=== PATIENT | female | born 1965 | race Caucasian/White ===

== ENCOUNTER 2020-02-27 10:02 | Day surgery (SDC) | payer MEDICAID, SELFPAY ==
[2020-01-15 09:45] VITALS: BMI 23.6
--- NOTE | 2020-01-15 09:58 | HO.ANESPROP2 ---
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) Depression Elevated rheumatoid factor Hand paresthesia Hepatitis C Hepatomegaly Hypertension Microhematuria Polysubstance abuse Surgical History Surgical History History of delivery History of esophagogastroduodenoscopy (EGD) Social History Social History Alcohol intake: current Alcohol intake frequency: 3 or more drinks per day Alcohol type: beer Smoking Status: Current every day smoker Smoked in Last 30 Days: Yes Patient Interested in Nicotine Replacement: No Patient Given Instructions on How to Stop Smoking: No Second Hand Smoke Exposure: No Use of substances other than those prescribed or required for medical reasons: No Advance Directives: No Advance Directives Information Provided: Yes Advance Directives on File: No Meds Allergies Allergy/AdvReac Type Severity Reaction Status Date / Time No Known Allergies Allergy Unverified 12/04/19 15:13 none Allergy Unknown Uncoded 07/05/18 00:00 Exam Exam Date and Time: January 15, 2020 0958 Height,Weight and Vital Signs: Height 4 ft 11 in Weight 53.07 kg Pertinent Lab Results Pertinent Lab Results: Laboratory Tests 09/24/19 11/10/19 15:38 15:25 WBC 3.6 L Hgb 9.9 L Hct 32.7 L Plt Count 57 L Sodium 134 L Potassium 3.7 Chloride 101 BUN 10 Creatinine 0.91 Assessment and Plan Assessment Anesthesia Assessment: Chart Reviewed
--- NOTE | 2020-02-25 14:51 | P.CONAN_ITS ---
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) Depression Elevated rheumatoid factor Hand paresthesia Hepatitis C Hepatomegaly History of abdominal paracentesis Hypertension Microhematuria Panic attacks Polysubstance abuse Surgical History Surgical History (Updated 02/24/20 @ 08:51 by Carole De La Torre) History of delivery History of esophagogastroduodenoscopy (EGD) Social History Social History Alcohol intake: current Alcohol intake frequency: 3 or more drinks per day Alcohol type: beer Smoking Status: Current every day smoker Cigarettes Per Day: 5.0 Second Hand Smoke Exposure: No Meds Allergies Allergy/AdvReac Type Severity Reaction Status Date / Time No Known Allergies Allergy Unverified 02/24/20 08:41 Home Medications Medication Instructions Recorded Confirmed Type beclomethasone dipropionate [Qvar 1 inh INHALATION BID 02/24/20 02/24/20 History RediHaler] buprenorphine-naloxone [Suboxone] 1 film BUCCAL DAILY 02/24/20 02/24/20 History fluticasone propionate [Flonase] 1 spray INTRANASAL DAILY 02/24/20 02/24/20 History furosemide 40 mg PO DAILY 02/24/20 02/24/20 History lisinopril 5 mg PO DAILY 02/24/20 02/24/20 History multivitamin 1 tab PO DAILY 02/24/20 02/24/20 History omeprazole 20 mg PO BID 02/24/20 02/24/20 History sertraline 50 mg PO DAILY 02/24/20 02/24/20 History spironolactone 25 mg PO DAILY 02/24/20 02/24/20 History thiamine HCl (vitamin B1) 100 mg PO DAILY 02/24/20 02/24/20 History trazodone 50 mg PO BEDTIME 02/24/20 02/24/20 History Exam Exam Date and Time: February 25, 2020 1451 Height,Weight and Vital Signs: Height 4 ft 11 in Weight 53.07 kg
--- NOTE | 2020-02-26 13:12 | HO.ANESPROP2 ---
HPI - Anesthesia Eval Consult details Narrative: 54yo F for Upper Endoscopy with Banding cx'd previously for ETOH DOS. 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) Depression Elevated rheumatoid factor Hand paresthesia Hepatitis C Hepatomegaly History of abdominal paracentesis Hypertension Microhematuria Panic attacks Polysubstance abuse Surgical History Surgical History (Updated 02/24/20 @ 08:51 by Carole De La Torre) History of delivery History of esophagogastroduodenoscopy (EGD) Social History Social History Alcohol intake: current Alcohol intake frequency: 3 or more drinks per day Alcohol type: beer Smoking Status: Current every day smoker Cigarettes Per Day: 5.0 Smoked in Last 30 Days: Yes Patient Interested in Nicotine Replacement: No Patient Given Instructions on How to Stop Smoking: No Second Hand Smoke Exposure: No Use of substances other than those prescribed or required for medical reasons: No Advance Directives: No Advance Directives Information Provided: Yes Advance Directives on File: No Meds Allergies Allergy/AdvReac Type Severity Reaction Status Date / Time No Known Allergies Allergy Unverified 02/24/20 08:41 Home Medications Medication Instructions Recorded Confirmed Type beclomethasone dipropionate [Qvar 1 inh INHALATION BID 02/24/20 02/24/20 History RediHaler] buprenorphine-naloxone [Suboxone] 1 film BUCCAL DAILY 02/24/20 02/24/20 History fluticasone propionate [Flonase] 1 spray INTRANASAL DAILY 02/24/20 02/24/20 History furosemide 40 mg PO DAILY 02/24/20 02/24/20 History lisinopril 5 mg PO DAILY 02/24/20 02/24/20 History multivitamin 1 tab PO DAILY 02/24/20 02/24/20 History omeprazole 20 mg PO BID 02/24/20 02/24/20 History sertraline 50 mg PO DAILY 02/24/20 02/24/20 History spironolactone 25 mg PO DAILY 02/24/20 02/24/20 History thiamine HCl (vitamin B1) 100 mg PO DAILY 02/24/20 02/24/20 History trazodone 50 mg PO BEDTIME 02/24/20 02/24/20 History Exam Exam Date and Time: February 26, 2020 1312 Height,Weight and Vital Signs: Height 4 ft 11 in Weight 53.07 kg Pertinent Lab Results Pertinent Lab Results: Laboratory Tests 09/24/19 11/10/19 15:38 15:25 WBC 3.6 L Hgb 9.9 L Hct 32.7 L Plt Count 57 L Sodium 134 L Potassium 3.7 Chloride 101 BUN 10 Creatinine 0.91 Assessment and Plan Assessment Anesthesia Assessment: Chart Reviewed
== END 2020-02-27 23:59 ==
LOC: HO.SSS 10:03
PROVIDERS: PCP Family Medicine; Visit Provider Internal Medicine Gastroenterology
DX: K70.31 Alcoholic cirrhosis of liver with ascites (principal); Z53.29 Procedure and treatment not carried out because of patient's decision for other reasons

== ENCOUNTER → 2020-03-18 10:14 | Outpatient (BNVA) | payer MEDICAID, SELFPAY | PROVIDERS: PCP Family Medicine; Visit Provider Internal Medicine Gastroenterology | DX: Z76.89 Persons encountering health services in other specified circumstances (principal) ==

== ENCOUNTER 2020-04-07 09:02 | Outpatient (REF) | payer MEDICAID, SELFPAY ==
--- NOTE | 2020-04-07 09:07 | US_ITS ---
EXAMINATION: US ABDOMEN COMPLETE CLINICAL INFORMATION: Alcoholic cirrhosis of liver with ascites. COMPARISON: Abdominal ultrasound 08/15/2019. Renal ultrasound with bladder 11/28/2016. TECHNIQUE: Real-time imaging of the abdominal viscera. FINDINGS: PANCREAS: Normal. ABDOMINAL AORTA: The proximal, mid, and distal segments are normal in caliber. INFERIOR VENA CAVA: Visualized portions are normal. LIVER: Liver is of normal size, coarse echotexture with lobulated border. No focal hepatic lesion. There is no intrahepatic biliary duct dilatation seen. GALLBLADDER: The gallbladder is physiologically distended. Multiple mobile gallstones are present. There is mild gallbladder wall thickness measuring 0.9 cm. No pericholecystic fluid collection seen. COMMON BILE DUCT: Normal in caliber measuring 1.0 cm in diameter. RIGHT KIDNEY: Normal. No hydronephrosis. No renal calculi or focal parenchymal lesions. The kidney measures 9.7 cm in maximum dimension. LEFT KIDNEY: Normal. No hydronephrosis. No renal calculi or focal parenchymal lesions. The kidney measures 12.8 cm in maximum dimension. SPLEEN: The spleen measures 16.3 cm in maximum dimension. There are 2 small accessory splenules measuring 2.1 x 2.0 x 2.5 cm and 1.8 x 1.4 x 1.8 cm. FREE FLUID: None. US/US abdomen complete IMPRESSION: 1. Coarse echogenic liver without focal lesion. 2. Two small accessory splenules. 3. Cholelithiasis with wall thickness measuring 0.9 cm. No pericholecystic fluid collection.
== END 2020-04-07 09:03 | disposition home or self-care (01) ==
LOC: HO.US 09:02
PROVIDERS: Visit Provider Internal Medicine Gastroenterology
DX: K70.31 Alcoholic cirrhosis of liver with ascites (principal)
CPT/HCPCS: 76700

== ENCOUNTER 2020-07-20 19:38 | Inpatient (IN) | payer MEDICAID, SELFPAY ==
--- NOTE | ~2020-07-20 | US_ITS ---
EXAMINATION: ULTRASOUND-GUIDED PARACENTESIS. CLINICAL INFORMATION: Ascites. COMPARISON: None TECHNIQUE: Following explaining ultrasound-guided paracentesis procedure, benefits and risk, a written consent was obtained. Patient was placed supine on ultrasound stretcher inflammatory ultrasound imaging was performed. An optimal site was selected and marked. The marked site was cleaned and draped in usual sterile manner. 1% lidocaine was administered puncture site along the right midabdomen. Through a small skin incision a 4 [place] Yueh catheter was advanced into the peritoneal space. After observing fluid return, this stylet was withdrawn and catheter connected to vacuum bottle via connecting cannula. After obtaining few 100 mL of acetic fluid patient coughed and the catheter came out. Repeat ultrasound imaging was obtained through the right abdomen. A optimal site was selected and the area was cleaned in usual sterile manner. 1% lidocaine was injected. Through a small skin incision a 5 [place] Yueh catheter was advanced into the right peritoneal space. After obtaining fluid return, stylet was withdrawn and catheter connected to vacuum bottle via connecting cannula. After obtaining all fluid and observing no more fluid return, catheter was withdrawn and complete hemostasis achieved at puncture site. Patient tolerated procedure extremely well. FINDINGS: On preliminary ultrasound imaging there is diffuse ascites. At approximately 3.2 L of document fluid removed. Part of this fluid was sent to pathology for cell culture and cell count and 13 g thinning. US/US paracentesis abd w/image IMPRESSION: Successful ultrasound-guided paracentesis performed without immediate complications.
--- NOTE | ~2020-07-20 | US_ITS ---
EXAMINATION: ULTRASOUND-GUIDED PARACENTESIS CLINICAL INFORMATION: Ascites COMPARISON: Previous abdominal ultrasound March 2020 TECHNIQUE: Procedure and risks and benefits including bleeding and infection were discussed with the patient and informed consent was obtained. The right lower quadrant was prepped and draped in the usual sterile fashion. The skin and soft tissues were anesthetized with 1% lidocaine plain. Ultrasound guidance and a 5 Chadian rapid centesis catheter, access to the ascitic fluid was obtained. 2.7 L of clear yellow fluid was removed. No diagnostic specimen was sent. FINDINGS: There is a moderate amount of ascites. US/US paracentesis abd w/image IMPRESSION: Ultrasound-guided paracentesis.
--- NOTE | ~2020-07-20 | XR_ITS ---
EXAMINATION: XR CHEST CLINICAL INFORMATION: Shortness of breath COMPARISON: Chest x-ray 04/03/2019 TECHNIQUE: Frontal view of the chest was obtained. FINDINGS: Cardiac silhouette is normal in size. Lungs are well aerated. Patchy bilateral airspace opacities are noted. There is no gross lobar consolidation. No pleural effusion or pneumothorax. No gross osseous abnormality. XR/XR chest 1V IMPRESSION: Patchy bilateral airspace disease most suggestive of viral infiltrate. Clinical correlation recommended.
--- NOTE | ~2020-07-20 | US_ITS ---
EXAMINATION: US ABDOMEN LIMITED CLINICAL INFORMATION: Evaluate for ascites. COMPARISON: Ultrasound abdomen complete 04/07/2020 and 08/15/2019. CT abdomen and pelvis urinary 05/08/2018. TECHNIQUE: Real-time imaging of all 4 quadrants. FINDINGS: Small amount of anechoic free fluid is present within the right upper quadrant and both lower quadrants. However, no free fluid is detected around the region of the spleen. US/US abdomen limited IMPRESSION: Small volume of ascitic fluid is present within the abdomen.
--- NOTE | ~2020-07-20 | US_ITS ---
EXAMINATION: US ABDOMEN LIMITED CLINICAL INFORMATION: Evaluate for ascites. COMPARISON: Ultrasound abdomen limited 07/22/2020. Ultrasound abdomen complete 04/07/2020. CT abdomen and pelvis 09/07/2018. MRI abdomen 09/07/2016. TECHNIQUE: Real-time imaging of all 4 quadrants. FINDINGS: Mild anechoic fluid is seen in all 4 quadrants. Partial visualization of hepatic cirrhosis. US/US abdomen limited IMPRESSION: Small peritoneal ascites appears mildly increased compared to the previous study.
[2020-07-20 19:57] VITALS: BP 103/53; PULSE 90; RESP 15; TEMP 37.2; O2SAT 93; BMI 24.2
[2020-07-20 20:04] VITALS: BP 98/57; PULSE 92; RESP 14; TEMP 37.2; O2SAT 93
--- NOTE | 2020-07-20 20:21 | ED_ITS ---
HPI - SOB/Dyspnea General Chief Complaint: Dyspnea Stated Complaint: INCREASING SOB,HX COPD Time Seen by Provider: 07/20/20 20:20 Source: patient Mode of arrival: ambulatory Limitations: no limitations History of Present Illness HPI Narrative: Patient 54 years old history of alcohol use and alcoholic cirrhosis COPD thrombocytopenia poly substance abuse sent from [facility] for 4 days of cough shortness of breath low-grade fever and chills was saturating 80% at room air improved to 97% on 2 L according to patient her sister was also sick last week but she does not know about her COVID testing. Patient had rapid COVID test done at the clinic which was negative. Patient still been drinking alcohol and last drink was earlier today. Patient denied any chest pain no significant abdominal pain Related Data Home Medications Medication Instructions Recorded Confirmed buprenorphine-naloxone [Suboxone] 1 film BUCCAL DAILY 02/24/20 07/20/20 furosemide 40 mg PO DAILY 02/24/20 07/20/20 multivitamin 1 tab PO DAILY 02/24/20 07/20/20 omeprazole 20 mg PO BID 02/24/20 07/20/20 sertraline 50 mg PO DAILY 02/24/20 07/20/20 spironolactone 100 mg PO DAILY 02/24/20 07/20/20 trazodone 50 mg PO BEDTIME 02/24/20 07/20/20 docusate sodium [DOK] 100 mg PO DAILY 07/20/20 07/20/20 ipratropium-albuterol [Combivent 1 puff INHALATION Q4H PRN 07/20/20 07/20/20 Respimat] Previous Rx's Medication Instructions Recorded magnesium oxide 400 mg PO DAILY 30 Days #30 tab 04/16/20 rifaximin 550 mg tablet 550 mg PO BID 30 Days #60 tab 06/14/20 Allergies Allergy/AdvReac Type Severity Reaction Status Date / Time No Known Allergies Allergy Verified 03/18/20 10:14 Review of Systems Review of Systems: Constitutional : No Weight loss, No Fever, No Chills ENT/Mouth : No sore throat, No Rhinorrhea Eyes: No Eye Pain, No Swelling Cardiovascular : No Chest Pain, no palpitations Respiratory : + Cough, No Sputum, ++shortness of breath Gastrointestinal : no Nausea, No Vomiting, No Diarrhea, No abdominal Pain, no black stools Genitourinary : No Dysuria, No Urinary Frequency Musculoskeletal : No joint pain, No Myalgias, No Joint Swelling Skin : No Skin Lesions, No rash Neuro : No Weakness, No Numbness, No Dizziness, No Headache Psych : No Anxiety/Panic, No Depression Heme/Lymph: No Bruising, No Lymphadenopathy Endocrine : No Polyuria, No Polydipsia All other systems reviewed and are negative PMFSH Past Medical History Medical History Alcohol abuse Anxiety COPD (chronic obstructive pulmonary disease) 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) Elevated rheumatoid factor Hand paresthesia Hepatitis C Hepatomegaly History of abdominal paracentesis Microhematuria Panic attacks Polysubstance abuse Surgical History History of delivery History of esophagogastroduodenoscopy (EGD) (~02/2017) Family History Family History Father Family history of high blood pressure Mother Alive and well Social History Social History Alcohol intake: current Alcohol intake frequency: 3 or more drinks per day Alcohol type: beer Smoking Status: Current every day smoker Tobacco Type: Cigarette Smoked in Last 30 Days: Yes Second Hand Smoke Exposure: No Use of substances other than those prescribed or required for medical reasons: No Advance Directives: No Advance Directives Information Provided: No Patient : No Physical Exam Vital Signs: Vital Signs: Last Vital Signs Temp 98.9 F 07/21/20 00:00 Pulse 99 07/21/20 00:00 Resp 21 H 07/21/20 00:00 BP 119/74 07/21/20 00:00 Pulse Ox 94 07/21/20 00:00 Oxygen Flow Rate 2 07/20/20 19:57 Body Mass Index 24.2 Appearance: Alert. Oriented X3. In mild distress. Eyes: PERRLA, No Nystagmus ENT: Pharynx normal. Oral Mucosa moist Neck: Normal inspection. Neck supple. CVS: Normal heart rate and rhythm. Pulses normal. Respiratory: Mild respiratory distress. Equal air entry bilateral, prolonged expiration with diffuse crackles bilateral Abdomen: Distended abdomen nontender, free fluid+ Bowel sounds are present, no mass palpable, no CVA tenderness Skin: Skin warm and dry. Normal skin color. Normal skin turgor. Extremities: No lower extremity edema. No calf tenderness Neuro: Oriented X 3. No motor deficit. No sensory deficit.No cerebellar signs , cranial nerves II-XII intact MDM - SOB/Dyspnea MDM Narrative Medical decision making narrative: Patient has alcoholic cirrhosis with recent contact with COVID patient came with body aches low-grade fever and cough for last 4- 5 days with hypoxia chest x-ray showed bilateral ground-glass opacities COVID PCR test came positive. Patient has elevated lactic acidosis secondary to hypoxia and COVID infection. Patient received IV antibiotics IV Decadron and 1 L of IV fluids fluid was guarded because of COVID-19 infection. patient does not have bacterial sepsis Lab Data Attestation: I reviewed the patient's lab results. Result diagrams: 07/20/20 20:44 07/20/20 20:43 Labs: Lab Results 07/20/20 07/20/20 07/20/20 Range/Units 20:43 20:43 20:43 WBC (4.8-10.8) X10*3/uL RBC (4.20-5.50) X10*6/uL Hgb (12.0-16.0) g/dl Hct (37-47) % MCV (80-98) fL MCH (27.0-33.0) pg MCHC (31.0-35.0) g/dl RDW (11.0-16.0) % Plt Count (160-400) X10*3/uL MPV Immature Gran % (Auto) Neut % (Auto) Lymph % (Auto) Noble % (Auto) Eos % (Auto) Baso % (Auto) Lymph # (Auto) Noble # (Auto) Eos # (Auto) Baso # (Auto) Abs Immat Gran (auto) Absolute Neuts (auto) Absolute Nucleated RBC (0.0-0.012) X10*3/uL Nucleated RBC % (auto) (0.0-0.2) /100WBC Neutrophils % (Manual) (45-73) % Band Neutrophils % (3-5) % Lymphocytes % (Manual) (20-40) % Monocytes % (Manual) (2-11) % Abs Neuts (Manual) (2.2-7.9) X10*3/uL Lymphocytes # (Manual) (0.6-4.8) X10*3/uL Monocytes # (Manual) (0.0-1.2) X10*3/uL Toxic Vacuolation Platelet Estimate (NORMAL) Plt Morphology Comment RBC Morphology Polychromasia /OIF Target Cells /OIF PT 31.0 H D (10.8-13.0) SEC INR 2.6 H (0.9-1.1) APTT (24.1-38.0) SEC Sodium 127 L (135-145) mmol/L Potassium 3.9 (3.3-5.1) mmol/L Chloride 96 (96-108) mmol/L Carbon Dioxide 23 (22-29) mmol/L Anion Gap 12 (12-20) BUN 21 H (9-16) mg/dL Creatinine 1.31 (0.5-1.4) mg/dL Estim Creat Clear Calc 37.3 Estimated GFR 42 Random Glucose 102 (60-115) mg/dL Lactic Acid (0.5-2.0) mmol/L Calcium 7.1 L (8.4-10.2) mg/dL Total Bilirubin 4.6 H (0.0-1.0) mg/dL Direct Bilirubin 3.7 H (0.0-0.5) mg/dL AST 177 H (5-31) U/L ALT 46 H (0-31) U/L Alkaline Phosphatase 150 H D (39-117) U/L Ammonia (13-55) umol/L Troponin I High Sens 13.9 (<3.5-17.0) ng/L Total Protein 7.5 (6.5-8.0) g/dL Albumin 2.1 L (3.5-5.0) g/dL Lipase 93 H (8-78) U/L Ethyl Alcohol mg/dL Coronavirus (PCR) (Negative) Influenza Type A (PCR) (Negative) Influenza Type B (PCR) (Negative) RSV RNA Qual (PCR) (Negative) 07/20/20 07/20/20 07/20/20 Range/Units 20:43 20:43 20:43 WBC (4.8-10.8) X10*3/uL RBC (4.20-5.50) X10*6/uL Hgb (12.0-16.0) g/dl Hct (37-47) % MCV (80-98) fL MCH (27.0-33.0) pg MCHC (31.0-35.0) g/dl RDW (11.0-16.0) % Plt Count (160-400) X10*3/uL MPV Immature Gran % (Auto) Neut % (Auto) Lymph % (Auto) Noble % (Auto) Eos % (Auto) Baso % (Auto) Lymph # (Auto) Noble # (Auto) Eos # (Auto) Baso # (Auto) Abs Immat Gran (auto) Absolute Neuts (auto) Absolute Nucleated RBC (0.0-0.012) X10*3/uL Nucleated RBC % (auto) (0.0-0.2) /100WBC Neutrophils % (Manual) (45-73) % Band Neutrophils % (3-5) % Lymphocytes % (Manual) (20-40) % Monocytes % (Manual) (2-11) % Abs Neuts (Manual) (2.2-7.9) X10*3/uL Lymphocytes # (Manual) (0.6-4.8) X10*3/uL Monocytes # (Manual) (0.0-1.2) X10*3/uL Toxic Vacuolation Platelet Estimate (NORMAL) Plt Morphology Comment RBC Morphology Polychromasia /OIF Target Cells /OIF PT (10.8-13.0) SEC INR (0.9-1.1) APTT (24.1-38.0) SEC Sodium (135-145) mmol/L Potassium (3.3-5.1) mmol/L Chloride (96-108) mmol/L Carbon Dioxide (22-29) mmol/L Anion Gap (12-20) BUN (9-16) mg/dL Creatinine (0.5-1.4) mg/dL Estim Creat Clear Calc Estimated GFR Random Glucose (60-115) mg/dL Lactic Acid 2.6 H* (0.5-2.0) mmol/L Calcium (8.4-10.2) mg/dL Total Bilirubin (0.0-1.0) mg/dL Direct Bilirubin (0.0-0.5) mg/dL AST (5-31) U/L ALT (0-31) U/L Alkaline Phosphatase (39-117) U/L Ammonia (13-55) umol/L Troponin I High Sens (<3.5-17.0) ng/L Total Protein (6.5-8.0) g/dL Albumin (3.5-5.0) g/dL Lipase (8-78) U/L Ethyl Alcohol < 10 mg/dL Coronavirus (PCR) POSITIVE A (Negative) Influenza Type A (PCR) NEGATIVE (Negative) Influenza Type B (PCR) NEGATIVE (Negative) RSV RNA Qual (PCR) NEGATIVE (Negative) 07/20/20 07/20/20 07/20/20 Range/Units 20:43 20:43 20:44 WBC 12.1 H (4.8-10.8) X10*3/uL RBC 2.98 L (4.20-5.50) X10*6/uL Hgb 9.2 L (12.0-16.0) g/dl Hct 28.8 L (37-47) % MCV 96.6 (80-98) fL MCH 30.9 (27.0-33.0) pg MCHC 31.9 (31.0-35.0) g/dl RDW 26.5 H (11.0-16.0) % Plt Count 33 L (160-400) X10*3/uL MPV Not Reportable Immature Gran % (Auto) Cancelled Neut % (Auto) Cancelled Lymph % (Auto) Cancelled Noble % (Auto) Cancelled Eos % (Auto) Cancelled Baso % (Auto) Cancelled Lymph # (Auto) Cancelled Noble # (Auto) Cancelled Eos # (Auto) Cancelled Baso # (Auto) Cancelled Abs Immat Gran (auto) Cancelled Absolute Neuts (auto) Cancelled Absolute Nucleated RBC 0.040 H (0.0-0.012) X10*3/uL Nucleated RBC % (auto) 0.3 H (0.0-0.2) /100WBC Neutrophils % (Manual) 89 H (45-73) % Band Neutrophils % 3 (3-5) % Lymphocytes % (Manual) 4 L (20-40) % Monocytes % (Manual) 4 (2-11) % Abs Neuts (Manual) 11.1 H (2.2-7.9) X10*3/uL Lymphocytes # (Manual) 0.5 L (0.6-4.8) X10*3/uL Monocytes # (Manual) 0.5 (0.0-1.2) X10*3/uL Toxic Vacuolation PRESENT Platelet Estimate DECREASED (NORMAL) Plt Morphology Comment NORMAL RBC Morphology NOTED Polychromasia 1+ (0-2) /OIF Target Cells 1+ (5-14) /OIF PT (10.8-13.0) SEC INR (0.9-1.1) APTT 35.8 (24.1-38.0) SEC Sodium (135-145) mmol/L Potassium (3.3-5.1) mmol/L Chloride (96-108) mmol/L Carbon Dioxide (22-29) mmol/L Anion Gap (12-20) BUN (9-16) mg/dL Creatinine (0.5-1.4) mg/dL Estim Creat Clear Calc Estimated GFR Random Glucose (60-115) mg/dL Lactic Acid (0.5-2.0) mmol/L Calcium (8.4-10.2) mg/dL Total Bilirubin (0.0-1.0) mg/dL Direct Bilirubin (0.0-0.5) mg/dL AST (5-31) U/L ALT (0-31) U/L Alkaline Phosphatase (39-117) U/L Ammonia 92 H (13-55) umol/L Troponin I High Sens (<3.5-17.0) ng/L Total Protein (6.5-8.0) g/dL Albumin (3.5-5.0) g/dL Lipase (8-78) U/L Ethyl Alcohol mg/dL Coronavirus (PCR) (Negative) Influenza Type A (PCR) (Negative) Influenza Type B (PCR) (Negative) RSV RNA Qual (PCR) (Negative) ECG Data Attestation: I personally reviewed and interpreted this ECG as follows: Interpretation: Normal sinus rhythm heart rate 89 beats per minute poor progression of R-wave in anterior leads normal intervals normal axis no acute ischemic changes Discharge Plan Discharge Clinical Impression: COVID-19, Alcoholic cirrhosis of liver with ascites, Hypoxia, Thrombocytopenia, Hyperammonemia COPD (chronic obstructive pulmonary disease) Qualifiers: COPD type: chronic bronchitis Chronic bronchitis type: mucopurulent Qualified Code(s): J41.1 - Mucopurulent chronic bronchitis Patient Disposition: Admitted As Inpatient
--- NOTE | 2020-07-20 20:22 | ECG_ITS ---
Test Reason : DIFFICULTY BREATHING Blood Pressure : / mmHG Vent. Rate : 089 BPM Atrial Rate : 089 BPM P-R Int : 136 ms QRS Dur : 082 ms QT Int : 390 ms P-R-T Axes : -03 -12 040 degrees QTc Int : 474 ms Normal sinus rhythm Minimal criteria for LVH, could be normal variant Borderline ECG When compared with ECG of 08-AUG-2016 13:07, No significant changes seen Referred By: Davey Meehan Electronically Signed By:SHERIF BLANC
[2020-07-20 20:50] VITALS: BP 112/57; PULSE 89; RESP 18; O2SAT 97
[2020-07-20 21:02] LABS: INTERNATIONAL NORM RATIO 2.6 (0.9-1.1)
[2020-07-20 21:05] LABS: Partial Thromboplastin Time 35.8 SEC (24.1-38.0)
[2020-07-20 21:12] LABS: Hematocrit 28.8 % (37-47); Mean Corpuscular Volume 96.6 fL (80-98); NRBC Pct Auto 0.3 /100WBC (0.0-0.2); Red Blood Count 2.98 X10*6/uL (4.20-5.50)
[2020-07-20 21:14] LABS: Hemoglobin 9.2 g/dl (12.0-16.0); Mean Corpuscular HGB Conc 31.9 g/dl (31.0-35.0); Mean Corpuscular Hemoglobin 30.9 pg (27.0-33.0); Red Cell Distribution Width 26.5 % (11.0-16.0); White Blood Count 12.1 X10*3/uL (4.8-10.8)
[2020-07-20 21:15] LABS: Ammonia 92 umol/L (13-55)
[2020-07-20 21:18] LABS: PLT ABN DIST 1; Platelet Count 33 X10*3/uL (160-400)
[2020-07-20 21:20] LABS: Ethanol < 10 mg/dL; Lactic Acid 2.6 mmol/L (0.5-2.0)
[2020-07-20 21:22] LABS: Alanine Aminotransferase 46 U/L (0-31); Albumin Level 2.1 g/dL (3.5-5.0); Alkaline Phosphatase 150 U/L (39-117); Anion Gap 12 (12-20); Aspartate Amino Transferase 177 U/L (5-31); Bilirubin Direct 3.7 mg/dL (0.0-0.5); Bilirubin Total 4.6 mg/dL (0.0-1.0); Blood Urea Nitrogen 21 mg/dL (9-16); Calcium 7.1 mg/dL (8.4-10.2); Carbon Dioxide 23 mmol/L (22-29); Chloride 96 mmol/L (96-108); Creatinine Clr Calc Pharmacy 37.3; Estimated Glomerular Filt Rate 42; Glucose Random 102 mg/dL (60-115); Potassium 3.9 mmol/L (3.3-5.1); Sodium 127 mmol/L (135-145); Total Protein 7.5 g/dL (6.5-8.0)
[2020-07-20 21:24] LABS: Troponin-I High Sensitivity 13.9 ng/L (<3.5-17.0)
[2020-07-20 21:33] LABS: Influenza A PCR NEGATIVE (Negative); Influenza B PCR NEGATIVE (Negative); Resp Syncy Virus RNA Qual PCR NEGATIVE (Negative); SARS COV2 PCR INHOUSE POSITIVE (Negative)
[2020-07-20 21:34] LABS: Lipase 93 U/L (8-78)
[2020-07-20 21:34] LABS: Band Neutrophils Percent 3 % (3-5); Lymphocytes Absolute Manual 0.5 X10*3/uL (0.6-4.8); Lymphocytes Percent Manual 4 % (20-40); Monocytes Absolute Manual 0.5 X10*3/uL (0.0-1.2); Monocytes Percent Manual 4 % (2-11); Neutrophils Absolute Manual 11.1 X10*3/uL (2.2-7.9); Neutrophils Percent Manual 89 % (45-73)
[2020-07-20 21:35] LABS: RBC Morphology NOTED; Target Cells 1+ (5-14) /OIF
[2020-07-20 21:36] LABS: Polychromasia 1+ (0-2) /OIF; Toxic Vacuolation PRESENT
[2020-07-20 21:39] LABS: Platelet Estimate DECREASED (NORMAL); Platelet Morphology Comment NORMAL
[2020-07-20] MEDS: cefTRIAXone sodium 1 GM in 0.9 % Sodium Chloride 50 ML IV (21:40)
[2020-07-20 22:00] VITALS: BP 113/61; PULSE 91; RESP 16; O2SAT 94
[2020-07-20] MEDS: Azithromycin 500 MG in 0.9 % Sodium Chloride 250 ML 125 MG IV (22:20)
[2020-07-20 22:52] LABS: Reflex Lactate? Lactic Acid Added
[2020-07-20] MEDS: 0.9 % Sodium Chloride 1,000 ML 999 ML IVCONT (22:58)
[2020-07-20] MEDS: dexAMETHasone sod phosphate 4 MG/ML VIAL 6 MG IVPUSH (23:01)
[2020-07-20] MEDS: Albuterol/Iprat 2.5/0.5MG 3 ML AMPUL.NEB INHALE (23:18)
[2020-07-20 23:26] VITALS: PULSE 98; O2SAT 95
[2020-07-20] MEDS: Lactulose 20 GM/30 ML SOLUTION PO (23:47)
--- NOTE | 2020-07-20 23:58 | PC.NURSE ---
Admitting MD is at bedside
[2020-07-21] VITALS (12 sets, daily range): BP systolic 103–145; BP diastolic 64–85; PULSE 76–113; RESP 14–24; TEMP 36.2–37.2; O2SAT 94–97
--- NOTE | 2020-07-21 00:12 | P.HPHOSP_ITS ---
History of Present Illness Date of Service: 07/20/20 Chief Complaint: SOB 54-year-old female with past medical history of alcoholic liver cirrhosis, ascites, hepatitis-C, COPD, alcohol abuse, anxiety, polysubstance abuse presents to the hospital complaints of shortness of breath for the past few days. Patient reports cough, sputum production, and some mild fever and chills. Patient reports that her with sick recently but was not confirmed COVID. Denies any chest pain, no abdominal pain although feels her abdomen is very tired from all the ascites, denies any nausea or vomiting, no diarrhea or constipation, although has some episodes of loss of bowel control, denies any urinary symptoms and no lower extremity edema. She denies any weakness numbness or tingling. On arrival to the ED patient noted to be 85% O2 on room air, currently on 2 L satting 92-94%. Other vital significant for BP of 129/79, heart rate of 113, respiratory rate of 24, temp of 98.4?, Labs on arrival are WBC count of 12.1, hemoglobin of 9.2, hematocrit 28.8, PT of 31, INR of 2.6, sodium 127, BUN of 21, creatinine of 131, lactic acid of 2.6 which improved to 1.6, total bili of 4.6, direct bili of 3.7, AST of 177, ALT of 46, alk-phos of 150, ammonia of 92, albumin of 2.1, lipase of 93, UA that is positive for blood and RBC, UDS negative, COVID-19 positive. Chest x-ray shows bilateral patchy airspace disease most suggestive of viral pneumonia Past medical history as below on confirmed with patient Review of Systems Review of Systems: Yes all other systems are reviewed and are negative [facility] Medical History Alcohol abuse Anxiety COPD (chronic obstructive pulmonary disease) 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) Elevated rheumatoid factor Hand paresthesia Hepatitis C Hepatomegaly History of abdominal paracentesis Microhematuria Panic attacks Polysubstance abuse Family History Father Family history of high blood pressure Mother Alive and well Surgical History History of delivery History of esophagogastroduodenoscopy (EGD) (~02/2017) Social History Alcohol intake: current Alcohol intake frequency: 3 or more drinks per day Alcohol type: beer Smoking Status: Current every day smoker Tobacco Type: Cigarette Smoked in Last 30 Days: Yes Second Hand Smoke Exposure: No Use of substances other than those prescribed or required for medical reasons: No Advance Directives: No Advance Directives Information Provided: No Patient : No Meds Allergies Allergy/AdvReac Type Severity Reaction Status Date / Time No Known Allergies Allergy Verified 03/18/20 10:14 Active Medications: Current Medications Generic Name Dose Route Start Last Admin Trade Name Freq PRN Reason Stop Dose Admin Pharmacy Consult 1 each 07/20/20 20:32 Consult Rx Perform Med Rec MISCELLANE ONCE PRN Consult order Home Medications Medication Instructions Recorded Confirmed Last Taken Type buprenorphine-naloxone [Suboxone] 1 film BUCCAL DAILY 02/24/20 07/20/20 Unknown History furosemide 40 mg PO DAILY 02/24/20 07/20/20 Unknown History multivitamin 1 tab PO DAILY 02/24/20 07/20/20 Unknown History omeprazole 20 mg PO BID 02/24/20 07/20/20 Unknown History sertraline 50 mg PO DAILY 02/24/20 07/20/20 Unknown History spironolactone 100 mg PO DAILY 02/24/20 07/20/20 Unknown History trazodone 50 mg PO BEDTIME 02/24/20 07/20/20 Unknown History docusate sodium [DOK] 100 mg PO DAILY 07/20/20 07/20/20 Unknown History ipratropium-albuterol [Combivent 1 puff INHALATION Q4H PRN 07/20/20 07/20/20 Unknown History Respimat] Physical Exam Vital Signs and Narrative: Vital Signs: Last Vital Signs Temp 99 F 07/20/20 20:04 Pulse 98 07/20/20 23:26 Resp 16 07/20/20 22:00 BP 113/61 07/20/20 22:00 Pulse Ox 94 07/20/20 22:00 Oxygen Flow Rate 2 07/20/20 19:57 Body Mass Index 24.2 Const: General: cooperative and no acute distress Orientation/consciousness: patient oriented x3 Eyes: General: appearance normal, both eyes and all related structures Resp: Other: On nasal cannula Effort & Inspection: normal respiratory effort and able to speak in complete sentences Cardio: Rate: regular rate Rhythm: regular rhythm GI: Other: Significant ascites Skin: General skin exam: no rashes or lesions noted Neuro: General: patient oriented x3 Cognition (Neuro): normal cognition Extrem: General: Yes normal to inspection and Yes no pedal edema Results Labs CBC and Chem 7: 07/21/20 05:44 07/20/20 20:43 Labs: Laboratory Results - last 24 hr 07/20/20 07/20/20 07/20/20 20:43 20:43 20:43 MCV MCH MCHC RDW Plt Count MPV Immature Gran % (Auto) Neut % (Auto) Lymph % (Auto) Isabela % (Auto) Eos % (Auto) Baso % (Auto) Lymph # (Auto) Isabela # (Auto) Eos # (Auto) Baso # (Auto) Abs Immat Gran (auto) Absolute Neuts (auto) Absolute Nucleated RBC Nucleated RBC % (auto) Neutrophils % (Manual) Band Neutrophils % Lymphocytes % (Manual) Monocytes % (Manual) Abs Neuts (Manual) Lymphocytes # (Manual) Monocytes # (Manual) Toxic Vacuolation Platelet Estimate Plt Morphology Comment RBC Morphology Polychromasia Target Cells PT 31.0 H D INR 2.6 H APTT Anion Gap 12 Estim Creat Clear Calc 37.3 Estimated GFR 42 Random Glucose 102 Lactic Acid Calcium 7.1 L Total Bilirubin 4.6 H Direct Bilirubin 3.7 H AST 177 H ALT 46 H Alkaline Phosphatase 150 H D Ammonia Troponin I High Sens 13.9 Total Protein 7.5 Albumin 2.1 L Lipase 93 H Ethyl Alcohol Coronavirus (PCR) Influenza Type A (PCR) Influenza Type B (PCR) RSV RNA Qual (PCR) 07/20/20 07/20/20 07/20/20 20:43 20:43 20:43 MCV MCH MCHC RDW Plt Count MPV Immature Gran % (Auto) Neut % (Auto) Lymph % (Auto) Isabela % (Auto) Eos % (Auto) Baso % (Auto) Lymph # (Auto) Isabela # (Auto) Eos # (Auto) Baso # (Auto) Abs Immat Gran (auto) Absolute Neuts (auto) Absolute Nucleated RBC Nucleated RBC % (auto) Neutrophils % (Manual) Band Neutrophils % Lymphocytes % (Manual) Monocytes % (Manual) Abs Neuts (Manual) Lymphocytes # (Manual) Monocytes # (Manual) Toxic Vacuolation Platelet Estimate Plt Morphology Comment RBC Morphology Polychromasia Target Cells PT INR APTT Anion Gap Estim Creat Clear Calc Estimated GFR Random Glucose Lactic Acid 2.6 H* Calcium Total Bilirubin Direct Bilirubin AST ALT Alkaline Phosphatase Ammonia Troponin I High Sens Total Protein Albumin Lipase Ethyl Alcohol < 10 Coronavirus (PCR) POSITIVE A Influenza Type A (PCR) NEGATIVE Influenza Type B (PCR) NEGATIVE RSV RNA Qual (PCR) NEGATIVE 07/20/20 07/20/20 07/20/20 20:43 20:43 20:44 MCV 96.6 MCH 30.9 MCHC 31.9 RDW 26.5 H Plt Count 33 L MPV Not Reportable Immature Gran % (Auto) Cancelled Neut % (Auto) Cancelled Lymph % (Auto) Cancelled Isabela % (Auto) Cancelled Eos % (Auto) Cancelled Baso % (Auto) Cancelled Lymph # (Auto) Cancelled Isabela # (Auto) Cancelled Eos # (Auto) Cancelled Baso # (Auto) Cancelled Abs Immat Gran (auto) Cancelled Absolute Neuts (auto) Cancelled Absolute Nucleated RBC 0.040 H Nucleated RBC % (auto) 0.3 H Neutrophils % (Manual) 89 H Band Neutrophils % 3 Lymphocytes % (Manual) 4 L Monocytes % (Manual) 4 Abs Neuts (Manual) 11.1 H Lymphocytes # (Manual) 0.5 L Monocytes # (Manual) 0.5 Toxic Vacuolation PRESENT Platelet Estimate DECREASED Plt Morphology Comment NORMAL RBC Morphology NOTED Polychromasia 1+ (0-2) Target Cells 1+ (5-14) PT INR APTT 35.8 Anion Gap Estim Creat Clear Calc Estimated GFR Random Glucose Lactic Acid Calcium Total Bilirubin Direct Bilirubin AST ALT Alkaline Phosphatase Ammonia 92 H Troponin I High Sens Total Protein Albumin Lipase Ethyl Alcohol Coronavirus (PCR) Influenza Type A (PCR) Influenza Type B (PCR) RSV RNA Qual (PCR) Imaging Radiologist's Impressions: Impressions Chest X-Ray 07/20/20 20:22 IMPRESSION: Patchy bilateral airspace disease most suggestive of viral infiltrate. Clinical correlation recommended. Assessment and Plan (1) Acute respiratory failure with hypoxia: Status: Acute (2) Pneumonia due to COVID-19 virus: Status: Acute (3) Coagulopathy: Status: Acute (4) Transaminitis: Status: Acute (5) Thrombocytopenia: Status: Acute (6) Alcohol abuse with withdrawal: Status: Acute (7) Alcoholic cirrhosis of liver with ascites: Status: Acute (8) Hyperammonemia: Status: Acute This is a 54-year-old female with past medical history of alcoholic liver cir rhosis who presents to the hospital shortness of breath found to be COVID positive # acute hypoxic respiratory failure - secondary to COVID-19 pneumonia - requiring 2 L of oxygen, presented with 85% O2 on room air - chest x-ray suggestive of bilateral infiltrates - will start her on dexamethasone given her hypoxia - consult infectious disease for alternate therapies # COVID-19 pneumonia - chest X suggestive of bilateral infiltrates seen with COVID-19 - COVID-19 PCR positive - will start her on dexamethasone - O2 as required - monitor respiratory status # coagulopathy - has elevated INR - most likely secondary to liver disease - will monitor for any acute bleed # abdominal ascites secondary to liver cirrhosis - will consult IR for therapeutic paracentesis - continue furosemide, rifaximin, and spironolactone # transaminitis - secondary to liver cirrhosis - follow LFTs # hyperammonemia - does not have significant confusion or encephalopathy - received lactulose in the ED, will continue # alcohol abuse with potential withdrawal - drink 3 x 24 oz beer bottles daily - start on phenobarb protocol - thiamine and folic acid supplement DVT prophylaxis: Mechanical SCDs
[2020-07-21 00:32] LABS: ~Lactic Acid-LAB USE ONLY 1.6 mmol/L (0.5-2.0)
--- NOTE | 2020-07-21 01:15 | PC.NURSE ---
pt comes from [facility] via ems for SOB and low o2 sat at 80's in room air. Per PCP, Rapid covid was done, and result was negative. On the arrival, pt jaundice all over the body states that drink beers everyday. c/o sob. 2 L o2 applied via nc o2 maintained at mid 90's (94-95%). per pt, no home o2 use. Portable chest xray done showed ?covid. RSV/FLU/COVID swab showed covid +. EKG, lab work completed. LA 2.6 initially, but improved to 1.6 after 1 L NS bolus. Rocephin and Azithromycin given via IV. Pt ambulated to bedside commode with 1 person assist. [place] and drink given. Plan is to admit, and under hospitalist care. Sleeping comfortable and awaiting for bed assignment. will continue to monitor.
[2020-07-21] MEDS: 0.9 % Sodium Chloride Flush 3 ML SYRINGE IVFLUSH ×3 (02:00→16:16)
[2020-07-21] MEDS: Omeprazole 20 MG CAPSULE.DR PO ×3 (02:01→20:11)
[2020-07-21] MEDS: Heparin Sodium,Porcine 5,000 UNIT/ML VIAL 5000 UNIT SUBCUT (02:01)
[2020-07-21] MEDS: traZODone HCL 50 MG TABLET PO ×2 (02:01→20:11)
[2020-07-21 02:34] LABS: Glucose Urine UA NEG (NEG); Leukocyte Esterase Urine NEG (NEG); Nitrite Urine NEG (NEG); Urine Blood 2+ (NEG); Urine Ketones NEG (NEG); Urine Protein NEG (NEG-TRACE)
[2020-07-21 02:37] LABS: Appearance Urine CLEAR; Color Urine AMBER
[2020-07-21 02:43] LABS: Bacteria Urine 1+ /LPF; Mucus Urine 1+ /LPF; Squamous Epithelial Cell Urine 2+ /LPF
[2020-07-21 03:14] LABS: Amphetamine Screen Urine Not Detected (Not Detect); Barbiturates, Urine Not Detected (Not Detect); Benzodiazepines Screen Urine Not Detected (Not Detect); Cannabinoid Screen Urine Not Detected (Not Detect); Cocaine Screen Urine Not Detected (Not Detect); Opiate Screen Urine Not Detected (Not Detect); Phencyclidine Screen Urine Not Detected (Not Detect)
[2020-07-21 06:06] LABS: Red Blood Count 2.78 X10*6/uL (4.20-5.50); Red Cell Distribution Width 26.5 % (11.0-16.0)
[2020-07-21 06:08] LABS: Hematocrit 26.6 % (37-47); Hemoglobin 8.5 g/dl (12.0-16.0); Mean Corpuscular Hemoglobin 30.6 pg (27.0-33.0); Mean Corpuscular Volume 95.7 fL (80-98); White Blood Count 11.8 X10*3/uL (4.8-10.8)
[2020-07-21 06:10] LABS: Platelet Count 28 X10*3/uL (160-400)
[2020-07-21 06:11] LABS: PLT ABN DIST 1
[2020-07-21 06:34] LABS: Anion Gap 11 (12-20); Blood Urea Nitrogen 25 mg/dL (9-16); Calcium 6.8 mg/dL (8.4-10.2); Carbon Dioxide 22 mmol/L (22-29); Chloride 101 mmol/L (96-108); Creatinine Clr Calc Pharmacy 37.1; Estimated Glomerular Filt Rate 42; Glucose Random 140 mg/dL (60-115); Potassium 4.6 mmol/L (3.3-5.1); Sodium 129 mmol/L (135-145)
[2020-07-21 06:48] LABS: Band Neutrophils Percent 3 % (3-5); Lymphocytes Absolute Manual 0.1 X10*3/uL (0.6-4.8); Lymphocytes Percent Manual 1 % (20-40); Monocytes Absolute Manual 0.2 X10*3/uL (0.0-1.2); Monocytes Percent Manual 2 % (2-11); Neutrophils Absolute Manual 11.4 X10*3/uL (2.2-7.9); Neutrophils Percent Manual 94 % (45-73)
[2020-07-21 06:49] LABS: RBC Morphology NOTED
[2020-07-21 06:50] LABS: Target Cells 1+ (5-14) /OIF
[2020-07-21 06:51] LABS: Hypochromasia 1+ (5-14) /OIF; Ovalocytes 1+ (5-14) /OIF; Platelet Estimate DECREASED (NORMAL); Platelet Morphology Comment NORMAL; Polychromasia 1+ (0-2) /OIF
[2020-07-21 06:52] LABS: Large Platelet PRESENT
[2020-07-21 06:53] LABS: Toxic Granulation PRESENT
[2020-07-21] MEDS: PHENobarbitaL sodium 130 MG/ML VIAL 175 MG IM (07:30)
[2020-07-21] MEDS: Furosemide 40 MG TABLET PO (07:31)
[2020-07-21 08:10] LABS: Alanine Aminotransferase 45 U/L (0-31); Alkaline Phosphatase 154 U/L (39-117); Aspartate Amino Transferase 168 U/L (5-31); Bilirubin Direct 3.4 mg/dL (0.0-0.5); Bilirubin Total 4.2 mg/dL (0.0-1.0); Total Protein 7.3 g/dL (6.5-8.0)
[2020-07-21] MEDS: Lactulose 20 GM/30 ML SOLUTION 30 GM PO ×3 (08:36→20:11)
[2020-07-21] MEDS: Buprenorphine/Naloxone 8/2 mg FILM 1 FILM BUCCAL (08:36)
[2020-07-21] MEDS: Spironolactone 25 MG TABLET 100 MG PO (08:37)
[2020-07-21] MEDS: Thiamine HCL 100 MG TABLET PO (08:37)
[2020-07-21] MEDS: Magnesium Oxide 400 MG TABLET PO (08:37)
[2020-07-21] MEDS: Sertraline HCL 50 MG TABLET PO (08:38)
[2020-07-21] MEDS: Multivitamin TABLET 1 TAB PO (08:38)
[2020-07-21] MEDS: Docusate Sodium 100 MG CAPSULE PO (08:38)
[2020-07-21] MEDS: Folic Acid 1 MG TABLET PO (08:38)
[2020-07-21] MEDS: dexAMETHasone sod phosphate 4 MG/ML VIAL 6 MG IVPUSH (08:39)
[2020-07-21] MEDS: rifAXIMin 550 MG TABLET PO ×2 (09:18→20:11)
[2020-07-21] MEDS: PHENobarbitaL sodium 130 MG/ML VIAL IM ×2 (10:13→13:11)
--- NOTE | 2020-07-21 12:48 | P.CDIC_ITS ---
CDI Concurrent Query Service Date: 07/26/20 Documentation Clarification: Please clarify if you are treating a proba ble/suspected/likely or confirmed: Viral Sepsis due to covid-19 pneumonia with acute hypoxic respiratory failure poa Covid-19 pneumonia with acute hypoxic respiratory failure Please specify if known COVID 19 with acute hypoxic resp failure Provider Response: Other Other Diagnosis: COVID 19 with acute hypoxic resp failure PLEASE DO NOT DELETE/MODIFY EXISTING CONTENT Additional information is needed in order to code to the highest accuracy and appropriate Severity of Illness (SOI). Please clarify the information noted below in your progress notes and discharge summary. Risk Factors/Clinical Indicators/Treatments SOB 80% RA improved to 97% on 2 liters oxygen covid positive, hypoxic. LA 2.6 WBC 11.8 RR 26 HR 113 low grade temp, does not have bacterial sepsis IV antibiotics, IV decadron, IV fluids CXR: 07/20-patchy b/l airspace disease most suggestive of viral infiltrate. CDS: Lakshmi Crawford CCS, CDIS Contact Number: [phone] Please Review the information above and exercise your independent professional judgment in responding to the query. If you concur, pleas document in the PROGRESS NOTES and DISCHARGE SUMMARY. If you do not agree with the query, please document in the query above. THIS QUERY IS PART OF THE PERMANENT MEDICAL RECORD
--- NOTE | 2020-07-21 15:10 | HO.PM.IMPN ---
Subjective Subjective Date of Service: 07/21/20 Interval History: follow up for covid 19/acute respiratory failure seen and examined this morning sleepy. denies any shortness of breath at this time, reports cough Review of Systems Review of Systems: Yes all other systems are reviewed and are negative Constitutional Constitutional: Denies chills and Denies fever(s) Cardiovascular Cardiovascular: Denies chest pain Gastrointestinal Gastrointestinal: Denies abdominal pain Physical Exam Vital Signs: Vital Signs: Last Vital Signs Temp 98 F 07/21/20 14:32 Pulse 88 07/21/20 14:32 Resp 17 07/21/20 14:32 BP 127/74 07/21/20 14:32 Pulse Ox 96 07/21/20 10:15 Oxygen Flow Rate 2 07/20/20 19:57 Body Mass Index 24.2 Const: Other: sleepy but easily arousable to verbal stimuli Nutritional Appearance: thin HENMT: Head: Yes normocephalic and Yes atraumatic Eyes: Sclerae: sclerae normal Chest: Chest palpation & inspection: normal inspection of the chest Resp: Effort & Inspection: normal respiratory effort and no respiratory distress Cardio: Rate: regular rate Rhythm: regular rhythm GI: Palpation (GI): Soft to palpation, nontender and Ascites present Neuro: Cranial nerves: Yes CN's II-XII intact bilaterally and Yes Bilaterally intact EOM present Extrem: General: Yes normal to inspection Objective Data Current Medications Generic Name Dose Route Start Last Admin Trade Name Freq PRN Reason Stop Dose Admin Acetaminophen 650 mg 07/21/20 00:42 Acetaminophen 325 Mg Tablet PO Q6H PRN Pain, Mild (Pain Scale 1-3) Albuterol/Ipratropium 3 ml 07/21/20 01:40 Albuterol/Iprat 2.5/0.5mg 3 Ml Ampul.Neb INHALE Q4H PRN Shortness Of Breath Buprenorphine/Naloxone 1 film 07/21/20 09:00 07/21/20 08:36 Buprenorphine/Naloxone 8/2 Mg Film BUCCAL 1 film DAILY ABBY Administration Dexamethasone Sodium Phosphate 6 mg 07/21/20 09:00 07/21/20 08:39 Dexamethasone Sod Phosphate 4 Mg/Ml Vial IVPUSH 6 mg DAILY ABBY Administration Docusate Sodium 100 mg 07/21/20 09:00 07/21/20 08:38 Docusate Sodium 100 Mg Capsule PO 100 mg DAILY ABBY Administration Folic Acid 1 mg 07/21/20 09:00 07/21/20 08:38 Folic Acid 1 Mg Tablet PO 1 mg DAILY ABBY Administration Furosemide 40 mg 07/21/20 08:00 07/21/20 07:31 Furosemide 40 Mg Tablet PO 40 mg DAILY@0800 ABBY Administration Protocol Lactulose 30 gm 07/21/20 09:00 07/21/20 08:36 Lactulose 20 Gm/30 Ml Solution PO 30 gm TID ABBY Administration Magnesium Oxide 400 mg 07/21/20 09:00 07/21/20 08:37 Magnesium Oxide 400 Mg Tablet PO 400 mg DAILY ABBY Administration Medication 1 each 07/21/20 09:00 No Benzodiazepines MISCELLANE DAILY [facility] Protocol Multivitamins/Vitamin C 1 tab 07/21/20 09:00 07/21/20 08:38 Multivitamin Tablet PO 1 tab DAILY ABBY Administration Omeprazole 20 mg 07/21/20 00:42 07/21/20 08:37 Omeprazole 20 Mg Capsule.Dr PO 20 mg BID ABBY Administration Ondansetron HCl 4 mg 07/21/20 00:42 Ondansetron Hcl 4 Mg/2 Ml Vial IVPUSH Q8H PRN Nausea and Vomiting Pharmacy Consult 1 each 07/20/20 20:32 Consult Rx Perform Med Rec MISCELLANE ONCE PRN Consult order Phenobarbital 30 mg 07/21/20 21:00 Phenobarbital 30 Mg Tablet PO 07/23/20 09:01 BID [facility] Phenobarbital 15 mg 07/23/20 21:00 Phenobarbital 15 Mg Tablet PO 07/25/20 09:01 BID ABBY Phenobarbital 15 mg 07/25/20 21:00 Phenobarbital 15 Mg Tablet PO 07/26/20 21:01 BEDTIME ABBY Rifaximin 550 mg 07/21/20 09:00 07/21/20 09:18 Rifaximin 550 Mg Tablet PO 550 mg BID ABBY Administration Sertraline HCl 50 mg 07/21/20 09:00 07/21/20 08:38 Sertraline Hcl 50 Mg Tablet PO 50 mg DAILY [facility] Administration Sodium Chloride 3 ml 07/21/20 00:42 07/21/20 08:40 0.9 % Sodium Chloride Flush 3 Ml Syringe IVFLUSH 3 ml QSHIFT [facility] Administration Spironolactone 100 mg 07/21/20 09:00 07/21/20 08:37 Spironolactone 25 Mg Tablet PO 100 mg DAILY ABBY Administration Protocol Thiamine HCl 100 mg 07/21/20 09:00 07/21/20 08:37 Thiamine Hcl 100 Mg Tablet PO 100 mg DAILY ABBY Administration Trazodone HCl 50 mg 07/21/20 00:42 07/21/20 02:01 Trazodone Hcl 50 Mg Tablet PO 50 mg BEDTIME ABBY Administration Labs CBC & Chem 7: 07/21/20 05:44 07/21/20 05:44 Assessment and Plan (1) Pneumonia due to COVID-19 virus: Status: Acute (2) Transaminitis: Status: Acute (3) Acute respiratory failure with hypoxia: Status: Acute Assessment and Plan: This is a 54-year-old female with history of chronic hepatitis C, alcohol related liver cirrhosis with ascites, pancytopenia, IgG monoclonal gammopathy, COPD, substance abuse who presented to the emergency department with shortness of breath found to have acute hypoxic respiratory failure/COVID-19 Acute respiratory failure with hypoxia Pneumonia secondary to COVID-19 Viral sepsis -IV dexamethasone -supplemental oxygen as needed -supportive care abdominal ascites secondary to liver cirrhosis - will consult IR for therapeutic paracentesis - continue furosemide, rifaximin, and spironolactone thrombocytopenia chronic. trending down r/t underlying liver cirrhosis -platelet transfusion -follow CBC Anemia chronic. -follow cbc transaminitis secondary to liver cirrhosis. at baseline - follow LFTs hepatic encephalopathy Not on lactulose at home, continue lactulose started on admission -follow ammonia level -continue xifaxan alcohol abuse with potential for withdrawal drink 3 x 24 oz beer bottles daily - continue phenobarb protocol - thiamine and folic acid supplement coagulopathy - has elevated INR - most likely secondary to liver disease - will monitor for any acute bleed polysubstance abuse -continue suboxone elevated lactic acid on admission likely r/t to liver dz, not r/t sepsis hyponatremia NA 129 r/t underlying liver dz -follow BMP mood -continue sertraline dvt ppx - mechanical devices attending: Dr. Marley
[2020-07-21] MEDS: Lidocaine HCl 1 % MPF 5 ML VIAL SUBCUT (16:18)
--- NOTE | 2020-07-21 16:18 | HO.RADPN ---
RADIOLOGY Narrative Narrative: Right lower quadrant paracentesis performed using a 5 Fr catheter. 2.7 L clear yellow fluid was removed. No diagnostic specimen was sent.
[2020-07-21] MEDS: PHENobarbitaL 30 MG TABLET PO (20:11)
[2020-07-22] VITALS (7 sets, daily range): BP systolic 127–143; BP diastolic 60–82; PULSE 82–102; RESP 18–22; TEMP 36.4–37.3; O2SAT 90–95
[2020-07-22] MEDS: 0.9 % Sodium Chloride Flush 3 ML SYRINGE IVFLUSH ×3 (00:36→17:03)
[2020-07-22 06:30] LABS: Ammonia 105 umol/L (13-55)
[2020-07-22 06:46] LABS: Mean Corpuscular Volume 96.5 fL (80-98)
[2020-07-22 06:48] LABS: Mean Corpuscular Hemoglobin 30.9 pg (27.0-33.0); NRBC Pct Auto 0.2 /100WBC (0.0-0.2); Red Blood Count 2.59 X10*6/uL (4.20-5.50); Red Cell Distribution Width 26.8 % (11.0-16.0); White Blood Count 12.3 X10*3/uL (4.8-10.8)
[2020-07-22 06:54] LABS: Anion Gap 10 (12-20); Blood Urea Nitrogen 31 mg/dL (9-16); Calcium 6.9 mg/dL (8.4-10.2); Carbon Dioxide 24 mmol/L (22-29); Chloride 105 mmol/L (96-108); Creatinine Clr Calc Pharmacy 41.5; Estimated Glomerular Filt Rate 48; Glucose Random 113 mg/dL (60-115); Potassium 4.5 mmol/L (3.3-5.1); Sodium 134 mmol/L (135-145)
[2020-07-22 07:09] LABS: PLT ABN DIST 1; Platelet Count 31 X10*3/uL (160-400)
[2020-07-22 07:10] LABS: INTERNATIONAL NORM RATIO 2.4 (0.9-1.1); Prothrombin Time 28.6 SEC (10.8-13.0)
[2020-07-22] MEDS: dexAMETHasone sod phosphate 4 MG/ML VIAL 6 MG IVPUSH (09:08)
[2020-07-22] MEDS: Lactulose 20 GM/30 ML SOLUTION 30 GM PO ×2 (09:08→20:26)
[2020-07-22] MEDS: Omeprazole 20 MG CAPSULE.DR PO ×2 (09:09→20:26)
[2020-07-22] MEDS: PHENobarbitaL 30 MG TABLET PO ×2 (09:09→20:26)
[2020-07-22] MEDS: Multivitamin TABLET 1 TAB PO (09:09)
[2020-07-22] MEDS: Sertraline HCL 50 MG TABLET PO (09:09)
[2020-07-22] MEDS: Thiamine HCL 100 MG TABLET PO (09:09)
[2020-07-22] MEDS: rifAXIMin 550 MG TABLET PO ×2 (09:09→20:26)
[2020-07-22] MEDS: Furosemide 40 MG TABLET PO (09:10)
[2020-07-22] MEDS: Spironolactone 25 MG TABLET 100 MG PO (09:10)
[2020-07-22] MEDS: Magnesium Oxide 400 MG TABLET PO (09:10)
[2020-07-22] MEDS: Folic Acid 1 MG TABLET PO (09:10)
[2020-07-22] MEDS: Buprenorphine/Naloxone 8/2 mg FILM 1 FILM BUCCAL (09:17)
--- NOTE | 2020-07-22 09:55 | MHC.CM.PN ---
CM met with patient at the bedside who reports her 2 grown sons live with her and do assist her with ADL's/IADL's when needed. Patient amb with a walker. Patient states HCP is her son Weston [phone], copy requested. Discussed discharge plan, home no services. Son will provide transportation. CM will continue to follow for discharge needs.
--- NOTE | 2020-07-22 13:59 | HO.PM.IMPN ---
Subjective Subjective Date of Service: 07/22/20 Interval History: follow up covid 19, ascites abdomen feeling distended this am ongoing dry cough. no other complaints Review of Systems Review of Systems: Yes all other systems are reviewed and are negative Constitutional Constitutional: Denies chills and Denies fever(s) Cardiovascular Cardiovascular: Denies chest pain Physical Exam Vital Signs: Vital Signs: Last Vital Signs Temp 98.2 F 07/22/20 11:37 Pulse 89 07/22/20 11:37 Resp 22 H 07/22/20 11:37 BP 143/76 H 07/22/20 11:37 Pulse Ox 94 07/22/20 11:37 Oxygen Flow Rate 2 07/20/20 19:57 Body Mass Index 24.2 Const: General: comfortable, no acute distress, alert and awake Nutritional Appearance: thin HENMT: Head: Yes normocephalic and Yes atraumatic Eyes: Sclerae: sclerae normal Chest: Chest palpation & inspection: normal inspection of the chest Resp: Effort & Inspection: normal respiratory effort and no respiratory distress Cardio: Rate: regular rate Rhythm: regular rhythm GI: Other: softly distended Palpation (GI): nontender and Ascites present Neuro: Cranial nerves: Yes CN's II-XII intact bilaterally and Yes Bilaterally intact EOM present Extrem: General: Yes normal to inspection Objective Data Current Medications Generic Name Dose Route Start Last Admin Trade Name Freq PRN Reason Stop Dose Admin Acetaminophen 650 mg 07/21/20 00:42 Acetaminophen 325 Mg Tablet PO Q6H PRN Pain, Mild (Pain Scale 1-3) Albuterol/Ipratropium 3 ml 07/21/20 01:40 Albuterol/Iprat 2.5/0.5mg 3 Ml Ampul.Neb INHALE Q4H PRN Shortness Of Breath Buprenorphine/Naloxone 1 film 07/21/20 09:00 07/22/20 09:17 Buprenorphine/Naloxone 8/2 Mg Film BUCCAL 1 film DAILY ABBY Administration Dexamethasone Sodium Phosphate 6 mg 07/21/20 09:00 07/22/20 09:08 Dexamethasone Sod Phosphate 4 Mg/Ml Vial IVPUSH 6 mg DAILY ABBY Administration Docusate Sodium 100 mg 07/21/20 09:00 07/22/20 09:17 Docusate Sodium 100 Mg Capsule PO Not Given DAILY ABBY Folic Acid 1 mg 07/21/20 09:00 07/22/20 09:10 Folic Acid 1 Mg Tablet PO 1 mg DAILY ABBY Administration Furosemide 40 mg 07/21/20 08:00 07/22/20 09:10 Furosemide 40 Mg Tablet PO 40 mg DAILY@0800 ABBY Administration Protocol Lactulose 30 gm 07/21/20 09:00 07/22/20 09:08 Lactulose 20 Gm/30 Ml Solution PO 30 gm TID ABBY Administration Magnesium Oxide 400 mg 07/21/20 09:00 07/22/20 09:10 Magnesium Oxide 400 Mg Tablet PO 400 mg DAILY ABBY Administration Medication 1 each 07/21/20 09:00 No Benzodiazepines MISCELLANE DAILY ON LICENSE OF [facility] Protocol Multivitamins/Vitamin C 1 tab 07/21/20 09:00 07/22/20 09:09 Multivitamin Tablet PO 1 tab DAILY ABBY Administration Omeprazole 20 mg 07/21/20 00:42 07/22/20 09:09 Omeprazole 20 Mg Capsule. PO 20 mg BID ABBY Administration Ondansetron HCl 4 mg 07/21/20 00:42 Ondansetron Hcl 4 Mg/2 Ml Vial IVPUSH Q8H PRN Nausea and Vomiting Pharmacy Consult 1 each 07/20/20 20:32 Consult Rx Perform Med Rec MISCELLANE ONCE PRN Consult order Phenobarbital 30 mg 07/21/20 21:00 07/22/20 09:09 Phenobarbital 30 Mg Tablet PO 07/23/20 09:01 30 mg BID ABBY Administration Phenobarbital 15 mg 07/23/20 21:00 Phenobarbital 15 Mg Tablet PO 07/25/20 09:01 BID ABBY Phenobarbital 15 mg 07/25/20 21:00 Phenobarbital 15 Mg Tablet PO 07/26/20 21:01 BEDTIME ABBY Rifaximin 550 mg 07/21/20 09:00 07/22/20 09:09 Rifaximin 550 Mg Tablet PO 550 mg BID ABBY Administration Sertraline HCl 50 mg 07/21/20 09:00 07/22/20 09:09 Sertraline Hcl 50 Mg Tablet PO 50 mg DAILY ABBY Administration Sodium Chloride 3 ml 07/21/20 00:42 07/22/20 09:17 0.9 % Sodium Chloride Flush 3 Ml Syringe IVFLUSH 3 ml QSHIFT ABBY Administration Spironolactone 100 mg 07/21/20 09:00 07/22/20 09:10 Spironolactone 25 Mg Tablet PO 100 mg DAILY ABBY Administration Protocol Thiamine HCl 100 mg 07/21/20 09:00 07/22/20 09:09 Thiamine Hcl 100 Mg Tablet PO 100 mg DAILY ABBY Administration Trazodone HCl 50 mg 07/21/20 00:42 07/21/20 20:11 Trazodone Hcl 50 Mg Tablet PO 50 mg BEDTIME ABBY Administration Labs CBC & Chem 7: 07/22/20 05:42 07/22/20 05:42 Microbiology Microbiology Results: Microbiology 07/20/20 20:54 Blood - Venous Blood Culture - Preliminary No growth after 24 hours. 07/20/20 20:54 Blood - Venous Blood Culture - Preliminary No growth after 24 hours. Assessment and Plan (1) Pneumonia due to COVID-19 virus: Status: Acute (2) Transaminitis: Status: Acute (3) Acute respiratory failure with hypoxia: Status: Acute Assessment and Plan: This is a 54-year-old female with history of chronic hepatitis C, alcohol related liver cirrhosis with ascites, pancytopenia, IgG monoclonal gammopathy, COPD, substance abuse who presented to the emergency department with shortness of breath found to have acute hypoxic respiratory failure/COVID-19 Acute respiratory failure with hypoxia Pneumonia secondary to COVID-19 Viral sepsis -IV dexamethasone started 07/21 -supplemental oxygen as needed -supportive care abdominal ascites secondary to liver cirrhosis s/p therapeutic paracentesis 07/21 with 2.7L removed, but abdomen still distended this am - will consult IR for possible repeat paracentesis - continue furosemide, rifaximin, and spironolactone thrombocytopenia chronic. trending down, but stable today r/t underlying liver cirrhosis -s/p platelet transfusion 07/21 -follow CBC Anemia chronic but trending down -check stool occult -follow cbc transaminitis secondary to liver cirrhosis. at baseline - follow LFTs elevated ammonia ammonia level 105 but no encephalopathy -continue lactulose started on admission -continue xifaxan alcohol abuse with potential for withdrawal drink 3 x 24 oz beers daily - continue phenobarb protocol - thiamine and folic acid supplement coagulopathy - has elevated INR - most likely secondary to liver disease - will monitor for any acute bleed polysubstance abuse -continue suboxone elevated lactic acid on admission likely r/t to liver dz, not r/t sepsis hyponatremia NA 134 today r/t underlying liver dz -follow BMP mood -continue sertraline dvt ppx - mechanical devices attending: Dr. Marley
[2020-07-22] MEDS: traZODone HCL 50 MG TABLET PO (20:26)
[2020-07-23] VITALS (9 sets, daily range): BP systolic 126–169; BP diastolic 68–92; PULSE 60–95; RESP 18–20; TEMP 36.1–36.9; O2SAT 90–99
[2020-07-23] MEDS: 0.9 % Sodium Chloride Flush 3 ML SYRINGE IVFLUSH ×4 (00:18→20:51)
[2020-07-23] MEDS: Benzonatate 100 MG CAPSULE PO ×3 (01:03→20:10)
[2020-07-23 06:10] LABS: Hemoglobin 8.2 g/dl (12.0-16.0)
[2020-07-23 06:11] LABS: Hematocrit 25.8 % (37-47); Mean Corpuscular HGB Conc 31.8 g/dl (31.0-35.0); Mean Corpuscular Hemoglobin 30.5 pg (27.0-33.0); Mean Corpuscular Volume 95.9 fL (80-98); Red Blood Count 2.69 X10*6/uL (4.20-5.50); Red Cell Distribution Width 26.7 % (11.0-16.0); White Blood Count 11.5 X10*3/uL (4.8-10.8)
[2020-07-23 06:24] LABS: PLT ABN DIST 1; Platelet Count 36 X10*3/uL (160-400)
[2020-07-23 06:36] LABS: Anion Gap 8 (12-20); Blood Urea Nitrogen 37 mg/dL (9-16); Calcium 7.2 mg/dL (8.4-10.2); Carbon Dioxide 24 mmol/L (22-29); Chloride 105 mmol/L (96-108); Creatinine Clr Calc Pharmacy 43.7; Estimated Glomerular Filt Rate 51; Glucose Fasting 105 mg/dL (60-99); Potassium 3.8 mmol/L (3.3-5.1); Sodium 133 mmol/L (135-145)
[2020-07-23] MEDS: Lactulose 20 GM/30 ML SOLUTION 30 GM PO ×3 (08:15→20:10)
[2020-07-23] MEDS: Spironolactone 25 MG TABLET 100 MG PO (08:17)
[2020-07-23] MEDS: Multivitamin TABLET 1 TAB PO (08:17)
[2020-07-23] MEDS: Buprenorphine/Naloxone 8/2 mg FILM 1 FILM BUCCAL (08:17)
[2020-07-23] MEDS: Magnesium Oxide 400 MG TABLET PO (08:17)
[2020-07-23] MEDS: PHENobarbitaL 30 MG TABLET PO (08:18)
[2020-07-23] MEDS: Folic Acid 1 MG TABLET PO (08:18)
[2020-07-23] MEDS: Furosemide 40 MG TABLET PO (08:18)
[2020-07-23] MEDS: Thiamine HCL 100 MG TABLET PO (08:18)
[2020-07-23] MEDS: Omeprazole 20 MG CAPSULE.DR PO ×2 (08:18→20:09)
[2020-07-23] MEDS: dexAMETHasone sod phosphate 4 MG/ML VIAL 6 MG IVPUSH (08:18)
[2020-07-23] MEDS: rifAXIMin 550 MG TABLET PO ×2 (08:18→20:10)
[2020-07-23] MEDS: Sertraline HCL 50 MG TABLET PO (08:18)
--- NOTE | 2020-07-23 13:43 | P.CNID_ITS ---
History of Present Illness Data of Consult Service Date: 07/23/20 Requesting physician: Alex Marley Primary Care Provider: Unknown Physician HPI Reason for consult: COVID She presents to hospital with lower abdominal pain ,6/10 to back She has no fever or chills or cough. She has had symptoms for four days. She has chronic liver disease and increased LFTs She is COVID positive Review of Systems Review of Systems: Yes all other systems are reviewed and are negative PMFSH Past Medical History Medical History Alcohol abuse Anxiety COPD (chronic obstructive pulmonary disease) 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) Elevated rheumatoid factor Hand paresthesia Hepatitis C Hepatomegaly History of abdominal paracentesis Microhematuria Panic attacks Polysubstance abuse Family History Family History Father Family history of high blood pressure Mother Alive and well Family history: reviewed and not pertinent Surgical History Surgical History History of delivery History of esophagogastroduodenoscopy (EGD) (~02/2017) Social History Social History Household Members: Children Housing: Apartment Do you presently have visiting nurse or other home services: No Alcohol intake: current Alcohol intake frequency: 3 or more drinks per day Alcohol type: beer Smoking Status: Current every day smoker Tobacco Type: Cigarette Cigarettes Per Day: 3 Smoked in Last 30 Days: Yes Patient Interested in Nicotine Replacement: No Second Hand Smoke Exposure: No Use of substances other than those prescribed or required for medical reasons: Yes Currently Displaying Signs/Symptoms of Drug Intoxication Withdrawal: No Have you been hit, kicked, punched, or otherwise hurt by someone within the past year? If so, by whom?: No Do you feel safe in your current relationship?: No Current Relationship Is there a partner from a previous relationship who is making you feel unsafe now?: No Are you made to feel afraid or neglected: No Advance Directives: No Advance Directives Information Provided: No Do you have thoughts of harming others: None Do you have a plan to hurt others: No Plan Recently lost weight without trying: No Nutrition Risks: No Nutritional Risk Patient : No : No Poor oral hygiene: No service: No Current occupational status: unemployed Meds Allergies Allergy/AdvReac Type Severity Reaction Status Date / Time No Known Allergies Allergy Verified 03/18/20 10:14 Active Medications: Current Medications Generic Name Dose Route Start Last Admin Trade Name Freq PRN Reason Stop Dose Admin Acetaminophen 650 mg 07/21/20 00:42 Acetaminophen 325 Mg Tablet PO Q6H PRN Pain, Mild (Pain Scale 1-3) Albuterol Sulfate 2 puff 07/23/20 00:45 Albuterol Sulfate 90 Mcg 8 Gm Inhaler INHALE RQ4H PRN Shortness of Breath/Wheezing Albuterol/Ipratropium 3 ml 07/21/20 01:40 Albuterol/Iprat 2.5/0.5mg 3 Ml Ampul.Neb INHALE Q4H PRN Shortness Of Breath Benzonatate 100 mg 07/23/20 00:45 07/23/20 08:53 Benzonatate 100 Mg Capsule PO 100 mg TID PRN Administration Cough Buprenorphine/Naloxone 1 film 07/21/20 09:00 07/23/20 08:17 Buprenorphine/Naloxone 8/2 Mg Film BUCCAL 1 film DAILY ABBY Administration Dexamethasone Sodium Phosphate 6 mg 07/21/20 09:00 07/23/20 08:18 Dexamethasone Sod Phosphate 4 Mg/Ml Vial IVPUSH 6 mg DAILY ABBY Administration Docusate Sodium 100 mg 07/21/20 09:00 07/23/20 08:19 Docusate Sodium 100 Mg Capsule PO Not Given DAILY ABBY Folic Acid 1 mg 07/21/20 09:00 07/23/20 08:18 Folic Acid 1 Mg Tablet PO 1 mg DAILY ABBY Administration Furosemide 40 mg 07/21/20 08:00 07/23/20 08:18 Furosemide 40 Mg Tablet PO 40 mg DAILY@0800 ABBY Administration Protocol Lactulose 30 gm 07/21/20 09:00 07/23/20 08:15 Lactulose 20 Gm/30 Ml Solution PO 30 gm TID ABBY Administration Magnesium Oxide 400 mg 07/21/20 09:00 07/23/20 08:17 Magnesium Oxide 400 Mg Tablet PO 400 mg DAILY ABBY Administration Medication 1 each 07/21/20 09:00 No Benzodiazepines MISCELLANE DAILY [facility] Protocol Multivitamins/Vitamin C 1 tab 07/21/20 09:00 07/23/20 08:17 Multivitamin Tablet PO 1 tab DAILY ABBY Administration Omeprazole 20 mg 07/21/20 00:42 07/23/20 08:18 Omeprazole 20 Mg Capsule.Dr PO 20 mg BID ABBY Administration Ondansetron HCl 4 mg 07/21/20 00:42 Ondansetron Hcl 4 Mg/2 Ml Vial IVPUSH Q8H PRN Nausea and Vomiting Pharmacy Consult 1 each 07/20/20 20:32 Consult Rx Perform Med Rec MISCELLANE ONCE PRN Consult order Phenobarbital 15 mg 07/23/20 21:00 Phenobarbital 15 Mg Tablet PO 07/25/20 09:01 BID ABBY Phenobarbital 15 mg 07/25/20 21:00 Phenobarbital 15 Mg Tablet PO 07/26/20 21:01 BEDTIME ABBY Rifaximin 550 mg 07/21/20 09:00 07/23/20 08:18 Rifaximin 550 Mg Tablet PO 550 mg BID ABBY Administration Sertraline HCl 50 mg 07/21/20 09:00 07/23/20 08:18 Sertraline Hcl 50 Mg Tablet PO 50 mg DAILY ABBY Administration Sodium Chloride 3 ml 07/21/20 00:42 07/23/20 08:18 0.9 % Sodium Chloride Flush 3 Ml Syringe IVFLUSH 3 ml QSHIFT ABBY Administration Spironolactone 100 mg 07/21/20 09:00 07/23/20 08:17 Spironolactone 25 Mg Tablet PO 100 mg DAILY ABBY Administration Protocol Thiamine HCl 100 mg 07/21/20 09:00 07/23/20 08:18 Thiamine Hcl 100 Mg Tablet PO 100 mg DAILY ABBY Administration Trazodone HCl 50 mg 07/21/20 00:42 07/22/20 20:26 Trazodone Hcl 50 Mg Tablet PO 50 mg BEDTIME ABBY Administration Home Medications Medication Instructions Recorded Confirmed Last Taken Type buprenorphine-naloxone [Suboxone] 1 film BUCCAL DAILY 02/24/20 07/20/20 Unknown History furosemide 40 mg PO DAILY 02/24/20 07/20/20 Unknown History multivitamin 1 tab PO DAILY 02/24/20 07/20/20 Unknown History omeprazole 20 mg PO BID 02/24/20 07/20/20 Unknown History sertraline 50 mg PO DAILY 02/24/20 07/20/20 Unknown History spironolactone 100 mg PO DAILY 02/24/20 07/20/20 Unknown History trazodone 50 mg PO BEDTIME 02/24/20 07/20/20 Unknown History docusate sodium [DOK] 100 mg PO DAILY 07/20/20 07/20/20 Unknown History ipratropium-albuterol [Combivent 1 puff INHALATION Q4H PRN 07/20/20 07/20/20 Unknown History Respimat] Physical Exam 2 Vital Signs: Vital Signs: Last Vital Signs Temp 96.9 F 07/23/20 11:00 Pulse 94 07/23/20 11:00 Resp 20 07/23/20 11:00 BP 126/89 07/23/20 12:52 Pulse Ox 92 07/23/20 12:52 Oxygen Flow Rate 2 07/20/20 19:57 Body Mass Index 24.2 Const: General: ill appearing Orientation/consciousness: patient oriented x3 HENMT: Head: Yes normal to inspection Mouth: Normal oral and palatal mucosa present Resp: Effort & Inspection: normal respiratory effort Cardio: Rate: regular rate Rhythm: regular rhythm GI: Other: appears chronically distended Skin: General skin exam: no rashes or lesions noted Neuro: General: patient oriented x3 Results Labs CBC & Chem 7: 07/23/20 05:40 07/23/20 05:40 Labs: Short CBC 07/23/20 Range/Units 05:40 WBC 11.5 H (4.8-10.8) X10*3/uL Hgb 8.2 L (12.0-16.0) g/dl Hct 25.8 L (37-47) % Plt Count 36 L (160-400) X10*3/uL BMP 07/23/20 05:40 Sodium 133 L Potassium 3.8 Chloride 105 Carbon Dioxide 24 BUN 37 H Creatinine 1.12 Calcium 7.2 L Microbiology Microbiology Results: Microbiology 07/20/20 20:54 Blood - Venous Blood Culture - Preliminary No growth after 48 hours. 07/20/20 20:54 Blood - Venous Blood Culture - Preliminary No growth after 48 hours. Assessment and Plan (1) Pneumonia due to COVID-19 virus: Problem details: She has LFTs over five times normal Status: Acute Would hold Remdesivir due to no good studies with renal failure. Would continue steroids and oxygen Would consider rx with Ceftriaxone for SBP if abdominal pain persists (2) Alcohol abuse with withdrawal: Status: Acute (3) Transaminitis: Status: Acute
--- NOTE | 2020-07-23 15:26 | HO.PM.IMPN ---
Subjective Subjective Date of Service: 07/23/20 Interval History: seen in follow up for covid 19, ascites still with dry cough, no shortness of breath Maintaining oxygen saturation off supplemental O2 Mild abdominal distension Review of Systems Constitutional : No Weight loss, No Fever, No Chills ENT/Mouth : No sore throat, No Rhinorrhea Eyes: No Eye Pain, No Swelling Cardiovascular : No Chest Pain, no palpitations Respiratory : + Cough, No Sputum, ++shortness of breath Gastrointestinal : no Nausea, No Vomiting, No Diarrhea, No abdominal Pain, no black stools Genitourinary : No Dysuria, No Urinary Frequency Musculoskeletal : No joint pain, No Myalgias, No Joint Swelling Skin : No Skin Lesions, No rash Neuro : No Weakness, No Numbness, No Dizziness, No Headache Psych : No Anxiety/Panic, No Depression Heme/Lymph: No Bruising, No Lymphadenopathy Endocrine : No Polyuria, No Polydipsia All other systems reviewed and are negative Review of Systems: Yes all other systems are reviewed and are negative Constitutional Constitutional: Denies chills and Denies fever(s) Cardiovascular Cardiovascular: Denies chest pain Respiratory Respiratory: Reports cough Gastrointestinal Gastrointestinal: Denies abdominal pain Physical Exam Vital Signs: Vital Signs: Last Vital Signs Temp 96.9 F 07/23/20 11:00 Pulse 94 07/23/20 11:00 Resp 20 07/23/20 11:00 BP 126/89 07/23/20 12:52 Pulse Ox 92 07/23/20 12:52 Oxygen Flow Rate 2 07/20/20 19:57 Body Mass Index 24.2 Const: General: comfortable, no acute distress, alert and awake Nutritional Appearance: thin HENMT: Head: Yes normocephalic and Yes atraumatic Eyes: Sclerae: sclerae normal Chest: Chest palpation & inspection: normal inspection of the chest Resp: Effort & Inspection: normal respiratory effort and no respiratory distress Cardio: Rate: regular rate Rhythm: regular rhythm GI: Other: softly distended Palpation (GI): nontender and Ascites present Neuro: Cranial nerves: Yes CN's II-XII intact bilaterally and Yes Bilaterally intact EOM present Extrem: General: Yes normal to inspection Objective Data Current Medications Generic Name Dose Route Start Last Admin Trade Name Freq PRN Reason Stop Dose Admin Acetaminophen 650 mg 07/21/20 00:42 Acetaminophen 325 Mg Tablet PO Q6H PRN Pain, Mild (Pain Scale 1-3) Albuterol Sulfate 2 puff 07/23/20 00:45 Albuterol Sulfate 90 Mcg 8 Gm Inhaler INHALE RQ4H PRN Shortness of Breath/Wheezing Albuterol/Ipratropium 3 ml 07/21/20 01:40 Albuterol/Iprat 2.5/0.5mg 3 Ml Ampul.Neb INHALE Q4H PRN Shortness Of Breath Benzonatate 100 mg 07/23/20 00:45 07/23/20 08:53 Benzonatate 100 Mg Capsule PO 100 mg TID PRN Administration Cough Buprenorphine/Naloxone 1 film 07/21/20 09:00 07/23/20 08:17 Buprenorphine/Naloxone 8/2 Mg Film BUCCAL 1 film DAILY ABBY Administration Dexamethasone Sodium Phosphate 6 mg 07/21/20 09:00 07/23/20 08:18 Dexamethasone Sod Phosphate 4 Mg/Ml Vial IVPUSH 6 mg DAILY ABBY Administration Docusate Sodium 100 mg 07/21/20 09:00 07/23/20 08:19 Docusate Sodium 100 Mg Capsule PO Not Given DAILY ABBY Folic Acid 1 mg 07/21/20 09:00 07/23/20 08:18 Folic Acid 1 Mg Tablet PO 1 mg DAILY ABBY Administration Furosemide 40 mg 07/21/20 08:00 07/23/20 08:18 Furosemide 40 Mg Tablet PO 40 mg DAILY@0800 ABBY Administration Protocol Lactulose 30 gm 07/21/20 09:00 07/23/20 14:36 Lactulose 20 Gm/30 Ml Solution PO 30 gm TID ABBY Administration Magnesium Oxide 400 mg 07/21/20 09:00 07/23/20 08:17 Magnesium Oxide 400 Mg Tablet PO 400 mg DAILY ABBY Administration Medication 1 each 07/21/20 09:00 No Benzodiazepines MISCELLANE DAILY [facility] Protocol Multivitamins/Vitamin C 1 tab 07/21/20 09:00 07/23/20 08:17 Multivitamin Tablet PO 1 tab DAILY ABBY Administration Omeprazole 20 mg 07/21/20 00:42 07/23/20 08:18 Omeprazole 20 Mg Capsule.Dr PO 20 mg BID ABBY Administration Ondansetron HCl 4 mg 07/21/20 00:42 Ondansetron Hcl 4 Mg/2 Ml Vial IVPUSH Q8H PRN Nausea and Vomiting Pharmacy Consult 1 each 07/20/20 20:32 Consult Rx Perform Med Rec MISCELLANE ONCE PRN Consult order Phenobarbital 15 mg 07/23/20 21:00 Phenobarbital 15 Mg Tablet PO 07/25/20 09:01 BID ABBY Phenobarbital 15 mg 07/25/20 21:00 Phenobarbital 15 Mg Tablet PO 07/26/20 21:01 BEDTIME ABBY Rifaximin 550 mg 07/21/20 09:00 07/23/20 08:18 Rifaximin 550 Mg Tablet PO 550 mg BID ABBY Administration Sertraline HCl 50 mg 07/21/20 09:00 07/23/20 08:18 Sertraline Hcl 50 Mg Tablet PO 50 mg DAILY ABBY Administration Sodium Chloride 3 ml 07/21/20 00:42 07/23/20 08:18 0.9 % Sodium Chloride Flush 3 Ml Syringe IVFLUSH 3 ml QSHIFT ABBY Administration Spironolactone 100 mg 07/21/20 09:00 07/23/20 08:17 Spironolactone 25 Mg Tablet PO 100 mg DAILY ABBY Administration Protocol Thiamine HCl 100 mg 07/21/20 09:00 07/23/20 08:18 Thiamine Hcl 100 Mg Tablet PO 100 mg DAILY ABBY Administration Trazodone HCl 50 mg 07/21/20 00:42 07/22/20 20:26 Trazodone Hcl 50 Mg Tablet PO 50 mg BEDTIME ABBY Administration Labs CBC & Chem 7: 07/23/20 05:40 07/23/20 05:40 Microbiology Microbiology Results: Microbiology 07/20/20 20:54 Blood - Venous Blood Culture - Preliminary No growth after 48 hours. 07/20/20 20:54 Blood - Venous Blood Culture - Preliminary No growth after 48 hours. Assessment and Plan (1) Pneumonia due to COVID-19 virus: Status: Acute (2) Alcohol abuse with withdrawal: Status: Acute (3) Transaminitis: Status: Acute (4) Acute respiratory failure with hypoxia: Status: Acute Assessment and Plan: This is a 54-year-old female with history of chronic hepatitis C, alcohol related liver cirrhosis with ascites, pancytopenia, IgG monoclonal gammopathy, COPD, substance abuse who presented to the emergency department with shortness of breath found to have acute hypoxic respiratory failure/COVID-19 Acute respiratory failure with hypoxia Pneumonia secondary to COVID-19 Viral sepsis -IV dexamethasone started 5/5 -supplemental oxygen as needed, currently off oxygen -supportive care abdominal ascites secondary to liver cirrhosis s/p therapeutic paracentesis 07/21 with 2.7L removed, abdomen still distended this am Abdominal US showed no significant fluid for repeat paracentesis - continue furosemide, rifaximin, and spironolactone thrombocytopenia chronic. stable r/t underlying liver cirrhosis -s/p platelet transfusion 07/21 -follow CBC Anemia chronic but trending down -check stool occult -follow cbc transaminitis secondary to liver cirrhosis. at baseline - follow LFTs hyperammonemia ammonia level 105 but no encephalopathy -continue lactulose -continue xifaxan alcohol abuse with potential for withdrawal drinks 3 x 24 oz beers daily. no evidence of active withdrawal - continue phenobarb protocol - thiamine and folic acid supplement coagulopathy - has elevated INR. most likely secondary to liver disease - vitamin K polysubstance abuse -continue suboxone elevated lactic acid on admission likely r/t to liver dz, not r/t sepsis hyponatremia, chronic NA 133 today r/t underlying liver dz -follow BMP mood -continue sertraline dvt ppx - mechanical devices attending: Dr. Marley
--- NOTE | 2020-07-23 16:24 | MHC.CM.PN ---
DP Female 54 DX covid DIsche to home no services family transport. LOS r/t Continues to require supplemental oxygen. CM will follow
[2020-07-23] MEDS: PHENobarbitaL 15 MG TABLET PO (20:09)
[2020-07-23] MEDS: traZODone HCL 50 MG TABLET PO (20:10)
[2020-07-24] VITALS (8 sets, daily range): BP systolic 149–175; BP diastolic 70–84; PULSE 84–101; RESP 18–20; TEMP 35.5–37.3; O2SAT 92–96
[2020-07-24 06:43] LABS: INTERNATIONAL NORM RATIO 1.9 (0.9-1.1); Prothrombin Time 23.2 SEC (10.8-13.0)
[2020-07-24 06:47] LABS: Hematocrit 27.4 % (37-47); Hemoglobin 8.8 g/dl (12.0-16.0); Mean Corpuscular HGB Conc 32.1 g/dl (31.0-35.0); Mean Corpuscular Hemoglobin 30.9 pg (27.0-33.0); Mean Corpuscular Volume 96.1 fL (80-98); NRBC Pct Auto 0.2 /100WBC (0.0-0.2); Red Blood Count 2.85 X10*6/uL (4.20-5.50); Red Cell Distribution Width 26.7 % (11.0-16.0); White Blood Count 9.9 X10*3/uL (4.8-10.8)
[2020-07-24 06:49] LABS: Platelet Count 41 X10*3/uL (160-400)
[2020-07-24 07:06] LABS: Alanine Aminotransferase 76 U/L (0-31); Alkaline Phosphatase 195 U/L (39-117); Anion Gap 10 (12-20); Aspartate Amino Transferase 206 U/L (5-31); Bilirubin Direct 1.9 mg/dL (0.0-0.5); Bilirubin Total 2.2 mg/dL (0.0-1.0); Blood Urea Nitrogen 41 mg/dL (9-16); Calcium 7.6 mg/dL (8.4-10.2); Carbon Dioxide 23 mmol/L (22-29); Chloride 101 mmol/L (96-108); Creatinine Clr Calc Pharmacy 33.3; Estimated Glomerular Filt Rate 37; Glucose Random 155 mg/dL (60-115); Potassium 3.8 mmol/L (3.3-5.1); Sodium 130 mmol/L (135-145); Total Protein 7.3 g/dL (6.5-8.0)
[2020-07-24] MEDS: Thiamine HCL 100 MG TABLET PO (09:17)
[2020-07-24] MEDS: Magnesium Oxide 400 MG TABLET PO (09:17)
[2020-07-24] MEDS: Folic Acid 1 MG TABLET PO (09:17)
[2020-07-24] MEDS: Multivitamin TABLET 1 TAB PO (09:17)
[2020-07-24] MEDS: Sertraline HCL 50 MG TABLET PO (09:17)
[2020-07-24] MEDS: Furosemide 40 MG TABLET PO (09:18)
[2020-07-24] MEDS: Spironolactone 25 MG TABLET 100 MG PO (09:18)
[2020-07-24] MEDS: rifAXIMin 550 MG TABLET PO ×2 (09:18→20:36)
[2020-07-24] MEDS: Omeprazole 20 MG CAPSULE.DR PO ×2 (09:18→20:36)
[2020-07-24] MEDS: Buprenorphine/Naloxone 8/2 mg FILM 1 FILM BUCCAL (09:18)
[2020-07-24] MEDS: dexAMETHasone sod phosphate 4 MG/ML VIAL 6 MG IVPUSH (09:18)
[2020-07-24] MEDS: PHENobarbitaL 15 MG TABLET PO ×2 (09:18→20:37)
[2020-07-24] MEDS: 0.9 % Sodium Chloride Flush 3 ML SYRINGE IVFLUSH ×3 (09:18→20:38)
[2020-07-24] MEDS: Lactulose 20 GM/30 ML SOLUTION 30 GM PO (09:18)
--- NOTE | 2020-07-24 11:42 | HO.PM.IMPN ---
Subjective Subjective Date of Service: 07/24/20 <MIRYAM Kauffman - Last Filed: 07/24/20 12:06> 07/24/20 <Chente Lane MD - Last Filed: 07/24/20 21:01> Interval History: follow up for ascites, covid 19 ongoing abdominal distention multiple BM cough, no sob, off o2 since yesterday <MIRYAM Kauffman - Last Filed: 07/24/20 12:06> Review of Systems Review of Systems: Yes all other systems are reviewed and are negative <MIRYAM Kauffman - Last Filed: 07/24/20 12:06> Constitutional Constitutional: Denies chills and Denies fever(s) <MIRYAM Kauffman - Last Filed: 07/24/20 12:06> Cardiovascular Cardiovascular: Denies chest pain <MIRYAM Kauffman - Last Filed: 07/24/20 12:06> Gastrointestinal Gastrointestinal: Reports loose stools, Denies nausea and Denies vomiting <MIRYAM Kauffman - Last Filed: 07/24/20 12:06> Physical Exam Vital Signs: Vital Signs: Last Vital Signs Temp 96 F L 07/24/20 11:18 Pulse 101 H 07/24/20 11:18 Resp 20 07/24/20 11:18 BP 170/84 H 07/24/20 11:18 Pulse Ox 95 07/24/20 11:18 Oxygen Flow Rate 2 07/20/20 19:57 Body Mass Index 24.2 <MIRYAM Kauffman - Last Filed: 07/24/20 12:06> Const: General: comfortable, no acute distress, alert and awake <MIRYAM Kauffman - Last Filed: 07/24/20 12:06> Nutritional Appearance: thin <MIRYAM Kauffman Last Filed: 07/24/20 12:06> HENMT: Head: Yes normocephalic and Yes atraumatic <MIRYAM Kauffman Last Filed: 07/24/20 12:06> Eyes: Sclerae: sclerae normal <MIRYAM Kauffman Last Filed: 07/24/20 12:06> Chest: Chest palpation & inspection: normal inspection of the chest <MIRYAM Kauffman Last Filed: 07/24/20 12:06> Resp: Effort & Inspection: normal respiratory effort and no respiratory distress <MIRYAM Kauffman Last Filed: 07/24/20 12:06> Cardio: Rate: regular rate <MIRYAM Kauffman Last Filed: 07/24/20 12:06> Rhythm: regular rhythm <MIRYAM Kauffman Last Filed: 07/24/20 12:06> GI: Other: softly distended <MIRYAM Kauffman Last Filed: 07/24/20 12:06> Palpation (GI): nontender and Ascites present <MIRYAM Kauffman Last Filed: 07/24/20 12:06> Neuro: Cranial nerves: Yes CN's II-XII intact bilaterally and Yes Bilaterally intact EOM present <MIRYAM Kauffman Last Filed: 07/24/20 12:06> Extrem: General: Yes normal to inspection <MIRYAM Kauffman Last Filed: 07/24/20 12:06> Objective Data Current Medications Generic Name Dose Route Start Last Admin Trade Name Freq PRN Reason Stop Dose Admin Acetaminophen 650 mg 07/21/20 00:42 Acetaminophen 325 Mg Tablet PO Q6H PRN Pain, Mild (Pain Scale 1-3) Albuterol Sulfate 2 puff 07/23/20 00:45 Albuterol Sulfate 90 Mcg 8 Gm Inhaler INHALE RQ4H PRN Shortness of Breath/Wheezing Albuterol/Ipratropium 3 ml 07/21/20 01:40 Albuterol/Iprat 2.5/0.5mg 3 Ml Ampul.Neb INHALE Q4H PRN Shortness Of Breath Benzonatate 100 mg 07/23/20 00:45 07/23/20 20:10 Benzonatate 100 Mg Capsule PO 100 mg TID PRN Administration Cough Buprenorphine/Naloxone 1 film 07/21/20 09:00 07/24/20 09:18 Buprenorphine/Naloxone 8/2 Mg Film BUCCAL 1 film DAILY ABBY Administration Dexamethasone Sodium Phosphate 6 mg 07/21/20 09:00 07/24/20 09:18 Dexamethasone Sod Phosphate 4 Mg/Ml Vial IVPUSH 6 mg DAILY ABBY Administration Docusate Sodium 100 mg 07/21/20 09:00 07/24/20 09:18 Docusate Sodium 100 Mg Capsule PO Not Given DAILY ABBY Folic Acid 1 mg 07/21/20 09:00 07/24/20 09:17 Folic Acid 1 Mg Tablet PO 1 mg DAILY ABBY Administration Furosemide 40 mg 07/21/20 08:00 07/24/20 09:18 Furosemide 40 Mg Tablet PO 40 mg DAILY@0800 ABBY Administration Protocol Lactulose 20 gm 07/24/20 21:00 Lactulose 20 Gm/30 Ml Solution PO BID ABBY Magnesium Oxide 400 mg 07/21/20 09:00 07/24/20 09:17 Magnesium Oxide 400 Mg Tablet PO 400 mg DAILY ABBY Administration Medication 1 each 07/21/20 09:00 No Benzodiazepines MISCELLANE DAILY [facility] Protocol Multivitamins/Vitamin C 1 tab 07/21/20 09:00 07/24/20 09:17 Multivitamin Tablet PO 1 tab DAILY ABBY Administration Omeprazole 20 mg 07/21/20 00:42 07/24/20 09:18 Omeprazole 20 Mg Capsule.Dr PO 20 mg BID [facility] Administration Ondansetron HCl 4 mg 07/21/20 00:42 Ondansetron Hcl 4 Mg/2 Ml Vial IVPUSH Q8H PRN Nausea and Vomiting Pharmacy Consult 1 each 07/20/20 20:32 Consult Rx Perform Med Rec MISCELLANE ONCE PRN Consult order Phenobarbital 15 mg 07/23/20 21:00 07/24/20 09:18 Phenobarbital 15 Mg Tablet PO 07/25/20 09:01 15 mg BID ABBY Administration Phenobarbital 15 mg 07/25/20 21:00 Phenobarbital 15 Mg Tablet PO 07/26/20 21:01 BEDTIME ABBY Rifaximin 550 mg 07/21/20 09:00 07/24/20 09:18 Rifaximin 550 Mg Tablet PO 550 mg BID ABBY Administration Sertraline HCl 50 mg 07/21/20 09:00 07/24/20 09:17 Sertraline Hcl 50 Mg Tablet PO 50 mg DAILY ABBY Administration Sodium Chloride 3 ml 07/21/20 00:42 07/24/20 09:18 0.9 % Sodium Chloride Flush 3 Ml Syringe IVFLUSH 3 ml QSHIFT [facility] Administration Spironolactone 100 mg 07/21/20 09:00 07/24/20 09:18 Spironolactone 25 Mg Tablet PO 100 mg DAILY ABBY Administration Protocol Thiamine HCl 100 mg 07/21/20 09:00 07/24/20 09:17 Thiamine Hcl 100 Mg Tablet PO 100 mg DAILY ABBY Administration Trazodone HCl 50 mg 07/21/20 00:42 07/23/20 20:10 Trazodone Hcl 50 Mg Tablet PO 50 mg BEDTIME ABBY Administration <MIRYAM Kauffman - Last Filed: 07/24/20 12:06> Labs CBC & Chem 7: : 07/24/20 05:53 07/24/20 05:53 <MIRYAM Kauffman - Last Filed: 07/24/20 12:06> Microbiology Microbiology Results: Microbiology 07/20/20 20:54 Blood - Venous Blood Culture - Preliminary No growth after 48 hours. 07/20/20 20:54 Blood - Venous Blood Culture - Preliminary No growth after 48 hours. <MIRYAM Kauffman - Last Filed: 07/24/20 12:06> Assessment and Plan (1) Pneumonia due to COVID-19 virus: Status: Acute <MIRYAM Kauffman - Last Filed: 07/24/20 12:06> (2) Alcohol abuse with withdrawal: Status: Acute <MIRYAM Kauffman - Last Filed: 07/24/20 12:06> (3) Transaminitis: Status: Acute <MIRYAM Kauffman - Last Filed: 07/24/20 12:06> (4) Acute respiratory failure with hypoxia: Status: Acute <MIRYAM Kauffman Last Filed: 07/24/20 12:06> Assessment and Plan: This is a 54-year-old female with history of chronic hepatitis C, alcohol related liver cirrhosis with ascites, pancytopenia, IgG monoclonal gammopathy, COPD, substance abuse who presented to the emergency department with shortness of breath found to have acute hypoxic respiratory failure/COVID-19 abdominal ascites secondary to liver cirrhosis s/p therapeutic paracentesis 07/21 with 2.7L removed, abdomen still distended this am Abdominal US 07/22 showed no significant fluid for repeat paracentesis but clinically appears to have ascities, will repeat US again -continue rifaximin -hold lasix and spironolactone for vladimir VLADIMIR Scr trending up, probably r/t diarrhea from lactulose -hold lasix, aldactone -follow bmp Acute respiratory failure with hypoxia Pneumonia secondary to COVID-19 Viral sepsis currently on room air -IV dexamethasone started 07/21 thrombocytopenia chronic. stable r/t underlying liver cirrhosis -s/p platelet transfusion 07/21 -follow CBC Anemia chronic. H/H stable -follow cbc transaminitis secondary to liver cirrhosis. at baseline - follow LFTs hyperammonemia no encephalopathy Multiple BM -will decrease dose of lactulose -continue xifaxan alcohol abuse with potential for withdrawal drinks 3 x 24 oz beers daily. no evidence of active withdrawal - continue phenobarb protocol - thiamine and folic acid supplement coagulopathy has elevated INR. Improved to 1.9 after vitamin k most likely secondary to liver disease polysubstance abuse -continue suboxone elevated lactic acid on admission likely r/t to liver dz, not r/t sepsis hyponatremia, chronic NA 130 today r/t underlying liver dz -follow BMP mood -continue sertraline dvt ppx - mechanical devices attending: Dr. Lane <MIRYAM Kauffman - Last Filed: 07/24/20 12:06>
[2020-07-24] MEDS: oxyCODONE HCl Immed Release 5 MG TABLET PO (12:24)
[2020-07-24] MEDS: Lidocaine HCl 1 % MPF 5 ML VIAL SUBCUT (13:42)
[2020-07-24 16:00] LABS: MN% 78.3 %; PMN% 21.7 %; WBC Peritoneal Fluid 0.062 X10*3/uL
[2020-07-24 16:07] LABS: RBC Peritoneal Fluid < 0.002 X10*6/uL
[2020-07-24 16:26] LABS: BF Shift QC OK YES; Lymphocyte Peritoneal Fl 8 %; Man Diluent Bkgrd OK YES; Monocytes Peritoneal Fl 70 %; Neutrophils Peritoneal Fluid 22 %
[2020-07-24] MEDS: Benzonatate 100 MG CAPSULE PO (20:37)
[2020-07-24] MEDS: traZODone HCL 50 MG TABLET PO (20:37)
[2020-07-24] MEDS: Lactulose 20 GM/30 ML SOLUTION PO (20:37)
[2020-07-24] MEDS: Acetaminophen 325 MG TABLET 650 MG PO (23:40)
[2020-07-25 00:19] VITALS: BP 121/73; PULSE 96; RESP 18; TEMP 36.8; O2SAT 94
[2020-07-25 03:47] VITALS: BP 138/77; PULSE 93; RESP 18; TEMP 36.8; O2SAT 92
[2020-07-25 05:49] LABS: Anion Gap 10 (12-20); Blood Urea Nitrogen 37 mg/dL (9-16); Calcium 7.4 mg/dL (8.4-10.2); Carbon Dioxide 21 mmol/L (22-29); Chloride 99 mmol/L (96-108); Creatinine Clr Calc Pharmacy 37.9; Estimated Glomerular Filt Rate 43; Glucose Random 115 mg/dL (60-115); Potassium 3.3 mmol/L (3.3-5.1); Sodium 127 mmol/L (135-145)
[2020-07-25 07:10] VITALS: BP 132/71; PULSE 81; RESP 20; TEMP 36.4; O2SAT 92
[2020-07-25] MEDS: 0.9 % Sodium Chloride Flush 3 ML SYRINGE IVFLUSH (07:53)
[2020-07-25] MEDS: Lactulose 20 GM/30 ML SOLUTION PO (07:54)
[2020-07-25] MEDS: Sertraline HCL 50 MG TABLET PO (07:54)
[2020-07-25] MEDS: PHENobarbitaL 15 MG TABLET PO (07:54)
[2020-07-25] MEDS: Multivitamin TABLET 1 TAB PO (07:55)
[2020-07-25] MEDS: Magnesium Oxide 400 MG TABLET PO (07:55)
[2020-07-25] MEDS: Thiamine HCL 100 MG TABLET PO (07:55)
[2020-07-25] MEDS: Omeprazole 20 MG CAPSULE.DR PO (07:55)
[2020-07-25] MEDS: rifAXIMin 550 MG TABLET PO (07:55)
[2020-07-25] MEDS: dexAMETHasone sod phosphate 4 MG/ML VIAL 6 MG IVPUSH (07:55)
[2020-07-25] MEDS: Folic Acid 1 MG TABLET PO (07:55)
[2020-07-25] MEDS: Buprenorphine/Naloxone 8/2 mg FILM 1 FILM BUCCAL (07:59)
--- NOTE | 2020-07-25 09:49 | P.DS_ITS ---
DS: Providers Provider Date of Service: 07/25/20 <MIRYAM Kauffman - Last Filed: 07/25/20 10:12> 07/25/20 <Chente Lane MD - Last Filed: 07/25/20 10:21> Date of admission: 07/20/20 23:28 <MIRYAM Kauffman - Last Filed: 07/25/20 10:12> Primary care physician: Unknown Physician <MIRYAM Kauffman - Last Filed: 07/25/20 10:12> Consults: 07/21/20 06:41 Consult to Infectious Diseases Routine Consulting Provider: Huyen Tripp Reason for consultation: COVID 19 PNA, remdesivir? Has provider been notified: No <MIRYAM Kauffman - Last Filed: 07/25/20 10:12> DS: Diagnosis Discharge Diagnosis (1) Acute respiratory failure with hypoxia: Status: Acute <MIRYAM Kauffman - Last Filed: 07/25/20 10:12> (2) Pneumonia due to COVID-19 virus: Status: Acute <MIRYAM Kauffman - Last Filed: 07/25/20 10:12> (3) Alcohol abuse with withdrawal: Status: Acute <MIRYAM Kauffman - Last Filed: 07/25/20 10:12> (4) Alcoholic cirrhosis of liver with ascites: Status: Acute <MIRYAM Kauffman - Last Filed: 07/25/20 10:12> (5) Coagulopathy: Status: Acute <MIRYAM Kauffman - Last Filed: 07/25/20 10:12> DS: Medications Discharge Medications Home Medications: Home Medications Medication Instructions Recorded Confirmed buprenorphine-naloxone [Suboxone] 1 film BUCCAL DAILY 02/24/20 07/20/20 furosemide 40 mg PO DAILY 02/24/20 07/20/20 multivitamin 1 tab PO DAILY 02/24/20 07/20/20 omeprazole 20 mg PO BID 02/24/20 07/20/20 sertraline 50 mg PO DAILY 02/24/20 07/20/20 spironolactone 100 mg PO DAILY 02/24/20 07/20/20 trazodone 50 mg PO BEDTIME 02/24/20 07/20/20 Combivent Respimat 1 puff INHALATION Q4H PRN 07/20/20 07/20/20 docusate sodium [DOK] 100 mg PO DAILY 07/20/20 07/20/20 Previous Rx's Medication Instructions Recorded magnesium oxide 400 mg PO DAILY 30 Days #30 tab 04/16/20 rifaximin 550 mg tablet 550 mg PO BID 30 Days #60 tab 06/14/20 dexamethasone 6 mg PO DAILY 6 Days #6 tab 07/25/20 lactulose 20 g PO BID 30 Days #1800 ml 07/25/20 <MIRYAM Kauffman - Last Filed: 07/25/20 10:12> DS: Summary Hospital Course Hospital Course: From H&P 54-year-old female with past medical history of alcoholic liver cirrhosis, ascites, hepatitis-C, COPD, alcohol abuse, anxiety, polysubstance abuse presents to the hospital complaints of shortness of breath for the past few days. Patient reports cough, sputum production, and some mild fever and chills. Patient reports that her with sick recently but was not confirmed COVID. Denies any chest pain, no abdominal pain although feels her abdomen is very tired from all the ascites, denies any nausea or vomiting, no diarrhea or constipation, although has some episodes of loss of bowel control, denies any urinary symptoms and no lower extremity edema. She denies any weakness numbness or tingling. On arrival to the ED patient noted to be 85% O2 on room air, currently on 2 L satting 92-94%. Other vital significant for BP of 129/79, heart rate of 113, respiratory rate of 24, temp of 98.4? Covid 19. patient was started on IV dexamethasone. She initially required supplemental oxygen but was able to be weaned off to room air. She has currently been on room air for the past 48 hours. She was seen in consultation by Infectious Diseases and did not qualify for remdesivir given improving oxygen requirement as well as baseline elevation in LFTs. She will be discharged home to complete 10 day course of dexamethasone. For alcohol abuse with potential for withdrawal she was started on phenobarbital protocol she showed no evidence of alcohol withdrawal. Alcoholic liver cirrhosis with ascites. Patient underwent therapeutic paracentesis on 07/21 with 2.7 L removed. Abdomen continued to feel distended th erefore she underwent repeat paracentesis on 07/24 with additional 3.5 L removed. There was no evidence of SBP. Anemia, thrombocytopenia and hyponatremia are chronic and related to underlying liver disease. LFTs were elevated but within the patient's baseline as well. Ammonia level was elevated and patient had some confusion with asterixis and she was started on lactulose. Her mentation improved and asterixis resolved. I saw and examined the patient and discussed the discharge plan with midlevel, she is feeling better after paracentesis yesterday, diarrhea is better, sodium is low 127 but is chronic and is advised not to drink to much water, otherwise I agree with discharge plan as outlined here She will be discharged home in stable condition. <MIRYAM Kauffman Last Filed: 07/25/20 10:12> Time Spent with Patient Time attestation: Total time spent providing and/or coordinating discharge services: <MIRYAM Kauffman Last Filed: 07/25/20 10:12> Discharge coordination time: Greater than 30 minutes <MIRYAM Kauffman Last Filed: 07/25/20 10:12> Physical Exam Vital Signs: Vital Signs: Last Vital Signs Temp 97.5 F 07/25/20 07:10 Pulse 81 07/25/20 07:10 Resp 20 07/25/20 07:10 BP 132/71 07/25/20 07:10 Pulse Ox 92 07/25/20 07:10 Oxygen Flow Rate 2 07/20/20 19:57 Body Mass Index 24.2 <MIRYAM Kauffman Last Filed: 07/25/20 10:12> Const: General: comfortable, no acute distress, alert and awake <MIRYAM Kauffman Last Filed: 07/25/20 10:12> Nutritional Appearance: thin <MIRYAM Kauffman Last Filed: 07/25/20 10:12> HENMT: Head: Yes normocephalic and Yes atraumatic <MIRYAM Kauffman Last Filed: 07/25/20 10:12> Eyes: Sclerae: sclerae normal <MIRYAM Kauffman Last Filed: 07/25/20 10:12> Chest: Chest palpation & inspection: normal inspection of the chest <MIRYAM Kauffman Last Filed: 07/25/20 10:12> Resp: Effort & Inspection: normal respiratory effort and no respiratory distress <MIRYAM Kauffman Last Filed: 07/25/20 10:12> Cardio: Rate: regular rate <MIRYAM Kauffman Last Filed: 07/25/20 10:12> Rhythm: regular rhythm <MIRYAM Kauffman Last Filed: 07/25/20 10:12> GI: Other: soft, non-tender <MIRYAM Kauffman Last Filed: 07/25/20 10:12> Neuro: Cranial nerves: Yes CN's II-XII intact bilaterally and Yes Bilaterally intact EOM present <MIRYAM Kauffman Last Filed: 07/25/20 10:12> Extrem: General: Yes normal to inspection <MIRYAM Kauffman Last Filed: 07/25/20 10:12> DS: Data Data Completed and Pending Labs on day of discharge: Laboratory Results - last 24 hr 07/24/20 07/25/20 15:10 04:56 Sodium 127 L Potassium 3.3 Chloride 99 Carbon Dioxide 21 L Anion Gap 10 L BUN 37 H Creatinine 1.29 Estim Creat Clear Calc 37.9 Estimated GFR 43 Random Glucose 115 Calcium 7.4 L Peritoneal WBC 0.062 Peritoneal RBC < 0.002 Periton Neutrophils 22 Periton Lymphocytes 8 Peritoneal Monocytes 70 Preliminary micro results at discharge 07/24/20 15:10 Routine Culture - Preliminary Abdominal Fluid No growth to date. Anaerobic Culture - Preliminary No growth to date. 07/20/20 20:54 Blood Culture - Preliminary Blood - Venous No growth after 48 hours. 07/20/20 20:54 Blood Culture - Preliminary Blood - Venous No growth after 48 hours. <MIRYAM Kauffman Last Filed: 07/25/20 10:12> Discharge Plan Discharge Patient Disposition: Home, Self-Care <MIRYAM Kauffman Last Filed: 07/25/20 10:12> Discharge Diagnosis: Pneumonia secondary to Covid 19 Anemia Thrombocytopenia Hyponatremia Liver cirrhosis with ascites <MIRYAM Kauffman Last Filed: 07/25/20 10:12> Pneumonia secondary to Covid 19 Anemia Thrombocytopenia Hyponatremia Liver cirrhosis with ascites <Chente Lane MD - Last Filed: 07/25/20 10:21> Referrals: Physician,Unknown [Primary Care Provider] - 1 Week <MIRYAM Kauffman - Last Filed: 07/25/20 10:12> Discharge Medications: New dexamethasone 6 mg tablet 6 mg PO DAILY 6 Days Qty: 6 RF: 0 lactulose 20 gram/30 mL solution 20 g PO BID 30 Days Qty: 1800 RF: 0 Continued magnesium oxide 400 mg magnesium tablet 400 mg PO DAILY 30 Days Qty: 30 RF: 3 Xifaxan 550 mg tablet 550 mg PO BID 30 Days Qty: 60 RF: 1 docusate sodium [DOK] 100 mg capsule 100 mg PO DAILY RF: 0 Combivent Respimat 20-100 mcg/actuation Mist 1 puff INHALATION Q4H PRN (Reason: Shortness Of Breath) RF: 0 multivitamin Tablet 1 tab PO DAILY RF: 0 trazodone 50 mg Tablet 50 mg PO BEDTIME RF: 0 omeprazole 20 mg Capsule,Delayed Release(Dr/Ec) 20 mg PO BID RF: 0 sertraline 50 mg Tablet 50 mg PO DAILY RF: 0 buprenorphine-naloxone [Suboxone] 8-2 mg Film 1 film BUCCAL DAILY RF: 0 furosemide 40 mg Tablet 40 mg PO DAILY RF: 0 spironolactone 25 mg Tablet 100 mg PO DAILY RF: 0 <MIRYAM Kauffman - Last Filed: 07/25/20 10:12> Discharge Orders: Discharge Order (Routine); Ordered 07/25/20 Ordered By: Zenaida Acosta <MIRYAM Kauffman - Last Filed: 07/25/20 10:12> Activity on Discharge: As tolerated <MIRYAM Kauffman - Last Filed: 07/25/20 10:12> As tolerated <Chente Lane MD - Last Filed: 07/25/20 10:21> Stand Alone Forms: Patient Portal Discharge page <MIRYAM Kauffman Last Filed: 07/25/20 10:12> Care Plan Goals: See below <MIRYAM Kauffman - Last Filed: 07/25/20 10:12> Health Concerns: COVID 19 Alcohol Use Disorder Liver cirrhosis with ascites Hepatic encephalopathy Anemia/Thrombocytopenia <MIRYAM Kauffman - Last Filed: 07/25/20 10:12> Plan of Treatment: You tested positive for Covid 19 on 07/20/20 please follow CBC guidelines for self isolation. Complete course of dexamethasone CDC Guidelines for home isolation: - Stay away from others - Limit contact with pets and animals: If you must care for a pet, wash your hands before and after interacting with them - Wear a mask if you are sick - Cover your mouth and nose with a tissue when you cough or sneeze. Dispose of tissues in a lined trash can and wash your hands immediately with soap and water for at least 20 seconds. If soap and water are not available, clean hands with alcohol-based hand senior payroll specialist that contains at least 60% alcohol. - Clean your hands often with soap and water for at least 20 seconds - Avoid touching your eyes, nose and mouth with unwashed hands - Do not share dishes, drinking glasses, cups, eating utensils, towels, or bedding with other people in your home. After using these items, wash them thoroughly with soap and water or put in the marine equipment engineer. - Clean high-touch surfaces in your isolation area (???sick room??? and bathroom) every day; let a caregiver clean and disinfect high-touch surfaces in other areas of the home. Clean the area or item with soap and water or another detergent if it is dirty. Then, use a household disinfectant. Seek medical attention, but call first: - Seek medical care right away if your illness is worsening (for example, if you have difficulty breathing). - Call your doctor before going in: Before going to the doctor???s office or emergency room, call ahead and tell them your symptoms. They will tell you what to do. - If possible, put on a facemask before you enter the building. If you can???t put on a facemask, try to keep a safe distance from other people (at least 6 feet away). This will help protect the people in the office or waiting room. - Follow care instructions from your healthcare provider and local health department: Your local health authorities will give instructions on checking your symptoms and reporting information. Emergency warning signs for COVID-19: - Difficulty breathing or shortness of breath - Persistent pain or pressure in the chest - New confusion or inability to arouse - Bluish lips or face Your ammonia level was elevated. You have been started on lactulose. Please take as prescribed with goal of 2-3 bowel movements per day. Please call your PCP to schedule a follow up appointment. <MIRYAM Kauffman - Last Filed: 07/25/20 10:12> Assessment: see discharge summary <MIRYAM Kauffman - Last Filed: 07/25/20 10:12>
--- NOTE | 2020-07-25 09:58 | MHC.CM.PN ---
PT TO DC HOME TODAY WITH NO SERVICES PT TO SELF ARRANGE TRANSPORT
== END 2020-07-25 13:30 | disposition home or self-care (01) | DRG 720 ==
LOC: HO.ED 20:20 → HO.EDOVER 23:41 → HO.IMC 07-21 15:01
PROVIDERS: Physician Assistant Medical; Radiology Diagnostic Radiology; Admitting Provider Internal Medicine; Emergency Provider Internal Medicine; Visit Provider Internal Medicine
PROC: 0W9G3ZZ Drainage of Peritoneal Cavity, Percutaneous Approach (ICD-10-PCS; principal; 2020-07-21 14:00)
DX: A41.89 Other specified sepsis (principal); U07.1 COVID-19; J96.01 Acute respiratory failure with hypoxia; D68.9 Coagulation defect, unspecified; D69.6 Thrombocytopenia, unspecified; E87.2 Acidosis; F11.20 Opioid dependence, uncomplicated; J12.82 Pneumonia due to coronavirus disease 2019; K70.31 Alcoholic cirrhosis of liver with ascites; J41.1 Mucopurulent chronic bronchitis; F10.10 Alcohol abuse, uncomplicated; K72.90 Hepatic failure, unspecified without coma; F41.9 Anxiety disorder, unspecified; R74.01 Elevation of levels of liver transaminase levels; F17.210 Nicotine dependence, cigarettes, uncomplicated; Z71.6 Tobacco abuse counseling; Z79.899 Other long term (current) drug therapy
CPT/HCPCS: 0241U; 36415; 49083; 71045; 76705; 80048; 80076; 80307; 80320; 81001; 82140; 83605; 83690; 84484; 85007; 85025; 85027; 85610; 85730; 86850; 86900; 86901; 87040; 87071; 87073; 87205; 89051; 93005; 94640; 96365; 96366; 96368; 99285; J0456; J0696; J1100; J2560; J3430; P9037

== ENCOUNTER 2020-08-09 16:25 | Emergency (ER) | payer MEDICAID, SELFPAY ==
--- NOTE | ~2020-08-09 | US_ITS ---
EXAMINATION: US VENOUS ULTRASOUND WITH DOPPLER LOWER EXTREMITY, BILATERAL CLINICAL INFORMATION: Pain and swelling. COMPARISON: None TECHNIQUE: Ultrasound of the deep veins is performed from the hip to the calf with compression sonography and color and pulse Doppler assessment. Spectral analysis with color-flow imaging is performed. FINDINGS: RIGHT: There is normal venous compression and respiratory variation and augmented flow. The visualized common femoral vein, superficial femoral vein, profunda femoral vein, popliteal vein, and the trifurcation region shows no evidence of deep venous thrombosis. There is no significant popliteal fossa cyst. The right groin lymph node measuring 3.3 x 0.76 x 1.7 cm. LEFT: There is normal venous compression and respiratory variation and augmented flow. The visualized common femoral vein, superficial femoral vein, profunda femoral vein, popliteal vein, and the trifurcation region shows no evidence of deep venous thrombosis. There is no significant popliteal fossa cyst. The left groin lymph node measuring 1.8 x 2.6 x 0.97 cm. If the patient's symptoms persist, followup ultrasound in 5 days 7 days might be of value to exclude proximal propagation from a non-visualized calf vein. US/US venous duplex LE BI IMPRESSION: No DVT demonstrated in the bilateral lower extremity.
[2020-08-09 16:39] VITALS: BP 128/74; RESP 16; TEMP 36.6; O2SAT 96; BMI 25.0
[2020-08-09 17:56] LABS: Hematocrit 27.7 % (37-47); MANUAL DIFF FLAG SCAN; Mean Corpuscular Volume 95.5 fL (80-98); SCAN SMEAR FLAG 1
[2020-08-09 17:57] LABS: Basophils Percent Auto 0.5 % (0-2); Eosinophils Absolute Auto 0.1 X10*3/uL (0.0-0.4); Eosinophils Percent Auto 1.7 % (0-4); Imm Gran Abs Auto 0.03 X10*3/uL (0.00-0.03); Imm Gran Pct Auto 0.5 % (0.0-0.4); Lymphocytes Absolute Auto 0.3 X10*3/uL (1.2-4.9); Mean Corpuscular HGB Conc 32.5 g/dl (31.0-35.0); Monocytes Absolute Auto 0.7 X10*3/uL (0.1-1.2); Monocytes Percent Auto 11.9 % (2-11); Neutrophils Absolute Auto 4.7 X10*3/uL (2.0-8.3); Neutrophils Percent Auto 80.4 % (45-73); Red Cell Distribution Width 22.8 % (11.0-16.0); White Blood Count 5.8 X10*3/uL (4.8-10.8)
[2020-08-09 18:00] VITALS: BP 131/82; PULSE 88; RESP 16; TEMP 36.7; O2SAT 96
[2020-08-09 18:01] LABS: PLT ABN DIST 1; Platelet Count 45 X10*3/uL (160-400)
[2020-08-09 18:15] LABS: SLIDE REVIEW VERIFIED
[2020-08-09 18:26] LABS: Alanine Aminotransferase 48 U/L (0-31); Albumin Level 2.1 g/dL (3.5-5.0); Alkaline Phosphatase 100 U/L (39-117); Anion Gap 12 (12-20); Aspartate Amino Transferase 88 U/L (5-31); Bilirubin Direct 1.8 mg/dL (0.0-0.5); Bilirubin Total 2.6 mg/dL (0.0-1.0); Blood Urea Nitrogen 20 mg/dL (9-16); Calcium 7.9 mg/dL (8.4-10.2); Carbon Dioxide 22 mmol/L (22-29); Chloride 103 mmol/L (96-108); Creatinine Clr Calc Pharmacy 42.8; Estimated Glomerular Filt Rate 51; Glucose Random 92 mg/dL (60-115); Potassium 3.6 mmol/L (3.3-5.1); Sodium 133 mmol/L (135-145)
[2020-08-09 20:00] VITALS: BP 137/71; PULSE 69; RESP 18; TEMP 36.6; O2SAT 95
--- NOTE | 2020-08-09 20:09 | ED.GENADULT ---
HPI - General Adult General Chief complaint: General Medical Stated complaint: swollen feet Time Seen by Provider: 08/09/20 17:19 Source: patient Mode of arrival: ambulatory Limitations: no limitations History of Present Illness HPI narrative: 54 yo female with cirrhosis, ascites, hepatitis C, COPD anxiety, alcohol abuse here with 4 to 5 days of LE swelling and rash she states I just want antibiotics I don't want anything else. complaint: leg rash Onset (ago): day(s) (4) Location: lower extremity Radiation: non-radiation Severity: moderate Quality: aching Pain Consistency: constant Relieving factors: movement Exacerbating factors: none Associated symptoms: rash Treatments prior to arrival: none Related Data Home Medications Medication Instructions Recorded Confirmed buprenorphine-naloxone [Suboxone] 1 film BUCCAL DAILY 02/24/20 07/20/20 furosemide 40 mg PO DAILY 02/24/20 07/20/20 multivitamin 1 tab PO DAILY 02/24/20 07/20/20 omeprazole 20 mg PO BID 02/24/20 07/20/20 sertraline 50 mg PO DAILY 02/24/20 07/20/20 spironolactone 100 mg PO DAILY 02/24/20 07/20/20 trazodone 50 mg PO BEDTIME 02/24/20 07/20/20 Combivent Respimat 1 puff INHALATION Q4H PRN 07/20/20 07/20/20 docusate sodium [DOK] 100 mg PO DAILY 07/20/20 07/20/20 Previous Rx's Medication Instructions Recorded magnesium oxide 400 mg PO DAILY 30 Days #30 tab 04/16/20 rifaximin 550 mg tablet 550 mg PO BID 30 Days #60 tab 06/14/20 dexamethasone 6 mg PO DAILY 6 Days #6 tab 07/25/20 lactulose 20 g PO BID 30 Days #1800 ml 07/25/20 Allergies Allergy/AdvReac Type Severity Reaction Status Date / Time No Known Allergies Allergy Verified 03/18/20 10:14 Review of Systems Review of Systems: Constitutional : No Fever, No Chills ENT/Mouth : No sore throat, No Rhinorrhea Eyes: No Eye Pain, No Swelling, No Redness Cardiovascular : No Chest Pain, No SOB, pos edema Respiratory : No Cough, No Sputum Gastrointestinal : No Nausea, No Vomiting, No Diarrhea, No abdominal Pain Genitourinary : No Dysuria, No Hematuria Musculoskeletal : No joint pain, No Myalgias, No Joint Swelling Skin : No Skin Lesions, positive skin rash Neuro : No Weakness, No Numbness, No Headache Psych : No Anxiety, No Depression Heme/Lymph: No Bruising, No Bleeding,No Lymphadenopathy Endocrine : No Polyuria, No Polydipsia All other systems reviewed and are negative [facility] Past Medical History Attestation statement: The following information was validated with the patient. Medical History Acute respiratory failure with hypoxia Alcohol abuse Alcohol abuse with withdrawal Alcoholic cirrhosis of liver with ascites Anxiety Coagulopathy COPD (chronic obstructive pulmonary disease) COPD (chronic obstructive pulmonary disease) 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) Elevated rheumatoid factor Hand paresthesia Hepatitis C Hepatomegaly History of abdominal paracentesis Hyperammonemia Microhematuria Panic attacks Polysubstance abuse Thrombocytopenia Transaminitis Surgical History History of delivery History of esophagogastroduodenoscopy (EGD) (~02/2017) Family History Family History Father Family history of high blood pressure Mother Alive and well Social History Social History Household Members: Children Housing: Apartment Do you presently have visiting nurse or other home services: No Alcohol intake: current Alcohol intake frequency: 3 or more drinks per day Alcohol type: beer Smoking Status: Current every day smoker Tobacco Type: Cigarette Cigarettes Per Day: 3 Second Hand Smoke Exposure: No Advance Directives: No Advance Directives Information Provided: Yes Patient : No service: No Current occupational status: unemployed Physical Exam Vital Signs: Vital Signs: Last Vital Signs Temp 97.9 F 08/09/20 16:39 Resp 16 08/09/20 16:39 BP 128/74 08/09/20 16:39 Pulse Ox 96 08/09/20 16:39 Body Mass Index 25.0 Appearance: Alert. Oriented X3. No acute distress. Eyes: Pupils equal, round and reactive to light. scleral icterus ENT: Pharynx normal. Neck: Normal inspection. Neck supple. CVS: Normal heart rate and rhythm. Pulses normal. Respiratory: No respiratory distress. Breath sounds normal. Abdomen: Soft and nontender. Skin: Skin warm and dry. Normal skin color. Normal skin turgor. cellulitic rash to LLE with warmt - mid [place] Extremities: 2 to 3+ pitting lower extremity edema. No calf ttp Neuro: Oriented X 3. No motor deficit. No sensory deficit. Course Course Course Narrative: signed out to Dr. Meehan pending workup patient refuses admission alert and oriented x 3 Medical Decision Making [facility] Narrative Medical decision making narrative: 54 yo female with cirrhosis, HTN, chronic pain, hep C, reports she needs a tap (wants to call her doctor) she refuses to stay but agrees to US to r/o DVT, I don't want to be here, I just want antibiotics she is alert and oriented, not toxic, answering questions appropriately declines admission - labs, US ordered, PO antibiotics on DC Lab Data Result diagrams: 08/09/20 17:48 08/09/20 17:48 Labs: Lab Results 08/09/20 08/09/20 08/09/20 Range/Units 17:48 17:48 17:48 WBC 5.8 (4.8-10.8) X10*3/uL RBC 2.90 L (4.20-5.50) X10*6/uL Hgb 9.0 L (12.0-16.0) g/dl Hct 27.7 L (37-47) % MCV 95.5 (80-98) fL MCH 31.0 (27.0-33.0) pg MCHC 32.5 (31.0-35.0) g/dl RDW 22.8 H (11.0-16.0) % Plt Count 45 L (160-400) X10*3/uL MPV Not Reportable Immature Gran % (Auto) 0.5 H (0.0-0.4) % Neut % (Auto) 80.4 H (45-73) % Lymph % (Auto) 5.0 L (20-40) % [place] % (Auto) 11.9 H (2-11) % Eos % (Auto) 1.7 (0-4) % Baso % (Auto) 0.5 (0-2) % Lymph # (Auto) 0.3 L (1.2-4.9) X10*3/uL [place] # (Auto) 0.7 (0.1-1.2) X10*3/uL Eos # (Auto) 0.1 (0.0-0.4) X10*3/uL Baso # (Auto) 0.0 (0.0-0.2) X10*3/uL Abs Immat Gran (auto) 0.03 (0.00-0.03) X10*3/uL Absolute Neuts (auto) 4.7 (2.0-8.3) X10*3/uL Absolute Nucleated RBC 0.000 (0.0-0.012) X10*3/uL Nucleated RBC % (auto) 0.0 (0.0-0.2) /100WBC Smear Tech's Comments VERIFIED Hold Blue Top SEE NOTE Sodium 133 L (135-145) mmol/L Potassium 3.6 (3.3-5.1) mmol/L Chloride 103 (96-108) mmol/L Carbon Dioxide 22 (22-29) mmol/L Anion Gap 12 (12-20) BUN 20 H (9-16) mg/dL Creatinine 1.11 (0.5-1.4) mg/dL Estim Creat Clear Calc 42.8 Estimated GFR 51 Random Glucose 92 (60-115) mg/dL Calcium 7.9 L D (8.4-10.2) mg/dL Total Bilirubin 2.6 H (0.0-1.0) mg/dL Direct Bilirubin 1.8 H (0.0-0.5) mg/dL AST 88 H (5-31) U/L ALT 48 H (0-31) U/L Alkaline Phosphatase 100 D (39-117) U/L Total Protein 7.0 (6.5-8.0) g/dL Albumin 2.1 L (3.5-5.0) g/dL Discharge Plan Discharge Clinical Impression: Ascites, Cellulitis Prescriptions: No Action magnesium oxide 400 mg magnesium tablet 400 mg PO DAILY 30 Days Qty: 30 RF: 3 Xifaxan 550 mg tablet 550 mg PO BID 30 Days Qty: 60 RF: 1 docusate sodium [DOK] 100 mg capsule 100 mg PO DAILY RF: 0 Combivent Respimat 20-100 mcg/actuation Mist 1 puff INHALATION Q4H PRN (Reason: Shortness Of Breath) RF: 0 dexamethasone 6 mg tablet 6 mg PO DAILY 6 Days Qty: 6 RF: 0 lactulose 20 gram/30 mL solution 20 g PO BID 30 Days Qty: 1800 RF: 0 multivitamin Tablet 1 tab PO DAILY RF: 0 trazodone 50 mg Tablet 50 mg PO BEDTIME RF: 0 omeprazole 20 mg Capsule,Delayed Release(Dr/Ec) 20 mg PO BID RF: 0 sertraline 50 mg Tablet 50 mg PO DAILY RF: 0 buprenorphine-naloxone [Suboxone] 8-2 mg Film 1 film BUCCAL DAILY RF: 0 furosemide 40 mg Tablet 40 mg PO DAILY RF: 0 spironolactone 25 mg Tablet 100 mg PO DAILY RF: 0
[2020-08-09 22:00] VITALS: BP 126/76; PULSE 78; RESP 16; TEMP 37; O2SAT 97
== END 2020-08-09 23:10 | disposition home or self-care (01) ==
PROVIDERS: Emergency Provider Emergency Medicine; PCP Family Medicine
DX: L03.116 Cellulitis of left lower limb (principal); K70.31 Alcoholic cirrhosis of liver with ascites; R60.0 Localized edema; F10.10 Alcohol abuse, uncomplicated; D69.6 Thrombocytopenia, unspecified; B19.20 Unspecified viral hepatitis C without hepatic coma; I10 Essential (primary) hypertension; J44.9 Chronic obstructive pulmonary disease, unspecified; F41.9 Anxiety disorder, unspecified; F17.210 Nicotine dependence, cigarettes, uncomplicated; F11.20 Opioid dependence, uncomplicated; Z79.899 Other long term (current) drug therapy; Z86.16 Personal history of COVID-19
CPT/HCPCS: 36415; 80048; 80076; 85025; 93970; 99284

== ENCOUNTER 2020-08-13 15:45 | Inpatient (IN) | payer MEDICAID, SELFPAY ==
--- NOTE | ~2020-08-13 | US_ITS ---
EXAMINATION: US VENOUS ULTRASOUND WITH DOPPLER LOWER EXTREMITY, BILATERAL CLINICAL INFORMATION: Swelling. COMPARISON: None TECHNIQUE: Ultrasound of the deep veins is performed from the hip to the calf with compression sonography and color and pulse Doppler assessment. Spectral analysis with color-flow imaging is performed. FINDINGS: RIGHT: There is normal venous compression and respiratory variation and augmented flow. The visualized common femoral vein, superficial femoral vein, profunda femoral vein, popliteal vein, and the trifurcation region shows no evidence of deep venous thrombosis. There is no significant popliteal fossa cyst. There is significant edema in the proximal thigh extending into the calf region. There are right groin lymph nodes with largest one measuring 3.0 x 0.615 cm LEFT: There is normal venous compression and respiratory variation and augmented flow. The visualized common femoral vein, superficial femoral vein, profunda femoral vein, popliteal vein, and the trifurcation region shows no evidence of deep venous thrombosis. There is no significant popliteal fossa cyst. There is significant edema in the proximal thigh extending in the calf region. There are left groin lymph nodes with the largest one measuring 2.8 x 1.1 1.6 cm. If the patient's symptoms persist, followup ultrasound in 5 days 7 days might be of value to exclude proximal propagation from a non-visualized calf vein. US/US venous duplex LE BI IMPRESSION: No DVT demonstrated in the bilateral lower extremity.
--- NOTE | ~2020-08-13 | US_ITS ---
EXAMINATION: ULTRASOUND-GUIDED PARACENTESIS CLINICAL INFORMATION: Hepatic encephalopathy, ascites and abdominal pain COMPARISON: None TECHNIQUE: Following explaining ultrasound-guided paracentesis procedure, benefits and risk a written consent was obtained. Patient was placed supine and preliminary ultrasound imaging was obtained through the abdomen. An optimal site was selected along the right lower quadrant and marked. The marked area was cleaned and draped in usual sterile manner. 1% lidocaine was injected at puncture site. Through a small skin incision a 4 Sloven[place] Yueh catheter was advanced into the peritoneal space. After observing fluid return the stylet was withdrawn and catheter connected to vacuum bottle via connecting cannula. After obtaining all fluid and observing no more fluid return, catheter was withdrawn and complete hemostasis achieved at puncture site. Sterile dressing applied postprocedure. Patient was monitored by our nurse during the exam and was stable. FINDINGS: On preliminary ultrasound imaging there is moderate free fluid seen. Approximately 4.1 L of light yellowish fluid was removed. Part of this fluid was sent to lab for further analysis. US/US paracentesis abd w/image IMPRESSION: Successful ultrasound-guided therapeutic and diagnostic paracentesis performed.
[2020-08-13 16:27] VITALS: BP 150/70; PULSE 76; RESP 18; TEMP 36.9; O2SAT 98; BMI 27.4
[2020-08-13 17:11] LABS: Imm Gran Abs Auto 0.02 X10*3/uL (0.00-0.03); Imm Gran Pct Auto 0.5 % (0.0-0.4); Lymphocytes Absolute Auto 0.4 X10*3/uL (1.2-4.9); MANUAL DIFF FLAG SCAN; Monocytes Percent Auto 14.4 % (2-11); Red Blood Count 3.06 X10*6/uL (4.20-5.50); SCAN SMEAR FLAG 1
[2020-08-13 17:13] LABS: Basophils Percent Auto 0.8 % (0-2); Eosinophils Absolute Auto 0.1 X10*3/uL (0.0-0.4); Eosinophils Percent Auto 1.8 % (0-4); Hematocrit 29.2 % (37-47); Hemoglobin 9.4 g/dl (12.0-16.0); Lymphocytes Percent Auto 10.7 % (20-40); Mean Corpuscular HGB Conc 32.2 g/dl (31.0-35.0); Mean Corpuscular Hemoglobin 30.7 pg (27.0-33.0); Mean Corpuscular Volume 95.4 fL (80-98); Monocytes Absolute Auto 0.6 X10*3/uL (0.1-1.2); Neutrophils Absolute Auto 2.7 X10*3/uL (2.0-8.3); Neutrophils Percent Auto 71.8 % (45-73); Platelet Count 49 X10*3/uL (160-400); Red Cell Distribution Width 22.1 % (11.0-16.0); White Blood Count 3.8 X10*3/uL (4.8-10.8)
[2020-08-13 17:14] LABS: PLT ABN DIST 1
[2020-08-13 17:44] LABS: Alanine Aminotransferase 39 U/L (0-31); Albumin Level 2.1 g/dL (3.5-5.0); Alkaline Phosphatase 103 U/L (39-117); Anion Gap 11 (12-20); Aspartate Amino Transferase 78 U/L (5-31); Bilirubin Total 2.1 mg/dL (0.0-1.0); Blood Urea Nitrogen 20 mg/dL (9-16); Calcium 7.6 mg/dL (8.4-10.2); Carbon Dioxide 20 mmol/L (22-29); Chloride 104 mmol/L (96-108); Creatinine Clr Calc Pharmacy 51.9; Estimated Glomerular Filt Rate 58; Glucose Random 104 mg/dL (60-115); Potassium 3.1 mmol/L (3.3-5.1); Sodium 132 mmol/L (135-145); Total Protein 6.9 g/dL (6.5-8.0)
[2020-08-13 17:57] LABS: SLIDE REVIEW VERIFIED
--- NOTE | 2020-08-13 22:09 | ED_ITS ---
HPI - General Adult General Chief complaint: Skin/Abscess/Foreign Body Stated complaint: infection Time Seen by Provider: 08/13/20 21:22 Source: patient Mode of arrival: ambulatory Limitations: no limitations History of Present Illness HPI narrative: Patient comes emergency room complaining of abdominal pain distension. Patient states that she has had thoracentesis in the past, last time approximately 6 months ago. Patient states she has significant pressure and it is bothering her quite a bit. Patient states her abdomen does not hurt other than the pressure sensation. Patient has had chills, no fever. Patient has been seen few days ago for cellulitis of the left lower extremity, a venous duplex ultrasound done on August 09 which showed no DVT. Patient was started on Keflex and doxycycline. Patient states that she has been taking her antibiotics, but the pain and the redness keeps getting worse. Related Data Home Medications Medication Instructions Recorded Confirmed buprenorphine-naloxone [Suboxone] 1 film BUCCAL DAILY 02/24/20 07/20/20 furosemide 40 mg PO DAILY 02/24/20 07/20/20 multivitamin 1 tab PO DAILY 02/24/20 07/20/20 omeprazole 20 mg PO BID 02/24/20 07/20/20 sertraline 50 mg PO DAILY 02/24/20 07/20/20 spironolactone 100 mg PO DAILY 02/24/20 07/20/20 trazodone 50 mg PO BEDTIME 02/24/20 07/20/20 Combivent Respimat 1 puff INHALATION Q4H PRN 07/20/20 07/20/20 docusate sodium [DOK] 100 mg PO DAILY 07/20/20 07/20/20 Previous Rx's Medication Instructions Recorded magnesium oxide 400 mg PO DAILY 30 Days #30 tab 04/16/20 dexamethasone 6 mg PO DAILY 6 Days #6 tab 07/25/20 lactulose 20 g PO BID 30 Days #1800 ml 07/25/20 cephalexin 500 mg PO QID 10 Days #40 cap 08/09/20 doxycycline hyclate 100 mg PO BID #20 cap 08/09/20 rifaximin 550 mg tablet 550 mg PO BID 30 Days #60 tab 08/13/20 Allergies Allergy/AdvReac Type Severity Reaction Status Date / Time No Known Allergies Allergy Verified 08/13/20 16:25 Review of Systems Review of Systems: Constitutional : No Fever, complaining of Chills, No Night Sweats, No Fatigue, No Malaise ENT/Mouth : No Hearing loss, No Ear Pain, No Nasal Congestion, No Sinus Pain, No Hoarseness, No sore throat, No Rhinorrhea, No Swallowing Difficulty Eyes: No Eye Pain, No Swelling, No Redness, No Foreign Body, No Discharge, No Vision Changes Cardiovascular : No Chest Pain, No SOB, No Dyspnea on Exertion, No Orthopnea, No Edema, No Palpitations Respiratory : No Cough, No Sputum, No Wheezing, No Smoke Exposure, No Dyspnea Gastrointestinal : No Nausea, No Vomiting, No Diarrhea, No Constipation, comp laining of abdominal distension, No Hematochezia, No Melena Genitourinary : no irregular bleeding, No Dysuria, No Urinary Frequency, No Hematuria, No Urinary Incontinence, No Urgency, No Flank Pain, No Urinary Flow Changes, No Hesitancy Musculoskeletal : No joint pain, No Myalgias, No Joint Swelling Skin : Complaining of left lower extremity cellulitis that seems to be worsening per patient Neuro : No Weakness, No Numbness, No Paresthesias, No Loss of Consciousness, No Dizziness, No Headache Psych : No Anxiety/Panic, No Depression, No SI/HI/AH/VH, No Social Issues, Heme/Lymph: No Bruising, No Bleeding,No Lymphadenopathy Endocrine : No Polyuria, No Polydipsia, No Temperature Intolerance [facility] Past Medical History Medical History Acute respiratory failure with hypoxia Alcohol abuse Alcohol abuse with withdrawal Alcoholic cirrhosis of liver with ascites Anxiety Coagulopathy COPD (chronic obstructive pulmonary disease) COPD (chronic obstructive pulmonary disease) 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) Elevated rheumatoid factor Hand paresthesia Hepatitis C Hepatomegaly History of abdominal paracentesis Hyperammonemia Microhematuria Panic attacks Polysubstance abuse Thrombocytopenia Transaminitis Surgical History History of delivery History of esophagogastroduodenoscopy (EGD) (~02/2017) Family History Family History Father Family history of high blood pressure Mother Alive and well Social History Social History Household Members: Children Housing: Apartment Do you presently have visiting nurse or other home services: No Alcohol intake: current Alcohol intake frequency: 3 or more drinks per day Alcohol type: beer Cigarettes Per Day: 3 Second Hand Smoke Exposure: No Advance Directives: No Advance Directives Information Provided: Yes Patient : No service: No Current occupational status: unemployed Physical Exam Vital Signs: Vital Signs: Last Vital Signs Temp 98.4 F 08/13/20 16:27 Pulse 76 08/13/20 16:27 Resp 18 08/13/20 16:27 BP 150/70 H 08/13/20 16:27 Pulse Ox 98 08/13/20 16:27 Body Mass Index 27.4 Appearance: Alert. Oriented X3. No acute distress. Eyes: Pupils equal, round and reactive to light. ENT: Pharynx normal. Neck: Normal inspection. Neck supple. No lymph nodes noted. No crepitus CVS: Normal heart rate and rhythm. Pulses normal. Normal S1 and S2 with a systolic murmur Respiratory: No respiratory distress. Breath sounds normal. No Wheezing. No rales Abdomen: Soft distended, nontender. On ultrasound, there is a large ascites collection in the right lower quadrant Skin: Skin warm and dry. Cellulitis in bilateral lower extremities, worse in the left lower extremity distally, pain to palpation, erythematous Extremities: +3 bilateral pitting edema Neuro: Oriented X 3. No motor deficit. No sensory deficit. Moving all extermities. No slurred speech. Course Course Course Narrative: Patient's INR is slightly elevated, platelets are chronically low. At this time, spontaneous bacterial peritonitis is not suspected. Patient will likely need paracentesis in the morning by IR. I discussed the patient with Dr. Da Silva, patient also has cellulitis, patient was started on vancomycin and Zosyn. Patient received lactulose and oral potassium. Medical Decision Making Lab Data Result diagrams: 08/13/20 22:18 08/13/20 22:18 Labs: Lab Results 08/13/20 08/13/20 08/13/20 Range/Units 16:59 16:59 16:59 WBC 3.8 L (4.8-10.8) X10*3/uL RBC 3.06 L (4.20-5.50) X10*6/uL Hgb 9.4 L (12.0-16.0) g/dl Hct 29.2 L (37-47) % MCV 95.4 (80-98) fL MCH 30.7 (27.0-33.0) pg MCHC 32.2 (31.0-35.0) g/dl RDW 22.1 H (11.0-16.0) % Plt Count 49 L (160-400) X10*3/uL MPV Not Reportable Immature Gran % (Auto) 0.5 H (0.0-0.4) % Neut % (Auto) 71.8 (45-73) % Lymph % (Auto) 10.7 L (20-40) % [place] % (Auto) 14.4 H (2-11) % Eos % (Auto) 1.8 (0-4) % Baso % (Auto) 0.8 (0-2) % Lymph # (Auto) 0.4 L (1.2-4.9) X10*3/uL [place] # (Auto) 0.6 (0.1-1.2) X10*3/uL Eos # (Auto) 0.1 (0.0-0.4) X10*3/uL Baso # (Auto) 0.0 (0.0-0.2) X10*3/uL Abs Immat Gran (auto) 0.02 (0.00-0.03) X10*3/uL Absolute Neuts (auto) 2.7 (2.0-8.3) X10*3/uL Absolute Nucleated RBC 0.000 (0.0-0.012) X10*3/uL Nucleated RBC % (auto) 0.0 (0.0-0.2) /100WBC Smear Tech's Comments VERIFIED PT (10.8-13.0) SEC INR (0.9-1.1) Hold Blue Top SEE NOTE Sodium 132 L (135-145) mmol/L Potassium 3.1 L (3.3-5.1) mmol/L Chloride 104 (96-108) mmol/L Carbon Dioxide 20 L (22-29) mmol/L Anion Gap 11 L (12-20) BUN 20 H (9-16) mg/dL Creatinine 1.00 (0.5-1.4) mg/dL Estim Creat Clear Calc 51.9 Estimated GFR 58 Random Glucose 104 (60-115) mg/dL Lactic Acid (0.5-2.0) mmol/L Calcium 7.6 L (8.4-10.2) mg/dL Magnesium (1.6-2.6) mg/dL Total Bilirubin 2.1 H (0.0-1.0) mg/dL Direct Bilirubin (0.0-0.5) mg/dL AST 78 H (5-31) U/L ALT 39 H (0-31) U/L Alkaline Phosphatase 103 (39-117) U/L Ammonia (13-55) umol/L B-Natriuretic Peptide (<100) pg/mL Total Protein 6.9 (6.5-8.0) g/dL Albumin 2.1 L (3.5-5.0) g/dL Lipase (8-78) U/L Ethyl Alcohol mg/dL COVID-19 ([facility]ABE) (Negative) COVID-19 Clin Com 08/13/20 08/13/20 08/13/20 Range/Units 22:18 22:18 22:18 WBC 4.0 L (4.8-10.8) X10*3/uL RBC 3.02 L (4.20-5.50) X10*6/uL Hgb 9.2 L (12.0-16.0) g/dl Hct 28.8 L (37-47) % MCV 95.4 (80-98) fL MCH 30.5 (27.0-33.0) pg MCHC 31.9 (31.0-35.0) g/dl RDW 22.3 H (11.0-16.0) % Plt Count 50 L (160-400) X10*3/uL MPV Not Reportable Immature Gran % (Auto) 0.3 (0.0-0.4) % Neut % (Auto) 72.9 (45-73) % Lymph % (Auto) 10.1 L (20-40) % [place] % (Auto) 14.1 H (2-11) % Eos % (Auto) 1.8 (0-4) % Baso % (Auto) 0.8 (0-2) % Lymph # (Auto) 0.4 L (1.2-4.9) X10*3/uL [place] # (Auto) 0.6 (0.1-1.2) X10*3/uL Eos # (Auto) 0.1 (0.0-0.4) X10*3/uL Baso # (Auto) 0.0 (0.0-0.2) X10*3/uL Abs Immat Gran (auto) 0.01 (0.00-0.03) X10*3/uL Absolute Neuts (auto) 2.9 (2.0-8.3) X10*3/uL Absolute Nucleated RBC 0.000 (0.0-0.012) X10*3/uL Nucleated RBC % (auto) 0.0 (0.0-0.2) /100WBC Smear Tech's Comments PT (10.8-13.0) SEC INR (0.9-1.1) Hold Blue Top Sodium 134 L (135-145) mmol/L Potassium 2.9 L (3.3-5.1) mmol/L Chloride 104 (96-108) mmol/L Carbon Dioxide 20 L (22-29) mmol/L Anion Gap 13 (12-20) BUN 20 H (9-16) mg/dL Creatinine 0.94 (0.5-1.4) mg/dL Estim Creat Clear Calc 55.3 Estimated GFR > 60 Random Glucose 100 (60-115) mg/dL Lactic Acid 1.4 (0.5-2.0) mmol/L Calcium 7.7 L (8.4-10.2) mg/dL Magnesium 1.8 (1.6-2.6) mg/dL Total Bilirubin 2.4 H (0.0-1.0) mg/dL Direct Bilirubin 1.7 H (0.0-0.5) mg/dL AST 76 H (5-31) U/L ALT 40 H (0-31) U/L Alkaline Phosphatase 100 (39-117) U/L Ammonia (13-55) umol/L B-Natriuretic Peptide (<100) pg/mL Total Protein 7.2 (6.5-8.0) g/dL Albumin 2.1 L (3.5-5.0) g/dL Lipase (8-78) U/L Ethyl Alcohol mg/dL COVID-19 ([facility]ABE) (Negative) COVID-19 Clin Com 08/13/20 08/13/20 08/13/20 Range/Units 22:18 22:26 22:26 WBC (4.8-10.8) X10*3/uL RBC (4.20-5.50) X10*6/uL Hgb (12.0-16.0) g/dl Hct (37-47) % MCV (80-98) fL MCH (27.0-33.0) pg MCHC (31.0-35.0) g/dl RDW (11.0-16.0) % Plt Count (160-400) X10*3/uL MPV Immature Gran % (Auto) (0.0-0.4) % Neut % (Auto) (45-73) % Lymph % (Auto) (20-40) % [place] % (Auto) (2-11) % Eos % (Auto) (0-4) % Baso % (Auto) (0-2) % Lymph # (Auto) (1.2-4.9) X10*3/uL [place] # (Auto) (0.1-1.2) X10*3/uL Eos # (Auto) (0.0-0.4) X10*3/uL Baso # (Auto) (0.0-0.2) X10*3/uL Abs Immat Gran (auto) (0.00-0.03) X10*3/uL Absolute Neuts (auto) (2.0-8.3) X10*3/uL Absolute Nucleated RBC (0.0-0.012) X10*3/uL Nucleated RBC % (auto) (0.0-0.2) /100WBC Smear Tech's Comments PT (10.8-13.0) SEC INR (0.9-1.1) Hold Blue Top Sodium (135-145) mmol/L Potassium (3.3-5.1) mmol/L Chloride (96-108) mmol/L Carbon Dioxide (22-29) mmol/L Anion Gap (12-20) BUN (9-16) mg/dL Creatinine (0.5-1.4) mg/dL Estim Creat Clear Calc Estimated GFR Random Glucose (60-115) mg/dL Lactic Acid (0.5-2.0) mmol/L Calcium (8.4-10.2) mg/dL Magnesium (1.6-2.6) mg/dL Total Bilirubin (0.0-1.0) mg/dL Direct Bilirubin (0.0-0.5) mg/dL AST (5-31) U/L ALT (0-31) U/L Alkaline Phosphatase (39-117) U/L Ammonia 110 H (13-55) umol/L B-Natriuretic Peptide 81 (<100) pg/mL Total Protein (6.5-8.0) g/dL Albumin (3.5-5.0) g/dL Lipase 52 (8-78) U/L Ethyl Alcohol mg/dL COVID-19 ([facility]ABE) (Negative) COVID-19 Clin Com 08/13/20 08/13/20 08/13/20 Range/Units 22:26 22:26 22:27 WBC (4.8-10.8) X10*3/uL RBC (4.20-5.50) X10*6/uL Hgb (12.0-16.0) g/dl Hct (37-47) % MCV (80-98) fL MCH (27.0-33.0) pg MCHC (31.0-35.0) g/dl RDW (11.0-16.0) % Plt Count (160-400) X10*3/uL MPV Immature Gran % (Auto) (0.0-0.4) % Neut % (Auto) (45-73) % Lymph % (Auto) (20-40) % [place] % (Auto) (2-11) % Eos % (Auto) (0-4) % Baso % (Auto) (0-2) % Lymph # (Auto) (1.2-4.9) X10*3/uL [place] # (Auto) (0.1-1.2) X10*3/uL Eos # (Auto) (0.0-0.4) X10*3/uL Baso # (Auto) (0.0-0.2) X10*3/uL Abs Immat Gran (auto) (0.00-0.03) X10*3/uL Absolute Neuts (auto) (2.0-8.3) X10*3/uL Absolute Nucleated RBC (0.0-0.012) X10*3/uL Nucleated RBC % (auto) (0.0-0.2) /100WBC Smear Tech's Comments PT 25.9 H (10.8-13.0) SEC INR 2.2 H (0.9-1.1) Hold Blue Top Sodium (135-145) mmol/L Potassium (3.3-5.1) mmol/L Chloride (96-108) mmol/L Carbon Dioxide (22-29) mmol/L Anion Gap (12-20) BUN (9-16) mg/dL Creatinine (0.5-1.4) mg/dL Estim Creat Clear Calc Estimated GFR Random Glucose (60-115) mg/dL Lactic Acid (0.5-2.0) mmol/L Calcium (8.4-10.2) mg/dL Magnesium (1.6-2.6) mg/dL Total Bilirubin (0.0-1.0) mg/dL Direct Bilirubin (0.0-0.5) mg/dL AST (5-31) U/L ALT (0-31) U/L Alkaline Phosphatase (39-117) U/L Ammonia (13-55) umol/L B-Natriuretic Peptide (<100) pg/mL Total Protein (6.5-8.0) g/dL Albumin (3.5-5.0) g/dL Lipase (8-78) U/L Ethyl Alcohol < 10 mg/dL COVID-19 (GABE) Negative (Negative) COVID-19 Clin Com See Note Critical Care Time Critical Care Time Total Critical Care Time: 50 Discharge Plan Discharge Clinical Impression: Ascites due to alcoholic cirrhosis, Acute hypokalemia, Cellulitis of left leg Patient Disposition: Admitted As Inpatient Prescriptions: No Action magnesium oxide 400 mg magnesium tablet 400 mg PO DAILY 30 Days Qty: 30 RF: 3 Xifaxan 550 mg tablet 550 mg PO BID 30 Days Qty: 60 RF: 1 docusate sodium [DOK] 100 mg capsule 100 mg PO DAILY RF: 0 Combivent Respimat 20-100 mcg/actuation Mist 1 puff INHALATION Q4H PRN (Reason: Shortness Of Breath) RF: 0 dexamethasone 6 mg tablet 6 mg PO DAILY 6 Days Qty: 6 RF: 0 lactulose 20 gram/30 mL solution 20 g PO BID 30 Days Qty: 1800 RF: 0 doxycycline hyclate 100 mg capsule 100 mg PO BID Qty: 20 RF: 0 cephalexin 500 mg capsule 500 mg PO QID 10 Days Qty: 40 RF: 0 multivitamin Tablet 1 tab PO DAILY RF: 0 trazodone 50 mg Tablet 50 mg PO BEDTIME RF: 0 omeprazole 20 mg Capsule,Delayed Release(Dr/Ec) 20 mg PO BID RF: 0 sertraline 50 mg Tablet 50 mg PO DAILY RF: 0 buprenorphine-naloxone [Suboxone] 8-2 mg Film 1 film BUCCAL DAILY RF: 0 furosemide 40 mg Tablet 40 mg PO DAILY RF: 0 spironolactone 25 mg Tablet 100 mg PO DAILY RF: 0
[2020-08-13 22:26] LABS: Basophils Percent Auto 0.8 % (0-2); Eosinophils Absolute Auto 0.1 X10*3/uL (0.0-0.4); Eosinophils Percent Auto 1.8 % (0-4); Hematocrit 28.8 % (37-47); Hemoglobin 9.2 g/dl (12.0-16.0); Imm Gran Abs Auto 0.01 X10*3/uL (0.00-0.03); Imm Gran Pct Auto 0.3 % (0.0-0.4); Lymphocytes Absolute Auto 0.4 X10*3/uL (1.2-4.9); Lymphocytes Percent Auto 10.1 % (20-40); MANUAL DIFF FLAG SCAN; Mean Corpuscular HGB Conc 31.9 g/dl (31.0-35.0); Mean Corpuscular Hemoglobin 30.5 pg (27.0-33.0); Mean Corpuscular Volume 95.4 fL (80-98); Monocytes Absolute Auto 0.6 X10*3/uL (0.1-1.2); Monocytes Percent Auto 14.1 % (2-11); Neutrophils Absolute Auto 2.9 X10*3/uL (2.0-8.3); Neutrophils Percent Auto 72.9 % (45-73); Red Blood Count 3.02 X10*6/uL (4.20-5.50); Red Cell Distribution Width 22.3 % (11.0-16.0); SCAN SMEAR FLAG 1
[2020-08-13 22:27] LABS: Platelet Count 50 X10*3/uL (160-400)
--- NOTE | 2020-08-13 22:36 | PC.NURSE ---
VERY POOR PERIPHERAL ACCESS. DELAY IN OBTAINING LAB WORK.
[2020-08-13 22:46] LABS: Lactic Acid 1.4 mmol/L (0.5-2.0)
[2020-08-13 22:50] LABS: Lipase 52 U/L (8-78)
[2020-08-13 22:52] LABS: COVID-19 Test Negative (Negative)
[2020-08-13 22:53] LABS: Ammonia 110 umol/L (13-55)
[2020-08-13 22:53] LABS: INTERNATIONAL NORM RATIO 2.2 (0.9-1.1); Prothrombin Time 25.9 SEC (10.8-13.0)
[2020-08-13 22:55] LABS: Alanine Aminotransferase 40 U/L (0-31); Albumin Level 2.1 g/dL (3.5-5.0); Alkaline Phosphatase 100 U/L (39-117); Anion Gap 13 (12-20); Aspartate Amino Transferase 76 U/L (5-31); Bilirubin Direct 1.7 mg/dL (0.0-0.5); Bilirubin Total 2.4 mg/dL (0.0-1.0); Blood Urea Nitrogen 20 mg/dL (9-16); Calcium 7.7 mg/dL (8.4-10.2); Carbon Dioxide 20 mmol/L (22-29); Chloride 104 mmol/L (96-108); Creatinine Clr Calc Pharmacy 55.3; Estimated Glomerular Filt Rate > 60; Glucose Random 100 mg/dL (60-115); Magnesium 1.8 mg/dL (1.6-2.6); Potassium 2.9 mmol/L (3.3-5.1); Sodium 134 mmol/L (135-145); Total Protein 7.2 g/dL (6.5-8.0)
[2020-08-13 23:07] LABS: B Type Natriuretic Peptide 81 pg/mL (<100)
[2020-08-13 23:09] LABS: Ethanol < 10 mg/dL
[2020-08-14] VITALS (12 sets, daily range): BP systolic 104–147; BP diastolic 60–77; PULSE 71–77; RESP 16–20; TEMP 36.4–37.1; O2SAT 95–98; BMI 28.7
[2020-08-14] MEDS: Lactulose 20 GM/30 ML SOLUTION 30 GM PO ×2 (00:04→08:44)
[2020-08-14] MEDS: Potassium Chloride Packet 20 MEQ PACKET 40 MEQ PO (00:08)
[2020-08-14] MEDS: Piperacillin Sodium/Tazobactam 3.375 GM in 0.9 % Sodium Chloride 50 ML IV ×3 (00:08→16:21)
--- NOTE | 2020-08-14 01:12 | PM.IMHP ---
History of Present Illness Date of Service: 08/14/20 Chief Complaint: Abdominal discomfort A 54-year-old female with a past medical history of alcohol abuse, alcoholic liver cirrhosis, ascites, history of hep C, history of substance abuse on Suboxone, COPD, anxiety, thrombocytopenia, history of abdominal paracentesis presented to the hospital with a chief complaint of bilateral lower extremity pain; more on the left lower extremity. Mentioned that she was on oral antibiotics as outpatient. Patient reports that over the past few days he has been having abdominal distention and discomfort. Denies any abdominal pain, nausea vomiting diarrhea. Denies any abdominal pain. Denies any numbness tingling. Denies any chest pain or palpitations. Denies any hematemesis or melena. Review of all other systems is negative except mentioned above ER course: For ER team patient's abdomen was distended but not tender. On labs noted to have elevated INR, low platelets, potassium of 2.9. No EKG changes given potassium supplementation. Noted to have left lower extremity erythema concern for cellulitis. Started on Zosyn. Also mentioned that patient was opiate positive about 3 weeks ago but currently negative. Denies any respiratory symptoms. [facility] Medical History Acute respiratory failure with hypoxia Alcohol abuse Alcohol abuse with withdrawal Alcoholic cirrhosis of liver with ascites Anxiety Coagulopathy COPD (chronic obstructive pulmonary disease) COPD (chronic obstructive pulmonary disease) 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) Elevated rheumatoid factor Hand paresthesia Hepatitis C Hepatomegaly History of abdominal paracentesis Hyperammonemia Microhematuria Panic attacks Polysubstance abuse Thrombocytopenia Transaminitis Family History Father Family history of high blood pressure Mother Alive and well Surgical History History of delivery History of esophagogastroduodenoscopy (EGD) (~02/2017) Social History Household Members: Children Housing: House Do you presently have visiting nurse or other home services: No Alcohol intake: current Alcohol intake frequency: 3 or more drinks per day Alcohol type: beer Patient Tobacco Use Status: Current everyday Tobacco user Tobacco use type: Cigarette Cigarettes Per Day: 4 Smoked in Last 30 Days: Yes Patient Interested in Nicotine Replacement: No Patient Given Instructions on How to Stop Smoking: Yes Date Education Initiated: 08/14/20 Second Hand Smoke Exposure: No Use of substances other than those prescribed or required for medical reasons: No Currently Displaying Signs/Symptoms of Drug Intoxication Withdrawal: No Have you been hit, kicked, punched, or otherwise hurt by someone within the past year? If so, by whom?: No Do you feel safe in your current relationship?: No Current Relationship Is there a partner from a previous relationship who is making you feel unsafe now?: No Are you made to feel afraid or neglected: No Advance Directives: No Advance Directives Information Provided: Yes Do you have thoughts of harming others: None Do you have a plan to hurt others: No Plan Recently lost weight without trying: No Nutrition Risks: No Nutritional Risk Patient : No : No Poor oral hygiene: No service: No Current occupational status: unemployed Meds Allergies Allergy/AdvReac Type Severity Reaction Status Date / Time No Known Allergies Allergy Verified 08/13/20 16:25 Active Medications: Current Medications Generic Name Dose Route Start Last Admin Trade Name Freq PRN Reason Stop Dose Admin Docusate Sodium 100 mg 08/14/20 09:00 Docusate Sodium 100 Mg Capsule PO DAILY [facility] Furosemide 40 mg 08/14/20 09:00 Furosemide 40 Mg Tablet PO DAILY [facility] Protocol Piperacillin Sod/Tazobactam 50 mls @ 100 mls/hr 08/14/20 01:00 Sod 3.375 gm/ Sodium Chloride IV Q8H [facility] Lactulose 30 gm 08/13/20 23:45 08/14/20 00:04 Lactulose 20 Gm/30 Ml Solution PO 30 gm TID [facility] Administration Lactulose 20 gm 08/14/20 09:00 Lactulose 20 Gm/30 Ml Solution PO BID [facility] Multivitamins/Vitamin C 1 tab 08/14/20 09:00 Multivitamin Tablet PO DAILY [facility] Omeprazole 20 mg 08/14/20 09:00 Omeprazole 20 Mg Capsule. PO BID [facility] Pharmacy Consult 1 each 08/13/20 23:33 Consult Rx Vancomycin Dosing MISCELLANE DAILY PRN Consult order Rifaximin 550 mg 08/14/20 09:00 Rifaximin 550 Mg Tablet PO BID [facility] Sertraline HCl 50 mg 08/14/20 09:00 Sertraline Hcl 50 Mg Tablet PO DAILY [facility] Sodium Chloride 3 ml 08/14/20 08:00 0.9 % Sodium Chloride Flush 3 Ml Syringe IVFLUSH QSHIFT [facility] Spironolactone 100 mg 08/14/20 09:00 Spironolactone 25 Mg Tablet PO DAILY [facility] Protocol Trazodone HCl 50 mg 08/14/20 21:00 Trazodone Hcl 50 Mg Tablet PO BEDTIME [facility] Home Medications Medication Instructions Recorded Confirmed Last Taken Type buprenorphine-naloxone [Suboxone] 1 film BUCCAL DAILY 02/24/20 08/14/20 Unknown History furosemide 40 mg PO DAILY 02/24/20 08/14/20 Unknown History multivitamin 1 tab PO DAILY 02/24/20 08/14/20 Unknown History omeprazole 20 mg PO BID 02/24/20 08/14/20 Unknown History sertraline 50 mg PO DAILY 02/24/20 08/14/20 Unknown History spironolactone 100 mg PO DAILY 02/24/20 08/14/20 Unknown History trazodone 50 mg PO BEDTIME 02/24/20 08/14/20 Unknown History Combivent Respimat 1 puff INHALATION Q4H PRN 07/20/20 08/14/20 Unknown History docusate sodium [DOK] 100 mg PO DAILY 07/20/20 08/14/20 Unknown History Physical Exam Vital Signs and Narrative: Vital Signs: Last Vital Signs Temp 98.4 F 08/13/20 16:27 Pulse 76 08/13/20 16:27 Resp 18 08/13/20 16:27 BP 150/70 H 08/13/20 16:27 Pulse Ox 98 08/13/20 16:27 Body Mass Index 27.4 Gen: Appears be in no acute distress HEENT: NCAT, Moist mucosa. Pulmonary: Vesicular breath sounds, fair air entry CVS: Normal S1-S2 Abdomen: BS+, Soft, distended; nontender Extremities: Warm well perfused; bilateral lower extremity 2+ edema, hyperemia, more on left lower extremity. Tender to palpate bilaterally. Neuro: Alert and awake. Results Labs CBC and Chem 7: 08/16/20 05:24 08/16/20 05:24 Labs: Laboratory Results - last 24 hr 08/13/20 08/13/20 08/13/20 16:59 16:59 16:59 MCV 95.4 MCH 30.7 MCHC 32.2 RDW 22.1 H Plt Count 49 L MPV Not Reportable Immature Gran % (Auto) 0.5 H Neut % (Auto) 71.8 Lymph % (Auto) 10.7 L [place] % (Auto) 14.4 H Eos % (Auto) 1.8 Baso % (Auto) 0.8 Lymph # (Auto) 0.4 L [place] # (Auto) 0.6 Eos # (Auto) 0.1 Baso # (Auto) 0.0 Abs Immat Gran (auto) 0.02 Absolute Neuts (auto) 2.7 Absolute Nucleated RBC 0.000 Nucleated RBC % (auto) 0.0 Smear Tech's Comments VERIFIED PT INR Hold Blue Top SEE NOTE Anion Gap 11 L Estim Creat Clear Calc 51.9 Estimated GFR 58 Random Glucose 104 Lactic Acid Calcium 7.6 L Magnesium Total Bilirubin 2.1 H Direct Bilirubin AST 78 H ALT 39 H Alkaline Phosphatase 103 Ammonia B-Natriuretic Peptide Total Protein 6.9 Albumin 2.1 L Lipase Ethyl Alcohol COVID-19 ([facility]) COVID-19 Clin [facility] 08/13/20 08/13/20 08/13/20 22:18 22:18 22:18 MCV 95.4 MCH 30.5 MCHC 31.9 RDW 22.3 H Plt Count 50 L MPV Not Reportable Immature Gran % (Auto) 0.3 Neut % (Auto) 72.9 Lymph % (Auto) 10.1 L [place] % (Auto) 14.1 H Eos % (Auto) 1.8 Baso % (Auto) 0.8 Lymph # (Auto) 0.4 L [place] # (Auto) 0.6 Eos # (Auto) 0.1 Baso # (Auto) 0.0 Abs Immat Gran (auto) 0.01 Absolute Neuts (auto) 2.9 Absolute Nucleated RBC 0.000 Nucleated RBC % (auto) 0.0 Smear Tech's Comments PT INR Hold Blue Top Anion Gap 13 Estim Creat Clear Calc 55.3 Estimated GFR > 60 Random Glucose 100 Lactic Acid 1.4 Calcium 7.7 L Magnesium 1.8 Total Bilirubin 2.4 H Direct Bilirubin 1.7 H AST 76 H ALT 40 H Alkaline Phosphatase 100 Ammonia B-Natriuretic Peptide Total Protein 7.2 Albumin 2.1 L Lipase Ethyl Alcohol COVID-19 (GABE) COVID-19 Clin Com 08/13/20 08/13/20 08/13/20 22:18 22:26 22:26 MCV MCH MCHC RDW Plt Count MPV Immature Gran % (Auto) Neut % (Auto) Lymph % (Auto) [place] % (Auto) Eos % (Auto) Baso % (Auto) Lymph # (Auto) [place] # (Auto) Eos # (Auto) Baso # (Auto) Abs Immat Gran (auto) Absolute Neuts (auto) Absolute Nucleated RBC Nucleated RBC % (auto) Smear Tech's Comments PT INR Hold Blue Top Anion Gap Estim Creat Clear Calc Estimated GFR Random Glucose Lactic Acid Calcium Magnesium Total Bilirubin Direct Bilirubin AST ALT Alkaline Phosphatase Ammonia 110 H B-Natriuretic Peptide 81 Total Protein Albumin Lipase 52 Ethyl Alcohol COVID-19 (GABE) COVID-19 Clin Com 08/13/20 08/13/20 08/13/20 22:26 22:26 22:27 MCV MCH MCHC RDW Plt Count MPV Immature Gran % (Auto) Neut % (Auto) Lymph % (Auto) [place] % (Auto) Eos % (Auto) Baso % (Auto) Lymph # (Auto) [place] # (Auto) Eos # (Auto) Baso # (Auto) Abs Immat Gran (auto) Absolute Neuts (auto) Absolute Nucleated RBC Nucleated RBC % (auto) Smear Tech's Comments PT 25.9 H INR 2.2 H Hold Blue Top Anion Gap Estim Creat Clear Calc Estimated GFR Random Glucose Lactic Acid Calcium Magnesium Total Bilirubin Direct Bilirubin AST ALT Alkaline Phosphatase Ammonia B-Natriuretic Peptide Total Protein Albumin Lipase Ethyl Alcohol < 10 COVID-19 (GABE) Negative COVID-19 Clin Com See Note Assessment and Plan (1) Cellulitis of left leg: Status: Acute 54-year-old female with a past medical history of hep C, alcohol abuse, history of liver cirrhosis, history of ascites, anxiety, recent history of COVID-19 positive; presented to the hospital with a chief complaint of abdominal distention. Also complained of left lower extremity pain. liver cirrhosis/ascites: Patient currently mentating well. Less concern for hepatic encephalopathy. Will consult IR for diagnostic and therapeutic tap. Patient is on diuretics at home. Will continue for now. Gastroenterology consult. Hypokalemia: Repleted. Likely in the setting of diuretic use. Repeat levels in the morning Bilateral lower extremity cellulitis: Will keep the patient on Zosyn. Will obtain venous duplex. Will also obtain a non vascular ultrasound to rule out abscess. Id consult. A History of substance abuse: Patient on Suboxone at home. Will defer to the a.m. team to confirm the Suboxone and resume accordingly. DVT prophylaxis: SCD boots Code status: Full code
--- NOTE | 2020-08-14 01:19 | PC.NURSE ---
samir has slept for entire er visit, while in room. pt falls asleep during conversation. good respiratory effort and rate. pt asking for something to eat.
[2020-08-14] MEDS: vancomycin HCL 750 MG in 0.9 % Sodium Chloride 250 ML 265 MG IV (01:40)
--- NOTE | 2020-08-14 01:52 | PC.NURSE ---
pt given sandwich and soda, called floor for report and awaiting call back.
--- NOTE | 2020-08-14 01:57 | PC.NURSE ---
report given to rn on floor, pt ready for transport.
[2020-08-14 07:06] LABS: Basophils Percent Auto 0.8 % (0-2); Hematocrit 26.5 % (37-47); Imm Gran Abs Auto 0.01 X10*3/uL (0.00-0.03); Imm Gran Pct Auto 0.3 % (0.0-0.4); MANUAL DIFF FLAG SCAN; Mean Corpuscular Volume 95.3 fL (80-98); Red Blood Count 2.78 X10*6/uL (4.20-5.50); SCAN SMEAR FLAG 1
[2020-08-14 07:07] LABS: INTERNATIONAL NORM RATIO 2.2 (0.9-1.1)
[2020-08-14 07:08] LABS: Eosinophils Absolute Auto 0.1 X10*3/uL (0.0-0.4); Eosinophils Percent Auto 2.4 % (0-4); Hemoglobin 8.4 g/dl (12.0-16.0); Lymphocytes Absolute Auto 0.5 X10*3/uL (1.2-4.9); Lymphocytes Percent Auto 14.1 % (20-40); Mean Corpuscular HGB Conc 31.7 g/dl (31.0-35.0); Mean Corpuscular Hemoglobin 30.2 pg (27.0-33.0); Monocytes Absolute Auto 0.5 X10*3/uL (0.1-1.2); Monocytes Percent Auto 14.1 % (2-11); Neutrophils Absolute Auto 2.5 X10*3/uL (2.0-8.3); Neutrophils Percent Auto 68.3 % (45-73); Red Cell Distribution Width 22.5 % (11.0-16.0); White Blood Count 3.7 X10*3/uL (4.8-10.8)
[2020-08-14 07:19] LABS: PLT ABN DIST 1; Platelet Count 47 X10*3/uL (160-400)
[2020-08-14 07:31] LABS: Anion Gap 10 (12-20); Blood Urea Nitrogen 22 mg/dL (9-16); Calcium 7.4 mg/dL (8.4-10.2); Carbon Dioxide 21 mmol/L (22-29); Chloride 108 mmol/L (96-108); Creatinine Clr Calc Pharmacy 50.1; Estimated Glomerular Filt Rate 54; Glucose Random 129 mg/dL (60-115); Magnesium 1.9 mg/dL (1.6-2.6); Potassium 3.4 mmol/L (3.3-5.1); Sodium 136 mmol/L (135-145)
[2020-08-14 07:39] LABS: SLIDE REVIEW VERIFIED
[2020-08-14] MEDS: Furosemide 40 MG TABLET PO (08:17)
[2020-08-14] MEDS: Sertraline HCL 50 MG TABLET PO (08:17)
[2020-08-14] MEDS: Docusate Sodium 100 MG CAPSULE PO (08:17)
[2020-08-14] MEDS: Spironolactone 25 MG TABLET 100 MG PO (08:17)
[2020-08-14] MEDS: rifAXIMin 550 MG TABLET PO ×2 (08:17→21:09)
[2020-08-14] MEDS: Multivitamin TABLET 1 TAB PO (08:17)
[2020-08-14] MEDS: Omeprazole 20 MG CAPSULE.DR PO ×2 (08:17→21:09)
[2020-08-14] MEDS: 0.9 % Sodium Chloride Flush 3 ML SYRINGE IVFLUSH ×3 (08:18→21:09)
[2020-08-14 10:06] LABS: Ammonia 102 umol/L (13-55)
--- NOTE | 2020-08-14 10:48 | HO.PM.IMPN ---
Subjective Subjective Date of Service: 08/14/20 <Marjorie Cardenas NP - Last Filed: 08/14/20 14:50> 08/14/20 <Octavio Pugh MD - Last Filed: 08/14/20 17:47> Interval History: Follow up ascites, encephalopathy Feeling sleepy no pain <Marjorie Cardenas NP - Last Filed: 08/14/20 14:50> Physical Exam Vital Signs: Vital Signs: Last Vital Signs Temp 97.8 F 08/14/20 07:20 Pulse 75 08/14/20 08:17 Resp 20 08/14/20 07:20 BP 143/77 H 08/14/20 08:17 Pulse Ox 97 08/14/20 07:20 Body Mass Index 28.7 <Marjorie Cardenas NP - Last Filed: 08/14/20 14:50> Appearing in no acute distress lung sounds are clear to auscultation heart regular rate rhythm, clear S1, S2 positive bowel sounds, abdomen is soft, nontender, abd mildly distended neuro patient is alert , no focal deficits <Marjorie Cardenas NP - Last Filed: 08/14/20 14:50> Objective Data Current Medications Generic Name Dose Route Start Last Admin Trade Name Freq PRN Reason Stop Dose Admin Docusate Sodium 100 mg 08/14/20 09:00 08/14/20 08:17 Docusate Sodium 100 Mg Capsule PO 100 mg DAILY [facility] Administration Furosemide 40 mg 08/14/20 09:00 08/14/20 08:17 Furosemide 40 Mg Tablet PO 40 mg DAILY [facility] Administration Protocol Piperacillin Sod/Tazobactam 50 mls @ 100 mls/hr 08/14/20 08:00 08/14/20 08:48 Sod 3.375 gm/ Sodium Chloride IV Infused Q8H [facility] Infusion Lactulose 30 gm 08/13/20 23:45 08/14/20 08:44 Lactulose 20 Gm/30 Ml Solution PO 30 gm TID [facility] Administration Multivitamins/Vitamin C 1 tab 08/14/20 09:00 08/14/20 08:17 Multivitamin Tablet PO 1 tab DAILY [facility] Administration Omeprazole 20 mg 08/14/20 09:00 08/14/20 08:17 Omeprazole 20 Mg Capsule.Dr PO 20 mg BID [facility] Administration Rifaximin 550 mg 08/14/20 09:00 08/14/20 08:17 Rifaximin 550 Mg Tablet PO 550 mg BID [facility] Administration Sertraline HCl 50 mg 08/14/20 09:00 08/14/20 08:17 Sertraline Hcl 50 Mg Tablet PO 50 mg DAILY [facility] Administration Sodium Chloride 3 ml 08/14/20 08:00 08/14/20 08:18 0.9 % Sodium Chloride Flush 3 Ml Syringe IVFLUSH 3 ml QSHIFT [facility] Administration Spironolactone 100 mg 08/14/20 09:00 08/14/20 08:17 Spironolactone 25 Mg Tablet PO 100 mg DAILY [facility] Administration Protocol Trazodone HCl 50 mg 08/14/20 21:00 Trazodone Hcl 50 Mg Tablet PO BEDTIME [facility] <Marjorie Cardenas NP - Last Filed: 08/14/20 14:50> Labs CBC & Chem 7: : 08/14/20 06:14 08/14/20 11:46 <Marjorie Cardenas NP - Last Filed: 08/14/20 14:50> Assessment and Plan (1) Cellulitis of left leg: Status: Acute <Marjorie Cardenas NP - Last Filed: 08/14/20 14:50> Assessment and Plan: 54-year-old female with a past medical history of hep C, alcohol abuse, history of liver cirrhosis, history of ascites, anxiety, recent history of COVID-19 positive; presented to the hospital with a chief complaint of abdominal distention. Also complained of left lower extremity pain. Liver cirrhosis/ascites. No abdominal pain, mild distension - diagnostic/therapeutic paracentesis with 4L out. No SBP - Albumin post paracentesis - follow LFT - spironolactone Hepatic encephalopathy. Sleepy Ammonia 102 -Lactulose 40mg TID, 2-3 BM daily -continue rifaximin Hypokalemia. Repleted. Likely secondary to diuresis -follow BMP Bilateral lower extremity cellulitis vs venous stasis. neg venous doppler study -ID consult -Zosyn -follow cx History of substance abuse. Patient on Suboxone at home. -continue Suboxone DVT prophylaxis wit mechanical compression boots full code Attending: Dr. Joseph <Marjorie Cardenas NP - Last Filed: 08/14/20 14:50>
[2020-08-14 12:23] LABS: BF Shift QC OK YES; Lymphocyte Peritoneal Fl 3 %; Man Diluent Bkgrd OK YES; Neutrophils Peritoneal Fluid 5 %; Other Peritioneal Fl 93 %; RBC Peritoneal Fluid < 0.002 X10*6/uL; WBC Peritoneal Fluid 0.162 X10*3/uL
[2020-08-14 12:24] LABS: Glucose Random 136 mg/dL (60-115); Lactate Dehydrogenase 229 U/L (122-220); Total Protein 5.7 g/dL (6.5-8.0)
[2020-08-14 12:24] LABS: MN% 95.1 %; PMN% 4.9 %
--- NOTE | 2020-08-14 14:48 | P.EN_ITS ---
Event Note Date of Service: 08/14/20 Event Note: patient seen and examined independently agree with APC history, ph ysical, assessment, and plan 54F with abdominal pain from ascites and ams from hepatic encephaloapthy lactulose s/p 4L paracentesis no sbp - would give albumin
[2020-08-14] MEDS: Albumin Human 25 % 100 ML IV ×2 (15:04→16:52)
[2020-08-14] MEDS: Lactulose 20 GM/30 ML SOLUTION 40 GM PO ×2 (15:05→21:09)
--- NOTE | 2020-08-14 15:13 | MHC.CM.PN ---
CM ATTEMPTED TO SEE PT SEVERAL TIMES THROUGHOUT THE DAY. PT SLEEPING AND NOT EASILY ROUSED. CM WILL REVISIT TOMORROW
--- NOTE | 2020-08-14 15:49 | MHC.CM.PN ---
Addendum entered by Aurelia Kirk 08/16/20 09:12: PT COMPLETED A HCP TODAY NAMING HER SON, AISSATOU FLANAGAN ([phone]) AND HER SON, CLAUDIA ([phone]), HER PRIMARY AND ALTERNATE AGENTS RESPECTIVELY. Original Note: CM MET WITH PT WHO REPORTS SHE LIVES AT HOME WITH HER TWO ADULT CHILDREN. PT REPORTS HER SONS DO ASSIST HER WITH ADLS HOWEVER SHE DOES NOT HAVE [facility] OR VNA BECAUSE SHE IS UNWILLING TO HAVE ANYONE COME INTO HER HOME. PT REPORTS SHE DOES NOT HAVE ANY DME BUT FEELS SHE NEEDS A CANE AND RAILS IN THE BATHROOM. SHE REPORTS THE BUILDING MANAGERS WERE SUPPOSED TO HAVE THE RAILS INSTALLED BUT THEY HAVE YET TO DO SO. PT DOES NOT HAVE A HCP AND WILL CONSIDER IT BUT DOES NOT FEEL WELL ENOUGH TO DO SO TODAY. PT REPORTS HER PCP IS [facility]. CURRENT DC PLAN IS HOME WITH NO SERVICES FAMILY TO TRANSPORT
--- NOTE | 2020-08-14 15:53 | CONS_ITS ---
DATE OF SERVICE: 08/14/2020 REFERRING PHYSICIAN: Junaid Da Silva MD REASON FOR CONSULTATION: Cirrhosis and ascites. HISTORY OF PRESENT ILLNESS: The patient is a pleasant 54-year-old woman with alcoholic cirrhosis and ascites, who was admitted to the hospital after presenting to the emergency room with complaints of lower extremity pain, worse on the left with abdominal distention. Symptoms have been present for several days' prior to admission and she was reportedly on antibiotics as an outpatient. She has a history of alcoholic liver disease and hepatitis C with ascites, and previous encephalopathy/confusion. She continues to drink 3 to 4 alcoholic drinks daily by her report, and has been on lactulose at home, but does not report being compliant with this. She was evaluated in the emergency department and admitted to the hospital. She was seen today in ultrasound, where she has just undergone paracentesis of 4.1 L of clear yellow ascites fluid. Laboratory studies are pending. I am unable to access her outpatient GI records regarding any potential treatment for hepatitis C, but it does look like in the lab studies section of the EMR that she had a viral load of 5660 on November 10, 2019. PAST MEDICAL HISTORY: 1. Cirrhosis with ascites and encephalopathy on the basis of alcohol abuse and hepatitis C. Previous upper endoscopy in February 2017 showed superficial gastritis and 0 to 1+ esophageal varices. 2. Substance abuse, on Suboxone therapy. 3. COPD. 4. Respiratory failure/hypoxia. 5. Panic attacks. 6. Thrombocytopenia. CURRENT MEDICATIONS: Her current medication list is reviewed in the chart. ALLERGIES: NONE REPORTED. FAMILY HISTORY: This is reviewed and is noncontributory. SOCIAL HISTORY: Alcohol use is as above. REVIEW OF SYSTEMS: Not reliably obtainable. PHYSICAL EXAMINATION: GENERAL: A pleasant female with purple hair, lying in bed. Speech is slow and she is mildly confused. VITAL SIGNS: Stable. SKIN: Anicteric. HEENT: No scleral icterus. NECK: Without lymphadenopathy or thyromegaly. LUNGS: Clear. HEART: Regular rate and rhythm. S1 and S2. No murmur. ABDOMEN: Soft. Bowel sounds are present. There does appear to be some residual ascites. No organomegaly is palpable. EXTREMITIES: Edema of both lower extremities with changes consistent with cellulitis on the left lower extremity greater than right. LABORATORY DATA: White blood cell count of 3.7, hematocrit 26.5, and platelet count of 47,000. INR 2.2. Ammonia 102. AST 76 and ALT 40. IMPRESSION: Cirrhosis with ascites on the basis of alcohol and hepatitis C. She also appears to have some mild encephalopathy clinically, and there does appear to be mild asterixis on physical examination, suggestive of hepatic encephalopathy, which could be related to noncompliance at home. I discussed with her the need to cease alcohol use. I agree with reviewing the results of the paracentesis when they become available, to rule out spontaneous bacterial peritonitis. She has no abdominal tenderness and is already on antibiotics for her lower extremity cellulitis. I would recommend continuing lactulose and Xifaxan and following her clinically. Treatment of her hepatitis C can be addressed as an outpatient if this has not already been done. Thanks for asking me to see her. I will follow her in the hospital with you. MD SUKHDEV Wilkins/FALGUNI / [id number]
[2020-08-14 16:12] LABS: Glucose Urine UA NEG (NEG); Leukocyte Esterase Urine NEG (NEG); Nitrite Urine NEG (NEG); PH 5.5 (5.0-8.0); Urine Blood 3+ (NEG); Urine Ketones NEG (NEG); Urine Protein NEG (NEG-TRACE)
[2020-08-14 16:13] LABS: Appearance Urine CLEAR; Color Urine YELLOW
--- NOTE | 2020-08-14 16:14 | P.CNID_ITS ---
History of Present Illness Data of Consult Service Date: 08/14/20 Requesting physician: Len Colon Primary Care Provider: Unknown Physician HPI Reason for consult: leg cellulitis She presents to hospital with abdominal discomfort 08/26 She has no fever or chills now She has left leg infection and supposedly took Keflex and Doxycycline at home but compliance uncertain Review of Systems Review of Systems: Yes all other systems are reviewed and are negative PMFSH Past Medical History Medical History Acute respiratory failure with hypoxia Alcohol abuse Alcohol abuse with withdrawal Alcoholic cirrhosis of liver with ascites Anxiety Coagulopathy COPD (chronic obstructive pulmonary disease) COPD (chronic obstructive pulmonary disease) 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) Elevated rheumatoid factor Hand paresthesia Hepatitis C Hepatomegaly History of abdominal paracentesis Hyperammonemia Microhematuria Panic attacks Polysubstance abuse Thrombocytopenia Transaminitis Family History Family History Father Family history of high blood pressure Mother Alive and well Family history: reviewed and not pertinent Surgical History Surgical History History of delivery History of esophagogastroduodenoscopy (EGD) (~02/2017) Social History Social History Household Members: Children Housing: House Do you presently have visiting nurse or other home services: No Alcohol intake: current Alcohol intake frequency: 3 or more drinks per day Alcohol type: beer Patient Tobacco Use Status: Current everyday Tobacco user Tobacco use type: Cigarette Cigarettes Per Day: 4 Smoked in Last 30 Days: Yes Patient Interested in Nicotine Replacement: No Patient Given Instructions on How to Stop Smoking: Yes Date Education Initiated: 08/14/20 Second Hand Smoke Exposure: No Use of substances other than those prescribed or required for medical reasons: No Currently Displaying Signs/Symptoms of Drug Intoxication Withdrawal: No Have you been hit, kicked, punched, or otherwise hurt by someone within the past year? If so, by whom?: No Do you feel safe in your current relationship?: No Current Relationship Is there a partner from a previous relationship who is making you feel unsafe now?: No Are you made to feel afraid or neglected: No Advance Directives: No Advance Directives Information Provided: Yes Do you have thoughts of harming others: None Do you have a plan to hurt others: No Plan Recently lost weight without trying: No Nutrition Risks: No Nutritional Risk Patient : No : No Poor oral hygiene: No service: No Current occupational status: unemployed Meds Allergies Allergy/AdvReac Type Severity Reaction Status Date / Time No Known Allergies Allergy Verified 08/13/20 16:25 Active Medications: Current Medications Generic Name Dose Route Start Last Admin Trade Name Frejenelle PRN Reason Stop Dose Admin Buprenorphine/Naloxone 1 film 08/15/20 09:00 Buprenorphine/Naloxone 8/2 Mg Film BUCCAL DAILY ABBY Docusate Sodium 100 mg 08/14/20 09:00 08/14/20 08:17 Docusate Sodium 100 Mg Capsule PO 100 mg DAILY ABBY Administration Furosemide 40 mg 08/14/20 09:00 08/14/20 08:17 Furosemide 40 Mg Tablet PO 40 mg DAILY ABBY Administration Protocol Piperacillin Sod/Tazobactam 50 mls @ 100 mls/hr 08/14/20 08:00 08/14/20 08:48 Sod 3.375 gm/ Sodium Chloride IV Infused Q8H ABBY Infusion Albumin Human 100 mls @ 100 mls/hr 08/14/20 15:00 08/14/20 16:07 Kedbumin 25 % IV 08/14/20 16:59 Infused Q1H ABBY Infusion Lactulose 40 gm 08/14/20 15:00 08/14/20 15:05 Lactulose 20 Gm/30 Ml Solution PO 40 gm TID ABBY Administration Multivitamins/Vitamin C 1 tab 08/14/20 09:00 08/14/20 08:17 Multivitamin Tablet PO 1 tab DAILY ABBY Administration Omeprazole 20 mg 08/14/20 09:00 08/14/20 08:17 Omeprazole 20 Mg Capsule.Dr PO 20 mg BID ABBY Administration Rifaximin 550 mg 08/14/20 09:00 08/14/20 08:17 Rifaximin 550 Mg Tablet PO 550 mg BID ABBY Administration Sertraline HCl 50 mg 08/14/20 09:00 08/14/20 08:17 Sertraline Hcl 50 Mg Tablet PO 50 mg DAILY ABBY Administration Sodium Chloride 3 ml 08/14/20 08:00 08/14/20 08:18 0.9 % Sodium Chloride Flush 3 Ml Syringe IVFLUSH 3 ml QSHIFT [facility] Administration Spironolactone 100 mg 08/14/20 09:00 08/14/20 08:17 Spironolactone 25 Mg Tablet PO 100 mg DAILY [facility] Administration Protocol Trazodone HCl 50 mg 08/14/20 21:00 Trazodone Hcl 50 Mg Tablet PO BEDTIME [facility] Home Medications Medication Instructions Recorded Confirmed Last Taken Type buprenorphine-naloxone [Suboxone] 1 film BUCCAL DAILY 02/24/20 08/14/20 Unknown History furosemide 40 mg PO DAILY 02/24/20 08/14/20 Unknown History multivitamin 1 tab PO DAILY 02/24/20 08/14/20 Unknown History omeprazole 20 mg PO BID 02/24/20 08/14/20 Unknown History sertraline 50 mg PO DAILY 02/24/20 08/14/20 Unknown History spironolactone 100 mg PO DAILY 02/24/20 08/14/20 Unknown History trazodone 50 mg PO BEDTIME 02/24/20 08/14/20 Unknown History Combivent Respimat 1 puff INHALATION Q4H PRN 07/20/20 08/14/20 Unknown History docusate sodium [DOK] 100 mg PO DAILY 07/20/20 08/14/20 Unknown History Physical Exam Vital Signs: Vital Signs: Last Vital Signs Temp 97.6 F 08/14/20 14:59 Pulse 72 08/14/20 14:59 Resp 17 08/14/20 14:59 BP 104/60 08/14/20 14:59 Pulse Ox 97 08/14/20 14:59 Body Mass Index 28.7 Const: General: cooperative HENMT: Head: Yes normal to inspection Throat: Yes posterior oropharynx normal Resp: Effort & Inspection: normal respiratory effort Cardio: Rate: regular rate Rhythm: regular rhythm GI: Palpation (GI): Firmness to palpation present (GI) Skin: General skin exam: no rashes or lesions noted Extrem: Other: left leg scab dorsal foot ,no tinea pedis,cellulitis left leg Results Labs CBC & Chem 7: 08/14/20 06:14 08/14/20 11:46 Labs: Short CBC 08/13/20 08/13/20 08/14/20 Range/Units 16:59 22:18 06:14 WBC 3.8 L 4.0 L 3.7 L (4.8-10.8) X10*3/uL Hgb 9.4 L 9.2 L 8.4 L (12.0-16.0) g/dl Hct 29.2 L 28.8 L 26.5 L (37-47) % Plt Count 49 L 50 L 47 L (160-400) X10*3/uL BMP 08/13/20 08/13/20 08/14/20 16:59 22:18 06:14 Sodium 132 L 134 L 136 Potassium 3.1 L 2.9 L 3.4 Chloride 104 104 108 Carbon Dioxide 20 L 20 L 21 L BUN 20 H 20 H 22 H Creatinine 1.00 0.94 1.06 Calcium 7.6 L 7.7 L 7.4 L Liver Function 08/13/20 08/13/20 Range/Units 16:59 22:18 Total Bilirubin 2.1 H 2.4 H (0.0-1.0) mg/dL Direct Bilirubin 1.7 H (0.0-0.5) mg/dL AST 78 H 76 H (5-31) U/L ALT 39 H 40 H (0-31) U/L Alkaline Phosphatase 103 100 (39-117) U/L Albumin 2.1 L 2.1 L (3.5-5.0) g/dL Urine 08/14/20 Range/Units 15:54 Urine Color YELLOW Urine Appearance CLEAR Urine pH 5.5 (5.0-8.0) Ur Specific [place] 1.020 (1.005-1.025) Urine Protein NEG (NEG-TRACE) MG/DL Urine Glucose (UA) NEG (NEG) MG/DL Microbiology Microbiology Results: Microbiology 08/14/20 11:00 Abdomen - Abdominal Gram Stain - Final Assessment and Plan (1) Ascites due to alcoholic cirrhosis: Status: Acute (2) Cellulitis of left leg: Status: Acute The reason for cellulitis is scratched scab dorsum foot,immunsuppression and suspected noncompliance with Keflex and Doxycycline at home This may have been fever cause She has been seen by GI Would continue Zosyn until improvement and doesnt need any more antibiotics Await cultures (3) Pancytopenia: Status: Acute
[2020-08-14 16:19] LABS: Bacteria Urine TRACE /LPF; Squamous Epithelial Cell Urine 1+ /LPF; WBC Urine 0-2 /HPF (0-4)
[2020-08-14 16:34] LABS: Amphetamine Screen Urine Not Detected (Not Detect); Barbiturates, Urine POSITIVE (Not Detect); Benzodiazepines Screen Urine Not Detected (Not Detect); Cannabinoid Screen Urine Not Detected (Not Detect); Cocaine Screen Urine Not Detected (Not Detect); Opiate Screen Urine Not Detected (Not Detect); Phencyclidine Screen Urine Not Detected (Not Detect)
[2020-08-14] MEDS: traZODone HCL 50 MG TABLET PO (21:09)
[2020-08-15] VITALS (10 sets, daily range): BP systolic 115–154; BP diastolic 55–83; PULSE 69–76; RESP 16–20; TEMP 36.6–37.2; O2SAT 95–99
[2020-08-15] MEDS: Piperacillin Sodium/Tazobactam 3.375 GM in 0.9 % Sodium Chloride 50 ML IV ×3 (00:43→16:12)
[2020-08-15 06:32] LABS: Albumin Peritoneal Fluid <0.2
[2020-08-15 06:33] LABS: Glucose Peritoneal Fluid 142; LDH Peritoneal Fluid 33; Total Protein Peritoneal Fluid 0.5
[2020-08-15 06:34] LABS: Amylase Peritoneal Fluid 11
[2020-08-15 06:37] LABS: pH Peritoneal Fluid 7.59
[2020-08-15 06:39] LABS: Ammonia 67 umol/L (13-55)
[2020-08-15 07:10] LABS: Alanine Aminotransferase 23 U/L (0-31); Albumin Level 2.1 g/dL (3.5-5.0); Alkaline Phosphatase 69 U/L (39-117); Aspartate Amino Transferase 43 U/L (5-31); Bilirubin Direct 1.2 mg/dL (0.0-0.5); Bilirubin Total 1.5 mg/dL (0.0-1.0); Total Protein 5.5 g/dL (6.5-8.0)
[2020-08-15 07:11] LABS: INTERNATIONAL NORM RATIO 2.4 (0.9-1.1); Prothrombin Time 28.3 SEC (10.8-13.0)
[2020-08-15 07:18] LABS: Hemoglobin 7.3 g/dl (12.0-16.0)
[2020-08-15 07:20] LABS: Hematocrit 22.8 % (37-47); Mean Corpuscular Hemoglobin 30.7 pg (27.0-33.0); Mean Corpuscular Volume 95.8 fL (80-98); Red Blood Count 2.38 X10*6/uL (4.20-5.50); Red Cell Distribution Width 22.6 % (11.0-16.0); White Blood Count 2.7 X10*3/uL (4.8-10.8)
[2020-08-15 07:24] LABS: Blood Urea Nitrogen 23 mg/dL (9-16); Calcium 7.6 mg/dL (8.4-10.2); Carbon Dioxide 22 mmol/L (22-29); Creatinine Clr Calc Pharmacy 37.9; Estimated Glomerular Filt Rate 39; Glucose Random 92 mg/dL (60-115); Potassium 3.1 mmol/L (3.3-5.1); Sodium 141 mmol/L (135-145)
[2020-08-15 07:25] LABS: Anion Gap 7 (12-20); Chloride 115 mmol/L (96-108)
[2020-08-15 07:38] LABS: PLT ABN DIST 1; Platelet Count 41 X10*3/uL (160-400)
[2020-08-15] MEDS: Potassium Chloride Packet 20 MEQ PACKET 40 MEQ PO (08:28)
[2020-08-15] MEDS: Lactulose 20 GM/30 ML SOLUTION 40 GM PO (08:28)
[2020-08-15] MEDS: rifAXIMin 550 MG TABLET PO ×2 (08:29→20:31)
[2020-08-15] MEDS: 0.9 % Sodium Chloride Flush 3 ML SYRINGE IVFLUSH ×3 (08:29→20:31)
[2020-08-15] MEDS: Sertraline HCL 50 MG TABLET PO (08:29)
[2020-08-15] MEDS: Furosemide 40 MG TABLET PO (08:29)
[2020-08-15] MEDS: Omeprazole 20 MG CAPSULE.DR PO ×2 (08:29→20:30)
[2020-08-15] MEDS: Buprenorphine/Naloxone 8/2 mg FILM 1 FILM BUCCAL (08:29)
[2020-08-15] MEDS: Spironolactone 25 MG TABLET 100 MG PO (08:29)
[2020-08-15] MEDS: Multivitamin TABLET 1 TAB PO (08:29)
--- NOTE | 2020-08-15 09:20 | HO.PM.IMPN ---
Subjective Subjective Date of Service: 08/15/20 <Marjorie Cardenas NP - Last Filed: 08/15/20 09:30> 08/15/20 <Chente Lane MD - Last Filed: 08/15/20 15:49> Interval History: Follow up ascites, encephalopathy More awake today still with diarrhea from lactulose appetite better <Marjorie Cardenas NP - Last Filed: 08/15/20 09:30> Physical Exam Vital Signs: Vital Signs: Last Vital Signs Temp 99.0 F 08/15/20 07:13 Pulse 72 08/15/20 08:29 Resp 20 08/15/20 07:13 BP 116/55 L 08/15/20 08:29 Pulse Ox 96 08/15/20 07:13 Body Mass Index 28.7 <Marjorie Cardenas NP - Last Filed: 08/15/20 09:30> Appearing in no acute distress eyes pupils are PERRLA sclera is mildy icteric lung sounds are clear to auscultation heart regular rate rhythm, clear S1, S2 positive bowel sounds, abdomen is soft, nontender neuro patient is alert x3, no focal deficits <Marjorie Cardenas NP - Last Filed: 08/15/20 09:30> Objective Data Current Medications Generic Name Dose Route Start Last Admin Trade Name Leslie PRN Reason Stop Dose Admin Buprenorphine/Naloxone 1 film 08/15/20 09:00 08/15/20 08:29 Buprenorphine/Naloxone 8/2 Mg Film BUCCAL 1 film DAILY ABBY Administration Docusate Sodium 100 mg 08/14/20 09:00 08/15/20 08:31 Docusate Sodium 100 Mg Capsule PO Not Given DAILY ABBY Furosemide 40 mg 08/14/20 09:00 08/15/20 08:29 Furosemide 40 Mg Tablet PO 40 mg DAILY ABBY Administration Protocol Piperacillin Sod/Tazobactam 50 mls @ 100 mls/hr 08/14/20 08:00 08/15/20 09:03 Sod 3.375 gm/ Sodium Chloride IV Infused Q8H ABBY Infusion Lactulose 40 gm 08/14/20 15:00 08/15/20 08:28 Lactulose 20 Gm/30 Ml Solution PO 20 gm TID ABBY Administration Multivitamins/Vitamin C 1 tab 08/14/20 09:00 08/15/20 08:29 Multivitamin Tablet PO 1 tab DAILY ABBY Administration Omeprazole 20 mg 08/14/20 09:00 08/15/20 08:29 Omeprazole 20 Mg Capsule.Dr PO 20 mg BID ABBY Administration Rifaximin 550 mg 08/14/20 09:00 08/15/20 08:29 Rifaximin 550 Mg Tablet PO 550 mg BID ABBY Administration Sertraline HCl 50 mg 08/14/20 09:00 08/15/20 08:29 Sertraline Hcl 50 Mg Tablet PO 50 mg DAILY ABBY Administration Sodium Chloride 3 ml 08/14/20 08:00 08/15/20 08:29 0.9 % Sodium Chloride Flush 3 Ml Syringe IVFLUSH 3 ml QSHIFT ABBY Administration Spironolactone 100 mg 08/14/20 09:00 08/15/20 08:29 Spironolactone 25 Mg Tablet PO 100 mg DAILY ABBY Administration Protocol Trazodone HCl 50 mg 08/14/20 21:00 08/14/20 21:09 Trazodone Hcl 50 Mg Tablet PO 50 mg BEDTIME ABBY Administration <Marjorie Cardenas NP - Last Filed: 08/15/20 09:30> Labs CBC & Chem 7: : 08/15/20 06:12 08/15/20 06:12 <Marjorie Cardenas NP - Last Filed: 08/15/20 09:30> Microbiology Microbiology Results: Microbiology 08/14/20 11:00 Abdomen - Abdominal Gram Stain - Final 08/14/20 11:00 Abdomen - Abdominal Routine Culture - Preliminary No growth to date. 08/14/20 11:00 Abdomen - Abdominal Anaerobic Culture - Preliminary No growth to date. 08/13/20 22:26 Blood - Venous Blood Culture - Preliminary No growth after 24 hours. 08/13/20 22:18 Blood - Venous Blood Culture - Preliminary No growth after 24 hours. <Marjorie Cardenas NP - Last Filed: 08/15/20 09:30> Assessment and Plan (1) Ascites due to alcoholic cirrhosis: Status: Acute <Marjorie Cardenas NP - Last Filed: 08/15/20 09:30> Assessment and Plan: 54-year-old female with a past medical history of hep C, alcohol abuse, history of liver cirrhosis, history of ascites, anxiety, recent history of COVID-19 positive; presented to the hospital with a chief complaint of abdominal distention. Also complained of left lower extremity pain. Hepatic encephalopathy. Less sleepy today Ammonia 67 -decrease Lactulose to home dose of 20mg BID -continue rifaximin Anemia. Secondary to liver disease. 7.3/22.8 -check occult stool -PRBC x1 unit -GI following Coagulopathy. Secondary to liver disease -PT/INR daily -Monitor for signs of bleeding Hypokalemia. 3.1. Likely secondary to diuresis -potassium replacement -follow BMP Bilateral lower extremity cellulitis vs venous stasis. neg venous doppler study -ID consult -Zosyn -follow cx Liver cirrhosis/ascites. No abdominal pain, mild distension - diagnostic/therapeutic paracentesis with 4L out (08/14)No SBP - Albumin post paracentesis - follow LFT - spironolactone History of substance abuse. Patient on Suboxone at home. -continue Suboxone DVT prophylaxis wit mechanical compression boots full code Attending: Dr. Lane <Marjorie Cardenas NP - Last Filed: 08/15/20 09:30> Addendum to documentation by midlevel I saw and examined the patient and participated in the mckeon portion of the E/M service. I agree with finding, asssessment and plan as mentioned above. She is now lucid and no sings of encephalopathy. Her abdomen is firm and has moderate to large ascietes by exam. Recommend paracentesis tomorrow. Otherwse, I agree with assessment and plan as above. <Chente Lane MD - Last Filed: 08/15/20 15:49>
[2020-08-15 09:49] LABS: OBS Int Ctl Valid YES; OBS1 POSITIVE (NEGATIVE)
[2020-08-15] MEDS: Phytonadione (Vit K1) Oral 10 MG/ML AMPUL PO (16:44)
[2020-08-15 16:45] LABS: Mean Corpuscular Volume 96.6 fL (80-98); White Blood Count 3.2 X10*3/uL (4.8-10.8)
[2020-08-15 16:47] LABS: Hematocrit 28.3 % (37-47); Hemoglobin 8.9 g/dl (12.0-16.0); Mean Corpuscular HGB Conc 31.4 g/dl (31.0-35.0); Mean Corpuscular Hemoglobin 30.4 pg (27.0-33.0); Red Blood Count 2.93 X10*6/uL (4.20-5.50)
[2020-08-15 16:48] LABS: PLT ABN DIST 1; Platelet Count 38 X10*3/uL (160-400)
[2020-08-15] MEDS: Lactulose 20 GM/30 ML SOLUTION PO (20:30)
[2020-08-15] MEDS: traZODone HCL 50 MG TABLET PO (20:31)
[2020-08-16] MEDS: Piperacillin Sodium/Tazobactam 3.375 GM in 0.9 % Sodium Chloride 50 ML IV ×2 (00:11→07:31)
[2020-08-16 03:19] VITALS: BP 107/66; PULSE 78; RESP 17; TEMP 36.8; O2SAT 95
[2020-08-16 06:11] LABS: Hematocrit 29.7 % (37-47); Hemoglobin 9.5 g/dl (12.0-16.0); Mean Corpuscular Hemoglobin 30.7 pg (27.0-33.0); Mean Corpuscular Volume 96.1 fL (80-98); Red Blood Count 3.09 X10*6/uL (4.20-5.50); Red Cell Distribution Width 21.5 % (11.0-16.0); White Blood Count 3.3 X10*3/uL (4.8-10.8)
[2020-08-16 06:14] LABS: Anion Gap 10 (12-20); Blood Urea Nitrogen 22 mg/dL (9-16); Calcium 7.7 mg/dL (8.4-10.2); Carbon Dioxide 22 mmol/L (22-29); Chloride 110 mmol/L (96-108); Creatinine Clr Calc Pharmacy 38.8; Estimated Glomerular Filt Rate 40; Glucose Random 104 mg/dL (60-115); Potassium 3.4 mmol/L (3.3-5.1); Sodium 139 mmol/L (135-145)
[2020-08-16 06:23] LABS: INTERNATIONAL NORM RATIO 2.1 (0.9-1.1); Prothrombin Time 25.1 SEC (10.8-13.0)
[2020-08-16 06:30] LABS: PLT ABN DIST 1; Platelet Count 36 X10*3/uL (160-400)
[2020-08-16] MEDS: 0.9 % Sodium Chloride Flush 3 ML SYRINGE IVFLUSH (07:32)
[2020-08-16 07:47] VITALS: BP 121/61; PULSE 69; RESP 20; TEMP 37; O2SAT 94
[2020-08-16 08:37] VITALS: BP 121/61
[2020-08-16] MEDS: Omeprazole 20 MG CAPSULE.DR PO (08:37)
[2020-08-16] MEDS: Furosemide 40 MG TABLET PO (08:37)
[2020-08-16] MEDS: Lactulose 20 GM/30 ML SOLUTION PO (08:37)
[2020-08-16] MEDS: rifAXIMin 550 MG TABLET PO (08:37)
[2020-08-16] MEDS: Spironolactone 25 MG TABLET 100 MG PO (08:37)
[2020-08-16] MEDS: Phytonadione (Vit K1) Oral 10 MG/ML AMPUL PO (08:38)
[2020-08-16] MEDS: Multivitamin TABLET 1 TAB PO (08:38)
[2020-08-16] MEDS: Buprenorphine/Naloxone 8/2 mg FILM 1 FILM BUCCAL (08:38)
[2020-08-16] MEDS: Sertraline HCL 50 MG TABLET PO (08:38)
--- NOTE | 2020-08-16 08:57 | P.DS_ITS ---
DS: Providers Provider Date of Service: 08/16/20 <Marjorie Cardenas NP - Last Filed: 08/16/20 09:12> Date of admission: 08/14/20 00:39 <Marjorie Cardenas NP - Last Filed: 08/16/20 09:12> Date of discharge: 08/16/20 <Marjorie Cardenas NP - Last Filed: 08/16/20 09:12> Primary care physician: Unknown Physician <Marjorie Cardenas NP - Last Filed: 08/16/20 09:12> Admitting clinician: Junaid Da Silva <Marjorie Cardenas NP - Last Filed: 08/16/20 09:12> Attending physician on admission: Junaid Da Silva <Marjorie Cardenas NP - Last Filed: 08/16/20 09:12> Consults: 08/14/20 00:56 Consult to Gastroenterology Routine Consulting Provider: Jan Milan Reason for consultation: cirrhosis/ascites Consult to Infectious Diseases Routine Consulting Provider: Huyen Tripp Reason for consultation: worsening cellulitis <Marjorie Cardenas NP - Last Filed: 08/16/20 09:12> Attending physician on discharge: Cehnte Lane <Marjorie Cardenas NP - Last Filed: 08/16/20 09:12> Discharging clinician: Marjorie Cardenas <Marjorie Cardenas NP - Last Filed: 08/16/20 09:12> DS: Diagnosis Discharge Diagnosis (1) Ascites due to alcoholic cirrhosis: Status: Acute <Marjorie Cardenas NP - Last Filed: 08/16/20 09:12> (2) Acute hypokalemia: Status: Resolved <Marjorie Cardenas NP - Last Filed: 08/16/20 09:12> (3) Cellulitis of left leg: Status: Acute <Marjorie Cardenas NP - Last Filed: 08/16/20 09:12> (4) Hepatic encephalopathy: Status: Acute <Marjorie Cardenas NP - Last Filed: 08/16/20 09:12> DS: Medications Discharge Medications Home Medications: Home Medications Medication Instructions Recorded Confirmed buprenorphine-naloxone [Suboxone] 1 film BUCCAL DAILY 02/24/20 08/14/20 furosemide 40 mg PO DAILY 02/24/20 08/14/20 multivitamin 1 tab PO DAILY 02/24/20 08/14/20 omeprazole 20 mg PO BID 02/24/20 08/14/20 sertraline 50 mg PO DAILY 02/24/20 08/14/20 spironolactone 100 mg PO DAILY 02/24/20 08/14/20 trazodone 50 mg PO BEDTIME 02/24/20 08/14/20 Combivent Respimat 1 puff INHALATION Q4H PRN 07/20/20 08/14/20 docusate sodium [DOK] 100 mg PO DAILY 07/20/20 08/14/20 Previous Rx's Medication Instructions Recorded magnesium oxide 400 mg PO DAILY 30 Days #30 tab 04/16/20 dexamethasone 6 mg PO DAILY 6 Days #6 tab 07/25/20 lactulose 20 g PO BID 30 Days #1800 ml 07/25/20 rifaximin 550 mg tablet 550 mg PO BID 30 Days #60 tab 08/13/20 doxycycline hyclate 100 mg PO BID #14 tab 08/16/20 <Marjorie Cardenas NP - Last Filed: 08/16/20 09:12> DS: Summary Hospital Course Hospital Course: HP as per admitting provider 54-year-old female with a past medical history of alcohol abuse, alcoholic liver cirrhosis, ascites, history of hep C, history of substance abuse on Suboxone, COPD, anxiety, thrombocytopenia, history of abdominal paracentesis presented to the hospital with a chief complaint of bilateral lower extremity pain; more on the left lower extremity. Mentioned that she was on oral antibiotics as outpatient. Patient reports that over the past few days he has been having abdominal distention and discomfort. Denies any abdominal pain, nausea vomiting diarrhea. Denies any abdominal pain. Denies any numbness tingling. Denies any chest pain or palpitations. Denies any hematemesis or melena. Review of all other systems is negative except mentioned above ER course: For ER team patient's abdomen was distended but not tender. On labs noted to have elevated INR, low platelets, potassium of 2.9. No EKG changes given potassium supplementation. Noted to have left lower extremity erythema concern for cellulitis. Started on Zosyn. Also mentioned that patient was opiate positive about 3 weeks ago but currently negative. Denies any respiratory symptoms . Liver cirrhosis/ascites/hepatic encepahlopathy. Chronic. Had paracentesis with 4 liters of fluid removed. Encephalopathy resolved with Lactulose. Ammonia peaked at 110. Continue home dose of lactulose. Bilateral lower extremity cellulitis. Secondary to scratched scab. Prior to admission had been on Doxycycline and Keflex, it is unknown if patient was taking the medications. Admitted and placed on Zosyn. Seen and evaluated by ID. BLood cx negative x 48hrs. Home with Doxycycline for 7 days. Hypokalemia. Secondary to diuresis. Resolved with repletion. Anemia/coagulopathy. Secondary to chronic liver disease. Received one unit PRBC while inpatient, no bleeding noted. INR peaked at 2.4, received vit K 10mg x days. I have seen and evaluated this patient. I have discussed the case and its management with the AUTOMOBILE DAMAGE FIELD APPRAISER and I agree with the findings and plan as documented in the AUTOMOBILE DAMAGE FIELD APPRAISER?s note. <Marjorie Cardenas NP - Last Filed: 08/16/20 09:12> Time Spent with Patient Time attestation: Total time spent providing and/or coordinating discharge services: <Marjorie Cardenas NP - Last Filed: 08/16/20 09:12> Discharge coordination time: Greater than 30 minutes <Marjorie Cardenas NP - Last Filed: 08/16/20 09:12> Quality: Stroke Does the patient have a stroke diagnosis?: No <Marjorie Cardenas NP - Last Filed: 08/16/20 09:12> Physical Exam Vital Signs: Vital Signs: Last Vital Signs Temp 98.6 F 08/16/20 07:47 Pulse 69 08/16/20 07:47 Resp 20 08/16/20 07:47 BP 121/61 08/16/20 08:37 Pulse Ox 94 08/16/20 07:47 Body Mass Index 28.7 <Marjorie Cardenas NP - Last Filed: 08/16/20 09:12> Appearing in no acute distress head is normocephalic atraumatic eyes pupils are PERRLA sclera is anicteric mouth throat mucous membranes are intact and moist, poor dentician lung sounds are clear to auscultation heart regular rate rhythm, clear S1, S2 positive bowel sounds, abdomen is soft, nontender neuro patient is alert x3, no focal deficits Bilateral lower extremity erythema improving, no drainge <Marjorie Cardenas NP - Last Filed: 08/16/20 09:12> DS: Data Data Completed and Pending Completed studies during hospitalization [Text1]: Procedures Detoxification Services for Substance Abuse Treatment (07/20/20) Drainage of Peritoneal Cavity, Percutaneous Approach (07/20/20) Transfusion of Nonautologous Platelets into Peripheral Vein, Percutaneous Approach (07/20/20) <Marjorie Cardenas NP - Last Filed: 08/16/20 09:12> Pending studies at discharge: Pending at discharge 08/14/20 10:37 Cytology [PTH] Stat <Marjorie Cardenas NP - Last Filed: 08/16/20 09:12> Labs on day of discharge: Laboratory Results - last 24 hr 08/15/20 08/15/20 08/15/20 08:23 09:23 16:38 WBC 3.2 L RBC 2.93 L D Hgb 8.9 L D Hct 28.3 L D MCV 96.6 MCH 30.4 MCHC 31.4 RDW 21.0 H Plt Count 38 L MPV Not Reportable Absolute Nucleated RBC 0.000 Nucleated RBC % (auto) 0.0 PT INR Sodium Potassium Chloride Carbon Dioxide Anion Gap BUN Creatinine Estim Creat Clear Calc Estimated GFR Random Glucose Calcium Stool Occult Blood POSITIVE Blood Type O Positive Antibody Screen NEGATIVE Crossmatch See Detail 08/16/20 08/16/20 08/16/20 05:24 05:24 05:24 WBC 3.3 L RBC 3.09 L Hgb 9.5 L Hct 29.7 L MCV 96.1 MCH 30.7 MCHC 32.0 RDW 21.5 H Plt Count 36 L MPV Not Reportable Absolute Nucleated RBC 0.000 Nucleated RBC % (auto) 0.0 PT 25.1 H INR 2.1 H Sodium 139 Potassium 3.4 Chloride 110 H Carbon Dioxide 22 Anion Gap 10 L BUN 22 H Creatinine 1.37 Estim Creat Clear Calc 38.8 Estimated GFR 40 Random Glucose 104 Calcium 7.7 L Stool Occult Blood Blood Type Antibody Screen Crossmatch Preliminary micro results at discharge 08/14/20 11:00 Anaerobic Culture - Preliminary Abdomen - Abdominal No growth to date. 08/13/20 22:26 Blood Culture - Preliminary Blood - Venous No growth after 48 hours. 08/13/20 22:18 Blood Culture - Preliminary Blood - Venous No growth after 48 hours. <Marjorie Cardenas NP - Last Filed: 08/16/20 09:12> Discharge Plan Discharge Anticipated Discharge Date/Time: 08/16/20 08:37 <Marjorie Cardenas NP - Last Filed: 08/16/20 09:12> Patient Disposition: Home, Self-Care <Marjorie Cardenas NP - Last Filed: 08/16/20 09:12> Discharge Diagnosis: Hepatic encephalopathy Anemia Hypokalemia Bilateral lower extremity cellulitis Liver cirrhosis/ascites <Marjorie Cardenas NP - Last Filed: 08/16/20 09:12> Hepatic encephalopathy Anemia Hypokalemia Bilateral lower extremity cellulitis Liver cirrhosis/ascites <Chente Lane MD - Last Filed: 08/17/20 17:44> Referrals: Physician,Unknown [Primary Care Provider] - 1 Week <Marjorie Cardenas NP - Last Filed: 08/16/20 09:12> Discharge Medications: New doxycycline hyclate 100 mg tablet 100 mg PO BID Qty: 14 RF: 0 Continued magnesium oxide 400 mg magnesium tablet 400 mg PO DAILY 30 Days Qty: 30 RF: 3 Xifaxan 550 mg tablet 550 mg PO BID 30 Days Qty: 60 RF: 1 docusate sodium [DOK] 100 mg capsule 100 mg PO DAILY RF: 0 Combivent Respimat 20-100 mcg/actuation Mist 1 puff INHALATION Q4H PRN (Reason: Shortness Of Breath) RF: 0 dexamethasone 6 mg tablet 6 mg PO DAILY 6 Days Qty: 6 RF: 0 lactulose 20 gram/30 mL solution 20 g PO BID 30 Days Qty: 1800 RF: 0 multivitamin Tablet 1 tab PO DAILY RF: 0 trazodone 50 mg Tablet 50 mg PO BEDTIME RF: 0 omeprazole 20 mg Capsule,Delayed Release(Dr/Ec) 20 mg PO BID RF: 0 sertraline 50 mg Tablet 50 mg PO DAILY RF: 0 buprenorphine-naloxone [Suboxone] 8-2 mg Film 1 film BUCCAL DAILY RF: 0 furosemide 40 mg Tablet 40 mg PO DAILY RF: 0 spironolactone 25 mg Tablet 100 mg PO DAILY RF: 0 Discontinued doxycycline hyclate 100 mg capsule 100 mg PO BID Qty: 20 RF: 0 <Marjorie Cardenas NP - Last Filed: 08/16/20 09:12> Discharge Orders: Discharge Order (Routine); Ordered 08/16/20 Ordered By: Marjorie Cardenas <Marjorie Cardenas NP - Last Filed: 08/16/20 09:12> Diet: advance to usual diet <Marjorie Cardenas NP - Last Filed: 08/16/20 09:12> advance to usual diet <Chente Lane MD - Last Filed: 08/17/20 17:44> Activity on Discharge: As tolerated <Marjorie Cardenas NP - Last Filed: 08/16/20 09:12> As tolerated <Chente Lane MD - Last Filed: 08/17/20 17:44> Stand Alone Forms: Patient Portal Discharge page <Marjorie Cardenas NP - Last Filed: 08/16/20 09:12> Care Plan Goals: Resolution of cellulitis symptoms Stability of cirrhosis/ascites <Marjorie Cardenas NP - Last Filed: 08/16/20 09:12> Health Concerns: Hepatic encephalopathy Anemia Hypokalemia Bilateral lower extremity cellulitis Liver cirrhosis/ascites <Marjorie Cardenas NP - Last Filed: 08/16/20 09:12> Plan of Treatment: Follow-up with her primary care doctor as needed If you developed abdominal pain, fever or abdominal distension return to the ER for possible drainage of abdominal fluid Continue prescription for lower extremity cellulitis <Marjorie Cadrenas NP - Last Filed: 08/16/20 09:12> Assessment: See discharge summary <Marjorie Cardenas NP - Last Filed: 08/16/20 09:12> Discharge Date/Time: 08/16/20 12:52 <Marjorie Cardenas NP - Last Filed: 08/16/20 09:12>
--- NOTE | 2020-08-16 09:14 | MHC.CM.PN ---
PT IS BEING DISCHARGED HOME TODAY WITH NO SERVICES. SHE REPORTS HER SON WILL PICK HER UP AT 1200 HOURS
== END 2020-08-16 12:52 | disposition home or self-care (01) | DRG 279 ==
LOC: HO.ED 23:42 → HO.IMC 08-14 01:00
PROVIDERS: Nurse Practitioner Acute Care; Admitting Provider Hospitalist; Emergency Provider Emergency Medicine; Visit Provider Internal Medicine
DX: K72.90 Hepatic failure, unspecified without coma (principal); D68.9 Coagulation defect, unspecified; D69.6 Thrombocytopenia, unspecified; F11.20 Opioid dependence, uncomplicated; L03.115 Cellulitis of right lower limb; L03.116 Cellulitis of left lower limb; K70.31 Alcoholic cirrhosis of liver with ascites; E87.6 Hypokalemia; F17.210 Nicotine dependence, cigarettes, uncomplicated; Z71.6 Tobacco abuse counseling; Z86.19 Personal history of other infectious and parasitic diseases; J44.9 Chronic obstructive pulmonary disease, unspecified; D63.8 Anemia in other chronic diseases classified elsewhere; F41.0 Panic disorder [episodic paroxysmal anxiety]; Z86.16 Personal history of COVID-19; Z91.14 Patient's other noncompliance with medication regimen; Z20.822 Contact with and (suspected) exposure to COVID-19; Z79.899 Other long term (current) drug therapy
CPT/HCPCS: 36415; 49083; 80048; 80053; 80076; 80307; 81001; 82042; 82077; 82140; 82150; 82272; 82945; 82947; 83605; 83615; 83690; 83735; 83880; 83986; 84155; 84157; 85025; 85027; 85610; 86850; 86900; 86901; 86923; 87040; 87071; 87073; 87205; 87635; 88112; 89051; 93970; 96365; 96368; 99284; 99291; J2543; J3370; J3430; P9016; P9047

== ENCOUNTER 2020-09-08 16:33 | Emergency (ER) | payer MEDICAID, SELFPAY ==
[2020-09-08 17:15] VITALS: BP 153/85; PULSE 82; RESP 16; TEMP 36.6; O2SAT 98; BMI 24.4
== END 2020-09-08 17:15 | disposition left against medical advice (07) ==
PROVIDERS: Emergency Provider Emergency Medicine; PCP Family Medicine
DX: L03.311 Cellulitis of abdominal wall (principal)
CPT/HCPCS: 99281; 99282

== ENCOUNTER 2020-09-09 13:44 | Emergency (ER) | payer MEDICAID, SELFPAY ==
[2020-09-09 14:47] VITALS: BP 133/78; PULSE 79; RESP 18; TEMP 36.7; O2SAT 96; BMI 24.4
[2020-09-09 16:07] VITALS: BP 133/78; PULSE 79; RESP 18; TEMP 36.7; O2SAT 96
[2020-09-09 19:04] LABS: MANUAL DIFF FLAG NO
[2020-09-09 19:05] LABS: Basophils Percent Auto 0.8 % (0-2); Eosinophils Absolute Auto 0.1 X10*3/uL (0.0-0.4); Eosinophils Percent Auto 2.3 % (0-4); Hematocrit 25.9 % (37-47); Hemoglobin 8.5 g/dl (12.0-16.0); Imm Gran Abs Auto 0.02 X10*3/uL (0.00-0.03); Imm Gran Pct Auto 0.6 % (0.0-0.4); Lymphocytes Absolute Auto 0.7 X10*3/uL (1.2-4.9); Lymphocytes Percent Auto 19.5 % (20-40); Mean Corpuscular HGB Conc 32.8 g/dl (31.0-35.0); Mean Corpuscular Hemoglobin 31.5 pg (27.0-33.0); Mean Corpuscular Volume 95.9 fL (80-98); Mean Platelet Volume 10.5 fL (9.4-12.3); Monocytes Absolute Auto 0.5 X10*3/uL (0.1-1.2); Monocytes Percent Auto 13.9 % (2-11); Neutrophils Absolute Auto 2.2 X10*3/uL (2.0-8.3); Neutrophils Percent Auto 62.9 % (45-73); Red Cell Distribution Width 19.9 % (11.0-16.0); White Blood Count 3.5 X10*3/uL (4.8-10.8)
[2020-09-09 19:06] LABS: Glucose Urine UA NEG (NEG); Leukocyte Esterase Urine NEG (NEG); Nitrite Urine NEG (NEG); Urine Blood 3+ (NEG); Urine Ketones NEG (NEG); Urine Protein NEG (NEG-TRACE)
[2020-09-09 19:07] LABS: Appearance Urine CLEAR; Color Urine YELLOW
[2020-09-09 19:08] LABS: Platelet Count 60 X10*3/uL (160-400)
[2020-09-09 19:11] VITALS: BP 132/70; PULSE 82; RESP 16; O2SAT 90
[2020-09-09 19:11] LABS: INTERNATIONAL NORM RATIO 1.9 (0.9-1.1); Prothrombin Time 22.7 SEC (10.8-13.0)
[2020-09-09 19:12] LABS: Bacteria Urine 1+ /LPF; RBC Urine 30-49 /HPF (0); Squamous Epithelial Cell Urine 1+ /LPF; WBC Urine 0 /HPF (0-4)
[2020-09-09 19:13] LABS: Partial Thromboplastin Time 36.3 SEC (24.1-38.0)
[2020-09-09] MEDS: 0.9 % Sodium Chloride 500 ML IV (19:13)
[2020-09-09 19:24] LABS: Lactic Acid 1.1 mmol/L (0.5-2.0)
[2020-09-09 19:25] LABS: Ethanol < 10 mg/dL
[2020-09-09 19:30] LABS: Alanine Aminotransferase 15 U/L (0-31); Albumin Level 2.1 g/dL (3.5-5.0); Alkaline Phosphatase 125 U/L (39-117); Anion Gap 9 (12-20); Aspartate Amino Transferase 39 U/L (5-31); Bilirubin Total 2.2 mg/dL (0.0-1.0); Blood Urea Nitrogen 12 mg/dL (9-16); Calcium 8.1 mg/dL (8.4-10.2); Carbon Dioxide 29 mmol/L (22-29); Chloride 102 mmol/L (96-108); Creatinine Clr Calc Pharmacy 56.4; Estimated Glomerular Filt Rate > 60; Glucose Random 82 mg/dL (60-115); Potassium 3.4 mmol/L (3.3-5.1); Sodium 137 mmol/L (135-145)
[2020-09-09 19:44] VITALS: BP 135/76; PULSE 84; RESP 16; O2SAT 94
--- NOTE | 2020-09-09 20:02 | ED_ITS ---
HPI - Abdominal Pain General Chief Complaint: Abdominal Pain Stated Complaint: drain belly Time Seen by Provider: 09/09/20 17:20 Source: patient Mode of arrival: ambulatory Limitations: no limitations History of Present Illness HPI narrative: Mrs. Ashley is a 54-year-old female unfortunately she has a extensive past medical history this stems from alcohol abuse and alcoholic liver cirrhosis as well as history of hepatitis C with abdominal ascites as well as history of substance abuse on Suboxone, COPD, anxiety, thrombocytopenia, anxiety disorder, prior admission to this facility for respiratory failure with hypoxia Today she presents today with complaint of ?I need belly drained? States she has noted abdominal distension progressively worsening and worse over the past 2 days and has had paracentesis in the past and feels like she is due to have her abdomen drained. She states to me that she is post see specialist but missed the appointment. She is noted to be followed by GI here and has had admissions to this facility in the recent past. Including admission for respiratory failure with hypoxia also bilateral lower extremity cellulitis which she reports that legs are feeling much better. Denies any complaint of fever, shortness of breath, chest pain, headache, lower extremity swelling or redness. There is no associated nausea vomiting or diarrhea. States last bowel movement was this morning and ?normal? Onset (ago): day(s) Pain Consistency: intermittent Location: diffuse Severity: moderate Radiation: none Migration to: no migration Associated symptoms: denies other symptoms Related Data Home Medications Medication Instructions Recorded Confirmed buprenorphine-naloxone [Suboxone] 1 film BUCCAL DAILY 02/24/20 08/14/20 furosemide 40 mg PO DAILY 02/24/20 08/14/20 multivitamin 1 tab PO DAILY 02/24/20 08/14/20 omeprazole 20 mg PO BID 02/24/20 08/14/20 sertraline 50 mg PO DAILY 02/24/20 08/14/20 spironolactone 100 mg PO DAILY 02/24/20 08/14/20 trazodone 50 mg PO BEDTIME 02/24/20 08/14/20 Combivent Respimat 1 puff INHALATION Q4H PRN 07/20/20 08/14/20 docusate sodium [DOK] 100 mg PO DAILY 07/20/20 08/14/20 Previous Rx's Medication Instructions Recorded dexamethasone 6 mg PO DAILY 6 Days #6 tab 07/25/20 lactulose 20 g PO BID 30 Days #1800 ml 07/25/20 rifaximin 550 mg tablet 550 mg PO BID 30 Days #60 tab 08/13/20 doxycycline hyclate 100 mg PO BID #14 tab 08/16/20 magnesium oxide 400 mg PO DAILY 30 Days #30 tab 08/25/20 Allergies Allergy/AdvReac Type Severity Reaction Status Date / Time No Known Allergies Allergy Verified 09/09/20 14:44 Review of Systems Review of Systems Constitutional: No Weight loss, No Fever, No Chills, No Night Sweats, No Fatigue, No Malaise ENT/Mouth: No Hearing loss, No Ear Pain, No Nasal Congestion, No Sinus Pain, No Hoarseness, No sore throat, No Rhinorrhea, No Swallowing Difficulty Eyes: No Eye Pain, No Swelling, No Redness, No Foreign Body, No Discharge, No Vision Changes Cardiovascular: No Chest Pain, No SOB, No Dyspnea on Exertion, No Orthopnea, No Edema, No Palpitations Respiratory: No Cough, No Sputum, No Wheezing, No Smoke Exposure, No Dyspnea Gastrointestinal: No Nausea, No Vomiting, No Diarrhea, No Constipation, + abdominal Pain/distension, No Hematochezia, No Melena Genitourinary: no irregular bleeding, No Dysuria, No Urinary Frequency, No Hematuria, No Urinary Incontinence, No Urgency, No Flank Pain, No Urinary Flow Changes, No Hesitancy Musculoskeletal: No joint pain, No Myalgias, No Joint Swelling Skin: No Skin Lesions, No rash Neuro: No Weakness, No Numbness, No Paresthesias, No Loss of Consciousness, No Dizziness, No Headache Psych: No Social Issues Heme/Lymph: No Bruising, No Bleeding,No Lymphadenopathy Endocrine: No Polyuria, No Polydipsia, No Temperature Intolerance Yes all other systems are reviewed and are negative Physical Exam Vital Signs: Vital Signs: Last Vital Signs Temp 98.3 F 09/09/20 22:20 Pulse 87 09/09/20 22:20 Resp 14 09/09/20 22:20 BP 121/65 09/09/20 22:20 Pulse Ox 96 09/09/20 22:20 Body Mass Index 24.4 Reviewed Const: General: cooperative; No acute distress or intoxicated appearing Nutritional Appearance: average body habitus Orientation/consciousness: patient oriented x3 HENMT: Head: Yes normal to inspection Ears: hearing grossly normal bilaterally Eyes: General: appearance normal, both eyes and all related structures Visual Chavis: normal visual chavis by confrontation Neck: Neck: Yes normal visual inspection, No positive Brudzinski's sign, No positive Kernig's sign and No tender Thyroid: Thyroid normal Chest: Chest palpation & inspection: normal inspection of the chest Resp: Effort & Inspection: normal respiratory effort Auscultation: clear to auscultation bilaterally Cardio: Jugular venous distension: no JVD Rhythm: regular rhythm Heart sounds: S1 normal heart sound present and S2 normal heart sound present GI: Inspection: Yes normal to inspection Palpation (GI): Ascites present and No Rebound tenderness present Percussion: Yes normal to percussion Auscultation: normal bowel sounds : General: Yes no CVA tenderness Back/Spine/Pelvis: Back: no CVA tenderness Skin: General skin exam: no rashes or lesions noted Neuro: General: patient oriented x3 Extrem: General: Yes normal to inspection Procedures Paracentesis Time Out Performed: Yes Local Anesthetic: lidocaine 1% Amount of anesthesia used (mL): 3 Fluid: clear, other (Three bottles drained, , blood pressure was checked Q 10 minutes tolerated very well. No complications. No bleeding. No evidence of peritonitis.) and sent to lab for analysis Post Procedure Exam: awake, alert Patient Tolerated Procedure: well and no complications Complications: none Course Course Course Narrative: With above history presenting with complaint of abdominal distension the setting of alcoholic liver cirrhosis with ascites, history of hepatitis chronic thrombocytopenia she otherwise denies any complaints of pain or fever. Exam does not suggest SBP. She is otherwise well nontoxic appearing. Abdomen is distended she does not have any associated shortness of breath. Given her labs case was discussed with hospitalist for admission however patient declined. Subsequently I pursued bedside ultrasound of the abdomen with ult rasound-guided paracentesis which was done successfully and removed 3 L of fluid. Patient received albumin and labs reviewed with her. She feels comfortable feels much better after procedure. Requesting be discharged. She sees gastroenterology within the system here she will follow-up closely. MDM - Abdominal Pain Lab Data Result diagrams: 09/09/20 18:47 09/09/20 18:47 Labs: Lab Results 09/09/20 09/09/20 09/09/20 Range/Units 18:46 18:47 18:47 WBC 3.5 L (4.8-10.8) X10*3/uL RBC 2.70 L (4.20-5.50) X10*6/uL Hgb 8.5 L (12.0-16.0) g/dl Hct 25.9 L (37-47) % MCV 95.9 (80-98) fL MCH 31.5 (27.0-33.0) pg MCHC 32.8 (31.0-35.0) g/dl RDW 19.9 H (11.0-16.0) % Plt Count 60 L D (160-400) X10*3/uL MPV 10.5 (9.4-12.3) fL Immature Gran % (Auto) 0.6 H (0.0-0.4) % Neut % (Auto) 62.9 (45-73) % Lymph % (Auto) 19.5 L (20-40) % [place] % (Auto) 13.9 H (2-11) % Eos % (Auto) 2.3 (0-4) % Baso % (Auto) 0.8 (0-2) % Lymph # (Auto) 0.7 L (1.2-4.9) X10*3/uL [place] # (Auto) 0.5 (0.1-1.2) X10*3/uL Eos # (Auto) 0.1 (0.0-0.4) X10*3/uL Baso # (Auto) 0.0 (0.0-0.2) X10*3/uL Abs Immat Gran (auto) 0.02 (0.00-0.03) X10*3/uL Absolute Neuts (auto) 2.2 (2.0-8.3) X10*3/uL Absolute Nucleated RBC 0.000 (0.0-0.012) X10*3/uL Nucleated RBC % (auto) 0.0 (0.0-0.2) /100WBC PT (10.8-13.0) SEC INR (0.9-1.1) APTT (24.1-38.0) SEC Sodium 137 (135-145) mmol/L Potassium 3.4 (3.3-5.1) mmol/L Chloride 102 (96-108) mmol/L Carbon Dioxide 29 (22-29) mmol/L Anion Gap 9 L (12-20) BUN 12 (9-16) mg/dL Creatinine 0.87 (0.5-1.4) mg/dL Estim Creat Clear Calc 56.4 Estimated GFR > 60 Random Glucose 82 (60-115) mg/dL Lactic Acid 1.1 (0.5-2.0) mmol/L Calcium 8.1 L (8.4-10.2) mg/dL Total Bilirubin 2.2 H (0.0-1.0) mg/dL AST 39 H (5-31) U/L ALT 15 (0-31) U/L Alkaline Phosphatase 125 H D (39-117) U/L Total Protein 7.0 D (6.5-8.0) g/dL Albumin 2.1 L (3.5-5.0) g/dL Urine Color Urine Appearance Urine pH (5.0-8.0) Ur Specific [place] (1.005-1.025) Urine Protein (NEG-TRACE) MG/DL Urine Glucose (UA) (NEG) MG/DL Urine Ketones (NEG) MG/DL Urine Blood (NEG) Urine Nitrite (NEG) Ur Leukocyte Esterase (NEG) Urine RBC (0) /HPF Urine WBC (0-4) /HPF Ur Squamous Epith Cells /LPF Urine Bacteria /LPF Peritoneal WBC X10*3/uL Peritoneal RBC X10*6/uL Periton Neutrophils % Periton Lymphocytes % Peritoneal Monocytes % Peritoneal Other Cells % Ethyl Alcohol mg/dL 09/09/20 09/09/20 09/09/20 Range/Units 18:47 18:48 18:52 WBC (4.8-10.8) X10*3/uL RBC (4.20-5.50) X10*6/uL Hgb (12.0-16.0) g/dl Hct (37-47) % MCV (80-98) fL MCH (27.0-33.0) pg MCHC (31.0-35.0) g/dl RDW (11.0-16.0) % Plt Count (160-400) X10*3/uL MPV (9.4-12.3) fL Immature Gran % (Auto) (0.0-0.4) % Neut % (Auto) (45-73) % Lymph % (Auto) (20-40) % [place] % (Auto) (2-11) % Eos % (Auto) (0-4) % Baso % (Auto) (0-2) % Lymph # (Auto) (1.2-4.9) X10*3/uL [place] # (Auto) (0.1-1.2) X10*3/uL Eos # (Auto) (0.0-0.4) X10*3/uL Baso # (Auto) (0.0-0.2) X10*3/uL Abs Immat Gran (auto) (0.00-0.03) X10*3/uL Absolute Neuts (auto) (2.0-8.3) X10*3/uL Absolute Nucleated RBC (0.0-0.012) X10*3/uL Nucleated RBC % (auto) (0.0-0.2) /100WBC PT 22.7 H (10.8-13.0) SEC INR 1.9 H (0.9-1.1) APTT 36.3 (24.1-38.0) SEC Sodium (135-145) mmol/L Potassium (3.3-5.1) mmol/L Chloride (96-108) mmol/L Carbon Dioxide (22-29) mmol/L Anion Gap (12-20) BUN (9-16) mg/dL Creatinine (0.5-1.4) mg/dL Estim Creat Clear Calc Estimated GFR Random Glucose (60-115) mg/dL Lactic Acid (0.5-2.0) mmol/L Calcium (8.4-10.2) mg/dL Total Bilirubin (0.0-1.0) mg/dL AST (5-31) U/L ALT (0-31) U/L Alkaline Phosphatase (39-117) U/L Total Protein (6.5-8.0) g/dL Albumin (3.5-5.0) g/dL Urine Color YELLOW Urine Appearance CLEAR Urine pH 6.0 (5.0-8.0) Ur Specific [place] 1.010 (1.005-1.025) Urine Protein NEG (NEG-TRACE) MG/DL Urine Glucose (UA) NEG (NEG) MG/DL Urine Ketones NEG (NEG) MG/DL Urine Blood 3+ H (NEG) Urine Nitrite NEG (NEG) Ur Leukocyte Esterase NEG (NEG) Urine RBC 30-49 H (0) /HPF Urine WBC 0 (0-4) /HPF Ur Squamous Epith Cells 1+ /LPF Urine Bacteria 1+ /LPF Peritoneal WBC X10*3/uL Peritoneal RBC X10*6/uL Periton Neutrophils % Periton Lymphocytes % Peritoneal Monocytes % Peritoneal Other Cells % Ethyl Alcohol < 10 mg/dL 09/09/20 Range/Units 21:20 WBC (4.8-10.8) X10*3/uL RBC (4.20-5.50) X10*6/uL Hgb (12.0-16.0) g/dl Hct (37-47) % MCV (80-98) fL MCH (27.0-33.0) pg MCHC (31.0-35.0) g/dl RDW (11.0-16.0) % Plt Count (160-400) X10*3/uL MPV (9.4-12.3) fL Immature Gran % (Auto) (0.0-0.4) % Neut % (Auto) (45-73) % Lymph % (Auto) (20-40) % [place] % (Auto) (2-11) % Eos % (Auto) (0-4) % Baso % (Auto) (0-2) % Lymph # (Auto) (1.2-4.9) X10*3/uL [place] # (Auto) (0.1-1.2) X10*3/uL Eos # (Auto) (0.0-0.4) X10*3/uL Baso # (Auto) (0.0-0.2) X10*3/uL Abs Immat Gran (auto) (0.00-0.03) X10*3/uL Absolute Neuts (auto) (2.0-8.3) X10*3/uL Absolute Nucleated RBC (0.0-0.012) X10*3/uL Nucleated RBC % (auto) (0.0-0.2) /100WBC PT (10.8-13.0) SEC INR (0.9-1.1) APTT (24.1-38.0) SEC Sodium (135-145) mmol/L Potassium (3.3-5.1) mmol/L Chloride (96-108) mmol/L Carbon Dioxide (22-29) mmol/L Anion Gap (12-20) BUN (9-16) mg/dL Creatinine (0.5-1.4) mg/dL Estim Creat Clear Calc Estimated GFR Random Glucose (60-115) mg/dL Lactic Acid (0.5-2.0) mmol/L Calcium (8.4-10.2) mg/dL Total Bilirubin (0.0-1.0) mg/dL AST (5-31) U/L ALT (0-31) U/L Alkaline Phosphatase (39-117) U/L Total Protein (6.5-8.0) g/dL Albumin (3.5-5.0) g/dL Urine Color Urine Appearance Urine pH (5.0-8.0) Ur Specific [place] (1.005-1.025) Urine Protein (NEG-TRACE) MG/DL Urine Glucose (UA) (NEG) MG/DL Urine Ketones (NEG) MG/DL Urine Blood (NEG) Urine Nitrite (NEG) Ur Leukocyte Esterase (NEG) Urine RBC (0) /HPF Urine WBC (0-4) /HPF Ur Squamous Epith Cells /LPF Urine Bacteria /LPF Peritoneal WBC 0.287 X10*3/uL Peritoneal RBC < 0.002 X10*6/uL Periton Neutrophils 9 % Periton Lymphocytes 7 % Peritoneal Monocytes 76 % Peritoneal Other Cells 8 % Ethyl Alcohol mg/dL Discharge Plan Discharge Clinical Impression: Alcoholic cirrhosis of liver with ascites, S/P abdominal paracentesis Patient Disposition: Home, Self-Care Instructions: Cirrhosis (ED), Ascites (ED), Paracentesis (DC) Additional Instructions: Please take medication as prescribed Please to not use any illicit drugs Please to not drink any alcohol Please follow-up with your primary care doctor as discussed Please follow-up with your excel analyst as discussed Thank you Prescriptions: No Action Xifaxan 550 mg tablet 550 mg PO BID 30 Days Qty: 60 RF: 1 magnesium oxide 400 mg magnesium tablet 400 mg PO DAILY 30 Days Qty: 30 RF: 3 docusate sodium [DOK] 100 mg capsule 100 mg PO DAILY RF: 0 Combivent Respimat 20-100 mcg/actuation Mist 1 puff INHALATION Q4H PRN (Reason: Shortness Of Breath) RF: 0 dexamethasone 6 mg tablet 6 mg PO DAILY 6 Days Qty: 6 RF: 0 lactulose 20 gram/30 mL solution 20 g PO BID 30 Days Qty: 1800 RF: 0 doxycycline hyclate 100 mg tablet 100 mg PO BID Qty: 14 RF: 0 multivitamin Tablet 1 tab PO DAILY RF: 0 trazodone 50 mg Tablet 50 mg PO BEDTIME RF: 0 omeprazole 20 mg Capsule,Delayed Release(Dr/Ec) 20 mg PO BID RF: 0 sertraline 50 mg Tablet 50 mg PO DAILY RF: 0 buprenorphine-naloxone [Suboxone] 8-2 mg Film 1 film BUCCAL DAILY RF: 0 furosemide 40 mg Tablet 40 mg PO DAILY RF: 0 spironolactone 25 mg Tablet 100 mg PO DAILY RF: 0 Referrals: [facility] [Primary Care Provider] - 3 days Interventions: ED Discharge Assessment Last Done: 09/09/20 23:47 Discharge Date/Time: 09/09/20 23:47 [facility] Past Medical History Medical History Acute respiratory failure with hypoxia Alcohol abuse Alcohol abuse with withdrawal Alcoholic cirrhosis of liver with ascites Anxiety Coagulopathy COPD (chronic obstructive pulmonary disease) COPD (chronic obstructive pulmonary disease) 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) Elevated rheumatoid factor Hand paresthesia Hepatitis C Hepatomegaly History of abdominal paracentesis Hyperammonemia Microhematuria Panic attacks Polysubstance abuse Thrombocytopenia Transaminitis Surgical History History of delivery History of esophagogastroduodenoscopy (EGD) (~02/2017) Family History Family History Father Family history of high blood pressure Mother Alive and well Social History Social History Household Members: Children Housing: House Do you presently have visiting nurse or other home services: No Alcohol intake: current Alcohol intake frequency: 3 or more drinks per day Alcohol type: beer Patient Tobacco Use Status: Current everyday Tobacco user Tobacco use type: Cigarette Cigarettes Per Day: 4 Second Hand Smoke Exposure: No Use of substances other than those prescribed or required for medical reasons: No Advance Directives: No Advance Directives Information Provided: No Patient : No service: No Current occupational status: unemployed
--- NOTE | 2020-09-09 21:38 | PC.NURSE ---
During the paracentesis 2800mL of fluid was drained from the patient's abdomen, fluid samples were sent to the lab for testing.
[2020-09-09 21:41] LABS: MN% 84.6 %; PMN% 15.4 %; WBC Peritoneal Fluid 0.287 X10*3/uL
[2020-09-09 21:57] LABS: RBC Peritoneal Fluid < 0.002 X10*6/uL
[2020-09-09 21:58] LABS: BF Shift QC OK YES; Man Diluent Bkgrd OK YES
[2020-09-09] MEDS: Albumin Human 25 % 50 ML 100 ML IV (22:05)
[2020-09-09 22:20] VITALS: BP 121/65; PULSE 87; RESP 14; TEMP 36.8; O2SAT 96
[2020-09-09 22:21] LABS: Neutrophils Peritoneal Fluid 9 %
[2020-09-09 22:22] LABS: Lymphocyte Peritoneal Fl 7 %; Monocytes Peritoneal Fl 76 %; Other Peritioneal Fl 8 %
[2020-09-10 07:24] LABS: Albumin Peritoneal Fluid 0.3; Total Protein Peritoneal Fluid 0.8
[2020-09-10 07:25] LABS: Amylase Peritoneal Fluid 13; Glucose Peritoneal Fluid 94
== END 2020-09-09 23:47 | disposition home or self-care (01) ==
PROVIDERS: Nurse Practitioner Primary Care; Emergency Provider Emergency Medicine
DX: K70.31 Alcoholic cirrhosis of liver with ascites (principal); F10.20 Alcohol dependence, uncomplicated; J44.9 Chronic obstructive pulmonary disease, unspecified; Z79.899 Other long term (current) drug therapy
CPT/HCPCS: 36415; 49083; 80053; 81001; 82042; 82077; 82150; 82945; 83605; 84157; 85025; 85610; 85730; 87040; 87071; 87073; 87205; 89051; 96360; 96361; 96365; 99284; 99285; P9047

== ENCOUNTER → 2020-10-18 09:05 | Outpatient (BNVA) | payer MEDICAID, SELFPAY | PROVIDERS: PCP Family Medicine; Visit Provider Internal Medicine Gastroenterology | DX: K70.31 Alcoholic cirrhosis of liver with ascites (principal); K72.90 Hepatic failure, unspecified without coma; B19.20 Unspecified viral hepatitis C without hepatic coma; D50.9 Iron deficiency anemia, unspecified | CPT/HCPCS: 99212 ==

== ENCOUNTER 2022-01-05 11:34 | Outpatient (REF) | payer MEDICAID, SELFPAY ==
[2022-01-05 11:52] LABS: MANUAL DIFF FLAG NO
[2022-01-05 12:34] LABS: Basophils Percent Auto 0.7 % (0-2); Eosinophils Absolute Auto 0.1 X10*3/uL (0.0-0.4); Eosinophils Percent Auto 2.1 % (0-4); Hematocrit 30.8 % (37.0-47.0); Hemoglobin 9.3 g/dl (12.0-16.0); Imm Gran Abs Auto 0.03 X10*3/uL (0.00-0.03); Imm Gran Pct Auto 0.7 % (0.0-0.4); Lymphocytes Absolute Auto 0.6 X10*3/uL (1.2-4.9); Lymphocytes Percent Auto 12.8 % (20-40); Mean Corpuscular HGB Conc 30.2 g/dl (31.0-35.0); Mean Corpuscular Hemoglobin 23.3 pg (27.0-33.0); Monocytes Absolute Auto 0.5 X10*3/uL (0.1-1.2); Monocytes Percent Auto 12.1 % (2-11); Neutrophils Absolute Auto 3.1 x10*3/uL (2.0-8.3); Neutrophils Percent Auto 71.6 % (45-73); Platelet Count 72 X10*3/uL (160-400); Red Cell Distribution Width 21.9 % (11.0-16.0); White Blood Count 4.4 X10*3/uL (4.8-10.8)
[2022-01-05 12:35] LABS: Estimated Average Glucose 100 mg/dL; Hemoglobin A1c % 5.1 %
[2022-01-05 13:01] LABS: Creatinine Urine 26.47 mg/dL; Microalbum/Creatinine Ratio Ur 619.5 ug/mg cr
[2022-01-05 13:06] LABS: Alanine Aminotransferase 25 U/L (0-31); Alkaline Phosphatase 111 U/L (39-117); Anion Gap 14 (12-20); Aspartate Amino Transferase 69 U/L (5-31); Bilirubin Direct 0.5 mg/dL (0.0-0.5); Bilirubin Total 0.7 mg/dL (0.0-1.0); Blood Urea Nitrogen 11 mg/dL (9-16); Calcium 8.3 mg/dL (8.4-10.2); Carbon Dioxide 25 mmol/L (22-29); Chloride 101 mmol/L (96-108); Cholesterol 89 mg/dL; Estimated Glomerular Filt Rate > 60; Glucose Random 102 mg/dL (60-115); HDL Cholesterol 11 mg/dL; Iron 25 mcg/dL (30-160); LDL Cholesterol Calculated 58 mg/dl; Percent Iron Saturation 5 % (15-50); Potassium 3.5 mmol/L (3.3-5.1); Sodium 136 mmol/L (135-145); Total Iron Binding Capacity 470 mcg/dL (228-428); Total Protein 8.4 g/dL (6.5-8.0); Triglycerides 101 mg/dL; Unsaturated Iron Binding 445 ug/dL
[2022-01-05 13:23] LABS: Ferritin 29 ng/mL (10-250); Free T4 (Free Thyroxine) 0.67 ng/dL (0.71-1.85); Vitamin D 25-OH Total 14.7 ng/mL (>30)
[2022-01-05 13:33] LABS: Folate > 20.0 ng/mL (> or = 4.0); Vitamin B12 962 pg/mL (200-900)
[2022-01-09 13:57] LABS: Alpha Fetoprotein 2.7 ng/mL
== END 2022-01-05 11:35 | disposition home or self-care (01) ==
LOC: HO.LAB 11:34
PROVIDERS: PCP Family Medicine; Visit Provider Family Medicine
DX: K72.90 Hepatic failure, unspecified without coma (principal); K70.31 Alcoholic cirrhosis of liver with ascites; B19.20 Unspecified viral hepatitis C without hepatic coma; I10 Essential (primary) hypertension; D50.9 Iron deficiency anemia, unspecified; Z79.899 Other long term (current) drug therapy
CPT/HCPCS: 36415; 80048; 80061; 80076; 82043; 82105; 82140; 82306; 82607; 82728; 82746; 83036; 83540; 84439; 84443; 85025; 99212

== ENCOUNTER 2022-01-11 09:57 | Outpatient (REF) | payer MEDICAID, SELFPAY ==
--- NOTE | ~2022-01-11 | US_ITS ---
EXAMINATION: US ABDOMEN COMPLETE CLINICAL INFORMATION: Alcoholic cirrhosis with ascites. COMPARISON: 08/03/2020 abdominal ultrasound. TECHNIQUE: Real-time imaging of the abdominal viscera. FINDINGS: PANCREAS: Visualized portions unremarkable. ABDOMINAL AORTA: Visualized portions unremarkable. INFERIOR VENA CAVA: Visualized portions unremarkable. LIVER: Hepatic cirrhosis without focal abnormality. GALLBLADDER: Small gallstones near the neck without significant mural thickening or pericholecystic fluid. COMMON BILE DUCT: The common hepatic duct measures up to 1.1 cm. The common bile duct measures up to 0.9 cm with tapering towards the pancreatic head. No intraluminal abnormality. RIGHT KIDNEY: 9.7 cm. Increased cortical echotexture. LEFT KIDNEY: 12.3 cm. Unremarkable. SPLEEN: 17.3 cm. Unremarkable. 2 small splenules measuring 2.5 cm and 1.6 cm. FREE FLUID: Mild ascites. US/US abdomen complete IMPRESSION: 1. Hepatic cirrhosis, mild peritoneal ascites and splenomegaly. 2. Cholelithiasis without evidence for acute cholecystitis. 3. Mildly symmetric atrophy of the right kidney. Findings suggest medical renal disease. Correlate with renal function tests.
== END 2022-01-11 09:58 | disposition home or self-care (01) ==
LOC: HO.US 09:57
PROVIDERS: Visit Provider Internal Medicine Gastroenterology
DX: K70.31 Alcoholic cirrhosis of liver with ascites (principal)
CPT/HCPCS: 76700

== ENCOUNTER 2022-02-28 06:56 | Outpatient (REF) | payer MEDICAID, SELFPAY ==
--- NOTE | ~2022-02-28 | US_ITS ---
EXAMINATION: US ABDOMEN LIMITED CLINICAL INFORMATION: Cirrhosis. Bloating. Check for ascites.. COMPARISON: Previous ultrasound most recent December 2021 TECHNIQUE: Limited 4 quadrant abdominal ultrasound FINDINGS: Small to moderate amount of ascites. US/US abdomen limited IMPRESSION: Small to moderate amount of ascites.
== END 2022-02-28 06:57 | disposition home or self-care (01) ==
LOC: HO.US 06:56
PROVIDERS: Visit Provider Internal Medicine Gastroenterology
DX: K70.31 Alcoholic cirrhosis of liver with ascites (principal)
CPT/HCPCS: 76705

== ENCOUNTER → 2022-03-14 14:46 | Outpatient (REF) | payer MEDICAID, SELFPAY ==
--- NOTE | 2022-03-14 14:52 | CA_ITS ---
Transthoracic Echocardiogram Patient (Last, First, Middle): Rosalinda Ashley, Gender: Female Date of : 1965 Age: 56 Procedure Date: 03/14/2022 Procedure Type: Transthoracic Echocardiogram Location: OP Height: 147.32 cm Weight: 54.43 kg BSA: 1.47 m2 Heart Rate: bpm BP: 148 / 82 mmHg Porcelain Finish Sprayer: ESTEFANIA Referring MD: Amina Malone DO Business Technology Teacher: Breezy Ponce MD Symptoms: QUIROZ, FATIGUE Study Quality: Adequate ECG Rhythm: Sinus Conclusions: - 1. Normal LV systolic function with impaired relaxation filling pattern 2. Normal cardiac valvular Doppler 3. Normal RV systolic pressure 4. No gross pericardial effusion Findings Left Ventricle Normal left ventricular size, thickness, and systolic function. The visually estimated ejection fraction is between 60-65%. Spectral Doppler is indicative of an impaired relaxation filling pattern. E/E prime ratio is between 8 and 15 consistent with indeterminate filling pressures. Peak GLS is -17.5%, within normal limits. Right Ventricle Normal right ventricular cavity size and systolic function. Atria Both atria are normal in size. There is lipomatous hypertrophy of the interatrial septum. There is no evidence of interatrial shunt. Aortic Valve Normal aortic valve structure and function. There is no aortic valve stenosis. There is no aortic valve regurgitation. Mitral Valve Normal mitral valve structure and function. There is trace mitral valve regurgitation. There is no mitral valve stenosis. Pulmonic Valve The pulmonic valve is likely normal. Tricuspid Valve Normal tricuspid valve structure. There is trace tricuspid valve regurgitation. The right ventricular systolic pressure is normal. The right ventricular systolic pressure is 28 mmHg. Normal right atrial pressure. There is no evidence of pulmonary hypertension. Great Vessels All visible segments of the aorta are normal in size. The pulmonary artery was not well visualized. Venous The inferior vena cava is normal in size and collapses greater than 50% with inspiration. Pericardium/Pleural There is no evidence of pericardial effusion. Prior Study Comparison No significant change compared to prior study dated: 09/13/2016. Measurements 2D Linear Measurements IVSd: 1.15 0.6-0.9/0.6-1.0 cm LVIDd: 3.91 3.9-5.3/4.2-5.9 cm LVIDd Index: 2.66 2.4-3.2/2.2-3.1 cm/m2 LVIDs: 2.34 2.0-3.6 cm LVPWd: 0.84 0.7-1.1 cm LA Diam: 3.00 2.7-3.8/3.0-4.0 cm LAIDs Index: 2.04 1.5-2.3 cm/m2 LV Mass: 151.75 67-162/88-224 g LV Mass Index: 103.23 43-95/49-115 g/m2 LVOT Diam: 2.00 3.0+(-)1.3 cm 2D Systolic Function EF 4C: 63.70 >55% EF 2C: 62.60 >55% EF BiP: 63.40 >55% Mitral Valve MV Pk E: 0.75 MV PK A: 1.09 MV Decel Time: 206.00 E/A: 0.70 E'Lateral: 8.95 E'Medial: 6.85 E/E' Med: 10.90 E/E' Lat: 8.40 PHT: 60.00 MVA PHT: 3.67 Decel [place]: 3.64 Aortic Valve AoV Pk Shen: 1.83 AoV Mn Shen: 1.22 AoV VTI: 0.36 AoV Pk Grad: 13.00 Aov Mn Grad: 7.00 WAN Cont.VTI: 2.23 LVOT LVOT Pk Shen: 1.07 LVOT Mn Shen: 0.79 LVOT VTI: 0.26 LVOT Pk Grad: 5.00 LVOT Mn Grad: 3.00 LVOT Diam: 2.00 LVOT Area: 3.14 Diastolic Function MV Pk E: 0.75 MV Pk A: 1.09 E/A: 0.70 E'Medial: 6.85 E/E' Med: 10.90 E' Laterial: 8.95 E/E' Lat: 8.40 Right Ventricle TAPSE (mm): 31.90 TVS' Shen: 19.40 Tricuspid Valve TR Pk Shen: 2.51 TR Pk Grad: 25.00 RA Press: 3.00 RVSP: 28.00 Great Vessels Aorta Sinus of Valsalva: 2.99 2.0-3.[address] [place]: 2.57 1.7-3.4 cm Ao Asc: 3.30 2.1-3.4 cm Updated in Other Vendor System with Status of Final Breezy Ponce MD electronically signed on 03/15/2022 2:47:08 PM with status of Final
== END ==
LOC: HO.CARD 14:46
PROVIDERS: PCP Family Medicine; Visit Provider Family Medicine
DX: R53.83 Other fatigue (principal)
CPT/HCPCS: 93306; 93356

== ENCOUNTER 2022-03-16 07:05 | Outpatient (REF) | payer MEDICAID, SELFPAY ==
--- NOTE | ~2022-03-16 | CT_ITS ---
EXAMINATION: CT ABDOMEN AND PELVIS WITH CONTRAST CLINICAL INFORMATION: Unspecified cirrhosis of liver COMPARISON: CT abdomen 01/11/2022 TECHNIQUE: Multidetector volumetric images were obtained from the superior aspect of the liver through the pubic symphysis following administration 85 mL of Omnipaque 350 intravenous contrast. Sagittal and coronal reformatted images were obtained on the technologist's workstation. Oral contrast: No This CT examination was performed using dose optimization techniques as appropriate, variously including the following: *Automated exposure control *Adjustment of mA and/or kV according to patient size (this includes techniques or standardized protocols for targeted exams where dose is matched to indication/reason for exam; i.e. extremities or head) *Use of iterative reconstruction technique DLP: 317 mGy-cm FINDINGS: LUNG BASES: The visualized lung bases are unremarkable. LIVER, GALLBLADDER, AND BILIARY TREE: The liver is lobulated in size, normal size with heterogeneous echotexture. It measures 15 cm in length. No focal lesion or intrahepatic ductal dilatation seen. There are increased collateral vessels at the kathi hepatis from portal venous hypertension. The portal vein is patent. There are numerous gallstones without wall thickening. There is diffuse moderate ascites. PANCREAS: Unremarkable. SPLEEN: The spleen is enlarged measuring 16 cm. There is a ill-defined irregular opacity in the superior segment of spleen measuring 4.7 x 3.0 x 3.0 cm ADRENAL GLANDS: Unremarkable. KIDNEYS AND URETERS: The kidneys are normal in size, shape, and attenuation. No hydronephrosis, hydroureter, or calculi seen. No perinephric stranding. BLADDER: Unremarkable. GASTROINTESTINAL TRACT: Oral contrast opacifies small bowel loops and colon and unremarkable. The stomach is nondistended with recently ingested food. ABDOMINAL WALL: No significant hernia is appreciated. LYMPH NODES: No lymph nodes seen. VASCULAR: There is atherosclerotic calcification of abdominal aorta PELVIC VISCERA: The uterus is anteverted and appears unremarkable. There is a large amount of ascites. No abnormal pelvic or inguinal lymph nodes seen. OSSEOUS STRUCTURES: No aggressive lytic or sclerotic process seen. CT/CT abdomen pelvis w IV con IMPRESSION: 1. Cirrhotic liver with splenomegaly and portal venous hypertension. There is a large amount of ascites. There is recanalization of umbilical vein. 2. Ill-defined opacity in the superior segment of spleen. 3. Gallstones without wall thickening. Similar findings were seen on the previous CT abdomen and pelvis exam 01/11/2022. Fleischner guidelines were followed.
[2022-03-16] MEDS: iohexoL 350 MG/ML 75 ML INFUS..BTL 85 ML IV (09:25)
[2022-03-16] MEDS: Barium Sulfate Oral (Berry) 450 ML ORAL.SUSP 900 ML PO (09:26)
[2022-03-16 11:29] LABS: GFR POC > 60
== END 2022-03-16 07:06 | disposition home or self-care (01) ==
LOC: HO.CT 07:05
PROVIDERS: PCP Family Medicine; Visit Provider Internal Medicine Gastroenterology
DX: K74.60 Unspecified cirrhosis of liver (principal); R18.8 Other ascites
CPT/HCPCS: 74177; 82565; Q9967

== ENCOUNTER 2022-03-29 05:59 | Day surgery (SDC) | payer MEDICAID, SELFPAY ==
[2022-03-29] VITALS (9 sets, daily range): BP systolic 137–172; BP diastolic 63–86; PULSE 77–89; RESP 16–18; TEMP 37.1–37.4; O2SAT 92–100; BMI 24.2
--- NOTE | ~2022-03-29 | US_ITS ---
EXAMINATION: US ULTRASOUND-GUIDED PARACENTESIS CLINICAL INFORMATION: Ascites. Cirrhosis. COMPARISON: None TECHNIQUE: Following explaining ultrasound-guided paracentesis procedure, benefits and risks, a written consent was obtained. Preliminary ultrasound imaging was performed and an optimal site was selected along the right lower quadrant and marked on the skin. The marked area was cleaned and draped in the usual sterile manner. 1% lidocaine was injected puncture site. Through a small skin incision, a 5 Azerbaijani Phyteleh catheter was advanced from the skin into the peritoneal space. After observing fluid return, stylet was withdrawn and catheter connected to vacuum bottle via connecting cannula. After obtaining all fluid and observing no more fluid return, catheter was withdrawn and complete hemostasis was achieved at the puncture site. Sterile dressing was applied at the puncture site. Patient on the procedure extremely well. FINDINGS: On preliminary ultrasound imaging, there was moderate ascites. Approximately 2.2 L of clear yellowish fluid was drained from the right lower quadrant. US/US paracentesis abd w/image IMPRESSION: Successful ultrasound-guided therapeutic paracentesis performed with approximately 2.2 L of clear yellowish fluid drained.
[2022-03-29 06:49] LABS: MANUAL DIFF FLAG NO
[2022-03-29 06:54] LABS: Basophils Percent Auto 0.8 % (0-2); Eosinophils Absolute Auto 0.1 X10*3/uL (0.0-0.4); Eosinophils Percent Auto 2.5 % (0-4); Hemoglobin 8.8 g/dl (12.0-16.0); Imm Gran Abs Auto 0.01 X10*3/uL (0.00-0.03); Imm Gran Pct Auto 0.3 % (0.0-0.4); Lymphocytes Absolute Auto 0.6 X10*3/uL (1.2-4.9); Lymphocytes Percent Auto 16.8 % (20-40); Mean Corpuscular HGB Conc 29.3 g/dl (31.0-35.0); Mean Corpuscular Hemoglobin 22.1 pg (27.0-33.0); Mean Corpuscular Volume 75.2 fL (80.0-98.0); Mean Platelet Volume 9.5 fL (9.4-12.3); Monocytes Absolute Auto 0.5 X10*3/uL (0.1-1.2); Monocytes Percent Auto 14.6 % (2-11); Neutrophils Absolute Auto 2.3 x10*3/uL (2.0-8.3); Red Blood Count 3.99 X10*6/uL (4.20-5.50); Red Cell Distribution Width 19.1 % (11.0-16.0); White Blood Count 3.6 X10*3/uL (4.8-10.8)
[2022-03-29 06:57] LABS: Platelet Count 66 X10*3/uL (160-400)
[2022-03-29 07:11] LABS: INTERNATIONAL NORM RATIO 1.4 (0.9-1.1); Prothrombin Time 16.8 SEC (10.0-13.1)
[2022-03-29 07:13] LABS: Anion Gap 11 (12-20); Blood Urea Nitrogen 10 mg/dL (9-16); Carbon Dioxide 24 mmol/L (22-29); Chloride 106 mmol/L (96-108); Potassium 3.9 mmol/L (3.3-5.1); Sodium 137 mmol/L (135-145)
[2022-03-29 07:14] LABS: Partial Thromboplastin Time 33.8 SEC (26.0-36.4)
[2022-03-29] MEDS: Lidocaine HCl 1 % MPF 5 ML VIAL 10 ML SUBCUT (09:26)
== END 2022-03-29 12:00 | disposition home or self-care (01) ==
PROVIDERS: PCP Family Medicine; Visit Provider Radiology Diagnostic Radiology
DX: R18.8 Other ascites (principal); K74.60 Unspecified cirrhosis of liver; F10.10 Alcohol abuse, uncomplicated; I10 Essential (primary) hypertension; R76.0 Raised antibody titer; J44.9 Chronic obstructive pulmonary disease, unspecified; B19.20 Unspecified viral hepatitis C without hepatic coma; Z79.51 Long term (current) use of inhaled steroids; Z79.899 Other long term (current) drug therapy; F17.210 Nicotine dependence, cigarettes, uncomplicated
CPT/HCPCS: 36415; 49083; 80051; 84520; 85025; 85610; 85730

== ENCOUNTER 2022-05-15 09:43 | Day surgery (SDC) | payer MEDICAID, SELFPAY ==
[2022-05-15] VITALS (9 sets, daily range): BP systolic 143–169; BP diastolic 68–85; PULSE 75–86; RESP 14–18; TEMP 36.6–36.9; O2SAT 88–96; BMI 25.8
--- NOTE | ~2022-05-15 | US_ITS ---
EXAMINATION: US ULTRASOUND-GUIDED PARACENTESIS CLINICAL INFORMATION: Ascites. COMPARISON: None. TECHNIQUE: Following explaining ultrasound-guided paracentesis procedure, benefits and risks, a written consent was obtained. Patient was placed supine on ultrasound stretcher and preliminary ultrasound imaging was obtained. An optimal site was selected, marked, cleaned and draped in usual sterile manner. 1% lidocaine was inserted at puncture site along the right lower quadrant. Through a small skin incision a 5 [employer] catheter was advanced into the peritoneal space. After observing fluid return, stylet was withdrawn and catheter connected to vacuum bottle via connecting cannula. After obtaining almost all fluid and observing no more fluid return, catheter was withdrawn and complete hemostasis was achieved at the puncture site. Patient tolerated the procedure extremely well. FINDINGS: On preliminary ultrasound imaging, there was a moderate amount of free fluid in the abdomen. Approximately 4.7 L of clear yellowish fluid was drained. None of this fluid was sent to lab. US/US paracentesis abd w/image IMPRESSION: Successful ultrasound-guided therapeutic paracentesis performed.
[2022-05-15 10:42] LABS: MANUAL DIFF FLAG NO
[2022-05-15 10:44] LABS: Basophils Percent Auto 0.3 % (0-2); Eosinophils Absolute Auto 0.2 X10*3/uL (0.0-0.4); Hematocrit 27.9 % (37.0-47.0); Hemoglobin 8.5 g/dl (12.0-16.0); Imm Gran Abs Auto 0.04 X10*3/uL (0.00-0.03); Imm Gran Pct Auto 0.5 % (0.0-0.4); Lymphocytes Absolute Auto 0.8 X10*3/uL (1.2-4.9); Lymphocytes Percent Auto 11.1 % (20-40); Mean Corpuscular HGB Conc 30.5 g/dl (31.0-35.0); Mean Corpuscular Hemoglobin 22.9 pg (27.0-33.0); Mean Corpuscular Volume 75.2 fL (80.0-98.0); Mean Platelet Volume 9.3 fL (9.4-12.3); Neutrophils Absolute Auto 5.4 x10*3/uL (2.0-8.3); Neutrophils Percent Auto 73.1 % (45-73); Red Blood Count 3.71 X10*6/uL (4.20-5.50); Red Cell Distribution Width 21.9 % (11.0-16.0); White Blood Count 7.4 X10*3/uL (4.8-10.8)
[2022-05-15 10:49] LABS: INTERNATIONAL NORM RATIO 1.4 (0.9-1.1); Prothrombin Time 16.5 SEC (10.0-13.1)
[2022-05-15 10:52] LABS: Platelet Count 95 X10*3/uL (160-400)
[2022-05-15] MEDS: Lidocaine HCl 1 % MPF 5 ML VIAL SUBCUT (13:07)
--- NOTE | 2022-05-15 13:58 | PC.NURSE ---
as discussed with md. Gustafson patient ok to be discharged at 15:00.
== END 2022-05-15 14:51 | disposition home or self-care (01) ==
PROVIDERS: Radiology Diagnostic Radiology; PCP Family Medicine; Visit Provider Radiology Diagnostic Radiology
DX: R18.8 Other ascites (principal); K74.69 Other cirrhosis of liver; B19.20 Unspecified viral hepatitis C without hepatic coma; R76.0 Raised antibody titer; F10.10 Alcohol abuse, uncomplicated; F19.10 Other psychoactive substance abuse, uncomplicated; D61.818 Other pancytopenia; G89.29 Other chronic pain; I10 Essential (primary) hypertension; R20.2 Paresthesia of skin; J44.9 Chronic obstructive pulmonary disease, unspecified; F41.0 Panic disorder [episodic paroxysmal anxiety]; Z79.51 Long term (current) use of inhaled steroids; Z79.899 Other long term (current) drug therapy; F17.210 Nicotine dependence, cigarettes, uncomplicated
CPT/HCPCS: 36415; 49083; 85025; 85610; 85730

== ENCOUNTER 2022-05-26 15:54 | Day surgery (SDC) | payer MEDICAID, SELFPAY ==
--- NOTE | ~2022-05-26 | US_ITS ---
EXAMINATION: ULTRASOUND-GUIDED PARACENTESIS CLINICAL INFORMATION: Ascites. COMPARISON: None. TECHNIQUE: Following extending ultrasound-guided paracentesis procedure, benefits and risk, a written consent was obtained from the patient itself. Preliminary ultrasound was performed. An optimal site was selected along the left lower quadrant. The marked site was cleaned and draped in the usual sterile manner. 1% lidocaine was injected at the puncture site. Through a small skin incision a 5 Romanian Yueh catheter was advanced into the peritoneal space. After observing fluid return, stylet was connected to vacuum bottle via connecting cannula . After obtaining all fluid and observing no more fluid return, catheter was withdrawn and complete hemostasis was achieved at the puncture site. A sterile Band-Aid was applied postprocedure. The patient tolerated procedure extremely well. FINDINGS: On preliminary ultrasound imaging there is moderate free fluid. Approximately 5.1 Liters of clear yellowish fluid was drained from both lungs. Post intervention chest x-ray revealed no pneumothorax. US/US paracentesis abd w/image IMPRESSION: Successful guided therapeutic therapeutic paracentesis performed. There are no immediate complications.
[2022-05-26 12:33] VITALS: BMI 25.2
[2022-05-26] MEDS: Lidocaine HCl 1 % MPF 5 ML VIAL SUBCUT (14:38)
[2022-05-26 14:45] VITALS: BP 132/71; PULSE 92; RESP 18; TEMP 38.1; O2SAT 95
[2022-05-26 15:00] VITALS: BP 135/73; PULSE 93; RESP 18; TEMP 38.1; O2SAT 95
== END 2022-05-26 15:56 | disposition home or self-care (01) ==
LOC: HO.SSS 15:55
PROVIDERS: Radiology Diagnostic Radiology; PCP Family Medicine; Visit Provider Internal Medicine Gastroenterology
DX: R18.8 Other ascites (principal); K74.60 Unspecified cirrhosis of liver; F10.10 Alcohol abuse, uncomplicated; K72.90 Hepatic failure, unspecified without coma; B19.20 Unspecified viral hepatitis C without hepatic coma; F19.10 Other psychoactive substance abuse, uncomplicated; J44.9 Chronic obstructive pulmonary disease, unspecified; I10 Essential (primary) hypertension; D50.9 Iron deficiency anemia, unspecified; R16.0 Hepatomegaly, not elsewhere classified
CPT/HCPCS: 49083

== ENCOUNTER 2022-06-20 08:57 | Day surgery (SDC) | payer MEDICAID, SELFPAY ==
--- NOTE | ~2022-06-20 | US_ITS ---
EXAMINATION: ULTRASOUND-GUIDED PARACENTESIS CLINICAL INFORMATION: Ascites. COMPARISON: Previous exam most recent 05/26/2022. TECHNIQUE: Procedure and risks and benefits including bleeding, infection and low blood pressure were discussed with the patient and informed consent was obtained. The left lower quadrant was prepped and draped in the usual sterile fashion. The skin and soft tissues were anesthetized with 1% lidocaine plain. Using ultrasound guidance and a 5 Kyrgyz 1 6 system, access to the ascitic fluid was obtained. 5 L of clear yellow fluid was removed. No diagnostic specimen was sent. FINDINGS: There is a large amount of ascites. US/US paracentesis abd w/image IMPRESSION: Ultrasound-guided paracentesis.
[2022-06-20 09:37] LABS: MANUAL DIFF FLAG NO
[2022-06-20 09:39] LABS: Basophils Percent Auto 0.1 % (0-2); Hematocrit 27.5 % (37.0-47.0); Hemoglobin 8.2 g/dl (12.0-16.0); Imm Gran Abs Auto 0.09 X10*3/uL (0.00-0.03); Imm Gran Pct Auto 0.9 % (0.0-0.4); Lymphocytes Absolute Auto 0.5 X10*3/uL (1.2-4.9); Lymphocytes Percent Auto 4.9 % (20-40); Mean Corpuscular HGB Conc 29.8 g/dl (31.0-35.0); Mean Corpuscular Hemoglobin 22.6 pg (27.0-33.0); Mean Corpuscular Volume 75.8 fL (80.0-98.0); Monocytes Absolute Auto 0.7 X10*3/uL (0.1-1.2); Monocytes Percent Auto 7.2 % (2-11); Neutrophils Absolute Auto 8.5 x10*3/uL (2.0-8.3); Neutrophils Percent Auto 86.9 % (45-73); Platelet Count 100 X10*3/uL (160-400); Red Blood Count 3.63 X10*6/uL (4.20-5.50); Red Cell Distribution Width 21.6 % (11.0-16.0); White Blood Count 9.8 X10*3/uL (4.8-10.8)
[2022-06-20 09:44] VITALS: BP 151/69; PULSE 78; RESP 18; TEMP 36.6; O2SAT 96; BMI 25.2
[2022-06-20 09:47] LABS: INTERNATIONAL NORM RATIO 1.5 (0.9-1.1); Prothrombin Time 17.3 SEC (10.0-13.1)
[2022-06-20 09:49] LABS: Partial Thromboplastin Time 32.4 SEC (26.0-36.4)
[2022-06-20] MEDS: Lidocaine HCl 1 % MPF 5 ML VIAL SUBCUT (11:39)
[2022-06-20 11:40] VITALS: BP 145/69; PULSE 80; RESP 16; TEMP 37.2; O2SAT 94
[2022-06-20 11:55] VITALS: BP 147/74; PULSE 77; RESP 16; O2SAT 95
[2022-06-20 12:10] VITALS: BP 156/75; PULSE 75; RESP 16; O2SAT 95
--- NOTE | 2022-06-20 12:10 | HO.RADPN ---
RADIOLOGY Narrative Narrative: LLQ large volume paracentesis. No specimen sent.
[2022-06-20 12:35] VITALS: BP 156/81; PULSE 76; RESP 16; TEMP 37.1; O2SAT 96
== END 2022-06-20 12:41 | disposition home or self-care (01) ==
PROVIDERS: Radiology Diagnostic Radiology; PCP Family Medicine; Visit Provider Radiology Diagnostic Radiology
DX: R18.8 Other ascites (principal); K70.31 Alcoholic cirrhosis of liver with ascites; B19.20 Unspecified viral hepatitis C without hepatic coma; F19.90 Other psychoactive substance use, unspecified, uncomplicated; J44.9 Chronic obstructive pulmonary disease, unspecified; Z87.891 Personal history of nicotine dependence
CPT/HCPCS: 36415; 49083; 85025; 85610; 85730

== ENCOUNTER 2022-06-30 07:23 | Outpatient (REF) | payer MEDICAID, SELFPAY ==
[2022-06-30 09:42] LABS: Anion Gap 9 (12-20); Blood Urea Nitrogen 16 mg/dL (9-16); Calcium 7.9 mg/dL (8.4-10.2); Carbon Dioxide 23 mmol/L (22-29); Chloride 106 mmol/L (96-108); Estimated Glomerular Filt Rate 55; Glucose Random 93 mg/dL (60-115); Potassium 3.9 mmol/L (3.3-5.1); Sodium 134 mmol/L (135-145)
== END 2022-06-30 07:24 | disposition home or self-care (01) ==
LOC: HO.LAB 07:23
PROVIDERS: PCP Family Medicine; Referring Provider Family Medicine; Visit Provider Internal Medicine Gastroenterology
DX: K74.60 Unspecified cirrhosis of liver (principal); R18.8 Other ascites
CPT/HCPCS: 36415; 80048; 99212

== ENCOUNTER 2022-07-04 12:19 | Day surgery (SDC) | payer MEDICAID, SELFPAY ==
--- NOTE | ~2022-07-04 | US_ITS ---
EXAMINATION: Ultrasound-guided paracentesis CLINICAL INFORMATION: Ascites COMPARISON: Previous exams most recent 06/20/2022 TECHNIQUE: The right lower quadrant was prepped and draped in the usual sterile fashion. The skin and soft tissues were anesthetized with 1% lidocaine plain. Using ultrasound guidance and a 5 Sinhala one-step catheter, access to the ascitic fluid was obtained. 5.1 L of clear yellow fluid was removed. Diagnostic specimen was sent. FINDINGS: There is a large amount of ascites. US/US paracentesis abd w/image IMPRESSION: Ultrasound-guided paracentesis.
[2022-07-04 12:37] VITALS: BMI 25.8
[2022-07-04 12:52] LABS: MANUAL DIFF FLAG NO
[2022-07-04 12:55] LABS: Basophils Percent Auto 0.7 % (0-2); Eosinophils Absolute Auto 0.1 X10*3/uL (0.0-0.4); Eosinophils Percent Auto 2.5 % (0-4); Hematocrit 26.6 % (37.0-47.0); Hemoglobin 8.1 g/dl (12.0-16.0); Imm Gran Abs Auto 0.02 X10*3/uL (0.00-0.03); Imm Gran Pct Auto 0.5 % (0.0-0.4); Lymphocytes Absolute Auto 0.4 X10*3/uL (1.2-4.9); Lymphocytes Percent Auto 10.2 % (20-40); Mean Corpuscular HGB Conc 30.5 g/dl (31.0-35.0); Mean Corpuscular Hemoglobin 23.4 pg (27.0-33.0); Mean Corpuscular Volume 76.9 fL (80.0-98.0); Mean Platelet Volume 9.8 fL (9.4-12.3); Monocytes Absolute Auto 0.5 X10*3/uL (0.1-1.2); Monocytes Percent Auto 11.5 % (2-11); Neutrophils Absolute Auto 3.2 x10*3/uL (2.0-8.3); Neutrophils Percent Auto 74.6 % (45-73); Red Blood Count 3.46 X10*6/uL (4.20-5.50); White Blood Count 4.3 X10*3/uL (4.8-10.8)
[2022-07-04 12:56] LABS: Platelet Count 86 X10*3/uL (160-400)
[2022-07-04 13:01] LABS: INTERNATIONAL NORM RATIO 1.5 (0.9-1.1); Prothrombin Time 17.3 SEC (10.0-13.1)
[2022-07-04 13:04] VITALS: BP 138/63; PULSE 79; RESP 18; TEMP 36.2; O2SAT 95
[2022-07-04 13:04] LABS: Partial Thromboplastin Time 31.1 SEC (26.0-36.4)
--- NOTE | 2022-07-04 14:35 | HO.RADPN ---
RADIOLOGY Narrative Narrative: RLQ large volume paracentesis. Clear yellow fluid. No specimen sent.
[2022-07-04] MEDS: Lidocaine HCl 1 % MPF 5 ML VIAL SUBCUT (15:14)
[2022-07-04 15:15] VITALS: BP 148/75; PULSE 84; RESP 17; TEMP 37; O2SAT 97
[2022-07-04 15:30] VITALS: BP 131/67; PULSE 87; RESP 16; O2SAT 95
[2022-07-04 15:45] VITALS: BP 140/65; PULSE 86; RESP 18; O2SAT 95
[2022-07-04 15:56] LABS: MN% 86.8 %; PMN% 13.2 %; WBC Peritoneal Fluid 0.136 X10*3/uL
[2022-07-04 16:46] LABS: RBC Peritoneal Fluid < 0.002 X10*6/uL
[2022-07-04 16:47] LABS: BF Shift QC OK YES; Man Diluent Bkgrd OK YES
[2022-07-04 18:10] LABS: Lymphocyte Peritoneal Fl 21 %; Monocytes Peritoneal Fl 50 %; Neutrophils Peritoneal Fluid 20 %; Other Peritioneal Fl 9 %
[2022-07-04 22:07] LABS: Albumin Peritoneal Fluid 0.4 GM/DL; LDH Peritoneal Fluid 29 U/L
== END 2022-07-04 16:20 | disposition home or self-care (01) ==
PROVIDERS: Internal Medicine Gastroenterology; PCP Family Medicine; Visit Provider Radiology Diagnostic Radiology
DX: R18.8 Other ascites (principal); K74.60 Unspecified cirrhosis of liver; B18.2 Chronic viral hepatitis C; F10.10 Alcohol abuse, uncomplicated; D61.818 Other pancytopenia; R16.1 Splenomegaly, not elsewhere classified; Z79.899 Other long term (current) drug therapy; Z87.891 Personal history of nicotine dependence
CPT/HCPCS: 36415; 49083; 82042; 83615; 85025; 85610; 85730; 89051

== ENCOUNTER 2022-07-17 11:28 | Day surgery (SDC) | payer MEDICAID, SELFPAY ==
--- NOTE | ~2022-07-17 | US_ITS ---
EXAMINATION: Ultrasound-guided paracentesis CLINICAL INFORMATION: Ascites COMPARISON: Previous exams most recent 07/04/2022 TECHNIQUE: Procedure and risks and benefits including bleeding, infection and low blood pressure were discussed with the patient and informed consent was obtained. The right lower quadrant was prepped and draped in usual sterile fashion. The skin and soft tissues were anesthetized with 1% lidocaine plain. Using ultrasound guidance and a 5 Khmer one-step system, access to the ascitic fluid was obtained. 5 L of clear yellow fluid was removed. No diagnostic specimen was sent. FINDINGS: There is a large amount of ascites. US/US paracentesis abd w/image IMPRESSION: Ultrasound-guided paracentesis.
[2022-07-17 11:33] VITALS: BMI 25.8
[2022-07-17 13:45] VITALS: BP 155/74; PULSE 84; RESP 18; TEMP 36.3; O2SAT 97
[2022-07-17] MEDS: Lidocaine HCl 1 % MPF 5 ML VIAL 10 ML SUBCUT (13:49)
[2022-07-17 14:00] VITALS: BP 167/71; PULSE 86; RESP 18; O2SAT 97
[2022-07-17 14:15] VITALS: BP 155/76; PULSE 82; RESP 16; TEMP 36.4; O2SAT 97
[2022-07-17 14:28] VITALS: BP 160/72; PULSE 80; RESP 16; TEMP 36.4; O2SAT 97
== END 2022-07-17 14:43 | disposition home or self-care (01) ==
PROVIDERS: PCP Family Medicine; Visit Provider Radiology Diagnostic Radiology
DX: R18.8 Other ascites (principal); K74.60 Unspecified cirrhosis of liver; J44.9 Chronic obstructive pulmonary disease, unspecified
CPT/HCPCS: 49083

== ENCOUNTER 2022-08-04 12:19 | Day surgery (SDC) | payer MEDICAID, SELFPAY ==
--- NOTE | ~2022-08-04 | US_ITS ---
EXAMINATION: US ULTRASOUND-GUIDED PARACENTESIS CLINICAL INDICATION: Cirrhosis. COMPARISON: Ultrasound-guided paracentesis 07/17/2022. TECHNIQUE: Following explaining ultrasound-guided paracentesis procedure, benefits and risks, a written consent was obtained. Patient was placed supine on ultrasound stretcher and preliminary ultrasound imaging was obtained. An optimal site was selected along the right lower quadrant and area marked on the skin. The marked area was cleaned and draped with 2% chlorhexidine solution. 1% lidocaine was injected at puncture site. Through a small skin incision a 4 Slovak Ideal Meeh catheter was advanced into the peritoneal space. After observing fluid return, stylet was withdrawn and catheter connected to vacuum bottle. After obtaining all fluid and observing no more fluid return, catheter was withdrawn and complete hemostasis achieved at puncture site. Sterile dressing applied postprocedure. Patient tolerated procedure extremely well. FINDINGS: Preliminary ultrasound imaging: There is echogenic liver. There is small to moderate ascites. Approximately 4.2 L of cloudy yellowish fluid was drained from the right lower quadrant. US/US paracentesis abd w/image IMPRESSION: Successful therapeutic paracentesis performed without immediate complications.
[2022-08-04 13:03] LABS: MANUAL DIFF FLAG NO
[2022-08-04 13:06] LABS: Basophils Percent Auto 0.9 % (0-2); Eosinophils Absolute Auto 0.1 X10*3/uL (0.0-0.4); Eosinophils Percent Auto 2.1 % (0-4); Hematocrit 25.2 % (37.0-47.0); Hemoglobin 7.5 g/dl (12.0-16.0); Imm Gran Abs Auto 0.01 X10*3/uL (0.00-0.03); Imm Gran Pct Auto 0.2 % (0.0-0.4); Lymphocytes Absolute Auto 0.6 X10*3/uL (1.2-4.9); Lymphocytes Percent Auto 14.1 % (20-40); Mean Corpuscular HGB Conc 29.8 g/dl (31.0-35.0); Mean Corpuscular Hemoglobin 22.9 pg (27.0-33.0); Mean Corpuscular Volume 76.8 fL (80.0-98.0); Mean Platelet Volume 8.9 fL (9.4-12.3); Monocytes Absolute Auto 0.6 X10*3/uL (0.1-1.2); Monocytes Percent Auto 13.6 % (2-11); Neutrophils Percent Auto 69.1 % (45-73); Red Blood Count 3.28 X10*6/uL (4.20-5.50); Red Cell Distribution Width 21.8 % (11.0-16.0); White Blood Count 4.3 X10*3/uL (4.8-10.8)
[2022-08-04 13:08] LABS: Platelet Count 83 X10*3/uL (160-400)
[2022-08-04 13:11] LABS: INTERNATIONAL NORM RATIO 1.4 (0.9-1.1); Prothrombin Time 16.8 SEC (10.0-13.1)
[2022-08-04 13:14] LABS: Partial Thromboplastin Time 32.2 SEC (26.0-36.4)
[2022-08-04 13:15] VITALS: BMI 24.0
[2022-08-04 13:35] LABS: Anion Gap 13 (12-20); Carbon Dioxide 22 mmol/L (22-29); Chloride 107 mmol/L (96-108); Creatinine Clr Calc Pharmacy 45.4; Estimated Glomerular Filt Rate 54; Potassium 3.7 mmol/L (3.3-5.1); Sodium 138 mmol/L (135-145)
[2022-08-04 15:50] VITALS: BP 133/73; PULSE 80; RESP 16; TEMP 37.4; O2SAT 93
[2022-08-04 16:05] VITALS: BP 137/70; PULSE 79; RESP 16; O2SAT 93
[2022-08-04] MEDS: Lidocaine HCl 1 % MPF 5 ML VIAL 10 ML SUBCUT (16:09)
[2022-08-04 16:22] VITALS: BP 145/64; PULSE 88; RESP 16; TEMP 37.2; O2SAT 93
== END 2022-08-04 16:35 | disposition home or self-care (01) ==
PROVIDERS: Radiology Diagnostic Radiology; PCP Family Medicine; Visit Provider Internal Medicine Gastroenterology
DX: R18.8 Other ascites (principal); K74.60 Unspecified cirrhosis of liver
CPT/HCPCS: 36415; 49083; 80051; 82565; 85025; 85610; 85730

== ENCOUNTER 2022-08-25 12:05 | Day surgery (SDC) | payer MEDICAID, SELFPAY ==
--- NOTE | ~2022-08-25 | US_ITS ---
EXAMINATION: Ultrasound-guided paracentesis CLINICAL INFORMATION: Ascites COMPARISON: Previous exam most recent 08/04/2022 TECHNIQUE: Procedure and wrist and benefits including bleeding, infection and low blood pressure were discussed with the patient through an diplomatic interpreter/translator and informed consent was obtained. The right lower quadrant was prepped and draped in the usual sterile fashion. The skin and soft tissues were anesthetized with 1% lidocaine plain. Using ultrasound guidance and a 5 Lao one-step system, access to the ascitic fluid was obtained. 3 L of clear yellow fluid was removed. No diagnostic specimen was sent. FINDINGS: There is a large amount of ascites. US/US paracentesis abd w/image IMPRESSION: Ultrasound-guided paracentesis.
[2022-08-25 06:10] VITALS: BMI 25.8
[2022-08-25 12:15] VITALS: BP 124/78; PULSE 82; RESP 23; TEMP 36.4; O2SAT 96
[2022-08-25] MEDS: Lidocaine HCl 1 % MPF 5 ML VIAL SUBCUT (14:28)
[2022-08-25 14:38] VITALS: BP 140/60; PULSE 72; RESP 16; TEMP 37.1; O2SAT 94
[2022-08-25 14:53] VITALS: BP 131/65; PULSE 82; RESP 16; O2SAT 96
[2022-08-25 15:08] VITALS: BP 163/77; PULSE 87; RESP 16; TEMP 37; O2SAT 96
== END 2022-08-25 15:12 | disposition home or self-care (01) ==
PROVIDERS: PCP Family Medicine; Visit Provider Radiology Diagnostic Radiology
DX: R18.8 Other ascites (principal); K74.60 Unspecified cirrhosis of liver; J96.01 Acute respiratory failure with hypoxia; J44.9 Chronic obstructive pulmonary disease, unspecified; D69.6 Thrombocytopenia, unspecified; B19.21 Unspecified viral hepatitis C with hepatic coma; Z79.51 Long term (current) use of inhaled steroids; Z79.899 Other long term (current) drug therapy; Z87.891 Personal history of nicotine dependence
CPT/HCPCS: 49083; P9047

== ENCOUNTER 2022-09-28 20:02 | Inpatient (IN) | payer MEDICAID, SELFPAY ==
--- NOTE | ~2022-09-28 | XR_ITS ---
EXAMINATION: XR WRIST, LEFT CLINICAL INFORMATION: Trauma. COMPARISON: None available. TECHNIQUE: PA, lateral, and oblique views of the left wrist. FINDINGS: Comminuted, displaced and impacted distal radial fracture with intra-articular extension. There is volar angulation of the distal fragment. Nondisplaced distal fibular fracture. Surrounding soft tissue swelling. No unexpected radiopaque foreign bodies. XR/XR wrist LT min 3V IMPRESSION: Distal radial and ulnar fractures as above.
--- NOTE | ~2022-09-28 | CT_ITS ---
Examination: CT brain and CT cervical spine without contrast. CLINICAL INDICATION: Neck pain/fall. COMPARISON: None. TECHNIQUE: 3 mm thin axial and reformatted 2 mm thin sagittal and coronal images of cervical spine were obtained without contrast. Axial 5 mm thin and reformatted 2 mm thin sagittal and coronal images of brain were obtained without contrast. DLP [id number]. This CT examination was performed using dose optimization technique as appropriate, variously including the following: Automated exposure control Adjustment of MA and/or KV according to patient size(this includes techniques or standardized protocols for targeted exams where dose is matched to indication/reason for exam; extremities or head. Use of iterative reconstruction techniques. FINDINGS: BRAIN: There is no acute intra-axial, extra-axial bleed, masses or midline shift. There is no acute infarction evolution. There is no edema. The irizarry to white matter difference is maintained normal. The lateral ventricles are symmetrical in size and configuration without enlargement. Bone windows reveal no calvarial abnormality. There is no scalp soft tissue abnormality. Bilateral paranasal sinuses and mastoid air cells are well-aerated. CERVICAL SPINE: There is mild straightening of cervical lordosis. The vertebral heights, alignment and disc heights are normal. The craniovertebral junction and the C1-C2 alignment is normal. There is no visible acute fracture, dislocation or subluxation seen. No aggressive lytic or sclerotic process seen. There is diffuse emphysematous changes of lung apices with groundglass attenuation in left lung apex likely chronic interstitial lung disease. CT/CT cervical spine wo IV con IMPRESSION: No acute intracranial process seen Mild straightening of cervical lordosis without any visible acute fracture, dislocation or subluxation. Emphysema with bullous changes both lung apices and chronic interstitial lung disease left upper lobe.
--- NOTE | ~2022-09-28 | XR_ITS ---
EXAMINATION: XR ELBOW, LEFT CLINICAL INFORMATION: Trauma. COMPARISON: None available. TECHNIQUE: AP, lateral, and oblique views of the left elbow. FINDINGS: No acute fractures or subluxation. No joint effusion. No unexpected radiopaque foreign bodies. XR/XR elbow LT min 3V IMPRESSION: No acute fractures or subluxation.
--- NOTE | ~2022-09-28 | XR_ITS ---
EXAMINATION: XR RIBS, LEFT CLINICAL INFORMATION: Fall, chest pain. COMPARISON: Chest radiograph earlier today. TECHNIQUE: 3 views of the left ribs were obtained. FINDINGS: Small cervical rib. Mildly displaced fractures of the left anterolateral sixth and seventh ribs as well as posterolateral fifth rib. Multifocal interstitial coarsening with some questionable more focal opacities in the left apex. No large pleural effusion or pneumothorax in the left hemithorax. XR/XR ribs LT 2V IMPRESSION: 1. Mildly displaced fractures of the left sixth and seventh ribs as well as the posterolateral fifth rib. 2. Within a background of chronic interstitial coarsening, there are some subtle more focal opacities in the left apex that are nonspecific and could represent contusions in the setting of trauma. A short-term follow-up evaluation is recommended.
--- NOTE | ~2022-09-28 | XR_ITS ---
EXAMINATION: XR CHEST CLINICAL INFORMATION: Trauma. COMPARISON: Chest radiograph 07/20/2020. TECHNIQUE: Frontal view of the chest was obtained. FINDINGS: Stable appearance of the cardiomediastinal silhouette, including prominence of the central pulmonary arteries compared to 07/20/2020. Chronic diffuse interstitial coarsening. No new focal consolidation, pleural effusion or pneumothorax. Age indeterminate right-sided seventh and eighth rib fractures, new compared to 07/20/2020 but with some degree of callus formation. XR/XR chest 1V IMPRESSION: 1. Age indeterminate right-sided seventh and eighth rib fractures, new compared to 07/20/2020 but with some degree of callus formation, suggestive of healing. Correlate with point tenderness. 2. Chronic interstitial coarsening, similar to slightly improved. 3. No focal airspace opacity. No pleural effusion or pneumothorax. 4. Suspect pulmonary hypertension.
--- NOTE | ~2022-09-28 | US_ITS ---
EXAMINATION: US ULTRASOUND-GUIDED PARACENTESIS CLINICAL INDICATION: Ascites. COMPARISON: Ultrasound-guided paracentesis 10/02/2022. TECHNIQUE: Following explaining ultrasound-guided paracentesis procedure, benefits and risks, a written consent was obtained in presence of supply technician and IR nurse. Patient was placed supine on ultrasound stretcher and preliminary ultrasound imaging was obtained through right and left abdomen. An optimal site was selected along the right midabdomen and marked. The marked site was cleaned and draped in usual sterile manner. 1% lidocaine was injected at puncture site. Through a small skin incision a 4 Italian Fetchmobeh catheter was advanced into the peritoneal space. After observing fluid return, stylet was withdrawn and catheter connected to vacuum bottle via connecting cannula. After obtaining all fluid and observing no more fluid return, catheter was removed and complete hemostasis achieved at puncture site. A pressure dressing was applied at the skin site. FINDINGS: Preliminary ultrasound imaging reveals moderate fluid seen in the abdomen. Approximately 4.05 L of clear yellowish fluid was drained from the right lower quadrant. None of this fluid was sent to lab. US/US paracentesis abd w/image IMPRESSION: Successful ultrasound-guided paracentesis with approximately 4.05 L of fluid drained.
--- NOTE | ~2022-09-28 | US_ITS ---
EXAMINATION: Ultrasound-guided paracentesis CLINICAL INFORMATION: Ascites COMPARISON: None. TECHNIQUE: Procedure and risks and benefits including bleeding, infection and low blood pressure were discussed with the patient and informed consent was obtained. The right lower quadrant was prepped and draped in the usual sterile fashion. The skin and soft tissues tissues were anesthetized with 1% lidocaine plain. Using ultrasound guidance and a 5 Cam[place]onian one stick system, access to the ascitic fluid was obtained. 6.8 L of clear yellow fluid was removed. No diagnostic specimen was sent. FINDINGS: There is a large amount of ascites. US/US paracentesis abd w/image IMPRESSION: Ultrasound-guided paracentesis.
--- NOTE | ~2022-09-28 | XR_ITS ---
EXAMINATION: XR CHEST CLINICAL INFORMATION: Cough, hypoxia COMPARISON: Chest and Left RIBS 09/28/2022, chest 07/20/2020 TECHNIQUE: Upright portable view of the chest was obtained. 0850 FINDINGS: There is interval development of patchy opacity in both upper lobes, right greater than left suggestive of pneumonia, particularly in the right upper lobe. There is slight streaky opacity in the lung bases consistent with atelectasis and/or pneumonia. Heart size is normal. Stable appearance of prominence of the central pulmonary arteries. No pleural effusion. Again noted are age indeterminate right-sided seventh and eighth rib fractures and age indeterminate left posterolateral fourth and fifth rib fractures. XR/XR chest 1V IMPRESSION: 1. Interval development of bilateral upper lobe pneumonia, right greater than left. 2. Bibasilar atelectasis and/or pneumonia. 3. Age indeterminate bilateral rib fractures.
--- NOTE | ~2022-09-28 | XR_ITS ---
EXAMINATION: XR ANKLE, LEFT CLINICAL INFORMATION: Fall, pain. COMPARISON: None available. TECHNIQUE: AP, lateral, and mortise views of the left ankle. FINDINGS: No acute fractures or malalignment. Diffuse soft tissue thickening. No unexpected radiopaque foreign bodies. XR/XR ankle LT 2V IMPRESSION: 1. No acute fractures or malalignment. 2. Diffuse soft tissue thickening.
--- NOTE | ~2022-09-28 | XR_ITS ---
EXAMINATION: XR SHOULDER, LEFT CLINICAL INFORMATION: Trauma. COMPARISON: No similar priors. TECHNIQUE: Three views of the left shoulder. FINDINGS: Age indeterminate fracture of the left posterolateral fourth versus fifth rib. No additional fractures. No abnormal soft tissue calcifications. XR/XR shoulder LT min 2V IMPRESSION: Age indeterminate fracture of the left posterolateral fourth versus fifth rib. Correlate for point tenderness.
--- NOTE | ~2022-09-28 | XR_ITS ---
EXAMINATION: XR WRIST, LEFT CLINICAL INFORMATION: Fall and fracture COMPARISON: 09/28/2022 TECHNIQUE: PA, lateral, and oblique views of the left wrist. FINDINGS: Redemonstrated intra-articular fracture of the distal radius with persistent volar angulation of the distal fragment and displacement, without significant change from prior. Nondisplaced fracture of the distal ulna is redemonstrated. Articular alignment across the wrist appears maintained. Redemonstrated soft tissue swelling. XR/XR wrist LT min 3V IMPRESSION: Redemonstrated intra-articular fracture of the distal radius with persistent volar angulation and displacement. Nondisplaced fracture of the distal ulna.
[2022-09-28 20:06] VITALS: BP 152/68; PULSE 90; O2SAT 98
[2022-09-28 20:12] VITALS: BP 159/87; PULSE 94; RESP 16; TEMP 36.9; O2SAT 94; BMI 26.3
--- NOTE | 2022-09-28 20:48 | ECG_ITS ---
Test Reason : FALL Blood Pressure : / mmHG Vent. Rate : 095 BPM Atrial Rate : 095 BPM P-R Int : 148 ms QRS Dur : 088 ms QT Int : 364 ms P-R-T Axes : 072 -10 078 degrees QTc Int : 457 ms Normal sinus rhythm Septal infarct (cited on or before 28-SEP-2022) Abnormal ECG When compared with ECG of 20-JUL-2020 20:19, Questionable change in initial forces of Septal leads Nonspecific T wave abnormality now evident in Lateral leads Referred By: Dennis Rangel Electronically Signed By:DALTON FARRIS MD
--- NOTE | 2022-09-28 20:56 | ED_ITS ---
HPI - General Adult General Chief complaint: Fall Stated complaint: FALLS, LEFT ARM LAC Time Seen by Provider: 09/28/22 20:15 Source: patient Mode of arrival: ambulatory Limitations: no limitations History of Present Illness HPI narrative: A 56-year-old female history of alcoholic liver cirrhosis with ascites that need pre toenail paracentesis on a weekly basis she is due tomorrow for paracenteses patient presented for overall generalized weakness, multiple falls since yesterday, on no fever, no chills, no abdominal pain. Related Data Home Medications Medication Instructions Recorded Confirmed buprenorphine 8 mg-naloxone 2 mg 1 film buccal DAILY 02/24/20 06/30/22 sublingual film (Suboxone) furosemide 40 mg tablet 40 mg PO DAILY 02/24/20 06/30/22 multivitamin 1 tab PO DAILY 02/24/20 06/30/22 omeprazole 20 mg capsule,delayed 20 mg PO BID 02/24/20 06/30/22 release sertraline 50 mg tablet 50 mg PO DAILY 02/24/20 06/30/22 spironolactone 25 mg tablet 100 mg PO DAILY 02/24/20 06/30/22 trazodone 50 mg tablet 50 mg PO BEDTIME 02/24/20 06/30/22 docusate sodium 100 mg capsule 100 mg PO DAILY 07/20/20 06/30/22 (DOK) ipratropium 20 mcg-albuterol 100 1 puff inhalation Q4H PRN 07/20/20 06/30/22 mcg/actuation mist for inhalation Shortness Of Breath (Combivent Respimat) amlodipine 5 mg tablet 1 tab PO QAM 05/15/22 06/30/22 fluticasone propionate 220 1 puff inhalation BID 05/15/22 06/30/22 mcg/actuation HFA aerosol inhaler (Flovent HFA) fluticasone propionate 50 2 spray intranasal DAILY 05/15/22 06/30/22 mcg/actuation nasal spray,suspension folic acid 1 mg tablet 1 tab PO QAM 05/15/22 06/30/22 melatonin 5 mg tablet 1 - 2 tab PO BEDTIME PRN insomnia 05/15/22 06/30/22 oxybutynin chloride 5 mg 1 tab PO QAM 05/15/22 06/30/22 tablet,extended release 24 hr thiamine HCl (vitamin B1) 100 mg 1 tab PO QAM 05/15/22 06/30/22 tablet acamprosate 333 mg tablet,delayed 666 mg PO 08/04/22 08/04/22 release Previous Rx's Medication Instructions Recorded dexamethasone 6 mg tablet 6 mg PO DAILY 6 days #6 tabs 07/25/20 lactulose 20 gram/30 mL oral 20 g (30 mL) PO BID 30 days #1,800 07/25/20 solution mL doxycycline hyclate 100 mg tablet 100 mg PO BID #14 tabs 08/16/20 magnesium oxide 400 mg PO DAILY 30 days #30 tabs 10/24/21 rifaximin 550 mg tablet (Xifaxan) 550 mg PO BID 30 days #60 tabs 05/30/22 Allergies Allergy/AdvReac Type Severity Reaction Status Date / Time No Known Allergies Allergy Verified 09/28/22 20:17 Review of Systems Review of Systems: All other systems are reviewed and are negative Constitutional: Reports as per HPI and Reports no additional constitutional complaints Eyes: Reports as per HPI and Reports no additional eye complaints Reports system reviewed and no additional complaints, except as documented Cardiovascular: Reports as per HPI and Reports no additional cardiovascular complaints Respiratory: Reports as per HPI and Reports no additional respiratory complaints Gastrointestinal: Reports as per HPI and Reports no additional gastrointestinal complaints Genitourinary: Reports no additional female genitourinary complaints Musculoskeletal: Reports no additional musculoskeletal complaints Skin/Breast: Reports system reviewed and no additional complaints, except as docu Psychiatric: Reports no additional psychiatric complaints Endocrine: Reports no additional endocrine complaints Hematologic/Lymphatic: Reports no additional hematologic/lymphatic complaints Allergic/Immunologic: Reports no additional allergic/immunologic complaints Reports system reviewed and no additional complaints, except as documented and Reports Abnormal speech present [facility] Past Medical History Medical History Acute respiratory failure with hypoxia Alcohol abuse Alcohol abuse with withdrawal Alcoholic cirrhosis of liver with ascites Anxiety Coagulopathy COPD (chronic obstructive pulmonary disease) COPD (chronic obstructive pulmonary disease) 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) Elevated rheumatoid factor Hand paresthesia Hepatitis C Hepatomegaly History of abdominal paracentesis Hyperammonemia Microhematuria Pancytopenia Panic attacks Polysubstance abuse Thrombocytopenia Transaminitis Surgical History History of delivery History of esophagogastroduodenoscopy (EGD) (~02/2017) Family History Family History Father Family history of high blood pressure Mother Alive and well Social History Social History Household Members: Children Housing: House Do you presently have visiting nurse or other home services: No Alcohol intake: unknown Patient Tobacco Use Status: Former Tobacco user Tobacco use type: Cigarette Cigarettes Per Day: 4 Second Hand Smoke Exposure: No Advance Directives: Yes Advance Directives Information Provided: No Advance Directives on File: No Advance Directives Date on File: 08/16/20 Patient : No service: No Current occupational status: unemployed Physical Exam ED Vital Signs: Vital Signs - 24 hr 09/28/22 20:12 09/28/22 22:31 09/28/22 22:34 Temperature 98.5 F 98.6 F Pulse Rate 94 96 Respiratory Rate 16 16 Blood Pressure 159/87 H 177/88 H Pulse Oximetry 94 88 L 93 Oxygen Delivery Method Room Air Room Air Nasal Cannula Oxygen Flow Rate 2 BMI result Body Mass Index 26.3 Vital signs have been reviewed as appeared to be correct. Blood pressure normal. Heart rate normal. Respiration rate normal. Temperature normal. Oxygen saturation normal. Appearance: Alert. Oriented X3. No acute distress. Head: Normal external exam. Normocephalic. Atraumatic. No Houser signs noted. No raccoon eyes noted Eyes: PERRLA. EOMI. Conjunctiva and sclera normal. Eyelids normal. ENT: TM's Normal. Pharynx normal. Uvula midline. Moist mucous membranes. No trismus noted. No drooling noted. No muffled voice noted. Neck: Normal inspection. Neck supple. FROM. No adenopathy. Thyroid Normal. No meningeal signs. No neck mass noted. CVS: Normal heart rate and rhythm. Heart sound normal. No murmurs noted. Pulses normal throughout. Respiratory: No respiratory distress. Painless inspiration. Breath sounds normal. No wheezes/rales/rhonchi noted. Chest nontender. No accessory muscle usage noted or decreased air movement noted. Abdomen: Soft and nontender. Bowel sounds normal in all 4 quadrants. No distention noted. No organomegaly noted. No visible injury noted. Back: No CVA tenderness. Full range of motion noted. Skin: Skin warm and dry. Normal skin color. Normal skin turgor. No rashes/lesions/lacerations noted. Extremities: Left upper extremity: Deformity and in a left forearm and fracture, neurovascular intact otherwise. Neuro: Oriented X 3. Cranial nerve exam: II-XII are grossly intact No motor deficit. No sensory deficit. Reflexes normal. Course Course Course Narrative: 56-year-old female came in for increased lethargy, frequent falling, rib fracture, left wrist fracture. 1. Hepatic encephalopathy will give lactulose. 2. Left wrist fracture, hematoma block and externa reduction. 3. No abdominal pain no concern of SBP. Patient is scheduled to have peritoneal paracentesis tomorrow by IR. Procedures Orthopedic Fracture Reduction Fracture #1: Time Out Performed: Yes Side: left Fracture Reduction Location: radius and ulna Analgesia: hematoma block Technique: direct manipulation and traction/counter-traction Post Reduction X-rays Demonstrate: acceptable reduction Post-reduction neuro exam: intact Post-reduction vascular exam: intact Splint Applied: Yes Patient Tolerated Procedure: well Medical Decision Making Differential Diagnosis Differential Diagnoses: The differential diagnosis associated with the presentation includes (Ribs fracture, left wrist fracture, multiple falls, electrolyte abnormalities, dehydration, severe anemia, electrolyte abnormalities, hepatic encephalopathy.) Admission/Observation Consideration of admission/observation: Escalation of care including admission/observation considered Consult Healthcare Provider Management of the patient was discussed with: Hospitalist (Dr. Priest) Lab Data MDM Lab Attestation statement: I reviewed the patient's lab results. 09/28/22 21:04 09/28/22 21:04 Labs: Lab Results 09/28/22 09/28/22 09/28/22 Range/Units 21:04 21:04 21:04 WBC 12.0 H (4.8-10.8) X10*3/uL RBC 3.38 L (4.20-5.50) X10*6/uL Hgb 8.0 L (12.0-16.0) g/dl Hct 26.3 L (37.0-47.0) % MCV 77.8 L (80.0-98.0) fL MCH 23.7 L (27.0-33.0) pg MCHC 30.4 L (31.0-35.0) g/dl RDW 20.7 H (11.0-16.0) % Plt Count 97 L (160-400) X10*3/uL MPV 10.1 (9.4-12.3) fL Immature Gran % (Auto) 0.5 H (0.0-0.4) % Neut % (Auto) 83.6 H (45-73) % Lymph % (Auto) 5.5 L (20-40) % [place] % (Auto) 8.9 (2-11) % Eos % (Auto) 1.2 (0-4) % Baso % (Auto) 0.3 (0-2) % Lymph # (Auto) 0.7 L (1.2-4.9) X10*3/uL [place] # (Auto) 1.1 (0.1-1.2) X10*3/uL Eos # (Auto) 0.1 (0.0-0.4) X10*3/uL Baso # (Auto) 0.0 (0.0-0.2) X10*3/uL Abs Immat Gran (auto) 0.06 H (0.00-0.03) X10*3/uL Absolute Neuts (auto) 10.0 H (2.0-8.3) x10*3/uL Absolute Nucleated RBC 0.000 (0.0-0.012) X10*3/uL Nucleated RBC % (auto) 0.0 (0.0-0.2) /100WBC PT 18.8 H (10.0-13.1) SEC INR 1.6 H (0.9-1.1) Sodium 135 (135-145) mmol/L Potassium 3.3 (3.3-5.1) mmol/L Chloride 109 H (96-108) mmol/L Carbon Dioxide 23 (22-29) mmol/L Anion Gap 6 L (12-20) BUN 18 H (9-16) mg/dL Creatinine 0.98 (0.5-1.4) mg/dL Estim Creat Clear Calc 50.7 Estimated GFR 59 Random Glucose 125 H (60-115) mg/dL Calcium 8.6 D (8.4-10.2) mg/dL Total Bilirubin 1.1 H (0.0-1.0) mg/dL Direct Bilirubin 0.5 (0.0-0.5) mg/dL AST 44 H (5-31) U/L ALT 24 (0-31) U/L Alkaline Phosphatase 164 H (39-117) U/L Ammonia (13-55) umol/L Troponin I High Sens (<3.5-17.0) ng/L Total Protein 7.2 (6.5-8.0) g/dL Albumin 2.5 L (3.5-5.0) g/dL Lipase 17 (8-78) U/L 09/28/22 09/28/22 Range/Units 21:04 21:04 WBC (4.8-10.8) X10*3/uL RBC (4.20-5.50) X10*6/uL Hgb (12.0-16.0) g/dl Hct (37.0-47.0) % MCV (80.0-98.0) fL MCH (27.0-33.0) pg MCHC (31.0-35.0) g/dl RDW (11.0-16.0) % Plt Count (160-400) X10*3/uL MPV (9.4-12.3) fL Immature Gran % (Auto) (0.0-0.4) % Neut % (Auto) (45-73) % Lymph % (Auto) (20-40) % [place] % (Auto) (2-11) % Eos % (Auto) (0-4) % Baso % (Auto) (0-2) % Lymph # (Auto) (1.2-4.9) X10*3/uL [place] # (Auto) (0.1-1.2) X10*3/uL Eos # (Auto) (0.0-0.4) X10*3/uL Baso # (Auto) (0.0-0.2) X10*3/uL Abs Immat Gran (auto) (0.00-0.03) X10*3/uL Absolute Neuts (auto) (2.0-8.3) x10*3/uL Absolute Nucleated RBC (0.0-0.012) X10*3/uL Nucleated RBC % (auto) (0.0-0.2) /100WBC PT (10.0-13.1) SEC INR (0.9-1.1) Sodium (135-145) mmol/L Potassium (3.3-5.1) mmol/L Chloride (96-108) mmol/L Carbon Dioxide (22-29) mmol/L Anion Gap (12-20) BUN (9-16) mg/dL Creatinine (0.5-1.4) mg/dL Estim Creat Clear Calc Estimated GFR Random Glucose (60-115) mg/dL Calcium (8.4-10.2) mg/dL Total Bilirubin (0.0-1.0) mg/dL Direct Bilirubin (0.0-0.5) mg/dL AST (5-31) U/L ALT (0-31) U/L Alkaline Phosphatase (39-117) U/L Ammonia 86 H (13-55) umol/L Troponin I High Sens 11.5 (<3.5-17.0) ng/L Total Protein (6.5-8.0) g/dL Albumin (3.5-5.0) g/dL Lipase (8-78) U/L Independent Interpretation I performed an independent interpretation of an: Plain X-Ray (Chest/left wrist x-ray, mild displaced fracture of left 6 and 7 ribs. Impacted displaced fracture of distal radius on the for left wrist.) and CT Scan (Head and cervical spine: No acute intracranial pathology, no C-spine fracture.) Radiology Impression Discussion of test interpretation with radiology: I have reviewed the radi ologist's reading. Discharge Plan Discharge Clinical Impression: Alcoholic cirrhosis of liver with ascites, Encephalopathy, hepatic, Fracture of left wrist, Multiple fractures of ribs Patient Disposition: Admitted As Inpatient
[2022-09-28 21:11] LABS: MANUAL DIFF FLAG NO
[2022-09-28 21:12] LABS: Basophils Percent Auto 0.3 % (0-2); Eosinophils Absolute Auto 0.1 X10*3/uL (0.0-0.4); Eosinophils Percent Auto 1.2 % (0-4); Hematocrit 26.3 % (37.0-47.0); Imm Gran Abs Auto 0.06 X10*3/uL (0.00-0.03); Imm Gran Pct Auto 0.5 % (0.0-0.4); Lymphocytes Absolute Auto 0.7 X10*3/uL (1.2-4.9); Lymphocytes Percent Auto 5.5 % (20-40); Mean Corpuscular HGB Conc 30.4 g/dl (31.0-35.0); Mean Corpuscular Hemoglobin 23.7 pg (27.0-33.0); Mean Corpuscular Volume 77.8 fL (80.0-98.0); Mean Platelet Volume 10.1 fL (9.4-12.3); Monocytes Absolute Auto 1.1 X10*3/uL (0.1-1.2); Monocytes Percent Auto 8.9 % (2-11); Neutrophils Percent Auto 83.6 % (45-73); Red Blood Count 3.38 X10*6/uL (4.20-5.50); Red Cell Distribution Width 20.7 % (11.0-16.0)
[2022-09-28 21:17] LABS: Platelet Count 97 X10*3/uL (160-400)
[2022-09-28 21:21] LABS: INTERNATIONAL NORM RATIO 1.6 (0.9-1.1); Prothrombin Time 18.8 SEC (10.0-13.1)
[2022-09-28 21:26] LABS: Ammonia 86 umol/L (13-55)
[2022-09-28 21:28] LABS: Alanine Aminotransferase 24 U/L (0-31); Albumin Level 2.5 g/dL (3.5-5.0); Alkaline Phosphatase 164 U/L (39-117); Anion Gap 6 (12-20); Aspartate Amino Transferase 44 U/L (5-31); Bilirubin Direct 0.5 mg/dL (0.0-0.5); Bilirubin Total 1.1 mg/dL (0.0-1.0); Blood Urea Nitrogen 18 mg/dL (9-16); Calcium 8.6 mg/dL (8.4-10.2); Carbon Dioxide 23 mmol/L (22-29); Chloride 109 mmol/L (96-108); Creatinine Clr Calc Pharmacy 50.7; Estimated Glomerular Filt Rate 59; Glucose Random 125 mg/dL (60-115); Lipase 17 U/L (8-78); Potassium 3.3 mmol/L (3.3-5.1); Sodium 135 mmol/L (135-145); Total Protein 7.2 g/dL (6.5-8.0)
[2022-09-28 21:35] LABS: Troponin-I High Sensitivity 11.5 ng/L (<3.5-17.0)
[2022-09-28 22:31] VITALS: BP 177/88; PULSE 96; RESP 16; TEMP 37; O2SAT 88
[2022-09-28 22:34] VITALS: O2SAT 93
[2022-09-29] VITALS (7 sets, daily range): BP systolic 142–170; BP diastolic 76–90; PULSE 87–102; RESP 16–24; TEMP 36–37; O2SAT 93–100; BMI 24.9
[2022-09-29] MEDS: Heparin Sodium,Porcine 5,000 UNIT/ML VIAL 5000 UNIT SUBCUT ×3 (00:41→23:36)
[2022-09-29] MEDS: Lactulose 20 GM/30 ML SOLUTION 30 GM PO (00:41)
[2022-09-29] MEDS: Lidocaine HCl 1 % MPF 5 ML VIAL 10 ML SUBCUT (00:42)
--- NOTE | 2022-09-29 01:00 | PM.IMHP ---
History of Present Illness Date of Service: 09/28/22 Chief Complaint: confusion, lethargy Day 6-year-old female past medical history of COPD, hypertension, alcoholic liver cirrhosis, with ascites undergoes weekly paracentesis comes into the hospital with reported confusion. Patient is very somnolent, history is obtained mostly from ED physician. She present to the ED with generalized weakness, multiple falls, and increased confusion. Patient otherwise denied any other symptoms to the ED physician. For me she is arousable but falls right back asleep. On arrival to the ED patient hemodynamically stable found to have 80% oxygen on room air, patient now placed on 2 L oxygen satting 100% labs are significant for WBC count of 12.0, hemoglobin of 8.0, hematocrit 26.3, this appears to be chronic, INR of 1.6, ammonia of 86, troponin of 11.5, UA positive for leukocyte Estrace but no bacteria unclear patient has been taking her lactulose at home imaging including head CT, cervical spine CT, rectus x-ray, x-ray, wrist x-ray showed but chest x-ray shows redemonstrated intra-articular fractures of the distal radius with nondisplaced fracture of the distal ulna, chest x-ray shows age indeterminate right-sided 7th and 8th rib fracture, new compared to 2020, chronic interstitial coarsening no focal airspace opacity patient started on lactulose in the ED and will be admitted for further management Review of Systems Review of Systems: Yes Unobtainable due to mental condition and Unobtainable due to mental status PMFSH Medical History Acute respiratory failure with hypoxia Alcohol abuse Alcohol abuse with withdrawal Alcoholic cirrhosis of liver with ascites Anxiety Coagulopathy COPD (chronic obstructive pulmonary disease) COPD (chronic obstructive pulmonary disease) 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) Elevated rheumatoid factor Hand paresthesia Hepatitis C Hepatomegaly History of abdominal paracentesis Hyperammonemia Microhematuria Pancytopenia Panic attacks Polysubstance abuse Thrombocytopenia Transaminitis Family History Father Family history of high blood pressure Mother Alive and well Surgical History History of delivery History of esophagogastroduodenoscopy (EGD) (~02/2017) Social History Household Members: Children Housing: House Do you presently have visiting nurse or other home services: No Alcohol intake: unknown Patient Tobacco Use Status: Former Tobacco user Tobacco use type: Cigarette Cigarettes Per Day: 4 Second Hand Smoke Exposure: No Advance Directives: Yes Advance Directives Information Provided: No Advance Directives on File: No Advance Directives Date on File: 08/16/20 Patient : No service: No Current occupational status: unemployed Meds Allergies Allergy/AdvReac Type Severity Reaction Status Date / Time No Known Allergies Allergy Verified 09/28/22 20:17 Active Medications: Current Medications Heparin Sodium (Porcine) (Heparin Sodium,Porcine 5,000 Unit/Ml Vial) 5,000 unit SUBCUT Q12H ABBY Last Admin: 09/29/22 00:41 Dose: 5,000 unit Lactulose (Lactulose 320 Gm/480 Ml Solution) 200 gm VA Q4H ABBY Ondansetron HCl (Ondansetron Hcl 4 Mg/2 Ml Vial) 4 mg IVPUSH Q8H PRN PRN Reason: Nausea and Vomiting Sodium Chloride (0.9 % Sodium Chloride Flush 3 Ml Syringe) 3 ml IVFLUSH QSHIFT [facility] Home Medications Medication Instructions Recorded Confirmed Last Taken Type buprenorphine 8 mg-naloxone 2 mg 1 film buccal DAILY 02/24/20 06/30/22 08/24/22 History sublingual film (Suboxone) furosemide 40 mg tablet 40 mg PO DAILY 02/24/20 06/30/22 08/24/22 History multivitamin 1 tab PO DAILY 02/24/20 06/30/22 08/24/22 History omeprazole 20 mg capsule,delayed 20 mg PO BID 02/24/20 06/30/22 08/24/22 History release sertraline 50 mg tablet 50 mg PO DAILY 02/24/20 06/30/22 08/24/22 History spironolactone 25 mg tablet 100 mg PO DAILY 02/24/20 06/30/22 08/24/22 History trazodone 50 mg tablet 50 mg PO BEDTIME 02/24/20 06/30/22 08/24/22 History docusate sodium 100 mg capsule 100 mg PO DAILY 07/20/20 06/30/22 08/24/22 History (DOK) ipratropium 20 mcg-albuterol 100 1 puff inhalation Q4H PRN 07/20/20 06/30/22 08/25/22 History mcg/actuation mist for inhalation Shortness Of Breath (Combivent Respimat) amlodipine 5 mg tablet 1 tab PO QAM 05/15/22 06/30/22 08/24/22 History fluticasone propionate 220 1 puff inhalation BID 05/15/22 06/30/22 08/24/22 History mcg/actuation HFA aerosol inhaler (Flovent HFA) fluticasone propionate 50 2 spray intranasal DAILY 05/15/22 06/30/22 08/24/22 History mcg/actuation nasal spray,suspension folic acid 1 mg tablet 1 tab PO QAM 05/15/22 06/30/22 08/24/22 History melatonin 5 mg tablet 1 - 2 tab PO BEDTIME PRN insomnia 05/15/22 06/30/22 08/24/22 History oxybutynin chloride 5 mg 1 tab PO QAM 05/15/22 06/30/22 08/24/22 History tablet,extended release 24 hr thiamine HCl (vitamin B1) 100 mg 1 tab PO QAM 05/15/22 06/30/22 08/24/22 History tablet acamprosate 333 mg tablet,delayed 666 mg PO 08/04/22 08/04/22 08/24/22 History release Physical Exam Vital Signs and Narrative: Vital Signs: Last Vital Signs Temp 98.6 F 09/28/22 22:31 Pulse 96 09/28/22 22:31 Resp 16 09/28/22 22:31 BP 177/88 H 09/28/22 22:31 Pulse Ox 93 09/28/22 22:34 O2 Del Method Nasal Cannula 09/28/22 22:34 O2 Flow Rate 2 09/28/22 22:34 BMI result Body Mass Index 26.3 Const: Other: patient somnolent but arousable and falls back asleep Eyes: General: appearance normal, both eyes and all related structures Resp: Effort & Inspection: normal respiratory effort Auscultation: clear to auscultation bilaterally Cardio: Rate: regular rate Rhythm: regular rhythm GI: Other: abdomen is distended, nontender no rebound or guarding Palpation (GI): Soft to palpation Auscultation: normal bowel sounds Skin: General skin exam: no rashes or lesions noted Extrem: General: Yes normal to inspection and Yes no pedal edema Results Labs 09/28/22 21:04 09/28/22 21:04 Labs: Laboratory Results - last 24 hr 09/28/22 09/28/22 09/28/22 21:04 21:04 21:04 MCV 77.8 L MCH 23.7 L MCHC 30.4 L RDW 20.7 H Plt Count 97 L MPV 10.1 Immature Gran % (Auto) 0.5 H Neut % (Auto) 83.6 H Lymph % (Auto) 5.5 L [place] % (Auto) 8.9 Eos % (Auto) 1.2 Baso % (Auto) 0.3 Lymph # (Auto) 0.7 L [place] # (Auto) 1.1 Eos # (Auto) 0.1 Baso # (Auto) 0.0 Abs Immat Gran (auto) 0.06 H Absolute Neuts (auto) 10.0 H Absolute Nucleated RBC 0.000 Nucleated RBC % (auto) 0.0 PT 18.8 H INR 1.6 H Anion Gap 6 L Estim Creat Clear Calc 50.7 Estimated GFR 59 Random Glucose 125 H Calcium 8.6 D Total Bilirubin 1.1 H Direct Bilirubin 0.5 AST 44 H ALT 24 Alkaline Phosphatase 164 H Ammonia Troponin I High Sens Total Protein 7.2 Albumin 2.5 L Lipase 17 09/28/22 09/28/22 21:04 21:04 MCV MCH MCHC RDW Plt Count MPV Immature Gran % (Auto) Neut % (Auto) Lymph % (Auto) [place] % (Auto) Eos % (Auto) Baso % (Auto) Lymph # (Auto) [place] # (Auto) Eos # (Auto) Baso # (Auto) Abs Immat Gran (auto) Absolute Neuts (auto) Absolute Nucleated RBC Nucleated RBC % (auto) PT INR Anion Gap Estim Creat Clear Calc Estimated GFR Random Glucose Calcium Total Bilirubin Direct Bilirubin AST ALT Alkaline Phosphatase Ammonia 86 H Troponin I High Sens 11.5 Total Protein Albumin Lipase Imaging Radiologist's Impressions: Impressions Chest X-Ray 09/28/22 20:36 IMPRESSION: 1. Age indeterminate right-sided seventh and eighth rib fractures, new compared to 07/20/2020 but with some degree of callus formation, suggestive of healing. Correlate with point tenderness. 2. Chronic interstitial coarsening, similar to slightly improved. 3. No focal airspace opacity. No pleural effusion or pneumothorax. 4. Suspect pulmonary hypertension. Elbow X-Ray 09/28/22 20:36 IMPRESSION: No acute fractures or subluxation. Shoulder X-Ray 09/28/22 20:36 IMPRESSION: Age indeterminate fracture of the left posterolateral fourth versus fifth rib. Correlate for point tenderness. Wrist X-Ray 09/28/22 20:36 IMPRESSION: Distal radial and ulnar fractures as above. Ankle X-Ray 09/28/22 21:30 IMPRESSION: 1. No acute fractures or malalignment. 2. Diffuse soft tissue thickening. Ribs X-Ray 09/28/22 21:30 IMPRESSION: 1. Mildly displaced fractures of the left sixth and seventh ribs as well as the posterolateral fifth rib. 2. Within a background of chronic interstitial coarsening, there are some subtle more focal opacities in the left apex that are nonspecific and could represent contusions in the setting of trauma. A short-term follow-up evaluation is recommended. Cervical Spine CT 09/28/22 21:37 IMPRESSION: No acute intracranial process seen Mild straightening of cervical lordosis without any visible acute fracture, dislocation or subluxation. Emphysema with bullous changes both lung apices and chronic interstitial lung disease left upper lobe. Head CT 09/28/22 21:37 IMPRESSION: No acute intracranial process seen Mild straightening of cervical lordosis without any visible acute fracture, dislocation or subluxation. Emphysema with bullous changes both lung apices and chronic interstitial lung disease left upper lobe. Assessment and Plan (1) Encephalopathy, hepatic: Status: Acute (2) Fracture of left wrist: Status: Acute (3) Multiple fractures of ribs: Status: Acute (4) Cirrhosis of liver with ascites: Status: Acute Plan 56-year-old female with past medical history of hepatic liver cirrhosis with weekly paracentesis comes into the hospital with feeling somnolent # hepatic encephalopathy - secondary to hyperammonemia - will obtain ABG to make sure there is no CO2 retention in the setting of COPD - will treat with lactulose with goal of 3-4 BMs daily - monitor mentation - has CT negative # left wrist fracture and multiple fracture of ribs - secondary to mechanical falls in the setting of confusion hepatic cephalopathy - p.r.n. pain control # cirrhosis of the liver - afebrile, no abdominal pain, low concern for SBP - gets weekly paracentesis - will consult IR for paracentesis - continue furosemide and spironolactone # COPD - unable to ask if she has any cough or sputum production but appears to be comfortable, with no respiratory distress - will titrate oxygen down with a goal of O2 of 88-94% - will obtain ABG - will continue her home inhalers meds are pending reconciliation by pharmacy DVT prophylaxis: Heparin subQ Given patient's need for further management of hepatic encephalopathy patient require minimum 2 nights inpatient hospital stay for further management and monitoring Time Spent With Patient Time: Total time managing care of this patient today ____ minutes. Quality Stroke Does the patient have a stroke diagnosis?: No VTE Prior VTE?: No VTE Risk Level:: Medical - moderate - high VTE Device Contraindication: Treatment Not Indicated VTE Drug Contraindication: N/A - Med Ordered
[2022-09-29 01:10] LABS: Appearance Urine Clear; Color Urine Yellow; Glucose Urine UA Negative (Negative); Leukocyte Esterase Urine Trace (Negative); Nitrite Urine Negative (Negative); PH 5.5 (5.0-9.0); Specific Gravity - Urine 1.015 (1.005-1.025); UMIC TRIGGER UACC YES; Urine Blood Large (3+) (Negative); Urine Ketones Negative (Negative); Urine Protein 300 (3+) mg/dL (Neg-Trace)
--- NOTE | 2022-09-29 01:28 | PC.NURSE ---
patient in bed with eyes closed patient showing no distress at this time patient was administered all medications with no issues at this time patient will continue to be monitored for safety
[2022-09-29] MEDS: 0.9 % Sodium Chloride Flush 3 ML SYRINGE IVFLUSH ×2 (01:31→21:51)
[2022-09-29 01:47] LABS: Bacteria Urine None Seen (None Seen); Hyaline Casts Urine 0-2 /LPF (0-2); RBC Urine >20 /HPF (0-2); WBC Urine 0-5 /HPF (0-5)
--- NOTE | 2022-09-29 04:55 | MHC.EDTECH ---
Patient found in regular clothing. T/w changed patient into hospital gown and red socks. Patient stated she needed to use the bathroom and was put on a bedpan. Patient stated she couldn't go so bedpan removed.
--- NOTE | 2022-09-29 05:09 | PC.NURSE ---
patient doctor ordered forthe lactulose to be held that was due to be given at 9206
--- NOTE | 2022-09-29 06:01 | PC.NURSE ---
patient in bed with eyes closed patient vitals are stable at this time patient is still waiting for a admitting bed to be transferred up to the floor patient will continue to be monitored for safety
--- NOTE | 2022-09-29 06:51 | MHC.EDTECH ---
Patient put on bedpan. She was cleaned up with help of water and fire technicianDona wynn, who placed a purewick. Patient boosted in bed, vitals taken, and given cellphone per request.
[2022-09-29] MEDS: cefTRIAXone sodium 1 GM in 0.9 % Sodium Chloride 50 ML IV (07:50)
[2022-09-29 08:04] LABS: ABG Base Excess -3.4 mmol/L; ABG HCO3 21 mmol/L (22-26); ABG pCO2 39 mmHg (32-45); ABG pH 7.34 (7.35-7.45); ABG pO2 47 mmHg (83-108)
--- NOTE | 2022-09-29 08:19 | PC.NURSE ---
assumed care of this pt at 0700. pt was found to be lethargic in bed, on 2L of O2 sating at 100%. Dr. Priest advised to take pt of O2 as she has COPD and does not need to sat 100%. pt now sating 100% on RA pt had home kranthi bandage wrapped around right elbow with medium sized hematoma from fall at home pt was found to have no IV access although admitted IV placed in right forearm, medicated per may ABGs obtained by rt lactulose held all night per report from saad gaona ammonia level elevated, Dr. Ceja informed to give am lactulose dose lactulose not loaded in pyxis, pharmacy called [facility]
[2022-09-29] MEDS: Lactulose 320 GM/480 ML SOLUTION 200 GM PR (08:49)
--- NOTE | 2022-09-29 09:06 | PHA.MEDREC ---
Addendum entered by Natali Tatum [facility] 10/02/22 10:36: At Dr. San request went to speak to patient again. She still states that she doesn't take all of her home meds every day but claims she takes the important ones . I tried to ask which ones were the ones she would be likely to skip and why but she wouldn't confirm this information. I was able to add furosemide, spironolactone, and omeprazole to her home med list based on her confirmation. Original Note: Pharmacy Consult ? Medication Reconciliation Pharmacy has completed the medication reconciliation. Patient not sure of medications. Patient uses medboxes from [facility]. Patient says she takes the brown pill out. Spoke with pharmacist at [facility], and she was unsure of any brown pills. Could be rifaximin. Since patient should be on medication I left on list. Wendy Henry, KimberlyD
[2022-09-29] MEDS: amLODIPine Besylate 5 MG TABLET PO (09:27)
[2022-09-29] MEDS: oxyBUTYnin chloride ER 5 MG TAB.ER.24 PO (09:44)
[2022-09-29] MEDS: Thiamine HCL 100 MG TABLET PO (09:44)
[2022-09-29] MEDS: Buprenorphine/Naloxone 8/2 mg FILM 1 FILM BUCCAL (09:44)
[2022-09-29] MEDS: Docusate Sodium 100 MG CAPSULE PO (09:44)
[2022-09-29] MEDS: Folic Acid 1 MG TABLET PO (09:48)
--- NOTE | 2022-09-29 10:03 | PC.NURSE ---
pt was found with an kranthi bandage and an old gauze wrap to both upper extremities. when asked about them, the pt stated that she had applied the kranthi bandage at home and EMS wrapped her other arm with gauze due to a skin tear from her fall this RN and Vilma PACHECO unwrapped both bandages to find a medium sized hematoma to the right arm/elbow and a skin tear to the left upper arm. the skin tear had stuck to the pad that was applied to the pt, that when removing it caused more skin to tear. NS and sterile water were used to soak the bandages and wound for easier and a more pain free removal. Dr. San aided the removal and bandaged the pt's arm back up after examination the pt was also found to have large bruising to the left thigh and hip, left shoulder, and right forearm/elbow. Dr. San was also made aware and examined the pt pt was washed up, made comfortable, and repositioned. vss. wctm
[2022-09-29 10:15] LABS: MANUAL DIFF FLAG NO
[2022-09-29] MEDS: Sertraline HCL 50 MG TABLET 150 MG PO (10:20)
[2022-09-29 10:22] LABS: Basophils Percent Auto 0.4 % (0-2); Eosinophils Absolute Auto 0.1 X10*3/uL (0.0-0.4); Hematocrit 29.1 % (37.0-47.0); Hemoglobin 8.7 g/dl (12.0-16.0); Imm Gran Abs Auto 0.04 X10*3/uL (0.00-0.03); Imm Gran Pct Auto 0.4 % (0.0-0.4); Lymphocytes Absolute Auto 0.6 X10*3/uL (1.2-4.9); Mean Corpuscular HGB Conc 29.9 g/dl (31.0-35.0); Mean Corpuscular Hemoglobin 23.6 pg (27.0-33.0); Mean Corpuscular Volume 78.9 fL (80.0-98.0); Mean Platelet Volume 10.3 fL (9.4-12.3); Monocytes Absolute Auto 0.9 X10*3/uL (0.1-1.2); Monocytes Percent Auto 9.3 % (2-11); Neutrophils Absolute Auto 7.5 x10*3/uL (2.0-8.3); Neutrophils Percent Auto 81.9 % (45-73); Platelet Count 102 X10*3/uL (160-400); Red Blood Count 3.69 X10*6/uL (4.20-5.50); White Blood Count 9.2 X10*3/uL (4.8-10.8)
[2022-09-29] MEDS: rifAXIMin 550 MG TABLET PO ×2 (10:26→21:50)
[2022-09-29 10:48] LABS: Anion Gap 11 (12-20); Blood Urea Nitrogen 19 mg/dL (9-16); Calcium 8.8 mg/dL (8.4-10.2); Carbon Dioxide 19 mmol/L (22-29); Chloride 112 mmol/L (96-108); Creatinine Clr Calc Pharmacy 50.2; Estimated Glomerular Filt Rate 58; Glucose Random 143 mg/dL (60-115); Potassium 3.3 mmol/L (3.3-5.1); Sodium 139 mmol/L (135-145)
--- NOTE | 2022-09-29 10:54 | PC.NURSE ---
Pt used commode with 2xthe orthopedic specialty hospitalist
[2022-09-29 11:04] LABS: ABG Refer to POC result
--- NOTE | 2022-09-29 12:38 | MHC.CM.PN ---
This service writer advisor met with patient along with dispatcher radio. Patient was unable to stay awake to complete CM assessment. CM will continue to follow for d/c planning needs and attemt M assessment when mentation improves.
--- NOTE | 2022-09-29 12:39 | P.PNIM_ITS ---
Subjective Subjective Date of Service: 09/29/22 Interval History: Seen and evaluated this morning More awake after a dose of [place] lactulose Denies any pain, fever or chills Large distended abdomen No other overnight events Review of Systems Review of Systems: Yes all other systems are reviewed and are negative Physical Exam Vital Signs: Vital Signs: Last Vital Signs Temp 98.4 F 09/29/22 06:45 Pulse 102 H 09/29/22 09:29 Resp 24 H 09/29/22 09:29 BP 162/90 H 09/29/22 09:29 Pulse Ox 100 09/29/22 09:29 O2 Del Method Room Air 09/29/22 09:29 O2 Flow Rate 2 09/29/22 06:45 BMI result Body Mass Index 26.3 Const: Other: Constitutional : Awake, interactive, mildly anxious Neck : Normal inspection, Supple Cardiovascular : RRR, no JVP, no lower extremity edema Respiratory : good bilateral air entry, no crackles, wheezes or rhonchi Gastrointestinal: soft, lax, Normal bowel sounds, Non tender, distended extensively Skin : Warm, Dry, large bruise over Left hip, LUE skin sloughing Neurological : Alert & oriented x3, No focal deficit Objective Data Active Medications Amlodipine Besylate (Amlodipine Besylate 5 Mg Tablet) 5 mg PO DAILY [facility]; Protocol Last Admin: 09/29/22 09:27 Dose: 5 mg Documented By: CINTHYA Baclofen (Baclofen 10 Mg Tablet) 10 mg PO BEDTIME PRN PRN Reason: muscle spasm Buprenorphine/Naloxone (Buprenorphine/Naloxone 8/2 Mg Film) 1 film BUCCAL DAILY [facility] Last Admin: 09/29/22 09:44 Dose: 1 film Documented By: CINTHYA Docusate Sodium (Docusate Sodium 100 Mg Capsule) 100 mg PO DAILY [facility] Last Admin: 09/29/22 09:44 Dose: 100 mg Documented By: CINTHYA Fluticasone Propionate (Fluticasone Propionate 250 Mcg Blst.W.Dev) 1 puff INHALE RBID [facility] Folic Acid (Folic Acid 1 Mg Tablet) 1 mg PO DAILY [facility] Last Admin: 09/29/22 11:50 Dose: Not Given Documented By: CINTHYA Non-Admin Reason: Duplicate Order Heparin Sodium (Porcine) (Heparin Sodium,Porcine 5,000 Unit/Ml Vial) 5,000 unit SUBCUT Q12H [facility] Last Admin: 09/29/22 12:10 Dose: 5,000 unit Documented By: CINTHYA Ceftriaxone Sodium 1 gm/ (Sodium Chloride) 50 mls @ 100 mls/hr IV Q24H [facility] Last Infusion: 09/29/22 08:45 Dose: 0 mls/hr Documented By: CINTHYA Lactulose (Lactulose 20 Gm/30 Ml Solution) 20 gm PO BID [facility] Ondansetron HCl (Ondansetron Hcl 4 Mg/2 Ml Vial) 4 mg IVPUSH Q8H PRN PRN Reason: Nausea and Vomiting Oxybutynin Chloride (Oxybutynin Chloride Er 5 Mg Tab.Er.24) 5 mg PO DAILY [facility] Last Admin: 09/29/22 11:51 Dose: Not Given Documented By: CINTHYA Non-Admin Reason: Duplicate Order Rifaximin (Rifaximin 550 Mg Tablet) 550 mg PO BID [facility] Last Admin: 09/29/22 10:26 Dose: 550 mg Documented By: CINTHYA Sertraline HCl (Sertraline Hcl 50 Mg Tablet) 150 mg PO DAILY [facility] Last Admin: 09/29/22 10:20 Dose: 150 mg Documented By: CINTHYA Sodium Chloride (0.9 % Sodium Chloride Flush 3 Ml Syringe) 3 ml IVFLUSH QSHIFT [facility] Last Admin: 09/29/22 07:57 Dose: Not Given Documented By: CINTHYA Non-Admin Reason: Med Not Available Thiamine HCl (Thiamine Hcl 100 Mg Tablet) 100 mg PO DAILY [facility] Last Admin: 09/29/22 11:51 Dose: Not Given Documented By: CINTHYA Non-Admin Reason: Duplicate Order Trazodone HCl (Trazodone Hcl 100 Mg Tablet) 100 mg PO BEDTIME [facility] Labs 09/29/22 10:06 09/29/22 10:06 Labs: Laboratory Results - last 24 hr 09/28/22 09/28/22 09/28/22 21:04 21:04 21:04 MCV 77.8 L MCH 23.7 L MCHC 30.4 L RDW 20.7 H Plt Count 97 L MPV 10.1 Immature Gran % (Auto) 0.5 H Neut % (Auto) 83.6 H Lymph % (Auto) 5.5 L [place] % (Auto) 8.9 Eos % (Auto) 1.2 Baso % (Auto) 0.3 Lymph # (Auto) 0.7 L [place] # (Auto) 1.1 Eos # (Auto) 0.1 Baso # (Auto) 0.0 Abs Immat Gran (auto) 0.06 H Absolute Neuts (auto) 10.0 H Absolute Nucleated RBC 0.000 Nucleated RBC % (auto) 0.0 PT 18.8 H INR 1.6 H O2 Saturation ABG pH at Pt Temp ABG pCO2 at Pt Temp ABG pO2 at Pt Temp ABG HCO3 ABG Base Excess (Actual) Anion Gap 6 L Estim Creat Clear Calc 50.7 Estimated GFR 59 Random Glucose 125 H Calcium 8.6 D Total Bilirubin 1.1 H Direct Bilirubin 0.5 AST 44 H ALT 24 Alkaline Phosphatase 164 H Ammonia Troponin I High Sens Total Protein 7.2 Albumin 2.5 L Lipase 17 Urine Color Urine Appearance Urine pH Ur Specific [place] Urine Protein Urine Glucose (UA) Urine Ketones Urine Blood Urine Nitrite Ur Leukocyte Esterase Urine RBC Urine WBC Ur Squamous Epith Cells Urine Bacteria Hyaline Casts 09/28/22 09/28/22 09/29/22 21:04 21:04 01:01 MCV MCH MCHC RDW Plt Count MPV Immature Gran % (Auto) Neut % (Auto) Lymph % (Auto) [place] % (Auto) Eos % (Auto) Baso % (Auto) Lymph # (Auto) [place] # (Auto) Eos # (Auto) Baso # (Auto) Abs Immat Gran (auto) Absolute Neuts (auto) Absolute Nucleated RBC Nucleated RBC % (auto) PT INR O2 Saturation ABG pH at Pt Temp ABG pCO2 at Pt Temp ABG pO2 at Pt Temp ABG HCO3 ABG Base Excess (Actual) Anion Gap Estim Creat Clear Calc Estimated GFR Random Glucose Calcium Total Bilirubin Direct Bilirubin AST ALT Alkaline Phosphatase Ammonia 86 H Troponin I High Sens 11.5 Total Protein Albumin Lipase Urine Color Yellow Urine Appearance Clear Urine pH 5.5 Ur Specific [place] 1.015 Urine Protein 300 (3+) H Urine Glucose (UA) Negative Urine Ketones Negative Urine Blood Large (3+) H Urine Nitrite Negative Ur Leukocyte Esterase Trace H Urine RBC >20 H Urine WBC 0-5 Ur Squamous Epith Cells 3-5 Urine Bacteria None Seen Hyaline Casts 0-2 09/29/22 09/29/2209/29/23 07:54 10:06 10:06 MCV 78.9 L MCH 23.6 L MCHC 29.9 L RDW 21.0 H Plt Count 102 L MPV 10.3 Immature Gran % (Auto) 0.4 Neut % (Auto) 81.9 H Lymph % (Auto) 7.0 L [place] % (Auto) 9.3 Eos % (Auto) 1.0 Baso % (Auto) 0.4 Lymph # (Auto) 0.6 L [place] # (Auto) 0.9 Eos # (Auto) 0.1 Baso # (Auto) 0.0 Abs Immat Gran (auto) 0.04 H Absolute Neuts (auto) 7.5 Absolute Nucleated RBC 0.000 Nucleated RBC % (auto) 0.0 PT INR O2 Saturation 72.0 ABG pH at Pt Temp 7.34 L ABG pCO2 at Pt Temp 39 ABG pO2 at Pt Temp 47 L* ABG HCO3 21 L ABG Base Excess (Actual) -3.4 Anion Gap 11 L Estim Creat Clear Calc 50.2 Estimated GFR 58 Random Glucose 143 H Calcium 8.8 Total Bilirubin Direct Bilirubin AST ALT Alkaline Phosphatase Ammonia Troponin I High Sens Total Protein Albumin Lipase Urine Color Urine Appearance Urine pH Ur Specific [place] Urine Protein Urine Glucose (UA) Urine Ketones Urine Blood Urine Nitrite Ur Leukocyte Esterase Urine RBC Urine WBC Ur Squamous Epith Cells Urine Bacteria Hyaline Casts Assessment and Plan (1) Encephalopathy, hepatic: Status: Acute (2) Cirrhosis of liver with ascites: Status: Acute Plan 56-year-old female with past medical history of hepatic liver cirrhosis with weekly paracentesis comes into the hospital with feeling somnolent # hepatic encephalopathy secondary to hyperammonemia Head CT negative lactulose with goal of 3-4 BMs daily monitor mentation # left wrist fracture and multiple fracture of ribs secondary to mechanical falls in the setting of confusion hepatic cephalopathy p.r.n. pain control # Large asictes 2/2 cirrhosis of the liver no abdominal pain gets weekly paracentesis IR for paracentesis today continue furosemide and spironolactone # COPD no in exacerbation continue her home inhalers DVT prophylaxis: Heparin subQ Given patient's need for further management of hepatic encephalopathy patient require overnight inpatient hospital stay for further management and monitoring Time Spent With Patient Time: Total time managing care of this patient today ____ minutes. Quality Stroke Does the patient have a stroke diagnosis?: No VTE Prior VTE?: No VTE Risk Level:: Medical - moderate - high VTE Device Contraindication: Treatment Not Indicated VTE Drug Contraindication: N/A - Med Ordered
[2022-09-29] MEDS: Lactulose 20 GM/30 ML SOLUTION PO ×2 (13:19→21:50)
--- NOTE | 2022-09-29 19:52 | PC.NURSE ---
Attempted to call report to ext [phone]. No answer.
--- NOTE | 2022-09-29 20:03 | PC.NURSE ---
Report given to Melanie at ext [phone]. Verbalized no questions and is ready to accept patient.
[2022-09-29] MEDS: traZODone HCL 100 MG TABLET PO (21:50)
[2022-09-30 04:00] VITALS: BP 151/70; PULSE 98; RESP 16; TEMP 37.1; O2SAT 90
[2022-09-30 05:21] LABS: Hematocrit 24.7 % (37.0-47.0); Hemoglobin 7.5 g/dl (12.0-16.0); Mean Corpuscular HGB Conc 30.4 g/dl (31.0-35.0); Mean Corpuscular Hemoglobin 23.7 pg (27.0-33.0); Mean Corpuscular Volume 78.2 fL (80.0-98.0); Mean Platelet Volume 10.1 fL (9.4-12.3); Red Blood Count 3.16 X10*6/uL (4.20-5.50); Red Cell Distribution Width 21.2 % (11.0-16.0); White Blood Count 8.7 X10*3/uL (4.8-10.8)
[2022-09-30 05:26] LABS: Platelet Count 93 X10*3/uL (160-400)
[2022-09-30 05:31] LABS: INTERNATIONAL NORM RATIO 1.6 (0.9-1.1)
[2022-09-30 05:41] LABS: Anion Gap 10 (12-20); Blood Urea Nitrogen 23 mg/dL (9-16); Calcium 8.5 mg/dL (8.4-10.2); Carbon Dioxide 20 mmol/L (22-29); Chloride 115 mmol/L (96-108); Estimated Glomerular Filt Rate 52; Glucose Random 99 mg/dL (60-115); Potassium 3.2 mmol/L (3.3-5.1); Sodium 142 mmol/L (135-145)
[2022-09-30] MEDS: cefTRIAXone sodium 1 GM in 0.9 % Sodium Chloride 50 ML IV (05:56)
[2022-09-30 07:36] VITALS: BP 154/70; PULSE 89; RESP 18; TEMP 36.2; O2SAT 94
[2022-09-30] MEDS: Lactulose 20 GM/30 ML SOLUTION PO ×2 (08:19→20:54)
[2022-09-30] MEDS: amLODIPine Besylate 5 MG TABLET PO (08:19)
[2022-09-30] MEDS: Folic Acid 1 MG TABLET PO (08:19)
[2022-09-30] MEDS: rifAXIMin 550 MG TABLET PO ×2 (08:19→20:54)
[2022-09-30] MEDS: Buprenorphine/Naloxone 8/2 mg FILM 1 FILM BUCCAL (08:19)
[2022-09-30] MEDS: Thiamine HCL 100 MG TABLET PO (08:19)
[2022-09-30] MEDS: Sertraline HCL 50 MG TABLET 150 MG PO (08:19)
[2022-09-30] MEDS: Potassium Chloride Packet 20 MEQ PACKET 40 MEQ PO ×2 (08:19→10:03)
[2022-09-30] MEDS: oxyBUTYnin chloride ER 5 MG TAB.ER.24 PO (08:20)
[2022-09-30] MEDS: Docusate Sodium 100 MG CAPSULE PO (08:20)
[2022-09-30] MEDS: 0.9 % Sodium Chloride Flush 3 ML SYRINGE IVFLUSH ×3 (08:27→20:56)
[2022-09-30 08:42] VITALS: PULSE 89; RESP 18; O2SAT 98
[2022-09-30] MEDS: Fluticasone Propionate 250 MCG BLST.W.DEV 1 PUFF INHALE ×2 (08:42→19:53)
--- NOTE | 2022-09-30 11:11 | P.PNIM_ITS ---
Subjective Subjective Date of Service: 09/30/22 Interval History: Seen and evaluated this morning reports feeling sleepy having bowel movement Paracentesis was not done, postpone Denies any pain, fever or chills Review of Systems Review of Systems: Yes all other systems are reviewed and are negative Physical Exam Vital Signs: Vital Signs: Last Vital Signs Temp 97.2 F 09/30/22 07:36 Pulse 89 09/30/22 08:42 Resp 18 09/30/22 08:42 BP 154/70 H 09/30/22 07:36 Pulse Ox 94 09/30/22 07:36 O2 Del Method Nasal Cannula 09/30/22 07:36 O2 Flow Rate 2 09/30/22 07:36 BMI result Body Mass Index 24.9 Const: Other: Constitutional : Awake, interactive, mildly anxious Neck : Normal inspection, Supple Cardiovascular : RRR, no JVP, no lower extremity edema Respiratory : good bilateral air entry, no crackles, wheezes or rhonchi Gastrointestinal: soft, lax, Normal bowel sounds, Non tender, distended extensively Skin : Warm, Dry, large bruise over Left hip, LUE skin sloughing Neurological : Alert & oriented x3, No focal deficit Objective Data Active Medications Amlodipine Besylate (Amlodipine Besylate 5 Mg Tablet) 5 mg PO DAILY [facility]; Protocol Last Admin: 09/30/22 08:19 Dose: 5 mg Documented By: ALLAN Baclofen (Baclofen 10 Mg Tablet) 10 mg PO BEDTIME PRN PRN Reason: muscle spasm Buprenorphine/Naloxone (Buprenorphine/Naloxone 8/2 Mg Film) 1 film BUCCAL DAILY [facility] Last Admin: 09/30/22 08:19 Dose: 1 film Documented By: ALLAN Docusate Sodium (Docusate Sodium 100 Mg Capsule) 100 mg PO DAILY [facility] Last Admin: 09/30/22 08:20 Dose: 100 mg Documented By: ALLAN Fluticasone Propionate (Fluticasone Propionate 250 Mcg Blst.W.Dev) 1 puff INHALE RBID [facility] Last Admin: 09/30/22 08:42 Dose: 1 puff Documented By: JENNIFER Folic Acid (Folic Acid 1 Mg Tablet) 1 mg PO DAILY [facility] Last Admin: 09/30/22 08:19 Dose: 1 mg Documented By: ALLAN Heparin Sodium (Porcine) (Heparin Sodium,Porcine 5,000 Unit/Ml Vial) 5,000 unit SUBCUT Q12H [facility] Last Admin: 09/29/22 23:36 Dose: 5,000 unit Documented By: CHRIS Ceftriaxone Sodium 1 gm/ (Sodium Chloride) 50 mls @ 100 mls/hr IV Q24H [facility] Last Infusion: 09/30/22 06:45 Dose: 0 mls/hr Documented By: CHRIS Lactulose (Lactulose 20 Gm/30 Ml Solution) 20 gm PO BID [facility] Last Admin: 09/30/22 08:19 Dose: 20 gm Documented By: ALLAN Ondansetron HCl (Ondansetron Hcl 4 Mg/2 Ml Vial) 4 mg IVPUSH Q8H PRN PRN Reason: Nausea and Vomiting Oxybutynin Chloride (Oxybutynin Chloride Er 5 Mg Tab.Er.24) 5 mg PO DAILY [facility] Last Admin: 09/30/22 08:20 Dose: 5 mg Documented By: ALLAN Rifaximin (Rifaximin 550 Mg Tablet) 550 mg PO BID [facility] Last Admin: 09/30/22 08:19 Dose: 550 mg Documented By: ALLAN Sertraline HCl (Sertraline Hcl 50 Mg Tablet) 150 mg PO DAILY [facility] Last Admin: 09/30/22 08:19 Dose: 150 mg Documented By: ALLAN Sodium Chloride (0.9 % Sodium Chloride Flush 3 Ml Syringe) 3 ml IVFLUSH QSHIFT [facility] Last Admin: 09/30/22 08:27 Dose: 3 ml Documented By: ALLAN Thiamine HCl (Thiamine Hcl 100 Mg Tablet) 100 mg PO DAILY [facility] Last Admin: 09/30/22 08:19 Dose: 100 mg Documented By: ALLAN Trazodone HCl (Trazodone Hcl 100 Mg Tablet) 100 mg PO BEDTIME [facility] Last Admin: 09/29/22 21:50 Dose: 100 mg Documented By: CHRIS Labs 09/30/22 04:50 09/30/22 04:50 Labs: Laboratory Results - last 24 hr 09/30/22 09/30/22 09/30/22 04:50 04:50 04:50 MCV 78.2 L MCH 23.7 L MCHC 30.4 L RDW 21.2 H Plt Count 93 L MPV 10.1 Absolute Nucleated RBC 0.000 Nucleated RBC % (auto) 0.0 PT 19.0 H INR 1.6 H Anion Gap 10 L Estim Creat Clear Calc 44.0 Estimated GFR 52 Random Glucose 99 Calcium 8.5 Assessment and Plan (1) Encephalopathy, hepatic: Status: Acute (2) Cirrhosis of liver with ascites: Status: Acute Plan 56-year-old female with past medical history of hepatic liver cirrhosis with weekly paracentesis comes into the hospital with feeling somnolent # hepatic encephalopathy secondary to hyperammonemia Head CT negative lactulose with goal of 3-4 BMs daily monitor mentation # left wrist fracture and multiple fracture of ribs secondary to mechanical falls in the setting of confusion hepatic cephalopathy p.r.n. pain control # Large asictes 2/2 cirrhosis of the liver no abdominal pain gets weekly paracentesis IR for paracentesis postpone until Sunday continue furosemide and spironolactone # COPD no in exacerbation continue her home inhalers DVT prophylaxis: Heparin subQ Given patient's need for further management of hepatic encephalopathy patient require overnight inpatient hospital stay for further management and monitoring Time Spent With Patient Time: Total time managing care of this patient today ____ minutes. Quality Stroke Does the patient have a stroke diagnosis?: No VTE Prior VTE?: No VTE Risk Level:: Medical - moderate - high VTE Device Contraindication: Treatment Not Indicated VTE Drug Contraindication: N/A - Med Ordered
[2022-09-30] MEDS: Heparin Sodium,Porcine 5,000 UNIT/ML VIAL 5000 UNIT SUBCUT (11:34)
[2022-09-30 15:13] VITALS: BP 152/72; PULSE 87; RESP 18; TEMP 36.6; O2SAT 94
[2022-09-30 19:30] VITALS: BP 170/77; PULSE 86; RESP 16; TEMP 36.6; O2SAT 95
[2022-09-30 19:57] VITALS: PULSE 82; RESP 16; O2SAT 96
[2022-09-30] MEDS: traZODone HCL 100 MG TABLET PO (20:55)
[2022-10-01] MEDS: Heparin Sodium,Porcine 5,000 UNIT/ML VIAL 5000 UNIT SUBCUT ×2 (00:07→11:22)
[2022-10-01 04:00] VITALS: BP 135/66; PULSE 90; RESP 18; TEMP 37.4; O2SAT 94
[2022-10-01] MEDS: cefTRIAXone sodium 1 GM in 0.9 % Sodium Chloride 50 ML IV (06:13)
[2022-10-01 06:48] LABS: Hematocrit 25.6 % (37.0-47.0); Hemoglobin 7.5 g/dl (12.0-16.0); Mean Corpuscular HGB Conc 29.3 g/dl (31.0-35.0); Mean Corpuscular Hemoglobin 23.7 pg (27.0-33.0); Mean Platelet Volume 10.4 fL (9.4-12.3); Red Blood Count 3.16 X10*6/uL (4.20-5.50); Red Cell Distribution Width 21.4 % (11.0-16.0)
[2022-10-01 07:04] VITALS: BP 153/74; PULSE 92; RESP 20; TEMP 36.7; O2SAT 94
[2022-10-01 07:04] LABS: Anion Gap 13 (12-20); Blood Urea Nitrogen 26 mg/dL (9-16); Calcium 7.9 mg/dL (8.4-10.2); Carbon Dioxide 18 mmol/L (22-29); Chloride 113 mmol/L (96-108); Creatinine Clr Calc Pharmacy 31.3; Estimated Glomerular Filt Rate 35; Glucose Random 128 mg/dL (60-115); Potassium 3.7 mmol/L (3.3-5.1); Sodium 140 mmol/L (135-145)
[2022-10-01 07:07] LABS: Platelet Count 98 X10*3/uL (160-400)
[2022-10-01 07:50] VITALS: PULSE 92; RESP 20; O2SAT 98
[2022-10-01] MEDS: Fluticasone Propionate 250 MCG BLST.W.DEV 1 PUFF INHALE ×2 (08:22→19:59)
[2022-10-01] MEDS: 0.9 % Sodium Chloride Flush 3 ML SYRINGE IVFLUSH ×2 (08:36→17:50)
[2022-10-01] MEDS: Lactulose 20 GM/30 ML SOLUTION PO ×2 (08:37→20:34)
[2022-10-01] MEDS: rifAXIMin 550 MG TABLET PO ×2 (08:37→20:34)
[2022-10-01] MEDS: oxyBUTYnin chloride ER 5 MG TAB.ER.24 PO (08:37)
[2022-10-01] MEDS: Thiamine HCL 100 MG TABLET PO (08:37)
[2022-10-01] MEDS: amLODIPine Besylate 5 MG TABLET PO (08:37)
[2022-10-01] MEDS: Sertraline HCL 50 MG TABLET 150 MG PO (08:37)
[2022-10-01] MEDS: Buprenorphine/Naloxone 8/2 mg FILM 1 FILM BUCCAL (08:37)
[2022-10-01] MEDS: Docusate Sodium 100 MG CAPSULE PO (08:37)
[2022-10-01] MEDS: Folic Acid 1 MG TABLET PO (08:39)
--- NOTE | 2022-10-01 09:45 | HO.PM.IMPN ---
Subjective Subjective Date of Service: 10/01/22 Interval History: Seen and evaluated this morning having bowel movement Paracentesis was not done, postpone until tomorrow Denies any pain, fever or chills Review of Systems Review of Systems: Yes all other systems are reviewed and are negative Physical Exam Vital Signs: Vital Signs: Last Vital Signs Temp 98.1 F 10/01/22 07:04 Pulse 92 10/01/22 07:04 Resp 20 10/01/22 07:04 BP 153/74 H 10/01/22 07:04 Pulse Ox 94 10/01/22 07:04 O2 Del Method Nasal Cannula 10/01/22 07:04 O2 Flow Rate 2 10/01/22 07:04 BMI result Body Mass Index 24.9 Const: Other: Constitutional : Awake, interactive, mildly anxious Neck : Normal inspection, Supple Cardiovascular : RRR, no JVP, no lower extremity edema Respiratory : good bilateral air entry, no crackles, wheezes or rhonchi Gastrointestinal: soft, lax, Normal bowel sounds, Non tender, distended extensively Skin : Warm, Dry, large bruise over Left hip, LUE skin sloughing Neurological : Alert & oriented x3, No focal deficit Objective Data Active Medications Amlodipine Besylate (Amlodipine Besylate 5 Mg Tablet) 5 mg PO DAILY [facility]; Protocol Last Admin: 10/01/22 08:37 Dose: 5 mg Documented By: JACOBO Baclofen (Baclofen 10 Mg Tablet) 10 mg PO BEDTIME PRN PRN Reason: muscle spasm Buprenorphine/Naloxone (Buprenorphine/Naloxone 8/2 Mg Film) 1 film BUCCAL DAILY [facility] Last Admin: 10/01/22 08:37 Dose: 1 film Documented By: JACOBO Docusate Sodium (Docusate Sodium 100 Mg Capsule) 100 mg PO DAILY [facility] Last Admin: 10/01/22 08:37 Dose: 100 mg Documented By: JACOBO Fluticasone Propionate (Fluticasone Propionate 250 Mcg Blst.W.Dev) 1 puff INHALE RBID [facility] Last Admin: 10/01/22 08:22 Dose: 1 puff Documented By: JOE Folic Acid (Folic Acid 1 Mg Tablet) 1 mg PO DAILY [facility] Last Admin: 10/01/22 08:39 Dose: 1 mg Documented By: JACOBO Heparin Sodium (Porcine) (Heparin Sodium,Porcine 5,000 Unit/Ml Vial) 5,000 unit SUBCUT Q12H [facility] Last Admin: 10/01/22 00:07 Dose: 5,000 unit Documented By: ZABRINA Ceftriaxone Sodium 1 gm/ (Sodium Chloride) 50 mls @ 100 mls/hr IV Q24H [facility] Last Infusion: 10/01/22 06:53 Dose: 0 mls/hr Documented By: CASTILVin Lactulose (Lactulose 20 Gm/30 Ml Solution) 20 gm PO BID [facility] Last Admin: 10/01/22 08:37 Dose: 20 gm Documented By: JACOBO Ondansetron HCl (Ondansetron Hcl 4 Mg/2 Ml Vial) 4 mg IVPUSH Q8H PRN PRN Reason: Nausea and Vomiting Oxybutynin Chloride (Oxybutynin Chloride Er 5 Mg Tab.Er.24) 5 mg PO DAILY [facility] Last Admin: 10/01/22 08:37 Dose: 5 mg Documented By: JACOBO Rifaximin (Rifaximin 550 Mg Tablet) 550 mg PO BID [facility] Last Admin: 10/01/22 08:37 Dose: 550 mg Documented By: JACOBO Sertraline HCl (Sertraline Hcl 50 Mg Tablet) 150 mg PO DAILY [facility] Last Admin: 10/01/22 08:37 Dose: 150 mg Documented By: JACOBO Sodium Chloride (0.9 % Sodium Chloride Flush 3 Ml Syringe) 3 ml IVFLUSH QSHIFT [facility] Last Admin: 10/01/22 08:36 Dose: 3 ml Documented By: JACOBO Thiamine HCl (Thiamine Hcl 100 Mg Tablet) 100 mg PO DAILY [facility] Last Admin: 10/01/22 08:37 Dose: 100 mg Documented By: JACOBO Trazodone HCl (Trazodone Hcl 100 Mg Tablet) 100 mg PO BEDTIME [facility] Last Admin: 09/30/22 20:55 Dose: 100 mg Documented By: ZABRINA Labs 10/01/22 05:19 10/01/22 05:18 Labs: Laboratory Results - last 24 hr 10/01/22 10/01/22 05:18 05:19 MCV 81.0 MCH 23.7 L MCHC 29.3 L RDW 21.4 H Plt Count 98 L MPV 10.4 Absolute Nucleated RBC 0.000 Nucleated RBC % (auto) 0.0 Anion Gap 13 Estim Creat Clear Calc 31.3 Estimated GFR 35 Random Glucose 128 H Calcium 7.9 L D Assessment and Plan (1) Encephalopathy, hepatic: Status: Acute (2) Cirrhosis of liver with ascites: Status: Acute (3) Acute kidney injury: Status: Acute Plan 56-year-old female with past medical history of hepatic liver cirrhosis with weekly paracentesis comes into the hospital with feeling somnolent # hepatic encephalopathy improving secondary to hyperammonemia Head CT negative lactulose with goal of 3-4 BMs daily monitor mentation # left wrist fracture and multiple fracture of ribs secondary to mechanical falls in the setting of confusion hepatic cephalopathy p.r.n. pain control # VLADIMRI Cr up to 1.5 check urine studies monitor I\O give Albumin follow BMP # Large asictes 2/2 cirrhosis of the liver no abdominal pain gets weekly paracentesis IR for paracentesis postpone until Sunday Patient used to be on furosemide and spironolactone as outpatient # COPD no in exacerbation continue her home inhalers DVT prophylaxis: Heparin subQ Given patient's need for further management of hepatic encephalopathy patient require overnight inpatient hospital stay for further management and monitoring Time Spent With Patient Time: Total time managing care of this patient today ____ minutes. Quality Stroke Does the patient have a stroke diagnosis?: No VTE Prior VTE?: No VTE Risk Level:: Medical - moderate - high VTE Device Contraindication: Treatment Not Indicated VTE Drug Contraindication: N/A - Med Ordered
[2022-10-01] MEDS: Albumin Human 25 % 100 ML IV ×2 (10:04→11:22)
[2022-10-01 15:00] VITALS: BP 141/71; PULSE 86; RESP 20; TEMP 36.8; O2SAT 91
[2022-10-01 19:53] VITALS: BP 146/80; PULSE 88; RESP 18; TEMP 37; O2SAT 93
[2022-10-01 20:01] VITALS: PULSE 88; RESP 18; O2SAT 94
[2022-10-01] MEDS: traZODone HCL 100 MG TABLET PO (20:34)
[2022-10-02] VITALS (7 sets, daily range): BP systolic 119–178; BP diastolic 57–83; PULSE 81–101; RESP 16–20; TEMP 36.1–36.9; O2SAT 92–95
[2022-10-02] MEDS: cefTRIAXone sodium 1 GM in 0.9 % Sodium Chloride 50 ML IV (06:19)
[2022-10-02 07:19] LABS: INTERNATIONAL NORM RATIO 1.6 (0.9-1.1); Prothrombin Time 18.7 SEC (10.0-13.1)
[2022-10-02 07:30] LABS: Anion Gap 12 (12-20); Blood Urea Nitrogen 26 mg/dL (9-16); Calcium 8.3 mg/dL (8.4-10.2); Carbon Dioxide 18 mmol/L (22-29); Chloride 110 mmol/L (96-108); Creatinine Clr Calc Pharmacy 31.9; Estimated Glomerular Filt Rate 36; Glucose Random 110 mg/dL (60-115); Potassium 3.6 mmol/L (3.3-5.1); Sodium 136 mmol/L (135-145)
[2022-10-02] MEDS: oxyBUTYnin chloride ER 5 MG TAB.ER.24 PO (07:37)
[2022-10-02] MEDS: Buprenorphine/Naloxone 8/2 mg FILM 1 FILM BUCCAL (07:37)
[2022-10-02] MEDS: Thiamine HCL 100 MG TABLET PO (07:37)
[2022-10-02] MEDS: Docusate Sodium 100 MG CAPSULE PO (07:37)
[2022-10-02] MEDS: amLODIPine Besylate 5 MG TABLET PO (07:37)
[2022-10-02] MEDS: Folic Acid 1 MG TABLET PO (07:37)
[2022-10-02] MEDS: rifAXIMin 550 MG TABLET PO ×2 (07:37→21:33)
[2022-10-02] MEDS: 0.9 % Sodium Chloride Flush 3 ML SYRINGE IVFLUSH ×3 (07:38→21:42)
[2022-10-02] MEDS: Lactulose 20 GM/30 ML SOLUTION PO ×2 (07:38→21:33)
[2022-10-02] MEDS: Sertraline HCL 50 MG TABLET 150 MG PO (07:38)
[2022-10-02] MEDS: Fluticasone Propionate 250 MCG BLST.W.DEV 1 PUFF INHALE ×2 (08:42→19:25)
[2022-10-02] MEDS: Lidocaine HCl 1 % MPF 5 ML VIAL SUBCUT (10:01)
[2022-10-02] MEDS: traMADoL HCL 50 MG TABLET 25 MG PO (11:28)
[2022-10-02] MEDS: Albumin Human 25 % 100 ML IV ×3 (11:28→21:34)
--- NOTE | 2022-10-02 12:43 | P.PNIM_ITS ---
Subjective Subjective Date of Service: 10/02/22 Interval History: Seen and evaluated this morning having bowel movement Paracentesis removed 6.8L this morning Cr up to 1.5 Left ring finger swollen with ring stuck Denies any pain, fever or chills Review of Systems Review of Systems: Yes all other systems are reviewed and are negative Physical Exam Vital Signs: Vital Signs: Last Vital Signs Temp 96.9 F 10/02/22 07:09 Pulse 98 10/02/22 08:44 Resp 16 10/02/22 08:44 BP 178/82 H 10/02/22 07:09 Pulse Ox 92 10/02/22 07:09 O2 Del Method Nasal Cannula 10/02/22 07:09 O2 Flow Rate 2 10/02/22 07:09 BMI result Body Mass Index 24.9 Const: Other: Constitutional : Awake, interactive, mildly anxious Neck : Normal inspection, Supple Cardiovascular : RRR, no JVP, no lower extremity edema Respiratory : good bilateral air entry, no crackles, wheezes or rhonchi Gastrointestinal: soft, lax, Normal bowel sounds, Non tender, less distended Skin : Warm, Dry, large bruise over Left hip, Left ring finger swollen with ring stuck Neurological : Alert & oriented x3, No focal deficit Objective Data Active Medications Amlodipine Besylate (Amlodipine Besylate 5 Mg Tablet) 5 mg PO DAILY [facility]; Protocol Last Admin: 10/02/22 07:37 Dose: 5 mg Documented By: HENRY Baclofen (Baclofen 10 Mg Tablet) 10 mg PO BEDTIME PRN PRN Reason: muscle spasm Buprenorphine/Naloxone (Buprenorphine/Naloxone 8/2 Mg Film) 1 film BUCCAL DAILY [facility] Last Admin: 10/02/22 07:37 Dose: 1 film Documented By: HENRY Docusate Sodium (Docusate Sodium 100 Mg Capsule) 100 mg PO DAILY [facility] Last Admin: 10/02/22 07:37 Dose: 100 mg Documented By: HENRY Fluticasone Propionate (Fluticasone Propionate 250 Mcg Blst.W.Dev) 1 puff INHAL E RBID [facility] Last Admin: 10/02/22 08:42 Dose: 1 puff Documented By: TYRA Folic Acid (Folic Acid 1 Mg Tablet) 1 mg PO DAILY [facility] Last Admin: 10/02/22 07:37 Dose: 1 mg Documented By: HENRY Heparin Sodium (Porcine) (Heparin Sodium,Porcine 5,000 Unit/Ml Vial) 5,000 unit SUBCUT Q12H [facility] Last Admin: 10/02/22 10:53 Dose: Not Given Documented By: HENRY Non-Admin Reason: per MD post Paracentesis Ceftriaxone Sodium 1 gm/ (Sodium Chloride) 50 mls @ 100 mls/hr IV Q24H [facility] Last Infusion: 10/02/22 07:46 Dose: 0 mls/hr Documented By: HENRY Albumin Human (Kedbumin 25 %) 100 mls @ 100 mls/hr IV Q6H [facility] Stop: 10/03/22 04:44 Last Admin: 10/02/22 11:28 Dose: 100 mls/hr Documented By: HENRY Lactulose (Lactulose 20 Gm/30 Ml Solution) 20 gm PO BID [facility] Last Admin: 10/02/22 07:38 Dose: 20 gm Documented By: HENRY Omeprazole (Omeprazole 20 Mg Capsule.Dr) 20 mg PO BID@0630,1630 [facility] Ondansetron HCl (Ondansetron Hcl 4 Mg/2 Ml Vial) 4 mg IVPUSH Q8H PRN PRN Reason: Nausea and Vomiting Oxybutynin Chloride (Oxybutynin Chloride Er 5 Mg Tab.Er.24) 5 mg PO DAILY [facility] Last Admin: 10/02/22 07:37 Dose: 5 mg Documented By: HENRY Pharmacy Consult (Consult Rx Perform Med Rec) 1 each MISCELLANE ONCE PRN PRN Reason: Consult order Rifaximin (Rifaximin 550 Mg Tablet) 550 mg PO BID [facility] Last Admin: 10/02/22 07:37 Dose: 550 mg Documented By: HENRY Sertraline HCl (Sertraline Hcl 50 Mg Tablet) 150 mg PO DAILY [facility] Last Admin: 10/02/22 07:38 Dose: 150 mg Documented By: HENRY Sodium Chloride (0.9 % Sodium Chloride Flush 3 Ml Syringe) 3 ml IVFLUSH QSHIFT [facility] Last Admin: 10/02/22 07:38 Dose: 3 ml Documented By: HENRY Thiamine HCl (Thiamine Hcl 100 Mg Tablet) 100 mg PO DAILY [facility] Last Admin: 10/02/22 07:37 Dose: 100 mg Documented By: HENRY Trazodone HCl (Trazodone Hcl 100 Mg Tablet) 100 mg PO BEDTIME [facility] Last Admin: 10/01/22 20:34 Dose: 100 mg Documented By: KONG Labs 10/01/22 05:19 10/02/22 05:50 Labs: Laboratory Results - last 24 hr 10/02/22 10/02/22 05:50 05:50 PT 18.7 H INR 1.6 H Anion Gap 12 Estim Creat Clear Calc 31.9 Estimated GFR 36 Random Glucose 110 Calcium 8.3 L Assessment and Plan (1) Acute kidney injury: Status: Acute (2) Encephalopathy, hepatic: Status: Acute (3) Cirrhosis of liver with ascites: Status: Acute Plan 56-year-old female with past medical history of hepatic liver cirrhosis with weekly paracentesis comes into the hospital with feeling somnolent # Hepatic encephalopathy improving secondary to hyperammonemia Head CT negative lactulose with goal of 3-4 BMs daily monitor mentation # left wrist fracture and multiple fracture of ribs secondary to mechanical falls Left ring finger swollen with ring stuck , to cut the ring p.r.n. pain control # VLADIMIR Cr up to 1.5 check urine studies Holding Lasix and Spironolactone monitor I\O Give Albumin follow BMP # Large asictes 2/2 cirrhosis of the liver no abdominal pain Gets weekly paracentesis Removed 6.8L Start Albumin for 4 doses furosemide and spironolactone on hold for Vladimir # COPD no in exacerbation continue her home inhalers DVT prophylaxis: Heparin subQ Given patient's need for further management of hepatic encephalopathy, ascites, VLADIMIR patient require overnight inpatient hospital stay for further management and monitoring Time Spent With Patient Time: Total time managing care of this patient today ____ minutes. Quality Stroke Does the patient have a stroke diagnosis?: No VTE Prior VTE?: No VTE Risk Level:: Medical - moderate - high VTE Device Contraindication: Treatment Not Indicated VTE Drug Contraindication: N/A - Med Ordered
[2022-10-02 14:36] LABS: Creatinine Urine 94.95 mg/dL; Sodium Urine Random < 20.0 mmol/L
--- NOTE | 2022-10-02 15:47 | MHC.CM.PN ---
Addendum entered by Aurelia Kirk 10/07/22 11:44: HCP ON FILE Original Note: CM MET WITH PT WHO WAS ABLE TO PARTICIPATE IN ASSESSMENT. SHE LIVES IN A THIRD FLOOR APT WITH HER SON AND 2 DOGS. SHE USES A CANE TO AMBULATE BUT STATES SHE FALLS FREQUENTLY AND WOULD LIKE A WALKER. SHE STATES SHE IS NOT INTERESTED IN STR ,THOUGH P.T. REC. STR , BUT WOULD ACCEPT A VNA. + COVID VX X3. UNSURE IF SHE HAS A HCP BUT WILLING TO THINK ABOUT COMPLETING ONE. PCP DR. FOWLER AT [facility]. DP: HOME WITH VNA VS STR. PT WILL NEED A RIDE HOME IF THAT IS THE PLAN. CM WILL CONTINUE TO FOLLOW FOR DC NEEDS/PLAN
[2022-10-02] MEDS: Omeprazole 20 MG CAPSULE.DR PO (16:08)
[2022-10-02] MEDS: traZODone HCL 100 MG TABLET PO (21:33)
[2022-10-02] MEDS: Heparin Sodium,Porcine 5,000 UNIT/ML VIAL 5000 UNIT SUBCUT (23:38)
[2022-10-03] MEDS: Albumin Human 25 % 100 ML IV ×4 (03:19→23:49)
[2022-10-03 04:00] VITALS: BP 136/63; PULSE 77; RESP 16; TEMP 37.3; O2SAT 92
[2022-10-03] MEDS: Omeprazole 20 MG CAPSULE.DR PO ×2 (05:44→17:16)
[2022-10-03 06:30] LABS: Anion Gap 12 (12-20); Blood Urea Nitrogen 25 mg/dL (9-16); Calcium 8.1 mg/dL (8.4-10.2); Carbon Dioxide 19 mmol/L (22-29); Chloride 108 mmol/L (96-108); Creatinine Clr Calc Pharmacy 29.5; Estimated Glomerular Filt Rate 33; Glucose Random 103 mg/dL (60-115); Potassium 3.6 mmol/L (3.3-5.1); Sodium 135 mmol/L (135-145)
[2022-10-03 07:25] VITALS: BP 117/56; PULSE 86; RESP 18; TEMP 37.1; O2SAT 91
[2022-10-03] MEDS: 0.9 % Sodium Chloride Flush 3 ML SYRINGE IVFLUSH ×3 (07:43→23:48)
[2022-10-03] MEDS: oxyBUTYnin chloride ER 5 MG TAB.ER.24 PO (07:44)
[2022-10-03] MEDS: Thiamine HCL 100 MG TABLET PO (07:44)
[2022-10-03] MEDS: Docusate Sodium 100 MG CAPSULE PO (07:44)
[2022-10-03] MEDS: Lactulose 20 GM/30 ML SOLUTION PO ×2 (07:44→21:47)
[2022-10-03] MEDS: rifAXIMin 550 MG TABLET PO ×2 (07:44→21:47)
[2022-10-03] MEDS: Folic Acid 1 MG TABLET PO (07:45)
[2022-10-03] MEDS: Sertraline HCL 50 MG TABLET 150 MG PO (07:45)
[2022-10-03] MEDS: Buprenorphine/Naloxone 8/2 mg FILM 1 FILM BUCCAL (07:45)
[2022-10-03] MEDS: amLODIPine Besylate 5 MG TABLET PO (07:45)
[2022-10-03] MEDS: Fluticasone Propionate 250 MCG BLST.W.DEV 1 PUFF INHALE ×2 (08:04→19:37)
[2022-10-03 08:21] VITALS: PULSE 86; RESP 18; O2SAT 96
--- NOTE | 2022-10-03 10:24 | P.PNIM_ITS ---
Subjective Subjective Date of Service: 10/03/22 Interval History: diarrhea, stool incontinence Physical Exam Vital Signs: Vital Signs: Last Vital Signs Temp 98.8 F 10/03/22 07:25 Pulse 86 10/03/22 08:21 Resp 18 10/03/22 08:21 BP 117/56 L 10/03/22 07:25 Pulse Ox 91 L 10/03/22 07:25 O2 Del Method Nasal Cannula 10/03/22 07:25 O2 Flow Rate 2 10/03/22 07:25 BMI result Body Mass Index 24.9 Const: Other: Constitutional : Awake, interactive, mildly anxious Neck : Normal inspection, Supple Cardiovascular : RRR, no JVP, no lower extremity edema Respiratory : good bilateral air entry, no crackles, wheezes or rhonchi Gastrointestinal: soft, lax, Normal bowel sounds, Non tender, less distended Skin : Warm, Dry, large bruise over Left hip, Left ring finger swollen with ring stuck Neurological : Alert & oriented x3, No focal deficit Objective Data Active Medications Albuterol/Ipratropium (Albuterol/Iprat 2.5/0.5mg 3 Ml Ampul.Neb) 3 ml INHALE Q6H PRN PRN Reason: Dyspnea Amlodipine Besylate (Amlodipine Besylate 5 Mg Tablet) 5 mg PO DAILY [facility]; Protocol Last Admin: 10/03/22 07:45 Dose: 5 mg Documented By: LARISSA Baclofen (Baclofen 10 Mg Tablet) 10 mg PO BEDTIME PRN PRN Reason: muscle spasm Buprenorphine/Naloxone (Buprenorphine/Naloxone 8/2 Mg Film) 1 film BUCCAL DAILY [facility] Last Admin: 10/03/22 07:45 Dose: 1 film Documented By: LARISSA Docusate Sodium (Docusate Sodium 100 Mg Capsule) 100 mg PO DAILY [facility] Last Admin: 10/03/22 07:44 Dose: 100 mg Documented By: LARISSA Fluticasone Propionate (Fluticasone Propionate 250 Mcg Blst.W.Dev) 1 puff INHALE RBID [facility] Last Admin: 10/03/22 08:04 Dose: 1 puff Documented By: JOE Folic Acid (Folic Acid 1 Mg Tablet) 1 mg PO DAILY [facility] Last Admin: 10/03/22 07:45 Dose: 1 mg Documented By: LARISSA Heparin Sodium (Porcine) (Heparin Sodium,Porcine 5,000 Unit/Ml Vial) 5,000 unit SUBCUT Q12H [facility] Last Admin: 10/02/22 23:38 Dose: 5,000 unit Documented By: ALESHA Lactulose (Lactulose 20 Gm/30 Ml Solution) 20 gm PO BID [facility] Last Admin: 10/03/22 07:44 Dose: 20 gm Documented By: LARISSA Omeprazole (Omeprazole 20 Mg Capsule.) 20 mg PO BID@0630,1630 [facility] Last Admin: 10/03/22 05:44 Dose: 20 mg Documented By: ALESHA Ondansetron HCl (Ondansetron Hcl 4 Mg/2 Ml Vial) 4 mg IVPUSH Q8H PRN PRN Reason: Nausea and Vomiting Oxybutynin Chloride (Oxybutynin Chloride Er 5 Mg Tab.Er.24) 5 mg PO DAILY [facility] Last Admin: 10/03/22 07:44 Dose: 5 mg Documented By: LARISSA Pharmacy Consult (Consult Rx Perform Med Rec) 1 each MISCELLANE ONCE PRN PRN Reason: Consult order Rifaximin (Rifaximin 550 Mg Tablet) 550 mg PO BID [facility] Last Admin: 10/03/22 07:44 Dose: 550 mg Documented By: LARISSA Sertraline HCl (Sertraline Hcl 50 Mg Tablet) 150 mg PO DAILY [facility] Last Admin: 10/03/22 07:45 Dose: 150 mg Documented By: LARISSA Sodium Chloride (0.9 % Sodium Chloride Flush 3 Ml Syringe) 3 ml IVFLUSH QSHIFT [facility] Last Admin: 10/03/22 07:43 Dose: 3 ml Documented By: LARISSA Thiamine HCl (Thiamine Hcl 100 Mg Tablet) 100 mg PO DAILY [facility] Last Admin: 10/03/22 07:44 Dose: 100 mg Documented By: LARISSA Trazodone HCl (Trazodone Hcl 100 Mg Tablet) 100 mg PO BEDTIME [facility] Last Admin: 10/02/22 21:33 Dose: 100 mg Documented By: ALESHA Labs 10/01/22 05:19 10/03/22 05:58 Labs: Laboratory Results - last 24 hr 10/02/22 10/03/22 12:30 05:58 Anion Gap 12 Estim Creat Clear Calc 29.5 Estimated GFR 33 Random Glucose 103 Calcium 8.1 L Ur Random Sodium < 20.0 Urine Creatinine 94.95 Assessment and Plan (1) Acute kidney injury: Status: Acute (2) Encephalopathy, hepatic: Status: Acute (3) Cirrhosis of liver with ascites: Status: Acute Plan 56F PMH HCV/ETOH cirrhosis, mood disorder, copd, opiate dependence, htn, presented with ams acute metabolic encephalopathy due to hepatic encephalopathy in hcv/etoh cirrhosis improved with lactulose, having 3-4bm/daily rifaximin symptomatic ascites s/p 6.8L paracentesis 10/02/22 with albumin given no labs taken VLADIMIR holding diuretics monitor nephro eval htn amlodipine mood disorder soloft left wrist fracture and multiple fracture of ribs secondary to mechanical falls Left ring finger swollen with ring stuck , to cut the ring p.r.n. pain control COPD no in exacerbation duonebs prn opiate dependence suboxone DVT prophylaxis: Heparin subQ reason for continued hospitalization:worsening renal function Time Spent With Patient Time: Total time managing care of this patient today ____ minutes. Quality Stroke Does the patient have a stroke diagnosis?: No VTE Prior VTE?: No VTE Risk Level:: Medical - moderate - high VTE Device Contraindication: Treatment Not Indicated VTE Drug Contraindication: N/A - Med Ordered
--- NOTE | 2022-10-03 11:29 | PM.CNNEP ---
History of Present Illness Reason for Consult Consult date: 10/03/22 Chief Complaint Chief complaint: hepatic encephalopathy History of Present Illness Narrative: 56-year-old female with history of liver cirrhosis?admitted with altered mental status now with worsening kidney function. She has a history of weekly paracentesis and underwent yesterday a paracentesis with 6.8 L fluid drained. She came to the hospital feeling? somnolent. She denies chest pain, shortness of breath, nausea, vomiting or diarrhea. Review of Systems Review of Systems 10 points ROS negative except for pertinent in HPI PMFSH Past Medical History Medical History Acute respiratory failure with hypoxia Alcohol abuse Alcohol abuse with withdrawal Alcoholic cirrhosis of liver with ascites Anxiety Coagulopathy COPD (chronic obstructive pulmonary disease) COPD (chronic obstructive pulmonary disease) 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) Elevated rheumatoid factor Hand paresthesia Hepatitis C Hepatomegaly History of abdominal paracentesis Hyperammonemia Microhematuria Pancytopenia Panic attacks Polysubstance abuse Thrombocytopenia Transaminitis Family History Family History Father Family history of high blood pressure Mother Alive and well Surgical History Surgical History History of delivery History of esophagogastroduodenoscopy (EGD) (~02/2017) Social History Social History Household Members: Children Housing: Apartment Do you presently have visiting nurse or other home services: No Alcohol intake: unknown Patient Tobacco Use Status: Current everyday Tobacco user Tobacco use type: Cigarette Cigarettes Per Day: 3 Second Hand Smoke Exposure: No Advance Directives Date on File: 08/16/20 service: No Current occupational status: unemployed Meds Allergies Allergy/AdvReac Type Severity Reaction Status Date / Time No Known Allergies Allergy Verified 09/28/22 20:17 Active Medications: Current Medications Albuterol/Ipratropium (Albuterol/Iprat 2.5/0.5mg 3 Ml Ampul.Neb) 3 ml INHALE Q6H PRN PRN Reason: Dyspnea Amlodipine Besylate (Amlodipine Besylate 5 Mg Tablet) 5 mg PO DAILY [facility]; Protocol Last Admin: 10/03/22 07:45 Dose: 5 mg Baclofen (Baclofen 10 Mg Tablet) 10 mg PO BEDTIME PRN PRN Reason: muscle spasm Buprenorphine/Naloxone (Buprenorphine/Naloxone 8/2 Mg Film) 1 film BUCCAL DAILY [facility] Last Admin: 10/03/22 07:45 Dose: 1 film Docusate Sodium (Docusate Sodium 100 Mg Capsule) 100 mg PO DAILY [facility] Last Admin: 10/03/22 07:44 Dose: 100 mg Fluticasone Propionate (Fluticasone Propionate 250 Mcg Blst.W.Dev) 1 puff INHALE RBID [facility] Last Admin: 10/03/22 08:04 Dose: 1 puff Folic Acid (Folic Acid 1 Mg Tablet) 1 mg PO DAILY [facility] Last Admin: 10/03/22 07:45 Dose: 1 mg Heparin Sodium (Porcine) (Heparin Sodium,Porcine 5,000 Unit/Ml Vial) 5,000 unit SUBCUT Q12H [facility] Last Admin: 10/02/22 23:38 Dose: 5,000 unit Lactulose (Lactulose 20 Gm/30 Ml Solution) 20 gm PO BID [facility] Last Admin: 10/03/22 07:44 Dose: 20 gm Omeprazole (Omeprazole 20 Mg Capsule.Dr) 20 mg PO BID@0630,1630 [facility] Last Admin: 10/03/22 05:44 Dose: 20 mg Ondansetron HCl (Ondansetron Hcl 4 Mg/2 Ml Vial) 4 mg IVPUSH Q8H PRN PRN Reason: Nausea and Vomiting Oxybutynin Chloride (Oxybutynin Chloride Er 5 Mg Tab.Er.24) 5 mg PO DAILY [facility] Last Admin: 10/03/22 07:44 Dose: 5 mg Pharmacy Consult (Consult Rx Perform Med Rec) 1 each MISCELLANE ONCE PRN PRN Reason: Consult order Rifaximin (Rifaximin 550 Mg Tablet) 550 mg PO BID [facility] Last Admin: 10/03/22 07:44 Dose: 550 mg Sertraline HCl (Sertraline Hcl 50 Mg Tablet) 150 mg PO DAILY [facility] Last Admin: 10/03/22 07:45 Dose: 150 mg Sodium Chloride (0.9 % Sodium Chloride Flush 3 Ml Syringe) 3 ml IVFLUSH QSHIFT [facility] Last Admin: 10/03/22 07:43 Dose: 3 ml Thiamine HCl (Thiamine Hcl 100 Mg Tablet) 100 mg PO DAILY [facility] Last Admin: 10/03/22 07:44 Dose: 100 mg Trazodone HCl (Trazodone Hcl 100 Mg Tablet) 100 mg PO BEDTIME [facility] Last Admin: 10/02/22 21:33 Dose: 100 mg Home Medications Medication Instructions Recorded Confirmed Last Taken Type buprenorphine 8 mg-naloxone 2 mg 1 film buccal DAILY 02/24/20 09/29/22 08/24/22 History sublingual film (Suboxone) multivitamin 1 tab PO DAILY 02/24/20 09/29/22 08/24/22 History sertraline 50 mg tablet 150 mg PO DAILY@1200 02/24/20 09/29/22 08/24/22 History trazodone 50 mg tablet 100 mg PO BEDTIME 02/24/20 09/29/22 08/24/22 History docusate sodium 100 mg capsule 100 mg PO DAILY 07/20/20 09/29/22 08/24/22 History (DOK) amlodipine 5 mg tablet 1 tab PO QAM 05/15/22 09/29/22 08/24/22 History fluticasone propionate 220 1 puff inhalation BID 05/15/22 09/29/22 08/24/22 History mcg/actuation HFA aerosol inhaler (Flovent HFA) fluticasone propionate 50 2 spray intranasal DAILY PRN 05/15/22 09/29/22 08/24/22 History mcg/actuation nasal Allergic Symptoms spray,suspension folic acid 1 mg tablet 1 tab PO QAM 05/15/22 09/29/22 08/24/22 History oxybutynin chloride 5 mg 1 tab PO QAM 05/15/22 09/29/22 08/24/22 History tablet,extended release 24 hr thiamine HCl (vitamin B1) 100 mg 1 tab PO QAM 05/15/22 09/29/22 08/24/22 History tablet baclofen 10 mg tablet 10 mg PO BEDTIME PRN muscle spasm 09/29/22 09/29/22 Unknown History ipratropium 20 mcg-albuterol 100 1 puff inhalation QID PRN Wheezing 09/29/22 09/29/22 Unknown History mcg/actuation mist for inhalation (Combivent Respimat) furosemide 40 mg tablet 40 mg PO BID@0900,1200 10/02/22 10/02/22 Unknown History omeprazole 20 mg capsule,delayed 20 mg PO BID 10/02/22 10/02/22 Unknown History release spironolactone 25 mg tablet 100 mg PO DAILY 10/02/22 10/02/22 Unknown History Physical Exam Vital Signs: Last Vital Signs Temp 98.8 F 10/03/22 07:25 Pulse 86 10/03/22 08:21 Resp 18 10/03/22 08:21 BP 117/56 L 10/03/22 07:25 Pulse Ox 91 L 10/03/22 07:25 O2 Del Method Nasal Cannula 10/03/22 07:25 O2 Flow Rate 2 10/03/22 07:25 BMI result Body Mass Index 24.9 Const General: no acute distress HEENT Head: Yes normocephalic and Yes atraumatic Neck Neck: Yes supple Resp Auscultation: diminished lung sounds Cardio Heart sounds: S1 normal heart sound present and S2 normal heart sound present GI Palpation (GI): Ascites present Percussion: Yes Fluid wave present Extrem General: No edema Results Lab Results 10/01/22 05:19 10/03/22 05:58 Lab results: Chemistry 10/01/22 10/02/22 10/03/22 05:18 05:50 05:58 Sodium 140 136 135 Potassium 3.7 3.6 3.6 Carbon Dioxide 18 L 18 L 19 L BUN 26 H 26 H 25 H Creatinine 1.55 H 1.52 H 1.64 H Calcium 7.9 L D 8.3 L 8.1 L Hematology 10/01/22 05:19 WBC 8.0 Hgb 7.5 L Plt Count 98 L Urine Studies 10/02/22 12:30 Urine Creatinine 94.95 Assessment and Plan (1) Acute kidney injury: Status: Acute (2) Cirrhosis of liver with ascites: Status: Acute Plan VLADIMIR due to pre renal state in the setting of liver cirrhosis Chloe < 20 not c/w HRS-VLADIMIR probably underlying HRS-CKD h/o hepatitis C urine suggests microscopic hematuria and proteinuria REC complement level UPCR c/w albumin infusion 25 g tid follow kidney function and electrolytes Time Spent With Patient Time: Total time managing care of this patient today ____ minutes. Procedures Date of Service Date of Service: 10/03/22
[2022-10-03] MEDS: Heparin Sodium,Porcine 5,000 UNIT/ML VIAL 5000 UNIT SUBCUT ×2 (12:40→23:49)
[2022-10-03 16:00] VITALS: BP 129/60; PULSE 89; RESP 20; TEMP 37.2; O2SAT 92
[2022-10-03 16:15] LABS: Creatinine Urine 99.23 mg/dL
[2022-10-03 16:17] LABS: Total Protein Urine Random 153 mg/dL (<12)
[2022-10-03 19:39] VITALS: PULSE 88; RESP 20; O2SAT 92
[2022-10-03 20:00] VITALS: BP 135/66; PULSE 84; RESP 18; TEMP 37.1; O2SAT 92
[2022-10-03] MEDS: traZODone HCL 100 MG TABLET PO (21:47)
[2022-10-04] VITALS (9 sets, daily range): BP systolic 113–148; BP diastolic 54–83; PULSE 74–90; RESP 16–20; TEMP 36.5–37.4; O2SAT 90–94
[2022-10-04] MEDS: Albumin Human 25 % 100 ML IV (05:59)
[2022-10-04] MEDS: Omeprazole 20 MG CAPSULE.DR PO ×2 (06:06→16:57)
[2022-10-04 06:07] LABS: Hematocrit 21.4 % (37.0-47.0); Mean Corpuscular HGB Conc 30.4 g/dl (31.0-35.0); Mean Corpuscular Hemoglobin 23.6 pg (27.0-33.0); Mean Corpuscular Volume 77.8 fL (80.0-98.0); Mean Platelet Volume 9.9 fL (9.4-12.3); Red Blood Count 2.75 X10*6/uL (4.20-5.50); Red Cell Distribution Width 20.7 % (11.0-16.0); White Blood Count 10.2 X10*3/uL (4.8-10.8)
[2022-10-04 06:13] LABS: Hemoglobin 6.5 g/dl (12.0-16.0); Platelet Count 67 X10*3/uL (160-400)
[2022-10-04 06:20] LABS: Anion Gap 12 (12-20); Blood Urea Nitrogen 27 mg/dL (9-16); Calcium 8.4 mg/dL (8.4-10.2); Carbon Dioxide 19 mmol/L (22-29); Chloride 106 mmol/L (96-108); Estimated Glomerular Filt Rate 31; Glucose Fasting 87 mg/dL (60-99); Potassium 3.6 mmol/L (3.3-5.1); Sodium 133 mmol/L (135-145)
--- NOTE | 2022-10-04 06:30 | PC.NURSE ---
RECEIVED TEXT FROM Lydia AT 0615 FOR LAB VALUE OF HGB OF 6.5. ABNORMAL VALUE ALERT SENT TO HOSPITALIST ON DUTY, NOTE READ AND RESPONDED MD WANG ON IS DR. GALLAGHER. AWAITING IF ANY NEW ORDERS. AND WILL REPORT TO RACHEL STRATTON.
[2022-10-04] MEDS: Fluticasone Propionate 250 MCG BLST.W.DEV 1 PUFF INHALE ×2 (08:01→19:54)
--- NOTE | 2022-10-04 08:12 | HO.PM.IMPN ---
Subjective Subjective Date of Service: 10/04/22 Interval History: diarrhea Physical Exam Vital Signs: Vital Signs: Last Vital Signs Temp 98.1 F 10/04/22 07:37 Pulse 80 10/04/22 08:01 Resp 18 10/04/22 08:01 BP 118/58 L 10/04/22 07:37 Pulse Ox 92 10/04/22 07:37 O2 Del Method Nasal Cannula 10/04/22 07:37 O2 Flow Rate 2 10/04/22 07:37 BMI result Body Mass Index 24.9 Const: General: no acute distress HEENT: Head: Yes normocephalic and Yes atraumatic Neck: Neck: Yes supple Resp: Auscultation: diminished lung sounds Cardio: Heart sounds: S1 normal heart sound present and S2 normal heart sound present GI: Palpation (GI): Ascites present Percussion: Yes Fluid wave present Extrem: General: No edema Objective Data Active Medications Albuterol/Ipratropium (Albuterol/Iprat 2.5/0.5mg 3 Ml Ampul.Neb) 3 ml INHALE Q6H PRN PRN Reason: Dyspnea Amlodipine Besylate (Amlodipine Besylate 5 Mg Tablet) 5 mg PO DAILY [facility]; Protocol Last Admin: 10/03/22 07:45 Dose: 5 mg Documented By: LARISSA Baclofen (Baclofen 10 Mg Tablet) 10 mg PO BEDTIME PRN PRN Reason: muscle spasm Buprenorphine/Naloxone (Buprenorphine/Naloxone 8/2 Mg Film) 1 film BUCCAL DAILY [facility] Last Admin: 10/03/22 07:45 Dose: 1 film Documented By: LARISSA Docusate Sodium (Docusate Sodium 100 Mg Capsule) 100 mg PO DAILY [facility] Last Admin: 10/03/22 07:44 Dose: 100 mg Documented By: LARISSA Fluticasone Propionate (Fluticasone Propionate 250 Mcg Blst.W.Dev) 1 puff INHALE RBID [facility] Last Admin: 10/04/22 08:01 Dose: 1 puff Documented By: JAYMIE Folic Acid (Folic Acid 1 Mg Tablet) 1 mg PO DAILY [facility] Last Admin: 10/03/22 07:45 Dose: 1 mg Documented By: LARISSA Heparin Sodium (Porcine) (Heparin Sodium,Porcine 5,000 Unit/Ml Vial) 5,000 unit SUBCUT Q12H [facility] Last Admin: 10/03/22 23:49 Dose: 5,000 unit Documented By: MILA Lactulose (Lactulose 20 Gm/30 Ml Solution) 20 gm PO BID [facility] Last Admin: 10/03/22 21:47 Dose: 20 gm Documented By: WM Omeprazole (Omeprazole 20 Mg Capsule.Dr) 20 mg PO BID@0630,1630 [facility] Last Admin: 10/04/22 06:06 Dose: 20 mg Documented By: MILA Ondansetron HCl (Ondansetron Hcl 4 Mg/2 Ml Vial) 4 mg IVPUSH Q8H PRN PRN Reason: Nausea and Vomiting Oxybutynin Chloride (Oxybutynin Chloride Er 5 Mg Tab.Er.24) 5 mg PO DAILY [facility] Last Admin: 10/03/22 07:44 Dose: 5 mg Documented By: LARISSA Pharmacy Consult (Consult Rx Perform Med Rec) 1 each MISCELLANE ONCE PRN PRN Reason: Consult order Rifaximin (Rifaximin 550 Mg Tablet) 550 mg PO BID [facility] Last Admin: 10/03/22 21:47 Dose: 550 mg Documented By: WM Sertraline HCl (Sertraline Hcl 50 Mg Tablet) 150 mg PO DAILY [facility] Last Admin: 10/03/22 07:45 Dose: 150 mg Documented By: LARISSA Sodium Chloride (0.9 % Sodium Chloride Flush 3 Ml Syringe) 3 ml IVFLUSH QSHIFT [facility] Last Admin: 10/03/22 23:48 Dose: 3 ml Documented By: MILA Thiamine HCl (Thiamine Hcl 100 Mg Tablet) 100 mg PO DAILY [facility] Last Admin: 10/03/22 07:44 Dose: 100 mg Documented By: LARISSA Trazodone HCl (Trazodone Hcl 100 Mg Tablet) 100 mg PO BEDTIME [facility] Last Admin: 10/03/22 21:47 Dose: 100 mg Documented By: WM Labs 10/04/22 05:52 10/04/22 05:52 Labs: Laboratory Results - last 24 hr 10/03/22 10/03/22 10/04/22 15:50 15:50 05:52 MCV 77.8 L MCH 23.6 L MCHC 30.4 L RDW 20.7 H Plt Count 67 L D MPV 9.9 Absolute Nucleated RBC 0.000 Nucleated RBC % (auto) 0.0 Anion Gap Estim Creat Clear Calc Estimated GFR Fasting Glucose Calcium U Random Total Protein 153 H Urine Creatinine 99.23 10/04/22 05:52 MCV MCH MCHC RDW Plt Count MPV Absolute Nucleated RBC Nucleated RBC % (auto) Anion Gap 12 Estim Creat Clear Calc 28.0 Estimated GFR 31 Fasting Glucose 87 Calcium 8.4 U Random Total Protein Urine Creatinine Assessment and Plan (1) Acute kidney injury: Status: Acute (2) Encephalopathy, hepatic: Status: Acute (3) Cirrhosis of liver with ascites: Status: Acute Plan 56F PMH HCV/ETOH cirrhosis, mood disorder, copd, opiate dependence, htn, presented with ams acute metabolic encephalopathy due to hepatic encephalopathy in hcv/etoh cirrhosis improved with lactulose, having 3-4bm/daily rifaximin symptomatic ascites s/p 6.8L paracentesis 10/02/22 with albumin given no labs taken acute on chronic anemia no obvious blood loss transfuse 1 unit prbc, monitor VLADIMIR ?HRS holding diuretics, given albumin monitor nephro following htn will hold amlodipine for soft bp mood disorder zoloft left wrist fracture and multiple fracture of ribs secondary to mechanical falls Left ring finger swollen with ring stuck , to cut the ring p.r.n. pain control COPD no in exacerbation duonebs prn opiate dependence suboxone DVT prophylaxis: Heparin subQ reason for continued hospitalization:worsening renal function, anemia needing transfusion Time Spent With Patient Time: Total time managing care of this patient today ____ minutes. Quality Stroke Does the patient have a stroke diagnosis?: No VTE Prior VTE?: No VTE Risk Level:: Medical - moderate - high VTE Device Contraindication: Treatment Not Indicated VTE Drug Contraindication: N/A - Med Ordered
[2022-10-04] MEDS: Lactulose 20 GM/30 ML SOLUTION PO ×2 (08:32→19:48)
[2022-10-04] MEDS: Sertraline HCL 50 MG TABLET 150 MG PO (08:32)
[2022-10-04] MEDS: 0.9 % Sodium Chloride Flush 3 ML SYRINGE IVFLUSH ×3 (08:32→19:48)
[2022-10-04] MEDS: oxyBUTYnin chloride ER 5 MG TAB.ER.24 PO (08:33)
[2022-10-04] MEDS: Thiamine HCL 100 MG TABLET PO (08:33)
[2022-10-04] MEDS: Folic Acid 1 MG TABLET PO (08:33)
[2022-10-04] MEDS: rifAXIMin 550 MG TABLET PO ×2 (08:33→19:48)
[2022-10-04] MEDS: Docusate Sodium 100 MG CAPSULE PO (08:33)
[2022-10-04] MEDS: Buprenorphine/Naloxone 8/2 mg FILM 1 FILM BUCCAL (08:37)
[2022-10-04] MEDS: Heparin Sodium,Porcine 5,000 UNIT/ML VIAL 5000 UNIT SUBCUT (11:32)
--- NOTE | 2022-10-04 12:39 | PM.PNNEP ---
Subjective Subjective Date of Service: 10/04/22 Interval history: seen and examined c/o diarrhea Physical Exam Vital Signs: Vital Signs: Last Vital Signs Temp 98.4 F 10/04/22 10:48 Pulse 79 10/04/22 10:48 Resp 18 10/04/22 10:48 BP 148/83 H 10/04/22 10:48 Pulse Ox 92 10/04/22 07:37 O2 Del Method Nasal Cannula 10/04/22 07:37 O2 Flow Rate 2 10/04/22 07:37 BMI result Body Mass Index 24.9 Const: General: no acute distress HEENT: Head: Yes normocephalic and Yes atraumatic Neck: Neck: Yes supple Resp: Auscultation: diminished lung sounds Cardio: Heart sounds: S1 normal heart sound present and S2 normal heart sound present GI: Palpation (GI): Ascites present Percussion: Yes Fluid wave present Extrem: General: No edema Objective Data Labs 10/04/22 05:52 10/04/22 05:52 Labs: Laboratory Results - last 24 hr 10/03/22 10/03/22 10/04/22 15:50 15:50 05:52 WBC 10.2 RBC 2.75 L Hgb 6.5 L* Hct 21.4 L MCV 77.8 L MCH 23.6 L MCHC 30.4 L RDW 20.7 H Plt Count 67 L D MPV 9.9 Absolute Nucleated RBC 0.000 Nucleated RBC % (auto) 0.0 Smear Path Review Sodium Potassium Chloride Carbon Dioxide Anion Gap BUN Creatinine Estim Creat Clear Calc Estimated GFR Fasting Glucose Calcium U Random Total Protein 153 H Urine Creatinine 99.23 Blood Type Antibody Screen Crossmatch 10/04/22 10/04/22 05:52 07:55 WBC RBC Hgb Hct MCV MCH MCHC RDW Plt Count MPV Absolute Nucleated RBC Nucleated RBC % (auto) Smear Path Review Sodium 133 L Potassium 3.6 Chloride 106 Carbon Dioxide 19 L Anion Gap 12 BUN 27 H Creatinine 1.73 H Estim Creat Clear Calc 28.0 Estimated GFR 31 Fasting Glucose 87 Calcium 8.4 U Random Total Protein Urine Creatinine Blood Type O Positive Antibody Screen NEGATIVE Crossmatch See Detail Procedures Date of Service Date of Service: 10/04/22 Assessment & Plan Assessment and plan (1) Acute kidney injury: Status: Acute (2) Cirrhosis of liver with ascites: Status: Acute Plan VLADIMIR due to pre renal state in the setting of liver cirrhosis Chloe < 20 not c/w HRS-VLADIMIR probably underlying HRS-CKD h/o hepatitis C urine suggests microscopic hematuria proteinuria ~ 1.5 g complement level c3 and c4 pending REC c/w albumin infusion 25 g tid blood transfusion for Hb < 7 follow kidney function and electrolytes Time Spent With Patient Time: Total time managing care of this patient today ____ minutes. Progress Note: Quality Stroke Does the patient have a stroke diagnosis?: No
--- NOTE | 2022-10-04 16:11 | MHC.CM.PN ---
EMR REVIEWED AND PER MD ROUNDS, PT IS NOT MEDICALLY CLEARED FOR DC (IV ALBUMIN TID, LAB/ELECTROLYTE MONITORING) CM WILL CONTINUE TO FOLLOW FOR ANY CHANGE IN DC PLAM/NEEDS. [facility] UPDATED.
[2022-10-04] MEDS: traZODone HCL 100 MG TABLET PO (19:48)
[2022-10-05] VITALS (8 sets, daily range): BP systolic 132–166; BP diastolic 63–74; PULSE 77–92; RESP 16–20; TEMP 36.9–37.7; O2SAT 90–95
[2022-10-05] MEDS: Heparin Sodium,Porcine 5,000 UNIT/ML VIAL 5000 UNIT SUBCUT ×3 (00:22→23:25)
[2022-10-05] MEDS: Omeprazole 20 MG CAPSULE.DR PO ×2 (05:39→16:20)
[2022-10-05 05:52] LABS: Hematocrit 24.9 % (37.0-47.0); Hemoglobin 7.6 g/dl (12.0-16.0); Mean Corpuscular HGB Conc 30.5 g/dl (31.0-35.0); Mean Corpuscular Hemoglobin 24.3 pg (27.0-33.0); Mean Corpuscular Volume 79.6 fL (80.0-98.0); Mean Platelet Volume 10.7 fL (9.4-12.3); Red Blood Count 3.13 X10*6/uL (4.20-5.50); White Blood Count 11.6 X10*3/uL (4.8-10.8)
[2022-10-05 05:57] LABS: Platelet Count 74 X10*3/uL (160-400)
[2022-10-05 06:15] LABS: Anion Gap 13 (12-20); Blood Urea Nitrogen 32 mg/dL (9-16); Calcium 8.6 mg/dL (8.4-10.2); Carbon Dioxide 19 mmol/L (22-29); Chloride 107 mmol/L (96-108); Creatinine Clr Calc Pharmacy 24.7; Estimated Glomerular Filt Rate 26; Glucose Fasting 121 mg/dL (60-99); Potassium 3.5 mmol/L (3.3-5.1); Sodium 135 mmol/L (135-145)
[2022-10-05] MEDS: Fluticasone Propionate 250 MCG BLST.W.DEV 1 PUFF INHALE ×2 (07:51→19:50)
--- NOTE | 2022-10-05 08:29 | HO.PM.IMPN ---
Subjective Subjective Date of Service: 10/05/22 Interval History: wants to go home Physical Exam Vital Signs: Vital Signs: Last Vital Signs Temp 99.8 F 10/05/22 07:07 Pulse 82 10/05/22 07:53 Resp 16 10/05/22 07:53 BP 155/70 H 10/05/22 07:07 Pulse Ox 95 10/05/22 07:07 O2 Del Method Nasal Cannula 10/05/22 07:07 O2 Flow Rate 2 10/05/22 07:07 BMI result Body Mass Index 24.9 Const: General: no acute distress HEENT: Head: Yes normocephalic and Yes atraumatic Neck: Neck: Yes supple Resp: Auscultation: diminished lung sounds Cardio: Heart sounds: S1 normal heart sound present and S2 normal heart sound present GI: Palpation (GI): Ascites present Percussion: Yes Fluid wave present Extrem: General: No edema Objective Data Active Medications Albuterol/Ipratropium (Albuterol/Iprat 2.5/0.5mg 3 Ml Ampul.Neb) 3 ml INHALE Q6H PRN PRN Reason: Dyspnea Amlodipine Besylate (Amlodipine Besylate 5 Mg Tablet) 5 mg PO DAILY [facility]; Protocol Last Admin: 10/03/22 07:45 Dose: 5 mg Documented By: LARISSA Baclofen (Baclofen 10 Mg Tablet) 10 mg PO BEDTIME PRN PRN Reason: muscle spasm Buprenorphine/Naloxone (Buprenorphine/Naloxone 8/2 Mg Film) 1 film BUCCAL DAILY [facility] Last Admin: 10/04/22 08:37 Dose: 1 film Documented By: LASHELL Docusate Sodium (Docusate Sodium 100 Mg Capsule) 100 mg PO DAILY [facility] Last Admin: 10/04/22 08:33 Dose: 100 mg Documented By: LASHELL Fluticasone Propionate (Fluticasone Propionate 250 Mcg Blst.W.Dev) 1 puff INHALE RBID [facility] Last Admin: 10/05/22 07:51 Dose: 1 puff Documented By: HILARIO Folic Acid (Folic Acid 1 Mg Tablet) 1 mg PO DAILY [facility] Last Admin: 10/04/22 08:33 Dose: 1 mg Documented By: LASHELL Heparin Sodium (Porcine) (Heparin Sodium,Porcine 5,000 Unit/Ml Vial) 5,000 unit SUBCUT Q12H [facility] Last Admin: 10/05/22 00:22 Dose: 5,000 unit Documented By: ZABRINA Lactulose (Lactulose 20 Gm/30 Ml Solution) 20 gm PO BID [facility] Last Admin: 10/04/22 19:48 Dose: 20 gm Documented By: CHRIS Omeprazole (Omeprazole 20 Mg Capsule.) 20 mg PO BID@0630,1630 [facility] Last Admin: 10/05/22 05:39 Dose: 20 mg Documented By: ZABRINA Ondansetron HCl (Ondansetron Hcl 4 Mg/2 Ml Vial) 4 mg IVPUSH Q8H PRN PRN Reason: Nausea and Vomiting Oxybutynin Chloride (Oxybutynin Chloride Er 5 Mg Tab.Er.24) 5 mg PO DAILY [facility] Last Admin: 10/04/22 08:33 Dose: 5 mg Documented By: LASHELL Pharmacy Consult (Consult Rx Perform Med Rec) 1 each MISCELLANE ONCE PRN PRN Reason: Consult order Rifaximin (Rifaximin 550 Mg Tablet) 550 mg PO BID [facility] Last Admin: 10/04/22 19:48 Dose: 550 mg Documented By: CHRIS Sertraline HCl (Sertraline Hcl 50 Mg Tablet) 150 mg PO DAILY [facility] Last Admin: 10/04/22 08:32 Dose: 150 mg Documented By: LASHELL Sodium Chloride (0.9 % Sodium Chloride Flush 3 Ml Syringe) 3 ml IVFLUSH QSHIFT [facility] Last Admin: 10/04/22 19:48 Dose: 3 ml Documented By: CHRIS Thiamine HCl (Thiamine Hcl 100 Mg Tablet) 100 mg PO DAILY [facility] Last Admin: 10/04/22 08:33 Dose: 100 mg Documented By: LASHELL Trazodone HCl (Trazodone Hcl 100 Mg Tablet) 100 mg PO BEDTIME [facility] Last Admin: 10/04/22 19:48 Dose: 100 mg Documented By: CHRIS Labs 10/05/22 05:34 10/05/22 05:34 Labs: Laboratory Results - last 24 hr 10/04/22 10/04/22 10/05/22 05:52 07:55 05:34 MCV 79.6 L MCH 24.3 L MCHC 30.5 L RDW 21.0 H Plt Count 74 L MPV 10.7 Absolute Nucleated RBC 0.000 Nucleated RBC % (auto) 0.0 Smear Path Review Anion Gap Estim Creat Clear Calc Estimated GFR Fasting Glucose Calcium Blood Type O Positive Antibody Screen NEGATIVE Crossmatch See Detail 10/05/22 05:34 MCV MCH MCHC RDW Plt Count MPV Absolute Nucleated RBC Nucleated RBC % (auto) Smear Path Review Anion Gap 13 Estim Creat Clear Calc 24.7 Estimated GFR 26 Fasting Glucose 121 H Calcium 8.6 Blood Type Antibody Screen Crossmatch Assessment and Plan (1) Acute kidney injury: Status: Acute (2) Encephalopathy, hepatic: Status: Acute (3) Cirrhosis of liver with ascites: Status: Acute Plan 56F PMH HCV/ETOH cirrhosis, mood disorder, copd, opiate dependence, htn, presented with ams acute metabolic encephalopathy due to hepatic encephalopathy in hcv/etoh cirrhosis improved with lactulose, having 3-4bm/daily rifaximin acute hpyoxic respiratory failure check cxr wean o2 as tolerated symptomatic ascites s/p 6.8L paracentesis 10/02/22 with albumin given no labs taken acute on chronic anemia no obvious blood loss transfused 1 unit prbc 10/04/22, monitor VLADIMIR ?HRS holding diuretics, given albumin monitor - continues to worsen nephro following htn holding amlodipine for soft bp mood disorder zoloft left wrist fracture and multiple fracture of ribs secondary to mechanical falls Left ring finger swollen with ring stuck , to cut the ring p.r.n. pain control COPD no in exacerbation duonebs prn opiate dependence suboxone DVT prophylaxis: Heparin subQ reason for continued hospitalization:worsening renal function, anemia needing transfusion Time Spent With Patient Time: Total time managing care of this patient today ____ minutes. Quality Stroke Does the patient have a stroke diagnosis?: No VTE Prior VTE?: No VTE Risk Level:: Medical - moderate - high VTE Device Contraindication: Treatment Not Indicated VTE Drug Contraindication: N/A - Med Ordered
[2022-10-05] MEDS: Docusate Sodium 100 MG CAPSULE PO (08:43)
[2022-10-05] MEDS: oxyBUTYnin chloride ER 5 MG TAB.ER.24 PO (08:43)
[2022-10-05] MEDS: Sertraline HCL 50 MG TABLET 150 MG PO (08:43)
[2022-10-05] MEDS: Lactulose 20 GM/30 ML SOLUTION PO ×2 (08:43→20:24)
[2022-10-05] MEDS: rifAXIMin 550 MG TABLET PO ×2 (08:43→20:24)
[2022-10-05] MEDS: Thiamine HCL 100 MG TABLET PO (08:43)
[2022-10-05] MEDS: Folic Acid 1 MG TABLET PO (08:43)
[2022-10-05] MEDS: Buprenorphine/Naloxone 8/2 mg FILM 1 FILM BUCCAL (08:44)
[2022-10-05] MEDS: 0.9 % Sodium Chloride Flush 3 ML SYRINGE IVFLUSH ×3 (09:37→20:24)
--- NOTE | 2022-10-05 10:47 | PM.PNNEP ---
Subjective Subjective Date of Service: 10/05/22 Interval history: seen and examined denies CP/SOB/N/V/D Physical Exam Vital Signs: Vital Signs: Last Vital Signs Temp 99.8 F 10/05/22 07:07 Pulse 82 10/05/22 07:53 Resp 16 10/05/22 07:53 BP 155/70 H 10/05/22 07:07 Pulse Ox 95 10/05/22 07:07 O2 Del Method Nasal Cannula 10/05/22 07:07 O2 Flow Rate 2 10/05/22 07:07 BMI result Body Mass Index 24.9 Const: General: no acute distress HEENT: Head: Yes normocephalic and Yes atraumatic Neck: Neck: Yes supple Resp: Auscultation: diminished lung sounds Cardio: Heart sounds: S1 normal heart sound present and S2 normal heart sound present GI: Palpation (GI): Ascites present Percussion: Yes Fluid wave present Extrem: General: No edema Objective Data Labs 10/05/22 05:34 10/05/22 05:34 Labs: Laboratory Results - last 24 hr 10/04/22 10/05/22 10/05/22 05:52 05:34 05:34 WBC 11.6 H RBC 3.13 L Hgb 7.6 L Hct 24.9 L MCV 79.6 L MCH 24.3 L MCHC 30.5 L RDW 21.0 H Plt Count 74 L MPV 10.7 Absolute Nucleated RBC 0.000 Nucleated RBC % (auto) 0.0 Smear Path Review Sodium 135 Potassium 3.5 Chloride 107 Carbon Dioxide 19 L Anion Gap 13 BUN 32 H Creatinine 1.96 H Estim Creat Clear Calc 24.7 Estimated GFR 26 Fasting Glucose 121 H Calcium 8.6 Procedures Date of Service Date of Service: 10/05/22 Assessment & Plan Assessment and plan (1) Acute kidney injury: Status: Acute (2) Cirrhosis of liver with ascites: Status: Acute Plan Scr up VLADIMIR due to pre renal state in the setting of liver cirrhosis ? acute tubular injury Chloe < 20 not c/w HRS-VLADIMIR probably underlying HRS-CKD h/o hepatitis C urine suggests microscopic hematuria proteinuria ~ 1.5 g complement level c3 and c4 pending REC c/w albumin infusion 25 g tid blood transfusion for Hb < 7 follow kidney function and electrolytes Time Spent With Patient Time: Total time managing care of this patient today ____ minutes. Progress Note: Quality Stroke Does the patient have a stroke diagnosis?: No
[2022-10-05 11:48] LABS: Complement C3 61 mg/dL (83-193)
[2022-10-05] MEDS: Albumin Human 25 % 100 ML IV ×2 (16:21→17:20)
[2022-10-05] MEDS: Furosemide 40 MG/4 ML VIAL IVPUSH (17:20)
[2022-10-05] MEDS: traZODone HCL 100 MG TABLET PO (20:24)
[2022-10-06 03:27] VITALS: BP 140/64; PULSE 84; RESP 16; TEMP 36.4; O2SAT 93
[2022-10-06] MEDS: Omeprazole 20 MG CAPSULE.DR PO ×2 (06:18→16:56)
[2022-10-06 06:22] LABS: Hematocrit 25.1 % (37.0-47.0); Hemoglobin 7.7 g/dl (12.0-16.0); Mean Corpuscular HGB Conc 30.7 g/dl (31.0-35.0); Mean Corpuscular Hemoglobin 24.3 pg (27.0-33.0); Mean Corpuscular Volume 79.2 fL (80.0-98.0); Mean Platelet Volume 9.8 fL (9.4-12.3); Red Blood Count 3.17 X10*6/uL (4.20-5.50); White Blood Count 10.7 X10*3/uL (4.8-10.8)
[2022-10-06 06:23] LABS: Platelet Count 70 X10*3/uL (160-400)
[2022-10-06 06:44] LABS: Anion Gap 10 (12-20); Blood Urea Nitrogen 34 mg/dL (9-16); Calcium 8.6 mg/dL (8.4-10.2); Carbon Dioxide 23 mmol/L (22-29); Chloride 107 mmol/L (96-108); Creatinine Clr Calc Pharmacy 24.5; Estimated Glomerular Filt Rate 26; Glucose Fasting 89 mg/dL (60-99); Potassium 3.4 mmol/L (3.3-5.1); Sodium 137 mmol/L (135-145)
[2022-10-06 07:44] VITALS: BP 148/70; PULSE 83; RESP 16; TEMP 36.2; O2SAT 92
[2022-10-06 07:46] VITALS: PULSE 86; RESP 18; O2SAT 94
[2022-10-06] MEDS: Fluticasone Propionate 250 MCG BLST.W.DEV 1 PUFF INHALE ×2 (07:46→19:27)
--- NOTE | 2022-10-06 08:02 | PM.PNNEP ---
Subjective Subjective Date of Service: 10/06/22 Interval history: seen and examined denies CP/SOB/N/V/D d/w medical attending Physical Exam Vital Signs: Vital Signs: Last Vital Signs Temp 97.1 F 10/06/22 07:44 Pulse 86 10/06/22 07:46 Resp 18 10/06/22 07:46 BP 148/70 H 10/06/22 07:44 Pulse Ox 92 10/06/22 07:44 O2 Del Method Nasal Cannula 10/06/22 07:44 O2 Flow Rate 2 10/06/22 07:44 BMI result Body Mass Index 24.9 Const: General: no acute distress HEENT: Head: Yes normocephalic and Yes atraumatic Neck: Neck: Yes supple Resp: Auscultation: diminished lung sounds Cardio: Heart sounds: S1 normal heart sound present and S2 normal heart sound present GI: Palpation (GI): Ascites present Percussion: Yes Fluid wave present Extrem: General: No edema Objective Data Labs 10/06/22 06:02 10/06/22 06:02 Labs: Laboratory Results - last 24 hr 10/03/22 10/06/22 10/06/22 11:50 06:02 06:02 WBC 10.7 RBC 3.17 L Hgb 7.7 L Hct 25.1 L MCV 79.2 L MCH 24.3 L MCHC 30.7 L RDW 21.0 H Plt Count 70 L MPV 9.8 Absolute Nucleated RBC 0.000 Nucleated RBC % (auto) 0.0 Sodium 137 Potassium 3.4 Chloride 107 Carbon Dioxide 23 Anion Gap 10 L BUN 34 H Creatinine 1.98 H Estim Creat Clear Calc 24.5 Estimated GFR 26 Fasting Glucose 89 Calcium 8.6 Complement C3 61 L Complement C4 7 L Procedures Date of Service Date of Service: 10/06/22 Assessment & Plan Assessment and plan (1) Acute kidney injury: Status: Acute (2) Cirrhosis of liver with ascites: Status: Acute Plan Scr seems to have peaked VLADIMIR due to pre renal state in the setting of liver cirrhosis supsect acute tubular injury significant ascites with ? ihigh intra abdominal pressure possibly causing pre renal state due to compromised venous return Chloe < 20 not c/w HRS-VLADIMIR probably underlying HRS-CKD h/o hepatitis C urine suggests microscopic hematuria proteinuria ~ 1.5 g complement level c3 and c4 low could be due to poor synthetic function REC paracentesis c/w albumin infusion 25 g tid blood transfusion for Hb < 7 follow kidney function and electrolytes Time Spent With Patient Time: Total time managing care of this patient today ____ minutes. Progress Note: Quality Stroke Does the patient have a stroke diagnosis?: No
--- NOTE | 2022-10-06 08:07 | P.PNIM_ITS ---
Subjective Subjective Date of Service: 10/06/22 Interval History: cough ,sob, abd more distended Physical Exam Vital Signs: Vital Signs: Last Vital Signs Temp 97.1 F 10/06/22 07:44 Pulse 86 10/06/22 07:46 Resp 18 10/06/22 07:46 BP 148/70 H 10/06/22 07:44 Pulse Ox 92 10/06/22 07:44 O2 Del Method Nasal Cannula 10/06/22 07:44 O2 Flow Rate 2 10/06/22 07:44 BMI result Body Mass Index 24.9 frail, ill appearing, alert, abd more distended, crackles Objective Data Active Medications Albuterol/Ipratropium (Albuterol/Iprat 2.5/0.5mg 3 Ml Ampul.Neb) 3 ml INHALE Q6H PRN PRN Reason: Dyspnea Amlodipine Besylate (Amlodipine Besylate 5 Mg Tablet) 5 mg PO DAILY [facility]; Protocol Last Admin: 10/03/22 07:45 Dose: 5 mg Documented By: LARISSA Baclofen (Baclofen 10 Mg Tablet) 10 mg PO BEDTIME PRN PRN Reason: muscle spasm Buprenorphine/Naloxone (Buprenorphine/Naloxone 8/2 Mg Film) 1 film BUCCAL DAILY [facility] Last Admin: 10/05/22 08:44 Dose: 1 film Documented By: ELMIRA Docusate Sodium (Docusate Sodium 100 Mg Capsule) 100 mg PO DAILY [facility] Last Admin: 10/05/22 08:43 Dose: 100 mg Documented By: ELMIRA Fluticasone Propionate (Fluticasone Propionate 250 Mcg Blst.W.Dev) 1 puff INHALE RBID [facility] Last Admin: 10/06/22 07:46 Dose: 1 puff Documented By: HILARIO Folic Acid (Folic Acid 1 Mg Tablet) 1 mg PO DAILY [facility] Last Admin: 10/05/22 08:43 Dose: 1 mg Documented By: ELMIRA Furosemide (Furosemide 40 Mg/4 Ml Vial) 40 mg IVPUSH BID@0900,1800 [facility]; Protocol Last Admin: 10/05/22 17:20 Dose: 40 mg Documented By: ELMIRA Heparin Sodium (Porcine) (Heparin Sodium,Porcine 5,000 Unit/Ml Vial) 5,000 unit SUBCUT Q12H [facility] Last Admin: 10/05/22 23:25 Dose: 5,000 unit Documented By: JOSIE Lactulose (Lactulose 20 Gm/30 Ml Solution) 20 gm PO BID [facility] Last Admin: 10/05/22 20:24 Dose: 20 gm Documented By: JOSIE Omeprazole (Omeprazole 20 Mg Capsule.) 20 mg PO BID@0630,1630 [facility] Last Admin: 10/06/22 06:18 Dose: 20 mg Documented By: JOSIE Ondansetron HCl (Ondansetron Hcl 4 Mg/2 Ml Vial) 4 mg IVPUSH Q8H PRN PRN Reason: Nausea and Vomiting Oxybutynin Chloride (Oxybutynin Chloride Er 5 Mg Tab.Er.24) 5 mg PO DAILY [facility] Last Admin: 10/05/22 08:43 Dose: 5 mg Documented By: ELMIRA Pharmacy Consult (Consult Rx Perform Med Rec) 1 each MISCELLANE ONCE PRN PRN Reason: Consult order Rifaximin (Rifaximin 550 Mg Tablet) 550 mg PO BID [facility] Last Admin: 10/05/22 20:24 Dose: 550 mg Documented By: JOSIE Sertraline HCl (Sertraline Hcl 50 Mg Tablet) 150 mg PO DAILY [facility] Last Admin: 10/05/22 08:43 Dose: 150 mg Documented By: ELMIRA Sodium Chloride (0.9 % Sodium Chloride Flush 3 Ml Syringe) 3 ml IVFLUSH QSHIFT [facility] Last Admin: 10/05/22 20:24 Dose: 3 ml Documented By: JOSIE Thiamine HCl (Thiamine Hcl 100 Mg Tablet) 100 mg PO DAILY [facility] Last Admin: 10/05/22 08:43 Dose: 100 mg Documented By: ELMIRA Trazodone HCl (Trazodone Hcl 100 Mg Tablet) 100 mg PO BEDTIME [facility] Last Admin: 10/05/22 20:24 Dose: 100 mg Documented By: JOSIE Labs 10/06/22 06:02 10/06/22 06:02 Labs: Laboratory Results - last 24 hr 10/03/22 10/06/22 10/06/22 11:50 06:02 06:02 MCV 79.2 L MCH 24.3 L MCHC 30.7 L RDW 21.0 H Plt Count 70 L MPV 9.8 Absolute Nucleated RBC 0.000 Nucleated RBC % (auto) 0.0 Anion Gap 10 L Estim Creat Clear Calc 24.5 Estimated GFR 26 Fasting Glucose 89 Calcium 8.6 Complement C3 61 L Complement C4 7 L Assessment and Plan (1) Acute kidney injury: Status: Acute (2) Encephalopathy, hepatic: Status: Acute (3) Cirrhosis of liver with ascites: Status: Acute Plan 56F PMH HCV/ETOH cirrhosis, mood disorder, copd, opiate dependence, htn, presented with ams acute metabolic encephalopathy due to hepatic encephalopathy in hcv/etoh cirrhosis improved with lactulose, having 3-4bm/daily rifaximin acute hpyoxic respiratory failure due to acute on chronic diastolic chf iv lasix wean o2 as tolerated symptomatic ascites s/p 6.8L paracentesis 10/02/22 with albumin given now with recurrent distension, will pursue further paracentesis acute on chronic anemia no obvious blood loss transfused 1 unit prbc 10/04/22, monitor VLADIMIR ?ATN nephro following appears to be plateauing around 1.9, monitor htn holding amlodipine for soft bp mood disorder zoloft left wrist fracture and multiple fracture of ribs secondary to mechanical falls Left ring finger swollen with ring stuck , to cut the ring p.r.n. pain control COPD no in exacerbation duonebs prn opiate dependence suboxone DVT prophylaxis: Heparin subQ reason for continued hospitalization:hypoixa, diureiss, paracenetesis Time Spent With Patient Time: Total time managing care of this patient today ____ minutes. Quality Stroke Does the patient have a stroke diagnosis?: No VTE Prior VTE?: No VTE Risk Level:: Medical - moderate - high VTE Device Contraindication: Treatment Not Indicated VTE Drug Contraindication: N/A - Med Ordered
[2022-10-06] MEDS: Lactulose 20 GM/30 ML SOLUTION PO ×2 (08:18→21:10)
[2022-10-06] MEDS: rifAXIMin 550 MG TABLET PO ×2 (08:18→21:11)
[2022-10-06] MEDS: Docusate Sodium 100 MG CAPSULE PO (08:18)
[2022-10-06] MEDS: Buprenorphine/Naloxone 8/2 mg FILM 1 FILM BUCCAL (08:18)
[2022-10-06] MEDS: Furosemide 40 MG/4 ML VIAL IVPUSH ×2 (08:18→16:56)
[2022-10-06] MEDS: Thiamine HCL 100 MG TABLET PO (08:18)
[2022-10-06] MEDS: Folic Acid 1 MG TABLET PO (08:18)
[2022-10-06] MEDS: Sertraline HCL 50 MG TABLET 150 MG PO (08:18)
[2022-10-06] MEDS: oxyBUTYnin chloride ER 5 MG TAB.ER.24 PO (08:19)
[2022-10-06] MEDS: 0.9 % Sodium Chloride Flush 3 ML SYRINGE IVFLUSH ×3 (08:24→21:12)
[2022-10-06] MEDS: Lidocaine HCl 1 % MPF 5 ML VIAL SUBCUT (12:25)
--- NOTE | 2022-10-06 14:14 | MHC.CM.PN ---
EMR REVIEWED AND PER MD ROUNDS, PT IS NOT MEDICALLY CLEARED FOR DC (SOB, COUGH, PARACENTESIS TODAY) CM WILL CONTINUE TO FOLLOW, PT VERY LETHARGIC POST PROCEDURE.
[2022-10-06] MEDS: Heparin Sodium,Porcine 5,000 UNIT/ML VIAL 5000 UNIT SUBCUT ×2 (14:26→23:56)
[2022-10-06 14:59] VITALS: BP 128/63; PULSE 77; RESP 18; TEMP 36; O2SAT 98
[2022-10-06 19:28] VITALS: PULSE 77; RESP 18; O2SAT 96
[2022-10-06 19:49] VITALS: BP 142/67; PULSE 78; RESP 18; TEMP 36.5; O2SAT 93
[2022-10-06] MEDS: traZODone HCL 100 MG TABLET PO (21:11)
[2022-10-06] MEDS: Acetaminophen 325 MG TABLET 650 MG PO (23:54)
[2022-10-07 00:12] VITALS: BP 133/83; PULSE 69; RESP 18; TEMP 37; O2SAT 96
[2022-10-07] MEDS: Omeprazole 20 MG CAPSULE.DR PO (06:06)
[2022-10-07 07:20] VITALS: BP 118/65; PULSE 70; RESP 16; TEMP 36.4; O2SAT 94
[2022-10-07 07:37] VITALS: PULSE 79; RESP 18; O2SAT 95
[2022-10-07] MEDS: Fluticasone Propionate 250 MCG BLST.W.DEV 1 PUFF INHALE (07:37)
[2022-10-07 07:53] LABS: Hematocrit 26.5 % (37.0-47.0); Hemoglobin 8.2 g/dl (12.0-16.0); Mean Corpuscular HGB Conc 30.9 g/dl (31.0-35.0); Mean Corpuscular Hemoglobin 24.2 pg (27.0-33.0); Mean Corpuscular Volume 78.2 fL (80.0-98.0); Mean Platelet Volume 9.9 fL (9.4-12.3); Platelet Count 79 X10*3/uL (160-400); Red Blood Count 3.39 X10*6/uL (4.20-5.50); Red Cell Distribution Width 21.2 % (11.0-16.0); White Blood Count 8.3 X10*3/uL (4.8-10.8)
--- NOTE | 2022-10-07 07:55 | PM.PNNEP ---
Subjective Subjective Date of Service: 10/07/22 Interval history: seen and examined sleeping Physical Exam Vital Signs: Vital Signs: Last Vital Signs Temp 97.6 F 10/07/22 07:20 Pulse 79 10/07/22 07:37 Resp 18 10/07/22 07:37 BP 118/65 10/07/22 07:20 Pulse Ox 94 10/07/22 07:20 O2 Del Method Nasal Cannula 10/07/22 07:20 O2 Flow Rate 2 10/07/22 07:20 BMI result Body Mass Index 24.9 Const: General: no acute distress HEENT: Head: Yes normocephalic and Yes atraumatic Neck: Neck: Yes supple Resp: Auscultation: diminished lung sounds Cardio: Heart sounds: S1 normal heart sound present and S2 normal heart sound present GI: Palpation (GI): Ascites present Percussion: Yes Fluid wave present Extrem: General: No edema Objective Data Labs 10/07/22 06:53 10/06/22 06:02 Labs: Laboratory Results - last 24 hr 10/07/22 06:53 WBC 8.3 RBC 3.39 L Hgb 8.2 L Hct 26.5 L MCV 78.2 L MCH 24.2 L MCHC 30.9 L RDW 21.2 H Plt Count 79 L MPV 9.9 Absolute Nucleated RBC 0.000 Nucleated RBC % (auto) 0.0 Procedures Date of Service Date of Service: 10/07/22 Assessment & Plan Assessment and plan (1) Acute kidney injury: Status: Acute (2) Cirrhosis of liver with ascites: Status: Acute Plan s/p paracentesis VLADIMIR due to pre renal state in the setting of liver cirrhosis supsect acute tubular injury significant ascites with ? high intra abdominal pressure possibly causing pre renal state due to compromised venous return Chloe < 20 not c/w HRS-VLADIMIR probably underlying HRS-CKD h/o hepatitis C urine suggests microscopic hematuria proteinuria ~ 1.5 g complement level c3 and c4 low could be due to poor synthetic function REC c/w IV furosemide spironolactone when kidney function at baseline c/w albumin infusion 25 g tid follow kidney function and electrolytes Time Spent With Patient Time: Total time managing care of this patient today ____ minutes. Progress Note: Quality Stroke Does the patient have a stroke diagnosis?: No
[2022-10-07 07:56] LABS: Anion Gap 11 (12-20); Blood Urea Nitrogen 36 mg/dL (9-16); Calcium 8.2 mg/dL (8.4-10.2); Carbon Dioxide 25 mmol/L (22-29); Chloride 105 mmol/L (96-108); Creatinine Clr Calc Pharmacy 25.1; Estimated Glomerular Filt Rate 27; Glucose Fasting 94 mg/dL (60-99); Potassium 2.8 mmol/L (3.3-5.1); Sodium 138 mmol/L (135-145)
[2022-10-07] MEDS: rifAXIMin 550 MG TABLET PO (08:48)
[2022-10-07] MEDS: 0.9 % Sodium Chloride Flush 3 ML SYRINGE IVFLUSH (08:48)
[2022-10-07] MEDS: Lactulose 20 GM/30 ML SOLUTION PO (08:48)
[2022-10-07] MEDS: Sertraline HCL 50 MG TABLET 150 MG PO (08:48)
[2022-10-07] MEDS: Potassium Chloride ER 20 MEQ TAB.ER.PRT 40 MEQ PO (08:48)
[2022-10-07] MEDS: oxyBUTYnin chloride ER 5 MG TAB.ER.24 PO (08:49)
[2022-10-07] MEDS: Folic Acid 1 MG TABLET PO (08:49)
[2022-10-07] MEDS: Furosemide 40 MG/4 ML VIAL IVPUSH (08:49)
[2022-10-07] MEDS: Docusate Sodium 100 MG CAPSULE PO (08:49)
[2022-10-07] MEDS: Buprenorphine/Naloxone 8/2 mg FILM 1 FILM BUCCAL (08:49)
[2022-10-07] MEDS: Thiamine HCL 100 MG TABLET PO (08:49)
[2022-10-07 11:16] VITALS: PULSE 67; PULSE 68; PULSE 70; PULSE 72; PULSE 74; O2SAT 88; O2SAT 90; O2SAT 94; O2SAT 95
--- NOTE | 2022-10-07 11:25 | P.DS_ITS ---
DS: Providers Provider Date of Service: 10/07/22 Date of admission: 09/28/22 23:47 Primary care physician: Amina Malone DO Consults: 10/03/22 07:31 Consult to Nephrology Routine Consulting Provider: Percy Mohamud Reason for consultation: bria in cirrhosis DS: Diagnosis Discharge Diagnosis (1) Acute kidney injury: Status: Acute (2) Cirrhosis of liver with ascites: Status: Acute DS: Summary Hospital Course Hospital Course: from initial hpi: 56F past medical history of COPD, hypertension, alcoholic liver cirrhosis, with ascites undergoes weekly paracentesis comes into the hospital with reported confusion.? Patient is very somnolent, history is obtained mostly from ED physician.? She present to the ED with generalized weakness, multiple falls, and increased confusion.? Patient otherwise denied any other symptoms to the ED physician.? For me she is arousable but falls right back asleep. ? On arrival to the ED patient hemodynamically stable found to have 80% oxygen on room air,? patient now placed on 2 L oxygen satting 100% ?labs are significant for WBC count of 12.0, hemoglobin of 8.0,? hematocrit 26.3, this appears to be chronic, INR of 1.6, ammonia of 86, troponin of 11.5, UA positive for leukocyte Estrace but no bacteria ?unclear patient has been taking her lactulose at home ?imaging including head CT, cervical spine CT, rectus x-ray, x-ray, wrist x-ray showed but chest x-ray shows redemonstrated intra-articular fractures of the distal radius with nondisplaced fracture of the distal ulna, chest x-ray shows age indeterminate right-sided 7th and 8th rib fracture, new compared to 2020, chronic interstitial coarsening no focal airspace opacity ?patient started on lactulose in the ED and will be admitted for further manag ement hospital course: Patient was admitted for acute metabolic encephalopathy due to hepatic encephalopathy in the setting of hepatitis C and alcoholic cirrhosis. She was given lactulose and rifaximin had multiple bowel movements per day and mental status returned to baseline. Course was complicated by acute hypoxic respiratory failure due to acute on chronic CHF with preserved ejection fracti on. She was treated with IV Lasix and shortness of breath improved. At time of discharge patient is still requiring oxygen and will be going home on 3 L oxygen on exertion. For symptomatic ascites patient underwent 2 paracenteses about 11 L removed total. For acute on chronic anemia she was transfused 1 unit packed RBCs, no evidence of bleeding. For acute kidney injury, this is likely ATN, cr eatinine has plateaued of about 1.9. Hypertension amlodipine was held for soft blood pressure. For mood disorder she was continued on Zoloft. For left wrist fracture and multiple fractures of ribs secondary to mechanical falls she was given p.r.n. pain control. She was seen by physical therapy who recommended short-term rehab at [facility] facility, this was strongly recommended to patient that she continues to be high risk for falls. Patient is not interested in prison placement, she is aware of risk of further falls and wishes to go home anyways. For history of COPD she was continued on DuoNebs as needed. For opiate dependence she was continued on Suboxone. Patient's prognosis is guarded, however, she is currently medically stable will be discharged home. Time Spent with Patient Time attestation: Total time managing care of this patient today ____ minutes. Discharge coordination time: Greater than 30 minutes Quality: Safe Use of Opioids Does Pt have an Active Cancer Diagnosis on the Problem List?: No Quality: Stroke Does the patient have a stroke diagnosis?: No Physical Exam Vital Signs: Vital Signs: Last Vital Signs Temp 97.6 F 10/07/22 07:20 Pulse 79 10/07/22 07:37 Resp 18 10/07/22 07:37 BP 118/65 10/07/22 07:20 Pulse Ox 94 10/07/22 07:20 O2 Del Method Nasal Cannula 10/07/22 07:20 O2 Flow Rate 2 10/07/22 07:20 BMI result Body Mass Index 24.9 Const: General: no acute distress HEENT: Head: Yes normocephalic and Yes atraumatic Neck: Neck: Yes supple Resp: Auscultation: diminished lung sounds Cardio: Heart sounds: S1 normal heart sound present and S2 normal heart sound present GI: Palpation (GI): Ascites present Percussion: Yes Fluid wave present Extrem: General: No edema DS: Data Data Completed and Pending Completed studies during hospitalization [Text1]: Procedures Detoxification Services for Substance Abuse Treatment (07/20/20) Drainage of Peritoneal Cavity, Percutaneous Approach (08/14/20) Transfusion of Nonautologous Platelets into Peripheral Vein, Percutaneous Approach (07/20/20) Labs on day of discharge: Laboratory Results - last 24 hr 10/07/22 10/07/22 06:53 06:53 WBC 8.3 RBC 3.39 L Hgb 8.2 L Hct 26.5 L MCV 78.2 L MCH 24.2 L MCHC 30.9 L RDW 21.2 H Plt Count 79 L MPV 9.9 Absolute Nucleated RBC 0.000 Nucleated RBC % (auto) 0.0 Sodium 138 Potassium 2.8 L Chloride 105 Carbon Dioxide 25 Anion Gap 11 L BUN 36 H Creatinine 1.93 H Estim Creat Clear Calc 25.1 Estimated GFR 27 Fasting Glucose 94 Calcium 8.2 L Discharge Plan Discharge Anticipated Discharge Date/Time: 10/05/22 08:28 Patient Disposition: Home Health Service Discharge Diagnosis: hepatic encephalopathy Referrals: Amina Malone DO [Primary Care Provider] - 1 Week Discharge Medications: New lactulose 20 gram/30 mL Solution 20 g PO BID Qty: 1200 0RF Continued Xifaxan 550 mg tablet 550 mg PO BID 30 Days Qty: 60 3RF Rx Instructions: Take one tablet by mouth twice a day docusate sodium [DOK] 100 mg capsule 100 mg PO DAILY multivitamin Tablet 1 tab PO DAILY trazodone 50 mg Tablet 100 mg PO BEDTIME sertraline 50 mg Tablet 150 mg PO DAILY@1200 buprenorphine-naloxone [Suboxone] 8-2 mg Film 1 film BUCCAL DAILY thiamine HCl (vitamin B1) 100 mg tablet 1 tab PO QAM oxybutynin chloride 5 mg tablet extended release 24hr 1 tab PO QAM folic acid 1 mg tablet 1 tab PO QAM fluticasone propionate [Flovent HFA] 220 mcg/actuation HFA aerosol inhaler 1 puff INHALATION BID fluticasone propionate 50 mcg/actuation spray,suspension 2 spray intranasal DAILY PRN (Reason: Allergic Symptoms) baclofen 10 mg tablet 10 mg PO BEDTIME PRN (Reason: muscle spasm) Combivent Respimat 20-100 mcg/actuation mist 1 puff inhalation QID PRN (Reason: Wheezing) furosemide 40 mg tablet 40 mg PO BID@0900,1200 spironolactone 25 mg tablet 100 mg PO DAILY omeprazole 20 mg capsule,delayed release(DR/EC) 20 mg PO BID Discontinued amlodipine 5 mg tablet 1 tab PO QAM Discharge Orders: Discharge Order (Routine); Ordered 10/07/22 Ordered By: Octavio Pugh Diet: Advance to usual diet Activity on Discharge: As tolerated Stand Alone Forms: Patient Portal Discharge page Care Plan Goals: recovery Health Concerns: cirrhosis Plan of Treatment: meds as prescribed, no smoking or etoh Assessment: see above Discharge Date/Time: 10/07/22 13:32
--- NOTE | 2022-10-07 11:50 | MHC.CM.PN ---
Addendum entered by Aurelia Kirk 10/07/22 14:02: KARRIE GARCIA ARRANGED AND COMPLETED PER NOTIFICATION Original Note: CM MET WITH T TO DISCUSS DC PLAN SHE IS AWARE STR WAS RECOMMENDED AND CONTINUES TO REFUSE SHE SAYS SHE IS OPEN TO [facility] BUT DOES NOT WANT THEM COMING ALL THE TIME SHE WAS INFORMED THEY WOULD ONLY COME A COUPLE OF TIMES PER WEEK AT THE MOST SHE SAYS SHE ALSO DOES NOT WANT THEM TO COME SOON SHE GOES HOME, SHE SAYS SHE WANTS A COUPLE OF DAYS TO SETTLE AND PREPARE FOR THE VISITS. SHE ADMITS SHE HAS TO ARRANGE HER FRONT ROOM IT IS CLUTTERED. MESSAGE SENT TO NA WITH PTS REQUEST AND NOTICE OF DC VIA [employer] PT DOES NOT HAVE TRANSPORTATION, SHE IS AWARE CM WILL ATTEMPT TO ARRANGE
[2022-10-07] MEDS: Heparin Sodium,Porcine 5,000 UNIT/ML VIAL 5000 UNIT SUBCUT (11:56)
--- NOTE | 2022-10-07 11:56 | P.F2F_ITS ---
Service Date Service Date: 10/07/22 Encounter Date of encounter: 10/07/22 Reasons for Services Signs and symptoms assessed: frequent falls Reason for senior care: neurological assessment, medication management, medication treatment and teach disease management Homebound: Leaving the home is medically contraindicated at this time without the asist of a device and/or another person due th the listed conditions above and below. Reason homebound: unsteady gait / fall risk Certification: Based on the above findings, I certify that this patient is confined to the home and needs intermittent senior care care, physical therapy and/or speech therapy, or continues to need occupational therapy. The patient is under my care, and I have initiated the establishment of the plan of care. The patient will be followed by a physician who will periodically review the plan of care. Time Spent With Patient Time: Total time managing care of this patient today ____ minutes.
== END 2022-10-07 13:32 | disposition home health service (06) | DRG 280 ==
LOC: HO.ED 23:38 → HO.EDOVER 23:54 → HO.S3 09-29 16:43
PROVIDERS: Internal Medicine Nephrology; Radiology Diagnostic Radiology; Student in an Organized Health Care Education/Training Program; Admitting Provider Internal Medicine; Emergency Provider Emergency Medicine; PCP Family Medicine; Visit Provider Internal Medicine
PROC: 0W9G3ZZ Drainage of Peritoneal Cavity, Percutaneous Approach (ICD-10-PCS; principal; 2022-10-02 09:00)
DX: K70.31 Alcoholic cirrhosis of liver with ascites (principal); N17.0 Acute kidney failure with tubular necrosis; J96.01 Acute respiratory failure with hypoxia; I50.33 Acute on chronic diastolic (congestive) heart failure; E72.20 Disorder of urea cycle metabolism, unspecified; G93.41 Metabolic encephalopathy; S52.502A Unspecified fracture of the lower end of left radius, initial encounter for closed fracture; K76.82 Hepatic encephalopathy; S22.41XA Multiple fractures of ribs, right side, initial encounter for closed fracture; D64.89 Other specified anemias; S52.202A Unspecified fracture of shaft of left ulna, initial encounter for closed fracture; W19.XXXA Unspecified fall, initial encounter; F11.20 Opioid dependence, uncomplicated; I13.0 Hypertensive heart and chronic kidney disease with heart failure and stage 1 through stage 4 chronic kidney disease, or unspecified chronic kidney disease; N18.9 Chronic kidney disease, unspecified; J44.9 Chronic obstructive pulmonary disease, unspecified; R31.29 Other microscopic hematuria; F17.210 Nicotine dependence, cigarettes, uncomplicated; Z71.6 Tobacco abuse counseling; Z86.19 Personal history of other infectious and parasitic diseases; Z79.51 Long term (current) use of inhaled steroids; Z79.899 Other long term (current) drug therapy
CPT/HCPCS: 36415; 36600; 49083; 70450; 71045; 71100; 72125; 73030; 73080; 73110; 73600; 80048; 80076; 81001; 82140; 82803; 83690; 84156; 84300; 84484; 85025; 85027; 85610; 86160; 86850; 86900; 86901; 86923; 93005; 94640; 97162; 99285; J0696; J1643; J1940; P9016; P9047

== ENCOUNTER → 2022-09-28 20:48 | Outpatient (BNV) | payer MEDICAID, SELFPAY | PROVIDERS: Admitting Provider Internal Medicine; Emergency Provider Emergency Medicine; PCP Family Medicine; Visit Provider Internal Medicine Cardiovascular Disease | DX: R94.31 Abnormal electrocardiogram [ECG] [EKG] (principal) | CPT/HCPCS: 93010 ==

== ENCOUNTER 2022-09-28 23:47 | Outpatient (BNV) | payer MEDICAID, SELFPAY | END 2022-10-02 09:09 | PROVIDERS: Admitting Provider Internal Medicine; Emergency Provider Emergency Medicine; PCP Family Medicine; Visit Provider Radiology Diagnostic Radiology | DX: K70.31 Alcoholic cirrhosis of liver with ascites (principal) | CPT/HCPCS: 49083 ==

== ENCOUNTER 2022-09-28 23:47 | Outpatient (BNV) | payer MEDICAID, SELFPAY | END 2022-10-06 11:01 | PROVIDERS: Admitting Provider Internal Medicine; Emergency Provider Emergency Medicine; PCP Family Medicine; Visit Provider Radiology Diagnostic Radiology | DX: K70.31 Alcoholic cirrhosis of liver with ascites (principal) | CPT/HCPCS: 49083 ==

== ENCOUNTER → 2022-09-28 23:47 | Outpatient (BNV) | payer MEDICAID, SELFPAY | PROVIDERS: Admitting Provider Internal Medicine; Emergency Provider Emergency Medicine; PCP Family Medicine; Visit Provider Internal Medicine | DX: N17.9 Acute kidney failure, unspecified (principal); K74.60 Unspecified cirrhosis of liver; R18.8 Other ascites | CPT/HCPCS: 99223; 99232; 99233; 99239; 99499 ==

== ENCOUNTER 2022-10-23 12:20 | Outpatient (REF) | payer MEDICAID, SELFPAY ==
[2022-10-23 13:39] LABS: MANUAL DIFF FLAG NO
[2022-10-23 14:04] LABS: Basophils Percent Auto 0.8 % (0-2); Eosinophils Absolute Auto 0.1 X10*3/uL (0.0-0.4); Eosinophils Percent Auto 1.6 % (0-4); Hematocrit 28.4 % (37.0-47.0); Imm Gran Abs Auto 0.01 X10*3/uL (0.00-0.03); Imm Gran Pct Auto 0.3 % (0.0-0.4); Lymphocytes Absolute Auto 0.5 X10*3/uL (1.2-4.9); Mean Corpuscular HGB Conc 31.7 g/dl (31.0-35.0); Mean Corpuscular Volume 78.9 fL (80.0-98.0); Monocytes Absolute Auto 0.5 X10*3/uL (0.1-1.2); Monocytes Percent Auto 11.7 % (2-11); Neutrophils Absolute Auto 2.8 x10*3/uL (2.0-8.3); Neutrophils Percent Auto 72.6 % (45-73); Platelet Count 74 X10*3/uL (160-400); Red Cell Distribution Width 24.8 % (11.0-16.0); White Blood Count 3.9 X10*3/uL (4.8-10.8)
[2022-10-23 15:18] LABS: Estimated Average Glucose 100 mg/dL; Hemoglobin A1c % 5.1 %
[2022-10-23 15:38] LABS: Alanine Aminotransferase 16 U/L (0-31); Albumin Level 3.1 g/dL (3.5-5.0); Alkaline Phosphatase 137 U/L (39-117); Anion Gap 15 (12-20); Aspartate Amino Transferase 43 U/L (5-31); Bilirubin Direct 0.7 mg/dL (0.0-0.5); Bilirubin Total 1.2 mg/dL (0.0-1.0); Blood Urea Nitrogen 21 mg/dL (9-16); Calcium 8.5 mg/dL (8.4-10.2); Carbon Dioxide 20 mmol/L (22-29); Chloride 103 mmol/L (96-108); Cholesterol 75 mg/dL; Estimated Glomerular Filt Rate 45; Glucose Random 90 mg/dL (60-115); HDL Cholesterol 15 mg/dL; Iron 85 mcg/dL (30-160); LDL Cholesterol Calculated 38 mg/dl; Percent Iron Saturation 35 % (15-50); Potassium 3.5 mmol/L (3.3-5.1); Sodium 134 mmol/L (135-145); Total Iron Binding Capacity 243 mcg/dL (228-428); Total Protein 7.8 g/dL (6.5-8.0); Triglycerides 112 mg/dL; Unsaturated Iron Binding 158 ug/dL
[2022-10-23 15:57] LABS: Ferritin 110 ng/mL (10-250); Free T4 (Free Thyroxine) 0.63 ng/dL (0.71-1.85); Thyroid Stimulating Hormone 3.46 uIU/mL (0.32-4.0); Vitamin D 25-OH Total 5.4 ng/mL (>30)
[2022-10-23 16:01] LABS: Folate 18.8 ng/mL (> or = 4.0); Vitamin B12 1233 pg/mL (200-900)
[2022-10-24 09:01] LABS: Leukocytes Stool Qualitative NEGATIVE (NEGATIVE)
[2022-10-24 12:28] LABS: CDiff Gene PCR NEGATIVE (Negative)
[2022-10-24 14:57] LABS: Adenovirus F 40/41 Not Detected (Not Detect.); Campylobacter Not Detected (Not Detect.); Cryptosporidium Not Detected (Not Detect.); Cyclospora cayetanensis Not Detected (Not Detect.); E. coli EAEC Not Detected (Not Detect.); E. coli EPEC Not Detected (Not Detect.); E. coli ETEC Not Detected (Not Detect.); E. coli STEC Not Detected (Not Detect.); Entamoeba histolytica Not Detected (Not Detect.); Giardia lamblia Not Detected (Not Detect.); Plesiomonas shigelloides Not Detected (Not Detect.); Salmonella Not Detected (Not Detect.); Shigella sp./EIEC Not Detected (Not Detect.); Vibrio Not Detected (Not Detect.); Vibrio Cholerae Not Detected (Not Detect.); Yersinia enterocolitica Not Detected (Not Detect.)
[2022-10-24 14:58] LABS: Astrovirus Not Detected (Not Detect.); Norovirus GI/GII Not Detected (Not Detect.); Rotavirus A Not Detected (Not Detect.); Sapovirus Not Detected (Not Detect.)
== END 2022-10-23 12:21 | disposition home or self-care (01) ==
LOC: HO.HHCL 12:20
PROVIDERS: Visit Provider Family Medicine
DX: K76.82 Hepatic encephalopathy (principal); D64.9 Anemia, unspecified; R19.7 Diarrhea, unspecified; S62.102A Fracture of unspecified carpal bone, left wrist, initial encounter for closed fracture; R06.09 Other forms of dyspnea
CPT/HCPCS: 36415; 80048; 80061; 80076; 82140; 82306; 82607; 82728; 82746; 83036; 83540; 84439; 84443; 85025; 87493; 87507; 89055

== ENCOUNTER 2022-10-26 13:29 | Day surgery (SDC) | payer MEDICAID, SELFPAY ==
--- NOTE | ~2022-10-26 | US_ITS ---
Paracentesis INDICATIONS: Recurrent ascites After informed and written consent was obtained an official timeout was performed immediately prior to the procedure. PROCEDURE: Initial ultrasound surveillance of the abdomen demonstrates a large amount of ascitic fluid throughout the abdomen. A large pocket of fluid was identified in the right lower quadrant. The skin was prepped and draped in usual fashion overlying this area. 1% lidocaine was used for local anesthetic. A 5 Italian Yueh catheter was placed under ultrasound guidance into the ascitic fluid and 2.3 L of slightly cloudy fluid was drained. The catheter was removed. US/US paracentesis abd w/image IMPRESSION: Paracentesis with 2.3 L of fluid drained
[2022-10-26] MEDS: Lidocaine HCl 1 % MPF 5 ML VIAL SUBCUT (14:18)
[2022-10-26 14:25] VITALS: BP 131/65; PULSE 87; RESP 13; TEMP 36.6; O2SAT 93
[2022-10-26 14:40] VITALS: BP 141/60; PULSE 85; RESP 14; O2SAT 96
[2022-10-26 14:55] VITALS: BP 143/73; PULSE 89; RESP 16; TEMP 36.8; O2SAT 96
== END 2022-10-26 15:11 | disposition home or self-care (01) ==
PROVIDERS: PCP Family Medicine; Visit Provider Radiology Diagnostic Radiology
DX: R18.8 Other ascites (principal); K74.60 Unspecified cirrhosis of liver
CPT/HCPCS: 49083; P9047

== ENCOUNTER → 2022-10-26 13:31 | Outpatient (BNV) | payer MEDICAID, SELFPAY | PROVIDERS: PCP Family Medicine; Visit Provider Radiology Vascular & Interventional Radiology | DX: R18.8 Other ascites (principal) | CPT/HCPCS: 49083 ==

== ENCOUNTER 2022-11-09 05:14 | Outpatient (REF) | payer MEDICAID, SELFPAY | END 2022-11-09 05:15 | disposition home or self-care (01) | LOC: HO.HOSX 05:14 | PROVIDERS: Visit Provider Physician Assistant | DX: Z13.89 Encounter for screening for other disorder (principal) ==

== ENCOUNTER 2022-11-09 14:52 | Day surgery (SDC) | payer MEDICAID, SELFPAY ==
--- NOTE | ~2022-11-09 | US_ITS ---
Paracentesis INDICATIONS: Recurrent ascites After informed and written consent was obtained an official timeout was performed immediately prior to the procedure. PROCEDURE: The skin was prepped and draped in usual fashion in the right upper quadrant. 1% Xylocaine was used for local anesthetic. Under ultrasound guidance a 5 Serbian Yueh catheter was placed into the right upper quadrant. 1.9 L of fluid was drained. US/US paracentesis abd w/image IMPRESSION: Paracentesis with 1.9 L of fluid drained
--- NOTE | 2022-11-09 13:17 | PC.NURSE ---
message left at pt's listed phone # [phone] - reminder of arrival time for 1300 & please call to confirm whether she is coming for procedure today for paracentis in IR. call placed to primary contact tania [phone] - busy signal/no answer. message left with secondary contact felicity edwards no answer - message left call back for confirmation. meeting facilitator adonis notified.
[2022-11-09 16:15] VITALS: BP 163/92; PULSE 76; RESP 18; TEMP 36.3; O2SAT 94
--- NOTE | 2022-11-09 16:20 | PC.NURSE ---
Per Lois HANDY RN, Dr. Robb indicated that no preop labs are required for this procedure.
--- NOTE | 2022-11-09 16:59 | PC.NURSE ---
Call placed to patient family/son, Weston, who indicated that he will be present to assist patient get into home and help her following procedure
[2022-11-09] MEDS: Lidocaine HCl 1 % MPF 5 ML VIAL SUBCUT (17:04)
[2022-11-09 17:09] VITALS: BP 162/85; PULSE 83; RESP 20; TEMP 36.4; O2SAT 95
[2022-11-09 17:23] VITALS: BP 171/92; PULSE 83; RESP 20; O2SAT 95
[2022-11-09 17:38] VITALS: BP 182/82; PULSE 85; RESP 20; O2SAT 95
[2022-11-09 18:15] VITALS: BP 173/85; PULSE 86; RESP 20; O2SAT 95
== END 2022-11-09 18:40 | disposition home or self-care (01) ==
LOC: HO.US 15:02 → HO.SSS 15:54
PROVIDERS: PCP Family Medicine; Visit Provider Radiology Diagnostic Radiology
DX: R18.8 Other ascites (principal); K74.60 Unspecified cirrhosis of liver; B18.2 Chronic viral hepatitis C; F10.10 Alcohol abuse, uncomplicated; D61.818 Other pancytopenia; R16.1 Splenomegaly, not elsewhere classified; J44.9 Chronic obstructive pulmonary disease, unspecified; Z79.51 Long term (current) use of inhaled steroids; Z79.899 Other long term (current) drug therapy
CPT/HCPCS: 49083

== ENCOUNTER → 2022-11-09 15:08 | Outpatient (BNV) | payer MEDICAID, SELFPAY | PROVIDERS: PCP Family Medicine; Visit Provider Radiology Vascular & Interventional Radiology | DX: R18.8 Other ascites (principal) | CPT/HCPCS: 49083 ==

== ENCOUNTER 2022-11-13 05:34 | Outpatient (REF) | payer MEDICAID, SELFPAY ==
--- NOTE | ~2022-11-13 | XR_ITS ---
EXAMINATION: XR WRIST, LEFT CLINICAL INFORMATION: Pain. COMPARISON: Prior radiographs, most recently 09/29/2022. TECHNIQUE: PA, lateral, and oblique views of the left wrist. FINDINGS: There is stable alignment of displaced radial and ulnar fractures. There is persistent volar angulation and displacement of the distal fracture fragments. There is good periosteal callus formation. There is generalized soft tissue swelling. No foreign body is seen. XR/XR wrist LT min 3V IMPRESSION: There is stable alignment of a displaced left distal radial ulnar fractures, with persistent volar angulation and displacement. There is good, increased periosteal callus formation.
== END 2022-11-13 05:35 | disposition home or self-care (01) ==
LOC: HO.HOSX 05:34
PROVIDERS: Visit Provider Physician Assistant
DX: S52.502A Unspecified fracture of the lower end of left radius, initial encounter for closed fracture (principal); S52.202A Unspecified fracture of shaft of left ulna, initial encounter for closed fracture
CPT/HCPCS: 73110; 99204

== ENCOUNTER 2022-11-13 13:49 | Outpatient (AMB) | payer MEDICAID, SELFPAY ==
--- NOTE | 2022-11-13 13:58 | A.OFFVIS_ITS ---
Intake Vital Signs 11/13/22 14:08 Height 4 ft 11 in Weight 115 lb BMI 23.2 Intake Visit Reasons: fc- closed Left wrist fracture Intake Note: Rosalinda 57 yr old right hand dominant female presents today for a new patient evaluation for her left wrist injury. States about 3-4 weeks ago she fell down in her home 2x due to weakness in her legs. States she fell a 3rd time due to drowsy from her medication. States she was seen in ED, and they put her wrist back in place . States currently her hand and wrist hurt. Reports she at times has numbness and tingling. Also mentioned she is always itchy. All over her body. States she is pending a shingles vaccine. Allergies No Known Allergies Allergy (Verified 11/13/22 14:07) HPI fc- closed Left wrist fracture HPI Details 57-year-old right hand dominant female who presents in the office today, as a new patient, for an evaluation of left wrist pain. The patient reports 3-4 weeks ago she fell while at home 2 times due to weakness in her left lower extremity. She reports a 3rd fall due to drowsiness from her medication. She reports being seen in the ED where they ?put her wrist back in place?. She reports pain in the left wrist and hand. She claims to have intermittent numbness and tingling. Patient reports she falls a lot. Patient reports chronic itchiness over her entire body. Patient reports she is pending the shingles vaccine. 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) Elevated rheumatoid factor Hand paresthesia Hepatitis C Hepatomegaly History of abdominal paracentesis Hyperammonemia Microhematuria Pancytopenia Panic attacks Polysubstance abuse Thrombocytopenia Transaminitis Surgical History History of delivery History of esophagogastroduodenoscopy (EGD) (~02/2017) Family History Father Family history of high blood pressure Mother Alive and well Social History Household Members: Children Housing: Apartment Do you presently have visiting nurse or other home services: No Alcohol intake: unknown Patient Tobacco Use Status: Current everyday Tobacco user Tobacco use type: Cigarette Cigarettes Per Day: 3 Second Hand Smoke Exposure: No Advance Directives Date on File: 08/16/20 service: No Current occupational status: unemployed Review of Systems Const All systems reviewed & are unremarkable except as noted in HPI and below Physical Exam Vital Signs: BMI result Body Mass Index 23.2 Const General: cooperative and no acute distress Orientation/consciousness: patient oriented x3 Resp Effort & Inspection: normal respiratory effort and able to speak in complete sentences Cardio Peripheral pulses: Peripheral pulses 2+ throughout Skin General skin exam: no rashes or lesions noted Neuro General: patient oriented x3 Extrem Other: Left wrist: Numerable dinner fork deformity. Is able to perform wrist No ecchymosis, erythema, or edema. Able to perform wrist extension and slight flexion but is limited with flexion specifically. Able to perform full finger flexion, extension, abduction, adduction, finger cross, okay sign, and thumbs up without deficit. Able to make a closed fist. Sensation intact. Capillary refill is brisk. Radial pulse intact. Office Procedures Fracture Care Fracture Billing Code: Fracture Billing Code Assessment & Plan Assessment & Plan (1) Fracture of left distal radius: Code(s): S52.502A - Unspecified fracture of the lower end of left radius, initial encounter for closed fracture (2) Left ulnar fracture: Code(s): S52.202A - Unspecified fracture of shaft of left ulna, initial encounter for closed fracture Plan Ms Ashley is a 57-year-old right hand dominant female who presents in the office today, as a new patient, for an evaluation of left wrist pain. The patient reports 3-4 weeks ago she fell while at home 2 times due to weakness in her left lower extremity. She reports a 3rd fall due to drowsiness from her medication. She reports being seen in the ED where they ?put her wrist back in place?. She reports pain in the left wrist and hand. She claims to have intermittent numbness and tingling. Patient reports she falls a lot. Patient reports chronic itchiness over her entire body. Patient reports she is pending the shingles vaccine. I sent the x-rays to Dr. Sauceda through [employer] [facility] and spoke with her via telephone consult and a collaborative treatment plan was made. She will be placed in a thermal molded wrist splint, off the shelf, while in the office today. She was instructed to wear this as a cast. She may remove it only for hand washing and showering. Follow up will be in 3 weeks with repeat x-rays, or sooner if needed. X-rays of the left wrist which were obtained while in the office today and were reviewed by me, Joceline Santos PA-C, revealed left distal radius and ulna fracture with callous formation. Orders: Orders XR wrist LT min 3V 11/09/22 M25.539 - Pain in unspecified wrist XR wrist LT min 3V 11/13/22 M25.539 - Pain in unspecified wrist Patient Instructions: Scribed for Joceline Santos PA-C by Elisa Gaona medical assistant per diem, on 11/13/2022 at 1:51 pm, EST. Coding Level of Care Code New Pt Level 4 (48206) Diagnoses Fracture of left distal radius S52.502A Left ulnar fracture S52.202A CPT Codes Fracture Care - Fracture Billing Code: Fracture Billing Code ([id number])
[2022-11-13 14:08] VITALS: BMI 23.2
== END 2022-11-13 15:17 | disposition home or self-care (01) ==
PROVIDERS: PCP Family Medicine; Visit Provider Physician Assistant
DX: S52.502A Unspecified fracture of the lower end of left radius, initial encounter for closed fracture (principal); S52.202A Unspecified fracture of shaft of left ulna, initial encounter for closed fracture
CPT/HCPCS: 99204

== ENCOUNTER 2022-11-24 11:56 | Day surgery (SDC) | payer MEDICAID, SELFPAY ==
--- NOTE | ~2022-11-24 | US_ITS ---
EXAMINATION: Ultrasound-guided paracentesis CLINICAL INFORMATION: Ascites COMPARISON: Previous exams most recent 11/09/2022 TECHNIQUE: The right lower quadrant was prepped and draped in the usual sterile fashion. The skin and soft tissues were anesthetized with 1% lidocaine plain. Using ultrasound guidance and a 5 Bengali one stick system, access to the ascitic fluid was obtained. 1.9 L of clear yellow fluid was removed. No diagnostic specimen was sent. FINDINGS: There is a moderate amount of ascites. US/US paracentesis abd w/image IMPRESSION: Ultrasound-guided paracentesis.
[2022-11-24 12:40] VITALS: BP 173/81; PULSE 81; RESP 18; TEMP 37.1; O2SAT 96; BMI 22.6
[2022-11-24 13:26] LABS: MANUAL DIFF FLAG NO
[2022-11-24 14:23] LABS: INTERNATIONAL NORM RATIO 1.4 (0.9-1.1)
[2022-11-24 14:26] LABS: Partial Thromboplastin Time 33.4 SEC (26.0-36.4)
[2022-11-24 14:47] VITALS: BP 168/80; PULSE 85; RESP 16; TEMP 36.9; O2SAT 94
[2022-11-24 14:50] LABS: Basophils Percent Auto 0.2 % (0-2); Eosinophils Absolute Auto 0.1 X10*3/uL (0.0-0.4); Eosinophils Percent Auto 1.2 % (0-4); Hematocrit 26.3 % (37.0-47.0); Hemoglobin 8.4 g/dl (12.0-16.0); Imm Gran Abs Auto 0.02 X10*3/uL (0.00-0.03); Imm Gran Pct Auto 0.5 % (0.0-0.4); Lymphocytes Absolute Auto 0.5 X10*3/uL (1.2-4.9); Lymphocytes Percent Auto 13.1 % (20-40); Mean Corpuscular HGB Conc 31.9 g/dl (31.0-35.0); Mean Corpuscular Hemoglobin 27.3 pg (27.0-33.0); Mean Corpuscular Volume 85.4 fL (80.0-98.0); Mean Platelet Volume 10.1 fL (9.4-12.3); Monocytes Absolute Auto 0.5 X10*3/uL (0.1-1.2); Monocytes Percent Auto 11.9 % (2-11); Neutrophils Percent Auto 73.1 % (45-73); Red Blood Count 3.08 X10*6/uL (4.20-5.50); Red Cell Distribution Width 21.5 % (11.0-16.0); White Blood Count 4.1 X10*3/uL (4.8-10.8)
[2022-11-24 14:53] LABS: Platelet Count 77 X10*3/uL (160-400)
== END 2022-11-24 15:10 | disposition home or self-care (01) ==
PROVIDERS: PCP Family Medicine; Visit Provider Radiology Diagnostic Radiology
DX: K70.31 Alcoholic cirrhosis of liver with ascites (principal); B18.2 Chronic viral hepatitis C; F10.10 Alcohol abuse, uncomplicated; D61.818 Other pancytopenia; R16.1 Splenomegaly, not elsewhere classified; J44.9 Chronic obstructive pulmonary disease, unspecified; J96.01 Acute respiratory failure with hypoxia; Z79.51 Long term (current) use of inhaled steroids; Z79.899 Other long term (current) drug therapy
CPT/HCPCS: 36415; 49083; 85025; 85610; 85730

== ENCOUNTER → 2022-11-24 13:01 | Outpatient (BNV) | payer MEDICAID, SELFPAY | PROVIDERS: PCP Family Medicine; Visit Provider Radiology Diagnostic Radiology | DX: R18.8 Other ascites (principal) | CPT/HCPCS: 49083 ==

== ENCOUNTER 2022-12-05 11:24 | Outpatient (REF) | payer MEDICAID, SELFPAY | END 2022-12-05 11:25 | disposition home or self-care (01) | LOC: HO.HOSX 11:24 | PROVIDERS: Visit Provider Physician Assistant | DX: Z13.89 Encounter for screening for other disorder (principal) ==

== ENCOUNTER → 2022-12-15 14:22 | Day surgery (SDC) | payer MEDICAID, SELFPAY ==
[2022-12-15 07:04] VITALS: BMI 15.6
--- NOTE | 2022-12-15 13:54 | PC.NURSE ---
pt no show no number to call
--- NOTE | 2022-12-15 15:56 | PC.NURSE ---
Pt arrived at 1430 instead of [address] Paul from radiology and she is willing to perform the procedure if the patient has a ride home. Pt states that she was planning on walking home and that she has no one to call to pick her up. Dept medical center manager not available today and no nursing airfreight loading supervisor coverage available until 1630. Pt does not have an Uber/ [employer] account and states that there is no one who can come to the hospital and escort her home on public transportation. Pt states she will try to reschedule for next week at an earlier time of day when hospital van is available. Pt verbalizes understanding that if she begins to feel ill she should report to the ED for evaluation. Dr Paul and radiology dept notified that the patient has decided to reschedule.
== END ==
PROVIDERS: PCP Family Medicine; Visit Provider Radiology Diagnostic Radiology
DX: R18.8 Other ascites (principal); Z53.29 Procedure and treatment not carried out because of patient's decision for other reasons

== ENCOUNTER 2022-12-21 09:34 | Day surgery (SDC) | payer MEDICAID, SELFPAY ==
[2022-12-21 10:36] LABS: MANUAL DIFF FLAG NO
[2022-12-21 10:38] LABS: Basophils Percent Auto 0.1 % (0-2); Eosinophils Absolute Auto 0.1 X10*3/uL (0.0-0.4); Eosinophils Percent Auto 0.6 % (0-4); Hematocrit 30.3 % (37.0-47.0); Hemoglobin 9.7 g/dl (12.0-16.0); Imm Gran Abs Auto 0.06 X10*3/uL (0.00-0.03); Imm Gran Pct Auto 0.6 % (0.0-0.4); Lymphocytes Absolute Auto 0.8 X10*3/uL (1.2-4.9); Lymphocytes Percent Auto 7.5 % (20-40); Mean Corpuscular Volume 87.6 fL (80.0-98.0); Mean Platelet Volume 9.3 fL (9.4-12.3); Monocytes Absolute Auto 0.9 X10*3/uL (0.1-1.2); Monocytes Percent Auto 9.1 % (2-11); Neutrophils Absolute Auto 8.2 x10*3/uL (2.0-8.3); Neutrophils Percent Auto 82.1 % (45-73); Platelet Count 102 X10*3/uL (160-400); Red Blood Count 3.46 X10*6/uL (4.20-5.50); Red Cell Distribution Width 17.2 % (11.0-16.0)
[2022-12-21 10:44] VITALS: BMI 22.6
[2022-12-21 10:50] LABS: INTERNATIONAL NORM RATIO 1.4 (0.9-1.1); Prothrombin Time 17.4 SEC (11.1-13.3)
--- NOTE | 2022-12-21 10:51 | PC.NURSE ---
patient O2 84-88% on RA. Lungs wheezing throughout, patient has productive cough with white sputum. call placed to Dr. Paniagua radiologist, verbal order received for [employer] neb treatment and given. patient reported wheres 3L NC at home all the time.
[2022-12-21 10:53] LABS: Partial Thromboplastin Time 31.2 SEC (26.0-36.4)
[2022-12-21 12:45] VITALS: BP 163/79; PULSE 87; RESP 20; TEMP 36.6; O2SAT 94
== END 2022-12-21 13:08 | disposition home or self-care (01) ==
PROVIDERS: Radiology Diagnostic Radiology; Radiology Vascular & Interventional Radiology; PCP Family Medicine; Visit Provider Internal Medicine Gastroenterology
DX: R18.8 Other ascites (principal); K74.60 Unspecified cirrhosis of liver
CPT/HCPCS: 36415; 49083; 85025; 85610; 85730

== ENCOUNTER → 2022-12-21 10:59 | Outpatient (BNV) | payer MEDICAID, SELFPAY | PROVIDERS: PCP Family Medicine; Visit Provider Radiology Vascular & Interventional Radiology | DX: R18.8 Other ascites (principal) | CPT/HCPCS: 49083 ==

== ENCOUNTER 2023-01-12 11:53 | Day surgery (SDC) | payer MEDICAID, SELFPAY ==
--- NOTE | ~2023-01-12 | US_ITS ---
EXAMINATION: US GUIDED PARACENTESIS CLINICAL INFORMATION: Ascites COMPARISON: Previous exams most recent 12/21/2022 TECHNIQUE: Procedure and risks and benefits including bleeding, infection and low blood pressure were discussed with the patient and informed consent was obtained. The right lower quadrant was prepped and draped in the usual sterile fashion. The skin and soft tissues were anesthetized with 1% lidocaine plain. Using ultrasound guidance and a 5 Norwegian one stick system, access to the ascitic fluid was obtained. 6.8 L of clear yellow fluid was removed. No diagnostic specimen was sent. FINDINGS: There is a large amount of ascites. US/US paracentesis abd w/image IMPRESSION: Ultrasound-guided paracentesis.
[2023-01-12 12:16] VITALS: BP 137/78; PULSE 99; RESP 20; TEMP 36.7; O2SAT 95; BMI 24.2
[2023-01-12 14:15] VITALS: BP 141/74; PULSE 108; RESP 16; TEMP 37.1; O2SAT 93
[2023-01-12] MEDS: Lidocaine HCl 1 % MPF 5 ML VIAL SUBCUT (14:19)
[2023-01-12 14:30] VITALS: BP 141/78; PULSE 107; RESP 16; O2SAT 93
[2023-01-12 14:45] VITALS: BP 156/82; PULSE 102; RESP 18; O2SAT 95
[2023-01-12 15:00] VITALS: BP 155/84; PULSE 108; RESP 18; O2SAT 95
[2023-01-12 15:15] VITALS: BP 156/84; PULSE 102; RESP 18; TEMP 37.1; O2SAT 96
== END 2023-01-12 15:25 | disposition home or self-care (01) ==
LOC: HO.SSS 11:56
PROVIDERS: PCP Family Medicine; Visit Provider Radiology Diagnostic Radiology
DX: R18.8 Other ascites (principal); K74.60 Unspecified cirrhosis of liver
CPT/HCPCS: 49083

== ENCOUNTER → 2023-01-12 12:28 | Outpatient (BNV) | payer MEDICAID, SELFPAY | PROVIDERS: PCP Family Medicine; Visit Provider Radiology Diagnostic Radiology | DX: R18.8 Other ascites (principal) | CPT/HCPCS: 49083 ==

== ENCOUNTER 2023-01-26 11:55 | Day surgery (SDC) | payer MEDICAID, SELFPAY ==
--- NOTE | ~2023-01-26 | US_ITS ---
ULTRASOUND GUIDED PARACENTESIS HISTORY: Ascites. Risks and benefits and possible complications were discussed with the patient and consent form was signed. A safe pocket of ascitic fluid was identified using ultrasound guidance, and the overlying skin was marked. The abdomen prepped and draped in sterile fashion. 1% lidocaine was used as a local anesthetic. Using ultrasound guidance, a 5 fr catheter was placed into the ascitic pocket. 7.4 liters of yellow fluid was removed passively. The catheter was then removed. A few outbound telemarketing representative images from before and after the examination were obtained. The procedure was performed by Kevin Early PA-C and supervised by Dr. Matamoros. US/US paracentesis abd w/image IMPRESSION: Ultrasound-guided paracentesis as described above. No immediate complications
[2023-01-26 12:32] LABS: MANUAL DIFF FLAG NO
[2023-01-26 12:39] LABS: INTERNATIONAL NORM RATIO 1.2 (0.9-1.1); Prothrombin Time 14.9 SEC (11.1-13.3)
[2023-01-26 12:41] LABS: Basophils Percent Auto 0.4 % (0-2); Eosinophils Absolute Auto 0.1 X10*3/uL (0.0-0.4); Eosinophils Percent Auto 1.3 % (0-4); Hematocrit 29.8 % (37.0-47.0); Hemoglobin 9.4 g/dl (12.0-16.0); Imm Gran Abs Auto 0.03 X10*3/uL (0.00-0.03); Imm Gran Pct Auto 0.7 % (0.0-0.4); Lymphocytes Absolute Auto 0.6 X10*3/uL (1.2-4.9); Lymphocytes Percent Auto 13.7 % (20-40); Mean Corpuscular HGB Conc 31.5 g/dl (31.0-35.0); Mean Corpuscular Hemoglobin 26.6 pg (27.0-33.0); Mean Corpuscular Volume 84.2 fL (80.0-98.0); Mean Platelet Volume 10.2 fL (9.4-12.3); Monocytes Absolute Auto 0.6 X10*3/uL (0.1-1.2); Monocytes Percent Auto 12.2 % (2-11); Neutrophils Absolute Auto 3.3 x10*3/uL (2.0-8.3); Neutrophils Percent Auto 71.7 % (45-73); Red Blood Count 3.54 X10*6/uL (4.20-5.50); Red Cell Distribution Width 17.2 % (11.0-16.0); White Blood Count 4.6 X10*3/uL (4.8-10.8)
[2023-01-26 12:42] LABS: Platelet Count 61 X10*3/uL (160-400)
[2023-01-26 14:10] VITALS: BP 147/62; PULSE 86; RESP 20; TEMP 37.3; O2SAT 97
[2023-01-26 14:20] VITALS: BP 145/76; PULSE 95; RESP 20; O2SAT 92
[2023-01-26 14:38] VITALS: BP 150/82; PULSE 93; RESP 20; TEMP 36.9; O2SAT 98
[2023-01-26] MEDS: Albumin Human 25 % 100 ML IV (14:39)
[2023-01-26] MEDS: Lidocaine HCl 1 % MPF 5 ML VIAL SUBCUT (14:47)
== END 2023-01-26 15:01 | disposition home or self-care (01) ==
PROVIDERS: PCP Family Medicine; Visit Provider Physician Assistant Surgical
DX: R18.8 Other ascites (principal); K74.60 Unspecified cirrhosis of liver; B18.2 Chronic viral hepatitis C; F10.10 Alcohol abuse, uncomplicated
CPT/HCPCS: 36415; 49083; 85025; 85610; 85730; P9047

== ENCOUNTER → 2023-01-26 12:15 | Outpatient (BNV) | payer MEDICAID, SELFPAY | PROVIDERS: PCP Family Medicine; Visit Provider Radiology Diagnostic Radiology | DX: R18.8 Other ascites (principal) | CPT/HCPCS: 49083 ==

== ENCOUNTER 2023-02-01 09:00 | Outpatient (AMB) | payer MEDICAID, SELFPAY ==
--- NOTE | 2023-02-01 09:06 | A.OFFVIS_ITS ---
Intake Vital Signs 02/01/23 09:12 Height 4 ft 11 in Weight 105 lb BMI 21.2 BP 159/70 H Blood Pressure Location Lt brachial Position Sitting Pulse 90 Intake Visit Reasons: cirrhosis Intake Note: Patient follow up for Cirrhosis. Patient cc: no issues just abdominal ascites. 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 Accompanied by: Self / Same As Patient Allergies No Known Allergies Allergy (Verified 03/02/23 11:14) Medication List - Last Reconciled 02/01/23 by Francis Rivera MD baclofen 10 mg PO BEDTIME PRN buprenorphine-naloxone 8-2 mg (Suboxone) 1 film buccal DAILY docusate sodium (DOK) 100 mg PO DAILY fluticasone propionate 220 mcg/actuation (Flovent HFA) 1 puff inhalation BID fluticasone propionate 50 mcg/actuation 2 sprays intranasal DAILY PRN folic acid 1 tab PO QAM furosemide 40 mg PO BID@0900,1200 ipratropium-albuterol 20-100 mcg/actuation (Combivent Respimat) 1 puff inhalation QID PRN lactulose 20 grams (30 mL) PO BID multivitamin 1 tab PO DAILY omeprazole 20 mg PO BID oxybutynin chloride ER 1 tab PO QAM rifaximin (Xifaxan) 550 mg PO BID 30 days sertraline 150 mg PO DAILY@1200 spironolactone 100 mg PO DAILY thiamine HCl (vitamin B1) 1 tab PO QAM trazodone 100 mg PO BEDTIME HPI cirrhosis HPI Details GI clinic visit for this 57 YF for FU of hepatic cirrhosis due to chronic Hep C and active ETOH use, complicated by pancytopenia, splenomegaly, ascites, hepatic encephalopathy. Pt was hospitalized at [facility] in July 2020 with abdominal distension, lower extremity edema and hepatic encephalopathy. Patient returns for follow-up after a hiatus of 7 months. Ascites has been treated with therapeutic paracentesis every 2-3 weeks Pt was hospitalized at [facility] in September, with confusion and hypoxia. ?IMAGING STUDIES: 02/[address] SCAN SHOWED: 1.? Cirrhotic liver with splenomegaly an d portal venous hypertension. There is a large amount of ascites. There is recanalization of umbilical vein. ? 2. Ill-defined opacity in the superior s egment of spleen. 3. Gallstones without wall thickening. S imilar findings were seen on the previous CT abdomen and pelvis exam 01/11/2022. 08/15/19 Abd US showed: ? Echogenic liver with slightly nodular border suggesting cirrhosis. ? Cholelithiasis with focal gallbladder wall thickening which has ? appeared similar on prior studies. Negative Simpson sign. Splenomegaly again seen. ?03/[address] scan showed: ? IMPRESSION: ? 1. There is a cirrhotic appearance of the liver. No focal hepatic mass or intrahepatic biliary dilatation is seen. ? 2. There is very mild abdominopelvic ascites. ? 3. There is mild splenomegaly. ? 4. There is cholelithiasis, without cholecystitis or choledocholithiasis. ?ENDOSCOPIC STUDIES: 02/2017 EGD WAS PERFOR[address]. ZEPDEA AND SHOWED SUPERFICIAL GASTRITIS IN 0 TO 1+ ESOPHAGEAL VARICES. TODAY'S VISIT Has a cough which she attributes to asthma. Complains of abdominal distension and denies abd pain, black stools or rectal bleeding. Has 2 dogs and a cat - they dont let me sleep Has to get up at night to urinate Drinking 1.5 beers daily. Scheduled for paracentesis on 02/12/23 Taking lactulose twice a week due to diarrhea. Has a BM 1-3 times daily. PAST VISITS: Pt had LVP on 06/20/22 and 5 litres of fluid was removed and notes recurrent abd distension. Abdomen is getting full faster. Notes intermittent chills and denies fever. Notes distension 3-4 days after paracentesis Notes ankle edema Drinking almost the same - goes to bed earlier so she does not drink. Patient abdominal firmness/discomfort- Ascites ? Patient cc: N/V on and off, abdominal bloating, acid reflexand diarrhea come and go. Denies any other GI issues. I have been lazy, I dont sleep much and hard for me to come for an appt in the morning. Notes worsening abdominal distension. Has urge incontinence with accidents - unable to make it to the toilet. Now has a bucket in her room to urinate. Denies ankle edema Appetite is not good. Denies heartburn, dysphagia, black stools. Had diarhea a week ago. Lives with her son. She has 2 dogs at home she takes care of and unable to leave them fro long periods of time since 1 of the dogs has seizures PAST VISIT: Feeling better since her hospitalization. I hardly sleep at night Sleeps 20-30 min and then wakes up. Has cut back to drinking two beers a day. Complains of diarrhea with 2-3 BMs a day ? Had two iron infusions and has 6 more to schedule. ? Unable to schedule the infusions due to transportation issues. ? Notes intermittent abdominal distension. ? Noted leg swelling a few weeks ago. ? Has a of bruising from falling. ? Denies black stools. ? Appetite is good and weight fluctuates ? ? ? sometimes they say I am fat, and sometimes they say I am skinny ? Trying very hard to cut back on drinking - drinking 2 of 24 ounces of beer daily. ? Sometimes starts drinking in the morning. ? Notes non-tender red spots over her lower legs. ? Doing not good and not bad ? Denies abdominal pain. ? Does'nt go out much. ? Uses masks and gloves when she goes out. ? Being followed in GI clinic since 2016 for cirrhosis related to chronic hep C and active ETOH use. ? Drinking 3 big beers a day - trying to cut back (2.5 to 3 24 ounces of beer). ? Denies drinking any hard liqour. ? Denies abdominal pain, abdominal remains distended and soft. ? Has difficulty sleeping. ? Taking lactulose once a day and had 3 loose stools today. ? Appetite is not too good. ? Patient denies black stools or rectal bleeding ? Taking spironolactone 50 mg and Lasix 40 mg 2 tablets - daily. ? Last peritoneal tap was a year ago. ? Drinking 2.5 to 3 24 ounces of beer. ? Stopped drinking for 8 months more than a year ago after her hospitalizat ion and then started drinking again. ? Trying to cut back on drinking on her own [facility] Medical History Alcohol abuse with withdrawal Transaminitis Coagulopathy Acute respiratory failure with hypoxia COPD (chronic obstructive pulmonary disease) Hyperammonemia Thrombocytopenia Alcoholic cirrhosis of liver with ascites Pancytopenia Alcohol abuse Panic attacks 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) Hepatomegaly Microhematuria Polysubstance abuse Hand paresthesia COPD (chronic obstructive pulmonary disease) Anxiety Elevated rheumatoid factor Hepatitis C Surgical History History of abdominal paracentesis History of esophagogastroduodenoscopy (EGD) (~02/2017) History of delivery Family History Father Family history of high blood pressure Mother Alive and well Social History Household Members: Children Housing: Apartment Do you presently have visiting nurse or other home services: No Alcohol intake: unknown Patient Tobacco Use Status: Current everyday Tobacco user Tobacco use type: Cigarette Cigarettes Per Day: 2 Second Hand Smoke Exposure: No Are you DNR?: No Advance Directives: No Advance Directives Information Provided: Yes Advance Directives Date on File: 08/16/20 service: No Current occupational status: unemployed Review of Systems Const All systems reviewed & are unremarkable except as noted in HPI and below Physical Exam Vital Signs: Last Vital Signs Pulse 90 02/01/23 09:12 BP 159/70 H 02/01/23 09:12 BMI result Body Mass Index 21.2 Const General: no acute distress and ill appearing (Chronically ill-appearing) Nutritional Appearance: average body habitus Orientation/consciousness: patient oriented x3 Limitations: no limitations and language barrier HEENT Head: Yes normal to inspection Ears: hearing grossly normal bilaterally Eyes Sclerae: sclerae normal Pupils: Equal, round and reactive pupils present Neck Neck: Yes normal visual inspection Chest Chest palpation & inspection: normal inspection of the chest Resp Effort & Inspection: normal respiratory effort Auscultation: clear to auscultation bilaterally Cardio Palpation: normal PMI Rate: regular rate Rhythm: regular rhythm Heart sounds: S1 normal heart sound present, S2 normal heart sound present and no murmurs GI Inspection: Yes distended (Due to ascites) Palpation (GI): Soft to palpation, nontender and No hepatosplenomegaly present Auscultation: normal bowel sounds Rectal Exam - Female: deferred Skin General skin exam: no rashes or lesions noted Neuro General: patient oriented x3, gait normal and moves all extremities Cranial nerves: Yes Equal, round and reactive pupils present Psych Appearance: grossly normal Mental Status: mental status grossly normal Assessment & Plan Assessment & Plan (1) Iron deficiency anemia: Code(s): D50.9 - Iron deficiency anemia, unspecified (2) Hepatic encephalopathy: Code(s): K72.90 - Hepatic failure, unspecified without coma (3) Hepatitis C: Code(s): B19.20 - Unspecified viral hepatitis C without hepatic coma (4) Alcoholic cirrhosis of liver with ascites: Code(s): K70.31 - Alcoholic cirrhosis of liver with ascites Plan 57 YF with HEP C, COPD, elevated rheumatoid factor, diffuse chronic pain, hypertension, depression, anxiety, bilateral hand paresthesias, polysubstance abuse, etoh abuse, microhematuria Hepatosplenomegaly, Abnormal gallbladder ultrasound, decompensated cirrhosis. Patient seen for follow-up of decompensated cirrhosis due to chronic hepatitis C and ongoing alcohol use. Cirrhosis is complicated by portal hypertension with splenomegaly and thrombocytopenia and hepatic encephalopathy. Meld Na score is 11. Endoscopy in 2017 showed early esophageal varices. Course in prognosis of cirrhosis was discussed with the patient at a previous visit.? Patient was advised to abstain from ETOH use. She indicated that she has cut back on her drinking and is reluctant to go for inpatient treatment at present. She was advised to continue spironolactone 100 mg a day and furosemide at 80 mg daily for management of ascites and lower extremity edema. Patient was advised to have repeat labs and schedule an urgent abd ultrasound for HCC surveillance Pt was scheduled for an EGD to screen for esophageal varices - procedure was cancelled multiple times by anesthesia since pt took ETOH prior to coming in for the procedure? - Pt has chronic Hep C Genotype 1 a with viral load of 4.65 in 03/05. Treatment for hepatitis C can be started after she stops drinking ETOH since compliance with medication is questionable while she is drinking actively. Of note patient has been non compliant with GI follow-up appointments over the past year. 06/30/22 Pt has noted recurrent abdominal distension requiring multiple large volume paracentesis - last on 06/20/22. Pt is requesting to schedule repeat LVP - scheduled on 07/04/22. Order placed for weekly paracentesis for the next 4 weeks She will be scheduled for an Abd US with duplex to rule out PVT. 02/01/23 Complains of abdominal distension and denies abd pain, black stools or rectal bleeding. Drinking 1.5 beers daily. Taking lactulose twice a week due to diarrhea. Has a BM 1-3 times daily. Pt advised to take Ensure 500 ml 1 can twice daily since she has a low albumin and is loosing weight Referral to [facility] Pt requested that her son, Weston be contacted for appointments at [phone] Pt gave permission to discuss her medical condition with her son. FU in 8 weeks ADDENDUM 03/17/23 Pt called with recurrent abdominal distension. She is scheduled for a therapeutic paracentesis on 03/29/23 Orders: Orders Comprehensive Met. Panel 02/01/23 K70.31 - Alcoholic cirrhosis of liver with ascites US abdomen complete 02/01/23 K70.31 - Alcoholic cirrhosis of liver with ascites Medications: New calcium carbonate-vitamin D3 1,000 mg-20 mcg (800 unit) 1 tab PO .Once a day 90 tabs 1RF 90 days cholecalciferol (vitamin D3) 50 mcg PO DAILY 90 caps 1RF 90 days Coding Level of Care Code Est Pt Level 4 (10305) Diagnoses Iron deficiency anemia D50.9 Hepatic encephalopathy K72.90 Hepatitis C B19.20 Alcoholic cirrhosis of liver with ascites K70.31 Time Spent (min) 27
[2023-02-01 09:12] VITALS: BP 159/70; PULSE 90; BMI 21.2
== END 2023-02-01 11:26 | disposition home or self-care (01) ==
PROVIDERS: PCP Family Medicine; Referring Provider Family Medicine; Visit Provider Internal Medicine Gastroenterology
DX: D50.9 Iron deficiency anemia, unspecified (principal); K72.90 Hepatic failure, unspecified without coma; B19.20 Unspecified viral hepatitis C without hepatic coma; K70.31 Alcoholic cirrhosis of liver with ascites
CPT/HCPCS: 99214

== ENCOUNTER → 2023-02-01 09:00 | Outpatient (BNVA) | payer MEDICAID, SELFPAY | PROVIDERS: PCP Family Medicine; Visit Provider Internal Medicine Gastroenterology | DX: K70.31 Alcoholic cirrhosis of liver with ascites (principal); B19.20 Unspecified viral hepatitis C without hepatic coma; K72.90 Hepatic failure, unspecified without coma; D50.9 Iron deficiency anemia, unspecified; F10.139 Alcohol abuse with withdrawal, unspecified | CPT/HCPCS: 99212 ==

== ENCOUNTER 2023-02-12 10:40 | Day surgery (SDC) | payer MEDICAID, SELFPAY ==
--- NOTE | ~2023-02-12 | US_ITS ---
Ultrasound paracentesis History: Ascites. Risks and benefits and possible complications were discussed with the patient and consent form was signed. A safe pocket of ascitic fluid was identified using ultrasound guidance, and the overlying skin was marked. The abdomen prepped and draped in sterile fashion. 1% lidocaine was used as a local anesthetic. Using ultrasound guidance, a 5 fr catheter was placed into the ascitic pocket. 4.6 liters of yellow fluid was removed passively. The catheter was then removed. A few distribution sales representative images from before and after the examination were obtained. The procedure was performed by Kevin Early PA-C and supervised by Dr. Jhaveri. US/US paracentesis abd w/image Impression: Ultrasound-guided paracentesis as described above. No immediate complications
--- NOTE | ~2023-02-12 | US_ITS ---
EXAMINATION: COMPLETE DUPLEX ULTRASOUND OF THE ABDOMEN CLINICAL INDICATION: Alcoholic cirrhosis with ascites. COMPARISON: None available. TECHNIQUE: Real-time abdominal ultrasound performed. Duplex Doppler ultrasound and pulse wave Doppler with spectral analysis were also performed. PANCREAS: Within the body of the pancreas, a 0.8 x 0.8 x 0.9 cm simple cyst is seen. No solid mass is seen. There is no enlargement, ductal dilatation or peripancreatic acute fluid collection. ABDOMINAL AORTA: The proximal, mid, and distal segments are normal in caliber. INFERIOR VENA CAVA: Visualized portions are normal. LIVER: The liver is normal in size. The liver contour is lobulated. Parenchymal echogenicity is increased. No focal hepatic lesion. There is no intrahepatic biliary duct dilatation seen. GALLBLADDER: There are layering, shadowing gallstones. The gallbladder is physiologically distended, without evidence of sludge, polyps, wall thickening or pericholecystic fluid. COMMON BILE DUCT: Increased in caliber, measuring 1.2 cm in diameter. RIGHT KIDNEY: There is increased renal cortical echotexture. No hydronephrosis. No renal calculi or focal parenchymal lesions. The kidney measures 10.3 cm in maximum dimension. LEFT KIDNEY: There is increased renal cortical echotexture. No hydronephrosis. No renal calculi or focal parenchymal lesions. The kidney measures 10.9 cm in maximum dimension. SPLEEN: Normal. The spleen measures 16.6 cm in maximum dimension. FREE FLUID: There is trace ascites. VASCULAR: The main portal vein demonstrates hepatofugal flow, with partial thrombosis. The right and left portal veins are occluded. The right and left hepatic veins demonstrates hepatofugal flow, with dampening. The left portal vein is not identified. The splenic vein demonstrates normal directional flow. The hepatic artery demonstrates normal arterial waveforms. US/US duplex arterial venous comp IMPRESSION: 1. There is portal vein thrombosis, as detailed. 2. The liver has a cirrhotic appearance. No focal hepatic mass or intrahepatic biliary ductal dilatation is seen. 3. There is cholelithiasis. The common bile duct is increased in caliber to 1.2 cm, without focal choledocholith seen. If of continued clinical concern, this can be further evaluated with abdominal MRI/MRCP or nuclear HIDA scan. 4. A 9 mm anechoic, simple cyst is seen within the pancreatic body. This may represent an acquired cyst, a pseudocyst or a cystic neoplasm such as an IPMN. Recommend repeat ultrasound or cross-sectional imaging at a one-year interval to ensure stability. 5. There is increased renal cortical echotexture, which can be associated with medical renal disease. 6. There is splenomegaly. 7. There is trace ascites.
[2023-02-12 11:02] VITALS: BMI 22.2
[2023-02-12] MEDS: Lidocaine HCl 1 % MPF 5 ML VIAL SUBCUT (13:27)
[2023-02-12 14:45] VITALS: BP 169/89; PULSE 97; RESP 16; TEMP 36.5; O2SAT 97
[2023-02-12 15:00] VITALS: BP 158/85; PULSE 91; RESP 14; TEMP 36.5; O2SAT 98
--- NOTE | 2023-02-12 15:29 | PC.NURSE ---
[facility] unable to drive patient home. Radiology working on lyft for patient
== END 2023-02-12 15:33 | disposition home or self-care (01) ==
PROVIDERS: PCP Family Medicine; Visit Provider Student in an Organized Health Care Education/Training Program
DX: K70.31 Alcoholic cirrhosis of liver with ascites (principal); F10.10 Alcohol abuse, uncomplicated; J44.9 Chronic obstructive pulmonary disease, unspecified; K86.2 Cyst of pancreas; K80.20 Calculus of gallbladder without cholecystitis without obstruction; I81 Portal vein thrombosis; R16.1 Splenomegaly, not elsewhere classified
CPT/HCPCS: 49083; 76700; 93975; P9047

== ENCOUNTER → 2023-02-12 12:28 | Outpatient (BNV) | payer MEDICAID, SELFPAY | PROVIDERS: PCP Family Medicine; Visit Provider Student in an Organized Health Care Education/Training Program | DX: R18.8 Other ascites (principal) | CPT/HCPCS: 49083 ==

== ENCOUNTER 2023-03-02 10:37 | Day surgery (SDC) | payer MEDICAID, SELFPAY ==
--- NOTE | ~2023-03-02 | US_ITS ---
Ultrasound paracentesis History: Ascites. Risks and benefits and possible complications were discussed with the patient and consent form was signed. A safe pocket of ascitic fluid was identified using ultrasound guidance, and the overlying skin was marked. The abdomen prepped and draped in sterile fashion. 1% lidocaine was used as a local anesthetic. Using ultrasound guidance, a 5 fr catheter was placed into the ascitic pocket. 5.3 liters of yellow fluid was removed passively. The catheter was then removed. A few healthcare sales representative images from before and after the examination were obtained. The procedure was performed by Kevin Early PA-C and supervised by Dr. Jhaveri. US/US paracentesis abd w/image Impression: Ultrasound-guided paracentesis as described above. No immediate complications
[2023-03-02 11:14] VITALS: BMI 22.9
[2023-03-02] MEDS: Lidocaine HCl 1 % MPF 5 ML VIAL SUBCUT (12:41)
[2023-03-02 12:47] VITALS: BP 130/76; PULSE 88; RESP 18; TEMP 36.2; O2SAT 93
[2023-03-02 13:02] VITALS: BP 158/80; PULSE 80; RESP 18; O2SAT 97
[2023-03-02 13:17] VITALS: BP 156/81; PULSE 87; RESP 18; TEMP 36.4; O2SAT 98
== END 2023-03-02 13:40 | disposition home or self-care (01) ==
PROVIDERS: Physician Assistant Surgical; PCP Family Medicine; Visit Provider Internal Medicine Gastroenterology
DX: K70.31 Alcoholic cirrhosis of liver with ascites (principal); F10.10 Alcohol abuse, uncomplicated; B19.20 Unspecified viral hepatitis C without hepatic coma; I10 Essential (primary) hypertension; D50.9 Iron deficiency anemia, unspecified; F19.10 Other psychoactive substance abuse, uncomplicated; J44.9 Chronic obstructive pulmonary disease, unspecified; F17.210 Nicotine dependence, cigarettes, uncomplicated
CPT/HCPCS: 49083; P9047

== ENCOUNTER → 2023-03-02 11:47 | Outpatient (BNV) | payer MEDICAID, SELFPAY | PROVIDERS: PCP Family Medicine; Visit Provider Student in an Organized Health Care Education/Training Program | DX: R18.8 Other ascites (principal) | CPT/HCPCS: 49083 ==

== ENCOUNTER 2023-03-15 10:46 | Day surgery (SDC) | payer MEDICAID, SELFPAY ==
--- NOTE | ~2023-03-15 | US_ITS ---
History: Ascites Procedure performed: Ultrasound-guided paracentesis [employer] Head Teacher: Britney Paniagua MD FSIR Anesthesia: 8 mL 1% lidocaine Specimen: 3.5 L of clear yellow fluid Drain: 5 Hebrew Yueh needle catheter Estimated blood loss: Minimal Consultations: None Procedure in detail: Informed and written consent. Ultrasound revealed diffuse ascites with the largest pocket in the right lower quadrant. The overlying skin was prepped and draped. Under ultrasound, 1% lidocaine was injected subcutaneously and extended to the peritoneum. A small incision was made in the skin with a #11 blade. Through the incision and under ultrasound guidance with permanent recordings and direct visualization of needle entry into the peritoneum, a Yueh needle catheter was advanced into the peritoneum. The needle was removed and the catheter was connected to suction yielding 3.5 L of clear yellow fluid. A sterile dressing was applied after removing the catheter. The patient tolerated the procedure well. Summary: Successful ultrasound-guided paracentesis.
[2023-03-15 11:27] VITALS: BMI 21.9
[2023-03-15 11:29] VITALS: BP 156/86; PULSE 90; RESP 18; TEMP 36.7; O2SAT 95
[2023-03-15 13:35] VITALS: BP 149/85; PULSE 93; RESP 16; TEMP 36.6
[2023-03-15] MEDS: Lidocaine HCl 1 % MPF 5 ML VIAL SUBCUT (13:39)
[2023-03-15 13:50] VITALS: BP 154/77; PULSE 90; RESP 14; O2SAT 97
[2023-03-15 14:05] VITALS: BP 151/83; PULSE 89; RESP 16; O2SAT 98
[2023-03-15 14:20] VITALS: BP 151/82; PULSE 88; RESP 14; TEMP 36.4; O2SAT 98
== END 2023-03-15 14:30 | disposition home or self-care (01) ==
PROVIDERS: PCP Family Medicine; Visit Provider Physician Assistant Surgical
DX: R18.8 Other ascites (principal); K73.9 Chronic hepatitis, unspecified; K72.90 Hepatic failure, unspecified without coma; D50.9 Iron deficiency anemia, unspecified; Z79.899 Other long term (current) drug therapy
CPT/HCPCS: 49083

== ENCOUNTER → 2023-03-15 12:21 | Outpatient (BNV) | payer MEDICAID, SELFPAY | PROVIDERS: PCP Family Medicine; Visit Provider Radiology Vascular & Interventional Radiology | DX: R18.8 Other ascites (principal); K70.31 Alcoholic cirrhosis of liver with ascites | CPT/HCPCS: 49083 ==

== ENCOUNTER 2023-03-29 10:41 | Day surgery (SDC) | payer MEDICAID, SELFPAY ==
--- NOTE | ~2023-03-29 | US_ITS ---
ULTRASOUND GUIDED PARACENTESIS HISTORY: Ascites. Risks and benefits and possible complications were discussed with the patient and consent form was signed. A safe pocket of ascitic fluid was identified right lower quadrant using ultrasound guidance, and the overlying skin was marked. The abdomen prepped and draped in sterile fashion. 1% lidocaine was used as a local anesthetic. Using ultrasound guidance, a 5 fr catheter was placed into the ascitic pocket. 4.7 liters of yellow fluid was removed passively. The catheter was then removed. A few food service representative images from before and after the examination were obtained. The procedure was performed by Kevin Early PA-C and supervised by Dr. Matamoros. US/US paracentesis abd w/image IMPRESSION: Ultrasound-guided paracentesis as described above. No immediate complications
[2023-03-29 10:56] VITALS: BMI 23.5
[2023-03-29 11:20] VITALS: BP 148/79; PULSE 88; RESP 18; TEMP 36.9; O2SAT 96
--- NOTE | 2023-03-29 12:45 | PC.NURSE ---
Kevin Early aware that patient's cough has worsened in last two weeks - sounds like a very strong smokers cough with clear sputum. also aware that patient has slight crackles in bilateral bases. no other symptoms. also aware that patient stated she drank alcohol (beer) at 3 or 4 a.m. and then stated that it was midnight/1 a.m. Okay to proceed per Kevin COLE
[2023-03-29 13:32] VITALS: BP 154/81; PULSE 96; RESP 16; TEMP 37.4; O2SAT 95
[2023-03-29] MEDS: Lidocaine HCl 1 % MPF 5 ML VIAL SUBCUT (13:34)
[2023-03-29 13:47] VITALS: BP 147/88; PULSE 103; RESP 16; TEMP 36.6; O2SAT 95
== END 2023-03-29 13:57 | disposition home or self-care (01) ==
LOC: HO.SSS 10:42
PROVIDERS: PCP Family Medicine; Visit Provider Physician Assistant Surgical
DX: R18.8 Other ascites (principal); K72.90 Hepatic failure, unspecified without coma; B19.20 Unspecified viral hepatitis C without hepatic coma; D50.9 Iron deficiency anemia, unspecified; J44.9 Chronic obstructive pulmonary disease, unspecified; D61.818 Other pancytopenia; M05.79 Rheumatoid arthritis with rheumatoid factor of multiple sites without organ or systems involvement; F41.9 Anxiety disorder, unspecified; Z79.51 Long term (current) use of inhaled steroids; Z79.899 Other long term (current) drug therapy; F19.10 Other psychoactive substance abuse, uncomplicated; F10.139 Alcohol abuse with withdrawal, unspecified; F17.210 Nicotine dependence, cigarettes, uncomplicated
CPT/HCPCS: 49083

== ENCOUNTER → 2023-03-29 12:45 | Outpatient (BNV) | payer MEDICAID, SELFPAY | PROVIDERS: PCP Family Medicine; Visit Provider Radiology Diagnostic Radiology | DX: R18.8 Other ascites (principal) | CPT/HCPCS: 49083 ==

== ENCOUNTER 2023-04-12 10:46 | Day surgery (SDC) | payer MEDICAID, SELFPAY ==
--- NOTE | ~2023-04-12 | US_ITS ---
ULTRASOUND GUIDED PARACENTESIS HISTORY: Ascites. Risks and benefits and possible complications were discussed with the patient and consent form was signed. A safe pocket of ascitic fluid was identified right lower quadrant using ultrasound guidance, and the overlying skin was marked, prepped and draped in sterile fashion. 1% lidocaine was used as a local anesthetic. Using ultrasound guidance, a 5 fr catheter was placed into the ascitic pocket. 5.2 liters of yellow fluid was removed passively. The catheter was then removed. A few key account representative images from before and after the examination were obtained. The procedure was performed by Kevin Early PA-C and supervised by Dr. Matamoros. US/US paracentesis abd w/image IMPRESSION: Ultrasound-guided paracentesis as described above. Removal of 5.2 L of yellow ascitic fluid. No immediate complications
[2023-04-12 11:52] VITALS: BMI 24.7
[2023-04-12] MEDS: Lidocaine HCl 1 % MPF 5 ML VIAL SUBCUT (13:28)
[2023-04-12 13:33] VITALS: BP 130/96; PULSE 102; RESP 16; TEMP 36.8; O2SAT 94
== END 2023-04-12 14:10 | disposition home or self-care (01) ==
LOC: HO.SSS 10:46
PROVIDERS: PCP Family Medicine; Visit Provider Physician Assistant Surgical
DX: K70.31 Alcoholic cirrhosis of liver with ascites (principal); R14.0 Abdominal distension (gaseous); D50.9 Iron deficiency anemia, unspecified; K72.90 Hepatic failure, unspecified without coma; B19.20 Unspecified viral hepatitis C without hepatic coma; F10.10 Alcohol abuse, uncomplicated; F19.10 Other psychoactive substance abuse, uncomplicated; D61.818 Other pancytopenia; R16.2 Hepatomegaly with splenomegaly, not elsewhere classified; G89.29 Other chronic pain; I10 Essential (primary) hypertension; J45.909 Unspecified asthma, uncomplicated; J44.9 Chronic obstructive pulmonary disease, unspecified; F32.A Depression, unspecified; F41.9 Anxiety disorder, unspecified; Z79.51 Long term (current) use of inhaled steroids; Z79.899 Other long term (current) drug therapy; F17.210 Nicotine dependence, cigarettes, uncomplicated
CPT/HCPCS: 49083

== ENCOUNTER → 2023-04-12 12:03 | Outpatient (BNV) | payer MEDICAID, SELFPAY | PROVIDERS: PCP Family Medicine; Visit Provider Radiology Diagnostic Radiology | DX: R18.8 Other ascites (principal) | CPT/HCPCS: 49083 ==

== ENCOUNTER 2023-05-03 11:06 | Day surgery (SDC) | payer MEDICAID, SELFPAY ==
--- NOTE | ~2023-05-03 | US_ITS ---
EXAMINATION: US GUIDED PARACENTESIS CLINICAL INFORMATION: Alcoholic cirrhosis of liver with ascites Recurrent abdominal distention COMPARISON: Ultrasound-guided paracentesis 04/12/2023 Risk and benefits and possible complications were discussed with the patient and consent form was obtained. A safe pocket of ascitic fluid was identified in the right lower quadrant using ultrasound guidance and the overlying skin was marked. The abdomen was prepped and draped in the usual sterile matter 1% lidocaine was used as a local anesthetic. Using ultrasound guidance, a 5 Portuguese catheter was placed into the ascitic pocket. 7.5 L of clear yellow fluid was removed passively. The catheter was then removed. A few pest control service representative images from before and after the procedure were obtained. The procedure was performed by Kevin Early PA-C with physician supervision. US/US paracentesis abd w/image IMPRESSION: Ultrasound-guided paracentesis as described above. Removal of 7.5 L of yellow ascitic fluid. No immediate complications.
[2023-05-03 11:50] VITALS: BMI 25.4
[2023-05-03 14:15] VITALS: BP 166/80; PULSE 92; RESP 16; TEMP 37.2; O2SAT 92
[2023-05-03] MEDS: Lidocaine HCl 1 % MPF 5 ML VIAL 10 ML SUBCUT (14:22)
[2023-05-03 14:30] VITALS: BP 161/76; PULSE 95; RESP 18; O2SAT 96
[2023-05-03 14:43] VITALS: BP 162/78; PULSE 97; RESP 16; TEMP 37.1; O2SAT 98
== END 2023-05-03 14:57 | disposition home or self-care (01) ==
PROVIDERS: Physician Assistant Surgical; PCP Family Medicine; Visit Provider Internal Medicine Gastroenterology
DX: K70.31 Alcoholic cirrhosis of liver with ascites (principal); B19.20 Unspecified viral hepatitis C without hepatic coma; I10 Essential (primary) hypertension; D50.9 Iron deficiency anemia, unspecified; Z79.899 Other long term (current) drug therapy
CPT/HCPCS: 49083; P9047

== ENCOUNTER → 2023-05-17 08:53 | Day surgery (SDC) | payer MEDICAID, SELFPAY ==
[2023-05-17 09:53] VITALS: BMI 23.6
[2023-05-17 10:17] VITALS: BP 115/69; PULSE 119; RESP 18; TEMP 37.3; O2SAT 94
[2023-05-17 10:45] LABS: Hematocrit 27.2 % (37.0-47.0); Mean Corpuscular HGB Conc 33.1 g/dl (31.0-35.0); Mean Corpuscular Hemoglobin 28.7 pg (27.0-33.0); Mean Corpuscular Volume 86.6 fL (80.0-98.0); Mean Platelet Volume 10.4 fL (9.4-12.3); Red Blood Count 3.14 X10*6/uL (4.20-5.50)
[2023-05-17 10:51] LABS: Platelet Count 58 X10*3/uL (160-400); WBC ABN SCTR FOR CBC 1
[2023-05-17 11:01] LABS: Anion Gap 19 (12-20); Blood Urea Nitrogen 89 mg/dL (9-16); Calcium 8.4 mg/dL (8.4-10.2); Carbon Dioxide 15 mmol/L (22-29); Chloride 107 mmol/L (96-108); Creatinine Clr Calc Pharmacy 10.9; Estimated Glomerular Filt Rate 11; Glucose Random 64 mg/dL (60-115); Potassium 4.6 mmol/L (3.3-5.1); Sodium 136 mmol/L (135-145)
[2023-05-17 11:57] LABS: Band Neutrophils Percent 44 % (3-5); Eosinophils Percent Manual 1 % (0-4); Lymphocytes Percent Manual 2 % (20-40); Neutrophils Percent Manual 53 % (45-73)
[2023-05-17 11:58] LABS: Microcytosis 1+ (5-14) /OIF; Platelet Estimate DECREASED (NORMAL); Platelet Morphology Comment NORMAL; RBC Morphology NOTED
[2023-05-17 11:59] LABS: Acanthocytes 2+ (3-5) /OIF; Burr Cells 3+ (>5) /OIF; Schistocytes 1+ (0-2) /OIF; Toxic Vacuolation PRESENT
[2023-05-17 12:00] LABS: Eosinophils Absolute Manual 0.2 X10*3/uL (0.0-0.4); Lymphocytes Absolute Manual 0.3 X10*3/uL (1.2-4.9); Neutrophils Absolute Manual 16.6 X10*3/uL (2.0-8.3); White Blood Count 17.1 X10*3/uL (4.8-10.8)
== END ==
PROVIDERS: Physician Assistant Surgical; PCP Family Medicine; Visit Provider Internal Medicine Gastroenterology
DX: K70.31 Alcoholic cirrhosis of liver with ascites (principal); Z53.8 Procedure and treatment not carried out for other reasons; B18.2 Chronic viral hepatitis C; F10.10 Alcohol abuse, uncomplicated
CPT/HCPCS: 36415; 80048; 85007; 85027

== ENCOUNTER 2023-05-17 10:40 | Inpatient (IN) | payer MEDICAID, SELFPAY ==
[2023-05-17] VITALS (12 sets, daily range): BP systolic 101–124; BP diastolic 59–72; PULSE 102–121; RESP 12–20; TEMP 36.2–37.1; O2SAT 93–100; BMI 52.1
--- NOTE | ~2023-05-17 | CT_ITS ---
EXAMINATION: CT ABDOMEN AND PELVIS WITHOUT CONTRAST CLINICAL INFORMATION: Drop in hemoglobin/hematocrit. Bruising. Left groin lesion. COMPARISON: 03/16/2022 TECHNIQUE: Multidetector volumetric imaging was performed from the superior aspect of the liver through the pubic symphysis. Sagittal and coronal reformatted images were obtained on the technologist's workstation. This CT examination was performed using dose optimization techniques as appropriate, variously including the following: *Automated exposure control *Adjustment of mA and/or kV according to patient size (this includes techniques or standardized protocols for targeted exams where dose is matched to indication/reason for exam; i.e. extremities or head) *Use of iterative reconstruction technique DLP: 487 mGy-cm FINDINGS: LUNG BASES: No pleural or pericardial effusion. LIVER, GALLBLADDER, AND BILIARY TREE: The noncontrast liver is cirrhotic in morphology. No biliary ductal dilatation is present. Gallstones. PANCREAS: No ductal dilatation. Small calcification in the head of the pancreas. SPLEEN: Enlarged. ADRENAL GLANDS: No adrenal mass. KIDNEYS AND URETERS: The kidneys are symmetric in size. No hydronephrosis. No perinephric stranding. BLADDER: Unremarkable. GASTROINTESTINAL TRACT: Diffuse wall thickening of the colon and rectum. Small bowel wall thickening may be reactive on the basis of ascites. ABDOMINAL WALL: Subcutaneous edema/anasarca. Large ascites in the abdomen and pelvis. No hyperdensity within the fluid to suggest blood products. LYMPH NODES: No bulky lymphadenopathy. VASCULAR: No abdominal aortic aneurysm. PELVIC VISCERA: Left groin skin defect. No large adnexal mass. OSSEOUS STRUCTURES: No destructive bone lesions. CT/CT abdomen pelvis wo IV con IMPRESSION: Cirrhotic liver. Findings of portal hypertension including hepatomegaly and large abdominopelvic ascites. Diffuse wall thickening of the colon and rectum. The degree of wall thickening is out of proportion to the surrounding fluid. Infectious and inflammatory etiologies should be considered. Cholelithiasis. Anasarca.
--- NOTE | ~2023-05-17 | XR_ITS ---
EXAMINATION: XR CHEST CLINICAL INFORMATION: Dyspnea COMPARISON: 05/17/2023 TECHNIQUE: Frontal view of the chest was obtained. FINDINGS: The lungs are hypoinflated. There are mild, somewhat streaky regions of opacity at the bilateral lung bases which appear increased from prior. No evidence of pneumothorax or significant pleural effusion. Mildly coarsened appearance of the interstitium is noted diffusely. The cardiomediastinal silhouette is stable. Redemonstrated chronic appearing right seventh rib deformity. XR/XR chest 1V IMPRESSION: 1. Low lung volumes with mild, somewhat streaky bibasilar opacities which may reflect atelectasis in the setting of low lung volumes, though developing consolidation cannot be excluded. 2. Coarsened appearance of the interstitium may reflect underlying chronic airways disease.
--- NOTE | ~2023-05-17 | CT_ITS ---
EXAMINATION: CT HEAD WITHOUT CONTRAST CLINICAL INFORMATION: Fall. COMPARISON: CT head dated 09/28/2022. TECHNIQUE: Contiguous axial imaging was performed from the skull base to vertex without intravenous administration of contrast. This CT examination was performed using dose optimization techniques as appropriate, variously including the following: *Automated exposure control *Adjustment of mA and/or kV according to patient size (this includes techniques or standardized protocols for targeted exams where dose is matched to indication/reason for exam; i.e. extremities or head) *Use of iterative reconstruction technique DLP: 671.5 mGy-cm FINDINGS: There is no intracranial hemorrhage. There is no evidence of acute/subacute cerebral or cerebellar infarction. There is mild microvascular ischemic change. There is no midline shift or mass effect. There is no extra-axial fluid collection. The ventricles are normal in size. The orbits are symmetric and within normal limits. The calvarium is intact. The visualized paranasal sinuses are well aerated. Mastoid air cells are clear. There is congenital nonunion of the posterior arch of C1. CT/CT head/brain wo IV con IMPRESSION: No acute intracranial pathology. Mild microvascular ischemic change.
--- NOTE | ~2023-05-17 | CT_ITS ---
EXAMINATION: CT CERVICAL SPINE WITHOUT CONTRAST CLINICAL INFORMATION: Fall. COMPARISON: CT cervical spine dated 09/28/2022. TECHNIQUE: Noncontrast computed tomography of the cervical spine was performed. This CT examination was performed using dose optimization techniques as appropriate, variously including the following: *Automated exposure control *Adjustment of mA and/or kV according to patient size (this includes techniques or standardized protocols for targeted exams where dose is matched to indication/reason for exam; i.e. extremities or head) *Use of iterative reconstruction technique DLP: 423.72 mGy-cm FINDINGS: The study is limited secondary to motion artifact. There is straightening of the cervical lordosis. The cervical vertebral bodies demonstrate preserved stature. There is a moderate, age indeterminant compression deformity of the superior endplate of the T3 vertebral body. There is a mild age indeterminant compression deformity of the anterior aspect of the T2 vertebral body. The facet joints are anatomically aligned. The C1-C2 relationship is anatomic. The dens is intact. Prevertebral soft tissue is normal in appearance. The paraspinal soft tissue is normal in appearance. There is congenital nonunion of the posterior arch of C1. Accounting for artifact, there is no gross cervical spine fracture. There is diffuse emphysematous change of the lung apices. CT/CT cervical spine wo IV con IMPRESSION: - The study is limited secondary to motion artifact. - Accounting for artifact, there is no gross cervical spine fracture. Alignment is maintained. - There is a moderate, age indeterminant compression deformity of the superior endplate of the T3 vertebral body. There is a mild age indeterminant compression deformity of the anterior aspect of the superior endplate of the T2 vertebral body. Fleischner guidelines were followed. Findings were discussed with Vashti Patricio at 2:13 PM on 05/17/2023.
--- NOTE | ~2023-05-17 | XR_ITS ---
EXAMINATION: XR CHEST CLINICAL INFORMATION: Postcentral line COMPARISON: None available. TECHNIQUE: Frontal view of the chest was obtained. FINDINGS: The lungs are hypoexpanded but clear of acute process. The heart size and pulmonary vascularity is normal. There is mild deformity right posterior seventh rib likely healing fracture. XR/XR chest 1V IMPRESSION: 1. Hypoexpanded lungs without acute process. 2. Mild deformity right posterior seventh rib likely healing fracture.
--- NOTE | ~2023-05-17 | XR_ITS ---
EXAMINATION: XR ABDOMEN KUB CLINICAL INDICATION: Abdominal distention, ascites COMPARISON: CT from 05/17/2023 TECHNIQUE: AP view of the abdomen. FINDINGS: None specific bowel gas pattern without evidence of obstruction. There is centralization of the bowel loops consistent with history of underlying ascites. XR/XR KUB IMPRESSION: Nonspecific bowel gas pattern.
--- NOTE | ~2023-05-17 | XR_ITS ---
EXAMINATION: XR HIP, LEFT CLINICAL INFORMATION: Pain. Fall. COMPARISON: None available. TECHNIQUE: 3 radiographs of the left hip. FINDINGS: There is no displaced pelvic fracture. The sacroiliac joints and symphysis pubis are maintained. The visualized left femur is intact. The left hip joint is maintained. Regional soft tissue is unremarkable. There are pelvic phleboliths. XR/XR hip LT w PEL1V IMPRESSION: No left hip fracture or dislocation.
--- NOTE | ~2023-05-17 | US_ITS ---
ULTRASOUND GUIDED PARACENTESIS HISTORY: Ascites. Therapeutic drainage. Procedure performed in the ICU at bedside. Risks and benefits and possible complications were discussed with the patient's son and consent form was signed. A safe pocket of ascitic fluid was identified in the right lower quadrant using ultrasound guidance, and the overlying skin was marked, prepped and draped in sterile fashion. 1% lidocaine was used as a local anesthetic. Using ultrasound guidance, a 5 fr catheter was placed into the ascitic pocket. 2.0 liters of yellow fluid was removed passively. The catheter was then removed. A few telecommunications sales representative images from before and after the examination were obtained. The procedure was performed by Kevin Early PA-C and supervised by Dr. Matamoros. US/US paracentesis abd w/image IMPRESSION: Ultrasound-guided paracentesis as described above. No immediate complications
--- NOTE | ~2023-05-17 | US_ITS ---
ULTRASOUND GUIDED PARACENTESIS HISTORY: Ascites. Renal failure Risks and benefits and possible complications were discussed with the patient and consent form was signed. A safe pocket of ascitic fluid was identified using ultrasound guidance, and the overlying skin was marked, prepped and draped in sterile fashion. 1% lidocaine was used as a local anesthetic. Using ultrasound guidance, a 5 fr catheter was placed into the ascitic pocket. 1.0 liters of yellow fluid was removed passively. The catheter was then removed. A 3-0 nylon suture was placed at the access site to prevent leaking. A few home furnishings sales representative images from before and after the examination were obtained. A sample was sent for laboratory analysis. The procedure was performed by Kevin Early PA-C and supervised by Dr. Matamoros. US/US paracentesis abd w/image IMPRESSION: Ultrasound-guided diagnostic paracentesis as described above. No immediate complications
--- NOTE | ~2023-05-17 | US_ITS ---
EXAMINATION: US VENOUS ULTRASOUND WITH DOPPLER LOWER EXTREMITY, BILATERAL CLINICAL INFORMATION: Bilateral swelling from groin to ankle COMPARISON: None available. TECHNIQUE: Ultrasound of the deep veins is performed from the hip to the calf with compression sonography and color and pulse Doppler assessment. Spectral analysis with color-flow imaging is performed. FINDINGS: RIGHT: There is normal venous compression and respiratory variation. The visualized common femoral vein, superficial femoral vein, profunda femoral vein, popliteal vein, and the mid calf posterior tibial and peroneal veins shows no evidence of deep venous thrombosis. LEFT: There is normal venous compression and respiratory variation. The visualized common femoral vein, superficial femoral vein, profunda femoral vein, popliteal vein, and the mid calf posterior tibial and peroneal veins shows no evidence of deep venous thrombosis. In the left groin, there is a complex cystic area measuring 2.1 x 0.8 x 1.8 cm with vascular flow. This is not the typical appearance of a lymph node. This of uncertain etiology. US/US venous duplex LE BI IMPRESSION: 1. No DVT demonstrated in the bilateral lower extremities. 2. Complex cystic area in the left groin with vascular flow. This is not the typical appearance of a lymph node. This of uncertain etiology.
--- NOTE | 2023-05-17 11:41 | ED.GENADULT ---
HPI - General Adult General Chief complaint: General Medical Stated complaint: Leg Swelling Time Seen by Provider: 05/17/23 10:59 Source: patient and old records reviewed Mode of arrival: other (from short stay was due for paracentesis which was not done) Limitations: other (poor historian) History of Present Illness HPI narrative: 57 yo female with PMH of COPD, HTN, ETOH / hep C cirrhosis still drinking not on transplant list with ascites and weekly paracentesis, liver encephalopathy, was going to have a paracentesis today when SS RN noted bilateral leg swelling which is pretty baseline but sig bruising on the legs. The patient denied anything initially to me but notes she thinks she might have bumped her leg when she was walking the other day. She admits to drinking. She is confused. MD complaint: leg swelling/contusion Onset (ago): day(s) (4) Location: lower extremity Radiation: non-radiation Severity: moderate Related Data Home Medications Medication Instructions Recorded Confirmed buprenorphine 8 mg-naloxone 2 mg 1 film buccal DAILY 02/24/20 02/01/23 sublingual film (Suboxone) multivitamin 1 tab PO DAILY 02/24/20 02/01/23 sertraline 50 mg tablet 150 mg PO DAILY@1200 02/24/20 02/01/23 trazodone 50 mg tablet 100 mg PO BEDTIME 02/24/20 02/01/23 docusate sodium 100 mg capsule 100 mg PO DAILY 07/20/20 02/01/23 (DOK) fluticasone propionate 220 1 puff inhalation BID 05/15/22 02/01/23 mcg/actuation HFA aerosol inhaler (Flovent HFA) fluticasone propionate 50 2 spray intranasal DAILY PRN 05/15/22 02/01/23 mcg/actuation nasal Allergic Symptoms spray,suspension folic acid 1 mg tablet 1 tab PO QAM 05/15/22 02/01/23 oxybutynin chloride 5 mg 1 tab PO QAM 05/15/22 02/01/23 tablet,extended release 24 hr thiamine HCl (vitamin B1) 100 mg 1 tab PO QAM 05/15/22 02/01/23 tablet baclofen 10 mg tablet 10 mg PO BEDTIME PRN muscle spasm 09/29/22 02/01/23 ipratropium 20 mcg-albuterol 100 1 puff inhalation QID PRN Wheezing 09/29/22 02/01/23 mcg/actuation mist for inhalation (Combivent Respimat) furosemide 40 mg tablet 40 mg PO BID@0900,1200 10/02/22 02/01/23 omeprazole 20 mg capsule,delayed 20 mg PO BID 10/02/22 02/01/23 release spironolactone 25 mg tablet 100 mg PO DAILY 10/02/22 02/01/23 Previous Rx's Medication Instructions Recorded lactulose 20 gram/30 mL oral 20 g (30 mL) PO BID #1,200 mL 10/07/22 solution calcium carbonate 1,000 mg-vitamin 1 tab PO .Once a day 90 days #90 02/01/23 D3 20 mcg (800 unit) tablet tabs cholecalciferol (vitamin D3) 50 50 mcg PO DAILY 90 days #90 caps 02/01/23 mcg (2,000 unit) capsule rifaximin 550 mg tablet (Xifaxan) 550 mg PO BID 30 days #60 tabs 03/28/23 Allergies Allergy/AdvReac Type Severity Reaction Status Date / Time No Known Allergies Allergy Verified 03/29/23 11:22 Review of Systems Review of Systems: Constitutional : No Fever, No Chills, pos Fatigue ENT/Mouth : No sore throat, No Rhinorrhea Eyes: No Eye Pain, No Swelling, No Redness Cardiovascular : No Chest Pain, No SOB, No Dyspnea on Exertion Respiratory : No Cough, No Sputum Gastrointestinal : pos Nausea, No Vomiting, No Diarrhea, pos abdominal Pain, pos melena Genitourinary : No Dysuria, No Urinary Frequency, No Hematuria, Musculoskeletal : No joint pain, No Myalgias, No Joint Swelling Skin : No Skin Lesions, No rash Neuro : No Weakness, No Numbness, No Dizziness, no Headache Psych : pos Anxiety/Panic, No Depression Heme/Lymph: pos Bruising, No Bleeding,No Lymphadenopathy Endocrine : No Polyuria, No Polydipsia All other systems reviewed and are negative [facility], LAT[facility] Past Medical History Medical History (Updated 05/17/23 @ 15:14 by Vashti Barraza DO) Alcohol abuse with withdrawal Transaminitis Coagulopathy Acute respiratory failure with hypoxia COPD (chronic obstructive pulmonary disease) Hyperammonemia Thrombocytopenia Alcoholic cirrhosis of liver with ascites Pancytopenia Alcohol abuse Panic attacks 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) Hepatomegaly Microhematuria Polysubstance abuse Hand paresthesia COPD (chronic obstructive pulmonary disease) Anxiety Elevated rheumatoid factor Hepatitis C Surgical History History of abdominal paracentesis History of esophagogastroduodenoscopy (EGD) (~02/2017) History of delivery Family History Family History Father Family history of high blood pressure Mother Alive and well Social History Social History Household Members: Children Housing: Apartment Do you presently have visiting nurse or other home services: No Alcohol intake: current Alcohol intake frequency: 0-2 drinks per day Alcohol type: beer Patient Tobacco Use Status: Current everyday Tobacco user Tobacco use type: Cigarette Cigarettes Per Day: 2 Smoked in Last 30 Days: Yes Second Hand Smoke Exposure: No Use of substances other than those prescribed or required for medical reasons: No Advance Directives: Yes Advance Directives on File: Yes Advance Directives Date on File: 08/16/20 Patient : No service: No Current occupational status: unemployed Physical Exam ED Vital Signs: Vital Signs - 24 hr 05/17/23 11:07 05/17/23 13:45 05/17/23 14:49 Temperature 97.2 F 98.7 F Pulse Rate 119 H 116 H 121 H Respiratory Rate 16 17 Blood Pressure 116/64 124/70 117/61 Pulse Oximetry 93 95 Oxygen Delivery Method Room Air Room Air Oxygen Flow Rate 05/17/23 15:04 05/17/23 15:30 Temperature 98.0 F Pulse Rate 108 H 116 H Respiratory Rate 13 12 Blood Pressure 106/70 113/63 Pulse Oximetry 100 Oxygen Delivery Method Nasal Cannula Oxygen Flow Rate 4 BMI result Body Mass Index 52.1 Appearance: Alert. Oriented X2. No acute distress. Eyes: Pupils equal, round and reactive to light. scleral icterus ENT: Pharynx normal. atraumatic Neck: Normal inspection. Neck supple. CVS: Normal heart rate and rhythm. Pulses normal. Respiratory: No respiratory distress. Breath sounds normal. Abdomen: large ascites there is ecchymosis streaks noted in the stretch hidalgo of her abdomen no large contusion noted or expanding hematoma Skin: Skin warm and dry. Normal skin color. Normal skin turgor. Extremities: 1-2+ pitting edema, bilateral contusions L hip worse than right lower extremity it is not blanchable L hip ttp she has distal pulses intact. compartments are soft and compressible Neuro: Oriented X 2. No motor deficit. No sensory deficit. Course Course Course Narrative: patient states she only comes here for labs Cr changed WBC count up BUN elevated H/H has dropped at this time given lab derangement and overall clinical picture infection is suspected as well as possible hepatorenal syndrome 130pm message sent to GI pending reccs message sent to Chey - follow up outpatient US finding I cannot feel the lesion externally albumin, fluids, PRBC, ceftriaxone, protonix ordered, lactulose 2016 EGD did have varices prior to repeat EGD patient was intoxicated Dr. Nj PPI, octreotide, albumin 100ml QID x 2 days call to Renal - kay placement will follow Dr. Guerrier - follow up outpatient US finding I cannot feel the lesion externally patient also notes black stools at home but thought that was normal when you eat chocolate still pending call back from nephrology - page sent out and consult ordered placed patient not in distress no need for emergent HD Reevaluation(s) Reevaluation #1: will need central line patient states she wants to live so will place line at this time 210pm attempted to reach son listed to notify no response i ended up doing EJs because they were so engorged that I felt with central line access I would end up going through the EJ or tying one off to place central line. patient states she no longer talks to her sons reportedly desaturated to 31% and was awake and talking no distress then given NC 5L and went right up to 100%. CXR clear no distress no cough. Medications Administered Generic Name Dose Route Start Last Admin Trade Name Freq PRN Reason Stop Dose Admin Albumin Human 100 mls @ 100 mls/hr 05/17/23 15:00 05/17/23 14:53 Kedbumin 25 % IV 05/17/23 16:59 100 mls/hr Q1H ABBY Administration Phytonadione 10 mg/ Sodium 51 mls @ 51 mls/hr 05/17/23 15:00 05/17/23 15:06 Chloride IV 05/17/23 15:59 51 mls/hr ONCE ONE Administration Discontinued Medications Generic Name Dose Route Start Last Admin Trade Name Freq PRN Reason Stop Dose Admin Sodium Chloride 500 mls @ 500 mls/hr 05/17/23 13:15 05/17/23 15:05 Ns IV 05/17/23 14:14 Infused .Q1H ABYB Infusion Ceftriaxone Sodium 1 gm/ 50 mls @ 100 mls/hr 05/17/23 13:09 05/17/23 14:47 Sodium Chloride IV 05/17/23 13:38 Infused ONCE ONE Infusion Lactulose 20 gm 05/17/23 12:53 05/17/23 14:01 Lactulose 20 Gm/30 Ml Solution PO 05/17/23 12:54 20 gm ONCE ONE Administration Octreotide Acetate 50 mcg 05/17/23 13:35 05/17/23 14:51 Octreotide Acetate 100 Mcg/Ml Ampul IVPUSH 05/17/23 13:36 50 mcg ONCE ONE Administration Pantoprazole Sodium 40 mg 05/17/23 13:08 05/17/23 14:00 Pantoprazole Sodium 40 Mg/10 Ml Vial IVPUSH 05/17/23 13:09 40 mg ONCE ONE Administration Procedures EJ/Peripheral Line Neck L: Time Out Performed: Yes Skin Cleansed in Sterile Fashion: Yes IV Secured and Dressing Applied: Yes Patient Tolerated Procedure: well and no complications Neck R: Time Out Performed: Yes Skin Cleansed in Sterile Fashion: Yes Size (gauge): 18 IV Secured and Dressing Applied: Yes Patient Tolerated Procedure: well and no complications Medical Decision Making Medical Decision Making [facility] Narrative: 57 yo female with PMH of COPD, HTN, ETOH / hep C cirrhosis still drinking not on transplant list with ascites and weekly paracentesis, liver encephalopathy here with c/o brusing and swelling to both legs likely in setting of fall - she is confused did not get paracentesis today at this time labs, CT head/cspine, hip xrays, labs, coags, ammonia and ETOH level anticipate hepatic encephalopathy vs anemia - her labs prior to the procedure showed sig derangement will repeat and workup accordingly. The lab did call me during our CBC to report bandemia. Differential Diagnosis Differential Diagnoses: The differential diagnosis associated with the presentation includes fall, elevated INR, contusion, falls, thrombocytopenia, ICH, encephalopathy Admission/Observation Consideration of admission/observation: Escalation of care including admission/observation considered admit given the degree of her abnormalities Consult Healthcare Provider Management of the patient was discussed with: Hospitalist and Household Appliance Installer Lab Data [facility] Lab Attestation statement: I reviewed the patient's lab results. 05/17/23 12:35 05/17/23 12:34 Labs: Lab Results 05/17/23 05/17/23 05/17/23 Range/Units 12:34 12:35 13:39 WBC 16.7 H (4.8-10.8) X10*3/uL RBC 2.66 L (4.20-5.50) X10*6/uL Hgb 7.6 L (12.0-16.0) g/dl Hct 23.0 L (37.0-47.0) % MCV 86.5 (80.0-98.0) fL MCH 28.6 (27.0-33.0) pg MCHC 33.0 (31.0-35.0) g/dl RDW 19.2 H (11.0-16.0) % Plt Count 59 L (160-400) X10*3/uL MPV 10.8 (9.4-12.3) fL Immature Gran % (Auto) Cancelled Neut % (Auto) Cancelled Lymph % (Auto) Cancelled Tw[place]gs % (Auto) Cancelled Eos % (Auto) Cancelled Baso % (Auto) Cancelled Lymph # (Auto) Cancelled [place]gs # (Auto) Cancelled Eos # (Auto) Cancelled Baso # (Auto) Cancelled Abs Immat Gran (auto) Cancelled Absolute Neuts (auto) Cancelled Absolute Nucleated RBC 0.000 (0.0-0.012) X10*3/uL Nucleated RBC % (auto) 0.0 (0.0-0.2) /100WBC Neutrophils % (Manual) 56 (45-73) % Band Neutrophils % 42 H (3-5) % Lymphocytes % (Manual) 1 L (20-40) % Monocytes % (Manual) 1 L (2-11) % Abs Neuts (Manual) 16.4 H (2.0-8.3) X10*3/uL Lymphocytes # (Manual) 0.2 L (1.2-4.9) X10*3/uL Monocytes # (Manual) 0.2 (0.1-1.2) X10*3/uL Toxic Vacuolation PRESENT Platelet Estimate DECREASED (NORMAL) Plt Morphology Comment NORMAL RBC Morphology NOTED Microcytosis 1+ (5-14) /OIF Maud Cells 3+ (>5) /OIF Acanthocytes (Spur) 2+ (3-5) /OIF Schistocytes 1+ (0-2) /OIF ESR 102 H (0-20) MM/HR PT 27.8 H D (11.1-13.3) SEC INR 2.3 H (0.9-1.1) Sodium 136 (135-145) mmol/L Potassium 4.0 (3.3-5.1) mmol/L Chloride 108 (96-108) mmol/L Carbon Dioxide 17 L (22-29) mmol/L Anion Gap 15 (12-20) BUN 92 H (9-16) mg/dL Creatinine 4.45 H* (0.5-1.4) mg/dL Estim Creat Clear Calc 16.2 Estimated GFR 10 Random Glucose 68 (60-115) mg/dL Lactic Acid 2.2 H* (0.5-2.0) mmol/L Calcium 8.4 (8.4-10.2) mg/dL Total Bilirubin 1.3 H (0.0-1.0) mg/dL AST 30 (5-31) U/L ALT 15 (0-31) U/L Alkaline Phosphatase 102 (39-117) U/L Ammonia 93 H (13-55) umol/L Total Creatine Kinase 47 (26-140) U/L Total Protein 6.3 L (6.5-8.0) g/dL Albumin 2.1 L (3.5-5.0) g/dL Lipase 17 (8-78) U/L Stool Occult Blood (NEGATIVE) Ethyl Alcohol < 10 mg/dL Blood Type O Positive Antibody Screen NEGATIVE Crossmatch See Detail 05/17/23 Range/Units 13:44 WBC (4.8-10.8) X10*3/uL RBC (4.20-5.50) X10*6/uL Hgb (12.0-16.0) g/dl Hct (37.0-47.0) % MCV (80.0-98.0) fL MCH (27.0-33.0) pg MCHC (31.0-35.0) g/dl RDW (11.0-16.0) % Plt Count (160-400) X10*3/uL MPV (9.4-12.3) fL Immature Gran % (Auto) Neut % (Auto) Lymph % (Auto) Twiggs % (Auto) Eos % (Auto) Baso % (Auto) Lymph # (Auto) Twiggs # (Auto) Eos # (Auto) Baso # (Auto) Abs Immat Gran (auto) Absolute Neuts (auto) Absolute Nucleated RBC (0.0-0.012) X10*3/uL Nucleated RBC % (auto) (0.0-0.2) /100WBC Neutrophils % (Manual) (45-73) % Band Neutrophils % (3-5) % Lymphocytes % (Manual) (20-40) % Monocytes % (Manual) (2-11) % Abs Neuts (Manual) (2.0-8.3) X10*3/uL Lymphocytes # (Manual) (1.2-4.9) X10*3/uL Monocytes # (Manual) (0.1-1.2) X10*3/uL Toxic Vacuolation Platelet Estimate (NORMAL) Plt Morphology Comment RBC Morphology Microcytosis /OIF Dora Cells /OIF Acanthocytes (Spur) /OIF Schistocytes /OIF ESR (0-20) MM/HR PT (11.1-13.3) SEC INR (0.9-1.1) Sodium (135-145) mmol/L Potassium (3.3-5.1) mmol/L Chloride (96-108) mmol/L Carbon Dioxide (22-29) mmol/L Anion Gap (12-20) BUN (9-16) mg/dL Creatinine (0.5-1.4) mg/dL Estim Creat Clear Calc Estimated GFR Random Glucose (60-115) mg/dL Lactic Acid (0.5-2.0) mmol/L Calcium (8.4-10.2) mg/dL Total Bilirubin (0.0-1.0) mg/dL AST (5-31) U/L ALT (0-31) U/L Alkaline Phosphatase (39-117) U/L Ammonia (13-55) umol/L Total Creatine Kinase (26-140) U/L Total Protein (6.5-8.0) g/dL Albumin (3.5-5.0) g/dL Lipase (8-78) U/L Stool Occult Blood POSITIVE (NEGATIVE) Ethyl Alcohol mg/dL Blood Type Antibody Screen Crossmatch Independent Interpretation I performed an independent interpretation of an: EKG, Plain X-Ray and CT Scan (no ICH, no bleeding noted, ? colitis) Interpretation: Rate: 119 Rhythm: sinus tachycardia [place]: left Normal P waves. Normal TONJA. Normal QRS complex. ST T wave : normal no MIGUELINA qTC: 450 prior studies: no acute ischemia The study has been interpreted contemporaneously by me. . Radiology Impression Discussion of test interpretation with radiology: I discussed test interpretation with the radiologist and I have reviewed the radiologist's reading. Radiologist Impression: no ICH, compression deformities of T2 and T3 - age indeterminate Independent Historian Clinical information obtained from an independent historian. History obtained from or confirmed by: Other External Record Review External record reviewed: Inpatient record Critical Care Time Critical Care Time Critical Care Time: Yes Total Critical Care Time: 90 Attestation: review of records, IV lines, resuscitation medical consults, medications to resuscitate I attest to this time spent taking care of the patient Discharge Plan Discharge Clinical Impression: Encephalopathy, hepatic, Acute on chronic anemia, Elevated BUN, Bandemia Acute on chronic renal failure Qualifiers: Acute renal failure type: unspecified Chronic kidney disease stage: unspecified stage Qualified Code(s): N17.9 - Acute kidney failure, unspecified Ascites Qualifiers: Ascites type: due to alcoholic cirrhosis Qualified Code(s): K70.31 - Alcoholic cirrhosis of liver with ascites Patient Disposition: Admitted As Inpatient
[2023-05-17 12:49] LABS: Hemoglobin 7.6 g/dl (12.0-16.0); Mean Corpuscular Hemoglobin 28.6 pg (27.0-33.0); Mean Corpuscular Volume 86.5 fL (80.0-98.0); Mean Platelet Volume 10.8 fL (9.4-12.3); Red Blood Count 2.66 X10*6/uL (4.20-5.50); Red Cell Distribution Width 19.2 % (11.0-16.0)
[2023-05-17 12:51] LABS: Ammonia 93 umol/L (13-55)
[2023-05-17 12:57] LABS: Platelet Count 59 X10*3/uL (160-400); WBC ABN SCTR FOR CBC 1; White Blood Count 16.7 X10*3/uL (4.8-10.8)
[2023-05-17 13:01] LABS: Ethanol < 10 mg/dL
[2023-05-17 13:04] LABS: Alanine Aminotransferase 15 U/L (0-31); Albumin Level 2.1 g/dL (3.5-5.0); Alkaline Phosphatase 102 U/L (39-117); Anion Gap 15 (12-20); Aspartate Amino Transferase 30 U/L (5-31); Bilirubin Total 1.3 mg/dL (0.0-1.0); Blood Urea Nitrogen 92 mg/dL (9-16); Calcium 8.4 mg/dL (8.4-10.2); Carbon Dioxide 17 mmol/L (22-29); Chloride 108 mmol/L (96-108); Creatinine Clr Calc Pharmacy 16.2; Estimated Glomerular Filt Rate 10; Glucose Random 68 mg/dL (60-115); INTERNATIONAL NORM RATIO 2.3 (0.9-1.1); Lipase 17 U/L (8-78); Prothrombin Time 27.8 SEC (11.1-13.3); Sodium 136 mmol/L (135-145); Total Protein 6.3 g/dL (6.5-8.0)
--- NOTE | 2023-05-17 13:39 | P.CNGI_ITS ---
History of Present Illness Data of Consult Service Date: 05/17/23 Requesting physician: Vashti Barraza Primary Care Provider: DO SINTIA Wasserman Reason for consult: Cirrhosis, VLADIMIR This is a 57-year-old female with past medical history of alcohol use disorder and chronic hepatitis-C that has led to liver cirrhosis complicated by portal hypertension with ascites, and hepatic encephalopathy. Patient was scheduled for paracentesis this morning, where she was found to have confusion and significant bruising of her legs and therefore sent to the emergency room for further evaluation. Patient reports feeling unwell for the past 1 week. Reports headache, abdominal pain, difficulty urination and diarrhea. No fevers, chills. Does not describe any periods of confusion, but does report has been having trouble sleeping at night. Has not been taking her lactulose due to diarrhea. Last drink was this morning before coming in for paracentesis. Drink of choice is beer, reports 25oz beers x3 per day. When she presented for her paracentesis, she was noted to have significant low swelling and redness in her legs with labs significant for VLADIMIR and worsening coagulopathy from before for which she was sent to the emergency room. Vitally has been noted to be tachycardic but with normal pressures. Labs as below. Imaging shows possible colitis as well as known cirrhosis. Review of Systems 2 Review of Systems: Yes all other systems are reviewed and are negative PMFSH Past Medical History Medical History (Updated 05/17/23 @ 15:14 by Vashti Barraza DO) Alcohol abuse with withdrawal Transaminitis Coagulopathy Acute respiratory failure with hypoxia COPD (chronic obstructive pulmonary disease) Hyperammonemia Thrombocytopenia Alcoholic cirrhosis of liver with ascites Pancytopenia Alcohol abuse Panic attacks 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) Hepatomegaly Microhematuria Polysubstance abuse Hand paresthesia COPD (chronic obstructive pulmonary disease) Anxiety Elevated rheumatoid factor Hepatitis C Family History Family History Father Family history of high blood pressure Mother Alive and well Surgical History Surgical History History of abdominal paracentesis History of esophagogastroduodenoscopy (EGD) (~02/2017) History of delivery Social History Social History Household Members: Children Housing: Apartment Do you presently have visiting nurse or other home services: No Alcohol intake: current Alcohol intake frequency: 0-2 drinks per day Alcohol type: beer Patient Tobacco Use Status: Current everyday Tobacco user Tobacco use type: Cigarette Cigarettes Per Day: 2 Smoked in Last 30 Days: Yes Second Hand Smoke Exposure: No Use of substances other than those prescribed or required for medical reasons: No Advance Directives: Yes Advance Directives on File: Yes Advance Directives Date on File: 08/16/20 Patient : No service: No Current occupational status: unemployed Meds Allergies Allergy/AdvReac Type Severity Reaction Status Date / Time No Known Allergies Allergy Verified 03/29/23 11:22 Active Medications: Current Medications Albumin Human (Kedbumin 25 %) 100 mls @ 100 mls/hr IV Q1H [facility] Stop: 05/17/23 15:14 Sodium Chloride (Ns) 100 mls @ 100 mls/hr IV ONCE ONE Stop: 05/17/23 14:05 Sodium Chloride (Ns) 500 mls @ 500 mls/hr IV .Q1H [facility] Stop: 05/17/23 14:14 Phytonadione 10 mg/ Sodium (Chloride) 51 mls @ 51 mls/hr IV ONCE ONE Stop: 05/17/23 14:07 Octreotide Acetate 500 mcg/ (Sodium Chloride) 501 mls @ 50.1 mls/hr IVCONT .Q10H [facility] Home Medications Medication Instructions Recorded Confirmed Last Taken Type buprenorphine 8 mg-naloxone 2 mg 1 film buccal DAILY 02/24/20 02/01/23 10/26/22 History sublingual film (Suboxone) multivitamin 1 tab PO DAILY 02/24/20 02/01/23 10/26/22 History sertraline 50 mg tablet 150 mg PO DAILY@1200 02/24/20 02/01/23 10/26/22 History trazodone 50 mg tablet 100 mg PO BEDTIME 02/24/20 02/01/23 08/24/22 History docusate sodium 100 mg capsule 100 mg PO DAILY 07/20/20 02/01/23 10/26/22 History (DOK) fluticasone propionate 220 1 puff inhalation BID 05/15/22 02/01/23 10/26/22 History mcg/actuation HFA aerosol inhaler (Flovent HFA) fluticasone propionate 50 2 spray intranasal DAILY PRN 05/15/22 02/01/23 08/24/22 History mcg/actuation nasal Allergic Symptoms spray,suspension folic acid 1 mg tablet 1 tab PO QAM 05/15/22 02/01/23 10/26/22 History oxybutynin chloride 5 mg 1 tab PO QAM 05/15/22 02/01/23 10/26/22 History tablet,extended release 24 hr thiamine HCl (vitamin B1) 100 mg 1 tab PO QAM 05/15/22 02/01/23 10/26/22 History tablet baclofen 10 mg tablet 10 mg PO BEDTIME PRN muscle spasm 09/29/22 02/01/23 10/26/22 History ipratropium 20 mcg-albuterol 100 1 puff inhalation QID PRN Wheezing 09/29/22 02/01/23 10/26/22 History mcg/actuation mist for inhalation (Combivent Respimat) furosemide 40 mg tablet 40 mg PO BID@0900,1200 10/02/22 02/01/23 10/26/22 History omeprazole 20 mg capsule,delayed 20 mg PO BID 10/02/22 02/01/23 10/26/22 History release spironolactone 25 mg tablet 100 mg PO DAILY 10/02/22 02/01/23 10/26/22 History Physical Exam 2 Vital Signs: Vital Signs: Last Vital Signs Temp 97.2 F 05/17/23 11:07 Pulse 119 H 05/17/23 11:07 Resp 16 05/17/23 11:07 BP 116/64 05/17/23 11:07 Pulse Ox 93 05/17/23 11:07 O2 Del Method Room Air 05/17/23 11:07 BMI result Body Mass Index 52.1 Frail-appearing female Significant bitemporal muscle wasting No icterus appreciated Abdomen soft, distended, tender Lower extremities with diffuse ecchymosis and warm to touch Oriented x3, asterixis ++ Results Labs 05/17/23 12:35 05/17/23 12:34 Labs: Short CBC 05/17/23 Range/Units 12:35 WBC 16.7 H (4.8-10.8) X10*3/uL Hgb 7.6 L (12.0-16.0) g/dl Hct 23.0 L (37.0-47.0) % Plt Count 59 L (160-400) X10*3/uL BMP 05/17/23 12:34 Sodium 136 Potassium 4.0 Chloride 108 Carbon Dioxide 17 L BUN 92 H Creatinine 4.45 H* Calcium 8.4 Cardiac Enzymes 05/17/23 Range/Units 12:34 Total Creatine Kinase 47 (26-140) U/L Liver Function 05/17/23 Range/Units 12:34 Total Bilirubin 1.3 H (0.0-1.0) mg/dL AST 30 (5-31) U/L ALT 15 (0-31) U/L Alkaline Phosphatase 102 (39-117) U/L Albumin 2.1 L (3.5-5.0) g/dL Assessment and Plan (1) Ascites: Qualifiers: Ascites type: due to alcoholic cirrhosis Qualified Code(s): K70.31 - Alcoholic cirrhosis of liver with ascites Status: Acute (2) Acute on chronic anemia: Status: Acute (3) Acute kidney injury: Status: Acute (4) Encephalopathy, hepatic: Status: Acute (5) Alcoholic cirrhosis of liver with ascites: Status: Acute (6) Hepatitis C: Status: Acute Plan # EtOH and HCV related decomp cirrhosis - MELD-Na 30 (driven by Cr and INR) - Ascites and HE on exam today #Diarrheal illness #VLADIMIR/HRS #Acute on chronic anemia - R/O tibial compartment bleeding Appears to have severe prerenal injury likely due to ongoing diarrheal illness as well as ? bleeding into leg compartment. Prognosis will mainly guided by her renal function. Recommend aggressive resuscitation with 1 L of LR followed by albumin for at least the next 2 days. In terms of her liver cirrhosis, unfortunately continues to drink, with last drink being this morning. Will need alcohol withdrawal precautions. Recommend stool studies to evaluate the diarrhea and rule out infectious cause. Plan: - LR x 1 litre @ 100cc/h - Albumin 25% 100ml QID x 2 days - Check UA, Urine sodium, creatinine and potassium. - US KUB - US Abd with doppler. DIAGNOSTIC para (pls do NOT take out more than 1L of ascitic fluid with ongoing renal injury). Send fluid for cell count, culture, cytology, albumin and total protein. - Avoid nephrotoxins including diuretics for now - Nephrology consultation - Consider dedicated imaging to r/o bleeding into leg compartments given gross appearance - Although no report of GIB (melena or hematochezia) pls keep her on PPI and Octreotide for now while cause of anemia still being investigated. IV Ceftriaxone for inf prophylaxis. - Stool GI panel and C Diff - Start Rifaximin 550 BID - Thiamine 500mg IV BID x 2 days and then PO 100mg once daily - CIWA protocol - Vit K 10mg IV today and tmrw - High protein diet - Daily MELD labs - Prognosis is overall guarded and driven by renal function. Thank you for allowing me to participate in her care. Will follow. Please reach out for questions or clarifications. Procedures Date of Service Date of Service: 05/17/23
[2023-05-17 13:46] LABS: Erythrocyte Sedimentation Rate 102 MM/HR (0-20)
[2023-05-17 13:57] LABS: Neutrophils Percent Manual 56 % (45-73)
[2023-05-17 13:58] LABS: Lactic Acid 2.2 mmol/L (0.5-2.0)
[2023-05-17 14:00] LABS: Acanthocytes 2+ (3-5) /OIF; Band Neutrophils Percent 42 % (3-5); Burr Cells 3+ (>5) /OIF; Lymphocytes Absolute Manual 0.2 X10*3/uL (1.2-4.9); Lymphocytes Percent Manual 1 % (20-40); Microcytosis 1+ (5-14) /OIF; Monocytes Absolute Manual 0.2 X10*3/uL (0.1-1.2); Monocytes Percent Manual 1 % (2-11); Neutrophils Absolute Manual 16.4 X10*3/uL (2.0-8.3); Platelet Estimate DECREASED (NORMAL); Platelet Morphology Comment NORMAL; RBC Morphology NOTED; Toxic Vacuolation PRESENT
[2023-05-17] MEDS: Pantoprazole Sodium 40 MG/10 ML VIAL IVPUSH (14:00)
[2023-05-17] MEDS: 0.9 % Sodium Chloride 500 ML IV (14:00)
[2023-05-17] MEDS: cefTRIAXone sodium 1 GM in 0.9 % Sodium Chloride 50 ML IV (14:00)
[2023-05-17 14:01] LABS: Schistocytes 1+ (0-2) /OIF
[2023-05-17] MEDS: Lactulose 20 GM/30 ML SOLUTION PO ×2 (14:01→22:48)
[2023-05-17 14:07] LABS: OBS Int Ctl Valid YES; OBS1 POSITIVE (NEGATIVE)
--- NOTE | 2023-05-17 14:12 | ECG_ITS ---
Test Reason : weakness Blood Pressure : / mmHG Vent. Rate : 119 BPM Atrial Rate : 119 BPM P-R Int : 134 ms QRS Dur : 084 ms QT Int : 320 ms P-R-T Axes : 077 -08 074 degrees QTc Int : 450 ms Sinus tachycardia Septal infarct (cited on or before 28-SEP-2022) Abnormal ECG When compared with ECG of 28-SEP-2022 20:51, No significant change was found Referred By: Vashti Barraza Electronically Signed By:SHERIF BLANC
[2023-05-17] MEDS: Octreotide Acetate 100 MCG/ML AMPUL 50 MCG IVPUSH (14:51)
[2023-05-17] MEDS: Albumin Human 25 % 100 ML IV ×2 (14:53→15:48)
[2023-05-17] MEDS: Phytonadione (Vit K1) 10 MG in 0.9 % Sodium Chloride 50 ML 51 MG IV (15:06)
[2023-05-17 15:44] LABS: Reflex Lactate? Lactic Acid Added
--- NOTE | 2023-05-17 16:12 | P.HPHOSP_ITS ---
History of Present Illness Date of Service: 05/17/23 Attending physician on admission: Octavio Pugh Chief Complaint: Ascites, abnormal labs Pt is a 57-year-old female with a PMH significant for?alcoholic/hep C cirrhosis still drinking daily with weekly paracentesis, COPD, HTN, and alcohol use disorder who presents to the ED from short-term stay after showing up to hospital for weekly paracentesis and nursing noting significant swelling and ecchymosis of lower extremities. Patient herself is pleasantly confused, complains of pain in her legs, but denies any known trauma to the area or fall. Patient has long history of alcoholic/hep C cirrhosis who was noncompliant with home medications, regular paracentesis appointments, and follow-up office appointments with GI. Continues to drink daily and has chronically elevated ammonia. Today patient complains of all-over body pain most significant in lower abdomen and lower extremities bilaterally. Reports drinking 3-424 oz beers daily, with last drink this morning at 06:00. Denies history of alcohol withdrawal, but states she does drink some every morning when she wakes up. Also mentions occasionally seeing things that are not there, such as her son. Patient states her son has been helping her out at home, though she later contradicts that by saying she no longer speaks to her sons. Denies any known active bleeding, no hematochezia, melena, hemoptysis, hematemesis. Overall patient is a poor historian, but denies any other acute medical complaints, no chest pain/pressure, palpitations. Denies shortness of breath. ? In the ED pt was afebrile but tachycardic up to 119, vitals otherwise WNL. Labs were significant for leukocytosis of 16.7, H&H 7.6/23.0, platelets 59, % bands 44, BUN 92, creatinine 4.45, lactic acid 2.2, bilirubin 1.3, ammonia 93, and albumin 2.1. Stool positive for occult blood. CXR showed no acute cardiopulmonary process, did find mild deformity of right posterior 7th rib likely healing fracture. X-ray of hips negative for fracture or dislocation. CT of head found no acute intracranial pathology but mild microvascular ischemic changes. CT of cervical spine found no gross fracture or malalignment. Did find moderate age-indeterminate compression deformity of T2 and T3 vertebral body. CT of abdomen and pelvis found cirrhotic liver with portal hypertension, hepatomegaly, and large abdominal pelvic ascites. Also found diffuse wall thickening of the colon and rectum that is out of proportion to surrounding fluid, consider infectious and inflammatory etiologies. EKG demonstrated sinus tachycardia of [address] elevations or depressions. Pt was treated with IVF, pantoprazole, ceftriaxone, lactulose, octreotide, albumin, and vitamin K. Pt will be admitted to the hospital for treatment and further evaluation of acute decompensated alcoholic cirrhosis, acute blood loss anemia, and VLADIMIR. Review of Systems 2 Review of Systems: Difficult to obtain due to patient's mentation Patient mostly complaining of lower abdominal and lower leg pain PMFSH Medical History Alcohol abuse with withdrawal Transaminitis Coagulopathy Acute respiratory failure with hypoxia COPD (chronic obstructive pulmonary disease) Hyperammonemia Thrombocytopenia Alcoholic cirrhosis of liver with ascites Pancytopenia Alcohol abuse Panic attacks 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) Hepatomegaly Microhematuria Polysubstance abuse Hand paresthesia COPD (chronic obstructive pulmonary disease) Anxiety Elevated rheumatoid factor Hepatitis C Family History Father Family history of high blood pressure Mother Alive and well Surgical History History of abdominal paracentesis History of esophagogastroduodenoscopy (EGD) (~02/2017) History of delivery Social History Household Members: Other Household Members Other:: Son Housing: Apartment Do you presently have visiting nurse or other home services: Yes ([facility]) Alcohol intake: current Alcohol intake frequency: 0-2 drinks per day Alcohol type: beer Patient Tobacco Use Status: Current everyday Tobacco user Tobacco use type: Cigarette Cigarettes Per Day: 3 Smoked in Last 30 Days: Yes Patient Interested in Nicotine Replacement: Yes (Patch while in hospital) Patient Given Instructions on How to Stop Smoking: No (Declined) Second Hand Smoke Exposure: No Use of substances other than those prescribed or required for medical reasons: No Currently Displaying Signs/Symptoms of Drug Intoxication Withdrawal: No Any prior treatment program specific to substance use: No Have you been hit, kicked, punched, or otherwise hurt by someone within the past year? If so, by whom?: No Do you feel safe in your current relationship?: No Current Relationship Is there a partner from a previous relationship who is making you feel unsafe now?: No Are you made to feel afraid or neglected: No Spiritual Healthcare Practices: Church Advance Directives: Yes Advance Directives Information Provided: No Advance Directives on File: Yes Advance Directives Date on File: 08/16/20 Do you have thoughts of harming others: None Do you have a plan to hurt others: No Plan Recently lost weight without trying: Unsure How much weight loss: Unsure Eating poorly because of decreased appetite: No Nutrition screen score: 4 Nutrition Risks: Emaciation/Cachexia Patient : No : No Poor oral hygiene: No service: No Current occupational status: unemployed Meds Allergies Allergy/AdvReac Type Severity Reaction Status Date / Time No Known Allergies Allergy Verified 03/29/23 11:22 Active Medications: Current Medications Albumin Human (Kedbumin 25 %) 100 mls @ 100 mls/hr IV Q1H [facility] Stop: 05/17/23 16:59 Last Admin: 05/17/23 15:48 Dose: 100 mls/hr Octreotide Acetate 500 mcg/ (Sodium Chloride) 501 mls @ 50.1 mls/hr IVCONT .Q10H [facility] Pantoprazole Sodium 80 mg/ (Sodium Chloride) 100 mls @ 10 mls/hr IV .Q10H [facility] Home Medications Medication Instructions Recorded Confirmed Last Taken Type buprenorphine 8 mg-naloxone 2 mg 1 film buccal DAILY 02/24/20 05/17/23 10/26/22 History sublingual film (Suboxone) multivitamin 1 tab PO DAILY 02/24/20 05/17/23 05/16/23 History sertraline 50 mg tablet 150 mg PO DAILY@1200 02/24/20 05/17/23 05/16/23 History trazodone 50 mg tablet 100 mg PO BEDTIME 02/24/20 05/17/23 05/16/23 History folic acid 1 mg tablet 1 tab PO QAM 05/15/22 05/17/23 05/16/23 History oxybutynin chloride 5 mg 1 tab PO QAM 05/15/22 05/17/23 05/16/23 History tablet,extended release 24 hr thiamine HCl (vitamin B1) 100 mg 1 tab PO QAM 05/15/22 05/17/23 05/16/23 History tablet baclofen 10 mg tablet 10 mg PO BEDTIME PRN muscle spasm 09/29/22 05/17/23 10/26/22 History ipratropium 20 mcg-albuterol 100 1 puff inhalation QID PRN Wheezing 09/29/22 05/17/23 10/26/22 History mcg/actuation mist for inhalation (Combivent Respimat) furosemide 40 mg tablet 40 mg PO BID@0900,1200 10/02/22 05/17/23 05/16/23 History omeprazole 20 mg capsule,delayed 20 mg PO BIDAC 10/02/22 05/17/23 05/16/23 History release spironolactone 25 mg tablet 100 mg PO DAILY 10/02/22 05/17/23 05/16/23 History albuterol sulfate 90 mcg/actuation 2 puff inhalation Q4-6H PRN 05/17/23 05/17/23 Unknown History aerosol inhaler (Ventolin HFA) Wheezing calcium carbonate 500 mg-vitamin 2 tab PO QPM 05/17/23 05/17/23 05/16/23 History D3 10 mcg (400 unit) tablet (Oyster Shell Calcium-Vitamin D3) docusate sodium 100 mg capsule 100 mg PO QAM 05/17/23 05/17/23 05/16/23 History fluticasone propionate 50 1 spray intranasal DAILY PRN 05/17/23 05/17/23 Unknown History mcg/actuation nasal Congestion spray,suspension lactulose 20 gram/30 mL oral 20 g PO BID PRN Constipation 05/17/23 05/17/23 Unknown History solution mometasone 200 mcg/actuation HFA 1 puff inhalation BID 05/17/23 05/17/23 05/16/23 History aerosol inhaler (Asmanex HFA) Physical Exam 2 Vital Signs and Narrative: Vital Signs: Last Vital Signs Temp 97.8 F 05/17/23 15:46 Pulse 116 H 05/17/23 15:46 Resp 16 05/17/23 15:46 BP 117/64 05/17/23 15:46 Pulse Ox 100 05/17/23 15:04 O2 Del Method Nasal Cannula 05/17/23 15:04 O2 Flow Rate 4 05/17/23 15:04 BMI result Body Mass Index 52.1 Constitutional: Alert though confused, answers most questions appropriately. Frail-looking, cachectic. In no acute distress. Eyes: Pupils are equal, round, and reactive to light. Ear, Nose, and Throat: Oropharynx clear, mucous membranes moist. Ears and nose without deformities. Trachea midline. Poor dentition. Respiratory: Clear to auscultation bilaterally. No wheezing, rales, or rhonchi. Cardiovascular: S1, S2 regular. No murmurs, rubs, or gallops. Gastrointestinal: Abdomen firm, significantly distended, non-tender, with ecchymotic stretch hidalgo on the sides particularly on the left. See picture below. Neurologic: Cranial nerves II-XII are grossly intact bilaterally. No focal neurological deficits. Moves all extremities spontaneously. Skin: Warm, dry. Musculoskeletal: No cyanosis or clubbing. Extremities: 1-2+ bilateral pitting lower leg edema with significant areas ecchymosis, worse on left hip and left lower leg. Nonblanching. Diffusely warm and tender to the touch. As pictured below. Psychiatric: Pleasantly confused. Results Labs 05/17/23 12:35 05/17/23 12:34 Labs: Laboratory Results - last 24 hr 05/17/23 05/17/23 05/17/23 12:34 12:35 13:39 MCV 86.5 MCH 28.6 MCHC 33.0 RDW 19.2 H Plt Count 59 L MPV 10.8 Immature Gran % (Auto) Cancelled Neut % (Auto) Cancelled Lymph % (Auto) Cancelled [place] % (Auto) Cancelled Eos % (Auto) Cancelled Baso % (Auto) Cancelled Lymph # (Auto) Cancelled [place] # (Auto) Cancelled Eos # (Auto) Cancelled Baso # (Auto) Cancelled Abs Immat Gran (auto) Cancelled Absolute Neuts (auto) Cancelled Absolute Nucleated RBC 0.000 Nucleated RBC % (auto) 0.0 Neutrophils % (Manual) 56 Band Neutrophils % 42 H Lymphocytes % (Manual) 1 L Monocytes % (Manual) 1 L Abs Neuts (Manual) 16.4 H Lymphocytes # (Manual) 0.2 L Monocytes # (Manual) 0.2 Toxic Vacuolation PRESENT Platelet Estimate DECREASED Plt Morphology Comment NORMAL RBC Morphology NOTED Microcytosis 1+ (5-14) Dora Cells 3+ (>5) Acanthocytes (Spur) 2+ (3-5) Schistocytes 1+ (0-2) ESR 102 H PT 27.8 H D INR 2.3 H Anion Gap 15 Estim Creat Clear Calc 16.2 Estimated GFR 10 Random Glucose 68 Lactic Acid 2.2 H* Calcium 8.4 Total Bilirubin 1.3 H AST 30 ALT 15 Alkaline Phosphatase 102 Ammonia 93 H Total Creatine Kinase 47 Total Protein 6.3 L Albumin 2.1 L Lipase 17 Stool Occult Blood Ethyl Alcohol < 10 Blood Type O Positive Antibody Screen NEGATIVE Crossmatch See Detail 05/17/23 13:44 MCV MCH MCHC RDW Plt Count MPV Immature Gran % (Auto) Neut % (Auto) Lymph % (Auto) [place] % (Auto) Eos % (Auto) Baso % (Auto) Lymph # (Auto) [place] # (Auto) Eos # (Auto) Baso # (Auto) Abs Immat Gran (auto) Absolute Neuts (auto) Absolute Nucleated RBC Nucleated RBC % (auto) Neutrophils % (Manual) Band Neutrophils % Lymphocytes % (Manual) Monocytes % (Manual) Abs Neuts (Manual) Lymphocytes # (Manual) Monocytes # (Manual) Toxic Vacuolation Platelet Estimate Plt Morphology Comment RBC Morphology Microcytosis [place] Cells Acanthocytes (Spur) Schistocytes ESR PT INR Anion Gap Estim Creat Clear Calc Estimated GFR Random Glucose Lactic Acid Calcium Total Bilirubin AST ALT Alkaline Phosphatase Ammonia Total Creatine Kinase Total Protein Albumin Lipase Stool Occult Blood POSITIVE Ethyl Alcohol Blood Type Antibody Screen Crossmatch Imaging Radiologist's Impressions: Impressions Hip/Pelvis X-Ray 05/17/23 11:42 IMPRESSION: No left hip fracture or dislocation. Venous Duplex 05/17/23 12:15 IMPRESSION: 1. No DVT demonstrated in the bilateral lower extremities. 2. Complex cystic area in the left groin with vascular flow. This is not the typical appearance of a lymph node. This of uncertain etiology. Cervical Spine CT 05/17/23 12:56 IMPRESSION: - The study is limited secondary to motion artifact. - Accounting for artifact, there is no gross cervical spine fracture. Alignment is maintained. - There is a moderate, age indeterminant compression deformity of the superior endplate of the T3 vertebral body. There is a mild age indeterminant compression deformity of the anterior aspect of the superior endplate of the T2 vertebral body. Fleischner guidelines were followed. Findings were discussed with Vashti Patricio at 2:13 PM on 05/17/2023. Head CT 05/17/23 12:56 IMPRESSION: No acute intracranial pathology. Mild microvascular ischemic change. Abdomen/Pelvis CT 05/17/23 13:23 IMPRESSION: Cirrhotic liver. Findings of portal hypertension including hepatomegaly and large abdominopelvic ascites. Diffuse wall thickening of the colon and rectum. The degree of wall thickening is out of proportion to the surrounding fluid. Infectious and inflammatory etiologies should be considered. Cholelithiasis. Anasarca. Chest X-Ray 05/17/23 15:05 IMPRESSION: 1. Hypoexpanded lungs without acute process. 2. Mild deformity right posterior seventh rib likely healing fracture. Assessment and Plan (1) Ascites: Qualifiers: Ascites type: due to alcoholic cirrhosis Qualified Code(s): K70.31 - Alcoholic cirrhosis of liver with ascites Status: Acute (2) Acute kidney injury: Status: Acute Plan Pt is a 57-year-old female with a PMH significant for?alcoholic/hep C cirrhosis still drinking daily with weekly paracentesis, COPD, HTN, and alcohol use disorder who presents to the ED from short-term stay after showing up to hospital for weekly paracentesis and nursing noting significant swelling and ecchymosis of lower extremities. Pt will be admitted to the hospital for treatment and further evaluation of acute decompensated alcoholic cirrhosis, acute blood loss anemia, and VLADIMIR. Acute on chronic decompensated alcoholic cirrhosis Patient with transaminitis, ascites, 1-2+ pitting lower leg edema bilaterally Likely secondary to chronic alcohol abuse Thiamine, folic acid, multivitamin Ultrasound-guided diagnostic paracentesis; not to take out more than 1L of ascitic fluid with ongoing renal injury, per GI Send ascitic fluid for cell count, culture, cytology, albumin, and total protein. GI consult Patient strongly encouraged to keep abstaining from alcohol Daily MELD labs Acute blood loss anemia H&H 7.6/23.0, down from 9.0/27.2 earlier in the day Possibly from GI source: Patient denies hematemesis, hemoptysis, melena, hematochezia, but stool positive for occult blood Patient transfused 1 unit PRBCs in ED Patient placed on octreotide drip in ED, will continue Patient placed on Protonix IV drip in ED, will continue Recevied Vit K 10mg IV in ED, will give another 10mg IV tomorrow Consider dedicated imaging to r/o bleeding into leg compartments given appearance of legs GI consult Follow CBC Acute hepatic encephalopathy Pt confused, unclear for how long Ammonia 93 at time of presentation Likely secondary to medication noncompliance Will treat with lactulose 20gm bid, continue home Rifaximin 550 BID Follow ammonia Monitor mentation Question of SBP with sepsis Ct of abd/pelvis found diffuse wall thickening of the colon and rectum possibly infectious vs inflammatory Pt meets sepsis criteria: Tachycardia, leukocytosis, bandemia; lactic acid initially 2.2 with repeat 1.8 after fluid Patient given IVF and started on broad-spectrum antibiotics in the ED Will continue with ceftriaxone, started 05/17/2023 Follow ascitic fluid labs VLADIMIR Likely hepatorenal Will place [place] Will give 1L LR Check UA, Urine sodium, creatinine and potassium Hold nephrotoxins including diuretics Nephrology consult Hypoalbumenia Albumin 2.1 at time of presentaton Albumin 25% 100ml QID x 2 days Follow Albumin Alcohol use disorder Pt reports still drinking at least 6 beers a day Monitor [facility] Addiction medicine consult COPD Not in acute exacerbation Continue home inhalers Full Code Attending:?Dr. Pugh DVT Prophylaxis: Pneumatic boots Pt will require a hospitalization of at least two nights for treatment of?acute hepatic encephalpathy, acute anemia, VLADIMIR, and likely SBP. Pt will require hospitalization for treatment with multiple IV medications, including octreotide and Protonix drips, IV antibiotics, and vitamin K, as well as specialist consultation, additional diagnostic procedures, and close monitoring of labs. Quality Stroke Does the patient have a stroke diagnosis?: No VTE Prior VTE?: No VTE Risk Level:: Medical - moderate - high VTE Device Contraindication: N/A - Device Ordered VTE Drug Contraindication: Treatment Not Indicated
[2023-05-17] MEDS: Octreotide Acetate 500 MCG in 0.9 % Sodium Chloride 500 ML 50.1 MCG IVCONT (16:22)
[2023-05-17] MEDS: Pantoprazole Sodium 80 MG in 0.9 % Sodium Chloride 80 ML 10 MG IV (16:49)
[2023-05-17 17:00] LABS: Appearance Urine Cloudy; Color Urine Yellow; Glucose Urine UA Negative (Negative); Leukocyte Esterase Urine Trace (Negative); Nitrite Urine Negative (Negative); Specific Gravity - Urine 1.015 (1.005-1.025); UMIC TRIGGER UACC YES; Urine Blood Large (3+) (Negative); Urine Ketones Negative (Negative); Urine Protein 100 (2+) mg/dL (Neg-Trace)
[2023-05-17 17:04] LABS: Bacteria Urine None Seen (None Seen); Hyaline Casts Urine 0-2 /LPF (0-2); WBC Urine 0-5 /HPF (0-5)
--- NOTE | 2023-05-17 17:24 | MHC.CM.ED ---
Addendum entered by Liliana Waddell 05/17/23 18:12: Pt unwilling to participate in THRIVE assessment at this time. Addendum entered by Liliana Waddell 05/17/23 17:51: CM met with patient. Pt is lethargic, but easily arousable. A&Ox3. Pt is very ill in appearance, cachectic, and jaundiced. Pt has a hx of alcoholic/hep C Cirrhosis and receives weekly paracentesis. Pt actively drinks. Pt lives with her son, Weston. He is her main caregiver. Weston is her HCP ([phone]) and Issac is HCP #2 ([phone]). He lives downstairs in her apartment building. Pt uses a cane at home. Pt has no services, but did have [facility] last year after an admission. Pt is admitted, and is waiting for a bed assignment. Pt refuses to discuss discharge planning at this time. States she feels to ill and will talk about her discharge plan later. CM will follow for discharge planning. Original Note: Pt is sleeping. Unable to meet with CM at this time. Pt is admitted. No bed assignment yet. Will attempted to meet with patient in regards to discharge planning when patient wakes.
--- NOTE | 2023-05-17 17:52 | PHA.MEDREC ---
Pharmacy Consult ? Medication Reconciliation Pharmacy has completed the medication reconciliation. Confirmed medications with med list faxed from [facility] and interview with patient, Patient was not a good historian. Used claim history and list. Patient reports that she is only taking Lactulose PRN.
[2023-05-17 18:36] LABS: ~Lactic Acid-LAB USE ONLY 1.8 mmol/L (0.5-2.0)
[2023-05-17] MEDS: Calcium + Vitamin D 250 MG TABLET 1000 MG PO (22:47)
[2023-05-17] MEDS: rifAXIMin 550 MG TABLET PO (22:48)
[2023-05-17] MEDS: Thiamine HCL 500 MG in 0.9 % Sodium Chloride 100 ML 210 MG IV (23:58)
[2023-05-18] VITALS (8 sets, daily range): BP systolic 98–140; BP diastolic 50–75; PULSE 98–105; RESP 14–20; TEMP 36.2–37; O2SAT 95–100; BMI 24.8
[2023-05-18] MEDS: traZODone HCL 100 MG TABLET PO (00:07)
[2023-05-18] MEDS: Lactated Ringers 1,000 ML 100 ML IVCONT (00:07)
[2023-05-18] MEDS: Pantoprazole Sodium 80 MG in 0.9 % Sodium Chloride 80 ML 10 MG IV ×3 (00:15→22:21)
[2023-05-18] MEDS: Octreotide Acetate 500 MCG in 0.9 % Sodium Chloride 500 ML 50.1 MCG IVCONT ×3 (02:08→22:58)
[2023-05-18 03:40] LABS: Creatinine Urine 65.26 mg/dL; Potassium Urine Random 25.8 mmol/L
[2023-05-18 04:23] LABS: CDiff Gene PCR NEGATIVE (Negative)
[2023-05-18 06:10] LABS: Hematocrit 22.1 % (37.0-47.0); Hemoglobin 7.2 g/dl (12.0-16.0); Mean Corpuscular HGB Conc 32.6 g/dl (31.0-35.0); Mean Corpuscular Hemoglobin 28.8 pg (27.0-33.0); Mean Corpuscular Volume 88.4 fL (80.0-98.0); Mean Platelet Volume 12.5 fL (9.4-12.3); Red Cell Distribution Width 18.3 % (11.0-16.0); White Blood Count 12.3 X10*3/uL (4.8-10.8)
[2023-05-18 06:12] LABS: Platelet Count 40 X10*3/uL (160-400)
[2023-05-18 06:15] LABS: INTERNATIONAL NORM RATIO 2.1 (0.9-1.1)
[2023-05-18 06:33] LABS: Alanine Aminotransferase 9 U/L (0-31); Albumin Level 2.4 g/dL (3.5-5.0); Alkaline Phosphatase 70 U/L (39-117); Anion Gap 14 (12-20); Aspartate Amino Transferase 17 U/L (5-31); Bilirubin Total 1.5 mg/dL (0.0-1.0); Blood Urea Nitrogen 94 mg/dL (9-16); Carbon Dioxide 16 mmol/L (22-29); Chloride 112 mmol/L (96-108); Estimated Glomerular Filt Rate 10; Glucose Random 128 mg/dL (60-115); Magnesium 1.9 mg/dL (1.6-2.6); Sodium 138 mmol/L (135-145); Total Protein 5.5 g/dL (6.5-8.0)
--- NOTE | 2023-05-18 07:40 | P.CONNP_ITS ---
History of Present Illness Reason for Consult Consult date: 05/18/23 Chief Complaint Chief complaint: VLADIMIR,Ascites History of Present Illness Narrative: 57 yo female with PMH of COPD, HTN, ETOH / hep C cirrhosis still drinking not on transplant list, weekly paracentesis, hepatic encephalopathy, non compliant with meds and gi follow up was going to have a paracentesis today when short stay RN noted bilateral leg swelling which is pretty baseline but significant bruising on the legs. The patient thinks she might have bumped her leg when she was walking the other day. She admits to drinking. She is confused. In the ER patient was noted to be in VLADIMIR and hence the consult. 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) Hepatomegaly Microhematuria Polysubstance abuse Hand paresthesia COPD (chronic obstructive pulmonary disease) Anxiety Elevated rheumatoid factor Hepatitis C Family History Family History Father Family history of high blood pressure Mother Alive and well Surgical History Surgical History History of abdominal paracentesis History of esophagogastroduodenoscopy (EGD) (~02/2017) History of delivery Social History Social History Household Members: Other Household Members Other:: Son Housing: Apartment Do you presently have visiting nurse or other home services: Yes ([facility]) Alcohol intake: current Alcohol intake frequency: 0-2 drinks per day Alcohol type: beer Patient Tobacco Use Status: Current everyday Tobacco user Tobacco use type: Cigarette Cigarettes Per Day: 3 Smoked in Last 30 Days: Yes Patient Interested in Nicotine Replacement: Yes (Patch while in hospital) Patient Given Instructions on How to Stop Smoking: No (Declined) Second Hand Smoke Exposure: No Use of substances other than those prescribed or required for medical reasons: No Currently Displaying Signs/Symptoms of Drug Intoxication Withdrawal: No Any prior treatment program specific to substance use: No Have you been hit, kicked, punched, or otherwise hurt by someone within the past year? If so, by whom?: No Do you feel safe in your current relationship?: No Current Relationship Is there a partner from a previous relationship who is making you feel unsafe now?: No Are you made to feel afraid or neglected: No Spiritual Healthcare Practices: Mosque Advance Directives: Yes Advance Directives Information Provided: No Advance Directives on File: Yes Advance Directives Date on File: 08/16/20 Do you have thoughts of harming others: None Do you have a plan to hurt others: No Plan Recently lost weight without trying: Unsure How much weight loss: Unsure Eating poorly because of decreased appetite: No Nutrition screen score: 4 Nutrition Risks: Emaciation/Cachexia Patient : No : No Poor oral hygiene: No service: No Current occupational status: unemployed Meds Allergies Allergy/AdvReac Type Severity Reaction Status Date / Time No Known Allergies Allergy Verified 03/29/23 11:22 Active Medications: Current Medications Albuterol Sulfate (Albuterol Sulfate 90 Mcg 8 Gm Inhaler) 2 puff INHALE Q4H PRN PRN Reason: Wheezing Albuterol/Ipratropium (Albuterol/Iprat 2.5/0.5mg 3 Ml Ampul.Neb) 3 ml INHALE QID PRN PRN Reason: Wheezing Baclofen (Baclofen 10 Mg Tablet) 10 mg PO BEDTIME PRN PRN Reason: muscle spasm Benzonatate (Benzonatate 100 Mg Capsule) 100 mg PO TID PRN PRN Reason: Cough Buprenorphine/Naloxone (Buprenorphine/Naloxone 8/2 Mg Film) 1 film BUCCAL DAILY [facility] [place] Calcium Carbonate/Cholecalciferol (Calcium + Vitamin D 250 Mg Tablet) 1,000 mg PO BEDTIME [facility] [place] Last Admin: 05/17/23 22:47 Dose: 1,000 mg Docusate Sodium (Docusate Sodium 100 Mg Capsule) 100 mg PO DAILY PRN PRN Reason: Constipation Docusate Sodium (Docusate Sodium 100 Mg Capsule) 100 mg PO DAILY [facility] [place] Fluticasone Propionate (Fluticasone Propionate 250 Mcg Blst.W.Dev) 1 puff INHALE RBID [facility] [place] Last Admin: 05/17/23 22:04 Dose: Not Given Fluticasone Propionate (Fluticasone Propionate Nasal 16 Gm [place]) 1 spray NOSTRIL-B DAILY PRN PRN Reason: Congestion Folic Acid (Folic Acid 1 Mg Tablet) 1 mg PO DAILY [facility] [place] Octreotide Acetate 500 mcg/ (Sodium Chloride) 501 mls @ 50.1 mls/hr IVCONT .Q10H [facility] [place] Last Admin: 05/18/23 02:08 Dose: 50 mcg/hr, 50.1 mls/hr Pantoprazole Sodium 80 mg/ (Sodium Chloride) 100 mls @ 10 mls/hr IV .Q10H [facility] [place] Last Admin: 05/18/23 00:15 Dose: 8 mg/hr, 10 mls/hr Ceftriaxone Sodium 1 gm/ (Sodium Chloride) 50 mls @ 100 mls/hr IV Q24H [facility] [place] Thiamine HCl 500 mg/ Sodium (Chloride) 105 mls @ 210 mls/hr IV Q12H [facility] [place] Stop: 05/19/23 22:59 Last Infusion: 05/18/23 00:30 Dose: Infused Phytonadione 10 mg/ Sodium (Chloride) 51 mls @ 51 mls/hr IV ONCE ONE Stop: 05/18/23 09:59 Lactated Ringer's (Lr) 1,000 mls @ 100 mls/hr IVCONT .Q10H [facility] [place] Stop: 05/18/23 09:44 Last Admin: 05/18/23 00:07 Dose: 100 mls/hr Lactulose (Lactulose 20 Gm/30 Ml Solution) 20 gm PO BID [facility] [place] Last Admin: 05/17/23 22:48 Dose: 20 gm Melatonin (Melatonin 3 Mg Tablet) 6 mg PO BEDTIME PRN PRN Reason: Insomnia Multivitamins/Vitamin C (Multivitamin Tablet) 1 tab PO DAILY [facility] [place] Ondansetron HCl (Ondansetron Hcl 4 Mg/2 Ml Vial) 4 mg IVPUSH Q8H PRN PRN Reason: Nausea and Vomiting Oxybutynin Chloride (Oxybutynin Chloride Er 5 Mg Tab.Er.24) 5 mg PO DAILY [facility] [place] Rifaximin (Rifaximin 550 Mg Tablet) 550 mg PO BID [facility] [place] Last Admin: 05/17/23 22:48 Dose: 550 mg Sertraline HCl (Sertraline Hcl 50 Mg Tablet) 150 mg PO DAILY@1200 [facility] [place] Sodium Chloride (0.9 % Sodium Chloride Flush 3 Ml Syringe) 3 ml IVFLUSH QSHIFT [facility] [place] Last Admin: 05/18/23 00:17 Dose: Not Given Thiamine HCl (Thiamine Hcl 100 Mg Tablet) 100 mg PO DAILY [facility] [place] Trazodone HCl (Trazodone Hcl 100 Mg Tablet) 100 mg PO BEDTIME [facility] [place] Last Admin: 05/18/23 00:07 Dose: 100 mg Vitamin D (Cholecalciferol (Vitamin D3) 25 Mcg Tablet) 50 mcg PO DAILY [facility] [place] Home Medications Medication Instructions Recorded Confirmed Last Taken Type buprenorphine 8 mg-naloxone 2 mg 1 film buccal DAILY 02/24/20 05/17/23 10/26/22 History sublingual film (Suboxone) multivitamin 1 tab PO DAILY 02/24/20 05/17/23 05/16/23 History sertraline 50 mg tablet 150 mg PO DAILY@1200 02/24/20 05/17/23 05/16/23 History trazodone 50 mg tablet 100 mg PO BEDTIME 02/24/20 05/17/23 05/16/23 History folic acid 1 mg tablet 1 tab PO QAM 05/15/22 05/17/23 05/16/23 History oxybutynin chloride 5 mg 1 tab PO QAM 05/15/22 05/17/23 05/16/23 History tablet,extended release 24 hr thiamine HCl (vitamin B1) 100 mg 1 tab PO QAM 05/15/22 05/17/23 05/16/23 History tablet baclofen 10 mg tablet 10 mg PO BEDTIME PRN muscle spasm 09/29/22 05/17/23 10/26/22 History ipratropium 20 mcg-albuterol 100 1 puff inhalation QID PRN Wheezing 09/29/22 05/17/23 10/26/22 History mcg/actuation mist for inhalation (Combivent Respimat) furosemide 40 mg tablet 40 mg PO BID@0900,1200 10/02/22 05/17/23 05/16/23 History omeprazole 20 mg capsule,delayed 20 mg PO BIDAC 10/02/22 05/17/23 05/16/23 History release spironolactone 25 mg tablet 100 mg PO DAILY 10/02/22 05/17/23 05/16/23 History albuterol sulfate 90 mcg/actuation 2 puff inhalation Q4-6H PRN 05/17/23 05/17/23 Unknown History aerosol inhaler (Ventolin HFA) Wheezing calcium carbonate 500 mg-vitamin 2 tab PO QPM 05/17/23 05/17/23 05/16/23 History D3 10 mcg (400 unit) tablet (Oyster Shell Calcium-Vitamin D3) docusate sodium 100 mg capsule 100 mg PO QAM 05/17/23 05/17/23 05/16/23 History fluticasone propionate 50 1 spray intranasal DAILY PRN 05/17/23 05/17/23 Unknown History mcg/actuation nasal Congestion spray,suspension lactulose 20 gram/30 mL oral 20 g PO BID PRN Constipation 05/17/23 05/17/23 Unknown History solution mometasone 200 mcg/actuation HFA 1 puff inhalation BID 05/17/23 05/17/23 05/16/23 History aerosol inhaler (Asmanex HFA) Physical Exam Vital Signs: Last Vital Signs Temp 98.3 F 05/18/23 07:12 Pulse 103 H 05/18/23 07:12 Resp 18 05/18/23 07:12 BP 115/62 05/18/23 07:12 Pulse Ox 95 05/18/23 07:12 O2 Del Method Nasal Cannula 05/18/23 07:12 O2 Flow Rate 3 05/18/23 07:12 BMI result Body Mass Index 24.8 pt is cachectic, fatigued diffuse purpuric rashes in skin confusion improving cvs: s1s2 Rs; cta ABd; soft, distended, ascites ++ Extremities: pedal edema 1+ Results Lab Results 05/18/23 05:46 05/18/23 05:46 Lab results: Chemistry 05/17/23 05/18/23 12:34 05:46 Sodium 136 138 Potassium 4.0 4.0 Carbon Dioxide 17 L 16 L BUN 92 H 94 H Creatinine 4.45 H* 4.36 H* Calcium 8.4 8.0 L Hematology 05/17/23 05/18/23 12:35 05:46 WBC 16.7 H 12.3 H Hgb 7.6 L 7.2 L Plt Count 59 L 40 L D Urinalysis 05/17/23 16:53 Urine Color Yellow Urine Appearance Cloudy Urine pH 5.0 Ur Specific [place] 1.015 Urine Protein 100 (2+) H Urine Glucose (UA) Negative Urine Ketones Negative Urine Blood Large (3+) H Urine Nitrite Negative Ur Leukocyte Esterase Trace H Urine RBC 11-20 H Urine WBC 0-5 Ur Squamous Epith Cells 3-5 Hyaline Casts 0-2 Urine Studies 05/18/23 02:23 Urine Creatinine 65.26 Assessment and Plan (1) Ascites: Qualifiers: Ascites type: due to alcoholic cirrhosis Qualified Code(s): K70.31 - Alcoholic cirrhosis of liver with ascites Status: Acute (2) Acute on chronic renal failure: Qualifiers: Acute renal failure type: unspecified Chronic kidney disease stage: u nspecified stage Qualified Code(s): N17.9 - Acute kidney failure, unspecified; N18.9 - Chronic kidney disease, unspecified Status: Acute Plan 57 yo female with PMH of COPD, HTN, ETOH / hep C cirrhosis still drinking not on transplant list, weekly paracentesis, hepatic encephalopathy, admitted with VLADIMIR in the setting of liver cirrhosis VLADIMIR oliguric Cirrhosis Fena 0.96% Alli HRS-VLADIMIR now leading to ATN probably underlying HRS-CKD h/o hepatitis C urine suggests microscopic hematuria proteinuria Recommendations No emergent indication for dialysis today will recheck ua and urine protein to rule out trauma related hematuria from placement of kay Albumin infusion 25 g tid midodrine 10mg tid octreotide cont infusion blood transfusion for Hb < 7 paracentesis not more than 2 liters , can drain the rest next week once renal function more stable follow kidney function, uop - pt has kay and electrolytes Discussed with hospitalist If uop declines further or cr worsens - Bumex 2mg iv bid as she is total body volume overloaded with elevated jvd. Procedures Date of Service Date of Service: 05/18/23
--- NOTE | 2023-05-18 08:51 | P.PNIM_ITS ---
Subjective Subjective Date of Service: 05/18/23 Interval History: abd pain and distension Physical Exam 2 Vital Signs: Vital Signs: Last Vital Signs Temp 98.3 F 05/18/23 07:12 Pulse 103 H 05/18/23 07:12 Resp 18 05/18/23 07:12 BP 115/62 05/18/23 07:12 Pulse Ox 95 05/18/23 07:12 O2 Del Method Nasal Cannula 05/18/23 07:12 O2 Flow Rate 3 05/18/23 07:12 BMI result Body Mass Index 24.8 alert, ill appearing, abd distended, diffuse echymosis Objective Data Active Medications Albuterol Sulfate (Albuterol Sulfate 90 Mcg 8 Gm Inhaler) 2 puff INHALE Q4H PRN PRN Reason: Wheezing Albuterol/Ipratropium (Albuterol/Iprat 2.5/0.5mg 3 Ml Ampul.Neb) 3 ml INHALE QID PRN PRN Reason: Wheezing Baclofen (Baclofen 10 Mg Tablet) 10 mg PO BEDTIME PRN PRN Reason: muscle spasm Benzonatate (Benzonatate 100 Mg Capsule) 100 mg PO TID PRN PRN Reason: Cough Buprenorphine/Naloxone (Buprenorphine/Naloxone 8/2 Mg Film) 1 film BUCCAL DAILY [facility] Calcium Carbonate/Cholecalciferol (Calcium + Vitamin D 250 Mg Tablet) 1,000 mg PO BEDTIME [facility] Last Admin: 05/17/23 22:47 Dose: 1,000 mg Documented By: AMRITA Docusate Sodium (Docusate Sodium 100 Mg Capsule) 100 mg PO DAILY PRN PRN Reason: Constipation Docusate Sodium (Docusate Sodium 100 Mg Capsule) 100 mg PO DAILY [facility] Fluticasone Propionate (Fluticasone Propionate 250 Mcg Blst.W.Dev) 1 puff INHALE RBID [facility] Last Admin: 05/17/23 22:04 Dose: Not Given Documented By: LOUIS Non-Admin Reason: Med Not Available Fluticasone Propionate (Fluticasone Propionate Nasal 16 Gm [place]) 1 spray NOSTRIL-B DAILY PRN PRN Reason: Congestion Folic Acid (Folic Acid 1 Mg Tablet) 1 mg PO DAILY [facility] Octreotide Acetate 500 mcg/ (Sodium Chloride) 501 mls @ 50.1 mls/hr IVCONT .Q10H [facility] Last Admin: 05/18/23 02:08 Dose: 50 mcg/hr, 50.1 mls/hr Documented By: RAJNI Pantoprazole Sodium 80 mg/ (Sodium Chloride) 100 mls @ 10 mls/hr IV .Q10H [facility] Last Admin: 05/18/23 00:15 Dose: 8 mg/hr, 10 mls/hr Documented By: RAJNI Ceftriaxone Sodium 1 gm/ (Sodium Chloride) 50 mls @ 100 mls/hr IV Q24H [facility] Thiamine HCl 500 mg/ Sodium (Chloride) 105 mls @ 210 mls/hr IV Q12H [facility] Stop: 05/19/23 22:59 Last Infusion: 05/18/23 00:30 Dose: Infused Documented By: RAJNI Phytonadione 10 mg/ Sodium (Chloride) 51 mls @ 51 mls/hr IV ONCE ONE Stop: 05/18/23 09:59 Lactated Ringer's (Lr) 1,000 mls @ 100 mls/hr IVCONT .Q10H [facility] Stop: 05/18/23 09:44 Last Admin: 05/18/23 00:07 Dose: 100 mls/hr Documented By: RAJNI Lactulose (Lactulose 20 Gm/30 Ml Solution) 20 gm PO BID [facility] Last Admin: 05/17/23 22:48 Dose: 20 gm Documented By: AMRITA Melatonin (Melatonin 3 Mg Tablet) 6 mg PO BEDTIME PRN PRN Reason: Insomnia Multivitamins/Vitamin C (Multivitamin Tablet) 1 tab PO DAILY [facility] Ondansetron HCl (Ondansetron Hcl 4 Mg/2 Ml Vial) 4 mg IVPUSH Q8H PRN PRN Reason: Nausea and Vomiting Oxybutynin Chloride (Oxybutynin Chloride Er 5 Mg Tab.Er.24) 5 mg PO DAILY [facility] Rifaximin (Rifaximin 550 Mg Tablet) 550 mg PO BID [facility] Last Admin: 05/17/23 22:48 Dose: 550 mg Documented By: AMRITA Sertraline HCl (Sertraline Hcl 50 Mg Tablet) 150 mg PO DAILY@1200 [facility] Sodium Chloride (0.9 % Sodium Chloride Flush 3 Ml Syringe) 3 ml IVFLUSH QSHIFT [facility] Last Admin: 05/18/23 00:17 Dose: Not Given Documented By: RAJNI Non-Admin Reason: IV Running Thiamine HCl (Thiamine Hcl 100 Mg Tablet) 100 mg PO DAILY [facility] Trazodone HCl (Trazodone Hcl 100 Mg Tablet) 100 mg PO BEDTIME [facility] Last Admin: 05/18/23 00:07 Dose: 100 mg Documented By: RAJNI Vitamin D (Cholecalciferol (Vitamin D3) 25 Mcg Tablet) 50 mcg PO DAILY [facility] Labs 05/18/23 05:46 05/18/23 05:46 Labs: Laboratory Results - last 24 hr 05/17/23 05/17/23 05/17/23 12:34 12:35 13:39 MCV 86.5 MCH 28.6 MCHC 33.0 RDW 19.2 H Plt Count 59 L MPV 10.8 Immature Gran % (Auto) Cancelled Neut % (Auto) Cancelled Lymph % (Auto) Cancelled [place] % (Auto) Cancelled Eos % (Auto) Cancelled Baso % (Auto) Cancelled Lymph # (Auto) Cancelled [place] # (Auto) Cancelled Eos # (Auto) Cancelled Baso # (Auto) Cancelled Abs Immat Gran (auto) Cancelled Absolute Neuts (auto) Cancelled Absolute Nucleated RBC 0.000 Nucleated RBC % (auto) 0.0 Neutrophils % (Manual) 56 Band Neutrophils % 42 H Lymphocytes % (Manual) 1 L Monocytes % (Manual) 1 L Abs Neuts (Manual) 16.4 H Lymphocytes # (Manual) 0.2 L Monocytes # (Manual) 0.2 Toxic Vacuolation PRESENT Platelet Estimate DECREASED Plt Morphology Comment NORMAL RBC Morphology NOTED Microcytosis 1+ (5-14) [place] Cells 3+ (>5) Acanthocytes (Spur) 2+ (3-5) Schistocytes 1+ (0-2) ESR 102 H PT 27.8 H D INR 2.3 H Anion Gap 15 Estim Creat Clear Calc 16.2 Estimated GFR 10 Random Glucose 68 Lactic Acid 2.2 H* Lactic Acid F/U @ 2Hr Calcium 8.4 Magnesium Total Bilirubin 1.3 H AST 30 ALT 15 Alkaline Phosphatase 102 Ammonia 93 H Total Creatine Kinase 47 Total Protein 6.3 L Albumin 2.1 L Lipase 17 Urine Color Urine Appearance Urine pH Ur Specific [place] Urine Protein Urine Glucose (UA) Urine Ketones Urine Blood Urine Nitrite Ur Leukocyte Esterase Urine RBC Urine WBC Ur Squamous Epith Cells Urine Bacteria Hyaline Casts Ur Random Sodium Ur Random Potassium Urine Creatinine Stool Occult Blood Ethyl Alcohol < 10 C. difficile Tox B Gene Blood Type O Positive Antibody Screen NEGATIVE Crossmatch See Detail 05/17/23 05/17/23 05/17/23 13:44 16:53 18:18 MCV MCH MCHC RDW Plt Count MPV Immature Gran % (Auto) Neut % (Auto) Lymph % (Auto) [place] % (Auto) Eos % (Auto) Baso % (Auto) Lymph # (Auto) [place] # (Auto) Eos # (Auto) Baso # (Auto) Abs Immat Gran (auto) Absolute Neuts (auto) Absolute Nucleated RBC Nucleated RBC % (auto) Neutrophils % (Manual) Band Neutrophils % Lymphocytes % (Manual) Monocytes % (Manual) Abs Neuts (Manual) Lymphocytes # (Manual) Monocytes # (Manual) Toxic Vacuolation Platelet Estimate Plt Morphology Comment RBC Morphology Microcytosis [place] Cells Acanthocytes (Spur) Schistocytes ESR PT INR Anion Gap Estim Creat Clear Calc Estimated GFR Random Glucose Lactic Acid Lactic Acid F/U @ 2Hr 1.8 Calcium Magnesium Total Bilirubin AST ALT Alkaline Phosphatase Ammonia Total Creatine Kinase Total Protein Albumin Lipase Urine Color Yellow Urine Appearance Cloudy Urine pH 5.0 Ur Specific [place] 1.015 Urine Protein 100 (2+) H Urine Glucose (UA) Negative Urine Ketones Negative Urine Blood Large (3+) H Urine Nitrite Negative Ur Leukocyte Esterase Trace H Urine RBC 11-20 H Urine WBC 0-5 Ur Squamous Epith Cells 3-5 Urine Bacteria None Seen Hyaline Casts 0-2 Ur Random Sodium Ur Random Potassium Urine Creatinine Stool Occult Blood POSITIVE Ethyl Alcohol C. difficile Tox B Gene Blood Type Antibody Screen Crossmatch 05/18/23 05/18/23 02:23 05:46 MCV 88.4 MCH 28.8 MCHC 32.6 RDW 18.3 H Plt Count 40 L D MPV 12.5 H Immature Gran % (Auto) Neut % (Auto) Lymph % (Auto) [place] % (Auto) Eos % (Auto) Baso % (Auto) Lymph # (Auto) [place] # (Auto) Eos # (Auto) Baso # (Auto) Abs Immat Gran (auto) Absolute Neuts (auto) Absolute Nucleated RBC 0.000 Nucleated RBC % (auto) 0.0 Neutrophils % (Manual) Band Neutrophils % Lymphocytes % (Manual) Monocytes % (Manual) Abs Neuts (Manual) Lymphocytes # (Manual) Monocytes # (Manual) Toxic Vacuolation Platelet Estimate Plt Morphology Comment RBC Morphology Microcytosis [place]ora Cells Acanthocytes (Spur) Schistocytes ESR PT 25.0 H INR 2.1 H Anion Gap 14 Estim Creat Clear Calc 11.0 Estimated GFR 10 Random Glucose 128 H Lactic Acid Lactic Acid F/U @ 2Hr Calcium 8.0 L Magnesium 1.9 Total Bilirubin 1.5 H AST 17 ALT 9 Alkaline Phosphatase 70 Ammonia Total Creatine Kinase Total Protein 5.5 L Albumin 2.4 L Lipase Urine Color Urine Appearance Urine pH Ur Specific [place] Urine Protein Urine Glucose (UA) Urine Ketones Urine Blood Urine Nitrite Ur Leukocyte Esterase Urine RBC Urine WBC Ur Squamous Epith Cells Urine Bacteria Hyaline Casts Ur Random Sodium 20.0 Ur Random Potassium 25.8 Urine Creatinine 65.26 Stool Occult Blood Ethyl Alcohol C. difficile Tox B Gene NEGATIVE Blood Type Antibody Screen Crossmatch Microbiology Microbiology Results: Microbiology 05/17/23 13:39 Blood Culture - Preliminary Blood - Venous Prelim: GPC Gram Stain only 05/17/23 13:54 Blood Culture - Preliminary Blood - Venous Prelim: GPC Gram Stain only Assessment and Plan (1) Ascites: Status: Acute Plan 57F PMH etoh/hcv cirrhosis, copd, opiate dependence, mood disorder presented with ams, echymosis, found to have vladimir decompensated etoh/hcv cirrhosis with symptomatic ascites, severe VLADIMIR, acute blood loss anemia, acute metabolic encephalopathy due to hepatic encephalopathy and uremia, further complicated by possible sepsis from SBP s/p 1 unit prbc, hgb unchanged vladimir likely ATN/hepatorenal continue octreotide, ppi, albumin, empiric rocephin, midodrine monitor cbc, cmp plan for 2L paracentesis, check labs, culture lactulose for 2-3 bm/day, rifaximin gi and renal following monitor ciwa - no active withdrawal copd stable opiate dependence suboxone mood disorder zoloft dvt prophylaxis - mechanical due to gi bleed, thrombocytopenia full code - grave prognosis reason for continued hospitalization: active bleed, vladimir Quality Stroke Does the patient have a stroke diagnosis?: No VTE Prior VTE?: No VTE Risk Level:: Medical - moderate - high VTE Device Contraindication: N/A - Device Ordered VTE Drug Contraindication: Treatment Not Indicated
[2023-05-18] MEDS: Lidocaine HCl 1 % MPF 5 ML VIAL SUBCUT (09:55)
[2023-05-18 10:11] LABS: MN% 8.6 %; PMN% 91.4 %; WBC Peritoneal Fluid 3.813 X10*3/uL
[2023-05-18 10:13] LABS: RBC Peritoneal Fluid < 0.002 X10*6/uL
[2023-05-18] MEDS: Thiamine HCL 500 MG in 0.9 % Sodium Chloride 100 ML 210 MG IV ×2 (10:29→22:22)
[2023-05-18] MEDS: Cholecalciferol (Vitamin D3) 25 MCG TABLET 50 MCG PO (10:34)
[2023-05-18] MEDS: Buprenorphine/Naloxone 8/2 mg FILM 1 FILM BUCCAL (10:35)
[2023-05-18] MEDS: Lactulose 20 GM/30 ML SOLUTION PO (10:36)
[2023-05-18] MEDS: rifAXIMin 550 MG TABLET PO ×2 (10:37→22:24)
[2023-05-18] MEDS: Folic Acid 1 MG TABLET PO (10:37)
[2023-05-18] MEDS: Docusate Sodium 100 MG CAPSULE PO (10:37)
[2023-05-18] MEDS: Multivitamin TABLET 1 TAB PO (10:37)
[2023-05-18] MEDS: oxyBUTYnin chloride ER 5 MG TAB.ER.24 PO (10:37)
--- NOTE | 2023-05-18 10:39 | PM.EVENT ---
Event Note Date of Service: 05/18/23 Event Note: Procedure Note: US Diagnostic paracentesis 1L serous fluid removed and sent for analysis. No immediate complications. 3-0 nylon suture placed to prevent leaking. Kevin WITT Interventional Radiology Time Spent With Patient Time: Total time managing care of this patient today ____ minutes.
[2023-05-18] MEDS: 0.9 % Sodium Chloride Flush 3 ML SYRINGE IVFLUSH ×3 (10:40→23:12)
[2023-05-18] MEDS: Midodrine HCl 10 MG TABLET PO ×3 (10:45→22:58)
[2023-05-18] MEDS: Albumin Human 25 % 100 ML IV ×3 (11:01→22:26)
[2023-05-18 11:09] LABS: Monocytes Peritoneal Fl 12 %; Neutrophils Peritoneal Fluid 88 %
[2023-05-18 11:10] LABS: BF Shift QC OK YES
[2023-05-18] MEDS: Fluticasone Propionate 250 MCG BLST.W.DEV 1 PUFF INHALE ×2 (11:13→18:48)
[2023-05-18] MEDS: Sertraline HCL 50 MG TABLET 150 MG PO (11:15)
[2023-05-18 11:57] LABS: Adenovirus F 40/41 Not Detected (Not Detect.); Astrovirus Not Detected (Not Detect.); Campylobacter Not Detected (Not Detect.); Cryptosporidium Not Detected (Not Detect.); Cyclospora cayetanensis Not Detected (Not Detect.); E. coli EAEC Not Detected (Not Detect.); E. coli EPEC Detected (Not Detect.); E. coli ETEC Not Detected (Not Detect.); E. coli STEC Not Detected (Not Detect.); Entamoeba histolytica Not Detected (Not Detect.); Giardia lamblia Not Detected (Not Detect.); Norovirus GI/GII Not Detected (Not Detect.); Plesiomonas shigelloides Not Detected (Not Detect.); Rotavirus A Not Detected (Not Detect.); Salmonella Not Detected (Not Detect.); Sapovirus Not Detected (Not Detect.); Shigella sp./EIEC Not Detected (Not Detect.); Vibrio Not Detected (Not Detect.); Vibrio Cholerae Not Detected (Not Detect.); Yersinia enterocolitica Not Detected (Not Detect.)
[2023-05-18] MEDS: Phytonadione (Vit K1) 10 MG in 0.9 % Sodium Chloride 50 ML 51 MG IV (12:06)
[2023-05-18 13:33] LABS: pH Peritoneal Fluid 7.33
[2023-05-18] MEDS: cefTRIAXone sodium 1 GM in 0.9 % Sodium Chloride 50 ML IV ×2 (13:42→16:57)
[2023-05-18 13:43] LABS: Albumin Peritoneal Fluid 0.4 GM/DL; Glucose Peritoneal Fluid 121 MG/DL; Total Protein Peritoneal Fluid 0.7 GM/DL
[2023-05-18] MEDS: vancomycin HCL 1,250 MG in 0.9 % Sodium Chloride 250 ML 166.67 MG IV (15:59)
--- NOTE | 2023-05-18 16:09 | P.PNGI_ITS ---
Subjective Subjective Date of Service: 05/18/23 Interval History: Seen at bedside reports persistent abd pain. Diarrhea worse with lactulose on board. Labs reviewed - ascitic fluid + SBP. Cr unchanged. Albumin started this AM by renal. Critical Care Time (minutes): 0 Physical Exam 2 Vital Signs: Vital Signs: Last Vital Signs Temp 97.2 F 05/18/23 15:29 Pulse 101 H 05/18/23 15:29 Resp 14 05/18/23 15:29 BP 140/68 H 05/18/23 15:29 Pulse Ox 98 05/18/23 15:29 O2 Del Method Nasal Cannula 05/18/23 15:29 O2 Flow Rate 3 05/18/23 15:29 BMI result Body Mass Index 24.8 Ill appearing Icteric soft, distended Objective Data Labs 05/18/23 05:46 05/18/23 05:46 Labs: Laboratory Results - last 24 hr 05/17/23 05/17/23 05/17/23 12:34 16:53 18:18 WBC RBC Hgb Hct MCV MCH MCHC RDW Plt Count MPV Absolute Nucleated RBC Nucleated RBC % (auto) PT INR Sodium Potassium Chloride Carbon Dioxide Anion Gap BUN Creatinine Estim Creat Clear Calc Estimated GFR Random Glucose Lactic Acid F/U @ 2Hr 1.8 Calcium Magnesium Total Bilirubin AST ALT Alkaline Phosphatase Total Protein Albumin Urine Color Yellow Urine Appearance Cloudy Urine pH 5.0 Ur Specific [place] 1.015 Urine Protein 100 (2+) H Urine Glucose (UA) Negative Urine Ketones Negative Urine Blood Large (3+) H Urine Nitrite Negative Ur Leukocyte Esterase Trace H Urine RBC 11-20 H Urine WBC 0-5 Ur Squamous Epith Cells 3-5 Urine Bacteria None Seen Hyaline Casts 0-2 Ur Random Sodium Ur Random Potassium Ur Random Chloride Urine Creatinine Peritoneal pH Peritoneal WBC Peritoneal RBC Periton Neutrophils Peritoneal Monocytes Peritoneal Tot Protein Peritoneal Albumin Peritoneal Glucose Stl C. cayetanensis PCR Stool Rotavirus A PCR Stl Adenov F 40/41 PCR Stool Astrovirus (PCR) Stool Campylobacter PCR Stool Cryptosporidium PCR Stl Sh Tox Pr E STEC PCR Stool E coli O157 PCR Stl Enterotoxigenic E PCR Stool EPEC (PCR) Stool EAEC (PCR) Stl E. histolytica PCR Stool Giardia Lamblia PCR Stl P. shigelloides PCR Stool Salmonella PCR Stool Sapovirus (PCR) Stl Shigella/EIEC PCR St Y.enterocolitica PCR Stool Vibrio (PCR) Stl Vibrio cholerae PCR Stl Norovirus GI/GII PCR C. difficile Tox B Gene Crossmatch See Detail 05/18/23 05/18/23 05/18/23 02:23 05:46 09:35 WBC 12.3 H RBC 2.50 L Hgb 7.2 L Hct 22.1 L MCV 88.4 MCH 28.8 MCHC 32.6 RDW 18.3 H Plt Count 40 L D MPV 12.5 H Absolute Nucleated RBC 0.000 Nucleated RBC % (auto) 0.0 PT 25.0 H INR 2.1 H Sodium 138 Potassium 4.0 Chloride 112 H Carbon Dioxide 16 L Anion Gap 14 BUN 94 H Creatinine 4.36 H* Estim Creat Clear Calc 11.0 Estimated GFR 10 Random Glucose 128 H Lactic Acid F/U @ 2Hr Calcium 8.0 L Magnesium 1.9 Total Bilirubin 1.5 H AST 17 ALT 9 Alkaline Phosphatase 70 Total Protein 5.5 L Albumin 2.4 L Urine Color Urine Appearance Urine pH Ur Specific [place] Urine Protein Urine Glucose (UA) Urine Ketones Urine Blood Urine Nitrite Ur Leukocyte Esterase Urine RBC Urine WBC Ur Squamous Epith Cells Urine Bacteria Hyaline Casts Ur Random Sodium 20.0 Ur Random Potassium 25.8 Ur Random Chloride 33.0 Urine Creatinine 65.26 Peritoneal pH 7.33 Peritoneal WBC 3.813 Peritoneal RBC < 0.002 Periton Neutrophils 88 Peritoneal Monocytes 12 Peritoneal Tot Protein 0.7 Peritoneal Albumin 0.4 Peritoneal Glucose 121 Stl C. cayetanensis PCR Not Detected Stool Rotavirus A PCR Not Detected Stl Adenov F 40/41 PCR Not Detected Stool Astrovirus (PCR) Not Detected Stool Campylobacter PCR Not Detected Stool Cryptosporidium PCR Not Detected Stl Sh Tox Pr E STEC PCR Not Detected Stool E coli O157 PCR Not applicable Stl Enterotoxigenic E PCR Not Detected Stool EPEC (PCR) Detected A Stool EAEC (PCR) Not Detected Stl E. histolytica PCR Not Detected Stool Giardia Lamblia PCR Not Detected Stl P. shigelloides PCR Not Detected Stool Salmonella PCR Not Detected Stool Sapovirus (PCR) Not Detected Stl Shigella/EIEC PCR Not Detected St Y.enterocolitica PCR Not Detected Stool Vibrio (PCR) Not Detected Stl Vibrio cholerae PCR Not Detected Stl Norovirus GI/GII PCR Not Detected C. difficile Tox B Gene NEGATIVE Crossmatch Microbiology Microbiology Results: Microbiology 05/18/23 09:35 Ascites Fluid Gram Stain - Final 05/17/23 13:54 Blood - Venous Blood Culture - Preliminary Gram positive cocci 05/17/23 13:39 Blood - Venous Blood Culture - Preliminary Gram positive cocci Procedures Date of Service Date of Service: 05/18/23 Progress Note: A&P Assessment and plan (1) SBP (spontaneous bacterial peritonitis): Status: Acute (2) Ascites: Status: Acute (3) Sepsis: Status: Acute (4) Acute on chronic anemia: Status: Acute (5) Hepatic encephalopathy: Status: Acute (6) Alcoholic cirrhosis of liver with ascites: Status: Acute Plan Sepsis likely 2/2 SBP and GPC bactremia. C&S pending. Renal function likely 2/2 VLADIMIR/HRS vs septic ATN. Renal onboard, appreciate input. - Increase ceftriaxone to 2g IV for SBP dose, to be continued for 7 days. - Once IV therapy completed, will need Bactrim or Cipro for 2ndary prophylaxis - Consider DCing lactulose as pt having 7-8 BMs per day - Management of VLADIMIR as per renal - Anemia noted but no overt bleeding and not optimized for EGD currently given volume status - Prognosis remains guarded Time Spent With Patient Time: Total time managing care of this patient today ____ minutes. Quality Stroke Does the patient have a stroke diagnosis?: No VTE Prior VTE?: No VTE Risk Level:: Medical - moderate - high VTE Device Contraindication: N/A - Device Ordered VTE Drug Contraindication: Treatment Not Indicated
--- NOTE | 2023-05-18 17:16 | MHC.CM.ED ---
CARMENCITA received a tiger text from Lois Moore RN from . She expressed concerns about this patient's ability to live at home safely. She stated that the patient is very ill, the worst she has seen her, and she sees her weekly for paracentesis. States the patient told her that her family doesn't help her much. CARMENCITA encouraged Lois to reach out to CARMENCITA on Med/Telly, but that I would write a note about her concerns regarding a safe discharge home.
[2023-05-18 17:57] LABS: Appearance Urine Turbid; Color Urine Dark Yellow; Glucose Urine UA Negative (Negative); Leukocyte Esterase Urine Small (1+) (Negative); Nitrite Urine Negative (Negative); Specific Gravity - Urine 1.015 (1.005-1.025); UMIC TRIGGER UA YES; Urine Blood Large (3+) (Negative); Urine Ketones Negative (Negative); Urine Protein 100 (2+) mg/dL (Neg-Trace)
[2023-05-18 18:07] LABS: Total Protein Urine Random 101 mg/dL (<12)
[2023-05-18 18:10] LABS: Bacteria Urine None Seen (None Seen); Granular Casts Urine Present
[2023-05-18] MEDS: Calcium + Vitamin D 250 MG TABLET 1000 MG PO (22:26)
[2023-05-19] VITALS (7 sets, daily range): BP systolic 138–168; BP diastolic 74–81; PULSE 95–111; RESP 18–20; TEMP 36.3–36.9; O2SAT 92–93
[2023-05-19 06:11] LABS: Hematocrit 22.6 % (37.0-47.0); Hemoglobin 7.3 g/dl (12.0-16.0); Mean Corpuscular HGB Conc 32.3 g/dl (31.0-35.0); Mean Corpuscular Hemoglobin 29.1 pg (27.0-33.0); Mean Platelet Volume 10.2 fL (9.4-12.3); Platelet Count 30 X10*3/uL (160-400); Red Blood Count 2.51 X10*6/uL (4.20-5.50); Red Cell Distribution Width 18.8 % (11.0-16.0); White Blood Count 10.1 X10*3/uL (4.8-10.8)
[2023-05-19 06:18] LABS: INTERNATIONAL NORM RATIO 1.8 (0.9-1.1); Prothrombin Time 21.7 SEC (11.1-13.3)
[2023-05-19 06:30] LABS: Alanine Aminotransferase 7 U/L (0-31); Alkaline Phosphatase 66 U/L (39-117); Anion Gap 13 (12-20); Aspartate Amino Transferase 16 U/L (5-31); Bilirubin Total 1.3 mg/dL (0.0-1.0); Blood Urea Nitrogen 102 mg/dL (9-16); Carbon Dioxide 16 mmol/L (22-29); Chloride 118 mmol/L (96-108); Creatinine Clr Calc Pharmacy 10.7; Estimated Glomerular Filt Rate 10; Glucose Fasting 113 mg/dL (60-99); Glucose Random 111 mg/dL (60-115); Potassium 3.9 mmol/L (3.3-5.1); Sodium 143 mmol/L (135-145)
[2023-05-19] MEDS: Octreotide Acetate 500 MCG in 0.9 % Sodium Chloride 500 ML 50.1 MCG IVCONT ×2 (06:48→17:30)
[2023-05-19] MEDS: Fluticasone Propionate 250 MCG BLST.W.DEV 1 PUFF INHALE ×2 (08:09→19:12)
[2023-05-19] MEDS: Pantoprazole Sodium 80 MG in 0.9 % Sodium Chloride 80 ML 10 MG IV ×2 (08:44→22:05)
[2023-05-19] MEDS: Albumin Human 25 % 100 ML IV ×3 (08:47→21:59)
[2023-05-19] MEDS: 0.9 % Sodium Chloride Flush 3 ML SYRINGE IVFLUSH ×2 (08:48→15:30)
[2023-05-19] MEDS: Buprenorphine/Naloxone 8/2 mg FILM 1 FILM BUCCAL (08:50)
[2023-05-19] MEDS: Midodrine HCl 10 MG TABLET PO ×3 (08:50→21:59)
[2023-05-19] MEDS: Folic Acid 1 MG TABLET PO (08:50)
[2023-05-19] MEDS: oxyBUTYnin chloride ER 5 MG TAB.ER.24 PO (08:50)
[2023-05-19] MEDS: Multivitamin TABLET 1 TAB PO (08:50)
[2023-05-19] MEDS: rifAXIMin 550 MG TABLET PO ×2 (08:50→21:59)
[2023-05-19] MEDS: Cholecalciferol (Vitamin D3) 25 MCG TABLET 50 MCG PO (08:50)
--- NOTE | 2023-05-19 10:04 | P.PNIM_ITS ---
Subjective Subjective Date of Service: 05/19/23 Interval History: abd pain and distension improved Physical Exam 2 Vital Signs: Vital Signs: Last Vital Signs Temp 98.5 F 05/19/23 07:50 Pulse 109 H 05/19/23 08:12 Resp 20 05/19/23 08:12 BP 138/79 05/19/23 07:50 Pulse Ox 92 05/19/23 07:50 O2 Del Method Nasal Cannula 05/19/23 07:50 O2 Flow Rate 2 05/19/23 07:50 BMI result Body Mass Index 24.8 Ill appearing Icteric soft, distended Objective Data Active Medications Albuterol Sulfate (Albuterol Sulfate 90 Mcg 8 Gm Inhaler) 2 puff INHALE Q4H PRN PRN Reason: Wheezing Albuterol/Ipratropium (Albuterol/Iprat 2.5/0.5mg 3 Ml Ampul.Neb) 3 ml INHALE QID PRN PRN Reason: Wheezing Baclofen (Baclofen 10 Mg Tablet) 10 mg PO BEDTIME PRN PRN Reason: muscle spasm Benzonatate (Benzonatate 100 Mg Capsule) 100 mg PO TID PRN PRN Reason: Cough Buprenorphine/Naloxone (Buprenorphine/Naloxone 8/2 Mg Film) 1 film BUCCAL DAILY [facility] Last Admin: 05/19/23 08:50 Dose: 1 film Documented By: ROSMERY Calcium Carbonate/Cholecalciferol (Calcium + Vitamin D 250 Mg Tablet) 1,000 mg PO BEDTIME [facility] Last Admin: 05/18/23 22:26 Dose: 1,000 mg Documented By: BRIA Docusate Sodium (Docusate Sodium 100 Mg Capsule) 100 mg PO DAILY PRN PRN Reason: Constipation Docusate Sodium (Docusate Sodium 100 Mg Capsule) 100 mg PO DAILY [facility] Last Admin: 05/19/23 08:49 Dose: Not Given Documented By: ROSMERY Non-Admin Reason: Patient Refused Fluticasone Propionate (Fluticasone Propionate 250 Mcg Blst.W.Dev) 1 puff INHALE RBID [facility] Last Admin: 05/19/23 08:09 Dose: 1 puff Documented By: DEON Fluticasone Propionate (Fluticasone Propionate Nasal 16 Gm [place]) 1 spray NOSTRIL-B DAILY PRN PRN Reason: Congestion Folic Acid (Folic Acid 1 Mg Tablet) 1 mg PO DAILY [facility] Last Admin: 05/19/23 08:50 Dose: 1 mg Documented By: ROSMERY Octreotide Acetate 500 mcg/ (Sodium Chloride) 501 mls @ 50.1 mls/hr IVCONT .Q10H [facility] Last Admin: 05/19/23 06:48 Dose: 50 mcg/hr, 50.1 mls/hr Documented By: BRANDI Pantoprazole Sodium 80 mg/ (Sodium Chloride) 100 mls @ 10 mls/hr IV .Q10H [facility] Last Admin: 05/19/23 08:44 Dose: 8 mg/hr, 10 mls/hr Documented By: ROSMERY Thiamine HCl 500 mg/ Sodium (Chloride) 105 mls @ 210 mls/hr IV Q12H [facility] Stop: 05/19/23 22:59 Last Infusion: 05/18/23 23:05 Dose: Infused Documented By: BRIA Albumin Human (Kedbumin 25 %) 100 mls @ 100 mls/hr IV TID [facility] Stop: 05/21/23 09:59 Last Admin: 05/19/23 08:47 Dose: 100 mls/hr Documented By: ROSMERY Ceftriaxone Sodium 2 gm/ (Sodium Chloride) 50 mls @ 100 mls/hr IV Q24H [facility] Lactulose (Lactulose 20 Gm/30 Ml Solution) 20 gm PO BID [facility] Last Admin: 05/19/23 08:49 Dose: Not Given Documented By: ROSMERY Non-Admin Reason: Patient Refused Melatonin (Melatonin 3 Mg Tablet) 6 mg PO BEDTIME PRN PRN Reason: Insomnia Midodrine (Midodrine Hcl 10 Mg Tablet) 10 mg PO TID [facility] Last Admin: 05/19/23 08:50 Dose: 10 mg Documented By: ROSMERY Multivitamins/Vitamin C (Multivitamin Tablet) 1 tab PO DAILY [facility] Last Admin: 05/19/23 08:50 Dose: 1 tab Documented By: ROSMERY Ondansetron HCl (Ondansetron Hcl 4 Mg/2 Ml Vial) 4 mg IVPUSH Q8H PRN PRN Reason: Nausea and Vomiting Oxybutynin Chloride (Oxybutynin Chloride Er 5 Mg Tab.Er.24) 5 mg PO DAILY [facility] Last Admin: 05/19/23 08:50 Dose: 5 mg Documented By: ROSMERY Rifaximin (Rifaximin 550 Mg Tablet) 550 mg PO BID [facility] Last Admin: 05/19/23 08:50 Dose: 550 mg Documented By: ROSMERY Sertraline HCl (Sertraline Hcl 50 Mg Tablet) 150 mg PO DAILY@1200 [facility] Last Admin: 05/18/23 11:15 Dose: 150 mg Documented By: SANGEETA Sodium Chloride (0.9 % Sodium Chloride Flush 3 Ml Syringe) 3 ml IVFLUSH QSHIFT [facility] Last Admin: 05/19/23 08:48 Dose: 3 ml Documented By: ROSMERY Thiamine HCl (Thiamine Hcl 100 Mg Tablet) 100 mg PO DAILY [facility] Trazodone HCl (Trazodone Hcl 100 Mg Tablet) 100 mg PO BEDTIME [facility] Last Admin: 05/19/23 08:34 Dose: Not Given Documented By: BRIA Non-Admin Reason: pt too drowsy, MD Leroy aware. Vitamin D (Cholecalciferol (Vitamin D3) 25 Mcg Tablet) 50 mcg PO DAILY [facility] Last Admin: 05/19/23 08:50 Dose: 50 mcg Documented By: ROSMERY Labs 05/19/23 05:35 05/19/23 05:35 Labs: Laboratory Results - last 24 hr 05/18/23 05/18/23 05/18/23 02:23 09:35 17:00 MCV MCH MCHC RDW Plt Count MPV Absolute Nucleated RBC Nucleated RBC % (auto) PT INR Anion Gap Estim Creat Clear Calc Estimated GFR Random Glucose Fasting Glucose Calcium Magnesium Total Bilirubin Direct Bilirubin AST ALT Alkaline Phosphatase Total Protein Albumin Urine Color Dark Yellow Urine Appearance Turbid Urine pH 5.0 Ur Specific [place] 1.015 Urine Protein 100 (2+) H Urine Glucose (UA) Negative Urine Ketones Negative Urine Blood Large (3+) H Urine Nitrite Negative Ur Leukocyte Esterase Small (1+) H Urine RBC 11-20 H Urine WBC 11-20 H Ur Squamous Epith Cells 3-5 Urine Bacteria None Seen Hyaline Casts 3-5 Granular Casts Present Urine Yeast Present U Random Total Protein Ur Random Chloride 33.0 Peritoneal pH 7.33 Peritoneal WBC 3.813 Peritoneal RBC < 0.002 Periton Neutrophils 88 Peritoneal Monocytes 12 Peritoneal Tot Protein 0.7 Peritoneal Albumin 0.4 Peritoneal Glucose 121 Stl C. cayetanensis PCR Not Detected Stool Rotavirus A PCR Not Detected Stl Adenov F 40/41 PCR Not Detected Stool Astrovirus (PCR) Not Detected Stool Campylobacter PCR Not Detected Stool Cryptosporidium PCR Not Detected Stl Sh Tox Pr E STEC PCR Not Detected Stool E coli O157 PCR Not applicable Stl Enterotoxigenic E PCR Not Detected Stool EPEC (PCR) Detected A Stool EAEC (PCR) Not Detected Stl E. histolytica PCR Not Detected Stool Giardia Lamblia PCR Not Detected Stl P. shigelloides PCR Not Detected Stool Salmonella PCR Not Detected Stool Sapovirus (PCR) Not Detected Stl Shigella/EIEC PCR Not Detected St Y.enterocolitica PCR Not Detected Stool Vibrio (PCR) Not Detected Stl Vibrio cholerae PCR Not Detected Stl Norovirus GI/GII PCR Not Detected 05/18/23 05/19/23 Unknown 05:35 MCV 90.0 MCH 29.1 MCHC 32.3 RDW 18.8 H Plt Count 30 L MPV 10.2 Absolute Nucleated RBC 0.000 Nucleated RBC % (auto) 0.0 PT 21.7 H INR 1.8 H Anion Gap 13 Estim Creat Clear Calc 10.7 Estimated GFR 10 Random Glucose 111 Fasting Glucose 113 H Calcium 8.0 L Magnesium 2.0 Total Bilirubin 1.3 H Direct Bilirubin 1.0 H AST 16 ALT 7 Alkaline Phosphatase 66 Total Protein 6.0 L Albumin 3.0 L Urine Color Urine Appearance Urine pH Ur Specific [place] Urine Protein Urine Glucose (UA) Urine Ketones Urine Blood Urine Nitrite Ur Leukocyte Esterase Urine RBC Urine WBC Ur Squamous Epith Cells Urine Bacteria Hyaline Casts Granular Casts Urine Yeast U Random Total Protein 101 H Ur Random Chloride Peritoneal pH Peritoneal WBC Peritoneal RBC Periton Neutrophils Peritoneal Monocytes Peritoneal Tot Protein Peritoneal Albumin Peritoneal Glucose Stl C. cayetanensis PCR Stool Rotavirus A PCR Stl Adenov F 40/41 PCR Stool Astrovirus (PCR) Stool Campylobacter PCR Stool Cryptosporidium PCR Stl Sh Tox Pr E STEC PCR Stool E coli O157 PCR Stl Enterotoxigenic E PCR Stool EPEC (PCR) Stool EAEC (PCR) Stl E. histolytica PCR Stool Giardia Lamblia PCR Stl P. shigelloides PCR Stool Salmonella PCR Stool Sapovirus (PCR) Stl Shigella/EIEC PCR St Y.enterocolitica PCR Stool Vibrio (PCR) Stl Vibrio cholerae PCR Stl Norovirus GI/GII PCR Microbiology Microbiology Results: Microbiology 05/18/23 09:35 Gram Stain - Final Ascites Fluid Routine Culture - Preliminary No growth to date. Anaerobic Culture - Preliminary No growth to date. 05/17/23 13:39 Blood Culture - Preliminary Blood - Venous Streptococcus pneumoniae 05/17/23 13:54 Blood Culture - Preliminary Blood - Venous Streptococcus pneumoniae Assessment and Plan (1) Ascites: Status: Acute Plan 57F PMH etoh/hcv cirrhosis, copd, opiate dependence, mood disorder presented with ams, echymosis, found to have vladimir decompensated etoh/hcv cirrhosis with symptomatic ascites, severe VLADIMIR, acute blood loss anemia, acute metabolic encephalopathy due to hepatic encephalopathy and uremia, further complicated by sepsis from SBP and strep pneumonia bacteremia s/p 1 unit prbc, hgb unchanged vladimir likely ATN/hepatorenal continue octreotide, ppi, albumin, rocephin 2gm daily, midodrine monitor cbc, cmp s/p 1L paracentesis, positive for sbp lactulose for 2-3 bm/day, rifaximin gi and renal following monitor ciwa - no active withdrawal copd stable opiate dependence suboxone mood disorder zoloft dvt prophylaxis - mechanical due to gi bleed, thrombocytopenia full code - grave prognosis reason for continued hospitalization: active bleed, vladimir, bactremia Quality Stroke Does the patient have a stroke diagnosis?: No VTE Prior VTE?: No VTE Risk Level:: Medical - moderate - high VTE Device Contraindication: N/A - Device Ordered VTE Drug Contraindication: Treatment Not Indicated
[2023-05-19] MEDS: Thiamine HCL 500 MG in 0.9 % Sodium Chloride 100 ML 210 MG IV (11:52)
[2023-05-19] MEDS: Sertraline HCL 50 MG TABLET 150 MG PO (11:57)
[2023-05-19] MEDS: cefTRIAXone sodium 2 GM in 0.9 % Sodium Chloride 50 ML IV (12:06)
[2023-05-19 18:28] LABS: Urea, Random Urine 472 mg/dL
[2023-05-19] MEDS: Calcium + Vitamin D 250 MG TABLET 1000 MG PO (21:57)
[2023-05-19] MEDS: Fluticasone Propionate Nasal 16 GM SPRAY 1 SPRAY NOSTRIL-B (21:59)
[2023-05-20] VITALS (9 sets, daily range): BP systolic 143–167; BP diastolic 72–90; PULSE 85–97; RESP 16–22; TEMP 36.4–37.2; O2SAT 92–99
[2023-05-20 03:45] LABS: VBG Base Excess -13.8 mmol/L; VBG HCO3 12 mmol/L (22-26); VBG pCO2 27 mmHg; VBG pH 7.23 (7.32-7.43); VBG pO2 197 mmHg
[2023-05-20 03:47] LABS: Venous Blood Gas Refer to POC result
[2023-05-20] MEDS: Octreotide Acetate 500 MCG in 0.9 % Sodium Chloride 500 ML 50.1 MCG IVCONT ×2 (04:33→14:32)
[2023-05-20 05:48] LABS: Hematocrit 23.9 % (37.0-47.0); Hemoglobin 7.5 g/dl (12.0-16.0); Mean Corpuscular HGB Conc 31.4 g/dl (31.0-35.0); Mean Corpuscular Hemoglobin 28.5 pg (27.0-33.0); Mean Corpuscular Volume 90.9 fL (80.0-98.0); Mean Platelet Volume 10.5 fL (9.4-12.3); Red Blood Count 2.63 X10*6/uL (4.20-5.50); White Blood Count 8.5 X10*3/uL (4.8-10.8)
[2023-05-20 05:50] LABS: Lactic Acid 0.7 mmol/L (0.5-2.0)
[2023-05-20 05:58] LABS: Alanine Aminotransferase 7 U/L (0-31); Albumin Level 3.7 g/dL (3.5-5.0); Alkaline Phosphatase 57 U/L (39-117); Anion Gap 16 (12-20); Aspartate Amino Transferase 17 U/L (5-31); Bilirubin Total 1.6 mg/dL (0.0-1.0); Blood Urea Nitrogen 116 mg/dL (9-16); Calcium 8.2 mg/dL (8.4-10.2); Carbon Dioxide 15 mmol/L (22-29); Chloride 118 mmol/L (96-108); Creatinine Clr Calc Pharmacy 10.6; Estimated Glomerular Filt Rate 10; Glucose Fasting 89 mg/dL (60-99); Glucose Random 89 mg/dL (60-115); Sodium 145 mmol/L (135-145); Total Protein 6.6 g/dL (6.5-8.0)
[2023-05-20 06:03] LABS: Platelet Count 25 X10*3/uL (160-400)
--- NOTE | 2023-05-20 06:35 | PM.EVENT ---
Event Note Date of Service: 05/20/23 Event Note: Nurse reported dyspnea. Upon examination patient with crackles but denied dyspnea. Respiratory rate 18 to 20 times a minute. Obtained chest x-ray and VBG. Blood gas with metabolic acidosis, likely in the setting of VLADIMIR. Obtaining ABG. Time Spent With Patient Time: Total time managing care of this patient today ____ minutes.
[2023-05-20 06:54] LABS: ABG Base Excess -14.1 mmol/L; ABG HCO3 14 mmol/L (22-26); ABG pCO2 40 mmHg (32-45); ABG pH 7.13 (7.35-7.45); ABG pO2 78 mmHg (83-108)
--- NOTE | 2023-05-20 08:06 | P.PNNP_ITS ---
Subjective Subjective Date of Service: 05/20/23 Interval history: Pt acidotic Not giving history Physical Exam 2 Vital Signs: Vital Signs: Last Vital Signs Temp 97.9 F 05/20/23 04:00 Pulse 97 05/20/23 04:00 Resp 20 05/20/23 04:00 BP 159/90 H 05/20/23 04:00 Pulse Ox 96 05/20/23 04:00 O2 Del Method Nasal Cannula 05/20/23 04:00 O2 Flow Rate 2 05/20/23 04:00 BMI result Body Mass Index 24.8 pt is cachectic, fatigued diffuse purpuric rashes in skin confusion improving cvs: s1s2 Rs; cta ABd; soft, distended, ascites ++ Extremities: pedal edema 1+ Objective Data Labs 05/20/23 05:32 05/20/23 05:32 Labs: Laboratory Results - last 24 hr 05/18/23 05/20/23 05/20/23 02:23 03:36 05:32 WBC 8.5 RBC 2.63 L Hgb 7.5 L Hct 23.9 L MCV 90.9 MCH 28.5 MCHC 31.4 RDW 19.0 H Plt Count 25 L MPV 10.5 Absolute Nucleated RBC 0.000 Nucleated RBC % (auto) 0.0 O2 Saturation ABG pH at Pt Temp ABG pCO2 at Pt Temp ABG pO2 at Pt Temp ABG HCO3 ABG Base Excess (Actual) VBG pH 7.23 L VBG pCO2 27 VBG pO2 197 VBG HCO3 12 L VBG O2 Saturation 99.0 VBG Base Excess -13.8 Sodium 145 Potassium 4.0 Chloride 118 H Carbon Dioxide 15 L Anion Gap 16 BUN 116 H Creatinine 4.49 H* Estim Creat Clear Calc 10.6 Estimated GFR 10 Random Glucose 89 Fasting Glucose 89 Lactic Acid 0.7 Calcium 8.2 L Total Bilirubin 1.6 H AST 17 ALT 7 Alkaline Phosphatase 57 Total Protein 6.6 Albumin 3.7 Ur Random Urea 472 05/20/23 06:47 WBC RBC Hgb Hct MCV MCH MCHC RDW Plt Count MPV Absolute Nucleated RBC Nucleated RBC % (auto) O2 Saturation 93.0 ABG pH at Pt Temp 7.13 L* ABG pCO2 at Pt Temp 40 ABG pO2 at Pt Temp 78 L ABG HCO3 14 L ABG Base Excess (Actual) -14.1 VBG pH VBG pCO2 VBG pO2 VBG HCO3 VBG O2 Saturation VBG Base Excess Sodium Potassium Chloride Carbon Dioxide Anion Gap BUN Creatinine Estim Creat Clear Calc Estimated GFR Random Glucose Fasting Glucose Lactic Acid Calcium Total Bilirubin AST ALT Alkaline Phosphatase Total Protein Albumin Ur Random Urea Microbiology Microbiology Results: Microbiology 05/19/23 05:34 Blood - Venous Blood Culture - Preliminary No growth after 24 hours. 05/19/23 05:35 Blood - Venous Blood Culture - Preliminary No growth after 24 hours. 05/18/23 09:35 Ascites Fluid Gram Stain - Final 05/18/23 09:35 Ascites Fluid Routine Culture - Preliminary No growth to date. 05/18/23 09:35 Ascites Fluid Anaerobic Culture - Preliminary No growth to date. 05/17/23 13:39 Blood - Venous Blood Culture - Preliminary Streptococcus pneumoniae 05/17/23 13:54 Blood - Venous Blood Culture - Preliminary Streptococcus pneumoniae Procedures Date of Service Date of Service: 05/20/23 Assessment & Plan Assessment and plan (1) Acute on chronic renal failure: Status: Acute (2) Acute kidney injury: Status: Acute (3) Encephalopathy, hepatic: Status: Acute (4) Ascites: Status: Acute (5) Sepsis: Status: Acute (6) Cirrhosis of liver with ascites: Status: Inactive Plan VLADIMIR due to pre renal state in the setting of liver cirrhosis supsect acute tubular injury/ HRS type 1 significant ascites with ? 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 Medical team to consult ICU Time Spent With Patient Time: Total time managing care of this patient today ____ minutes. Progress Note: Quality Stroke Does the patient have a stroke diagnosis?: No
[2023-05-20] MEDS: Fluticasone Propionate 250 MCG BLST.W.DEV 1 PUFF INHALE ×2 (08:25→19:23)
[2023-05-20 08:51] LABS: ABG Refer to POC result
--- NOTE | 2023-05-20 09:05 | P.PNIM_ITS ---
Subjective Subjective Date of Service: 05/20/23 Interval History: fatigued, was sob overnight, but now resolved Physical Exam 2 Vital Signs: Vital Signs: Last Vital Signs Temp 97.6 F 05/20/23 08:00 Pulse 92 05/20/23 08:25 Resp 22 H 05/20/23 08:25 BP 143/85 H 05/20/23 08:00 Pulse Ox 96 05/20/23 08:00 O2 Del Method Nasal Cannula 05/20/23 08:00 O2 Flow Rate 4 05/20/23 08:00 BMI result Body Mass Index 24.8 lethargic, oriented times 3, ill appearing, frail, abd distended and non tender, lung diminished Objective Data Active Medications Albuterol Sulfate (Albuterol Sulfate 90 Mcg 8 Gm Inhaler) 2 puff INHALE Q4H PRN PRN Reason: Wheezing Albuterol/Ipratropium (Albuterol/Iprat 2.5/0.5mg 3 Ml Ampul.Neb) 3 ml INHALE QID PRN PRN Reason: Wheezing Baclofen (Baclofen 10 Mg Tablet) 10 mg PO BEDTIME PRN PRN Reason: muscle spasm Benzonatate (Benzonatate 100 Mg Capsule) 100 mg PO TID PRN PRN Reason: Cough Buprenorphine/Naloxone (Buprenorphine/Naloxone 8/2 Mg Film) 1 film BUCCAL DAILY [facility] Last Admin: 05/19/23 08:50 Dose: 1 film Documented By: ROSMERY Calcium Carbonate/Cholecalciferol (Calcium + Vitamin D 250 Mg Tablet) 1,000 mg PO BEDTIME [facility] Last Admin: 05/19/23 21:57 Dose: 1,000 mg Documented By: BRIA Docusate Sodium (Docusate Sodium 100 Mg Capsule) 100 mg PO DAILY PRN PRN Reason: Constipation Docusate Sodium (Docusate Sodium 100 Mg Capsule) 100 mg PO DAILY [facility] Last Admin: 05/19/23 08:49 Dose: Not Given Documented By: ROSMERY Non-Admin Reason: Patient Refused Fluticasone Propionate (Fluticasone Propionate 250 Mcg Blst.W.Dev) 1 puff INHALE RBID [facility] Last Admin: 05/20/23 08:25 Dose: 1 puff Documented By: DEON Fluticasone Propionate (Fluticasone Propionate Nasal 16 Gm [place]) 1 spray NOSTRIL-B DAILY PRN PRN Reason: Congestion Last Admin: 05/19/23 21:59 Dose: 1 spray Documented By: BRIA Folic Acid (Folic Acid 1 Mg Tablet) 1 mg PO DAILY [facility] Last Admin: 05/19/23 08:50 Dose: 1 mg Documented By: ROSMERY Octreotide Acetate 500 mcg/ (Sodium Chloride) 501 mls @ 50.1 mls/hr IVCONT .Q10H [facility] Last Admin: 05/20/23 04:33 Dose: 50 mcg/hr, 50.1 mls/hr Documented By: BRIA Pantoprazole Sodium 80 mg/ (Sodium Chloride) 100 mls @ 10 mls/hr IV .Q10H [facility] Stop: 05/20/23 11:59 Last Admin: 05/19/23 22:05 Dose: 8 mg/hr, 10 mls/hr Documented By: BRIA Albumin Human (Kedbumin 25 %) 100 mls @ 100 mls/hr IV TID [facility] Stop: 05/21/23 09:59 Last Infusion: 05/19/23 23:10 Dose: Infused Documented By: BRIA Ceftriaxone Sodium 2 gm/ (Sodium Chloride) 50 mls @ 100 mls/hr IV Q24H [facility] Last Infusion: 05/19/23 12:39 Dose: Infused Documented By: ROSMERY Sodium Bicarbonate 100 meq/ (Dextrose) 1,000 mls @ 100 mls/hr IV .Q10H [facility] Stop: 05/20/23 18:14 Pantoprazole Sodium 80 mg/ (Sodium Chloride) 100 mls @ 10 mls/hr IV .Q10H [facility] Lactulose (Lactulose 20 Gm/30 Ml Solution) 20 gm PO BID [facility] Last Admin: 05/19/23 22:07 Dose: Not Given Documented By: BRIA Non-Admin Reason: Pt with >4 loose stools today Melatonin (Melatonin 3 Mg Tablet) 6 mg PO BEDTIME PRN PRN Reason: Insomnia Midodrine (Midodrine Hcl 10 Mg Tablet) 10 mg PO TID [facility] Last Admin: 05/19/23 21:59 Dose: 10 mg Documented By: BRIA Multivitamins/Vitamin C (Multivitamin Tablet) 1 tab PO DAILY [facility] Last Admin: 05/19/23 08:50 Dose: 1 tab Documented By: ROSMERY Ondansetron HCl (Ondansetron Hcl 4 Mg/2 Ml Vial) 4 mg IVPUSH Q8H PRN PRN Reason: Nausea and Vomiting Oxybutynin Chloride (Oxybutynin Chloride Er 5 Mg Tab.Er.24) 5 mg PO DAILY [facility] Last Admin: 05/19/23 08:50 Dose: 5 mg Documented By: ROSMERY Rifaximin (Rifaximin 550 Mg Tablet) 550 mg PO BID [facility] Last Admin: 05/19/23 21:59 Dose: 550 mg Documented By: BRIA Sertraline HCl (Sertraline Hcl 50 Mg Tablet) 150 mg PO DAILY@1200 [facility] Last Admin: 05/19/23 11:57 Dose: 150 mg Documented By: ROSMERY Sodium Chloride (0.9 % Sodium Chloride Flush 3 Ml Syringe) 3 ml IVFLUSH QSHIFT [facility] Last Admin: 05/20/23 04:37 Dose: Not Given Documented By: BRIA Non-Admin Reason: IV Running Thiamine HCl (Thiamine Hcl 100 Mg Tablet) 100 mg PO DAILY [facility] Trazodone HCl (Trazodone Hcl 100 Mg Tablet) 100 mg PO BEDTIME [facility] Last Admin: 05/19/23 22:07 Dose: Not Given Documented By: BRIA Non-Admin Reason: escessive sleepiness, MD Butts aware. Vitamin D (Cholecalciferol (Vitamin D3) 25 Mcg Tablet) 50 mcg PO DAILY [facility] Last Admin: 05/19/23 08:50 Dose: 50 mcg Documented By: ROSMERY Labs 05/20/23 05:32 05/20/23 05:32 Labs: Laboratory Results - last 24 hr 05/18/23 05/20/23 05/20/23 02:23 03:36 05:32 MCV 90.9 MCH 28.5 MCHC 31.4 RDW 19.0 H Plt Count 25 L MPV 10.5 Absolute Nucleated RBC 0.000 Nucleated RBC % (auto) 0.0 O2 Saturation ABG pH at Pt Temp ABG pCO2 at Pt Temp ABG pO2 at Pt Temp ABG HCO3 ABG Base Excess (Actual) VBG pH 7.23 L VBG pCO2 27 VBG pO2 197 VBG HCO3 12 L VBG O2 Saturation 99.0 VBG Base Excess -13.8 Anion Gap 16 Estim Creat Clear Calc 10.6 Estimated GFR 10 Random Glucose 89 Fasting Glucose 89 Lactic Acid 0.7 Calcium 8.2 L Total Bilirubin 1.6 H AST 17 ALT 7 Alkaline Phosphatase 57 Total Protein 6.6 Albumin 3.7 Ur Random Urea 472 05/20/23 06:47 MCV MCH MCHC RDW Plt Count MPV Absolute Nucleated RBC Nucleated RBC % (auto) O2 Saturation 93.0 ABG pH at Pt Temp 7.13 L* ABG pCO2 at Pt Temp 40 ABG pO2 at Pt Temp 78 L ABG HCO3 14 L ABG Base Excess (Actual) -14.1 VBG pH VBG pCO2 VBG pO2 VBG HCO3 VBG O2 Saturation VBG Base Excess Anion Gap Estim Creat Clear Calc Estimated GFR Random Glucose Fasting Glucose Lactic Acid Calcium Total Bilirubin AST ALT Alkaline Phosphatase Total Protein Albumin Ur Random Urea Microbiology Microbiology Results: Microbiology 05/19/23 05:34 Blood Culture - Preliminary Blood - Venous No growth after 24 hours. 05/19/23 05:35 Blood Culture - Preliminary Blood - Venous No growth after 24 hours. 05/18/23 09:35 Gram Stain - Final Ascites Fluid Routine Culture - Preliminary No growth to date. Anaerobic Culture - Preliminary No growth to date. 05/17/23 13:39 Blood Culture - Preliminary Blood - Venous Streptococcus pneumoniae 05/17/23 13:54 Blood Culture - Preliminary Blood - Venous Streptococcus pneumoniae Assessment and Plan (1) Ascites: Status: Acute Plan 57F PMH etoh/hcv cirrhosis, copd, opiate dependence, mood disorder presented with ams, echymosis, found to have vladimir decompensated etoh/hcv cirrhosis with symptomatic ascites, severe VLADIMIR, acute blood loss anemia, acute metabolic encephalopathy due to hepatic encephalopathy and uremia, further complicated by sepsis from SBP and strep pneumonia bacteremia s/p 1 unit prbc, hgb unchanged vladimir likely ATN/hepatorenal continue octreotide, ppi, albumin, rocephin 2gm daily, midodrine monitor cbc, cmp s/p 1L paracentesis 05/18/23, positive for sbp lactulose for 2-3 bm/day, rifaximin gi and renal following monitor ciwa - no active withdrawal now with acute metabolic and respiratory acidosis - starting iv bicarb critical care consult copd stable opiate dependence suboxone mood disorder zoloft dvt prophylaxis - mechanical due to gi bleed, thrombocytopenia full code - grave prognosis reason for continued hospitalization: vladimir, bactremia Quality Stroke Does the patient have a stroke diagnosis?: No VTE Prior VTE?: No VTE Risk Level:: Medical - moderate - high VTE Device Contraindication: N/A - Device Ordered VTE Drug Contraindication: Treatment Not Indicated
[2023-05-20] MEDS: Thiamine HCL 100 MG TABLET PO (09:06)
[2023-05-20] MEDS: rifAXIMin 550 MG TABLET PO (09:07)
[2023-05-20] MEDS: Cholecalciferol (Vitamin D3) 25 MCG TABLET 50 MCG PO (09:07)
[2023-05-20] MEDS: oxyBUTYnin chloride ER 5 MG TAB.ER.24 PO (09:07)
[2023-05-20] MEDS: Buprenorphine/Naloxone 8/2 mg FILM 1 FILM BUCCAL (09:07)
[2023-05-20] MEDS: Folic Acid 1 MG TABLET PO (09:07)
[2023-05-20] MEDS: Midodrine HCl 10 MG TABLET PO ×2 (09:07→15:55)
[2023-05-20] MEDS: Multivitamin TABLET 1 TAB PO (09:08)
[2023-05-20] MEDS: 0.9 % Sodium Chloride Flush 3 ML SYRINGE IVFLUSH ×2 (09:19→14:38)
[2023-05-20] MEDS: Albumin Human 25 % 100 ML IV ×3 (09:19→20:50)
[2023-05-20] MEDS: Sodium Bicarbonate 8.4% 100 MEQ in Dextrose 5 % 900 ML IV (09:25)
[2023-05-20 11:05] LABS: Venous Blood Gas Refer to POC result
[2023-05-20 11:06] LABS: VBG Base Excess -11.4 mmol/L; VBG HCO3 12 mmol/L (22-26); VBG pCO2 19 mmHg; VBG pH 7.39 (7.32-7.43); VBG pO2 214 mmHg
--- NOTE | 2023-05-20 11:24 | P.CONCC_ITS ---
History of Present Illness Data of Consult Service Date: 05/20/23 Requesting physician: Octavio Pugh Primary Care Provider: Amina Malone DO HPI Reason for consult: Metabolic acidosis 57-year-old lady with underlying alcoholic/hep C cirrhosis with continuation of alcohol abuse requiring weekly paracentesis, COPD, hypotension admitted on 05/17/2023 with alteration of mental status, worsening ascites: Colitis. Hospital course further complicated by spontaneous bacterial peritonitis and hepatorenal syndrome with worsening metabolic acidosis. Patient was continued on lactulose and Xifaxan, started on ceftriaxone for spontaneous bacterial peritonitis. Patient was evaluated by Nephrology due psoas and started on albumin supplementation and bicarbonate drip. Review of Systems 2 Review of Systems: Yes Unobtainable due to mental status (Confused) Neurologic: Reports confusion Psychiatric: Psychiatric: Reports confusion [facility] Past Medical History Medical History Alcohol abuse with withdrawal Transaminitis Coagulopathy Acute respiratory failure with hypoxia COPD (chronic obstructive pulmonary disease) Hyperammonemia Thrombocytopenia Alcoholic cirrhosis of liver with ascites Pancytopenia Alcohol abuse Panic attacks 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) Hepatomegaly Microhematuria Polysubstance abuse Hand paresthesia COPD (chronic obstructive pulmonary disease) Anxiety Elevated rheumatoid factor Hepatitis C Family History Family History Father Family history of high blood pressure Mother Alive and well Surgical History Surgical History History of abdominal paracentesis History of esophagogastroduodenoscopy (EGD) (~02/2017) History of delivery Social History Social History Household Members: Other Household Members Other:: Son Housing: Apartment Do you presently have visiting nurse or other home services: Yes ([facility]) Alcohol intake: current Alcohol intake frequency: 0-2 drinks per day Alcohol type: beer Patient Tobacco Use Status: Current everyday Tobacco user Tobacco use type: Cigarette Cigarettes Per Day: 3 Smoked in Last 30 Days: Yes Patient Interested in Nicotine Replacement: Yes (Patch while in hospital) Patient Given Instructions on How to Stop Smoking: No (Declined) Second Hand Smoke Exposure: No Use of substances other than those prescribed or required for medical reasons: No Currently Displaying Signs/Symptoms of Drug Intoxication Withdrawal: No Any prior treatment program specific to substance use: No Have you been hit, kicked, punched, or otherwise hurt by someone within the past year? If so, by whom?: No Do you feel safe in your current relationship?: No Current Relationship Is there a partner from a previous relationship who is making you feel unsafe now?: No Are you made to feel afraid or neglected: No Spiritual Healthcare Practices: Religion Advance Directives: Yes Advance Directives Information Provided: No Advance Directives on File: Yes Advance Directives Date on File: 08/16/20 Do you have thoughts of harming others: None Do you have a plan to hurt others: No Plan Recently lost weight without trying: Unsure How much weight loss: Unsure Eating poorly because of decreased appetite: No Nutrition screen score: 4 Nutrition Risks: Emaciation/Cachexia Patient : No : No Poor oral hygiene: No service: No Current occupational status: unemployed Meds Allergies Allergy/AdvReac Type Severity Reaction Status Date / Time No Known Allergies Allergy Verified 03/29/23 11:22 Active Medications: Current Medications Albuterol Sulfate (Albuterol Sulfate 90 Mcg 8 Gm Inhaler) 2 puff INHALE Q4H PRN PRN Reason: Wheezing Albuterol/Ipratropium (Albuterol/Iprat 2.5/0.5mg 3 Ml Ampul.Neb) 3 ml INHALE QID PRN PRN Reason: Wheezing Baclofen (Baclofen 10 Mg Tablet) 10 mg PO BEDTIME PRN PRN Reason: muscle spasm Benzonatate (Benzonatate 100 Mg Capsule) 100 mg PO TID PRN PRN Reason: Cough Buprenorphine/Naloxone (Buprenorphine/Naloxone 8/2 Mg Film) 1 film BUCCAL DAILY [facility] Last Admin: 05/20/23 09:07 Dose: 1 film Calcium Carbonate/Cholecalciferol (Calcium + Vitamin D 250 Mg Tablet) 1,000 mg PO BEDTIME [facility] Last Admin: 05/19/23 21:57 Dose: 1,000 mg Docusate Sodium (Docusate Sodium 100 Mg Capsule) 100 mg PO DAILY PRN PRN Reason: Constipation Docusate Sodium (Docusate Sodium 100 Mg Capsule) 100 mg PO DAILY [facility] Last Admin: 05/20/23 09:08 Dose: Not Given Fluticasone Propionate (Fluticasone Propionate 250 Mcg Blst.W.Dev) 1 puff INHALE RBID [facility] Last Admin: 05/20/23 08:25 Dose: 1 puff Fluticasone Propionate (Fluticasone Propionate Nasal 16 Gm [place]) 1 spray NOSTRIL-B DAILY PRN PRN Reason: Congestion Last Admin: 05/19/23 21:59 Dose: 1 spray Folic Acid (Folic Acid 1 Mg Tablet) 1 mg PO DAILY [facility] Last Admin: 05/20/23 09:07 Dose: 1 mg Octreotide Acetate 500 mcg/ (Sodium Chloride) 501 mls @ 50.1 mls/hr IVCONT .Q10H [facility] Last Admin: 05/20/23 04:33 Dose: 50 mcg/hr, 50.1 mls/hr Pantoprazole Sodium 80 mg/ (Sodium Chloride) 100 mls @ 10 mls/hr IV .Q10H [facility] Stop: 05/20/23 11:59 Last Admin: 05/19/23 22:05 Dose: 8 mg/hr, 10 mls/hr Albumin Human (Kedbumin 25 %) 100 mls @ 100 mls/hr IV TID [facility] Stop: 05/21/23 09:59 Last Infusion: 05/20/23 10:20 Dose: Infused Ceftriaxone Sodium 2 gm/ (Sodium Chloride) 50 mls @ 100 mls/hr IV Q24H [facility] Last Infusion: 05/19/23 12:39 Dose: Infused Pantoprazole Sodium 80 mg/ (Sodium Chloride) 100 mls @ 10 mls/hr IV .Q10H [facility] Sodium Bicarbonate 150 meq/ (Dextrose) 1,000 mls @ 100 mls/hr IV .Q10H [facility] Lactulose (Lactulose 20 Gm/30 Ml Solution) 20 gm PO BID [facility] Last Admin: 05/20/23 09:08 Dose: Not Given Melatonin (Melatonin 3 Mg Tablet) 6 mg PO BEDTIME PRN PRN Reason: Insomnia Midodrine (Midodrine Hcl 10 Mg Tablet) 10 mg PO TID [facility] Last Admin: 05/20/23 09:07 Dose: 10 mg Multivitamins/Vitamin C (Multivitamin Tablet) 1 tab PO DAILY [facility] Last Admin: 05/20/23 09:08 Dose: 1 tab Ondansetron HCl (Ondansetron Hcl 4 Mg/2 Ml Vial) 4 mg IVPUSH Q8H PRN PRN Reason: Nausea and Vomiting Oxybutynin Chloride (Oxybutynin Chloride Er 5 Mg Tab.Er.24) 5 mg PO DAILY [facility] Last Admin: 05/20/23 09:07 Dose: 5 mg Rifaximin (Rifaximin 550 Mg Tablet) 550 mg PO BID [facility] Last Admin: 05/20/23 09:07 Dose: 550 mg Sertraline HCl (Sertraline Hcl 50 Mg Tablet) 150 mg PO DAILY@1200 [facility] Last Admin: 05/19/23 11:57 Dose: 150 mg Sodium Chloride (0.9 % Sodium Chloride Flush 3 Ml Syringe) 3 ml IVFLUSH QSHIFT [facility] Last Admin: 05/20/23 09:19 Dose: 3 ml Thiamine HCl (Thiamine Hcl 100 Mg Tablet) 100 mg PO DAILY [facility] Last Admin: 05/20/23 09:06 Dose: 100 mg Trazodone HCl (Trazodone Hcl 100 Mg Tablet) 100 mg PO BEDTIME [facility] Last Admin: 05/19/23 22:07 Dose: Not Given Vitamin D (Cholecalciferol (Vitamin D3) 25 Mcg Tablet) 50 mcg PO DAILY [facility] Last Admin: 05/20/23 09:07 Dose: 50 mcg Home Medications Medication Instructions Recorded Confirmed Last Taken Type buprenorphine 8 mg-naloxone 2 mg 1 film buccal DAILY 02/24/20 05/17/23 10/26/22 History sublingual film (Suboxone) multivitamin 1 tab PO DAILY 02/24/20 05/17/23 05/16/23 History sertraline 50 mg tablet 150 mg PO DAILY@1200 02/24/20 05/17/23 05/16/23 History trazodone 50 mg tablet 100 mg PO BEDTIME 02/24/20 05/17/23 05/16/23 History folic acid 1 mg tablet 1 tab PO QAM 05/15/22 05/17/23 05/16/23 History oxybutynin chloride 5 mg 1 tab PO QAM 05/15/22 05/17/23 05/16/23 History tablet,extended release 24 hr thiamine HCl (vitamin B1) 100 mg 1 tab PO QAM 05/15/22 05/17/23 05/16/23 History tablet baclofen 10 mg tablet 10 mg PO BEDTIME PRN muscle spasm 09/29/22 05/17/23 10/26/22 History ipratropium 20 mcg-albuterol 100 1 puff inhalation QID PRN Wheezing 09/29/22 05/17/23 10/26/22 History mcg/actuation mist for inhalation (Combivent Respimat) furosemide 40 mg tablet 40 mg PO BID@0900,1200 10/02/22 05/17/23 05/16/23 History omeprazole 20 mg capsule,delayed 20 mg PO BIDAC 10/02/22 05/17/23 05/16/23 History release spironolactone 25 mg tablet 100 mg PO DAILY 10/02/22 05/17/23 05/16/23 History albuterol sulfate 90 mcg/actuation 2 puff inhalation Q4-6H PRN 05/17/23 05/17/23 Unknown History aerosol inhaler (Ventolin HFA) Wheezing calcium carbonate 500 mg-vitamin 2 tab PO QPM 05/17/23 05/17/23 05/16/23 History D3 10 mcg (400 unit) tablet (Oyster Shell Calcium-Vitamin D3) docusate sodium 100 mg capsule 100 mg PO QAM 05/17/23 05/17/23 05/16/23 History fluticasone propionate 50 1 spray intranasal DAILY PRN 05/17/23 05/17/23 Unknown History mcg/actuation nasal Congestion spray,suspension lactulose 20 gram/30 mL oral 20 g PO BID PRN Constipation 05/17/23 05/17/23 Unknown History solution mometasone 200 mcg/actuation HFA 1 puff inhalation BID 05/17/23 05/17/23 05/16/23 History aerosol inhaler (Asmanex HFA) Physical Exam 2 Vital Signs: Vital Signs: Last Vital Signs Temp 97.6 F 05/20/23 08:00 Pulse 92 05/20/23 08:25 Resp 22 H 05/20/23 08:25 BP 143/85 H 05/20/23 08:00 Pulse Ox 96 05/20/23 08:00 O2 Del Method Nasal Cannula 05/20/23 08:00 O2 Flow Rate 4 05/20/23 08:00 BMI result Body Mass Index 24.8 Const: General: no acute distress, awake and confusion O rientation/consciousness: confusion Eyes: Sclerae: sclerae normal EOM: EOMs intact bilaterally Neck: Neck: Yes no lymphadenopathy, Yes trachea midline and Yes supple Resp: Effort & Inspection: normal respiratory effort and no respiratory distress Auscultation: clear to auscultation bilaterally Cardio: Rate: regular rate Rhythm: regular rhythm Heart sounds: no gallops, no murmurs and no rubs GI: Palpation (GI): Soft to palpation, nontender, No Rebound tenderness present and Other GI palpation findings present (Distended) Auscultation: n ormal bowel sounds Neuro: General: confusion Extrem: General: No clubbing, No cyanosis and Yes edema (Trace bilateral) Results Labs 05/20/23 05:32 05/20/23 05:32 Labs: Short CBC 05/20/23 Range/Units 05:32 WBC 8.5 (4.8-10.8) X10*3/uL Hgb 7.5 L (12.0-16.0) g/dl Hct 23.9 L (37.0-47.0) % Plt Count 25 L (160-400) X10*3/uL BMP 05/20/23 05:32 Sodium 145 Potassium 4.0 Chloride 118 H Carbon Dioxide 15 L BUN 116 H Creatinine 4.49 H* Calcium 8.2 L Liver Function 05/20/23 Range/Units 05:32 Total Bilirubin 1.6 H (0.0-1.0) mg/dL AST 17 (5-31) U/L ALT 7 (0-31) U/L Alkaline Phosphatase 57 (39-117) U/L Albumin 3.7 (3.5-5.0) g/dL Microbiology Microbiology Results: Microbiology 05/17/23 13:54 Blood - Venous Blood Culture - Final Streptococcus pneumoniae 05/17/23 13:39 Blood - Venous Blood Culture - Final Streptococcus pneumoniae 05/18/23 09:35 Ascites Fluid Gram Stain - Final 05/18/23 09:35 Ascites Fluid Routine Culture - Final No growth after 2 days 05/18/23 09:35 Ascites Fluid Anaerobic Culture - Preliminary No growth to date. 05/19/23 05:34 Blood - Venous Blood Culture - Preliminary No growth after 24 hours. 05/19/23 05:35 Blood - Venous Blood Culture - Preliminary No growth after 24 hours. Assessment and Plan (1) SBP (spontaneous bacterial peritonitis): Status: Acute (2) Metabolic acidosis: Status: Acute (3) Hepatorenal syndrome: Status: Acute Plan Impression: 57-year-old lady with underlying hep C/alcoholic cirrhosis admitted with decompensated ascites, hepatorenal syndrome, spontaneous bacterial peritonitis, now with worsening metabolic acidosis. Recommendations: Agree with colloidal support. Consider increasing bicarbonate to 3 amps at 150-200 cc per hour. Consider administering additional bicarbonate pushes. Recheck VBG in 2-3 hours. Continue empiric antibiotics for spontaneous bacterial peritonitis. Discussed with Dr. Pugh at 08:30 a.m. and again at 10:30 a.m.
[2023-05-20] MEDS: Sodium Bicarbonate 8.4% 50 MEQ/50 ML SYRINGE IVPUSH ×2 (11:26→11:52)
[2023-05-20] MEDS: Sodium Bicarbonate 8.4% 150 MEQ in Dextrose 5 % 850 ML 100 MEQ IV ×2 (11:54→22:23)
[2023-05-20] MEDS: cefTRIAXone sodium 2 GM in 0.9 % Sodium Chloride 50 ML IV (12:11)
[2023-05-20] MEDS: Pantoprazole Sodium 80 MG in 0.9 % Sodium Chloride 80 ML 10 MG IV ×2 (12:12→22:20)
[2023-05-20] MEDS: Sertraline HCL 50 MG TABLET 150 MG PO (12:13)
[2023-05-20 13:15] LABS: VBG Base Excess -9.6 mmol/L; VBG HCO3 16 mmol/L (22-26); VBG pCO2 35 mmHg; VBG pH 7.26 (7.32-7.43); VBG pO2 136 mmHg
[2023-05-20 13:15] LABS: Venous Blood Gas Refer to POC result
[2023-05-20 13:28] LABS: Anion Gap 16 (12-20); Blood Urea Nitrogen 114 mg/dL (9-16); Calcium 7.9 mg/dL (8.4-10.2); Carbon Dioxide 18 mmol/L (22-29); Chloride 118 mmol/L (96-108); Estimated Glomerular Filt Rate 11; Glucose Random 123 mg/dL (60-115); Potassium 3.7 mmol/L (3.3-5.1); Sodium 148 mmol/L (135-145)
[2023-05-20 21:34] LABS: VBG Base Excess -7.1 mmol/L; VBG HCO3 17 mmol/L (22-26); VBG pCO2 30 mmHg; VBG pH 7.36 (7.32-7.43); VBG pO2 197 mmHg
[2023-05-20 21:42] LABS: Venous Blood Gas Refer to POC result
[2023-05-21] VITALS (10 sets, daily range): BP systolic 158–192; BP diastolic 69–90; PULSE 74–96; RESP 14–22; TEMP 35.9–36.9; O2SAT 92–93
[2023-05-21] MEDS: Octreotide Acetate 500 MCG in 0.9 % Sodium Chloride 500 ML 50 MCG IVCONT ×2 (01:09→09:27)
[2023-05-21] MEDS: Fluticasone Propionate 250 MCG BLST.W.DEV 1 PUFF INHALE (07:35)
[2023-05-21 08:00] LABS: Glucose, Whole Blood 170 mg/dL (60-115)
[2023-05-21 08:21] LABS: VBG Base Excess -3.7 mmol/L; VBG HCO3 21 mmol/L (22-26); VBG pCO2 41 mmHg; VBG pH 7.32 (7.32-7.43); VBG pO2 123 mmHg
[2023-05-21 08:21] LABS: Mean Corpuscular HGB Conc 31.2 g/dl (31.0-35.0); Mean Corpuscular Hemoglobin 28.3 pg (27.0-33.0); Mean Corpuscular Volume 90.7 fL (80.0-98.0); Red Blood Count 2.26 X10*6/uL (4.20-5.50); Red Cell Distribution Width 18.9 % (11.0-16.0); Venous Blood Gas Refer to POC result; White Blood Count 6.1 X10*3/uL (4.8-10.8)
[2023-05-21 08:24] LABS: Prothrombin Time 23.9 SEC (11.1-13.3)
[2023-05-21 08:28] LABS: Platelet Count 22 X10*3/uL (160-400)
[2023-05-21 08:41] LABS: Alanine Aminotransferase 6 U/L (0-31); Albumin Level 3.7 g/dL (3.5-5.0); Alkaline Phosphatase 52 U/L (39-117); Anion Gap 14 (12-20); Aspartate Amino Transferase 14 U/L (5-31); Bilirubin Direct 1.2 mg/dL (0.0-0.5); Bilirubin Total 1.5 mg/dL (0.0-1.0); Blood Urea Nitrogen 112 mg/dL (9-16); Calcium 7.8 mg/dL (8.4-10.2); Carbon Dioxide 23 mmol/L (22-29); Chloride 115 mmol/L (96-108); Creatinine Clr Calc Pharmacy 10.5; Estimated Glomerular Filt Rate 10; Glucose Fasting 150 mg/dL (60-99); Glucose Random 149 mg/dL (60-115); Potassium 3.5 mmol/L (3.3-5.1); Sodium 148 mmol/L (135-145); Total Protein 6.4 g/dL (6.5-8.0)
--- NOTE | 2023-05-21 08:42 | P.PNIM_ITS ---
Subjective Subjective Date of Service: 05/21/23 Review of Systems Review of Systems: Yes Unobtainable due to mental condition Neurologic Neurologic: Reports confusion Psychiatric Psychiatric: Reports confusion Physical Exam 2 Vital Signs: Vital Signs: Last Vital Signs Temp 98.4 F 05/21/23 07:49 Pulse 87 05/21/23 07:49 Resp 22 H 05/21/23 07:49 BP 158/86 H 05/21/23 07:49 Pulse Ox 93 05/21/23 07:49 O2 Del Method Nasal Cannula 05/21/23 07:49 O2 Flow Rate 4 05/21/23 07:49 BMI result Body Mass Index 24.8 Const: General: no acute distress, awake and confusion O rientation/consciousness: confusion Eyes: Sclerae: sclerae normal EOM: EOMs intact bilaterally Neck: Neck: Yes no lymphadenopathy, Yes trachea midline and Yes supple Resp: Effort & Inspection: normal respiratory effort and no respiratory distress Auscultation: clear to auscultation bilaterally Cardio: Rate: regular rate Rhythm: regular rhythm Heart sounds: no gallops, no murmurs and no rubs GI: Palpation (GI): Soft to palpation, nontender, No Rebound tenderness present and Other GI palpation findings present (Distended) Auscultation: n ormal bowel sounds Neuro: General: confusion Extrem: General: No clubbing, No cyanosis and Yes edema (Trace bilateral) Objective Data Active Medications Albuterol Sulfate (Albuterol Sulfate 90 Mcg 8 Gm Inhaler) 2 puff INHALE Q4H PRN PRN Reason: Wheezing Albuterol/Ipratropium (Albuterol/Iprat 2.5/0.5mg 3 Ml Ampul.Neb) 3 ml INHALE QID PRN PRN Reason: Wheezing Baclofen (Baclofen 10 Mg Tablet) 10 mg PO BEDTIME PRN PRN Reason: muscle spasm Benzonatate (Benzonatate 100 Mg Capsule) 100 mg PO TID PRN PRN Reason: Cough Buprenorphine/Naloxone (Buprenorphine/Naloxone 8/2 Mg Film) 1 film BUCCAL DAILY [facility] Last Admin: 05/20/23 09:07 Dose: 1 film Documented By: ROSMERY Calcium Carbonate/Cholecalciferol (Calcium + Vitamin D 250 Mg Tablet) 1,000 mg PO BEDTIME [facility] Last Admin: 05/20/23 21:51 Dose: Not Given Documented By: ALY Non-Admin Reason: pt too lethargic per MD hold PO meds Docusate Sodium (Docusate Sodium 100 Mg Capsule) 100 mg PO DAILY PRN PRN Reason: Constipation Docusate Sodium (Docusate Sodium 100 Mg Capsule) 100 mg PO DAILY [facility] Last Admin: 05/20/23 09:08 Dose: Not Given Documented By: ROSMERY Non-Admin Reason: Patient Refused Fluticasone Propionate (Fluticasone Propionate 250 Mcg Blst.W.Dev) 1 puff INHALE RBID [facility] Last Admin: 05/21/23 07:35 Dose: 1 puff Documented By: RY Fluticasone Propionate (Fluticasone Propionate Nasal 16 Gm [place]) 1 spray NOSTRIL-B DAILY PRN PRN Reason: Congestion Last Admin: 05/19/23 21:59 Dose: 1 spray Documented By: BRIA Folic Acid (Folic Acid 1 Mg Tablet) 1 mg PO DAILY [facility] Last Admin: 05/20/23 09:07 Dose: 1 mg Documented By: ROSMERY Octreotide Acetate 500 mcg/ (Sodium Chloride) 501 mls @ 50.1 mls/hr IVCONT .Q10H [facility] Last Admin: 05/21/23 01:09 Dose: 49.9 mcg/hr, 50 mls/hr Documented By: ALY Albumin Human (Kedbumin 25 %) 100 mls @ 100 mls/hr IV TID [facility] Stop: 05/21/23 09:59 Last Infusion: 05/20/23 21:52 Dose: Infused Documented By: ALY Ceftriaxone Sodium 2 gm/ (Sodium Chloride) 50 mls @ 100 mls/hr IV Q24H [facility] Last Infusion: 05/20/23 12:45 Dose: Infused Documented By: ROSMERY Pantoprazole Sodium 80 mg/ (Sodium Chloride) 100 mls @ 10 mls/hr IV .Q10H [facility] Last Admin: 05/20/23 22:20 Dose: 8 mg/hr, 10 mls/hr Documented By: ALY Sodium Bicarbonate 150 meq/ (Dextrose) 1,000 mls @ 100 mls/hr IV .Q10H [facility] Last Admin: 05/20/23 22:23 Dose: 100 mls/hr Documented By: ALY Sodium Chloride (Ns) 100 mls @ 100 mls/hr IV ONCE ONE Stop: 05/21/23 09:34 Lactulose (Lactulose 20 Gm/30 Ml Solution) 20 gm PO BID [facility] Last Admin: 05/20/23 21:51 Dose: Not Given Documented By: ALY Non-Admin Reason: pt too lethargic per MD hold PO meds Melatonin (Melatonin 3 Mg Tablet) 6 mg PO BEDTIME PRN PRN Reason: Insomnia Midodrine (Midodrine Hcl 10 Mg Tablet) 10 mg PO TID [facility] Last Admin: 05/20/23 21:51 Dose: Not Given Documented By: ALY Non-Admin Reason: pt too lethargic per MD hold PO meds Multivitamins/Vitamin C (Multivitamin Tablet) 1 tab PO DAILY [facility] Last Admin: 05/20/23 09:08 Dose: 1 tab Documented By: ROSMERY Ondansetron HCl (Ondansetron Hcl 4 Mg/2 Ml Vial) 4 mg IVPUSH Q8H PRN PRN Reason: Nausea and Vomiting Oxybutynin Chloride (Oxybutynin Chloride Er 5 Mg Tab.Er.24) 5 mg PO DAILY [facility] Last Admin: 05/20/23 09:07 Dose: 5 mg Documented By: ROSMERY Rifaximin (Rifaximin 550 Mg Tablet) 550 mg PO BID [facility] Last Admin: 05/20/23 21:51 Dose: Not Given Documented By: AYL Non-Admin Reason: pt too lethargic per MD hold PO meds Sertraline HCl (Sertraline Hcl 50 Mg Tablet) 150 mg PO DAILY@1200 [facility] Last Admin: 05/20/23 12:13 Dose: 150 mg Documented By: ROSMERY Sodium Chloride (0.9 % Sodium Chloride Flush 3 Ml Syringe) 3 ml IVFLUSH QSHIFT [facility] Last Admin: 05/21/23 01:01 Dose: Not Given Documented By: ALY Non-Admin Reason: IV Running Thiamine HCl (Thiamine Hcl 100 Mg Tablet) 100 mg PO DAILY [facility] Last Admin: 05/20/23 09:06 Dose: 100 mg Documented By: ROSMERY Trazodone HCl (Trazodone Hcl 100 Mg Tablet) 100 mg PO BEDTIME [facility] Last Admin: 05/20/23 21:51 Dose: Not Given Documented By: ALY Non-Admin Reason: pt too lethargic per MD hold PO meds Vitamin D (Cholecalciferol (Vitamin D3) 25 Mcg Tablet) 50 mcg PO DAILY [facility] Last Admin: 05/20/23 09:07 Dose: 50 mcg Documented By: ROSMERY Labs 05/20/23 05:32 05/21/23 08:01 Labs: Laboratory Results - last 24 hr 05/20/23 05/20/23 05/20/23 11:00 13:04 13:08 PT INR VBG pH 7.39 7.26 L VBG pCO2 19 35 VBG pO2 214 136 VBG HCO3 12 L 16 L VBG O2 Saturation 100.0 99.0 VBG Base Excess -11.4 -9.6 Anion Gap 16 Estim Creat Clear Calc 11.0 Estimated GFR 11 POC Glucose Random Glucose 123 H Fasting Glucose Calcium 7.9 L Total Bilirubin Direct Bilirubin AST ALT Alkaline Phosphatase Total Protein Albumin 05/20/23 05/21/23 05/21/23 21:26 07:55 08:01 PT 23.9 H INR 2.0 H VBG pH 7.36 VBG pCO2 30 VBG pO2 197 VBG HCO3 17 L VBG O2 Saturation TNP VBG Base Excess -7.1 Anion Gap 14 Estim Creat Clear Calc 10.5 Estimated GFR 10 POC Glucose 170 H Random Glucose 149 H Fasting Glucose 150 H Calcium 7.8 L Total Bilirubin 1.5 H Direct Bilirubin 1.2 H AST 14 ALT 6 Alkaline Phosphatase 52 Total Protein 6.4 L Albumin 3.7 05/21/23 08:15 PT INR VBG pH 7.32 VBG pCO2 41 VBG pO2 123 VBG HCO3 21 L VBG O2 Saturation TNP VBG Base Excess -3.7 Anion Gap Estim Creat Clear Calc Estimated GFR POC Glucose Random Glucose Fasting Glucose Calcium Total Bilirubin Direct Bilirubin AST ALT Alkaline Phosphatase Total Protein Albumin Microbiology Microbiology Results: Microbiology 05/19/23 05:34 Blood Culture - Preliminary Blood - Venous No growth after 48 hours. 05/19/23 05:35 Blood Culture - Preliminary Blood - Venous No growth after 48 hours. 05/17/23 13:54 Blood Culture - Final Blood - Venous Streptococcus pneumoniae 05/17/23 13:39 Blood Culture - Final Blood - Venous Streptococcus pneumoniae 05/18/23 09:35 Gram Stain - Final Ascites Fluid Routine Culture - Final No growth after 2 days Anaerobic Culture - Preliminary No growth to date. Assessment and Plan (1) Ascites: Status: Acute Plan 57F PMH etoh/hcv cirrhosis, copd, opiate dependence, mood disorder presented with ams, echymosis, found to have vladimir decompensated etoh/hcv cirrhosis with symptomatic ascites, severe VLADIMIR, acute blood loss anemia, acute metabolic encephalopathy due to hepatic encephalopathy and uremia, further complicated by sepsis from SBP and strep pneumonia bacteremia s/p 1 unit prbc, hgb down to 6.4, will transfuse another unit vladimir likely ATN/hepatorenal continue octreotide, ppi, albumin, rocephin 2gm daily, midodrine monitor cbc, cmp s/p 1L paracentesis 05/18/23, positive for sbp lactulose for 2-3 bm/day, rifaximin gi and renal following monitor ciwa - no active withdrawal acute metabolic and respiratory acidosis resolved hypoernatremia d5w, monitor copd stable opiate dependence suboxone mood disorder zoloft dvt prophylaxis - mechanical due to gi bleed, thrombocytopenia full code - grave prognosis reason for continued hospitalization: vladimir, bactremia Quality Stroke Does the patient have a stroke diagnosis?: No VTE Prior VTE?: No VTE Risk Level:: Medical - moderate - high VTE Device Contraindication: N/A - Device Ordered VTE Drug Contraindication: Treatment Not Indicated
[2023-05-21 08:44] LABS: Hematocrit 20.5 % (37.0-47.0); Hemoglobin 6.4 g/dl (12.0-16.0)
[2023-05-21] MEDS: Thiamine HCL 100 MG TABLET PO (09:26)
[2023-05-21] MEDS: Multivitamin TABLET 1 TAB PO (09:26)
[2023-05-21] MEDS: rifAXIMin 550 MG TABLET PO (09:26)
[2023-05-21] MEDS: Docusate Sodium 100 MG CAPSULE PO (09:26)
[2023-05-21] MEDS: Cholecalciferol (Vitamin D3) 25 MCG TABLET 50 MCG PO (09:26)
[2023-05-21] MEDS: Lactulose 20 GM/30 ML SOLUTION PO ×2 (09:27→21:55)
[2023-05-21] MEDS: Folic Acid 1 MG TABLET PO (09:27)
[2023-05-21] MEDS: Buprenorphine/Naloxone 8/2 mg FILM 1 FILM BUCCAL (09:27)
[2023-05-21] MEDS: Midodrine HCl 10 MG TABLET PO ×2 (09:27→14:06)
--- NOTE | 2023-05-21 09:32 | P.PNNP_ITS ---
Subjective Subjective Date of Service: 05/21/23 Interval history: Lethargic - Wakes up to calls d Physical Exam 2 Vital Signs: Vital Signs: Last Vital Signs Temp 98.4 F 05/21/23 07:49 Pulse 87 05/21/23 07:49 Resp 22 H 05/21/23 07:49 BP 158/86 H 05/21/23 07:49 Pulse Ox 93 05/21/23 07:49 O2 Del Method Nasal Cannula 05/21/23 07:49 O2 Flow Rate 4 05/21/23 07:49 BMI result Body Mass Index 24.8 Const: General: no acute distress, awake and confusion O rientation/consciousness: confusion Eyes: Sclerae: sclerae normal EOM: EOMs intact bilaterally Neck: Neck: Yes no lymphadenopathy, Yes trachea midline and Yes supple Resp: Effort & Inspection: normal respiratory effort and no respiratory distress Auscultation: clear to auscultation bilaterally Cardio: Rate: regular rate Rhythm: regular rhythm Heart sounds: no gallops, no murmurs and no rubs GI: Palpation (GI): Soft to palpation, nontender, No Rebound tenderness present and Other GI palpation findings present (Distended) Auscultation: n ormal bowel sounds Neuro: General: confusion Extrem: General: No clubbing, No cyanosis and Yes edema (Trace bilateral) Objective Data Labs 05/21/23 08:01 05/21/23 08:01 Labs: Laboratory Results - last 24 hr 05/20/23 05/20/23 05/20/23 11:00 13:04 13:08 WBC RBC Hgb Hct MCV MCH MCHC RDW Plt Count MPV Absolute Nucleated RBC Nucleated RBC % (auto) PT INR VBG pH 7.39 7.26 L VBG pCO2 19 35 VBG pO2 214 136 VBG HCO3 12 L 16 L VBG O2 Saturation 100.0 99.0 VBG Base Excess -11.4 -9.6 Sodium 148 H Potassium 3.7 Chloride 118 H Carbon Dioxide 18 L Anion Gap 16 BUN 114 H Creatinine 4.34 H* Estim Creat Clear Calc 11.0 Estimated GFR 11 POC Glucose Random Glucose 123 H Fasting Glucose Calcium 7.9 L Total Bilirubin Direct Bilirubin AST ALT Alkaline Phosphatase Total Protein Albumin 05/20/23 05/21/23 05/21/23 21:26 07:55 08:01 WBC 6.1 RBC 2.26 L Hgb 6.4 L* Hct 20.5 L* MCV 90.7 MCH 28.3 MCHC 31.2 RDW 18.9 H Plt Count 22 L MPV Not Reportable Absolute Nucleated RBC 0.000 Nucleated RBC % (auto) 0.0 PT 23.9 H INR 2.0 H VBG pH 7.36 VBG pCO2 30 VBG pO2 197 VBG HCO3 17 L VBG O2 Saturation TNP VBG Base Excess -7.1 Sodium 148 H Potassium 3.5 Chloride 115 H Carbon Dioxide 23 Anion Gap 14 BUN 112 H Creatinine 4.52 H* Estim Creat Clear Calc 10.5 Estimated GFR 10 POC Glucose 170 H Random Glucose 149 H Fasting Glucose 150 H Calcium 7.8 L Total Bilirubin 1.5 H Direct Bilirubin 1.2 H AST 14 ALT 6 Alkaline Phosphatase 52 Total Protein 6.4 L Albumin 3.7 05/21/23 08:15 WBC RBC Hgb Hct MCV MCH MCHC RDW Plt Count MPV Absolute Nucleated RBC Nucleated RBC % (auto) PT INR VBG pH 7.32 VBG pCO2 41 VBG pO2 123 VBG HCO3 21 L VBG O2 Saturation TNP VBG Base Excess -3.7 Sodium Potassium Chloride Carbon Dioxide Anion Gap BUN Creatinine Estim Creat Clear Calc Estimated GFR POC Glucose Random Glucose Fasting Glucose Calcium Total Bilirubin Direct Bilirubin AST ALT Alkaline Phosphatase Total Protein Albumin Microbiology Microbiology Results: Microbiology 05/18/23 09:35 Ascites Fluid Gram Stain - Final 05/18/23 09:35 Ascites Fluid Routine Culture - Final No growth after 2 days 05/18/23 09:35 Ascites Fluid Anaerobic Culture - Preliminary No growth to date. 05/19/23 05:34 Blood - Venous Blood Culture - Preliminary No growth after 48 hours. 05/19/23 05:35 Blood - Venous Blood Culture - Preliminary No growth after 48 hours. 05/17/23 13:54 Blood - Venous Blood Culture - Final Streptococcus pneumoniae 05/17/23 13:39 Blood - Venous Blood Culture - Final Streptococcus pneumoniae Procedures Date of Service Date of Service: 05/21/23 Assessment & Plan Assessment and plan (1) Acute on chronic renal failure: Status: Acute (2) Acute kidney injury: Status: Acute (3) Encephalopathy, hepatic: Status: Acute (4) Ascites: Status: Acute (5) Sepsis: Status: Acute (6) Cirrhosis of liver with ascites: Status: Inactive Plan VLADIMIR due to pre renal state in the setting of liver cirrhosis supsect acute tubular injury/ HRS type 1 significant ascites with ? 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 Progress Note: Quality Stroke Does the patient have a stroke diagnosis?: No
[2023-05-21] MEDS: 0.9 % Sodium Chloride Flush 3 ML SYRINGE IVFLUSH ×2 (09:35→10:30)
[2023-05-21] MEDS: Albumin Human 25 % 100 ML IV (09:36)
[2023-05-21] MEDS: Pantoprazole Sodium 80 MG in 0.9 % Sodium Chloride 80 ML 10 MG IV ×2 (09:43→21:53)
[2023-05-21] MEDS: Octreotide Acetate 500 MCG in 0.9 % Sodium Chloride 500 ML 50.1 MCG IVCONT ×2 (10:17→21:53)
[2023-05-21] MEDS: oxyBUTYnin chloride ER 5 MG TAB.ER.24 PO (10:18)
--- NOTE | 2023-05-21 10:31 | MHC.CM.PN ---
Patient is not yet medically cleared for dc (IV Ceftriaxone, IV Protonix); Patient will benefit from a pt eval to assist with disposition. CM will follow.
[2023-05-21] MEDS: Dextrose 5 % 1,000 ML 50 ML IVCONT (10:41)
[2023-05-21] MEDS: cefTRIAXone sodium 2 GM in 0.9 % Sodium Chloride 50 ML IV (14:01)
[2023-05-21] MEDS: Sertraline HCL 50 MG TABLET 150 MG PO (14:01)
[2023-05-21 16:01] LABS: Glucose, Whole Blood 136 mg/dL (60-115)
[2023-05-22] VITALS (12 sets, daily range): BP systolic 133–186; BP diastolic 70–89; PULSE 78–100; RESP 11–20; TEMP 36.4–37; O2SAT 15–95
[2023-05-22] MEDS: Dextrose 5 % 1,000 ML 50 ML IVCONT (05:53)
[2023-05-22 06:31] LABS: INTERNATIONAL NORM RATIO 1.9 (0.9-1.1); Prothrombin Time 22.7 SEC (11.1-13.3)
[2023-05-22 06:33] LABS: Lactic Acid 0.7 mmol/L (0.5-2.0)
[2023-05-22 06:34] LABS: Hematocrit 25.5 % (37.0-47.0); Mean Corpuscular HGB Conc 31.4 g/dl (31.0-35.0); Mean Corpuscular Hemoglobin 28.3 pg (27.0-33.0); Mean Corpuscular Volume 90.1 fL (80.0-98.0); NRBC Pct Auto 0.3 /100WBC (0.0-0.2); Platelet Count 26 X10*3/uL (160-400); Red Blood Count 2.83 X10*6/uL (4.20-5.50); Red Cell Distribution Width 19.2 % (11.0-16.0); White Blood Count 7.1 X10*3/uL (4.8-10.8)
[2023-05-22 06:48] LABS: Alanine Aminotransferase 6 U/L (0-31); Albumin Level 3.7 g/dL (3.5-5.0); Alkaline Phosphatase 55 U/L (39-117); Anion Gap 17 (12-20); Aspartate Amino Transferase 17 U/L (5-31); Bilirubin Total 3.1 mg/dL (0.0-1.0); Blood Urea Nitrogen 115 mg/dL (9-16); Calcium 7.8 mg/dL (8.4-10.2); Carbon Dioxide 19 mmol/L (22-29); Chloride 116 mmol/L (96-108); Creatinine Clr Calc Pharmacy 10.5; Estimated Glomerular Filt Rate 10; Glucose Random 142 mg/dL (60-115); Magnesium 1.8 mg/dL (1.6-2.6); Potassium 3.7 mmol/L (3.3-5.1); Sodium 148 mmol/L (135-145); Total Protein 6.6 g/dL (6.5-8.0)
--- NOTE | 2023-05-22 06:49 | PC.NURSE ---
Patient lethargic at beginning of shift, however arousable to voice. MD notified, ordered lactulose TX if patient not able to take lactulose PO. Patient was able to take scheduled lactulose PO. Non-administered initial doses of lactulose TX.
[2023-05-22 07:06] LABS: Glucose, Whole Blood 162 mg/dL (60-115)
--- NOTE | 2023-05-22 08:21 | P.PNGI_ITS ---
Subjective Subjective Date of Service: 05/22/23 Interval History: Transferred to ICU for worsening mental and resp status. Seen at bedside. Son Weston present as well. Pt not following commands and grunting and groaning occasionally. Critical Care Time (minutes): 0 Physical Exam 2 Vital Signs: Vital Signs: Last Vital Signs Temp 97.6 F 05/22/23 07:13 Pulse 88 05/22/23 07:13 Resp 20 05/22/23 07:13 BP 147/83 H 05/22/23 07:13 Pulse Ox 95 05/22/23 07:13 O2 Del Method Oxymask 05/22/23 07:13 O2 Flow Rate 9 05/22/23 07:13 BMI result Body Mass Index 24.8 frail ill appearing cachectic abd distended, some wincing to palpation lethargic, does not respond to verbal cues. Objective Data Labs 05/23/23 04:48 05/23/23 04:48 Labs: Laboratory Results - last 24 hr 05/17/23 05/21/23 05/21/23 12:34 08:01 08:15 WBC 6.1 RBC 2.26 L Hgb 6.4 L* Hct 20.5 L* MCV 90.7 MCH 28.3 MCHC 31.2 RDW 18.9 H Plt Count 22 L MPV Not Reportable Absolute Nucleated RBC 0.000 Nucleated RBC % (auto) 0.0 Hold Purple Top PT 23.9 H INR 2.0 H VBG pH 7.32 VBG pCO2 41 VBG pO2 123 VBG HCO3 21 L VBG O2 Saturation TNP VBG Base Excess -3.7 Sodium 148 H Potassium 3.5 Chloride 115 H Carbon Dioxide 23 Anion Gap 14 BUN 112 H Creatinine 4.52 H* Estim Creat Clear Calc 10.5 Estimated GFR 10 POC Glucose Random Glucose 149 H Fasting Glucose 150 H Lactic Acid Calcium 7.8 L Magnesium Total Bilirubin 1.5 H Direct Bilirubin 1.2 H AST 14 ALT 6 Alkaline Phosphatase 52 Total Protein 6.4 L Albumin 3.7 Blood Type Antibody Screen Crossmatch See Detail 05/21/23 05/21/23 05/22/23 12:32 15:42 06:09 WBC 7.1 RBC 2.83 L D Hgb 8.0 L D Hct 25.5 L D MCV 90.1 MCH 28.3 MCHC 31.4 RDW 19.2 H Plt Count 26 L MPV Not Reportable Absolute Nucleated RBC 0.020 H Nucleated RBC % (auto) 0.3 H Hold Purple Top SEE NOTE PT 22.7 H INR 1.9 H VBG pH VBG pCO2 VBG pO2 VBG HCO3 VBG O2 Saturation VBG Base Excess Sodium 148 H Potassium 3.7 Chloride 116 H Carbon Dioxide 19 L Anion Gap 17 BUN 115 H Creatinine 4.52 H* Estim Creat Clear Calc 10.5 Estimated GFR 10 POC Glucose 136 H Random Glucose 142 H Fasting Glucose Lactic Acid 0.7 Calcium 7.8 L Magnesium 1.8 Total Bilirubin 3.1 H Direct Bilirubin AST 17 ALT 6 Alkaline Phosphatase 55 Total Protein 6.6 Albumin 3.7 Blood Type O Positive Antibody Screen NEGATIVE Crossmatch See Detail 05/22/23 06:59 WBC RBC Hgb Hct MCV MCH MCHC RDW Plt Count MPV Absolute Nucleated RBC Nucleated RBC % (auto) Hold Purple Top PT INR VBG pH VBG pCO2 VBG pO2 VBG HCO3 VBG O2 Saturation VBG Base Excess Sodium Potassium Chloride Carbon Dioxide Anion Gap BUN Creatinine Estim Creat Clear Calc Estimated GFR POC Glucose 162 H Random Glucose Fasting Glucose Lactic Acid Calcium Magnesium Total Bilirubin Direct Bilirubin AST ALT Alkaline Phosphatase Total Protein Albumin Blood Type Antibody Screen Crossmatch Microbiology Microbiology Results: Microbiology 05/18/23 09:35 Ascites Fluid Gram Stain - Final 05/18/23 09:35 Ascites Fluid Routine Culture - Final No growth after 2 days 05/18/23 09:35 Ascites Fluid Anaerobic Culture - Preliminary No growth to date. 05/19/23 05:34 Blood - Venous Blood Culture - Preliminary No growth after 48 hours. 05/19/23 05:35 Blood - Venous Blood Culture - Preliminary No growth after 48 hours. 05/17/23 13:54 Blood - Venous Blood Culture - Final Streptococcus pneumoniae 05/17/23 13:39 Blood - Venous Blood Culture - Final Streptococcus pneumoniae Procedures Date of Service Date of Service: 05/23/23 Progress Note: A&P Assessment and plan (1) Hepatorenal syndrome: Status: Acute (2) Acute on chronic renal failure: Status: Acute (3) Hepatic encephalopathy: Status: Acute (4) Hypoxic respiratory failure: Status: Acute (5) SBP (spontaneous bacterial peritonitis): Status: Acute (6) Ascites: Status: Acute (7) Sepsis: Status: Acute (8) Acute on chronic anemia: Status: Acute (9) Alcoholic cirrhosis of liver with ascites: Status: Acute Plan Pt with worsening renal function leading to acidosis and volume overload with possibly uremic encephalopathy. Overall poor prognosis since no recuperation of kidney function with volume challenge and not a dialysis candidate per renal. This was reviewed with the son at bedside as well that pt remains in critical condition and may not survive this admission. Son mentions that he saw this coming as pt kept drinking heavy amounts of etOH despite his counseling even up to the day of admission. Says he is not surprised she is this seriously ill now. - Recommend palliative/hospice consultation - Can consider repeat para up to 2L to offload fluid to see if Cr improves with decrease in abd pressure. - Cont ceftriaxone 2g IV for SBP dose, to be continued for 7 days. - Cont albumin and octreotide. Consider terlipressin if available in house. Time Spent With Patient Time: Total time managing care of this patient today ____ minutes. Quality Stroke Does the patient have a stroke diagnosis?: No VTE Prior VTE?: No VTE Risk Level:: Medical - moderate - high VTE Device Contraindication: N/A - Device Ordered VTE Drug Contraindication: Treatment Not Indicated
--- NOTE | 2023-05-22 09:20 | P.PNIM_ITS ---
Subjective Subjective Date of Service: 05/22/23 Interval History: weakness Physical Exam 2 Vital Signs: Vital Signs: Last Vital Signs Temp 97.6 F 05/22/23 07:13 Pulse 88 05/22/23 07:13 Resp 20 05/22/23 07:13 BP 147/83 H 05/22/23 07:13 Pulse Ox 95 05/22/23 07:13 O2 Del Method Oxymask 05/22/23 07:13 O2 Flow Rate 9 05/22/23 07:13 BMI result Body Mass Index 24.8 lethargic/obtunded, frail, ill appearing abd distended, non tender cachexic Objective Data Active Medications Albuterol Sulfate (Albuterol Sulfate 90 Mcg 8 Gm Inhaler) 2 puff INHALE Q4H PRN PRN Reason: Wheezing Albuterol/Ipratropium (Albuterol/Iprat 2.5/0.5mg 3 Ml Ampul.Neb) 3 ml INHALE QID PRN PRN Reason: Wheezing Baclofen (Baclofen 10 Mg Tablet) 10 mg PO BEDTIME PRN PRN Reason: muscle spasm Benzonatate (Benzonatate 100 Mg Capsule) 100 mg PO TID PRN PRN Reason: Cough Buprenorphine/Naloxone (Buprenorphine/Naloxone 8/2 Mg Film) 1 film BUCCAL DAILY [facility] Last Admin: 05/21/23 09:27 Dose: 1 film Documented By: NIGHAT Calcium Carbonate/Cholecalciferol (Calcium + Vitamin D 250 Mg Tablet) 1,000 mg PO BEDTIME [facility] Last Admin: 05/21/23 23:57 Dose: Not Given Documented By: ALY Non-Admin Reason: pt too drowsy Docusate Sodium (Docusate Sodium 100 Mg Capsule) 100 mg PO DAILY PRN PRN Reason: Constipation Docusate Sodium (Docusate Sodium 100 Mg Capsule) 100 mg PO DAILY [facility] Last Admin: 05/21/23 09:26 Dose: 100 mg Documented By: NIGHAT Fluticasone Propionate (Fluticasone Propionate 250 Mcg Blst.W.Dev) 1 puff INHALE RBID [facility] Last Admin: 05/22/23 07:31 Dose: Not Given Documented By: RY Non-Admin Reason: Patient Condition Contraindication Fluticasone Propionate (Fluticasone Propionate Nasal 16 Gm [place]) 1 spray NOSTRIL-B DAILY PRN PRN Reason: Congestion Last Admin: 05/19/23 21:59 Dose: 1 spray Documented By: BRIA Folic Acid (Folic Acid 1 Mg Tablet) 1 mg PO DAILY [facility] Last Admin: 05/21/23 09:27 Dose: 1 mg Documented By: NIGHAT Ceftriaxone Sodium 2 gm/ (Sodium Chloride) 50 mls @ 100 mls/hr IV Q24H [facility] Last Infusion: 05/21/23 14:38 Dose: Infused Documented By: NIGHAT Pantoprazole Sodium 80 mg/ (Sodium Chloride) 100 mls @ 10 mls/hr IV .Q10H [facility] Last Admin: 05/22/23 05:26 Dose: Not Given Documented By: ALY Non-Admin Reason: IV Running Dextrose (D5w) 1,000 mls @ 50 mls/hr IVCONT .Q20H [facility] Last Admin: 05/22/23 05:53 Dose: 50 mls/hr Documented By: ALY Octreotide Acetate 500 mcg/ (Sodium Chloride) 501 mls @ 50.1 mls/hr IVCONT .Q10H [facility] Last Admin: 05/22/23 07:04 Dose: Not Given Documented By: ALY Non-Admin Reason: IV Running Lactulose (Lactulose 20 Gm/30 Ml Solution) 20 gm PO BID [facility] Last Admin: 05/21/23 21:55 Dose: 20 gm Documented By: ALY Lactulose (Lactulose 320 Gm/480 Ml Solution) 200 gm VA Q4H [facility] Last Admin: 05/22/23 06:43 Dose: Not Given Documented By: ALY Non-Admin Reason: took PO lactulose Melatonin (Melatonin 3 Mg Tablet) 6 mg PO BEDTIME PRN PRN Reason: Insomnia Midodrine (Midodrine Hcl 10 Mg Tablet) 10 mg PO TID [facility] Last Admin: 05/21/23 23:57 Dose: Not Given Documented By: ALY Non-Admin Reason: pt too drowsy Multivitamins/Vitamin C (Multivitamin Tablet) 1 tab PO DAILY [facility] Last Admin: 05/21/23 09:26 Dose: 1 tab Documented By: NIGHAT Ondansetron HCl (Ondansetron Hcl 4 Mg/2 Ml Vial) 4 mg IVPUSH Q8H PRN PRN Reason: Nausea and Vomiting Oxybutynin Chloride (Oxybutynin Chloride Er 5 Mg Tab.Er.24) 5 mg PO DAILY [facility] Last Admin: 05/21/23 10:18 Dose: 5 mg Documented By: NIGHAT Rifaximin (Rifaximin 550 Mg Tablet) 550 mg PO BID [facility] Last Admin: 05/21/23 23:57 Dose: Not Given Documented By: ALY Non-Admin Reason: pt too drowsy Sertraline HCl (Sertraline Hcl 50 Mg Tablet) 150 mg PO DAILY@1200 [facility] Last Admin: 05/21/23 14:01 Dose: 150 mg Documented By: NIGHAT Sodium Chloride (0.9 % Sodium Chloride Flush 3 Ml Syringe) 3 ml IVFLUSH QSHIFT [facility] Last Admin: 05/22/23 01:50 Dose: Not Given Documented By: ALY Non-Admin Reason: IV Running Thiamine HCl (Thiamine Hcl 100 Mg Tablet) 100 mg PO DAILY [facility] Last Admin: 05/21/23 09:26 Dose: 100 mg Documented By: NIGHAT Trazodone HCl (Trazodone Hcl 100 Mg Tablet) 100 mg PO BEDTIME [facility] Last Admin: 05/21/23 21:58 Dose: Not Given Documented By: ALY Non-Admin Reason: pt drowsy Vitamin D (Cholecalciferol (Vitamin D3) 25 Mcg Tablet) 50 mcg PO DAILY [facility] Last Admin: 05/21/23 09:26 Dose: 50 mcg Documented By: NIGHAT Labs 05/22/23 06:09 05/22/23 06:09 Labs: Laboratory Results - last 24 hr 05/17/23 05/21/23 05/21/23 12:34 12:32 15:42 MCV MCH MCHC RDW Plt Count MPV Absolute Nucleated RBC Nucleated RBC % (auto) Hold Purple Top SEE NOTE PT INR Anion Gap Estim Creat Clear Calc Estimated GFR POC Glucose 136 H Random Glucose Lactic Acid Calcium Magnesium Total Bilirubin AST ALT Alkaline Phosphatase Total Protein Albumin Blood Type O Positive Antibody Screen NEGATIVE Crossmatch See Detail See Detail 05/22/23 05/22/23 06:09 06:59 MCV 90.1 MCH 28.3 MCHC 31.4 RDW 19.2 H Plt Count 26 L MPV Not Reportable Absolute Nucleated RBC 0.020 H Nucleated RBC % (auto) 0.3 H Hold Purple Top PT 22.7 H INR 1.9 H Anion Gap 17 Estim Creat Clear Calc 10.5 Estimated GFR 10 POC Glucose 162 H Random Glucose 142 H Lactic Acid 0.7 Calcium 7.8 L Magnesium 1.8 Total Bilirubin 3.1 H AST 17 ALT 6 Alkaline Phosphatase 55 Total Protein 6.6 Albumin 3.7 Blood Type Antibody Screen Crossmatch Microbiology Microbiology Results: Microbiology 05/18/23 09:35 Gram Stain - Final Ascites Fluid Routine Culture - Final No growth after 2 days Anaerobic Culture - Preliminary No growth to date. 05/19/23 05:34 Blood Culture - Preliminary Blood - Venous No growth after 48 hours. 05/19/23 05:35 Blood Culture - Preliminary Blood - Venous No growth after 48 hours. Assessment and Plan (1) Ascites: Status: Acute Plan 57F PMH etoh/hcv cirrhosis, copd, opiate dependence, mood disorder presented with ams, echymosis, found to have vladimir decompensated etoh/hcv cirrhosis with symptomatic ascites, severe VLADIMIR, acute blood loss anemia, acute metabolic encephalopathy due to hepatic encephalopathy and uremia, further complicated by sepsis from SBP and strep pneumonia bacteremia s/p 2 units total prbc, monitor hgb vladimir likely ATN/hepatorenal continue octreotide, ppi, albumin, rocephin 2gm daily, midodrine monitor cbc, cmp s/p 1L paracentesis 05/18/23, positive for sbp lactulose for 2-3 bm/day, rifaximin gi and renal following monitor ciwa - no active withdrawal worsening ascites, plan for additional paracentesis acute metabolic and respiratory acidosis resolved hypoernatremia d5w, monitor copd stable opiate dependence suboxone mood disorder zoloft dvt prophylaxis - mechanical due to gi bleed, thrombocytopenia full code - grave prognosis reason for continued hospitalization: vladimir, bactremia Quality Stroke Does the patient have a stroke diagnosis?: No VTE Prior VTE?: No VTE Risk Level:: Medical - moderate - high VTE Device Contraindication: N/A - Device Ordered VTE Drug Contraindication: Treatment Not Indicated
[2023-05-22] MEDS: Octreotide Acetate 500 MCG in 0.9 % Sodium Chloride 500 ML 50.1 MCG IVCONT (10:31)
[2023-05-22] MEDS: Pantoprazole Sodium 80 MG in 0.9 % Sodium Chloride 80 ML 10 MG IV (10:31)
[2023-05-22] MEDS: 0.9 % Sodium Chloride Flush 3 ML SYRINGE IVFLUSH ×2 (10:35→14:57)
[2023-05-22] MEDS: Buprenorphine/Naloxone 8/2 mg FILM 1 FILM BUCCAL (10:35)
[2023-05-22] MEDS: oxyBUTYnin chloride ER 5 MG TAB.ER.24 PO (10:36)
[2023-05-22] MEDS: cefTRIAXone sodium 2 GM in 0.9 % Sodium Chloride 50 ML IV (10:36)
[2023-05-22] MEDS: Cholecalciferol (Vitamin D3) 25 MCG TABLET 50 MCG PO (10:36)
[2023-05-22] MEDS: Thiamine HCL 100 MG TABLET PO (10:37)
[2023-05-22] MEDS: Folic Acid 1 MG TABLET PO (10:37)
[2023-05-22] MEDS: Midodrine HCl 10 MG TABLET PO (10:37)
[2023-05-22] MEDS: Multivitamin TABLET 1 TAB PO (10:37)
[2023-05-22] MEDS: Sertraline HCL 50 MG TABLET 150 MG PO (10:37)
[2023-05-22] MEDS: rifAXIMin 550 MG TABLET PO (10:37)
[2023-05-22] MEDS: Docusate Sodium 100 MG CAPSULE PO (10:37)
[2023-05-22] MEDS: Fluticasone Propionate Nasal 16 GM SPRAY 1 SPRAY NOSTRIL-B (10:38)
[2023-05-22] MEDS: Lactulose 20 GM/30 ML SOLUTION PO (10:38)
[2023-05-22 11:00] LABS: Glucose, Whole Blood 134 mg/dL (60-115)
[2023-05-22 12:36] LABS: Venous Blood Gas Refer to POC result
[2023-05-22 12:37] LABS: VBG Base Excess -7.7 mmol/L; VBG HCO3 20 mmol/L (22-26); VBG pCO2 54 mmHg; VBG pH 7.17 (7.32-7.43); VBG pO2 66 mmHg
--- NOTE | 2023-05-22 14:22 | MHC.CM.PN ---
Pt transferred to ICU for sepsis and high O2 needs: pt obtunded and unable to give information. Per review of notes, pt resides w/son and seems to have self care neglect in the setting of ongoing ETOH abuse. CM to follow for finalization of d/c needs once pt is medically stable.
[2023-05-22] MEDS: Bumetanide 1 MG/4 ML VIAL IVPUSH (14:54)
--- NOTE | 2023-05-22 15:21 | P.PNCC_ITS ---
Subjective Subjective Date of Service: 05/22/23 Interval History: 57-year-old lady with underlying alcoholic/hep C cirrhosis with continuation of alcohol abuse requiring weekly paracentesis, COPD, hypotension admitted on 05/17/2023 with alteration of mental status, worsening ascites: Colitis. Hospital course further complicated by spontaneous bacterial peritonitis and hepatorenal syndrome with worsening metabolic acidosis. Patient was continued on lactulose and Xifaxan, started on ceftriaxone for spontaneous bacterial peritonitis. Patient was evaluated by Nephrology due psoas and started on albumin supplementation and bicarbonate drip. Patient with waxing waning mental and metabolic status, today with worsening metabolic acidosis requiring transfer to intensive care unit. Critical Care Time (minutes): 60 Physical Exam 2 Vital Signs: Vital Signs: Last Vital Signs Temp 97.6 F 05/22/23 11:08 Pulse 91 05/22/23 11:08 Resp 20 05/22/23 11:08 BP 158/80 H 05/22/23 11:08 Pulse Ox 94 05/22/23 11:08 O2 Del Method Oxymask 05/22/23 11:08 O2 Flow Rate 10 05/22/23 11:08 BMI result Body Mass Index 24.8 Const: General: no acute distress and lethargic (Arousable) O rientation/consciousness: lethargic (Arousable) Eyes: Sclerae: sclerae normal EOM: EOMs intact bilaterally Neck: Neck: Yes no lymphadenopathy, Yes trachea midline and Yes supple Resp: Effort & Inspection: normal respiratory effort and no respiratory distress Auscultation: crackles (Bilateral) Cardio: Rate: regular rate Rhythm: regular rhythm Heart sounds: no gallops, no murmurs and no rubs GI: Palpation (GI): Soft to palpation, Firmness to palpation present (GI), Tenderness to palpation present (GI) (Mild general), no guarding, not rigid and Other GI palpation findings present ( Nontender) Auscultation: normal bowel sounds Extrem: General: No clubbing, No cyanosis and Yes edema (1+ bilateral) Objective Data Labs 05/22/23 06:09 05/22/23 06:09 Labs: Laboratory Results - last 24 hr 05/21/23 05/21/23 05/22/23 12:32 15:42 06:09 WBC 7.1 RBC 2.83 L D Hgb 8.0 L D Hct 25.5 L D MCV 90.1 MCH 28.3 MCHC 31.4 RDW 19.2 H Plt Count 26 L MPV Not Reportable Absolute Nucleated RBC 0.020 H Nucleated RBC % (auto) 0.3 H PT 22.7 H INR 1.9 H VBG pH VBG pCO2 VBG pO2 VBG HCO3 VBG O2 Saturation VBG Base Excess Sodium 148 H Potassium 3.7 Chloride 116 H Carbon Dioxide 19 L Anion Gap 17 BUN 115 H Creatinine 4.52 H* Estim Creat Clear Calc 10.5 Estimated GFR 10 POC Glucose 136 H Random Glucose 142 H Lactic Acid 0.7 Calcium 7.8 L Magnesium 1.8 Total Bilirubin 3.1 H AST 17 ALT 6 Alkaline Phosphatase 55 Total Protein 6.6 Albumin 3.7 Crossmatch See Detail 05/22/23 05/22/23 05/22/23 06:59 10:54 12:25 WBC RBC Hgb Hct MCV MCH MCHC RDW Plt Count MPV Absolute Nucleated RBC Nucleated RBC % (auto) PT INR VBG pH 7.17 L* VBG pCO2 54 VBG pO2 66 VBG HCO3 20 L VBG O2 Saturation 90.0 VBG Base Excess -7.7 Sodium Potassium Chloride Carbon Dioxide Anion Gap BUN Creatinine Estim Creat Clear Calc Estimated GFR POC Glucose 162 H 134 H Random Glucose Lactic Acid Calcium Magnesium Total Bilirubin AST ALT Alkaline Phosphatase Total Protein Albumin Crossmatch Microbiology Microbiology Results: Microbiology 05/18/23 09:35 Ascites Fluid Gram Stain - Final 05/18/23 09:35 Ascites Fluid Routine Culture - Final No growth after 2 days 05/18/23 09:35 Ascites Fluid Anaerobic Culture - Preliminary No growth to date. 05/19/23 05:34 Blood - Venous Blood Culture - Preliminary No growth after 48 hours. 05/19/23 05:35 Blood - Venous Blood Culture - Preliminary No growth after 48 hours. 05/17/23 13:54 Blood - Venous Blood Culture - Final Streptococcus pneumoniae 05/17/23 13:39 Blood - Venous Blood Culture - Final Streptococcus pneumoniae Progress Note: A&P Assessment and plan (1) Hepatorenal syndrome: Status: Acute (2) Metabolic acidosis: Status: Acute (3) SBP (spontaneous bacterial peritonitis): Status: Acute (4) Acute on chronic renal failure: Status: Acute (5) Encephalopathy, hepatic: Status: Acute (6) Alcoholic cirrhosis of liver with ascites: Status: Acute (7) Hepatitis C: Status: Acute Plan Assessment: 57-year-old lady with alcoholic/hep C cirrhosis on weekly paracentesis, admitted with spontaneous bacterial peritonitis and decompensated cirrhosis resulting in hepatorenal syndrome Plan: Neuro: Hepatic encephalopathy, continue lactulose and Xifaxan. Cardiac: No acute issues. Pulmonary: Acute hypoxic respiratory failure secondary to pulmonary edema on a background of hepatorenal syndrome. Continue to titrate off supplemental oxygen as tolerated. Renal: Acute on chronic renal failure with metabolic acidosis secondary to hepatorenal syndrome. Non oliguric. Continue to monitor renal indices. Start on diuretic. Endo: No acute issues. GI: Hep C/alcohol decompensated cirrhosis with hepatorenal syndrome. Continue on colloidal support. ID: Spontaneous bacterial peritonitis, continue ceftriaxone. Heme/Onc: No acute issues. Psych: No acute issues. Miscellaneous: No acute issues. Prophylaxis: Pneumatic compression Diet: Low-sodium Critical care time spent: Quality Stroke Does the patient have a stroke diagnosis?: No VTE Prior VTE?: No VTE Risk Level:: Medical - moderate - high VTE Device Contraindication: N/A - Device Ordered VTE Drug Contraindication: Treatment Not Indicated
--- NOTE | 2023-05-22 15:24 | P.CDIM_ITS ---
PROVIDER RESPONSE TEXT: To clarify, the appropriate diagnosis supported by the clinical indicators: CKD stage 4 QUERY TEXT: PHYSICIAN'S DOCUMENTATION REQUEST Date of Query: 05/22/2023 02:14 PM EST Patient Name: Rosalinda Ashley Admit Date: 05/17/2023 Dear Peter Santos, A review of the medical record indicates additional documentation may be needed. Please review below and update the documentation accordingly. Clinical Indicators: Per Nephrology Progress Note 05/21/23: not c/w HRS-VLADIMIR probably underlying HRS-CKD On 05/20/23: BUN 114, Creatinine 4.34, Est GFR 11 Please clarify which of the following accurately represents the patient's renal status: CKD stage 1 CKD stage 2 CKD stage 3 CKD stage 4 CKD stage 5 Other (explain) Clinically unable to determine (explain) Thank you, Susanne Hart RN Use of terms such as suspected, likely, concern for, or probable (associated with a specific diagnosi s that is being evaluated, monitored, or treated as if it exists) are acceptable and can be coded in the inpatient se tting, when documented at the time of discharge. Please use your independent medical judgment in providing your response. THIS QUERY IS PART OF THE PERMANENT MEDICAL RECORD
[2023-05-22] MEDS: Lactulose 320 GM/480 ML SOLUTION 200 GM PR ×2 (16:38→21:34)
[2023-05-22] MEDS: Sodium Bicarbonate 8.4% 50 MEQ/50 ML VIAL IVPUSH ×2 (16:46→20:24)
[2023-05-22] MEDS: Pantoprazole Sodium 40 MG/10 ML VIAL IVPUSH (16:46)
[2023-05-22 20:23] LABS: ABG Base Excess -4.4 mmol/L; ABG HCO3 22 mmol/L (22-26); ABG pCO2 51 mmHg (32-45); ABG pH 7.24 (7.35-7.45); ABG pO2 59 mmHg (83-108)
[2023-05-22 23:06] LABS: ABG Refer to POC result
[2023-05-23] VITALS (24 sets, daily range): BP systolic 123–169; BP diastolic 67–89; PULSE 66–105; RESP 11–20; TEMP 36.1–36.9; O2SAT 85–100; BMI 30.3
[2023-05-23] MEDS: 0.9 % Sodium Chloride Flush 3 ML SYRINGE IVFLUSH ×2 (00:08→23:41)
[2023-05-23] MEDS: Sodium Bicarbonate 8.4% 50 MEQ/50 ML VIAL IVPUSH ×5 (00:08→23:41)
[2023-05-23] MEDS: Lactulose 320 GM/480 ML SOLUTION 200 GM PR ×2 (03:43→09:01)
[2023-05-23 04:56] LABS: VBG Base Excess -2.3 mmol/L; VBG HCO3 26 mmol/L (22-26); VBG pCO2 72 mmHg; VBG pH 7.17 (7.32-7.43); VBG pO2 137 mmHg
[2023-05-23 05:01] LABS: PLT ABN DIST 1
[2023-05-23 05:03] LABS: Hematocrit 27.1 % (37.0-47.0); Hemoglobin 8.3 g/dl (12.0-16.0); Mean Corpuscular HGB Conc 30.6 g/dl (31.0-35.0); Mean Corpuscular Hemoglobin 27.5 pg (27.0-33.0); Mean Corpuscular Volume 89.7 fL (80.0-98.0); NRBC Pct Auto 0.3 /100WBC (0.0-0.2); Red Blood Count 3.02 X10*6/uL (4.20-5.50); Red Cell Distribution Width 19.6 % (11.0-16.0); White Blood Count 9.5 X10*3/uL (4.8-10.8)
[2023-05-23 05:09] LABS: INTERNATIONAL NORM RATIO 1.9 (0.9-1.1); Platelet Count 30 X10*3/uL (160-400); Prothrombin Time 22.7 SEC (11.1-13.3)
[2023-05-23 05:18] LABS: Venous Blood Gas Refer to POC result
[2023-05-23 05:23] LABS: Alanine Aminotransferase 8 U/L (0-31); Albumin Level 3.5 g/dL (3.5-5.0); Alkaline Phosphatase 62 U/L (39-117); Anion Gap 17 (12-20); Aspartate Amino Transferase 24 U/L (5-31); Bilirubin Direct 1.7 mg/dL (0.0-0.5); Bilirubin Total 2.3 mg/dL (0.0-1.0); Blood Urea Nitrogen 124 mg/dL (9-16); Calcium 8.1 mg/dL (8.4-10.2); Carbon Dioxide 25 mmol/L (22-29); Chloride 115 mmol/L (96-108); Creatinine Clr Calc Pharmacy 10.3; Estimated Glomerular Filt Rate 10; Glucose Fasting 105 mg/dL (60-99); Magnesium 1.8 mg/dL (1.6-2.6); Potassium 3.6 mmol/L (3.3-5.1); Sodium 153 mmol/L (135-145); Total Protein 6.8 g/dL (6.5-8.0)
[2023-05-23] MEDS: Pantoprazole Sodium 40 MG/10 ML VIAL IVPUSH ×2 (05:46→16:10)
[2023-05-23] MEDS: Calcium Gluconate/NaCl,Iso-Osm 1 GM/50 ML PLAST..BAG IV (06:06)
[2023-05-23 08:37] LABS: VBG HCO3 26 mmol/L (22-26); VBG pCO2 58 mmHg; VBG pH 7.26 (7.32-7.43); VBG pO2 82 mmHg
[2023-05-23] MEDS: Bumetanide 1 MG/4 ML VIAL IVPUSH (09:28)
[2023-05-23] MEDS: Dextrose 5 % 1,000 ML 150 ML IVCONT ×2 (09:28→16:10)
--- NOTE | 2023-05-23 09:48 | PC.RT ---
Pt off bipap per MD, placed on 5 lpm humidifed jolly n/c. RN aware.
--- NOTE | 2023-05-23 10:21 | P.PNCC_ITS ---
Subjective Subjective Date of Service: 05/23/23 Interval History: 57-year-old lady with underlying alcoholic/hep C cirrhosis with continuation of alcohol abuse requiring weekly paracentesis, COPD, hypotension admitted on 05/17/2023 with alteration of mental status, worsening ascites: Colitis. Hospital course further complicated by spontaneous bacterial peritonitis and hepatorenal syndrome with worsening metabolic acidosis. Patient was continued on lactulose and Xifaxan, started on ceftriaxone for spontaneous bacterial peritonitis. Patient was evaluated by Nephrology due psoas and started on albumin supplementation and bicarbonate drip. Patient with waxing waning mental and metabolic status, today with worsening metabolic acidosis requiring transfer to intensive care unit. No events overnight. Metabolic acidosis is improving. Critical Care Time (minutes): 60 Physical Exam 2 Vital Signs: Vital Signs: Last Vital Signs Temp 97.5 F 05/23/23 08:00 Pulse 82 05/23/23 10:00 Resp 13 05/23/23 10:00 BP 135/72 05/23/23 10:00 Pulse Ox 96 05/23/23 10:00 O2 Del Method Nasal Cannula wit h Capnography 05/23/23 10:00 O2 Flow Rate 5 05/23/23 10:00 FiO2 50 05/23/23 08:00 BMI result Body Mass Index 30.3 Const: General: no acute distress and lethargic (arousable) O rientation/consciousness: lethargic (arousable) Eyes: Sclerae: sclerae normal EOM: EOMs intact bilaterally Neck: Neck: Yes no lymphadenopathy, Yes trachea midline and Yes supple Resp: Effort & Inspection: normal respiratory effort and no respiratory distress Auscultation: clear to auscultation bilaterally Cardio: Rate: regular rate Rhythm: regular rhythm Heart sounds: no gallops, no murmurs and no rubs GI: Palpation (GI): Soft to palpation, Firmness to palpation present (GI) and Other GI palpation findings present (distended) Auscultation: normal bowel sounds Extrem: General: No clubbing, No cyanosis and Yes edema (1+ bilateral) Objective Data Labs 05/23/23 04:48 05/23/23 04:48 Labs: Laboratory Results - last 24 hr 05/22/23 05/22/23 05/22/23 10:54 12:25 20:16 WBC RBC Hgb Hct MCV MCH MCHC RDW Plt Count MPV Absolute Nucleated RBC Nucleated RBC % (auto) PT INR O2 Saturation 87.0 ABG pH at Pt Temp 7.24 L ABG pCO2 at Pt Temp 51 H ABG pO2 at Pt Temp 59 L ABG HCO3 22 ABG Base Excess (Actual) -4.4 VBG pH 7.17 L* VBG pCO2 54 VBG pO2 66 VBG HCO3 20 L VBG O2 Saturation 90.0 VBG Base Excess -7.7 Sodium Potassium Chloride Carbon Dioxide Anion Gap BUN Creatinine Estim Creat Clear Calc Estimated GFR POC Glucose 134 H Fasting Glucose Calcium Phosphorus Magnesium Total Bilirubin Direct Bilirubin AST ALT Alkaline Phosphatase Total Protein Albumin 05/23/23 05/23/23 05/23/23 04:48 04:49 08:30 WBC 9.5 RBC 3.02 L Hgb 8.3 L Hct 27.1 L MCV 89.7 MCH 27.5 MCHC 30.6 L RDW 19.6 H Plt Count 30 L MPV Not Reportable Absolute Nucleated RBC 0.030 H Nucleated RBC % (auto) 0.3 H PT 22.7 H INR 1.9 H O2 Saturation ABG pH at Pt Temp ABG pCO2 at Pt Temp ABG pO2 at Pt Temp ABG HCO3 ABG Base Excess (Actual) VBG pH 7.17 L* 7.26 L VBG pCO2 72 58 VBG pO2 137 82 VBG HCO3 26 26 VBG O2 Saturation 99.0 96.0 VBG Base Excess -2.3 -1.0 Sodium 153 H Potassium 3.6 Chloride 115 H Carbon Dioxide 25 Anion Gap 17 BUN 124 H Creatinine 4.64 H* Estim Creat Clear Calc 10.3 Estimated GFR 10 POC Glucose Fasting Glucose 105 H Calcium 8.1 L Phosphorus 9.0 H Magnesium 1.8 Total Bilirubin 2.3 H Direct Bilirubin 1.7 H AST 24 ALT 8 Alkaline Phosphatase 62 Total Protein 6.8 Albumin 3.5 Microbiology Microbiology Results: Microbiology 05/18/23 09:35 Ascites Fluid Gram Stain - Final 05/18/23 09:35 Ascites Fluid Routine Culture - Final No growth after 2 days 05/18/23 09:35 Ascites Fluid Anaerobic Culture - Final NO GROWTH AFTER 5 DAYS 05/19/23 05:34 Blood - Venous Blood Culture - Preliminary No growth after 48 hours. 05/19/23 05:35 Blood - Venous Blood Culture - Preliminary No growth after 48 hours. 05/17/23 13:54 Blood - Venous Blood Culture - Final Streptococcus pneumoniae 05/17/23 13:39 Blood - Venous Blood Culture - Final Streptococcus pneumoniae Progress Note: A&P Assessment and plan (1) Hypoxic respiratory failure: Status: Acute (2) Hepatorenal syndrome: Status: Acute (3) SBP (spontaneous bacterial peritonitis): Status: Acute (4) Acute on chronic renal failure: Status: Acute (5) Ascites: Status: Acute (6) Hepatitis C: Status: Acute (7) Alcoholic cirrhosis of liver with ascites: Status: Acute Plan Assessment: 57-year-old lady with alcoholic/hep C cirrhosis on weekly paracentesis, admitted with spontaneous bacterial peritonitis and decompensated cirrhosis resulting in hepatorenal syndrome Plan: Neuro: Hepatic encephalopathy, continue lactulose and Xifaxan. Cardiac: No acute issues. Pulmonary: Acute hypoxic respiratory failure secondary to pulmonary edema on a background of hepatorenal syndrome. Continue to titrate off supplemental oxygen as tolerated. Renal: Acute on chronic renal failure with metabolic acidosis secondary to hepatorenal syndrome. Non oliguric. Continue to monitor renal indices. Start lasix/spironalactone. Endo: No acute issues. GI: Hep C/alcohol decompensated cirrhosis with hepatorenal syndrome. Continue on colloidal support. ID: Spontaneous bacterial peritonitis, continue ceftriaxone. Heme/Onc: No acute issues. Psych: No acute issues. Miscellaneous: No acute issues. Prophylaxis: Pneumatic compression Diet: Low-sodium Critical care time spent: 60 minutes Quality Stroke Does the patient have a stroke diagnosis?: No VTE Prior VTE?: No VTE Risk Level:: Medical - moderate - high VTE Device Contraindication: N/A - Device Ordered VTE Drug Contraindication: Treatment Not Indicated
[2023-05-23 10:42] LABS: Venous Blood Gas Refer to POC result
[2023-05-23] MEDS: cefTRIAXone sodium 2 GM in 0.9 % Sodium Chloride 50 ML IV (12:05)
[2023-05-23] MEDS: Lidocaine HCl 1 % MPF 5 ML VIAL SUBCUT (12:43)
[2023-05-23] MEDS: Midodrine HCl 5 MG TABLET PO (16:10)
--- NOTE | 2023-05-23 16:15 | PC.NURSE ---
pt passed bedside swallow eval. informed
[2023-05-23 16:20] LABS: VBG Base Excess -8.4 mmol/L; VBG HCO3 16 mmol/L (22-26); VBG pCO2 32 mmHg; VBG pH 7.31 (7.32-7.43); VBG pO2 195 mmHg
[2023-05-23 16:21] LABS: Venous Blood Gas Refer to POC result
[2023-05-23] MEDS: rifAXIMin 550 MG TABLET PO (23:41)
[2023-05-24] VITALS (9 sets, daily range): BP systolic 121–161; BP diastolic 62–82; PULSE 68–92; RESP 16–18; TEMP 36.1–36.7; O2SAT 95–100; BMI 29.9
[2023-05-24 06:08] LABS: Venous Blood Gas Refer to POC result
[2023-05-24 06:09] LABS: VBG Base Excess 5.6 mmol/L; VBG HCO3 30 mmol/L (22-26); VBG pCO2 49 mmHg; VBG pO2 60 mmHg
[2023-05-24] MEDS: Pantoprazole Sodium 40 MG/10 ML VIAL IVPUSH ×2 (06:24→16:52)
[2023-05-24 06:37] LABS: Imm Gran Abs Auto 0.06 X10*3/uL (0.00-0.03); Imm Gran Pct Auto 0.7 % (0.0-0.4); Lymphocytes Absolute Auto 0.4 X10*3/uL (1.2-4.9); Lymphocytes Percent Auto 4.4 % (20-40); MANUAL DIFF FLAG SCAN; Mean Corpuscular HGB Conc 31.7 g/dl (31.0-35.0); Mean Corpuscular Hemoglobin 27.5 pg (27.0-33.0); Mean Corpuscular Volume 86.7 fL (80.0-98.0); Monocytes Absolute Auto 0.2 X10*3/uL (0.1-1.2); Monocytes Percent Auto 2.6 % (2-11); NRBC Pct Auto 0.2 /100WBC (0.0-0.2); Neutrophils Absolute Auto 7.5 x10*3/uL (2.0-8.3); Neutrophils Percent Auto 92.3 % (45-73); Red Blood Count 2.33 X10*6/uL (4.20-5.50); Red Cell Distribution Width 18.9 % (11.0-16.0); SCAN SMEAR FLAG 1; White Blood Count 8.1 X10*3/uL (4.8-10.8)
[2023-05-24 06:38] LABS: Alanine Aminotransferase 7 U/L (0-31); Albumin Level 2.9 g/dL (3.5-5.0); Alkaline Phosphatase 54 U/L (39-117); Anion Gap 19 (12-20); Aspartate Amino Transferase 25 U/L (5-31); Calcium 7.9 mg/dL (8.4-10.2); Carbon Dioxide 26 mmol/L (22-29); Chloride 113 mmol/L (96-108); Creatinine Clr Calc Pharmacy 11.7; Estimated Glomerular Filt Rate 10; Glucose Random 152 mg/dL (60-115); Magnesium 1.8 mg/dL (1.6-2.6); Phosphorus 8.1 mg/dL (2.7-4.5); Potassium 3.3 mmol/L (3.3-5.1); Sodium 155 mmol/L (135-145); Total Protein 5.8 g/dL (6.5-8.0)
[2023-05-24 07:16] LABS: Hemoglobin 6.4 g/dl (12.0-16.0)
[2023-05-24 07:17] LABS: Hematocrit 20.2 % (37.0-47.0); Platelet Count 32 X10*3/uL (160-400)
[2023-05-24 07:19] LABS: SLIDE REVIEW VERIFIED
[2023-05-24 07:41] LABS: Blood Urea Nitrogen 121 mg/dL (9-16)
[2023-05-24] MEDS: 0.9 % Sodium Chloride Flush 3 ML SYRINGE IVFLUSH ×3 (09:45→21:11)
[2023-05-24] MEDS: Sodium Bicarbonate 8.4% 50 MEQ/50 ML VIAL IVPUSH (09:46)
--- NOTE | 2023-05-24 10:35 | P.PNIM_ITS ---
Subjective Subjective Date of Service: 05/24/23 Interval History: seen and examined this morning patient awake and alert at first but then became more sleepy she was able to state her name and that she was at [facility] attempted to discuss severity of illness, she did not appear to have good understanding of medical condition unable to obtain full ROS Physical Exam 2 Vital Signs: Vital Signs: Last Vital Signs Temp 98.1 F 05/24/23 09:56 Pulse 86 05/24/23 09:56 Resp 18 05/24/23 09:56 BP 149/62 H 05/24/23 09:56 Pulse Ox 99 05/24/23 07:05 O2 Del Method Nasal Cannula 05/24/23 07:05 O2 Flow Rate 4 05/24/23 07:05 FiO2 40 05/23/23 16:00 BMI result Body Mass Index 29.9 Const: Other: frail, chronically ill appearing; poor dentition; sleepy but arousable dry mucous membranes Orientation/consciousness: oriented to person and oriented to place Resp: Effort & Inspection: normal respiratory effort, no respiratory distress and no use of accessory muscles Cardio: Rate: regular rate GI: Other: abdomen softly distended, does not appear to be tender on palpatio Neuro: Other: able to move arms and legs on command; no focal deficits appreciated General: oriented to person and oriented to place Extrem: General: Yes no pedal edema Objective Data Active Medications Ceftriaxone Sodium 2 gm/ (Sodium Chloride) 50 mls @ 100 mls/hr IV Q24H [facility] Last Infusion: 05/23/23 13:28 Dose: Infused Documented By: TRENA Dextrose (D5w) 1,000 mls @ 100 mls/hr IVCONT .Q10H ABBY Lactulose (Lactulose 20 Gm/30 Ml Solution) 30 gm PO TID [facility] Last Admin: 05/24/23 09:59 Dose: Not Given Documented By: PUNEET Non-Admin Reason: NPO Lactulose (Lactulose 320 Gm/480 Ml Solution) 200 gm OK Q6H ABBY Midodrine (Midodrine Hcl 5 Mg Tablet) 5 mg PO TIDWM [facility] Last Admin: 05/24/23 09:59 Dose: Not Given Documented By: PUNEET Non-Admin Reason: NPO Ondansetron HCl (Ondansetron Hcl 4 Mg/2 Ml Vial) 4 mg IVPUSH Q8H PRN PRN Reason: Nausea and Vomiting Pantoprazole Sodium (Pantoprazole Sodium 40 Mg/10 Ml Vial) 40 mg IVPUSH BID@0630,1630 [facility] Last Admin: 05/24/23 06:24 Dose: 40 mg Documented By: RAJNI Rifaximin (Rifaximin 550 Mg Tablet) 550 mg PO BID [facility] Last Admin: 05/24/23 09:59 Dose: Not Given Documented By: PUNEET Non-Admin Reason: NPO Sodium Chloride (0.9 % Sodium Chloride Flush 3 Ml Syringe) 3 ml IVFLUSH QSHIFT [facility] Last Admin: 05/24/23 09:45 Dose: 3 ml Documented By: PUNEET Labs 05/24/23 05:57 05/24/23 05:57 Labs: Laboratory Results - last 24 hr 05/21/23 05/23/23 05/24/23 12:32 16:02 05:57 MCV 86.7 MCH 27.5 MCHC 31.7 RDW 18.9 H Plt Count 32 L MPV Not Reportable Immature Gran % (Auto) 0.7 H Neut % (Auto) 92.3 H Lymph % (Auto) 4.4 L [place] % (Auto) 2.6 Eos % (Auto) 0.0 Baso % (Auto) 0.0 Lymph # (Auto) 0.4 L [place] # (Auto) 0.2 Eos # (Auto) 0.0 Baso # (Auto) 0.0 Abs Immat Gran (auto) 0.06 H Absolute Neuts (auto) 7.5 Absolute Nucleated RBC 0.020 H Nucleated RBC % (auto) 0.2 Smear Tech's Comments VERIFIED VBG pH 7.31 L VBG pCO2 32 VBG pO2 195 VBG HCO3 16 L VBG O2 Saturation Not Reportable VBG Base Excess -8.4 Anion Gap 19 Estim Creat Clear Calc 11.7 Estimated GFR 10 Random Glucose 152 H Calcium 7.9 L Phosphorus 8.1 H Magnesium 1.8 Total Bilirubin 2.0 H AST 25 ALT 7 Alkaline Phosphatase 54 Total Protein 5.8 L Albumin 2.9 L Blood Type O Positive Antibody Screen NEGATIVE Crossmatch See Detail 05/24/23 06:02 MCV MCH MCHC RDW Plt Count MPV Immature Gran % (Auto) Neut % (Auto) Lymph % (Auto) [place] % (Auto) Eos % (Auto) Baso % (Auto) Lymph # (Auto) [place] # (Auto) Eos # (Auto) Baso # (Auto) Abs Immat Gran (auto) Absolute Neuts (auto) Absolute Nucleated RBC Nucleated RBC % (auto) Smear Tech's Comments VBG pH 7.40 VBG pCO2 49 VBG pO2 60 VBG HCO3 30 H VBG O2 Saturation 96.0 VBG Base Excess 5.6 Anion Gap Estim Creat Clear Calc Estimated GFR Random Glucose Calcium Phosphorus Magnesium Total Bilirubin AST ALT Alkaline Phosphatase Total Protein Albumin Blood Type Antibody Screen Crossmatch Microbiology Microbiology Results: Microbiology 05/19/23 05:34 Blood Culture - Final Blood - Venous No growth after 5 days. 05/19/23 05:35 Blood Culture - Final Blood - Venous No growth after 5 days. 05/18/23 09:35 Gram Stain - Final Ascites Fluid Routine Culture - Final No growth after 2 days Anaerobic Culture - Final NO GROWTH AFTER 5 DAYS Assessment and Plan (1) Hepatorenal syndrome: Status: Acute (2) Metabolic acidosis: Status: Acute (3) SBP (spontaneous bacterial peritonitis): Status: Acute Plan This is a 57-year-old lady with underlying alcoholic/hep C cirrhosis with continuated alcohol abuse requiring weekly paracentesis, COPD, hypotension admitted on 05/17/2023 with alteration of mental status, worsening ascites: Colitis. Hospital course further complicated by spontaneous bacterial peritonitis and hepatorenal syndrome with worsening metabolic acidosis. Patient was continued on lactulose and Xifaxan, started on ceftriaxone for spontaneous bacterial peritonitis. Patient was evaluated by Nephrology due to VLADIMIR and started on albumin supplementation and bicarbonate drip. Patient with waxing waning mental and metabolic status, due to worsening metabolic acidosis was transferred to the ICU s/p IV bicarb, bipap and downgraded back to the medical floor on 05/22 decompensated etoh/hcv cirrhosis with symptomatic ascites, severe VLADIMIR, acute blood loss anemia, acute metabolic encephalopathy due to hepatic encephalopathy and uremia, further complicated by sepsis from SBP and strep pneumonia bacteremia s/p 2 units total prbc. H/H dropped, will transfuse 1 unit today and follow H/H vladimir likely ATN/hepatorenal - no improvement in renal function thus far, no longer on octreotide or albumin, less benefit after 3 days, will discuss with nephro to determine need to resume continue ppi SBP - continue rocephin 2gm daily, will need 7 days for SBP, 14 days for bacteremia; repeat BCx from 05/18 negative to date monitor cbc, cmp s/p 1L paracentesis 05/18/23, positive for sbp; 05/22 theraoeutic tap with 2L removed lactulose for 2-3 bm/day, rifaximin gi and renal following monitor ciwa - no active withdrawal failed bedside swallow today, likely due to mental status, will start PPN; official speech eval pending - will change lactulose to rectal for now acute metabolic and respiratory acidosis improved s/p IV bicarb/bipap in ICU hypernatremia continues to worsen will restart d5w nephrology following recheck chemistry this afternoon copd stable opiate dependence suboxone stopped during ICU admission due to sedation mood disorder zoloft stopped during ICU admission due to sedation dvt prophylaxis - mechanical due to gi bleed, thrombocytopenia full code - grave prognosis. 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 family thus far resistant per report, reason for continued hospitalization: vladimir, bactremia, encephalopathy Quality Stroke Does the patient have a stroke diagnosis?: No VTE Prior VTE?: No VTE Risk Level:: Medical - moderate - high VTE Device Contraindication: N/A - Device Ordered VTE Drug Contraindication: Treatment Not Indicated
--- NOTE | 2023-05-24 10:46 | MHC.CLN ---
RE: CONSULT PT WITH POOR PO INTAKE X 7 DAYS TO START PPN PER PA DISCUSSED WITH PHARMACY RECOMMEND PT START PPN AT 40ML/HR TO PROVIDE 490KCALS (660KCALS TOTAL WITH D5W IVF), 96G DEXTROSE, 41G PROTEIN REPLETE LYTES NEEDED SEE ALSO FULL CLINICAL NUTRITION ASSESSMENT
[2023-05-24] MEDS: Dextrose 5 % 1,000 ML 100 ML IVCONT ×2 (12:07→22:24)
[2023-05-24] MEDS: Magnesium Sulfate/H2O 2 GM/50 ML PIGGYBACK IV ×2 (12:08→22:24)
[2023-05-24] MEDS: cefTRIAXone sodium 2 GM in 0.9 % Sodium Chloride 50 ML IV (12:15)
[2023-05-24] MEDS: Lactulose 320 GM/480 ML SOLUTION 200 GM PR (12:42)
--- NOTE | 2023-05-24 12:44 | PM.PNNEP ---
Subjective Subjective Date of Service: 05/24/23 Interval history: seen and examined this morning patient more awake and alert Physical Exam Vital Signs: Vital Signs: Last Vital Signs Temp 97.2 F 05/24/23 11:04 Pulse 83 05/24/23 11:04 Resp 18 05/24/23 11:04 BP 143/69 H 05/24/23 11:04 Pulse Ox 98 05/24/23 11:04 O2 Del Method Nasal Cannula 05/24/23 11:04 O2 Flow Rate 2 05/24/23 11:04 FiO2 40 05/23/23 16:00 BMI result Body Mass Index 29.9 Const: Other: frail, chronically ill appearing; poor dentition; sleepy but arousable dry mucous membranes Orientation/consciousness: oriented to person and oriented to place Resp: Effort & Inspection: normal respiratory effort, no respiratory distress and no use of accessory muscles Cardio: Rate: regular rate GI: Other: abdomen softly distended, does not appear to be tender on palpatio Neuro: Other: able to move arms and legs on command; no focal deficits appreciated General: oriented to person and oriented to place Extrem: General: Yes no pedal edema Objective Data Labs 05/24/23 05:57 05/24/23 05:57 Labs: Laboratory Results - last 24 hr 05/21/23 05/23/23 05/24/23 12:32 16:02 05:57 WBC 8.1 RBC 2.33 L D Hgb 6.4 L* D Hct 20.2 L* D MCV 86.7 MCH 27.5 MCHC 31.7 RDW 18.9 H Plt Count 32 L MPV Not Reportable Immature Gran % (Auto) 0.7 H Neut % (Auto) 92.3 H Lymph % (Auto) 4.4 L [place] % (Auto) 2.6 Eos % (Auto) 0.0 Baso % (Auto) 0.0 Lymph # (Auto) 0.4 L [place] # (Auto) 0.2 Eos # (Auto) 0.0 Baso # (Auto) 0.0 Abs Immat Gran (auto) 0.06 H Absolute Neuts (auto) 7.5 Absolute Nucleated RBC 0.020 H Nucleated RBC % (auto) 0.2 Smear Tech's Comments VERIFIED VBG pH 7.31 L VBG pCO2 32 VBG pO2 195 VBG HCO3 16 L VBG O2 Saturation Not Reportable VBG Base Excess -8.4 Sodium 155 H Potassium 3.3 Chloride 113 H Carbon Dioxide 26 Anion Gap 19 BUN 121 H Creatinine 4.43 H* Estim Creat Clear Calc 11.7 Estimated GFR 10 Random Glucose 152 H Calcium 7.9 L Phosphorus 8.1 H Magnesium 1.8 Total Bilirubin 2.0 H AST 25 ALT 7 Alkaline Phosphatase 54 Total Protein 5.8 L Albumin 2.9 L Blood Type O Positive Antibody Screen NEGATIVE Crossmatch See Detail 05/24/23 06:02 WBC RBC Hgb Hct MCV MCH MCHC RDW Plt Count MPV Immature Gran % (Auto) Neut % (Auto) Lymph % (Auto) [place] % (Auto) Eos % (Auto) Baso % (Auto) Lymph # (Auto) [place] # (Auto) Eos # (Auto) Baso # (Auto) Abs Immat Gran (auto) Absolute Neuts (auto) Absolute Nucleated RBC Nucleated RBC % (auto) Smear Tech's Comments VBG pH 7.40 VBG pCO2 49 VBG pO2 60 VBG HCO3 30 H VBG O2 Saturation 96.0 VBG Base Excess 5.6 Sodium Potassium Chloride Carbon Dioxide Anion Gap BUN Creatinine Estim Creat Clear Calc Estimated GFR Random Glucose Calcium Phosphorus Magnesium Total Bilirubin AST ALT Alkaline Phosphatase Total Protein Albumin Blood Type Antibody Screen Crossmatch Microbiology Microbiology Results: Microbiology 05/19/23 05:34 Blood - Venous Blood Culture - Final No growth after 5 days. 05/19/23 05:35 Blood - Venous Blood Culture - Final No growth after 5 days. 05/18/23 09:35 Ascites Fluid Gram Stain - Final 05/18/23 09:35 Ascites Fluid Routine Culture - Final No growth after 2 days 05/18/23 09:35 Ascites Fluid Anaerobic Culture - Final NO GROWTH AFTER 5 DAYS 05/17/23 13:54 Blood - Venous Blood Culture - Final Streptococcus pneumoniae 05/17/23 13:39 Blood - Venous Blood Culture - Final Streptococcus pneumoniae Procedures Date of Service Date of Service: 05/24/23 Assessment & Plan Assessment and plan (1) Acute on chronic renal failure: Status: Acute (2) Acute kidney injury: Status: Acute (3) Encephalopathy, hepatic: Status: Acute (4) Ascites: Status: Acute (5) Sepsis: Status: Acute (6) Cirrhosis of liver with ascites: Status: Inactive Plan VLADIMIR due to pre renal state in the setting of liver cirrhosis supsect acute tubular injury/ HRS type 1 significant ascites with ? 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 Progress Note: Quality Stroke Does the patient have a stroke diagnosis?: No
[2023-05-24] MEDS: Potassium Chloride/H20 10 MEQ/100 ML PIGGYBACK 100 MEQ IV ×2 (12:51→13:52)
[2023-05-24 13:25] LABS: Anion Gap 19 (12-20); Calcium 7.7 mg/dL (8.4-10.2); Carbon Dioxide 28 mmol/L (22-29); Chloride 113 mmol/L (96-108); Creatinine Clr Calc Pharmacy 12.5; Estimated Glomerular Filt Rate 11; Glucose Random 179 mg/dL (60-115); Potassium 3.6 mmol/L (3.3-5.1); Sodium 156 mmol/L (135-145)
[2023-05-24 13:44] LABS: Blood Urea Nitrogen 126 mg/dL (9-16)
--- NOTE | 2023-05-24 14:47 | MHC.SL.SWA ---
Speech Pathologist Impression: Risk of Aspiration Due to: Medically Fragile Dysphasia Diet Status: Liquid Consistency and Strategies for Safe Swallow: Liquid Intake Recommendation: [place] Thick Liquid Intake Strategies: Small Sips No Straws Solid Food Consistency: Dietary Recommendations: Grnd/Mech Altered (NDD2) Additional Modifications to Solid Foods: Patient requires 1-1 supervision/assistance at all meals due to generalized weakness and aspiration risk. Add sauces/gravies to purees and ground meats and blend well. Alternate liquids and solids, with liquids by controlled cup sip only. Patient evidencing esophageal dysphagia signs, should remain seated in upright position in bed after meals for at least 30 minutes. Oral Medication Intake: Crushed with Puree Please contact the pharmacy regarding appropriate crushable or liquid drug formulations that are available whenever modified delivery is recommended. Compensatory Strategies and Precautions to be Taken for Safe Swallow: Sitting Upright (90 deg) No Straw Liquids from Cup Small Bites and Sips Alternate Liquids/Solids Rate of Ingestion Change Supervision While Eating and Drinking for Safe Swallow: Total Assistance (1:1) Foods to Avoid: Dry, difficult to chew solids Swallowing Recommended Treatments: Compens. Strategy Educat. Recommendation for Speech: Inpatient Speech Therapy Comment: Patient presents with evidence of pharyngeal esophageal dysphagia as well as poor dentition and absent swallow trigger. On puree and ground solids presented today, patient with c/o globus sensation and throat soreness. On liquids, patient had audible swallow, burping and hiccups, with patient evidencing mild signs of aspiration when given cup sips of thin liquid. Recommend UPGRADE diet to Ground Mechanical (NDD2) with NECTAR THICK liquids, pills crushed in puree. Patient will require 1-1 assistance at meals due to generalized weakness and aspiration risk. JOANNA KELLER notified of recommendations by secure anne-marie, RN in person. [employer]ENT [employer] CONSULTANT will continue to follow. Frequency/Duration: Date Range for Service Req: Timeline to reassess: Materials Management Supervisor Clinican/Clinical Fellow: No Supervisory Statement: I have reviewed and agree with the student/clinical fellow's documentation: N/A Speech Language Pathologist: Jaz Nieves M.A., [facility]-[employer] CONSULTANT
--- NOTE | 2023-05-24 15:58 | MHC.CM.PN ---
Unable to reach pts sons/HCP's at listed contact numbers. Was able to locate numbers from [facility]. Addison Stahl can be reached at [phone]. Addison Stahl can be reached at [phone]. Task added to update contact list.
[2023-05-24] MEDS: Lactulose 20 GM/30 ML SOLUTION 30 GM PO ×2 (16:52→21:03)
[2023-05-24 18:31] LABS: Sodium 155 mmol/L (135-145)
[2023-05-24] MEDS: Albumin Human 25 % 100 ML IV (19:55)
[2023-05-24] MEDS: Furosemide 200 MG in 0.9 % Sodium Chloride 80 ML IVCONT (20:53)
[2023-05-24] MEDS: Parenteral Nutrition 960 ML 40 ML IV (20:58)
[2023-05-24] MEDS: Furosemide 40 MG/4 ML VIAL IVPUSH (21:02)
[2023-05-25 03:20] VITALS: BP 119/74; PULSE 80; RESP 18; TEMP 36.6; O2SAT 98
[2023-05-25] MEDS: Albumin Human 25 % 100 ML IV (03:27)
[2023-05-25] MEDS: Pantoprazole Sodium 40 MG/10 ML VIAL IVPUSH (04:58)
[2023-05-25 05:55] VITALS: BMI 30.9
[2023-05-25 07:09] VITALS: BP 139/71; PULSE 74; RESP 20; TEMP 36.1; O2SAT 97
[2023-05-25 07:12] LABS: Mean Corpuscular HGB Conc 33.8 g/dl (31.0-35.0); Mean Corpuscular Hemoglobin 29.5 pg (27.0-33.0); Mean Corpuscular Volume 87.3 fL (80.0-98.0); Mean Platelet Volume 11.6 fL (9.4-12.3); NRBC Pct Auto 0.4 /100WBC (0.0-0.2); Red Blood Count 1.73 X10*6/uL (4.20-5.50); Red Cell Distribution Width 17.9 % (11.0-16.0); White Blood Count 9.9 X10*3/uL (4.8-10.8)
[2023-05-25 07:21] LABS: Platelet Count 41 X10*3/uL (160-400)
[2023-05-25 07:24] LABS: Hemoglobin 5.1 g/dl (12.0-16.0)
[2023-05-25 07:25] LABS: Hematocrit 15.1 % (37.0-47.0)
[2023-05-25 07:46] LABS: Albumin Level 3.3 g/dL (3.5-5.0); Anion Gap 18 (12-20); Calcium 8.3 mg/dL (8.4-10.2); Carbon Dioxide 28 mmol/L (22-29); Chloride 112 mmol/L (96-108); Creatinine Clr Calc Pharmacy 12.2; Estimated Glomerular Filt Rate 11; Glucose Random 120 mg/dL (60-115); Magnesium 2.6 mg/dL (1.6-2.6); Phosphorus 7.5 mg/dL (2.7-4.5); Potassium 3.4 mmol/L (3.3-5.1); Sodium 155 mmol/L (135-145)
[2023-05-25 07:53] LABS: Immature Retic Fraction 22.4 % (3.0-15.9); Retic HGB Equivalent 27.1 pg (30.0-35.0); Reticulocytes Absolute 0.034 X10*6/uL (0.026-0.095)
[2023-05-25 07:58] LABS: Band Neutrophils Percent 1 % (3-5); Eosinophils Absolute Manual 0.1 X10*3/uL (0.0-0.4); Eosinophils Percent Manual 1 % (0-4); Lymphocytes Absolute Manual 0.3 X10*3/uL (1.2-4.9); Lymphocytes Percent Manual 3 % (20-40); Monocytes Absolute Manual 0.3 X10*3/uL (0.1-1.2); Monocytes Percent Manual 3 % (2-11); Neutrophils Absolute Manual 9.2 X10*3/uL (2.0-8.3); Neutrophils Percent Manual 92 % (45-73); Nucleated Red Blood Cells 1 /100WBC (0-0)
[2023-05-25 08:02] LABS: Acanthocytes 2+ (3-5) /OIF; Burr Cells 2+ (3-5) /OIF; Hypochromasia 2+ (15-30) /OIF; Ovalocytes 1+ (5-14) /OIF; RBC Morphology NOTED; Schistocytes 2+ (3-5) /OIF; Target Cells 1+ (5-14) /OIF
[2023-05-25] MEDS: rifAXIMin 550 MG TABLET PO (08:02)
[2023-05-25] MEDS: Lactulose 20 GM/30 ML SOLUTION 30 GM PO (08:02)
[2023-05-25 08:03] LABS: Basophilic Stippling 1+ (0-2) /OIF
[2023-05-25] MEDS: 0.9 % Sodium Chloride Flush 3 ML SYRINGE IVFLUSH ×3 (08:03→19:27)
[2023-05-25 08:05] LABS: Platelet Estimate DECREASED (NORMAL); Platelet Morphology Comment NORMAL
[2023-05-25 08:12] LABS: Alanine Aminotransferase 6 U/L (0-31); Alkaline Phosphatase 40 U/L (39-117); Aspartate Amino Transferase 21 U/L (5-31); Bilirubin Direct 1.2 mg/dL (0.0-0.5); Bilirubin Total 1.6 mg/dL (0.0-1.0); Blood Urea Nitrogen 127 mg/dL (9-16); Lactate Dehydrogenase 184 U/L (122-220); Total Protein 5.6 g/dL (6.5-8.0)
--- NOTE | 2023-05-25 08:27 | PM.EVENT ---
Event Note Date of Service: 06/08/23 Event Note: Called by nurse that patient has refused labs and is requesting to go home and Dr. Joseph and I went to the bedside for conversation with patient regarding goals of care. She was awake, alert and able to state that she was at [facility] and why. She requested to go home. Comfort care was discussed and she is agreeable that she would like to be made comfortable. Home with hospice was discussed. She was able to verbalize that if she goes home with hospice she will no longer get treatment and she will likely of current medical conditions. She understands and wants to return home on hospice so she can be with her sons. This was discussed both in Bangl[place]hi as well as Slovak and she was able to repeat back everything that was discussed. 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 spoke with both son's who are agreeable. CM updated and hospice will be arranged. Time Spent With Patient Time: Total time managing care of this patient today ____ minutes.
--- NOTE | 2023-05-25 09:40 | MHC.CM.PN ---
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 [facility]erral [facility] to [facility]. Pts son Issac called and notified, states he and his brother are able to care for her at home.
--- NOTE | 2023-05-25 10:45 | MHC.CLN ---
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
--- NOTE | 2023-05-25 11:41 | MHC.SL.SWA ---
Speech Pathologist Impression: Risk of aspiration, oropharyngeal dysphagia Risk of Aspiration Due to: Medically Fragile Dysphasia Diet Status: No changes Liquid Consistency and Strategies for Safe Swallow: Liquid Intake Recommendation: [place] Thick Liquid Intake Strategies: Small Sips No Straws Solid Food Consistency: Dietary Recommendations: Grnd/Mech Altered (NDD2) Additional Modifications to Solid Foods: Patient requires 1-1 supervision/assistance at all meals due to generalized weakness and aspiration risk. Add sauces/gravies to purees and ground meats and blend well. Alternate liquids and solids, with liquids by controlled cup sip only. Patient evidencing esophageal dysphagia signs, should remain seated in upright position in bed after meals for at least 30 minutes. Oral Medication Intake: Crushed with Puree Please contact the pharmacy regarding appropriate crushable or liquid drug formulations that are available whenever modified delivery is recommended. Compensatory Strategies and Precautions to be Taken for Safe Swallow: Sitting Upright (90 deg) Double Swallow No Straw Small Bites and Sips Alternate Liquids/Solids Rate of Ingestion Change Oral Check Avoid Specific Foods Supervision While Eating and Drinking for Safe Swallow: Total Assistance (1:1) Foods to Avoid: Dry, difficult to chew solids Swallowing Recommended Treatments: Compens. Strategy Educat. Recommendation for Speech: D/C Comment: Per PA, pt to be discharged home on hospice. Recommend continue with recommended diet, 1:1 feeding, and aspiration precautions. Bark Spudder Clinican/Clinical Fellow: No Supervisory Statement: I have reviewed and agree with the student/clinical fellow's documentation: N/A Speech Language Pathologist: Patrica Taylor M.A., CCC-RESEARCH ASSOCIATE MOLECULAR BIOLOGY
--- NOTE | 2023-05-25 15:02 | P.PNIM_ITS ---
Subjective Subjective Date of Service: 05/25/23 Interval History: Called by nurse that patient has refused labs and is requesting to go home and Dr. Joseph and I went to the bedside for conversation with patient regarding goals of care. She was awake, alert and able to state that she was at [facility] and why. She requested to go home. Comfort care was discussed and she is agreeable that she would like to be made comfortable. Home with hospice was discussed. She was able to verbalize that if she goes home with hospice she will no longer get treatment and she will likely of current medical conditions. She understands and wants to return home on hospice so she can be with her sons. This was discussed both in Uzbek as well as Maori and she was able to repeat back everything that was discussed. 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 spoke with both son's who understand and are agreeable. CM updated and hospice will be arranged. Review of Systems Review of Systems: Yes all other systems are reviewed and are negative Cardiovascular Cardiovascular: Denies chest pain and Denies dyspnea Respiratory Respiratory: Denies dyspnea Gastrointestinal Gastrointestinal: Denies abdominal pain Physical Exam 2 Vital Signs: Vital Signs: Last Vital Signs Temp 97 F 05/25/23 07:09 Pulse 74 05/25/23 07:09 Resp 20 05/25/23 07:09 BP 139/71 05/25/23 07:09 Pulse Ox 97 05/25/23 07:09 O2 Del Method Nasal Cannula 05/25/23 07:09 O2 Flow Rate 2 05/25/23 07:09 FiO2 40 05/23/23 16:00 BMI result Body Mass Index 30.9 Const: Other: frail, chronically ill appearing; poor dentition; awake, alert dry mucous membranes Orientation/consciousness: oriented to person and oriented to place Resp: Effort & Inspection: normal respiratory effort, no respiratory distress and no use of accessory muscles Cardio: Rate: regular rate GI: Other: abdomen softly distended, does not appear to be tender on palpation Neuro: Other: able to move arms and legs on command; no focal deficits appreciated General: oriented to person and oriented to place Extrem: General: Yes no pedal edema Objective Data Active Medications Lactulose (Lactulose 320 Gm/480 Ml Solution) 200 gm PA Q6H ABBY Last Admin: 05/24/23 12:42 Dose: 200 gm Documented By: PUNEET Lorazepam (Lorazepam 2 Mg/Ml Vial) 0.5 mg IVPUSH Q4H PRN PRN Reason: anxiety/restlessness Morphine Sulfate (Morphine Sulfate 2 Mg/Ml Cartridge) 2 mg IVPUSH Q2H PRN PRN Reason: Pain, Severe (7-10)/ RR>/=24 Ondansetron HCl (Ondansetron Hcl 4 Mg/2 Ml Vial) 4 mg IVPUSH Q8H PRN PRN Reason: Nausea and Vomiting Sodium Chloride (0.9 % Sodium Chloride Flush 3 Ml Syringe) 3 ml IVFLUSH QSHIFT [facility] Last Admin: 05/25/23 08:03 Dose: 3 ml Documented By: CTORRZ Labs 05/25/23 06:51 05/25/23 06:51 Labs: Laboratory Results - last 24 hr 05/25/23 05/25/23 06:51 07:43 MCV 87.3 MCH 29.5 MCHC 33.8 RDW 17.9 H Plt Count 41 L D MPV 11.6 Absolute Nucleated RBC 0.040 H Nucleated RBC % (auto) 0.4 H Neutrophils % (Manual) 92 H Band Neutrophils % 1 L Lymphocytes % (Manual) 3 L Monocytes % (Manual) 3 Eosinophils % (Manual) 1 Abs Neuts (Manual) 9.2 H Lymphocytes # (Manual) 0.3 L Monocytes # (Manual) 0.3 Eosinophils # (Manual) 0.1 Nucleated RBCs 1 H Platelet Estimate DECREASED Plt Morphology Comment NORMAL RBC Morphology NOTED Hypochromasia 2+ (15-30) Basophilic Stippling 1+ (0-2) Target Cells 1+ (5-14) Ovalocytes 1+ (5-14) Dora Cells 2+ (3-5) Acanthocytes (Spur) 2+ (3-5) Schistocytes 2+ (3-5) Absolute Retic 0.034 Percent Retic 2.0 H Immature Retic Fraction 22.4 H Retic Hgb Equivalent 27.1 L PT Cancelled INR Cancelled Anion Gap 18 Estim Creat Clear Calc 12.2 Estimated GFR 11 Random Glucose 120 H Calcium 8.3 L D Phosphorus 7.5 H Magnesium 2.6 Total Bilirubin 1.6 H Direct Bilirubin 1.2 H AST 21 ALT 6 Alkaline Phosphatase 40 Lactate Dehydrogenase 184 Total Protein 5.6 L Albumin 3.3 L Assessment and Plan (1) Hepatorenal syndrome: Status: Acute (2) Metabolic acidosis: Status: Acute (3) SBP (spontaneous bacterial peritonitis): Status: Acute (4) Encephalopathy, hepatic: Status: Acute (5) Hypoxic respiratory failure: Status: Acute Plan This is a 57-year-old female with underlying alcoholic/hep C cirrhosis, continued alcohol abuse requiring weekly paracentesis, COPD, hypotension admitted on 05/17/2023 with alteration of mental status, worsening ascites: Colitis. Hospital course further complicated by spontaneous bacterial peritonitis and hepatorenal syndrome with worsening metabolic acidosis. Patient was continued on lactulose and Xifaxan, started on ceftriaxone for spontaneous bacterial peritonitis. Patient was evaluated by Nephrology due to VLADIMIR and started on albumin supplementation and bicarbonate drip. Patient with waxing waning mental and metabolic status, due to worsening metabolic acidosis was transferred to the ICU s/p IV bicarb, bipap and downgraded back to the medical floor on 05/22 decompensated etoh/hcv cirrhosis with symptomatic ascites, severe VLADIMIR, acute blood loss anemia, acute metabolic encephalopathy due to hepatic encephalopathy and uremia, further complicated by sepsis from SBP and strep pneumonia bacteremia, dysphagia, severe hypernatremia. patient has been aggressively treated over the past week but despite maximal medical therapy patient's anemia and overall condition continues to worsen, renal function has not improved, sodium remains significantly elevated. 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 Discussed extensively with patient and family. Patient's wishes are to return home on hospice so she can live out her remaining days with her sons. Both sons are agreeable for her to return home with hospice. Plan to return home after hospice bed is delivered, likely tomorrow. all medications have been discontinued and she will be started on comfort medications as needed including morphine and ativan. reason for continued hospitalization:safe disposition - plan for discharge home on hospice, likely tomorrow Quality Stroke Does the patient have a stroke diagnosis?: No VTE Prior VTE?: No VTE Risk Level:: Medical - moderate - high VTE Device Contraindication: N/A - Device Ordered VTE Drug Contraindication: Treatment Not Indicated
[2023-05-25 15:04] VITALS: RESP 14; O2SAT 97
--- NOTE | 2023-05-25 15:40 | MHC.CM.PN ---
DCP: Pt will D/C tomorrow,
--- NOTE | 2023-05-25 15:41 | MHC.CM.PN ---
DCP: D/C home on hospice tomorrow. [facility] ordered DME/oxygen, and is being delivered tonight. Transport pre-booked tomorrow at 11am via BLS/[facility]. This CM met with pt to discuss and called pts son/HCP Weston to confirm plan. Weston will be in tomorrow to picker / packer scripts for comfort meds prior to her discharge.
[2023-05-25 16:41] LABS: Triglycerides 34 mg/dL (<150)
--- NOTE | 2023-05-25 16:53 | P.DS_ITS ---
DS: Providers Provider Date of admission: 05/17/23 16:25 Primary care physician: Amina Malone DO Consults: 05/17/23 13:56 Consult to Gastroenterology Stat Consulting Provider: Cindy Nj Reason for consultation: cirrhosis, anemia Has provider been notified: Yes 05/17/23 14:50 Consult to Nephrology Stat Consulting Provider: Sandeep Mora Reason for consultation: renal failure Has provider been notified: Yes 05/17/23 21:52 Addiction Medicine Routine Consulting Provider: Addiction Covering Reason for consultation: ETOH Has provider been notified: Yes 05/20/23 08:29 Consult to Critical Care Routine Consulting Provider: Peter Santos Reason for consultation: sbp, hepatorenal, acidosis 05/25/23 07:32 Consult to Hematology / Oncology Routine Consulting Provider: Jessica Ortiz Reason for consultation: worsening anemia Has provider been notified: No DS: Diagnosis Discharge Diagnosis (1) Hepatorenal syndrome: Status: Acute (2) Metabolic acidosis: Status: Acute (3) SBP (spontaneous bacterial peritonitis): Status: Acute (4) Encephalopathy, hepatic: Status: Acute (5) Hypoxic respiratory failure: Status: Acute DS: Summary Hospital Course Hospital Course: From H&P on the day of admission Pt is a 57-year-old female with a PMH significant for?alcoholic/hep C cirrhosis still drinking daily with weekly paracentesis, COPD, HTN, and alcohol use disorder who presents to the ED from short-term stay after showing up to hospital for weekly paracentesis and nursing noting significant swelling and ecchymosis of lower extremities. Patient herself is pleasantly confused, complains of pain in her legs, but denies any known trauma to the area or fall. Patient has long history of alcoholic/hep C cirrhosis who was noncompliant with home medications, regular paracentesis appointments, and follow-up office appointments with GI. Continues to drink daily and has chronically elevated ammonia. Today patient complains of all-over body pain most significant in lower abdomen and lower extremities bilaterally. Reports drinking 3-424 oz beers daily, with last drink this morning at 06:00. Denies history of alcohol withdrawal, but states she does drink some every morning when she wakes up. Also mentions occasionally seeing things that are not there, such as her son. Patient states her son has been helping her out at home, though she later contradicts that by saying she no longer speaks to her sons. Denies any known active bleeding, no hematochezia, melena, hemoptysis, hematemesis. Overall patient is a poor historian, but denies any other acute medical complaints, no chest pain/pressure, palpitations. Denies shortness of breath. ? In the ED pt was afebrile but tachycardic up to 119, vitals otherwise WNL. Labs were significant for leukocytosis of 16.7, H&H 7.6/23.0, platelets 59, % bands 44, BUN 92, creatinine 4.45, lactic acid 2.2, bilirubin 1.3, ammonia 93, and albumin 2.1. Stool positive for occult blood. CXR showed no acute cardiopulmonary process, did find mild deformity of right posterior 7th rib likely healing fracture. X-ray of hips negative for fracture or dislocation. CT of head found no acute intracranial pathology but mild microvascular ischemic changes. CT of cervical spine found no gross fracture or malalignment. Did find moderate age-indeterminate compression deformity of T2 and T3 vertebral body. CT of abdomen and pelvis found cirrhotic liver with portal hypertension, hepatomegaly, and large abdominal pelvic ascites. Also found diffuse wall thickening of the colon and rectum that is out of proportion to surrounding fluid, consider infectious and inflammatory etiologies. EKG demonstrated sinus tachycardia of [address] elevations or depressions. Pt was treated with IVF, pantoprazole, ceftriaxone, lactulose, octreotide, albumin, and vitamin K. Pt will be admitted to the hospital for treatment and further evaluation of acute decompensated alcoholic cirrhosis, acute blood loss anemia, and VLADIMIR. This is a 57-year-old lady with underlying alcoholic/hep C cirrhosis with continued alcohol abuse requiring weekly paracentesis, COPD, hypotension admitted on 05/17/2023 with alteration of mental status, worsening ascites: Colitis. Hospital course further complicated by spontaneous bacterial peritonitis and hepatorenal syndrome with worsening metabolic acidosis. Patient was continued on lactulose and Xifaxan, started on ceftriaxone for spontaneous bacterial peritonitis. She was treated with lactulose Patient was evaluated by Nephrology due to VLADIMIR and started on albumin supplementation and bicarbonate drip. Patient with waxing waning mental and metabolic status, due to worsening metabolic acidosis was transferred to the ICU s/p IV bicarb, bipap and rectal lactulose, downgraded back to the medical floor on 05/22. Due to dysphagia she was seen by speech who recommended mechanical ground diet and nectar thick liquids. Renal function and sodium levels did not improve with maximal medical therapy. Her anemia continued to worsen. 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 On 05/23 goals of care discussion with sons/HCP and she was changed to DNR/DNI status. Her mental status did improve somewhat and on 05/23 the patient refused labs and said she wanted to go home and diet She was awake, alert and able to state that she was at [facility] and why. She requested to go home and was able to make her wishes known. Comfort care was discussed and she is agreeable that she would like to be made comfortable and didn't want any more lab work etc. Home with hospice was discussed. She was able to verbalize that if she goes home with hospice she will no longer get treatment and she will likely of current medical conditions. She understands and wants to return home on hospice so she can be with her sons. This was discussed both in Rwandan as well as Niuean and she was able to repeat back everything that was discussed. 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 Both of son's who are agreeable. CM updated and hospice was arranged. Her medications were discontinued and she was started on comfort medications. She will be going home on hospice. decompensated etoh/hcv cirrhosis with symptomatic ascites severe VLADIMIR/hepatorenal syndrome acute blood loss anemia acute metabolic encephalopathy due to hepatic encephalopathy and uremia sepsis from SBP and strep pneumonia bacteremia Acute respiratory failure with hypoxia severe hypernatremia dysphagia chronic medical issues: copd, HCV, opiate use disorder, etoh use disorder, mood disorder Physical Exam Vital Signs: Vital Signs: Last Vital Signs Temp 97 F 05/25/23 07:09 Pulse 74 05/25/23 07:09 Resp 14 05/25/23 15:04 BP 139/71 05/25/23 07:09 Pulse Ox 97 05/25/23 15:04 O2 Del Method Nasal Cannula 05/25/23 15:04 O2 Flow Rate 2 05/25/23 15:04 FiO2 40 05/23/23 16:00 BMI result Body Mass Index 30.9 DS: Data Data Completed and Pending Completed studies during hospitalization [Text1]: Procedures Detoxification Services for Substance Abuse Treatment (07/20/20) Drainage of Peritoneal Cavity, Percutaneous Approach (09/28/22) Reposition Left Radius, External Approach (09/28/22) Reposition Left Ulna, External Approach (09/28/22) Transfusion of Nonautologous Platelets into Peripheral Vein, Percutaneous Approach (07/20/20) Transfusion of Nonautologous Red Blood Cells into Peripheral Vein, Percutaneous Approach (09/28/22) Labs on day of discharge: Laboratory Results - last 24 hr 05/24/23 05/25/23 05/25/23 18:15 06:51 07:43 WBC 9.9 RBC 1.73 L D Hgb 5.1 L* D Hct 15.1 L* D MCV 87.3 MCH 29.5 MCHC 33.8 RDW 17.9 H Plt Count 41 L D MPV 11.6 Absolute Nucleated RBC 0.040 H Nucleated RBC % (auto) 0.4 H Neutrophils % (Manual) 92 H Band Neutrophils % 1 L Lymphocytes % (Manual) 3 L Monocytes % (Manual) 3 Eosinophils % (Manual) 1 Abs Neuts (Manual) 9.2 H Lymphocytes # (Manual) 0.3 L Monocytes # (Manual) 0.3 Eosinophils # (Manual) 0.1 Nucleated RBCs 1 H Platelet Estimate DECREASED Plt Morphology Comment NORMAL RBC Morphology NOTED Hypochromasia 2+ (15-30) Basophilic Stippling 1+ (0-2) Target Cells 1+ (5-14) Ovalocytes 1+ (5-14) Dora Cells 2+ (3-5) Acanthocytes (Spur) 2+ (3-5) Schistocytes 2+ (3-5) Absolute Retic 0.034 Percent Retic 2.0 H Immature Retic Fraction 22.4 H Retic Hgb Equivalent 27.1 L PT Cancelled INR Cancelled Sodium 155 H 155 H Potassium 3.4 Chloride 112 H Carbon Dioxide 28 Anion Gap 18 BUN 127 H Creatinine 4.35 H* Estim Creat Clear Calc 12.2 Estimated GFR 11 Random Glucose 120 H Calcium 8.3 L D Phosphorus 7.5 H Magnesium 2.6 Total Bilirubin 1.6 H Direct Bilirubin 1.2 H AST 21 ALT 6 Alkaline Phosphatase 40 Lactate Dehydrogenase 184 Total Protein 5.6 L Albumin 3.3 L Triglycerides 34 Discharge Plan Discharge Patient Disposition: Hospice - Home Discharge Diagnosis: hepatorenal syndrome VLADIMIR etoh liver failure with ascites/thrombocytopenia acute on chronic anemia multifactorial encephalopathy acute hypoxic respiratory failure Referrals: [facility] [Other] - 1 Week Amina Malone DO [Primary Care Provider] - 1 Week Discharge Medications: New lorazepam [Ativan] 0.5 mg tablet 0.5 mg PO Q6H PRN (Reason: anxiety/restlessness) Qty: 16 0RF Rx Instructions: hospice morphine concentrate 100 mg/5 mL (20 mg/mL) solution 5 mg PO Q3H PRN (Reason: pain/sob) Qty: 30 0RF Rx Instructions: Partial Fill upon patient request. hospice ondansetron 4 mg tablet,disintegrating 4 mg PO Q8H PRN (Reason: nausea and vomiting) Qty: 14 0RF Rx Instructions: hospice Discontinued Xifaxan 550 mg tablet 550 mg PO BID 30 Days Qty: 60 3RF Rx Instructions: Take one tablet by mouth twice a day multivitamin Tablet 1 tab PO DAILY trazodone 50 mg Tablet 100 mg PO BEDTIME sertraline 50 mg Tablet 150 mg PO DAILY@1200 buprenorphine-naloxone [Suboxone] 8-2 mg Film 1 film BUCCAL DAILY thiamine HCl (vitamin B1) 100 mg tablet 1 tab PO QAM oxybutynin chloride 5 mg tablet extended release 24hr 1 tab PO QAM folic acid 1 mg tablet 1 tab PO QAM baclofen 10 mg tablet 10 mg PO BEDTIME PRN (Reason: muscle spasm) Combivent Respimat 20-100 mcg/actuation mist 1 puff inhalation QID PRN (Reason: Wheezing) furosemide 40 mg tablet 40 mg PO BID@0900,1200 spironolactone 25 mg tablet 100 mg PO DAILY omeprazole 20 mg capsule,delayed release(DR/EC) 20 mg PO BIDAC docusate sodium 100 mg capsule 100 mg PO QAM albuterol sulfate [Ventolin HFA] 90 mcg/actuation HFA aerosol inhaler 2 puff INHALATION Q4-6H PRN (Reason: Wheezing) calcium carbonate-vitamin D3 [Oyster Shell Calcium-Vit D3] 500 mg-10 mcg (400 unit) tablet 2 tab PO QPM Asmanex HFA 200 mcg/actuation HFA aerosol inhaler 1 puff INHALATION BID lactulose 20 gram/30 mL solution 20 g PO BID PRN (Reason: Constipation) fluticasone propionate [Flonase] 50 mcg/actuation [place],Suspension 1 spray INTRANASAL DAILY PRN (Reason: Congestion) Rx Instructions: administer into each nostril cholecalciferol (vitamin D3) 50 mcg (2,000 unit) capsule 50 mcg PO DAILY 90 Days Qty: 90 1RF Activity on Discharge: As tolerated Stand Alone Forms: Patient Portal Discharge page Care Plan Goals: comfort Health Concerns: hepatorenal syndrome VLADIMIR decompensated etoh/HCV liver failure with ascites/thrombocytopenia acute on chronic anemia multifactorial encephalopathy acute hypoxic respiratory failure strep pneumonia bacteremia SBP Plan of Treatment: Home with hospice Assessment: see discharge summary
[2023-05-25 19:59] VITALS: PULSE 80; RESP 18; TEMP 36.3; O2SAT 100
[2023-05-25 22:27] VITALS: BP 112/64; PULSE 75; RESP 28; TEMP 36.2; O2SAT 98
[2023-05-25 22:35] VITALS: RESP 26
[2023-05-25] MEDS: Morphine Sulfate 2 MG/ML CARTRIDGE IVPUSH (22:35)
[2023-05-26] VITALS: BP 100/62; PULSE 70; RESP 18; TEMP 36.1; O2SAT 100
[2023-05-26] MEDS: LORazepam 2 MG/ML VIAL 0.5 MG IVPUSH ×2 (03:40→10:54)
[2023-05-26 04:00] VITALS: BP 122/67; PULSE 69; RESP 20; TEMP 35.9; O2SAT 100
[2023-05-26 05:10] VITALS: RESP 18
[2023-05-26 05:49] VITALS: BMI 30.4
--- NOTE | 2023-05-26 09:43 | P.DS_ITS ---
DS: Providers Provider Date of Service: 05/26/23 Date of admission: 05/17/23 16:25 Primary care physician: Amina Malone DO Consults: 05/17/23 13:56 Consult to Gastroenterology Stat Consulting Provider: Cindy Nj Reason for consultation: cirrhosis, anemia Has provider been notified: Yes 05/17/23 14:50 Consult to Nephrology Stat Consulting Provider: Sandeep Mora Reason for consultation: renal failure Has provider been notified: Yes 05/17/23 21:52 Addiction Medicine Routine Consulting Provider: Addiction Covering Reason for consultation: ETOH Has provider been notified: Yes 05/20/23 08:29 Consult to Critical Care Routine Consulting Provider: Peter Santos Reason for consultation: sbp, hepatorenal, acidosis 05/25/23 07:32 Consult to Hematology / Oncology Routine Consulting Provider: Jessica Ortiz Reason for consultation: worsening anemia Has provider been notified: No DS: Diagnosis Discharge Diagnosis (1) Hepatorenal syndrome: Status: Acute (2) Metabolic acidosis: Status: Acute (3) SBP (spontaneous bacterial peritonitis): Status: Acute (4) Encephalopathy, hepatic: Status: Acute (5) Hypoxic respiratory failure: Status: Acute DS: Summary Hospital Course Hospital Course: From H&P on the day of admission Pt is a 57-year-old female with a PMH significant for?alcoholic/hep C cirrhosis still drinking daily with weekly paracentesis, COPD, HTN, and alcohol use disorder who presents to the ED from short-term stay after showing up to hospital for weekly paracentesis and nursing noting significant swelling and ecchymosis of lower extremities. Patient herself is pleasantly confused, complains of pain in her legs, but denies any known trauma to the area or fall. Patient has long history of alcoholic/hep C cirrhosis who was noncompliant with home medications, regular paracentesis appointments, and follow-up office appointments with GI. Continues to drink daily and has chronically elevated ammonia. Today patient complains of all-over body pain most significant in lower abdomen and lower extremities bilaterally. Reports drinking 3-424 oz beers daily, with last drink this morning at 06:00. Denies history of alcohol withdrawal, but states she does drink some every morning when she wakes up. Also mentions occasionally seeing things that are not there, such as her son. Patient states her son has been helping her out at home, though she later contradicts that by saying she no longer speaks to her sons. Denies any known active bleeding, no hematochezia, melena, hemoptysis, hematemesis. Overall patient is a poor historian, but denies any other acute medical complaints, no chest pain/pressure, palpitations. Denies shortness of breath. ? In the ED pt was afebrile but tachycardic up to 119, vitals otherwise WNL. Labs were significant for leukocytosis of 16.7, H&H 7.6/23.0, platelets 59, % bands 44, BUN 92, creatinine 4.45, lactic acid 2.2, bilirubin 1.3, ammonia 93, and albumin 2.1. Stool positive for occult blood. CXR showed no acute cardi opulmonary process, did find mild deformity of right posterior 7th rib likely healing fracture. X-ray of hips negative for fracture or dislocation. CT of head found no acute intracranial pathology but mild microvascular ischemic changes. CT of cervical spine found no gross fracture or malalignment. Did find moderate age-indeterminate compression deformity of T2 and T3 vertebral body. CT of abdomen and pelvis found cirrhotic liver with portal hypertension, hepatomegaly, and large abdominal pelvic ascites. Also found diffuse wall thickening of the colon and rectum that is out of proportion to surrounding fluid, consider infectious and inflammatory etiologies. EKG demonstrated sinus tachycardia of [address] elevations or depressions. Pt was treated with IVF, pantoprazole, ceftriaxone, lactulose, octreotide, albumin, and vitamin K. Pt will be admitted to the hospital for treatment and further evaluation of acute decompensated alcoholic cirrhosis, acute blood loss anemia, and VLADIMIR. This is a 57-year-old lady with underlying alcoholic/hep C cirrhosis with continued alcohol abuse requiring weekly paracentesis, COPD, hypotension admitted on 05/17/2023 with alteration of mental status, worsening ascites: Colitis. Hospital course further complicated by spontaneous bacterial peritonitis and hepatorenal syndrome with worsening metabolic acidosis. Patient was continued on lactulose and Xifaxan, started on ceftriaxone for spontaneous bacterial peritonitis. She was treated with lactulose Patient was evaluated by Nephrology due to VLADIMIR and started on albumin supplementation and bicarbonate drip. Patient with waxing waning mental and metabolic status, due to worsening metabolic acidosis was transferred to the ICU s/p IV bicarb, bipap and rectal lactulose, downgraded back to the medical floor on 05/22. Due to dysphagia she was seen by speech who recommended mechanical ground diet and nectar thick liquids. Renal function and sodium levels did not improve with maximal medical therapy. Her anemia continued to worsen. 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 On 05/23 goals of care discussion with sons/HCP and she was changed to DNR/DNI status. Her mental status did improve somewhat and on 05/24 the patient refused labs and said she wanted to go home and diet She was awake, alert and able to state that she was at [facility] and why. She requested to go home and was able to make her wishes known. Comfort care was discussed and she is agreeable that she would like to be made comfortable and didn't want any more lab work etc. Home with hospice was discussed. She was able to verbalize that if she goes home with hospice she will no longer get treatment and she will likely of current medical conditions. She understands and wants to return home on hospice so she can be with her sons. This was discussed both in [place] as well as Romanian and she was able to repeat back everything that was discussed. 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 Both of son's who are agreeable. CM updated and hospice was arranged. Her medications were discontinued and she was started on comfort medications. She will be going home on hospice. decompensated etoh/hcv cirrhosis with symptomatic ascites severe VLADIMIR/hepatorenal syndrome acute blood loss anemia acute metabolic encephalopathy due to hepatic encephalopathy and uremia sepsis from SBP and strep pneumonia bacteremia Acute respiratory failure with hypoxia severe hypernatremia dysphagia chronic medical issues: copd, HCV, opiate use disorder, etoh use disorder, mood disorder Time Attestation Discharge Coordination Time (in mins): 36 Quality: Safe Use of Opioids Does Pt have an Active Cancer Diagnosis on the Problem List?: No Quality: Stroke Does the patient have a stroke diagnosis?: No Physical Exam Vital Signs: Vital Signs: Last Vital Signs Temp 96.6 F L 05/26/23 04:00 Pulse 69 05/26/23 04:00 Resp 18 05/26/23 05:10 BP 122/67 05/26/23 04:00 Pulse Ox 100 05/26/23 04:00 O2 Del Method Nasal Cannula 05/26/23 04:00 O2 Flow Rate 2 05/26/23 04:00 FiO2 40 05/23/23 16:00 BMI result Body Mass Index 30.4 Const: Other: General chronically ill-appearing, poor dentition, awake alert, dry mucosa Neck no JVD. CVS regular rate rhythm, Respiratory lungs normal respiratory effort, clear to auscultation, no respiratory distress, no wheeze, no rhonchi. Gastrointestinal abdomen distended, nontender, no guarding, no rigidity Extremities no edema. Neuro moving all 4 extremity speech clear, awake alert to person /place. DS: Data Data Completed and Pending Completed studies during hospitalization [Text1]: Procedures Detoxification Services for Substance Abuse Treatment (07/20/20) Drainage of Peritoneal Cavity, Percutaneous Approach (09/28/22) Reposition Left Radius, External Approach (09/28/22) Reposition Left Ulna, External Approach (09/28/22) Transfusion of Nonautologous Platelets into Peripheral Vein, Percutaneous Approach (07/20/20) Transfusion of Nonautologous Red Blood Cells into Peripheral Vein, Percutaneous Approach (09/28/22) Labs on day of discharge: Laboratory Results - last 24 hr 05/25/23 06:51 Triglycerides 34 Discharge Plan Discharge Anticipated Discharge Date/Time: 05/26/23 09:42 Patient Disposition: Hospice - Home Discharge Diagnosis: hepatorenal syndrome VLADIMIR etoh liver failure with ascites/thrombocytopenia acute on chronic anemia multifactorial encephalopathy acute hypoxic respiratory failure Referrals: [facility] [Other] - 1 Week Amina Malone DO [Primary Care Provider] - 1 Week Discharge Medications: New lorazepam [Ativan] 0.5 mg tablet 0.5 mg PO Q6H PRN (Reason: anxiety/restlessness) Qty: 16 0RF Rx Instructions: hospice morphine concentrate 100 mg/5 mL (20 mg/mL) solution 5 mg PO Q3H PRN (Reason: pain/sob) Qty: 30 0RF Rx Instructions: Partial Fill upon patient request. hospice ondansetron 4 mg tablet,disintegrating 4 mg PO Q8H PRN (Reason: nausea and vomiting) Qty: 14 0RF Rx Instructions: hospice Discontinued Xifaxan 550 mg tablet 550 mg PO BID 30 Days Qty: 60 3RF Rx Instructions: Take one tablet by mouth twice a day multivitamin Tablet 1 tab PO DAILY trazodone 50 mg Tablet 100 mg PO BEDTIME sertraline 50 mg Tablet 150 mg PO DAILY@1200 buprenorphine-naloxone [Suboxone] 8-2 mg Film 1 film BUCCAL DAILY thiamine HCl (vitamin B1) 100 mg tablet 1 tab PO QAM oxybutynin chloride 5 mg tablet extended release 24hr 1 tab PO QAM folic acid 1 mg tablet 1 tab PO QAM baclofen 10 mg tablet 10 mg PO BEDTIME PRN (Reason: muscle spasm) Combivent Respimat 20-100 mcg/actuation mist 1 puff inhalation QID PRN (Reason: Wheezing) furosemide 40 mg tablet 40 mg PO BID@0900,1200 spironolactone 25 mg tablet 100 mg PO DAILY omeprazole 20 mg capsule,delayed release(DR/EC) 20 mg PO BIDAC docusate sodium 100 mg capsule 100 mg PO QAM albuterol sulfate [Ventolin HFA] 90 mcg/actuation HFA aerosol inhaler 2 puff INHALATION Q4-6H PRN (Reason: Wheezing) calcium carbonate-vitamin D3 [Oyster Shell Calcium-Vit D3] 500 mg-10 mcg (400 unit) tablet 2 tab PO QPM Asmanex HFA 200 mcg/actuation HFA aerosol inhaler 1 puff INHALATION BID lactulose 20 gram/30 mL solution 20 g PO BID PRN (Reason: Constipation) fluticasone propionate [Flonase] 50 mcg/actuation Pelsor,Suspension 1 spray INTRANASAL DAILY PRN (Reason: Congestion) Rx Instructions: administer into each nostril cholecalciferol (vitamin D3) 50 mcg (2,000 unit) capsule 50 mcg PO DAILY 90 Days Qty: 90 1RF Discharge Orders: Discharge Order (Routine); Ordered 05/26/23 Ordered By: [place] Diet: as tolerated Activity on Discharge: As tolerated Stand Alone Forms: Patient Portal Discharge page Care Plan Goals: comfort Health Concerns: hepatorenal syndrome VLADIMIR decompensated etoh/HCV liver failure with ascites/thrombocytopenia acute on chronic anemia multifactorial encephalopathy acute hypoxic respiratory failure strep pneumonia bacteremia SBP Plan of Treatment: Home with hospice Assessment: see discharge summary
== END 2023-05-26 11:24 | disposition hospice, home (50) | DRG 720 ==
LOC: HO.ED 13:56 → HO.EDOVER 16:40 → HO.IMC 20:03 → HO.ICU 05-22 13:19 → HO.IMC 05-23 17:27
PROVIDERS: Internal Medicine; Internal Medicine Pulmonary Disease; Physician Assistant; Physician Assistant Medical; Physician Assistant Surgical; Registered Nurse Community Health; Student in an Organized Health Care Education/Training Program; Admitting Provider Student in an Organized Health Care Education/Training Program; Emergency Provider Emergency Medicine; PCP Family Medicine; Visit Provider Hospitalist
DX: A41.9 Sepsis, unspecified organism (principal); J96.01 Acute respiratory failure with hypoxia; N17.0 Acute kidney failure with tubular necrosis; K76.7 Hepatorenal syndrome; G93.41 Metabolic encephalopathy; K65.2 Spontaneous bacterial peritonitis; E87.4 Mixed disorder of acid-base balance; D69.59 Other secondary thrombocytopenia; D62 Acute posthemorrhagic anemia; Z51.5 Encounter for palliative care; Z66 Do not resuscitate; K70.31 Alcoholic cirrhosis of liver with ascites; K76.82 Hepatic encephalopathy; N18.4 Chronic kidney disease, stage 4 (severe); J44.9 Chronic obstructive pulmonary disease, unspecified; F39 Unspecified mood [affective] disorder; F10.10 Alcohol abuse, uncomplicated; D63.1 Anemia in chronic kidney disease; F11.20 Opioid dependence, uncomplicated; R13.10 Dysphagia, unspecified; E88.A Wasting disease (syndrome) due to underlying condition; R19.5 Other fecal abnormalities; B18.2 Chronic viral hepatitis C; F17.210 Nicotine dependence, cigarettes, uncomplicated; Z71.6 Tobacco abuse counseling; Z91.148 Patient's other noncompliance with medication regimen for other reason; Z79.899 Other long term (current) drug therapy
CPT/HCPCS: 36415; 36600; 49083; 70450; 71045; 72125; 73502; 74018; 74176; 80048; 80053; 80076; 80307; 81001; 81003; 82042; 82140; 82248; 82272; 82436; 82550; 82570; 82803; 82945; 82947; 83605; 83615; 83690; 83735; 83986; 84100; 84133; 84156; 84157; 84295; 84300; 84478; 84540; 85007; 85025; 85027; 85045; 85610; 85652; 86850; 86900; 86901; 86923; 87040; 87070; 87073; 87077; 87205; 87493; 87507; 89051; 92526; 92610; 92950; 93005; 93970; 94640; 94660; 99285; C1758; C9113; J0613; J0696; J1939; J1940; J2060; J2270; J2354; J3371; J3411; J3430; J3475; J3480; J7120; P9016; P9047

== ENCOUNTER → 2023-05-17 11:29 | Outpatient (BNV) | payer MEDICAID, SELFPAY | PROVIDERS: Emergency Provider Emergency Medicine; PCP Family Medicine; Visit Provider Internal Medicine | DX: K76.7 Hepatorenal syndrome (principal); N17.9 Acute kidney failure, unspecified; N18.9 Chronic kidney disease, unspecified; K72.90 Hepatic failure, unspecified without coma; J96.91 Respiratory failure, unspecified with hypoxia; K65.2 Spontaneous bacterial peritonitis; K70.31 Alcoholic cirrhosis of liver with ascites; A41.9 Sepsis, unspecified organism; D64.9 Anemia, unspecified | CPT/HCPCS: 99223; 99233 ==

== ENCOUNTER → 2023-05-17 14:12 | Outpatient (BNV) | payer MEDICAID, SELFPAY | PROVIDERS: Admitting Provider Student in an Organized Health Care Education/Training Program; Emergency Provider Emergency Medicine; PCP Family Medicine; Visit Provider Internal Medicine | DX: R00.0 Tachycardia, unspecified (principal); R53.1 Weakness | CPT/HCPCS: 93010 ==

== ENCOUNTER 2023-05-17 16:25 | Outpatient (BNV) | payer MEDICAID, SELFPAY | END 2023-05-18 09:00 | PROVIDERS: Admitting Provider Student in an Organized Health Care Education/Training Program; Emergency Provider Emergency Medicine; PCP Family Medicine; Visit Provider Physician Assistant Surgical | DX: R18.8 Other ascites (principal); N19 Unspecified kidney failure | CPT/HCPCS: 49083 ==

== ENCOUNTER 2023-05-17 16:25 | Outpatient (BNV) | payer MEDICAID, SELFPAY | END 2023-05-23 08:00 | PROVIDERS: Admitting Provider Student in an Organized Health Care Education/Training Program; Emergency Provider Emergency Medicine; PCP Family Medicine; Visit Provider Physician Assistant Surgical | DX: K70.31 Alcoholic cirrhosis of liver with ascites (principal) | CPT/HCPCS: 49083 ==

== ENCOUNTER → 2023-05-17 16:25 | Outpatient (BNV) | payer MEDICAID, SELFPAY | PROVIDERS: Admitting Provider Student in an Organized Health Care Education/Training Program; Emergency Provider Emergency Medicine; PCP Family Medicine; Visit Provider Internal Medicine Pulmonary Disease | DX: K65.2 Spontaneous bacterial peritonitis (principal); E87.20 Acidosis, unspecified; K76.7 Hepatorenal syndrome | CPT/HCPCS: 99223; 99291 ==

== ENCOUNTER → 2023-05-17 16:25 | Outpatient (BNV) | payer MEDICAID, SELFPAY | PROVIDERS: Admitting Provider Student in an Organized Health Care Education/Training Program; Emergency Provider Emergency Medicine; PCP Family Medicine; Visit Provider Student in an Organized Health Care Education/Training Program | DX: K76.7 Hepatorenal syndrome (principal); E87.20 Acidosis, unspecified; K65.2 Spontaneous bacterial peritonitis; K76.82 Hepatic encephalopathy; J96.91 Respiratory failure, unspecified with hypoxia | CPT/HCPCS: 99223; 99233; 99239; 99499 ==

== ENCOUNTER → 2023-11-14 14:16 | Outpatient (RCR) | payer MEDICAID, SELFPAY ==
--- NOTE | 2020-04-02 16:14 | PM.HEMONCPN ---
Medical Summary - Medical Summary Date of Service: 04/02/20 Chief complaint: Follow-up Medical Summary: Diagnosis: Pancytopenia The patient has a longstanding history of drug abuse and has noted to be thrombocytopenic since 2012. Platelets at that time were about 100,000, gradually declined to below 100,000 in 2013 and currently at about 45,000. Elevated rheumatoid factor of 188.2 in 2011. ARNEL screen negative. She has chronic hepatitis C with a viral load of 1.75 in July 2014, significantly decreased compared to previous, HIV serologies negative. Hematology consultation in September 2014 revealed pancytopenia. Serum protein electrophoresis and immunofixation showed an IgG lambda monoclonal protein with an elevated IgG level of 3029 mg/dL. IgA also elevated at 991 and IgM elevated at 384 mg/dL. No hypercalcemia or renal dysfunction. Hepatitis serologies in June 2015, hepatitis C viral load less than 15. Coags revealed prothrombin time of 20, INR 1.7, APTT of 40.6, fibrinogen of 239, haptoglobin less than 8. Bone marrow biopsy performed 07/16/15 demonstrated increase in plasma cells 2 approximately 20%, predominance of kappa plasma cells. Hypercellular bone marrow but flow cytometry and immunohistochemistry did not show conclusive evidence of a monoclonal process. Flow cytometry demonstrated left shifted myelopoiesis no detectable aberrant marker expression, blasts not increased. Interval History Interval history: Patient is here in follow-up. She states that she did not go for her iron infusions after 1 or 2 treatments. She also missed her appointment for ultrasound. She continues to have easy skin bruising. She has a pet dog that frequently scratches her. She has had a few falls. She continues to drink every day. She is trying to cut back smoking. She denies any recent infections, no fever or chills. No nausea or emesis. No hematochezia or melena. 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) Elevated rheumatoid factor Hand paresthesia Hepatitis C Hepatomegaly History of abdominal paracentesis Microhematuria Panic attacks Polysubstance abuse Family History: Family History (Last Updated 03/18/20 @ 10:16 by Amanda Butts CMA) Father Family history of high blood pressure Mother Alive and well Surgical History: Surgical History (Last Updated 03/18/20 @ 10:22 by Francis Rivera MD) History of delivery History of esophagogastroduodenoscopy (EGD) Onset Date: ~02/2017 Home Medications and Allergies Home Medications Medication Instructions Recorded Confirmed Type beclomethasone dipropionate [Qvar 1 inh INHALATION BID 02/24/20 03/18/20 History RediHaler] buprenorphine-naloxone [Suboxone] 1 film BUCCAL DAILY 02/24/20 03/18/20 History fluticasone propionate [Flonase] 1 spray INTRANASAL DAILY 02/24/20 03/18/20 History furosemide 40 mg PO DAILY 02/24/20 03/18/20 History lisinopril 5 mg PO DAILY 02/24/20 03/18/20 History multivitamin 1 tab PO DAILY 02/24/20 03/18/20 History omeprazole 20 mg PO BID 02/24/20 03/18/20 History sertraline 50 mg PO DAILY 02/24/20 03/18/20 History spironolactone 25 mg PO DAILY 02/24/20 03/18/20 History thiamine HCl (vitamin B1) 100 mg PO DAILY 02/24/20 03/18/20 History trazodone 50 mg PO BEDTIME 02/24/20 03/18/20 History Allergies Allergy/AdvReac Type Severity Reaction Status Date / Time No Known Allergies Allergy Verified 03/18/20 10:14 Exam Vital signs: Vital Signs Temp Pulse Resp BP Pulse Ox 04/02/20 16:34 98.5 F 86 18 141/67 H 93 Intake and Output 04/02/20 04/02/20 04/02/20 06:59 14:59 22:59 Other: Weight 51.2 kg Patient Weight 04/03/20 06:59 Weight 51.2 kg - Constitutional Present: no acute distress - Routine HEENT Exam Head: Present: normal inspection Eye: Present: EOMI - Routine Neck Exam Present: full ROM - Routine Respiratory Exam Present: CTAB - Routine Cardiovascular Exam Cardiovascular: Present: S1, S2 Data - Labs CBC & Chem 7: 04/02/20 16:20 Progress Note: A/P (1) Pancytopenia Status: Acute Assessment and plan: 1. This is a 53-year-old female with history of chronic hepatitis C, as well as alcohol-related liver cirrhosis/ascites with pancytopenia and IgG lambda monoclonal gammopathy. Repeat serum immunofixation in 2017 showed no monoclonal gammopathy. Bone marrow biopsy performed 07/16/15 demonstrated increase in plasma cells to approximately 20%, predominance of kappa plasma cells. Hypercellular bone marrow but flow cytometry and immunohistochemistry did not show conclusive evidence of a monoclonal process. Flow cytometry demonstrated left shifted myelopoiesis no detectable aberrant marker expression, blasts not increased. She is doing about the same. Unfortunately, she continues to drink every day and has had a few falls. She has pancytopenia, her blood counts are stable. Depending on her iron studies, repeat iron infusion will be scheduled. Follow-up in 3 months. - Time Spent With Patient Total time spent is greater than 50% in coordination of care (as documented) at patient's floor/unit and/or counseling patient: 15 - 24 minutes
[2020-04-02 16:34] VITALS: BP 141/67; PULSE 86; RESP 18; TEMP 36.9; O2SAT 93
[2020-04-02 16:41] LABS: INTERNATIONAL NORM RATIO 1.8 (0.9-1.1)
[2020-04-02 16:49] LABS: Basophils Percent Auto 0.4 % (0-2); Eosinophils Percent Auto 1.4 % (0-4); Hemoglobin 9.1 g/dl (12.0-16.0); Lymphocytes Absolute Auto 0.5 X10*3/uL (1.2-4.9); Lymphocytes Percent Auto 16.9 % (20-40); MANUAL DIFF FLAG SCAN; Mean Corpuscular HGB Conc 32.5 g/dl (31.0-35.0); Mean Corpuscular Hemoglobin 28.9 pg (27.0-33.0); Mean Corpuscular Volume 88.9 fL (80-98); Monocytes Absolute Auto 0.4 X10*3/uL (0.1-1.2); Monocytes Percent Auto 13.3 % (2-11); Neutrophils Absolute Auto 1.9 X10*3/uL (2.0-8.3); PLT ABN DIST 1; Platelet Count 43 X10*3/uL (160-400); Red Blood Count 3.15 X10*6/uL (4.20-5.50); Red Cell Distribution Width 21.7 % (11.0-16.0); SCAN SMEAR FLAG 1; White Blood Count 2.8 X10*3/uL (4.8-10.8)
[2020-04-02 16:58] LABS: Alanine Aminotransferase 38 U/L (0-31); Albumin Level 2.6 g/dL (3.5-5.0); Alkaline Phosphatase 101 U/L (39-117); Aspartate Amino Transferase 88 U/L (5-31); Bilirubin Direct 1.1 mg/dL (0.0-0.5); Bilirubin Total 1.5 mg/dL (0.0-1.0); Iron 72 mcg/dL (30-160); Percent Iron Saturation 18 % (15-50); Total Iron Binding Capacity 398 mcg/dL (228-428); Total Protein 7.9 g/dL (6.5-8.0); Unsaturated Iron Binding 326 ug/dL
[2020-04-02 17:02] LABS: SLIDE REVIEW VERIFIED
[2020-04-02 17:18] LABS: Ferritin 28 ng/mL (10-250)
[2020-04-07 09:33] LABS: Hepatitis A Antibody IgG REACTIVE (Nonreactive); ~Hepatitis A Antibody IgG 11.96 S/CO (0.00-0.99)
--- NOTE | 2022-05-25 10:45 | HE.ONCSEC ---
mailed to pt no show ltr
== END | disposition home or self-care (01) ==
LOC: HO.ONC 04-02 15:51
PROVIDERS: Internal Medicine Gastroenterology; PCP Family Medicine; Visit Provider Internal Medicine
DX: D61.818 Other pancytopenia (principal); B18.2 Chronic viral hepatitis C; K70.31 Alcoholic cirrhosis of liver with ascites
CPT/HCPCS: 36415; 80076; 82728; 83540; 85025; 85610; 86708; 99214